=== PATIENT | male | born 1945 | race Caucasian/White ===

== ENCOUNTER 2017-09-12 08:43 | Day surgery (SDC) | payer OTHER ==
--- NOTE | 2017-09-07 16:40 | EKG ---
Test Date: 2017-09-07 Test Time: 16:37:21 Chair Mender: DAMARIS MEASUREMENT RESULTS: Intervals: Rate: 76 CA: 184 QRSD: 100 QT: 390 QTc: 438 [place]: P: 41 CA: 184 QRS: -34 T: 45 INTERPRETIVE STATEMENTS: Normal sinus rhythm Left axis deviation Abnormal ECG Compared to ECG 08/11/2017 12:57:16 Left-axis deviation now present Electronically Signed On 09-07-17 16:39:24 CDT by Pratik Fuchs
--- NOTE | 2017-09-07 16:54 | RAD REPORT ---
EXAM DESCRIPTION: RADOP - Outpt Chest Pa/Lat (2 Views) - 09/07/2017 4:39 pm CLINICAL HISTORY: Preop COMPARISON: August 2017 FINDINGS: A 9 millimeter nodular opacity overlies the right lung base. The left lung appears clear. The heart is normal size. The aorta is tortuous/ectatic. A central venous catheter has its limbs in the superior vena cava. IMPRESSION: 9 millimeter nodular opacity overlying the right lung base likely either represents a pu lmonary nodule or nipple shadow. Oblique and frontal chest films with a right nipple marker is recomm ended for further evaluation
[2017-09-07 16:59] LABS: Absolute Lymphocytes (CBC) 1.3 K/uL (0.7-4.9); Absolute Monocytes 0.8 K/uL (0.1-1.3); Absolute Neutrophil 7.1 K/uL (1.8-8.0); Basophils % 1.1 % (0-1.3); Eosinophils % 8.3 % (0-4.4); Hematocrit 32.6 % (39.6-49.0); Lymphocytes % 13.1 % (15.3-44.8); MCH 27.1 pg (27.0-35.0); MCV 84.4 fL (80-100); MPV 7.8 fL (7.6-11.3); Monocytes % 7.5 % (3.3-12.3); RBC Red Blood Cell Count 3.86 M/uL (4.33-5.43)
[2017-09-07 17:04] LABS: Urine Appearance CLEAR; Urine Bilirubin NEGATIVE (NEG); Urine Blood 2+ (NEG); Urine Color YELLOW; Urine Glucose NEGATIVE (NEG); Urine Protein 1+ (NEG); Urine Specific Gravity <=1.005 (1.005-1.030); Urine Urobilinogen 0.2 mg/dL (0.2-1.0); Urine pH 7.5 (5.0-7.0)
[2017-09-07 17:10] LABS: Protime INR 1.07
[2017-09-07 17:14] LABS: Urine Microscopic Reflex ORDER UMIC
[2017-09-07 17:30] LABS: Urine Amorphous Sediment 1+ /HPF (NONE SEEN); Urine Bacteria <20 /HPF (NONE SEEN); Urine Culture Reflex Order NOT NEEDED
[2017-09-12] MEDS ORDERED: NA CHLORIDE 0.9% 1,000 ML ONE (08:56)
[2017-09-12] MEDS ORDERED: MIDAZOLAM HCL 2 MG/2 ML INJ ONE (09:45)
[2017-09-12] MEDS ORDERED: PROPOFOL 200 MG/20 ML VIAL IV ONE (09:45)
[2017-09-12] MEDS ORDERED: LIDOCAINE 1% MPF 5 ML VIAL ONE (09:46)
[2017-09-12] MEDS ORDERED: FENTANYL CITR 100 MCG/2 ML ONE ×2 (09:46→10:54)
[2017-09-12] MEDS: GENTAMICIN 80 MG/100 ML BAG 80 MG/100 ML BAG IV ONE ×3 (10:10→10:20)
[2017-09-12] MEDS ORDERED: Phenylephrine HCl 10 MG/ML 1 ML VIAL ONE (10:48)
[2017-09-12] MEDS ORDERED: KETOROLAC 30 MG/ML INJ ONE (11:17)
[2017-09-12] MEDS ORDERED: ONDANSETRON 4 MG/2 ML VIAL ONE (11:17)
[2017-09-12 12:25] VITALS: O2SAT 100
[2017-09-12] MEDS ORDERED: IRR IRR ONE (12:26)
[2017-09-12] MEDS ORDERED: NACL 0.9% IRR ONE (12:26)
[2017-09-12 14:16] VITALS: BP 166/76; TEMP 96.5
== END 2017-09-12 14:00 | disposition home or self-care (01) ==
LOC: OR 08:43
PROVIDERS: ATTEND Urology
PROC: 0VT08ZZ Resection of Prostate, Via Natural or Artificial Opening Endoscopic (ICD-10-PCS; principal; 2017-09-12 10:00)
DX: N40.1 Benign prostatic hyperplasia with lower urinary tract symptoms (principal); R33.8 Other retention of urine; R39.12 Poor urinary stream; N13.9 Obstructive and reflux uropathy, unspecified; N42.9 Disorder of prostate, unspecified; I10 Essential (primary) hypertension; K21.9 Gastro-esophageal reflux disease without esophagitis; I12.0 Hypertensive chronic kidney disease with stage 5 chronic kidney disease or end stage renal disease; N18.6 End stage renal disease; Z99.2 Dependence on renal dialysis; Z80.3 Family history of malignant neoplasm of breast
CPT/HCPCS: 36415; 52601; 71046; 80048; 85025; 85610; 85730; 87077; 87086; 87088; 87186; 88305; 93005; J1580; J2250; J2370; J2405; J3010 ×2; J7030; 81003; 81015

== ENCOUNTER 2018-04-12 09:06 | Day surgery (SDC) | payer OTHER ==
[2018-04-11 14:35] LABS: Absolute Monocytes 0.6 K/uL (0.1-1.3); Absolute Neutrophil 5.5 K/uL (1.8-8.0); Basophils % 0.7 % (0-1.3); Hematocrit 35.6 % (39.6-49.0); Lymphocytes % 22.9 % (15.3-44.8); MCH 30.6 pg (27.0-35.0); MCV 90.4 fL (80-100); MPV 8.4 fL (7.6-11.3); Monocytes % 7.2 % (3.3-12.3); RBC Red Blood Cell Count 3.94 M/uL (4.33-5.43)
--- OUTSIDE RECORDS SUMMARY | 2018-04-12 09:21 | XMS REPORT | Continuity of Care Document ---
:1945 Author Organization Interface Problems Problem Status Onset Classification Date Comments Source Date Reported SDH, SYNCOPE Active 11/14/[address] SYNCOPE Active 11/14/[address] Alcoholism, Resolved Problem 12/06/2015 OPID chronic [place],[facility] BPH (<span Resolved Problem 12/06/2015 OPID ID="[id number] [facility] ">Confirmed</spa [place] n>) [facility] HTN (<span Resolved Problem 12/06/2015 OPID ID="[id number] [facility] ">Confirmed</spa [place] n>) [facility] Obesity Active Problem 12/06/2015 OPID [place] NONTRAUMATIC Active [facility] SUBDURAL Medical HEMORRHAGE, Center UNSPEC Medications Medication Details Route Status Patient Ordering Order Source Instructions Provider Date Levetiracetam 500 mg=1 Active [facility] 500 MG Oral tab, PO, 016 Medical Tablet Q12H, Take Center until night of 11/21/15, # 11 tab, 0 Refill(s) Flomax 0.4 mg, 1 No Longer [facility] cap, Route: Active 016 Medical PO, Drug Center form: CAP, Q12H, Dosing Weight 113.636, kg, Start date: 11/15/15 9:00:00 CDT, Duration: 30 day, Stop date: 12/14/15 21:00:00 CDTNotes: (Same As: Flomax) "Do Not Crush" Saline Flush 10 ml, No Longer [facility] 0.9% Route: IVP, Active 016 Medical Drug Form: Center INJ, Dosing Weight 113.636, kg, Q12H, Start date: 11/15/15 9:00:00 CDT, Duration: 30 day, Stop date: 12/14/15 21:00:00 CDTNotes: (Same as: BD Posiflush) Docusate 100 mg, 1 No Longer [facility] cap, Route: Active 016 Medical PO, Drug Center form: CAP, Q12H, Dosing Weight 113.636, kg, Start date: 11/15/15 9:00:00 CDT, Duration: 30 day, Stop date: 12/14/15 21:00:00 CDTNotes: (Same as: Colace) (Do Not Crush) sennosides, FPC 8.6 mg, 1 No Longer [facility] tab, Route: Active 016 Medical PO, Drug Center Form: TAB, Dosing Weight 113.636, kg, Q12H, Start date: 11/15/15 9:00:00 CDT, Duration: 30 day, Stop date: 12/14/15 21:00:00 CDTNotes: (Same as: Senokot) Levetiracetam 500 mg, 1 No Longer [facility] tab, Route: Active 016 Medical PO, Drug Center form: TAB, Q12H, Dosing Weight 113.636, kg, Start date: 11/15/15 9:00:00 CDT, Stop date: 11/21/15 22:00:00 CDTNotes: (Same as:Keppra) metoprolol 25 mg, 1 No Longer [facility] tartrate tab, Route: Active 016 Medical PO, Drug Center form: TAB, Q12H, Dosing Weight 113.636, kg, Start date: 11/15/15 9:00:00 CDT, Duration: 30 day, Stop date: 12/14/15 21:00:00 CDTNotes: (Same as: Lopressor) Protonix 40 mg, 1 No Longer [facility] tab, Route: Active 016 Medical PO, Drug Center form: ECTAB, Before Breakfast, Start date: 11/15/15 8:30:00 CDT, Duration: 30 day, Stop date: 12/15/15 7:30:00 CDTNotes: Tablet should not be chewed or crushed. (Same as: Protonix) Calcium 1,000 mg, 10 Inactive [facility] Gluconate mL, Route: 016 Medical IVPB, ONCE, Center Dosing Weight 113.636, kg, Start date: 11/15/15 8:15:00 CDT, Stop date: 11/15/15 8:15:00 CDTNotes: WASTE: F/P - Sink; E - Municipal Trash Bin Omeprazole 40 mg, Inactive [facility] Route: PO, 016 Medical Drug form: [place] ECCAP, Before Breakfast, Dosing Weight 113.636, kg, Start date: 11/15/15 7:30:00 CDT, Duration: 30 day, Stop date: 12/14/15 7:30:00 CDT Hydralazine 20 mg, 1 mL, No Longer [facility] Route: IVP, Active 016 Medical Drug form: [place] INJ, Q4H, Dosing Weight 113.636, kg, PRN Other -See Comment, Start date: 11/15/15 6:30:00 CDT, Duration: 30 day, Stop date: 12/15/15 6:29:00 CDT, SBP >160Notes: (Same as: Apresoline) Push over 5 minutes Omeprazole 40 MG 40 mg=1 cap, Active [facility] Enteric Coated PO, Daily, # 016 Medical Capsule 30 cap, 0 [place] [Prilosec] Refill(s) Bupropion PO, 0 Active [facility] Refill(s) [address] [place] [address] Lisinopril PO, BID, 0 Active [facility] Refill(s) [address] [place] [address] Flomax 0.4 mg, PO, Active [facility] BID, 0 016 Medical Refill(s) [place] metoprolol BID, 0 Active [facility] tartrate Refill(s) [address] [place] [address] Saline Flush 10 ml, No Longer [facility] 0.9% Route: IVP, Active 016 Medical Drug Form: [place] INJ, Dosing Weight 113.636, kg, PRN, PRN Line Flush, Start date: 11/15/15 2:45:00 CDT, Duration: 30 day, Stop date: 12/15/15 2:44:00 CDTNotes: (Same as: BD Posiflush) Ondansetron 4 mg, 2 mL, No Longer [facility] Route: IVP, Active 016 Medical Drug form: [place] INJ, Q8H, Dosing Weight 113.636, kg, PRN Nausea & Vomiting, Start date: 11/15/15 2:45:00 CDT, Duration: 30 day, Stop date: 12/15/15 2:44:00 CDTNotes: (Same as: Zofran) MEDICATION WASTE Product Size: 4 mg Product Wasted: ___ mg Levetiracetam 1,000 mg, Inactive [facility] Route: IVPB, 016 Medical ONCE, Dosing Center Weight 113.636, kg, Start date: 11/15/15 2:45:00 CDT, Stop date: 11/15/15 2:45:00 CDTNotes: Same as Keppra Mix with 100 mL NS, LR or D5W MEDICATION WASTE Product Size: 500 mg Product Wasted: ___ mg Allergies, Adverse Reactions, Alerts Substance Category Reaction Severity Reaction Status Date Comments Source type Reported Immunizations Immunization Date Given Site Status Last Updated Comments Source Results Order Name Results Value Reference Date Interpretation Comments Source Range Brain wo Brain wo EXAM: CT BRAIN WITHOUT CONTRAST 12/02 [facility] contrast CT contrast CT [facility] INDICATION: Subdural hemorrhage Read by: Alena Case MD Dictated Date/time: 12/03/15 11:46 Electronically Signed by: Alena Case MD 12/03/15 11:49 FINAL REPORT COMPARISON: Outside CT 11/15/2015 TECHNIQUE: Routine axial CT images of the brain were obtained. DISCUSSION: Stable size of right frontal convexity subdural hemorrhage now decreased in attenuation. No interval new hemorrhage. No mass effect. No acute infarction. No hydrocephalus. Calvarium is intact. Paranasal sinuses are clear. IMPRESSION: Stable size of right convexity subdural hematoma. No interval new hemorrhage. No mass effect. CHEM PANEL Phosphorus 2.8 mg/dL 2.5 - 4.5 11/15 [facility]2015 [facility] CHEM PANEL Magnesium Lvl 2.1 mg/dL 1.8 - 2.4 11/15 [facility]2015 [facility] ELECTROLYTE AGAP 15.1 meq/L 10.0 - 11/15 [facility] S 20.0 [facility] ELECTROLYTE eGFR 87 11/15 Result Comment: The eGFR is calculated using the CKD-EPI formula. In most young, healthy individuals the eGFR will be >90 mL/ min/1.73m2. The eGFR declines with age. An eGFR of 60-89 may be normal in [facility] mL/min/1.7 /2015 some populations, particularly the elderly, for whom the CKD-EPI formula has not been extensively validated. Use of the eGFR is not recommended in the following populations: [address] Individuals with unstable creatinine concentrations, including patients and those with serious co-morbid conditions. Patients with extremes in muscle mass or diet. The data above are obtained from the National Kidney Disease Education Program (NKDEP) which additionally recommends that when the eGFR is used in patients with extremes of body mass index for purposes of drug dosing, the eGFR should be multiplied by the estimated BMI. ELECTROLYTE Sodium Lvl 140 meq/L 135 - 145 11/15 [facility]2015 [facility] ELECTROLYTE Potassium Lvl 4.1 meq/L 3.5 - 5.1 11/15 [facility]2015 [facility] ELECTROLYTE Chloride Lvl 108 meq/L 95 - 109 11/15 [facility]2015 [facility] ELECTROLYTE BUN 11 mg/dL 7 - 22 11/[address] ELECTROLYTE Creatinine 0.86 mg/dL 0.50 - 11/15 [facility] Lvl 1.40 [facility] ELECTROLYTE Glucose Lvl 101 mg/dL 70 - 99 11/15 [facility]2015 [facility] ELECTROLYTE CO2 21 meq/L 24 - 32 11/15 [facility]2015 [facility] ELECTROLYTE Calcium Lvl 8.3 mg/dL 8.5 - 10.5 11/15 [facility]2015 [facility] HEMATOLOGY MPV 7.6 fL 7.4 - 10.4 11/15 [facility]2015 [facility] HEMATOLOGY RDW 13.1 % 11.5 - 11/15 [facility] 14.5 [facility] HEMATOLOGY MCV 88.8 fL 80.0 - 11/15 [place] 94.0 [facility] HEMATOLOGY MCH 30.2 pg 27.0 - 11/15 [place] 31.0 [facility] HEMATOLOGY WBC 8.5 K/CMM 3.7 - 10.4 11/15 [facility]2015 [facility] HEMATOLOGY RBC 4.57 M/CMM 4.70 - 11/15 [place] 6.10 [facility] HEMATOLOGY Hgb 13.8 g/dL 14.0 - 11/15 [place] 18.0 [facility] HEMATOLOGY Hct 40.5 % 42.0 - 06/13 [facility] 54.0 /2015 [facility] HEMATOLOGY MCHC 34.0 g/dL 32.0 - 11/15 [facility] 36.0 [facility] HEMATOLOGY Platelet 200 K/CMM 133 - 450 11/[address] HEMATOLOGY Lymphocytes 25.4 % 20.0 - 11/15 [facility] 40.0 /2015 [facility] HEMATOLOGY Segs 59.0 % 45.0 - 11/15 [facility] 75.0 [facility] HEMATOLOGY Basophils 0.4 % 0.0 - 1.0 11/[address] HEMATOLOGY Segs-Bands # 5.0 K/CMM 1.5 - 8.1 11/[address] HEMATOLOGY Lymphocytes # 2.1 K/CMM 1.0 - 5.5 11/[address] HEMATOLOGY Monocytes 8.9 % 2.0 - 12.0 11/[address] HEMATOLOGY Eosinophils 6.3 % 0.0 - 4.0 11/[address] HEMATOLOGY Eosinophils # 0.5 K/CMM 0.0 - 0.5 11/[address] HEMATOLOGY Monocytes # 0.8 K/CMM 0.0 - 0.8 11/[address] PARATHYROID Ca Norm WB 1.14 1.05 - 11/15 [facility] PROFILE mMol/L 1. [facility] PARATHYROID Ca Ion WB 1.14 1. - 11/15 [facility] PROFILE mMol/L [address] [place] [address] URINE AND UA Hyal Cast 3 /LPF 0 - 2 11/14 [facility] /[address] [place] [address] URINE AND UA Mucus Few /LPF None Seen 11/14 [facility] /LPF /[address] [place] [address] URINE AND UA Amorph Occasional None Seen 11/14 [facility] Kimberly /HPF /HPF /[address] [place] [address] URINE AND UA Sq Epi None Seen 11/[address] URINE AND UA Renal Epi RARE <=0 11/[address] URINE AND UA <=1.0 0.1 - 1.0 11/14 [facility] Urobilinogen mg/dL /[address] [place] [address] URINE AND UA Bili Negative Negative 11/14 [facility] /[address] [place] [address] *NA* Center (11/15/15 11:14 AM) URINE AND UA Ketones Negative Negative 11/14 [facility] STOOL mg/dL mg/dL /2015 [facility] URINE AND UA Glucose Negative Negative 11/14 [facility] STOOL mg/dL mg/dL /2015 [facility] URINE AND UA Spec Grav 1.005 <=1.030 11/14 [facility] URINE AND UA Bacteria Occasional None Seen 11/14 [facility] /HPF /HPF /2015 [facility] URINE AND UA RBC null 0 - 2 11/14 [facility] /2015 [facility] URINE AND UA WBC null 0 - 5 11/14 [facility] /2015 [facility] URINE AND UA Leuk Est Negative Negative 11/14 [facility] (11/15/15 11:14 AM) [place] URINE AND UA Nitrite Negative Negative 11/14 [facility] (11/15/15 11:14 AM) [place] URINE AND UA Blood Negative Negative 11/14 [facility] (11/15/15 11:14 AM) [place] URINE AND UA pH 5.5 5.0 - 8.0 11/14 [facility] URINE AND UA Protein Negative Negative 11/14 [facility] mg/dL mg/dL [facility] URINE AND UA Color Light Yellow Yellow 11/14 [facility] *NA* Center (11/15/15 11:14 AM) URINE AND UA Turbidity Clear Clear 11/14 [facility] (11/15/15 11:14 AM) [place] CARDIAC Troponin-I null 0.00 - 11/14 [facility] ENZYMES 0.40 /2015 [facility] CARDIAC Troponin-T null 0.000 - 11/14 [facility] ENZYMES 0.100 /2015 [facility] CARDIAC Total CK 87 unit/L 12 - 191 11/14 [facility] ENZYMES /2015 [facility] CARDIAC CK MB Index 2.6 0.0 - 2.5 11/14 [facility] ENZYMES /2015 [facility] CARDIAC CK MB 2.3 ng/mL 0.5 - 3.6 11/14 [facility] ENZYMES 2015 [facility] CHEM PANEL Phosphorus 3.0 mg/dL 2.5 - 4.5 11/14 [facility]2015 [facility] CHEM PANEL Magnesium Lvl 2.4 mg/dL 1.8 - 2.4 11/[address] CHEM PANEL Total Protein 6.2 g/dL 6.4 - 8.4 11/14 [facility] CHEM PANEL Albumin Lvl 3.3 g/dL 3.5 - 5.0 11/14 [facility]2015 [facility] CHEM PANEL AST 15 unit/L 0 - 37 11/14 [facility]2015 [facility] CHEM PANEL ALT 31 unit/L 0 - 65 11/[address] CHEM PANEL Bili Direct 0.1 mg/dL 0.0 - 0.3 11/14 [facility]2015 [facility] CHEM PANEL Bili Total 0.6 mg/dL 0.2 - 1.3 11/14 2015 [facility] CHEM PANEL Alk Phos 31 unit/L 39 - 136 11/14 2015 [facility] CHEM PANEL Globulin 2.9 g/dL 2.0 - 4.0 11/14 [facility]2015 [facility] CHEM PANEL A/G Ratio 1.1 0.7 - 1.6 11/[address] CHEM PANEL Bili Indirect 0.5 mg/dL 0.0 - 1.0 11/14 [facility]2015 [facility] CHEM PANEL Lactic Acid 1.0 mMol/L 0.5 - 2.2 11/14 [facility] CHEM PANEL eGFR 77 11/14 Result Comment: The eGFR is calculated using the CKD-EPI formula. In most young, healthy individuals the eGFR will be >90 mL/ min/1.73m2. The eGFR declines with age. An eGFR of 60-89 may be normal in [facility] mL/min/1. some populations, particularly the elderly, for whom the CKD-EPI formula has not been extensively validated. Use of the eGFR is not recommended in the following populations: [address] Individuals with unstable creatinine concentrations, including patients and those with serious co-morbid conditions. Patients with extremes in muscle mass or diet. The data above are obtained from the National Kidney Disease Education Program (NKDEP) which additionally recommends that when the eGFR is used in patients with extremes of body mass index for purposes of drug dosing, the eGFR should be multiplied by the estimated BMI. CHEM PANEL Sodium Lvl 138 meq/L 135 - 145 11/14 [facility] CHEM PANEL Potassium Lvl 4.4 meq/L 3.5 - 5.1 11/[address] CHEM PANEL Chloride Lvl 109 meq/L 95 - 109 11/14 [facility]2015 [facility] CHEM PANEL CO2 18 meq/L 24 - 32 11/14 [facility] CHEM PANEL Calcium Lvl 8.0 mg/dL 8.5 - 10.5 11/14 [facility] CHEM PANEL Glucose Lvl 89 mg/dL 70 - 99 11/14 [facility] CHEM PANEL BUN 11 mg/dL 7 - 22 11/14 [facility] CHEM PANEL Creatinine 0.98 mg/dL 0.50 - 11/14 [facility] Lvl 1.40 /2015 [facility] CHEM PANEL AGAP 15.4 meq/L 10.0 - 11/14 [place] 20.0 [facility] HEMATOLOGY Eosinophils # 0.4 K/CMM 0.0 - 0.5 11/14 [facility] HEMATOLOGY Monocytes 7.9 % 2.0 - 12.0 11/14 [facility] HEMATOLOGY Segs 68.3 % 45.0 - 11/14 [place] 75.0 /2015 [facility] HEMATOLOGY Lymphocytes 19.3 % 20.0 - 11/14 [place] 40.0 [facility] HEMATOLOGY Lymphocytes # 1.8 K/CMM 1.0 - 5.5 11/14 [facility] HEMATOLOGY Segs-Bands # 6.3 K/CMM 1.5 - 8.1 11/14 [facility] HEMATOLOGY Basophils 0.4 % 0.0 - 1.0 11/14 [facility] HEMATOLOGY Eosinophils 4.1 % 0.0 - 4.0 11/14 [facility] HEMATOLOGY Monocytes # 0.7 K/CMM 0.0 - 0.8 11/14 [facility] HEMATOLOGY INR 1.12 0.85 - 11/14 [place] 1.17 /2015 [facility] HEMATOLOGY PTT 26.0 s 22.9 - 11/14 [place] 35.8 /2016 [facility] HEMATOLOGY PT 14.7 s 12.0 - 06 [place] 14.7 /2015 [facility] HEMATOLOGY Hct 41.3 % 42.0 - 11/14 [place] 54.0 /2016 [facility] HEMATOLOGY MCV 90.2 fL 80.0 - 11/14 [place] 94.0 /2015 [facility] HEMATOLOGY Hgb 13.8 g/dL 14.0 - 06 [place] 18.0 [facility] HEMATOLOGY MCHC 33.5 g/dL 32.0 - 06 [facility] 36.0 /2015 [facility] HEMATOLOGY MPV 7.5 fL 7.4 - 10.4 11/[address] HEMATOLOGY RDW 13.1 % 11.5 - 11/14 [facility] 14.5 [facility] HEMATOLOGY Platelet 212 K/CMM 133 - 450 11/[address] HEMATOLOGY MCH 30.2 pg 27.0 - 11/14 [facility] 31.0 [facility] HEMATOLOGY WBC 9.2 K/CMM 3.7 - 10.4 11/14 [facility] /[address] [place] [address] HEMATOLOGY RBC 4.58 M/CMM 4.70 - 11/14 [facility] 6.10 [facility] PARATHYROID Ca Norm WB 1.03 1. - 11/14 [facility] PROFILE mMol/L 1. [facility] PARATHYROID Ca Ion WB 1.04 1. - 11/14 [facility] PROFILE mMol/L 1. [facility] SPECIAL Hgb A1C 5.0 % <=5.6 % 11/14 [facility] CHEMISTRY [facility] Chest 1view Chest 1view EXAM: XR CHEST 1 VIEW 11/14 [facility] DX DX [facility] DATE: 11/15/2015 8:19 AM CDT Read by: Brenna Chan MD Dictated Date/time: 11/15/15 13:19 Electronically Signed by: Brenna Chan MD 11/15/15 14:00 FINAL REPORT INDICATION: Abnormal chest sounds. FINDINGS: Comparison is made to November 13. The cardiomediastinal silhouette is stable. The lungs are clear bilaterally well-expanded. No pleural effusions are seen. IMPRESSION: The lungs are clear. Brain wo Brain wo EXAM: CT BRAIN WITHOUT CONTRAST 11/14 [facility] contrast CT contrast CT /[address] [place] [address] DATE: 11/15/2015 1:57 AM CDT Read by: Laura Mistry Dictated Date/time: 11/15/15 09:54 Electronically Signed by: Laura Mistry 11/15/15 09:57 FINAL REPORT INDICATION: Headache with Dizziness and Giddiness COMPARISON: Outside CT dated 11/14/2015 at 2130 hours TECHNIQUE: Routine axial CT images of the brain were obtained. DLP: 1174 mGy-cm FINDINGS: A subdural hematoma in the right frontal convexity, with a maximum thickness of 12 mm is identified, similar in appearance as compared to the previous exam. Owing to pre-existing volume loss, there is n o significant mass effect. No parenchymal abnormality is demonstrated. The ventricles and sulci are prominent. The paranasal sinuses, orbits and mastoids are unremarkable. There are atherosclerotic changes at the carotid siphons. IMPRESSION: Recent subdural hematoma in the right cerebral convexity, without significant mass effect or interval change. Resident preliminary report: Creator: Junior Black Date: Nov 15, 2015 02:13:21 Subject: 1.2 cm right frontoparietal SDH is unchanged from [facility] at 2129 hours november 13. No shift or herniation No other traumatic findings Vital Signs Vital Sign Value Date Comments Source Temperature Oral (F) 97.4 F 11/16/2015 [facility] Respitory Rate 36 11/16/2015 [facility] Systolic (mm Hg) 156 11/16/2015 [facility] Diastolic (mm Hg) 67 11/16/2015 [facility] Respitory Rate 28 11/16/2015 [facility] Systolic (mm Hg) 152 11/16/2015 [facility] Diastolic (mm Hg) 69 11/16/2015 [facility] Systolic (mm Hg) 147 11/16/2015 [facility] Diastolic (mm Hg) 67 11/16/2015 [facility] Respitory Rate 37 11/16/2015 [facility] Temperature Oral (F) 96.9 F 11/16/2015 [facility] Temperature Oral (F) 97.6 F 11/16/2015 [facility] Height 187.96 cm 11/15/2015 [facility] BMI Calculated 32.17 11/15/2015 [facility] Weight 113.636 11/15/2015 [facility] Weight 113.636 11/15/2015 [facility] BMI Calculated 32.17 11/15/2015 [facility] Height 187.96 cm 11/15/2015 [facility] Heart Rate 75 11/15/2015 [facility] Encounters Location Location Encounter Encounter Reason Attending ADM DC Status Source Details Type Number For Provider Date Date Visit [facility] [id number] Pe[facility] 11/14 11/15 [facility] /2015 [facility] Outpt Diag [id number] Arturo 12/02 12/03 [facility]2015 [facility] Procedures Procedure Code Date Perfomer Comments Source Tonsillectomy [id number] [facility] [place] Tonsillectomy [id number] [facility]
[2018-04-12] MEDS ORDERED: Ringers Lactate 1,000 ML IV ONE (10:12)
[2018-04-12] MEDS ORDERED: CEFAZOLIN/SWI 1gm 1 GM/10 ML SYR ONE (10:12)
[2018-04-12] MEDS ORDERED: BUPIVACAINE 0.5% PF 10 ML VIAL ONE (10:34)
[2018-04-12] MEDS ORDERED: MIDAZOLAM HCL 2 MG/2 ML INJ ONE (10:38)
[2018-04-12] MEDS ORDERED: LIDOCAINE 1% MPF 5 ML VIAL ONE (10:38)
[2018-04-12] MEDS ORDERED: PROPOFOL 200 MG/20 ML VIAL IV ONE (10:38)
[2018-04-12] MEDS ORDERED: FENTANYL CITR 100 MCG/2 ML ONE (10:38)
[2018-04-12 11:54] VITALS: TEMP 97.7; O2SAT 98
[2018-04-12] MEDS ORDERED: CODEINE 30MG/APAP 300MG TAB ONE (12:16)
[2018-04-12 13:46] VITALS: BP 151/70
--- NOTE | 2018-04-12 14:03 | OP ---
Date of Procedure: 04/12/2018 Surgeon: Tucker Dinh MD Preoperative Diagnosis: History of renal failure. Postoperative Diagnosis: History of renal failure. Procedure Performed: Removal of right chest Tesio catheter. Estimated Blood Loss: Minimal. Specimen: Tesio catheter. Findings: Normal anatomy. Anesthesia: MAC. Complications: None. Disposition: The patient tolerated the procedure in stable condition and was taken to Recovery in go od general condition. Procedure In Detail: The patient was brought to the OR and placed in supine position. MAC anesthesi a was begun. The patient was prepped and draped in usual sterile fashion. Lidocaine 1% was infiltra mitchell locally. A 15-blade was used to make an incision around the insertion site of the Tesio catheter . Subcutaneous tissue divided, and then cuff identified and freed from the surrounding tissue with s harp and blunt dissection, and then catheter was removed and sent to Pathology for identification. W ound irrigated. Bleeding controlled with cautery, and then 3-0 chromic used to approximate the subcu taneous tissue and close the skin. Sterile dressing was applied. The patient was awakened and taken to [facility] in good general condition. /MODL Voice ID: [id number] Report ID: [id number]
--- NOTE | 2018-04-12 14:09 | DS ---
Discharge Note: The patient will go to Day Surgery and home when stable. Disposition: Home. Condition: Stable. Discharge Instructions: Resume home medications and diet. Activity as tolerated. No heavy lifting. Remove outer dressing in 2 days. Shower. Keep wound clean and dry. Keep Steri-Strips on at all t imes. Follow up in my office in 2 weeks. Call for appointment. Tylenol No. 3 one tablet p.o. q.4h. p.r.n. pain. JAIDEN/BULMARO Voice ID: [id number] Report ID: [id number]
== END 2018-04-12 12:35 | disposition home or self-care (01) ==
LOC: OR 09:06
PROVIDERS: ATTEND Surgery
PROC: 0JPT0XZ Removal of Tunneled Vascular Access Device from Trunk Subcutaneous Tissue and Fascia, Open Approach (ICD-10-PCS; principal; 2018-04-12 11:00)
DX: Z45.2 Encounter for adjustment and management of vascular access device (principal)
CPT/HCPCS: 36415; 36589; 85025; 88300; J0690; J2250; J2704; J3010

== ENCOUNTER 2024-08-07 16:19 | Inpatient (IN) | payer OTHER ==
[2024-08-07 19:31] VITALS: BMI 26.3
[2024-08-07] MEDS ORDERED: LACTULOSE 20 GM/30 ML UCUP PO PRN (19:38)
[2024-08-07] MEDS ORDERED: POLYETHYL GLY 3350 17 GM/DOSE PO PRN ×2 (19:38→22:11)
[2024-08-07] MEDS: MIDODRINE HCL 5 MG TABLET PO SCH (20:34)
[2024-08-07] MEDS: ATORVASTATIN 40 MG TAB PO SCH (20:35)
[2024-08-07] MEDS: APIXABAN 2.5 MG TABLET PO SCH (20:35)
[2024-08-07] MEDS: MELATONIN 3 MG TABLET PO PRN (20:36)
[2024-08-07] MEDS: DOCUSATE NA/SENNA CONC 1 TAB PO SCH (20:36)
[2024-08-07 21:04] LABS: Renal Epithelial <5 /HPF (None Seen); Specific Gravity 1.006 (1.005-1.030); Sqamous Epithelial None Seen /HPF (None Seen); Urine Bacteria <20 /HPF (<20); Urine Bilirubin NEGATIVE (Negative); Urine Blood Negative (Negative); Urine Clarity Turbid (Clear); Urine Color Light-Yellow (Yellow); Urine Culture Reflex Order NOT NEEDED; Urine Glucose NEGATIVE (Negative); Urine Ketones NEGATIVE (Negative); Urine Micro Reflex YN NO BILL MICROSCOPIC; Urine Mucus Slight /HPF (None Seen); Urine Nitrite NEGATIVE (Negative); Urine Protein TRACE (Negative); Urine RBC None Seen /HPF (None Seen); Urine Urobilinogen Normal (Normal); Urine pH 6.5 (5.0-7.0)
[2024-08-08] MEDS: METOPROLOL TAR 25 MG TAB PO SCH (05:18)
[2024-08-08 06:37] LABS: Absolute Basophils 0.1 K/uL (0-0.5); Absolute Lymphocytes (CBC) 1.1 K/uL (0.7-4.9); Absolute Monocytes 0.6 K/uL (0.1-1.3); Absolute Neutrophil 3.7 K/uL (1.8-8.0); Eosinophils % 15.6 % (0-4.4); Hematocrit 22.6 % (39.6-49.0); Hemoglobin 7.6 g/dL (13.6-17.9); Lymphocytes % 16.5 % (15.3-44.8); MCH 29.1 pg (27.0-35.0); MCHC 33.7 g/dL (32.0-36.0); MCV 86.4 fL (80-100); MPV 7.5 fL (7.6-11.3); Monocytes % 9.7 % (3.3-12.3); Neutrophils % 57.2 % (41.7-73.7); Platelets 359 thou/uL (152-406); RBC Red Blood Cell Count 2.62 M/uL (4.33-5.43); Red Cell Distribution Width 14.9 % (12.1-15.2)
[2024-08-08 07:09] LABS: Albumin 2.1 g/dL (3.4-5.0); Anion Gap 11.6 mEq/L (5.0-15.0); Magnesium 1.9 mg/dL (1.6-2.4); Potassium 4.6 mEq/L (3.5-5.1)
[2024-08-08] MEDS: PANTOPRAZOLE 40MG TABLET PO SCH (07:20)
[2024-08-08] MEDS: LEVOTHYROXINE SOD 0.025 MG TAB PO SCH (07:20)
--- NOTE | 2024-08-08 08:42 | RAD REPORT ---
Procedure: Chest Single View HISTORY: Shortness of breath COMPARISON: 2018 FINDINGS: Mild to moderate bilateral pulmonary opacities.. Small bilateral pleural effusions. The heart is enlarged. Post surgical changes involve the chest Central venous catheter in place. IMPRESSION: These findings probably indicate mild to moderate CHF
[2024-08-08] MEDS: ASPIRIN EC 81 MG TAB PO SCH (08:45)
[2024-08-08] MEDS: CRANBERRY FRUIT EXTRACT 425 MG CAPSULE PO SCH (08:45)
[2024-08-08] MEDS: TAMSULOSIN 0.4 MG SR CAP PO SCH (08:46)
[2024-08-08] MEDS: CYANOCOBALAMIN 1,000 MCG TAB PO SCH (08:46)
[2024-08-08] MEDS: MIDODRINE HCL 5 MG TABLET PO SCH (08:47)
[2024-08-08] MEDS: SEVELAMER CARBONATE 800 MG TABLET PO SCH (08:47)
[2024-08-08 09:12] LABS: Band Neutrophils 1 % (0-1); Differential Total Cells Count 100; Eosinophils 12 % (0-3); Lymphocytes 8 % (15-42); Monocytes 15 % (0-10); Segmented Neutrophils 61 % (40-80)
[2024-08-08 09:13] LABS: Atypical Lymphocytes 1 %; Blood Morphology Comment NOTED (NOT SEEN); Platelet Estimate ADEQ
[2024-08-08] MEDS: FUROSEMIDE 40 MG TABLET PO SCH (10:50)
--- NOTE | 2024-08-08 18:21 | HP ---
Date of Admission: 08/07/2024 Time Of Service: 1 p.m. Chief Complaint: "I had a heart procedure. I need to get stronger." History Of Present Illness: Mr. Cunha is an 79-year-old patient with end-stage renal disease, on hem odialysis Monday, , Monday, seen by Edna rudolph. He has indwelling Bella catheter, coronar y artery disease, heart failure with ejection fraction 35% to 40%, gastroesophageal reflux, hypertens ion. He was seen at [facility] on 07/29/2024 and had worsening aortic valve stenosis and receive d aortic valve replacement and 2-vessel coronary artery bypass grafting. In addition, there was an a scending aortic aneurysm repair. After his sternotomy, he has been put on sternal precautions. He d id progress well and was transferred from the SICU to the floor 219. However, his course was complic ated by worsening acidosis, significant carbon dioxide retention, and was sent back to the ICU for re spiratory support, neuromonitoring at a higher level of care. 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 He also had requirement for chest tubes placed and those were removed on the and the . There was another tube placed in the chest on the right and that was removed on 08/07/2024. Four hours after the chest tube, repeat scan of the chest showed no significant fluid accumulation. The patient was evaluated by Therapy Service, found to require minimum assistance going up and down 5 steps, moderate assistance for bed mobilizat ion transfers, being able to perform activities of daily living, and had some difficulty with shortne ss of breath on exertion. He did of course had to have sternal precautions maintained. He required speech as he had mild dysphagia from pharyngeal level and was put on aspiration precautions. He was recommended to receive inpatient rehabilitation to decrease his risk of worsening and rehospitalizati on and to help him return his prior level of functioning. He does require for the end-stage renal di sease, on hemodialysis Tuesdays, , and Saturdays. His cardiac condition to be followed clos lauro monitoring and requires his blood sugars to be managed and blood pressures as well. He is theref ore in for rehabilitation unit to help him reduce his risk of rehospitalization and to return prior l evel of functioning. Initially, he was independent with all activities of daily living. Allergies: CEPHALEXIN AND DILTIAZEM ALONG WITH TAPE. X-ray/imaging: On 08/05/2024, a chest x-ray shows right IJ double-lumen catheter tip projecting over the lower SVC in the right atrium. Right chest pigtail tube is in a stable position. The lungs mouna w small right and moderate left pleural effusions. No pneumothorax. Chest x-ray on 08/04, mild beverly hilar and basilar opacities without change, small left pleural effusion. No visible pneumothorax. C hest x-ray on 08/02/2024, tip of the right internal jugular vein central catheter projects over the c avoatrial junction. A right pigtail catheter is in unchanged position projecting over the mid lung. Left pigtail catheter was removed, unchanged small left pleural effusion. Adjacent atelectasis or c onsolidation also there. The patient has had also multiple other x-rays done. Laboratory Studies: White blood cell count 6.5, hemoglobin 7.6, hematocrit 22.6, platelets 359, his eosinophils elevated to 15.6. Sodium 131, potassium 4.6, chloride 99, carbon dioxide 25, BUN 31, cre atinine 4.13, glucose 88, calcium 7.6, magnesium 1.9, albumin 2.1, prealbumin 8.0. His urinalysis is 500 esterase, trace protein, turbid clarity. Family History: Noncontributory. Medications: Tylenol Extra Strength 650 mg every 6 hours as needed, Eliquis 2.5 mg twice daily, aspi rin 81 mg daily, Lipitor 40 mg at bedtime, vitamin B12 250 mcg daily, Lasix 40 mg twice daily, lactul ose 2 g daily for constipation as needed, Synthroid 0.025 mg daily, melatonin 3 mg at bedtime, Lopres sor 12.5 mg twice daily, midodrine 10 mg 3 times daily, Protonix 40 mg daily, Senokot-S 2 twice daily , Renvela 800 mg 3 times daily with meals, Flomax 0.4 mg daily. Review of Systems: He does report a kind of blurred left-sided vision. When looking at objects, things on the left side appear blurred, but he is able to count fingers. Otherwise, no significant weakness appreciated for the patient's upper and lower extremities. No significant sensory loss. He is able to maintain his sternal precautions and very mild internal pain from his surgical site. Otherwise, no significant e kirill, clubbing, cyanosis. Good hemostasis at all surgical sites in his graft posterior donation site and the sternotomy area. Current Level Of Functioning: Eating independent, supervision for grooming and bathing, upper body d ressing supervision, moderate assistance for lower body dressing and donning and doffing footwear, to ileting at supervision, wheelchair and tub and shower transfer contact guard assistance. Ambulation, he did do 250 feet with contact guard assistance. Stairs, moderate assistance and comprehension. H savana is able to comprehend without any difficulty. Physical Examination: Vital Signs: Blood pressure 119/62, pulse 83, respiratory rate 18, temperature 97.7, oxygen saturati on 98%. Weight 205 pounds, height 6 feet 2 inches, BMI 26.3. General: Mr. Cunha is sitting in a chair beside his bed. HEENT: He is normocephalic, atraumatic. Sclerae anicteric. Oropharynx pink and moist. Neck: Supple. Chest: Clear. Extremities: No clubbing, cyanosis, or edema. Postoperative changes in the surgical site shows good hemostasis. He has a subtle decrease in the left visual field for both eyes, but able to count fing ers in all directions and identify movement in all visual gloria. Cranial nerves otherwise no focal deficits with more coordination and sensory. No focal deficits. Assessment: Mr. Cunha is an 79-year-old patient admitted to the inpatient rehabilitation unit with i mpairment category 01 stroke. Impairment group code is 01.4, stroke with a left visual field deficit without paresis. Etiologic diagnosis is right posterior cerebral artery stroke with left visual fie ld deficit. In addition, he has decreased mobility, decreased physical functioning, some mild dyspha heather, hypothyroidism, hypertension, congestive heart failure, prostate hypertrophy, dyslipidemia. He has orthostatic hypotension and constipation. Plan: He will have physical, occupational, and speech therapy 3.5 hours, 5 of 7 days. We will ronny nue Flomax for his prostate hypertrophy, Renvela for his renal issues and note he is also an end-stag e renal disease patient, on hemodialysis Tuesdays, , and Saturdays. We will continue with t he Renal Service, Protonix for GE reflux, metoprolol for heart rate and blood pressure control, midod rine for hypotension, Synthroid for hypothyroidism, lactulose for constipation, Lasix for fluid manag ement. Still makes urine, Lipitor for dyslipidemia, aspirin for stroke risk reduction, and Eliquis f or DVT risk reduction, Tylenol for pain. Comorbidities That Are Impacting Rehabilitation: As noted, he is end-stage renal disease patient, on hemodialysis on Tuesdays, , and Saturdays. His therapy will be worked around hemodialysis. In addition, he is to maintain sternal precautions and will have the surgical sites evaluated on a regular basis to rule out any secondary infection or any chance of a cellulitis. In addition, blood sugars and blood pressures will be carefully monitored and addressed. He has had the chest tubes rem ciara and a chest CT scan will be done if need be. Chest x-rays also for interval evaluation. Rehab Specific Plan: Mr. Cunha will have physical, occupational, and speech therapy 3.5 hours, 5 of 7 days, to improve his ability to transfer from bed to chair, to a toilet, on and off toilet, in and out of shower, to be able to ambulate with a rolling walker, right hand cane, and no assistive device at least 250 feet, to go up and down at least 10 steps with bilateral handrails and perform all cogn itive functioning independently and to work on improving his swallowing and safety awareness for swal lowing so that he is at minimal risk of aspiration. Mr. Cunha has a good understanding of the process of admission to the inpatient rehabilitation unit, how he will benefit from physical, occupational, and speech therapy. He will have 24 hours a day, 7 days a week skilled rehabilitation and nursing, daily physician evaluation and management, and social work program coordinator evaluation and management for discharge planning, home equipment, for continue all medicati ons and to continue with therapy. Barriers To Discharge: Mr. Cunha is end-stage renal disease patient as noted, but he is actually doi ng very well and therapy will be worked around that. He is beginning in a very high state of functio thad and is expected to do very well and no significant barriers expect him to stop him from going ho me at good time. Length Of Stay: About 10 days. Disposition: He is expected to go home with family. He does have the at home, but she does hav e some issues and his goal is for him to go home and be independent. Prognosis: Good. Code Status: Full code. Rehab Specific Goals: 1. Become independent with upper and lower body dressing, donning and doffing footwear. 2. Independently ambulate 250 feet with a rolling walker. 3. Independently mobilize a wheelchair 250 feet. 4. Also independently ambulate with a quad cane or a single prong cane over 250 feet. 5. Independently perform all cognitive functioning and safety awareness issues. The above goals were reviewed with Mr. Cunha and he is in agreement. By signing this document, I acknowledge I personally performed a full physical examination on Mr. Sawant ar no later than 24 hours after his admission to the inpatient rehabilitation unit and determined ngoc t he is able to tolerate the above course of treatment at an intensive level for a reasonable period of time. A detailed individualized plan of care for him will be completed by hospital day 4 based on the preadmission screen, history and physical, and therapy evaluations. MOLLY Voice ID: [id number]
--- NOTE | 2024-08-09 13:52 | P.RH.PN ---
Estimated Length of Stay: 13 Expected Discharge Date: 08/17/24 Discharge Disposition Plan: Home Family Support: Yes Vital Signs: Last Vital Signs Temp 97.2 F 08/09/24 06:48 Pulse 67 08/09/24 08:11 Resp 18 08/09/24 06:48 BP 134/64 08/09/24 08:11 Pulse Ox 100 08/09/24 06:48 Laboratory: Laboratory Last Values WBC 6.50 thou/uL (4.3-10.9) 08/08/24 05:29 RBC 2.62 M/uL (4.33-5.43) L 08/08/24 05:29 Hgb 7.6 g/dL (13.6-17.9) L 08/08/24 05:29 Hct 22.6 % (39.6-49.0) L 08/08/24 05:29 MCV 86.4 fL (80-100) 08/08/24 05:29 MCH 29.1 pg (27.0-35.0) 08/08/24 05:29 MCHC 33.7 g/dL (32.0-36.0) 08/08/24 05:29 RDW 14.9 % (12.1-15.2) 08/08/24 05:29 Plt Count 359 thou/uL (152-406) 08/08/24 05:29 MPV 7.5 fL (7.6-11.3) L 08/08/24 05:29 Neutrophils % 57.2 % (41.7-73.7) 08/08/24 05:29 Lymphocytes % 16.5 % (15.3-44.8) 08/08/24 05:29 Monocytes % 9.7 % (3.3-12.3) 08/08/24 05:29 Eosinophils % 15.6 % (0-4.4) H 08/08/24 05:29 Basophils % 1.0 % (0-1.3) 08/08/24 05:29 Absolute Neutrophils 3.7 K/uL (1.8-8.0) 08/08/24 05:29 Segmented Neutrophils 61 % (40-80) 08/08/24 05:29 Band Neutrophils 1 % (0-1) 08/08/24 05:29 Absolute Lymphocytes 1.1 K/uL (0.7-4.9) 08/08/24 05:29 Lymphocytes 8 % (15-42) L 08/08/24 05:29 Monocytes 15 % (0-10) H 08/08/24 05:29 Absolute Monocytes 0.6 K/uL (0.1-1.3) 08/08/24 05:29 Eosinophils 12 % (0-3) H 08/08/24 05:29 Absolute Eosinophils 1.0 K/uL (0-0.5) H 08/08/24 05:29 Basophils 2 % (0-1) H 08/08/24 05:29 Absolute Basophils 0.1 K/uL (0-0.5) 08/08/24 05:29 Atypical Lymphocytes 1 % 08/08/24 05:29 Platelet Estimate Adeq 08/08/24 05:29 Schistocytes 1+ 08/08/24 05:29 Morphology Comment Noted (NOT SEEN) 08/08/24 05:29 Sodium 131 mEq/L (136-145) L 08/08/24 05:29 Potassium 4.6 mEq/L (3.5-5.1) 08/08/24 05:29 Chloride 99 mEq/L (98-107) 08/08/24 05:29 Carbon Dioxide 25 mEq/L (21-32) 08/08/24 05:29 Anion Gap 11.6 mEq/L (5.0-15.0) 08/08/24 05:29 BUN 31 mg/dL (7-18) H 08/08/24 05:29 Creatinine 4.13 mg/dL (0.70-1.30) H 08/08/24 05:29 Est GFR (CKD-EPI) 14 ml/min (=/>90) L 08/08/24 05:29 Glucose 88 mg/dL (74-106) 08/08/24 05:29 Calcium 7.6 mg/dL (8.5-10.1) L 08/08/24 05:29 Magnesium 1.9 mg/dL (1.6-2.4) 08/08/24 05:29 Albumin 2.1 g/dL (3.4-5.0) L 08/08/24 05:29 Prealbumin 8.0 mg/dL (20-40) L 08/08/24 05:29 Urine Color Light-yellow (Yellow) 08/07/24 20:40 Urine Clarity Turbid (Clear) H 08/07/24 20:40 Urine pH 6.5 (5.0-7.0) 08/07/24 20:40 Ur Specific [place] 1.006 (1.005-1.030) 08/07/24 20:40 Glucose (UA)(Auto) Negative (Negative) 08/07/24 20:40 Urine Ketones Negative (Negative) 08/07/24 20:40 Urine Blood Negative (Negative) 08/07/24 20:40 Urine Nitrite Negative (Negative) 08/07/24 20:40 Urine Bilirubin Negative (Negative) 08/07/24 20:40 Urine Urobilinogen Normal (Normal) 08/07/24 20:40 Ur Leukocyte Esterase 500 Patricia/uL (Negative) H 08/07/24 20:40 Urine RBC None seen /HPF (None Seen) 08/07/24 20:40 Urine WBC 5-10 /HPF (<5) 08/07/24 20:40 Ur Squamous Epith Cells None seen /HPF (None Seen) 08/07/24 20:40 U Non-Squamous Epi Cells <5 /HPF (None Seen) 08/07/24 20:40 Ur Renal Epithelial Cell <5 /HPF (None Seen) 08/07/24 20:40 Urine Bacteria <20 /HPF (<20) 08/07/24 20:40 Urine Mucus Slight /HPF (None Seen) 08/07/24 20:40 Urine Culture Reflexed Not needed 08/07/24 20:40 Urine Total Protein Trace (Negative) H 08/07/24 20:40 Weight: 215 lb 3.2 oz Physician Update: Labs reviewed. He is a renal patient with low Hgb of 7.6. He missed a day of dialysis and it will be done today and tomorrow. He has a sacral wound and median sternotomy. MOCA 25, with amnestic loss. Left visual field deficit. CGA bed mobility, 125' with rollator, WC 125'. Mod assist toileting, showering, max for lower body dressing and foot wear and showering. Summary: Patient's care plan and assisted goals have been reviewed and revised as necessary. Please see the Rehabilitation Signature page for all necessary signatures.
[2024-08-09 13:53] LABS: Hepatitis B Surface Ab - Quant 589.15 mIU/mL (<8.0); Hepatitis B surface AG Interp. Nonreactive (Nonreactive)
[2024-08-09 13:54] LABS: HBsAG Nonreactive Report Report
[2024-08-09] MEDS: ALBUMIN HUMAN 25% 100 ML IV ONE (16:38)
--- NOTE | 2024-08-09 23:02 | CON ---
Date of Consultation: 08/09/2024 Chief Complaint: End-stage renal disease. History Of Present Illness: Patient is undergoing rehab. He is dialysis dependent. He has history of end-stage renal disease, HD on Monday, , and Monday. He has chronic indwelling Bella catheter artery, coronary artery disease, BPH, heart failure, ejection fraction 35% to 40%, GERD, and hypertension. Patient was seen at [facility] on July 29, and had worsening of aortic valve stenosis and received aortic valve replacement and 2- vessel coronary artery disease bypass grafting. The patient in addition had ascending aortic aneurysm repair. He is currently at rehab. He is undergoing rehab. The patient is hemodynamically stable. He denies PND. Review of Systems: Constitutional: Denies fevers or chills. Eyes: Denies vision changes. Ears, Nose, Mouth, and Throat: Denies sore throat, earache. Respiratory: Denies PND or orthopnea. Cardiovascular: Denies chest pain or palpitations. GI: Denies nausea or vomiting. : Denies dysuria or hematuria. All other systems reviewed and all are negative. Past Medical History: as stated above . Social History: Denies tobacco, alcohol. Denies drugs. Physical Examination: General: The patient is awake, alert, follows commands. Eyes: Anicteric sclerae, EOMI. Ears, Nose, Mouth, and Throat: Oral mucosa moist. No pallor. Heart: S1, S2. No pericardial friction rub. Abdomen: Soft, benign, nontender. Extremities: Edema present. Impression And Plan: 1. Fluid overload, lower extremity edema. The patient will continue HD with Ultrafilatration, adjust UF goal according to volemia status. Plan is to schedule daily dialysis for volume control and metabolic clearance 2. Hypertension. Continue to adjust Bp meds . 3. Anemia acute on chronic kidney disease, continue NATACHA, monitor H/H. 4. History of coronary artery disease. Workup and evaluation by Cardiology. SUNNY/BULMARO Voice ID: [id number] Report ID: [id number] MTDD
[2024-08-10 05:59] LABS: Absolute Basophils 0.1 K/uL (0-0.5); Absolute Eosinophils 0.9 K/uL (0-0.5); Absolute Lymphocytes (CBC) 0.9 K/uL (0.7-4.9); Absolute Monocytes 0.5 K/uL (0.1-1.3); Absolute Neutrophil 3.4 K/uL (1.8-8.0); Basophils % 0.9 % (0-1.3); Eosinophils % 16.3 % (0-4.4); Hematocrit 21.2 % (39.6-49.0); Hemoglobin 7.4 g/dL (13.6-17.9); Lymphocytes % 16.2 % (15.3-44.8); MCH 29.7 pg (27.0-35.0); MCHC 34.8 g/dL (32.0-36.0); MCV 85.5 fL (80-100); MPV 7.2 fL (7.6-11.3); Monocytes % 7.9 % (3.3-12.3); Neutrophils % 58.7 % (41.7-73.7); Platelets 327 thou/uL (152-406); RBC Red Blood Cell Count 2.48 M/uL (4.33-5.43); Red Cell Distribution Width 14.8 % (12.1-15.2)
[2024-08-10 06:14] LABS: Albumin 2.4 g/dL (3.4-5.0); Anion Gap 10.8 mEq/L (5.0-15.0); Phosphorus 4.1 mg/dL (2.5-4.9); Potassium 3.8 mEq/L (3.5-5.1)
--- NOTE | 2024-08-10 10:52 | PN ---
Date of Progress Note: 08/10/2024 Subjective: The patient was admitted to the rehab after valvular repair, aortic valve. The patient had end-stage renal disease. The patient has been over volume. Physical Examination: Vital Signs: When I saw the patient, blood pressure 121/55, pulse of 78. Chest: Crackles bilateral. Heart: S1, S2. Systolic murmur. Abdomen: Soft, nontender. Extremities: Trace edema. Genitourinary: Bella in place. Neurologic: Alert. No focality. Laboratory Data: Hemoglobin 7.4. Sodium 134, potassium 3.8, bicarb 27, BUN 26, creatinine 3.3. Campbell cium 7.6. Current Medications: The patient is on include aspirin, midodrine, Flomax, atorvastatin, metoprolol, Renvela, Lasix 40 b.i.d. Assessment And Plan: 1. End-stage renal disease, over volume. I am going to do sequential dialysis today to establish bet ter volume control for the patient and we will follow up. 2. Hypertension. Continue to utilize blood pressure for more ultrafiltration. 3. Anemia of chronic kidney disease. We will resume Retacrit. 4. Secondary hyperparathyroidism. Continue Renvela. EXNIA Voice ID: [id number] Report ID: [id number]
[2024-08-10] MEDS: ALBUMIN HUMAN 25% 100 ML IV ONE (15:00)
[2024-08-10] MEDS: EPOETIN ALFA 10,000 UNIT/ML VIAL IV SCH (16:45)
[2024-08-11 05:53] LABS: Absolute Basophils 0.1 K/uL (0-0.5); Absolute Eosinophils 1.1 K/uL (0-0.5); Absolute Lymphocytes (CBC) 1.2 K/uL (0.7-4.9); Absolute Monocytes 0.5 K/uL (0.1-1.3); Absolute Neutrophil 3.5 K/uL (1.8-8.0); Basophils % 0.9 % (0-1.3); Hematocrit 21.9 % (39.6-49.0); Hemoglobin 7.3 g/dL (13.6-17.9); Lymphocytes % 18.9 % (15.3-44.8); MCH 28.8 pg (27.0-35.0); MCHC 33.2 g/dL (32.0-36.0); MCV 86.6 fL (80-100); Monocytes % 8.2 % (3.3-12.3); Platelets 296 thou/uL (152-406); RBC Red Blood Cell Count 2.53 M/uL (4.33-5.43); Red Cell Distribution Width 14.7 % (12.1-15.2)
[2024-08-11 06:50] LABS: Albumin 2.5 g/dL (3.4-5.0); Ferritin 509.1 ng/mL (26-388); Phosphorus 4.1 mg/dL (2.5-4.9)
--- NOTE | 2024-08-11 13:01 | RAD REPORT ---
Procedure: Chest Single View HISTORY: Cough COMPARISON: August 08, 2024 FINDINGS: The right lung base has become more hazy. Mild additional interstitial lung opacities. Small left pleural effusion with basilar atelectasis. Heart is enlarged. Post surgical changes involve the chest. Central venous catheter in place. IMPRESSION: Right lung base has become more hazy which could indicate enlarging pleural effusion, atelectasis or infiltrate. Mild additional interstitial lung opacities may indicate mild interstitial pulmonary edema
[2024-08-11] MEDS: levoFLOXacin 500 MG TAB PO ONE (15:04)
[2024-08-12 08:20] LABS: Percent Reticulocyte Count 1.76 % (0.4-2.05); RBC Red Blood Cell Count 2.73 M/uL (4.33-5.43)
[2024-08-12 08:51] LABS: Ferritin 510.3 ng/mL (26-388)
[2024-08-12] MEDS: ACETAMINOPHEN 500 MG TAB PO PRN (09:42)
[2024-08-12] MEDS: METOPROLOL TAR 25 MG TAB PO ONE (10:56)
[2024-08-12 11:31] LABS: Anion Gap 12.5 mEq/L (5.0-15.0); Potassium 4.5 mEq/L (3.5-5.1)
[2024-08-12 12:28] LABS: Absolute Basophils 0.1 K/uL (0-0.5); Absolute Eosinophils 1.1 K/uL (0-0.5); Absolute Lymphocytes (CBC) 0.9 K/uL (0.7-4.9); Absolute Monocytes 0.7 K/uL (0.1-1.3); Absolute Neutrophil 5.6 K/uL (1.8-8.0); Basophils % 0.9 % (0-1.3); Eosinophils % 13.6 % (0-4.4); Hematocrit 23.8 % (39.6-49.0); Hemoglobin 8.1 g/dL (13.6-17.9); Lymphocytes % 10.3 % (15.3-44.8); MCH 29.2 pg (27.0-35.0); MCHC 34.2 g/dL (32.0-36.0); MCV 85.3 fL (80-100); MPV 6.9 fL (7.6-11.3); Monocytes % 8.2 % (3.3-12.3); Platelets 281 thou/uL (152-406); RBC Red Blood Cell Count 2.78 M/uL (4.33-5.43); Red Cell Distribution Width 14.6 % (12.1-15.2)
[2024-08-12] MEDS: METOPROLOL TAR 25 MG TAB PO SCH (17:15)
--- NOTE | 2024-08-12 23:18 | PN ---
Date of Progress Note: 08/12/2024 Chief Complaint: End-stage renal disease. Subjective: The patient is undergoing rehab. He is dialysis dependent. He has fluid overload. He received dialysis on Monday and Monday. Leg edema has improved. The patient is on midodrine for b lood pressure support. He has intradialytic hypotension and chronic hypotension. He underwent CABG, ascending aortic aneurysm repair at [facility]. Today he has palpitation and worsened with atrial fibrill ation with rapid ventricular response with chronic atrial fibrillation, history of hemorrhagic stroke . He is on beta-chaim and beta-chaim was increased. Heart rate improved. The patient is stable . The patient denies complaints. Physical Examination: Lungs: Clear to auscultation bilaterally. Heart: S1 and S2. Abdomen: Soft. Extremities: Minimal edema in both ankles. Impression And Plan: 1. End-stage renal disease. Next dialysis tomorrow. 2. Fluid overload associated with leg edema. Continue low-sodium diet and p.o. fluid restriction. A dvance ultrafiltration with dialysis as tolerated. 3. Intradialytic hypotension. Continue midodrine before dialysis. 4. Hypertension. Adjust blood pressure medication. Midodrine dose was reduced, and midodrine will b e used before dialysis. 5. Anemia, acute on chronic. Monitor hemoglobin level and adjust NATACHA as needed. SUNNY/TRUMANL Voice ID: [id number] Report ID: [id number]
--- NOTE | 2024-08-13 02:48 | PN ---
Subjective: The patient's family members were in room. He is doing very well with therapy, although somewhat fatigued and have hemodialysis set up for in the morning. He has chest x-ray, which was do ne today did suggest possibility of some mild increase in interstitial lung opacity and mild intersti tial pulmonary edema. Right lung base is more hazy, indicating some enlarging pleural effusion. The re is also some atelectasis or infiltrate considered. It is noted the patient did have two chest tub es placed and one was removed prior to his coming in after the heart valve replacement and multi-vess el issues being addressed. He also has fibrillation, but the Watchman procedure was not done at the time. The patient had the heart procedures done. He is otherwise in no new or acute distress. Objective: Mild myalgias and arthralgias. Mild shortness of breath. Mild chest discomforts. No si gnificant other complaints on the systems review. Physical Examination: Vital Signs: In terms of orthostatics did very well, while lying 121/64, pulse 68, while sitting 125 /68, pulse of 76, and while standing blood pressure 127/62, pulse 82; respiratory rate 16; temperatur e 97.3; oxygen saturation 100%. General: Mr. Cunha is again resting comfortably in bed. He is in no acute distress. HEENT: Normocephalic. Atraumatic. Sclerae anicteric and very well. Lungs: Otherwise, there is diffuse weakness and some mild decreased breath sounds bilaterally. Laboratory Studies: White blood cell count 8.4, hemoglobin 8.1, platelets 281. Sodium 131, potassiu m 4.5, chloride 99, carbon dioxide 24, BUN of 30, creatinine 4.27, glucose 92, calcium 8.3, iron tota l 23, total iron-binding capacity 193. Ferritin is 138. Ferritin saturation percentage or transferr in percent saturation . Vitamin B12 level is 658. Parathyroid hormone is 133.5. X-ray Imaging: Chest x-ray is as noted. Medications: 1. Tylenol 650 mg 6 hours as needed. 2. Eliquis 2.5 mg twice daily. 3. Aspirin 81 mg daily. 4. Lipitor 40 mg at bedtime. 5. Vitamin B12 . 6. Lasix 40 mg daily. 7. Heparin 6000 units every hemodialysis. 8. Lactulose 20 g daily. 9. Levofloxacin 250 mg daily. 10. Synthroid 0.025 mg daily. 11. Melatonin 3 mg at bedtime. 12. Lopressor 25 mg twice daily. 13. Protonix 40 mg daily. 14. Midodrine 5 mg . 15. Senokot-S two tablets twice daily. 16. Renvela 800 mg three times daily. 17. Flomax 0.4 mg daily. Progress Made With Physical, Occupational, And Speech Therapy: With physical therapy today, supine-t o-sit transfers done independently. Did have some issues of fibrillation. Had an EKG done earlier, showed fibrillation and the patient's heart rate has been around 80 to 100 and at times slower. His occupational therapy did have some again mild shortness of breath. Shallow breathing and at time did have elevated heart rate and the EKG did show fibrillation as noted. . With his speech, he was able to with 100% accuracy. Assessment: Mr. Cunha is an 79-year-old patient in the rehabilitation unit with recent aortic valve replacement, coronary angioplasty. He does have atrial fibrillation. He has end-stage renal disease , on hemodialysis. Recent chest tubes were placed and removed. In addition, he has a right posterio r cerebral artery stroke with left visual field deficits, dysarthria, dysphagia, congestive heart camilla lure, prostate hypertrophy, dyslipidemia, and constipation. Plan: We will continue with physical, occupational, and speech therapy 3.5 hours, 5 to 7 days. Cont inue with comorbid condition medications including hemodialysis. He does have the potential for incr easing pulmonary edema and Lasix continued. Also during dialysis and again continue DVT prophylaxis and stroke risk reduction. ROMI/BULMARO Voice ID: [id number] Report ID: [id number]
--- NOTE | 2024-08-13 09:00 | RAD REPORT ---
EXAMINATION: ONE VIEW CHEST XR CLINICAL INDICATION: Male, 79 years old.,sob TECHNIQUE: Frontal chest projection is submitted. Examination is limited by patient positioning and t echnique. COMPARISON: 08/11/2024 FINDINGS: Right IJ dialysis catheter in place, with catheter tip again projecting at the superior cavoatrial ju nction. Bilateral pleural-parenchymal opacities again seen, with some progression of opacification of the right base. Layering components of effusions, up to moderate on the right, stable. Central int erstitial prominence. No pneumothorax. The heart is normal in size. Mediastinal contours are unchanged with sequelae of CABG. IMPRESSION: Mildly progressive pleuroparenchymal basilar opacities particularly on the right, suggesting worsenin g pulmonary edema.
--- NOTE | 2024-08-13 11:01 | EKG ---
Test Date: 2024-08-12 Test Time: 10:04:23 Tobacco Checkout Clerk: DAMARIS MEASUREMENT RESULTS: Intervals: Rate: 84 LA: QRSD: 178 QT: 454 QTc: 536 [place]: P: LA: QRS: -60 T: 96 INTERPRETIVE STATEMENTS: Atrial fibrillation with a competing junctional pacemaker Left axis deviation Right bundle branch block T wave abnormality, consider lateral ischemia or digitalis effect Abnormal ECG Compared to ECG 09/07/2017 16:37:21 Right bundle-branch block now present T-wave abnormality now present Possible ischemia now present Sinus rhythm no longer present Electronically Signed On 08-13-24 10:57:13 CDT by Kalpesh Cat
--- NOTE | 2024-08-13 14:29 | PN ---
Date of Progress Note: 08/13/2024 Subjective: The patient was doing good. The patient was admitted to the hospital after heart surger y, valve replacement. The patient tolerated the procedure. The patient being dialyzed on a daily ba sis. Physical Examination: Vital Signs: When I saw the patient, blood pressure 153/76, pulse of 76. Chest: Clear to auscultation. Heart: S1, S2. Systolic murmur. Abdomen: Soft, nontender. Eliquis, Epogen, metoprolol, Lasix, Renvela. Assessment And Plan: 1. End-stage renal disease. We will continue the patient on dialysis. I am going to do extra treatm ent tomorrow to establish better volume control and we will follow up the patient. 2. Hypertension. We will utilize the blood pressure for more ultrafiltration. 3. Anemia of chronic kidney disease with iron-deficiency anemia. Continue NATACHA. Start the patient on iron and we will follow up the patient. 4. Congestive heart failure with exacerbation. We will continue on a daily dialysis to establish bet ter volume control. XENIA Voice ID: [id number] Report ID: [id number]
[2024-08-13] MEDS: MIDODRINE HCL 5 MG TABLET PO ONE (14:59)
[2024-08-13] MEDS: SOD FERRIC GLUC COMPLX/SUCROSE 250 MG in NA CHLORIDE 0.9% 250 ML IV SCH (15:00)
[2024-08-13] MEDS: levoFLOXacin 250 MG TAB PO SCH (17:00)
--- NOTE | 2024-08-14 02:04 | PN ---
Date of Progress Note: 08/13/2024 Time Of Service: 1:40 p.m. Subjective: Mr. Cunha therapy. He is feeling good about the therapy so far. Still has s ignificant deficits. He does have end-stage renal disease and will have dialysis done today. Despit e that, he is ambulating while in the gym very well. Objective: No significant shortness of breath. Mild chest discomfort. Mild myalgias and arthralgia s. Physical Examination: Vital Signs: Blood pressure orthostatics were done and those were negative. 129/64, pulse 68 when l [place] and when standing 127/62, pulse 82. Respiratory rate 16. Temperature 97.8. Oxygen saturation 94%. General: He is again mobilizing well around the unit. HEENT: He is normocephalic, atraumatic. Sclerae anicteric. Oropharynx is moist. Still has some vi sual field neglect. Laboratory Studies: White blood cell count 8.4, hemoglobin 8.1, platelets 281. Sodium 131, potassiu m 4.5, creatinine 4.27. Progress Made With Physical, Occupational, And Speech Therapy: With physical therapy, hwrpul-ay-zvz transfers done independently. Ambulated 100 feet twice and 250 feet with standby assistance using a rolling walker. With occupational therapy, standby assistance with supine to edge of bed transfer. Able to perform bed to wheelchair transfer. Maintained the sternal precautions. With speech, used v isual scanning. Canceled double letters of medium font with 95% accuracy. Assessment: Mr. Cunha is an 79-year-old patient in the rehabilitation unit with right posterior cere bral artery stroke. He has left visual field deficits. He has aortic valve replacement due to steno sis, dyslipidemia, dysphagia, and prostate hypertrophy. Plan: Will continue with physical, occupational, and speech therapy 3.5 hours, 5 of 7 days. His com orbid condition medications are continued. He has hemodialysis scheduled Monday, , Monday continuing and he is told that after discharge he should follow up with Ophthalmology for prism lenses and loss in his visual field. ROMI/BULMARO Voice ID: [id number] Report ID: [id number]
--- NOTE | 2024-08-15 02:05 | PN ---
Date of Progress Note: 08/14/2024 Time Of Service: 2:50. Subjective: Mr. Cunha is resting comfortably in between therapy sessions. He has no new complaints. Still had the left visual field deficit from his right posterior cerebral artery stroke. He does h ave the median sternotomy wound. It shows good hemostasis and is healing well. No new complaints. Physical Examination: Vital Signs: Blood pressure orthostatics done today 129/64, pulse 68 lying, while sitting 125/68, pu lse of 76, and while standing 127/62, pulse of 82. He is doing well in terms of that and no symptoms . Otherwise, again the left visual field defect still present. No new findings otherwise. Laboratory Studies: No new laboratory studies. X-ray/imaging: No new x-rays or imaging. Medications: Have been reviewed and there is assistance in medical management with the Renal Service . In terms of hemodialysis, the patient with dialysis 3 times weekly, Monday, , Monday. Progress Made With Physical And Occupational Therapy: Today with therapy, was able to ambulate with a rolling walker 350 feet and 150 feet and 250 feet with standby assistance. He is able to go up and down 10 steps with bilateral handrails. Nej-xw-rcsyz transfers done independently. With occupation al therapy, standby assistance for bed mobility, perform sink oral hygiene and setup assistance. Wit h speech, he was 100% accurate in reading and answering questions, able to compensate for visual fiel d deficit and becoming much faster in doing so. Assessment And Plan: Mr. 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 He has end-stage althea al disease, on hemodialysis, coronary artery disease and aortic valve stenosis, status post replaceme nt. Still has decreased mobility, decreased physical functioning that is improving well, risk of str jean, and dyslipidemia. In addition on antibiotics, he has midodrine for pressure support and is doin g very well with that and has Flomax for prostate hypertrophy. Plan: We will continue with physical, occupational, and speech therapy 3.5 hours, 5 of 7 days. Cont inue with list of medications as noted. Continue with the dialysis schedule as noted. ROMI/BULMARO Voice ID: [id number] Report ID: [id number]
[2024-08-15] MEDS: ACETAMINOPHEN 325 MG TABLET PO PRN (04:30)
[2024-08-15 06:58] LABS: Absolute Eosinophils 0.9 K/uL (0-0.5); Absolute Lymphocytes (CBC) 0.9 K/uL (0.7-4.9); Absolute Monocytes 0.8 K/uL (0.1-1.3); Absolute Neutrophil 4.9 K/uL (1.8-8.0); Basophils % 0.5 % (0-1.3); Eosinophils % 12.4 % (0-4.4); Hematocrit 22.6 % (39.6-49.0); Hemoglobin 7.5 g/dL (13.6-17.9); Lymphocytes % 12.5 % (15.3-44.8); MCH 28.5 pg (27.0-35.0); MCHC 33.2 g/dL (32.0-36.0); MCV 85.7 fL (80-100); MPV 6.7 fL (7.6-11.3); Neutrophils % 64.6 % (41.7-73.7); Platelets 253 thou/uL (152-406); RBC Red Blood Cell Count 2.64 M/uL (4.33-5.43); Red Cell Distribution Width 14.8 % (12.1-15.2)
[2024-08-15 07:14] LABS: Albumin 2.5 g/dL (3.4-5.0); Albumin/Globulin Ratio 0.8 (1.1-1.8); Anion Gap 10.3 mEq/L (5.0-15.0); Bilirubin Total 0.6 mg/dL (0.2-1.0); Magnesium 1.9 mg/dL (1.6-2.4); Potassium 4.3 mEq/L (3.5-5.1); Prealbumin 8.1 mg/dL (20-40); Protein, Total 5.5 g/dL (6.4-8.2)
--- NOTE | 2024-08-15 08:42 | RAD REPORT ---
EXAMINATION: XR Foot Left 2 View CLINICAL INDICATION: Male, 79 years old. [facility] c/o pain r/o gout TECHNIQUE: 3 view radiographs of the left foot were obtained. COMPARISON: No prior exam. FINDINGS: No evidence of fracture or dislocation. Normal alignment. Up to moderate degenerative chaudhari es of the mid foot and first metatarsophalangeal articulation. No other focal bone lesion. Soft tissues are unremarkable. Small calcaneal spur. Enthesopathy at the Achilles tendon attachment. IMPRESSION: No acute osseous abnormalities. Chronic findings as above.
[2024-08-15] MEDS: TRAMADOL HCL 50 MG TAB PO PRN (10:07)
[2024-08-15] MEDS: MIDODRINE HCL 5 MG TABLET PO PRN (14:19)
[2024-08-15] MEDS: ALBUMIN HUMAN 25% 100 ML IV ONE (15:24)
[2024-08-15] MEDS: MIDODRINE HCL 5 MG TABLET PO ONE (16:02)
[2024-08-15] MEDS ORDERED: SEVELAMER CARBONATE 800 MG TABLET PO ONE (19:11)
[2024-08-15] MEDS ORDERED: levoFLOXacin 250 MG TAB ONE (19:15)
[2024-08-15] MEDS ORDERED: METOPROLOL TAR 25 MG TAB ONE (20:33)
--- NOTE | 2024-08-15 21:56 | PN ---
Date of Progress Note: 08/15/2024 Chief Complaint: End-stage renal disease, deconditioning, chronic hypotension, intradialytic hypoten satish, fluid overload, congestive heart failure. Recently, the patient underwent CABG and aortic aneu rysm repair. Review of Systems: Denies chest pain, palpitations. Physical Examination: Lungs: Clear to auscultation bilaterally. Heart: S1, S2. Abdomen: Soft. Extremities: Swelling in the left foot big toe. Impression And Plan: 1. End-stage renal disease. Dialysis will be done today and tomorrow. Continue daily treatment for volume control. The patient has peripheral edema. 2. Intradialytic hypotension. Continue midodrine. 3. Gout. The patient receives pain management. Uric acid is pending. Evaluate for gout flare. The patient may need colchicine for gout flare. EB/MODL Voice ID: [id number] Report ID: [id number]
[2024-08-15 22:14] VITALS: O2SAT 92
--- NOTE | 2024-08-16 02:00 | PN ---
Date of Progress Note: 08/15/2024 The patient's family was in the room. Subjective: He denies any fevers, chills, nausea, vomiting. Still has difficulty with the left-side d neglect and dexterity in the left hand from his right posterior cerebral artery stroke. Objective: No fevers, chills, nausea, vomiting. No myalgias, arthralgias. Today is his dialysis da y. Physical Examination: Vital Signs: Blood pressure is , pulse up to 115, respiratory rate 20, temperature 97.7, o xygen saturation 92%. General: Mr. Cunha again is resting comfortably. HEENT: He is normocephalic, atraumatic. Sclerae anicteric. Oropharynx pink and moist. Neck: Supple. Chest: Clear. Neurologic: He has left homonymous hemianopia and has left-sided neglect. Laboratory Studies: White blood cell count 7.6, hemoglobin 7.5, platelets are 253. His sodium 130, potassium 4.3, creatinine 3.95. Uric acid level 5.9. X-ray/imaging: A foot x-ray was done on the right. The patient was worried about a potential fractu re. The study showed no osseous abnormalities. Chronic findings, which were midfoot and first metat arsal articulation degeneration noted. Progress Made With Physical And Occupational Therapy: Today with physical therapy, supine to sit tra nsfers done independently, multiple hcv-vv-[id number] transfers done independently. Ambulated 250 feet tw ice, 150 feet twice, feet with standby assistance and with quad cane 75 feet as well, up a nd down 15 steps with bilateral handrails with standby assistance. With occupational therapy, also d oing very well. Supervision for bed mobility and supervision to standby assistance for wiping buttoc ks after bowel movement. With speech, he is doing very well. Paying attention to his left visual fi elds. He is compensating for the homonymous hemianopsia. Assessment: Mr. Cunha is an 79-year-old patient with a right posterior cerebral artery stroke, left- sided neglect, left hemiparesis that is improving well, has decreased mobility, decreased physical fu nctioning, dyslipidemia, stroke risk of course. He has end-stage renal disease, on hemodialysis. He is on antibiotics for prophylaxis and Flomax for prostate hypertrophy. Plan: Continue with physical, occupational, and speech therapy as noted and continue comorbid condit ion . His dialysis is continued on Monday, , Monday. LB/MODL Voice ID: [id number] Report ID: [id number]
--- NOTE | 2024-08-16 15:51 | PN ---
Date of Progress Note: 08/16/2024 Chief Complaint: End-stage renal disease, deconditioning, chronic hypotension, intradialytic hypoten satish, fluid overload, congestive heart failure, coronary artery disease, ischemic heart disease. The patient is on midodrine for blood pressure support and he recently underwent CABG and aortic aneurys m repair. Review of Systems: Denies chest pain, palpitation. Physical Examination: Lungs: Clear to auscultation bilaterally. Heart: S1, S2. Abdomen: Soft. Extremities: Swelling in the left foot is subsided. He denies pain. Impression And Plan: 1. End-stage renal disease. Ultrafiltration will be done today to control Volemia and provide manage ment for congestive heart failure with systolic and diastolic dysfunction. 2. Intradialytic hypotension. Continue midodrine. 3. Gout. The patient received pain medication, currently asymptomatic. Uric acid level was within n ormal limits. The patient may need colchicine for gout flare. Currently, the patient is asymptomati c. SUNNY/BULMARO Voice ID: [id number] Report ID: [id number]
--- NOTE | 2024-08-16 17:16 | P.RH.PN ---
Estimated Length of Stay: 13 Expected Discharge Date: 08/17/24 Discharge Disposition Plan: Home Family Support: Yes Group Home Goal: Mobility, Transfers, Self Care Vital Signs: Last Vital Signs Temp 97.8 F 08/16/24 08:00 Pulse 74 08/16/24 09:00 Resp 18 08/16/24 08:00 BP 112/60 08/16/24 09:00 Pulse Ox 93 08/16/24 08:00 Laboratory: Laboratory Last Values WBC 7.60 thou/uL (4.3-10.9) 08/15/24 06:33 RBC 2.64 M/uL (4.33-5.43) L 08/15/24 06:33 Hgb 7.5 g/dL (13.6-17.9) L 08/15/24 06:33 Hct 22.6 % (39.6-49.0) L 08/15/24 06:33 MCV 85.7 fL (80-100) 08/15/24 06:33 MCH 28.5 pg (27.0-35.0) 08/15/24 06:33 MCHC 33.2 g/dL (32.0-36.0) 08/15/24 06:33 RDW 14.8 % (12.1-15.2) 08/15/24 06:33 Plt Count 253 thou/uL (152-406) 08/15/24 06:33 MPV 6.7 fL (7.6-11.3) L 08/15/24 06:33 Neutrophils % 64.6 % (41.7-73.7) 08/15/24 06:33 Lymphocytes % 12.5 % (15.3-44.8) L 08/15/24 06:33 Monocytes % 10.0 % (3.3-12.3) 08/15/24 06:33 Eosinophils % 12.4 % (0-4.4) H 08/15/24 06:33 Basophils % 0.5 % (0-1.3) 08/15/24 06:33 Absolute Neutrophils 4.9 K/uL (1.8-8.0) 08/15/24 06:33 Segmented Neutrophils 61 % (40-80) 08/08/24 05:29 Band Neutrophils 1 % (0-1) 08/08/24 05:29 Absolute Lymphocytes 0.9 K/uL (0.7-4.9) 08/15/24 06:33 Lymphocytes 8 % (15-42) L 08/08/24 05:29 Monocytes 15 % (0-10) H 08/08/24 05:29 Absolute Monocytes 0.8 K/uL (0.1-1.3) 08/15/24 06:33 Eosinophils 12 % (0-3) H 08/08/24 05:29 Absolute Eosinophils 0.9 K/uL (0-0.5) H 08/15/24 06:33 Basophils 2 % (0-1) H 08/08/24 05:29 Absolute Basophils 0.0 K/uL (0-0.5) 08/15/24 06:33 Atypical Lymphocytes 1 % 08/08/24 05:29 Platelet Estimate Adeq 08/08/24 05:29 Schistocytes 1+ 08/08/24 05:29 Morphology Comment Noted (NOT SEEN) 08/08/24 05:29 Absolute Retic 0.05 M/uL (0.02-0.11) 08/12/24 07:48 Percent Retic 1.76 % (0.4-2.05) 08/12/24 07:48 Sodium 130 mEq/L (136-145) L 08/15/24 06:33 Potassium 4.3 mEq/L (3.5-5.1) 08/15/24 06:33 Chloride 98 mEq/L (98-107) 08/15/24 06:33 Carbon Dioxide 26 mEq/L (21-32) 08/15/24 06:33 Anion Gap 10.3 mEq/L (5.0-15.0) 08/15/24 06:33 BUN 25 mg/dL (7-18) H 08/15/24 06:33 Creatinine 3.95 mg/dL (0.70-1.30) H 08/15/24 06:33 Est GFR (CKD-EPI) 15 ml/min (=/>90) L 08/15/24 06:33 Glucose 92 mg/dL (74-106) 08/15/24 06:33 Uric Acid 5.9 mg/dL (3.5-7.2) 08/15/24 06:33 Calcium 8.1 mg/dL (8.5-10.1) L 08/15/24 06:33 Phosphorus 4.1 mg/dL (2.5-4.9) 08/11/24 05:21 Magnesium 1.9 mg/dL (1.6-2.4) 08/15/24 06:33 Iron 23.0 ug/dL (65-175) L 08/12/24 07:48 TIBC 193 ug/dL (250-460) L 08/12/24 07:48 Transferrin 138 mg/dL (200-360) L 08/12/24 07:48 Transferrin % Sat 11.9 % (20.0-50.0) L 08/12/24 07:48 Ferritin 510.3 ng/mL (26-388) H 08/12/24 07:48 Total Bilirubin 0.6 mg/dL (0.2-1.0) 08/15/24 06:33 AST 14 U/L (15-37) L 08/15/24 06:33 ALT 20 U/L (16-61) 08/15/24 06:33 Alkaline Phosphatase 51 U/L (45-117) 08/15/24 06:33 Serum Total Protein 5.5 g/dL (6.4-8.2) L 08/15/24 06:33 Albumin 2.5 g/dL (3.4-5.0) L 08/15/24 06:33 Globulin 3.0 g/dL (2.3-3.5) 08/15/24 06:33 Albumin/Globulin Ratio 0.8 (1.1-1.8) L 08/15/24 06:33 Prealbumin 8.1 mg/dL (20-40) L 08/15/24 06:33 Vitamin B12 658 pg/mL (193-986) 08/12/24 07:48 PTH Intact 133.5 pg/mL (18.4-80.1) H 08/12/24 07:48 Urine Color Light-yellow (Yellow) 08/07/24 20:40 Urine Clarity Turbid (Clear) H 08/07/24 20:40 Urine pH 6.5 (5.0-7.0) 08/07/24 20:40 Ur Specific Mcroberts 1.006 (1.005-1.030) 08/07/24 20:40 Glucose (UA)(Auto) Negative (Negative) 08/07/24 20:40 Urine Ketones Negative (Negative) 08/07/24 20:40 Urine Blood Negative (Negative) 08/07/24 20:40 Urine Nitrite Negative (Negative) 08/07/24 20:40 Urine Bilirubin Negative (Negative) 08/07/24 20:40 Urine Urobilinogen Normal (Normal) 08/07/24 20:40 Ur Leukocyte Esterase 500 Patricia/uL (Negative) H 08/07/24 20:40 Urine RBC None seen /HPF (None Seen) 08/07/24 20:40 Urine WBC 5-10 /HPF (<5) 08/07/24 20:40 Ur Squamous Epith Cells None seen /HPF (None Seen) 08/07/24 20:40 U Non-Squamous Epi Cells <5 /HPF (None Seen) 08/07/24 20:40 Ur Renal Epithelial Cell <5 /HPF (None Seen) 08/07/24 20:40 Urine Bacteria <20 /HPF (<20) 08/07/24 20:40 Urine Mucus Slight /HPF (None Seen) 08/07/24 20:40 Urine Culture Reflexed Not needed 08/07/24 20:40 Urine Total Protein Trace (Negative) H 08/07/24 20:40 Hep Bs Antigen Nonreactive (Nonreactive) 08/09/24 12:31 Hep B Surface Ag Comm Report 08/09/24 12:31 Hep Bs Antibody Reactive (Nonreactive) H 08/09/24 12:31 Hep Bs Antibody, Quant 589.15 mIU/mL (<8.0) 08/09/24 12:31 Weight: 215 lb 8 oz Wound Present: No Closed Surgical Incision Present: Yes Physician Update: His [facility] cognitive assessment test is 2830. The speech pathologist noted he has much improved left visual field scanning addressing his left neglect due to a right posterior cerebral artery stroke. His anxiety while off of oxygen has resolved. He is ambulating over 250 feet with a rolling walker without oxygenor shortness of breath.he is going up and down 15 stairs with standby assistance. He is independent with oral hygiene, dressing upper and lower body along with donning and doffing his footwear. He is independent with activities of daily living. His labs have been reviewed and are consistent with endstage renal disease. He has hemodialysis on Monday, and Monday. He is followed by the renal service. Comment: open heart surg site clean and dry and sealed. scabbed over dry area on rt lat chest wall. Summary: Patient's care plan and lobsterman goals have been reviewed and revised as necessary. Please see the Rehabilitation Signature page for all necessary signatures.
[2024-08-16] MEDS: ALBUMIN HUMAN 25% 100 ML IV ONE (18:00)
[2024-08-16] MEDS: SOD FERRIC GLUC COMPLX/SUCROSE 250 MG in NA CHLORIDE 0.9% 250 ML IV SCH (18:25)
[2024-08-16] MEDS: NEPRO SHAKE 237 ML CAN PO SCH (20:00)
[2024-08-17] MEDS: PANTOPRAZOLE 40MG TABLET PO SCH (08:30)
[2024-08-17] MEDS: MULTIVITAMINS,THERAPEUT 1 TAB PO SCH (08:30)
[2024-08-18 06:08] LABS: Absolute Basophils 0.1 K/uL (0-0.5); Absolute Eosinophils 1.3 K/uL (0-0.5); Absolute Lymphocytes (CBC) 1.2 K/uL (0.7-4.9); Absolute Monocytes 0.6 K/uL (0.1-1.3); Absolute Neutrophil 3.3 K/uL (1.8-8.0); Basophils % 0.9 % (0-1.3); Eosinophils % 19.6 % (0-4.4); Hematocrit 22.4 % (39.6-49.0); Hemoglobin 7.7 g/dL (13.6-17.9); Lymphocytes % 18.9 % (15.3-44.8); MCH 29.2 pg (27.0-35.0); MCHC 34.6 g/dL (32.0-36.0); MCV 84.6 fL (80-100); MPV 6.9 fL (7.6-11.3); Neutrophils % 50.6 % (41.7-73.7); Nucleated Red Blood Cells % 0.1 % (0-0); Platelets 204 thou/uL (152-406); RBC Red Blood Cell Count 2.64 M/uL (4.33-5.43); Red Cell Distribution Width 14.8 % (12.1-15.2)
[2024-08-18 06:52] VITALS: BP 115/58; TEMP 97.9
[2024-08-18 10:11] LABS: Differential Total Cells Count 100; Lymphocytes 18 % (15-42); Monocytes 7 % (0-10); Segmented Neutrophils 60 % (40-80)
[2024-08-18 10:12] LABS: Blood Morphology Comment NOTED (NOT SEEN); Eosinophils 15 % (0-3); Platelet Estimate ADEQ
== END 2024-08-18 11:00 | disposition home health service (06) | DRG 56 ==
LOC: 5TH 18:40
PROVIDERS: ADMIT Psychiatry & Neurology Neurology with Special Qualifications in Child Neurology; ATTEND Psychiatry & Neurology Neurology with Special Qualifications in Child Neurology
PROC: 5A1D70Z Performance of Urinary Filtration, Intermittent, Less than 6 Hours Per Day (ICD-10-PCS; principal; 2024-08-09)
PROC: 5A1D70Z Performance of Urinary Filtration, Intermittent, Less than 6 Hours Per Day (ICD-10-PCS; 2024-08-10)
PROC: 5A1D70Z Performance of Urinary Filtration, Intermittent, Less than 6 Hours Per Day (ICD-10-PCS; 2024-08-13)
PROC: 5A1D70Z Performance of Urinary Filtration, Intermittent, Less than 6 Hours Per Day (ICD-10-PCS; 2024-08-15)
PROC: 5A1D70Z Performance of Urinary Filtration, Intermittent, Less than 6 Hours Per Day (ICD-10-PCS; 2024-08-16)
PROC: 5A1D70Z Performance of Urinary Filtration, Intermittent, Less than 6 Hours Per Day (ICD-10-PCS; 2024-08-17)
DX: I69.398 Other sequelae of cerebral infarction (principal); N18.6 End stage renal disease; I13.2 Hypertensive heart and chronic kidney disease with heart failure and with stage 5 chronic kidney disease, or end stage renal disease; N25.81 Secondary hyperparathyroidism of renal origin; H53.462 Homonymous bilateral field defects, left side; I50.9 Heart failure, unspecified; Z99.2 Dependence on renal dialysis; K21.9 Gastro-esophageal reflux disease without esophagitis; I25.10 Atherosclerotic heart disease of native coronary artery without angina pectoris; Z95.1 Presence of aortocoronary bypass graft; I69.391 Dysphagia following cerebral infarction; E03.9 Hypothyroidism, unspecified; N40.0 Benign prostatic hyperplasia without lower urinary tract symptoms; E78.5 Hyperlipidemia, unspecified; I95.1 Orthostatic hypotension; K59.00 Constipation, unspecified; E87.70 Fluid overload, unspecified; D63.1 Anemia in chronic kidney disease; I95.3 Hypotension of hemodialysis; Z95.2 Presence of prosthetic heart valve; I69.322 Dysarthria following cerebral infarction; M10.9 Gout, unspecified
CPT/HCPCS: 36415; 71045; 80048; 80053; 80069; 81001; 82040; 82607; 82728; 83540; 83735; 83970; 84134; 84466; 84550; 85025; 85044; 86706; 87077; 87086; 87088; 87186; 87340; 90935; 92523; 93005; 94010; 97110; 97116; 97129; 97163; 97165; 97530; 97542; J1644; J2916; J7050; P9047

== ENCOUNTER 2024-09-09 09:50 | Observation (INO) | payer OTHER ==
--- OUTSIDE RECORDS SUMMARY | 2024-09-09 10:16 | XMS REPORT | Continuity of Care Document ---
Author Name Unknown Address [address] [facility] [place] [address] Organization [facility] Address [address] [facility] [place] [address] Care Team Providers Care [place] Name Role Phone Lilliam Crowley Primary Care Physician Angela Sandoval Attending Clinician Unavailable Norman Saldana Attending Clinician UnavailBEBE Blanco Attending Clinician Unavailable MARYJANE ROBERTS Attending Clinician Unavailable MARYJANE ROBERTS Attending Clinician Unavailable Bebe Bridges Attending Clinician [phone] Laura Sherman MD Attending Clinician [place] Nicole MD Attending Clinician [phone] Doctor Unassigned, [place] Attending Clinician U LAURA Gan Attending Clinician Unavailable LAURA SHERMAN Attending Clinician Unavailable Kaitlynn Minaya Attending Clinician [phone] Joaquim STEPHEN, Norma Swartz Attending Clinician + [phone] MARIA C BAILEY Attending Clinician UnavailMARIA C Contreras Attending Clinician Unavailaaliyah Bailey MD, Maria C Fagan Attending Clinician [phone] SHERIN ASH Attending Clinician Unavail able Malou STEPHEN, Riana Heard Attending Clinician [phone] Dora STEPHEN, Sherin Rangel Attending Clinician [phone] KINGSTON NICOLE Attending Clinician Unavailable Pob, [facility] Attending Clinician UnavailKAITLYNN Gordon Attending Clinician Unava rosa Clark RN, Linda Mota Attending Clinician Unavaila [facility] Nurse, [facility] Surgery Attending Clinician Unavajorge Read RN, Sean Menchaca Attending Clinician Unavail able JIM MIKE Attending Clinician Unavailable JIM MIKE Attending Clinician Unavailable Quiana STEPHEN, Stephanie Herrmann Attending Clinician [phone] Tia STEPHEN, Bessy Landers Attending Clinician [phone] Ermias STEPHEN, Stephy Lombardi Attending Clinician + [phone] Jim Mike MD Attending Clinician [phone] Justin STEPHEN, Myron Menchaca Attending Clinician [phone] CASEY DE LA CRUZ Attending Clinician Unavailable CASEY DE LA CRUZ Attending Clinician Unavailable CASEY DE LA CRUZ Attending Clinician Unavailable Casey De La Cruz DO Attending Clinician [phone] ROHNA LEON Attending Clinician UnavailAliyah Tian Attending Clinician +[phone] Eddi Aguirre MD Attending Clinician [phone] Rohan Leon MD Attending Clinician [phone] Laura Sherman MD Admitting Clinician LAURA SHERMAN Admitting Clinician Unavailable BESSY WEBER Admitting Clinician UnavailBessy Baker MD Admitting Clinician KULWANT SHAWNBELGICA Admitting Clinician Unavailable EDDI AGUIRRE Admitting Clinician Unavailable Eddi Aguirre MD Admitting Clinician [phone] Payers Payer Name Policy Type Policy Number Effective Date Expirati on Date Source [employer] MED[employer]ARE ADVANTAGE HMO/POS [id number] 2024 00:00:00 Problems Condition Name Condition Details Condition Category Status Onset Date Resolution Date Last Treatment Date Treating Clinician Comments Source Acute hypoxic respirator y failure Acute hypoxic respirator y failure Disease Active 07-30 00:00: 00 [facility] Indwelling urinary catheter present Indwelling urinary catheter present Disease Active 07-30 00:00: 00 [facility] Other constipati on Other constipati on Disease Active 07-30 00:00: 00 [facility] Secondary hypertensi on Secondary hypertensi on Disease Active 07-30 00:00: 00 [facility] Coronary artery disease involving [place] coronary artery of [place] heart with angina pectoris Coronary artery disease involving [place] coronary artery of [place] heart with angina pectoris Disease Active 07-30 00:00: 00 [facility] Pleural effusion Pleural effusion Disease Active - 00:00: 00 [facility] Acquired hypothyroi dism Acquired hypothyroi dism Disease Active - 00:00: 00 [facility] Anemia of chronic disease Anemia of chronic disease Disease Active 07-30 00:00: 00 [facility] Aortic valve stenosis, etiology of cardiac valve disease unspecifie d Aortic valve stenosis, etiology of cardiac valve disease unspecifie d Disease Active 1-09 00:00: 00 [facility] Syncope and collapse Syncope and collapse Disease Active 2023-06 2-24 00:00: 00 [facility] VHD (valvular heart disease) VHD (valvular heart disease) Disease Active 2023-06 00:00: 00 [facility] BAILEY (dyspnea on exertion) BAILEY (dyspnea on exertion) Disease Active 2023-06 00:00: 00 [facility] Stage 4 chronic kidney disease Stage 4 chronic kidney disease Disease Active 2023-06 00:00: 00 [facility] Acute on chronic systolic and diastolic heart failure, 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 systolic and diastolic heart failure, NYHA class 3 Disease Active 2023-06 00:00: 00 [facility] Aneurysm of ascending aorta Aneurysm of ascending aorta Disease Active 2023-06 00:00: 00 [facility] Pulmonary hypertensi on Pulmonary hypertensi on Disease Active 2023-06 00:00: 00 [facility] SDH, SYNCOPE SDH, SYNCOPE Active 11/14/2015 [facility] Diagnosis Active 11-13 00:00: 00 2015-11-21 21:41:00 Ivonne Alvarez SYNCOPE SYNCOPE Active 11/14/2015 [facility] Diagnosis Active 11-13 00:00: 00 2015-11-15 01:47:00 Ivonne Alvarez GERD (gastroeso phageal reflux disease) GERD (gastroeso phageal reflux disease) Disease Active 10-31 00:00: 00 [facility] BPH (benign prostatic hyperplasi a) BPH (benign prostatic hyperplasi a) Disease Active 10-31 00:00: 00 [facility] Vitamin B12 deficiency Vitamin B12 deficiency Disease Active 11-20 00:00: 00 [facility] Essential hypertensi on, benign Essential hypertensi on, benign Disease Active 11-15 00:00: 00 [facility] NONTRAUMAT IC SUBDURAL HEMORRHAGE , UNSPEC NONTRAUMAT IC SUBDURAL HEMORRHAGE , UNSPEC Active [facility] Diagnosis Active 2015-11-21 21:41:00 Ivonne Alvarez Alcohol dependence (disorder) Alcohol dependence (disorder) Resolved Problem 12/06/2015 [facility], CIERRA Alvarez Problem Resolve d 2015-12-06 01:32:15 Ivonne Alvarez Hypertensi ve disorder, systemic arterial (disorder) Hypertensi ve disorder, systemic arterial (disorder) Resolved Problem 12/06/2015 [facility] CIERRA Alvarez Problem Resolve d 2015-12-06 01:32:15 Ivonne Alvarez Obesity (disorder) Obesity (disorder) Active Problem 12/06/2015 [facility] Problem Active 2015-12-06 01:32:15 Ivonne Alvarez Late effect of fracture of spine AND/OR trunk without spinal cord lesion Collapsed vertebra, not elsewhere classified , lumbar region, sequela of fracture Problem Active [facility] Essential hypertensi on Essential hypertensi on Problem Active [facility] Urinary frequency Urinary frequency Problem Active [facility] Inflammato ry and toxic neuropathy Neuropathy , peripheral Problem Active [facility] Polyp colon Colon polyp Problem Active [facility] [id number] Hyperkalem ia Problem Active [facility] [id number] Weight loss, unintentio nal Problem Active [facility] [id number] Abnormal liver enzymes Problem Active [facility] [id number] Lung nodule seen on imaging study Problem Active [facility] Benign prostatic hypertroph y with outflow obstructio n BPH (benign prostatic hypertroph y) with urinary obstructio n Problem Active [facility] [id number] Other fatigue Problem Active [facility] Hyponatrem ia Hyponatrem ia Problem Active [facility] Mixed anxiety and depressive disorder Anxiety and depression Problem Active [facility] Drug therapy Drug therapy Problem Active [facility] 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 Problem Active [facility] Internal hemorrhoid Internal hemorrhoid Problem Active [facility] [id number] Abnormal thyroid blood test Problem Active [facility] [id number] Bilateral sensorineu ral hearing loss Problem Active [facility] [id number] Acute unilateral obstructiv e uropathy Problem Active [facility] [id number] ESRD (end stage renal disease) Problem Active [facility] [id number] Low bicarbonat e Problem Active [facility] [id number] Elevated PSA Problem Active [facility] Eczema Eczema Problem Active [facility] Adult health examinatio n Blood tests for routine general physical examinatio n Problem Active [facility] Impotence of organic origin ED (erectile dysfunctio n) Problem Active [facility] Diverticul ar disease Diverticul ar disease Problem Active [facility] [id number] Anemia, unspecifie d type Problem Active [facility] [id number] Hearing loss of left ear, unspecifie d hearing loss type Problem Active [facility] [id number] Seborrheic keratosis Problem Active [facility] Diverticul ar disease of colon Diverticul osis large intestine w/o perforatio n or abscess w/o bleeding Problem Active [facility] Subdural intracrani al hemorrhage Nontraumat ic subacute subdural hemorrhage Problem Active [facility] Elevated brain natriureti c peptide (BNP) level Elevated brain natriureti c peptide (BNP) level Disease Resolve d 2023-06 00:00: 00 2024-07-30 00:00:00 2024-07-30 09:21:33 [facility] Allergies, Adverse Reactions, Alerts Allergy Name Allergy Type Status Severity Reaction(s) Onset Date Inactive Date Treating Clinician Comments Source ADHESIVE Drug Class Active Rash 07-27 00:00: 00 [facility] Adhesive Propensi ty to adverse reaction s Active Rash 07-27 00:00: 00 [facility] Cephalex in Propensi ty to adverse reaction s Active Rash 07-28 00:00: 00 [facility] CEPHALEX IN DRUG INGREDI Active Rash 07-28 00:00: 00 [facility] Diltiaze m Propensi ty to adverse reaction s Active Rash 09-11 00:00: 00 [facility] DILTIAZE M DRUG INGREDI Active Rash 09-11 00:00: 00 [facility] Social History Social Habit Start Date Stop Date Quantity Comments [facility] of [facility] Alcoholic beverage intake 2024-07-22 00:00:00 2024-07-22 00:00:00 Current drinker of alcohol (finding) [facility] History of Social function 2024-05-28 00:00:00 2024-05-28 00:00:00 [facility] Social History 2015-11-15 05:41:59 2015-11-15 05:41:59 [facility] Tobacco use and exposure 2012-07-19 00:00:00 2012-07-19 00:00:00 Smokeless tobacco non-user [facility] Alcohol Comment 2011-06-16 00:00:00 2011-06-16 00:00:00 daily [facility] Sex assigned at 1945 00:00:00 1945 00:00:00 [facility] Smoking Status Start Date Stop Date Source Never smoked tobacco [facility] Medications Ordered Medication Name Filled Medication Name Start Date Stop Date Current Medication? Ordering Clinician Indication Dosage Frequency Signature (SIG) Comments Components Source clopidogreL 75 mg tablet 08-08 00:00: 00 Yes [id number] 75mg Take 1 tablet by mouth in the morning. [facility] lactulose 10 gram/15 mL solution 08-08 00:00: 00 Yes [id number] 30mL Take 30 mL by mouth in the morning. [facility] melatonin (MELATIN) tablet 3 mg 08-07 08:45: 00 Yes 3mg 3 mg, Oral, QHS, First dose on Mon08/07/24 at 0245, Until Discontinu ed, Routine [facility] acetaminoph en 325 mg tablet 08-07 00:00: 00 Yes [id number] 650mg Take 2 tablets by mouth every 6 (six) hours as needed for Pain (scale 1-3). [facility] melatonin 3 mg tablet 08-07 00:00: 00 Yes [id number] 3mg Take 1 tablet by mouth at bedtime. [facility] metoprolol tartrate 25 mg tablet 08-07 00:00: 00 Yes [id number] 12.5mg Take 0.5 tablets by mouth in the morning and 0.5 tablets in the evening. [facility] midodrine 10 mg tablet 08-07 00:00: 00 Yes [id number] 10mg Take 1 tablet by mouth in the morning and 1 tablet at noon and 1 tablet in the evening. [facility] polyethylen e glycol 3350 17 gram powder 08-07 00:00: 00 Yes [id number] 17g Take 1 Packet by mouth in the morning and 1 Packet in the evening. [facility] sennosides- docusate sodium 8.6-50 mg per tablet 08-07 00:00: 00 Yes [id number] 1{tbl} Take 1 tablet by mouth in the morning and 1 tablet in the evening. [facility] NaCl 0.9% (NS) injection 10 mL 08-06 19:00: 00 08-06 19:11 :00 No 10mL 10 mL, Slow IV Push, DIALYSIS ONCE - [facility], 1 dose, On Mon08/06/24 at 1300, Routine [facility] heparin 1,000 unit/mL (10 mL) - dialysis catheter care 08-06 18:58: 46 08-08 00:01 :21 No 2000U PRN - SEE INSTRUCTIO NS, Starting on Mon08/06/24 at 1258, Until Mon08/07/24 at 1801, Routine, For Priming of Ports: After initial saline flush, prime each port with heparin according to the priming volume listed on each catheter port for catheter lock. [facility] NaCl 0.9% (NS) injection 10 mL 08-05 22:45: 00 08-05 22:45 :00 No 10mL 10 mL, Slow IV Push, DIALYSIS ONCE - [facility], 1 dose, On 08/05/24 at 1645, Routine [facility] heparin 1,000 unit/mL (10 mL) - dialysis catheter care 08-05 22:34: 28 08-08 00:01 :21 No 2000U PRN - SEE INSTRUCTIO NS, Starting on 08/05/24 at 1634, Until 08/07/24 at 1801, Routine, For Priming of Ports: After initial saline flush, prime each port with heparin according to the priming volume listed on each catheter port for catheter lock. [facility] barium sulfate-NO CHARGE- (VARIBAR NECTOR) 40 % (w/v) oral suspension 20 mL 08-05 22:15: 00 08-05 22:15 :00 No [id number] 20mL 20 mL, Oral, ONCE, 1 dose, On Mon08/05/24 at 1615, [facility] f[facility]sem[facility] (LASIX) tablet 40 mg 08-04 15:00: 00 08-08 00:01 :21 No 40mg 40 mg, Oral, BID, First dose on 08/04/24 at 0900, Until Discontinu ed, Routine [facility] NaCl 0.9% (NS) injection 10 mL 08-03 20:45: 00 08-03 23:44 :00 No 10mL 10 mL, Slow IV Push, DIALYSIS ONCE - [facility], 1 dose, On 08/03/24 at 1445, Routine [facility] heparin 1,000 unit/mL (10 mL) - dialysis catheter care 08-03 20:32: 20 08-08 00:01 :21 No 2000U PRN - SEE INSTRUCTIO NS, Starting on 08/03/24 at 1432, Until 08/07/24 at 1801, Routine, For Priming of Ports: After initial saline flush, prime each port with heparin according to the priming volume listed on each catheter port for catheter lock. [facility] NaCl 0.9% (NS) injection 10 mL 08-01 21:00: 00 08-02 00:35 :00 No 10mL 10 mL, Slow IV Push, DIALYSIS ONCE - [facility], 1 dose, On Mon08/01/24 at 1500, Routine [facility] heparin 1,000 unit/mL (10 mL) - dialysis catheter care 08-01 20:56: 10 08-08 00:01 :21 No 2000U PRN - SEE INSTRUCTIO NS, Starting on Mon08/01/24 at 1456, Until Mon08/07/24 at 1801, Routine, For Priming of Ports: After initial saline flush, prime each port with heparin according to the priming volume listed on each catheter port for catheter lock. [facility] pantoprazol e (PROTONIX) EC tablet 40 mg 07-31 15:00: 00 08-08 00:01 :21 No 40mg 40 mg, Oral, DAILY, First dose on Mon07/31/24 at 0900, Until Discontinu ed, Routine [facility] glycerin/mi neral oil (AGLO ENEMA) (COMPOUNDED ) Enem 225 mL 07-30 23:39: 53 08-08 00:01 :21 No 225mL 225 mL, Rectal, PRN, Starting on Mon07/30/24 at 1739, Until Mon08/07/24 at 1801, Routine, Constipati on, Constipati on unresolved by oral medication s [facility] vancomycin (VANCOCIN/X ELLIA) 1,000 mg in 200 mL sterile water IV Piggyback 07-30 23:00: 00 07-31 01:33 :00 No 1000mg 1,000 mg, IV Piggyback, ONCE, 1 dose, On Mon07/30/24 at 1700, Administer over 60 Minutes, 200 mL, Reason for Anti-Infec tive: Documented Infection, Documented Infection Site: Blood, Duration of Therapy: 14 days [facility] NaCl 0.9% (NS) injection 10 mL 07-30 18:45: 00 07-30 23:32 :00 No 10mL 10 mL, Slow IV Push, DIALYSIS ONCE - [facility], 1 dose, On Mon07/30/24 at 1245, Routine [facility] heparin 1,000 unit/mL injection 2,000 Units 07-30 18:30: 13 08-08 00:01 :21 No 2000U PRN - SEE INSTRUCTIO NS, Starting on Mon07/30/24 at 1230, Until Mon08/07/24 at 1801, Routine, For Priming of Ports: After initial saline flush, prime each port with heparin according to the priming volume listed on each catheter port for catheter lock. [facility] lactulose (CEPHULAC) solution 30 mL 07-30 15:30: 00 Yes 30mL 30 mL, Oral, DAILY, First dose on Mon07/30/24 at 0930, Until Discontinu ed, Routine [facility] midodrine (PROAMATINE ) tablet 5 mg 07-30 15:03: 18 07-30 21:05 :00 No 5mg 5 mg, Oral, ONCE PRN, 1 dose, Starting on Mon07/30/24 at 0903, Until Mon07/30/24 at 1505, Routine, Hypotensio n during intermitte nt dialysis [facility] tamsulosin (FLOMAX) capsule 0.4 mg 07-30 15:00: 00 08-08 00:01 :21 No .4mg 0.4 mg, Oral, DAILY, First dose on Mon07/30/24 at 0900, Until Discontinu ed, Routine [facility] bisacodyL (DULCOLAX) suppository 10 mg 07-30 14:18: 46 08-08 00:01 :21 No 10mg 10 mg, Rectal, QDAILYPRN, Starting on Mon07/30/24 at 0818, Until Mon08/07/24 at 1801, Routine, Constipati on, For bowel movent [facility] polyethylen e glycol 3350 powder 17 g 07-30 14:00: 00 Yes 17g 17 g, Oral, BID, First dose on Mon07/30/24 at 0800, Until Discontinu ed, Routine [facility] levothyroxi ne (SYNTHROID) tablet 25 mcg 07-30 12:00: 00 08-08 00:01 :21 No 25ug 25 mcg, Oral, QAM-0600, First dose on Mon07/30/24 at 0600, Until Discontinu ed, Routine [facility] levothyroxi ne (SYNTHROID) injection 19 mcg 07-29 12:00: 00 07-30 11:05 :35 No 18.75ug 19 mcg (rounded from 18.75 mcg), Intravenou s, QAM-06, First dose on Mon07/29/24 at 0600, Until Discontinu ed, Indication : Patient NPO >= 5 days [facility] lactated ringers IV infusion 250 mL 07-29 05:45: 00 07-29 06:00 :00 No 250mL at 999 mL/hr, 250 mL, Intravenou s, ONCE, 1 dose, On Mon07/28/24 at 2345, Routine [facility] NORepinephr ine (LEVOPHED) 4 mg/250 mL in 0.9% NaCl infusion 07-29 04:43: 31 07-30 04:42 :31 No .05ug/k g/min 0.05-0.5 mcg/kg/min ?111 kg (20.8125-2 08.125 mL/hr, rounded to 20.81-208. 13 mL/hr), IV Infusion, TITRATE, MAP Goal > or = 65 mmHg, Starting on Mon07/28/24 at 2243, For 24 hours, Initiate titration at 0.05 mcg/kg/min . Increase by 0.01 mcg/kg/min every 30 seconds to 5 minutes as needed to reach and maintain goal blood pressure. Maximum dose = 0.5 mcg/kg/min . If goal not maintained at maximum allowed dose, contact prescriber . Administer only one peripheral intravenou s vasopresso r at a time. [facility] acetaminoph en (OFIRMEV) IV piggyback 1,000 mg 07-29 03:00: 00 07-29 02:38 :00 No 1000mg 1,000 mg, IV Piggyback, at 400 mL/hr Administer over 15 Minutes, ONCE, 1 dose, On Mon07/28/24 at 2100, DEL, Is the patient strict NPO and unable to tolerate oral medication s? Yes [facility] albumin (ALBUMINAR) 25 % injection 25 g 07-29 03:00: 00 07-29 03:45 :39 No 25g 25 g, IV Infusion, ONCE, 1 dose, On Mon07/28/24 at 2100, 100 mL, Indication : NON-APPROV ED INDICATION - PHARMACY WILL CALL ORDERING PROVIDER, Specific Indication : post CABG, Faculty Requesting Approval: GIO ATWOOD, manufacturing team member approving Restricted medication : GIO ATWOOD [facility] lactated ringers IV infusion 1,000 mL 07-29 01:15: 00 07-29 22:53 :45 No 1000mL at 50 mL/hr, 1,000 mL, IV Infusion, CONTINUOUS , Starting on Mon07/28/24 at 1915, Until Mon07/29/24 at 1653, Routine [facility] lactated ringers IV infusion 250 mL 07-29 01:00: 00 07-29 00:00 :00 No 250mL at 999 mL/hr, 250 mL, Intravenou s, ONCE, 1 dose, On Mon07/28/24 at 1900, Routine [facility] lidocaine 1% (XYLOCAINE) 10 mg/mL (1 %) injection 20 mL 07-28 16:45: 00 07-28 16:45 :00 No 20mL 20 mL, Infiltrati on, ONCE, 1 dose, On Mon07/28/24 at 1045, DEL [facility] vancomycin (VANCOCIN/X ELLIA) 1,500 mg in 300 mL sterile water IV Piggyback 07-28 15:15: 00 07-28 18:36 :00 No 1500mg 1,500 mg, IV Piggyback, ONCE, 1 dose, On Mon07/28/24 at 0915, Administer over 120 Minutes, 300 mL, Reason for Anti-Infec tive: Empiric Therapy for Suspected Infection, Empiric Therapy Site: Respirator y, Skin / Soft tissue, Urine, Duration of therapy: 72 hours [facility] metoprolol (LOPRESSOR) injection 2.5 mg 07-28 14:45: 00 07-28 16:33 :00 No 2.5mg 2.5 mg, Intravenou s, Q8H, 1 dose, First dose on Mon07/28/24 at 0845, DEL [facility] NaCl 0.9% (NS) IV infusion 1,000 mL 07-28 11:00: 00 07-29 20:13 :35 No 1000mL at 200 mL/hr, [employer], CONTINUOUS , Starting on Mon07/28/24 at 0500, Until Mon07/29/24 at 1413, Routine [facility] meropenem (MERREM) 500 mg in NaCl 0.9% (NS) 100 mL MINI-BAG 07-28 10:15: 00 07-29 21:22 :10 No 500mg 500 mg, IV Piggyback, Q24H ABX, 3 doses, First dose (after last modificati on) on Mon07/28/24 at 0415, Last dose on Mon07/30/24 at 0415, Administer over 30 Minutes, 100 mL, Restricted use approved by: [facility] FLOOR, Reason for Anti-Infec tive: Empiric Therapy for Suspected Infection, Empiric Therapy Site: Respirator y, Skin / Soft tissue, Urine, Duration of therapy: 72 hours [facility] metoprolol tartrate (LOPRESSOR) tablet 12.5 mg 07-28 02:00: 00 Yes 12.5mg 12.5 mg, Oral, BID, First dose (after last modificati on) on 07/27/24 at 2000, Until Discontinu ed, Routine [facility] magnesium sulfate in water 4 gram/50 mL (8 %) IV Piggyback 4 g 07-28 01:30: 00 07-28 03:49 :00 No 4g 4 g, IV Piggyback, at 25 mL/hr Administer over 120 Minutes, ONCE, 1 dose, On 07/27/24 at 1930, Routine [facility] potassium chloride in water (KCL) 20 mEq/100 mL IV infusion 20 mEq 07-28 00:45: 00 07-28 06:42 :00 No 20meq 20 mEq, IV Infusion, at 50 mL/hr Administer over 2 Hours, Q2H ES, 2 doses, First dose on 07/27/24 at 1845, Last dose on 07/27/24 at 2045, Routine [facility] vancomycin (VANCOCIN/X ELLIA) 1,250 mg in 250 mL sterile water IV Piggyback 07-27 22:15: 00 07-28 00:02 :00 No 1250mg 1,250 mg, IV Piggyback, ONCE, 1 dose, On 07/27/24 at 1615, Administer over 90 Minutes, 250 mL, Reason for Anti-Infec tive: Empiric Therapy for Suspected Infection, Empiric Therapy Site: Respirator y, Skin / Soft tissue, Urine, Duration of therapy: 72 hours [facility] perflutren protein-A microsphr (OPTISON) injection 3 mL 07-27 21:45: 00 07-27 21:45 :00 No [id number] 3mL 3 mL, IV Push, ONCE, 1 dose, On 07/27/24 at 1545, Routine [facility] heparin (porcine) injection 5,000 Units 07-27 20:00: 00 07-29 02:16 :26 No 5000U 5,000 Units, Subcutaneo us, Q8H, First dose (after last modificati on) on 07/27/24 at 1400, Until Discontinu ed, Routine [facility] pantoprazol e (PROTONIX) injection 40 mg 07-27 19:45: 00 07-30 16:45 :47 No 40mg 40 mg, Slow IV Push, Q24H, First dose on 07/27/24 at 1345, Until Discontinu ed [facility] furosemide (LASIX) injection 40 mg 07-27 18:15: 00 07-27 18:33 :00 No 40mg 40 mg, Slow IV Push, ONCE, 1 dose, On 07/27/24 at 1215, Routine [facility] [facility] albumin (ALBUMINAR) 25 % injection 25 g 07-27 17:30: 00 07-27 16:39 :00 No 25g 25 g, IV Infusion, ONCE, 1 dose, On 07/27/24 at 1130, 100 mL, Indication : NON-APPROV ED INDICATION - PHARMACY WILL CALL ORDERING PROVIDER, Specific Indication : post CABG, Faculty Requesting Approval: GIO ATWOOD, manufacturing team member approving Restricted medication : GIO ATWOOD [facility] lidocaine 1% (XYLOCAINE) 10 mg/mL (1 %) injection 30 mL 07-27 16:15: 00 07-27 16:15 :00 No 30mL 30 mL, Infiltrati on, ONCE, 1 dose, On 07/27/24 at 1015, DEL [facility] NORepinephr ine (LEVOPHED) 4 mg/250 mL in 0.9% NaCl infusion 07-27 15:47: 48 07-28 15:46 :48 No .05ug/k g/min 0.05-0.5 mcg/kg/min ?111 kg (20.8125-2 08.125 mL/hr, rounded to 20.81-208. 13 mL/hr), IV Infusion, TITRATE, MAP Goal > or = 65 mmHg, Starting on 07/27/24 at 0947, For 24 hours, Initiate titration at 0.05 mcg/kg/min . Increase by 0.01 mcg/kg/min every 30 seconds to 5 minutes as needed to reach and maintain goal blood pressure. Maximum dose = 0.5 mcg/kg/min . If goal not maintained at maximum allowed dose, contact prescriber . Administer only one peripheral intravenou s vasopresso r at a time. [facility] clopidogreL (PLAVIX) 75 mg tablet 75 mg 07-27 15:00: 00 Yes 75mg 75 mg, Oral, DAILY, First dose on 07/27/24 at 0900, Until Discontinu ed, Routine [facility] CRRT fluid dialysate (PRISMASOL 2K) K 2.0, CA 3.5, MG 1, HCO3 32, NA 140, CL 111.5, LACTATE 3, DEX 100, OSM 296 07-27 15:00: 00 07-29 20:13 :35 No 2800mL/ h 2,800 mL/hr, CRRT Circuit, CONTINUOUS , Starting on 07/27/24 at 0900, Until 07/29/24 at 1413, Routine [facility] NaCl 0.9% (NS) IV infusion 1,000 mL 07-27 15:00: 00 07-28 10:51 :41 No 1000mL at 150 mL/hr, CRRT Circuit, CONTINUOUS , Starting on 07/27/24 at 0900, Until 07/28/24 at 0451, Routine [facility] albumin (ALBUTEIN 5 %) 5 % injection 25 g 07-27 12:36: 00 07-27 12:41 :00 No 25g 25 g, IV Infusion, ONCE, 1 dose, On 07/27/24 at 0645, 500 mL, Indication : SEVERE SEPSIS AND SEPTIC SHOCK, Comments: First-line therapy: Crystalloi ds. Albumin in fluid resuscitat ion when patient requires substantia l amounts of crystalloi ds. [facility] meropenem (MERREM) 500 mg in NaCl 0.9% (NS) 100 mL MINI-BAG 07-27 11:30: 00 07-27 12:24 :00 No 500mg 500 mg, IV Piggyback, ONCE, 1 dose, On 07/27/24 at 0530, Administer over 60 Minutes, 100 mL, Restricted use approved by: [facility] FLOOR, Reason for Anti-Infec tive: Empiric Therapy for Suspected Infection, Empiric Therapy Site: Skin / Soft tissue, Respirator y, Duration of therapy: 72 hours [facility] Vancomycin 750 mg in NaCl 0.9% (NS) 250 mL VIAL-MATE 07-27 10:15: 00 07-27 21:18 :53 No 750mg 750 mg, IV Piggyback, Q12H ABX, 10 doses, First dose on 07/27/24 at 0415, Last dose on Mon07/31/24 at 1615, Administer over 60 Minutes, 250 mL, Reason for Anti-Infec tive: Empiric Therapy for Suspected Infection, Empiric Therapy Site: Respirator y, Skin / Soft tissue, Urine, Duration of therapy: 72 hours [facility] acetaminoph en (OFIRMEV) IV piggyback 1,000 mg 07-27 07:40: 00 07-27 08:59 :00 No 1000mg 1,000 mg, IV Piggyback, at 400 mL/hr Administer over 15 Minutes, ONCE, 1 dose, On 07/27/24 at 0145, DEL, Is the patient strict NPO and unable to tolerate oral medication s? Yes [facility] albumin (ALBUTEIN 5 %) 5 % injection 12.5 g 07-27 07:38: 00 07-27 10:39 :00 No 12.5g 12.5 g, IV Infusion, ONCE, 1 dose, On 07/27/24 at 0145, 250 mL, Indication : SEVERE SEPSIS AND SEPTIC SHOCK, Comments: First-line therapy: Crystalloi ds. Albumin in fluid resuscitat ion when patient requires substantia l amounts of crystalloi ds. [facility] calcium gluconate 2 g in NaCl 100 mL (ISO-OSM) RTU IV infusion 2 g 07-27 07:21: 00 07-27 08:07 :00 No 2g 2 g, IV Infusion, at 200 mL/hr Administer over 30 Minutes, ONCE, 1 dose, On 07/27/24 at 0130, Routine [facility] insulin regular human (HUMULIN R) injection 10 Units 07-27 07:15: 00 07-27 07:29 :00 No 10U 10 Units, IV Push, ONCE, 1 dose, On 07/27/24 at 0115, STAT, Indication for insulin: Hyperkalem ia- Please use the Insulin Protocol for Hyperkalem ia order set [facility] dextrose 50 % in water (D50W) injection 50 mL 07-27 07:15: 00 07-27 07:30 :00 No 50mL 50 mL, Slow IV Push, ONCE, 1 dose, On 07/27/24 at 0115, Routine [facility] furosemide (LASIX) injection 40 mg 07-27 05:45: 00 07-27 05:58 :00 No 40mg 40 mg, Slow IV Push, ONCE, 1 dose, On Mon07/26/24 at 2345, Routine [facility] metoprolol tartrate (LOPRESSOR) tablet 25 mg 07-26 14:00: 00 07-27 18:39 :25 No 25mg 25 mg, Oral, BID, First dose (after last modificati on) on Mon07/26/24 at 0800, Until Discontinu ed, Routine [facility] hydrOXYzine (ATARAX) tablet 10 mg 07-26 07:30: 00 07-26 07:05 :00 No 10mg 10 mg, Oral, ONCE, 1 dose, On Mon07/26/24 at 0130, Routine [facility] iopamidol (ISOVUE 370-500 mL) injection 75 mL 07-26 02:24: 00 07-26 02:24 :00 No [id number] 75mL 75 mL, Intravenou s, ONCE, 1 dose, On Annie 07/25/24 at 2045, Routine [facility] NaCl 0.9% (NS) injection 10 mL 07-25 21:00: 00 07-25 21:19 :00 No 10mL 10 mL, Slow IV Push, DIALYSIS ONCE - [facility], 1 dose, On Annie 07/25/24 at 1500, Routine [facility] heparin 1,000 unit/mL (10 mL) - dialysis catheter care 07-25 20:51: 43 08-08 00:01 :21 No 2000U PRN - SEE INSTRUCTIO NS, Starting on Annie 07/25/24 at 1451, Until 08/07/24 at 1801, Routine, For Priming of Ports: After initial saline flush, prime each port with heparin according to the priming volume listed on each catheter port for catheter lock. [facility] furosemide (LASIX) injection 80 mg 07-25 15:00: 00 07-26 14:36 :00 No 80mg 80 mg, Slow IV Push, DAILY, 2 doses, First dose on Mon07/25/24 at 0900, Last dose on Mon07/26/24 at 0900, Routine [facility] polyethylen e glycol 3350 powder 17 g 07-25 06:00: 00 07-25 06:00 :00 No 17g 17 g, Oral, ONCE, 1 dose, On Mon07/25/24 at 0000, Routine [facility] phenylephri ne (PHOEBE-SYNEPH RINE VISCOUS) 10 % ophthalmic drops 1 Drop 07-24 19:23: 00 07-24 21:07 :00 No 1[drp] 1 Drop, Both Eyes, ONCE, 1 dose, On Mon07/24/24 at 1330, DEL [facility] aspirin chewable tablet 81 mg 07-24 15:00: 00 08-08 00:01 :21 No 81mg 81 mg, Oral, DAILY, First dose on Mon07/24/24 at 0900, Until Discontinu ed, Routine [facility] ferrous sulfate [facility] 325 mg 07-24 15:00: 00 07-29 15:33 :01 No 325mg 325 mg, Oral, QMON// MON, First dose on Mon07/24/24 at 0900, Until Discontinu ed, Routine [facility] pantoprazol e (PROTONIX) EC tablet 40 mg 07-24 15:00: 00 07-27 18:38 :34 No 40mg 40 mg, Oral, DAILY, First dose on Mon07/24/24 at 0900, Until Discontinu ed, Routine [facility] metoprolol tartrate (LOPRESSOR) tablet 12.5 mg 07-24 13:00: 00 07-26 13:14 :51 No 12.5mg 12.5 mg, Oral, BID, First dose on Mon07/24/24 at 0700, Until Discontinu ed, Routine [facility] levothyroxi ne (SYNTHROID) tablet 25 mcg 07-24 12:00: 00 07-28 19:02 :18 No 25ug 25 mcg, Oral, QAM-0600, First dose on Mon07/24/24 at 0600, Until Discontinu ed, Routine [facility] atorvastati n (LIPITOR) tablet 40 mg 07-24 03:00: 00 08-08 00:01 :21 No 40mg 40 mg, Oral, QHS, First dose on Mon07/23/24 at 2100, Until Discontinu ed, Routine [facility] sennosides- docusate sodium (SENOKOT-S) 8.6-50 mg per tablet 1 tablet 07-24 02:00: 00 Yes 1{tbl} 1 tablet, Oral, BID, First dose on Mon07/23/24 at 2000, Until Discontinu ed, Routine [facility] heparin (porcine) injection 5,000 Units 07-24 02:00: 00 07-27 18:37 :41 No 5000U 5,000 Units, Subcutaneo us, BID, First dose on Mon07/23/24 at 2000, Until Discontinu ed, Routine [facility] Sliding Scale Insulin - Lispro (HumaLOG) 07-23 23:00: 00 07-29 22:56 :32 No Subcutaneo us, TID MEALS+HS, First dose on Mon07/23/24 at 1700, Until Discontinu ed, Routine [facility] acetaminoph en (TYLENOL) tablet 650 mg 07-23 19:50: 20 Yes 650mg 650 mg, Oral, Q6HPRN, Starting on Mon07/23/24 at 1350, Until Discontinu ed, Routine, Temp > 38 C [facility] acetaminoph en-codeine (TYLENOL #3) 300-30 mg tablet 1 tablet 07-23 19:50: 20 08-08 00:01 :21 No 1{tbl} 1 tablet, Oral, Q6HPRN, Starting on Mon07/23/24 at 1350, Until Mon08/07/24 at 1801, Routine, Pain (scale 4-6) [facility] ondansetron (ZOFRAN (PF)) injection 4 mg 07-23 19:50: 20 08-08 00:01 :21 No 4mg [facility] levothyroxi ne (SYNTHROID) tablet 25 mcg 07-23 12:00: 00 07-23 19:50 :30 No 25ug 25 mcg, Oral, QAM-0600, First dose on Mon07/23/24 at 0600, Until Discontinu ed, Routine [facility] NaCl 0.9% (NS) injection 10 mL 07-23 07:15: 00 07-23 10:00 :00 No 10mL 10 mL, Slow IV Push, DIALYSIS ONCE - [facility], 1 dose, On Mon07/23/24 at 0115, Routine [facility] heparin 1,000 unit/mL injection 2,000 Units 07-23 07:05: 09 07-23 19:50 :30 No 2000U PRN - SEE INSTRUCTIO NS, Starting on Mon07/23/24 at 0105, Until Mon07/23/24 at 1350, Routine, For Priming of Ports: After initial saline flush, prime each port with heparin according to the priming volume listed on each catheter port for catheter lock. [facility] atorvastati n (LIPITOR) tablet 40 mg 07-23 03:00: 00 07-23 19:50 :30 No 40mg 40 mg, Oral, QHS, First dose on Mon07/22/24 at 2100, Until Discontinu ed, Routine [facility] albumin (ALBUTEIN 5 %) 5 % injection 12.5 g 07-23 02:54: 00 07-23 03:07 :00 No 12.5g 12.5 g, IV Infusion, ONCE, 1 dose, On Mon07/22/24 at 2100, 250 mL, Indication : POST-OPERA TIVE VOLUME RESUSCITAT ION-CARDIA C SURGERY, Comments: May only be used if 3L or more of crystalloi d has been administer ed within a given 24 hour period without an adequate hemodynami c response. [facility] albumin (ALBUMINAR) 25 % injection 25 g 07-22 23:15: 00 07-23 02:44 :00 No 25g 25 g, IV Infusion, ONCE, 1 dose, On Mon07/22/24 at 1715, 100 mL, Indication : NEPHROTIC SYNDROME (ACUTE, SEVERE PERIPHERAL OR PULMONARY EDEMA), Comments: Short-term use of albumin in combinatio n with diuretic therapy when: serum albumin <2 g/dL and optimal diuretic therapy alone has failed, manufacturing team member approving Restricted medication : TAY HEATON [facility] methocarbam oL (ROBAXIN) tablet 500 mg 07-22 21:45: 00 Yes 500mg 500 mg, Oral, Q8HPRN, Starting on Mon07/22/24 at 1545, Until Discontinu ed, Routine, Muscle Spasms [facility] midodrine (PROAMATINE ) tablet 10 mg 07-22 16:15: 00 Yes 10mg 10 mg, Oral, TID, First dose on Mon07/22/24 at 1015, Until Discontinu ed, Routine [facility] potassium, sodium phosphates (PHOS-NAK) packet 2 Packet 07-22 12:30: 00 07-22 14:36 :00 No 2{packe t} 2 Packet, Oral, Once, 1 dose, On Mon07/22/24 at 0630, Routine [facility] melatonin (MELATIN) tablet 3 mg 07-22 03:00: 00 07-23 19:50 :30 No 3mg 3 mg, Oral, QHS, First dose on Mon07/21/24 at 2100, Until Discontinu ed, Routine [facility] QUEtiapine (SEROQUEL) tablet 25 mg 07-21 21:27: 50 07-27 18:39 :25 No 25mg 25 mg, Oral, QHS, First dose on 07/21/24 at 2100, Until Discontinu ed, Routine [facility] acetaminoph en (TYLENOL) tablet 650 mg 07-21 20:00: 00 07-23 19:50 :30 No 650mg 650 mg, Oral, Q8H, First dose on 07/21/24 at 1400, Until Discontinu ed, Routine [facility] methocarbam oL (ROBAXIN) tablet 500 mg 07-21 20:00: 00 07-22 21:36 :51 No 500mg 500 mg, Oral, Q8H, First dose on 07/21/24 at 1400, Until Discontinu ed, Routine [facility] CRRT fluid dialysate (PRISMASOL 4K) K 4.0, CA 2.5, MG 1.5, HCO3 32, NA 140, CL 113, LACTATE 3, DEX 100, OSM 300 07-21 17:45: 00 07-22 19:50 :52 No 2000mL/ h 2,000 mL/hr, CRRT Circuit, CONTINUOUS , Starting on 07/21/24 at 1145, Until 07/22/24 at 1350, Routine [facility] Sliding Scale Insulin - Lispro (HumaLOG) 07-20 23:00: 00 Yes Subcutaneo us, TID MEALS+HS, First dose on 07/20/24 at 1700, Until Discontinu ed, Routine [facility] albumin (ALBUTEIN 5 %) 5 % injection 12.5 g 07-20 22:30: 00 07-20 22:09 :00 No 12.5g 12.5 g, IV Infusion, ONCE, 1 dose, On 07/20/24 at 1630, 250 mL, Indication : POST-OPERA TIVE VOLUME RESUSCITAT ION-CARDIA C SURGERY, Comments: May only be used if 3L or more of crystalloi d has been administer ed within a given 24 hour period without an adequate hemodynami c response. [facility] albumin (ALBUTEIN 5 %) 5 % injection 12.5 g 07-20 19:00: 00 07-20 18:06 :00 No 12.5g 12.5 g, IV Infusion, ONCE, 1 dose, On 07/20/24 at 1300, 250 mL, Indication : POST-OPERA TIVE VOLUME RESUSCITAT ION-CARDIA C SURGERY, Comments: May only be used if 3L or more of crystalloi d has been administer ed within a given 24 hour period without an adequate hemodynami c response. [facility] sennosides (SENOKOT) tablet 8.6 mg 07-20 15:00: 00 07-23 19:50 :30 No 8.6mg 8.6 mg, Oral, DAILY, First dose on 07/20/24 at 0900, Until Discontinu ed, Routine [facility] docusate (COLACE) capsule 100 mg 07-20 15:00: 00 07-23 19:50 :30 No 100mg 100 mg, Oral, DAILY, First dose on 07/20/24 at 0900, Until Discontinu ed, Routine [facility] heparin (porcine) injection 5,000 Units 07-20 14:00: 00 07-23 19:50 :30 No 5000U 5,000 Units, Subcutaneo us, Q12H, First dose on 07/20/24 at 0800, Until Discontinu ed, Routine [facility] aspirin chewable tablet 81 mg 07-20 08:18: 52 07-23 19:50 :30 No 81mg 81 mg, Oral, DAILY, First dose on 07/20/24 at 0230, Until Discontinu ed, Routine [facility] fentaNYL PF (SUBLIMAZE) 10 mcg/mL in NaCl 0.9% (NS) RTU 07-20 06:28: 00 07-20 20:26 :43 No 0ug/h 0-200 mcg/hr (0-20 mL/hr), IV Infusion, CONTINUOUS , Starting on 07/20/24 at 0030 [facility] midazolam (PF) (VERSED) injection 1 mg 07-20 05:53: 50 07-20 20:26 :43 No 1mg 1 mg, IV Push, Q1HPRN, Starting on Mon07/19/24 at 2353, Until 07/20/24 at 1426, Routine, Agitation [facility] midazolam (VERSED) injection 0.5 mg 07-20 04:33: 25 07-20 05:54 :02 No .5mg 0.5 mg, IV Push, Q2HPRN, Starting on Mon07/19/24 at 2233, Until Mon07/19/24 at 2354, Routine, Agitation [facility] albumin (ALBUTEIN 5 %) 5 % injection 25 g 07-20 04:25: 00 07-20 04:41 :00 No 25g 25 g, IV Infusion, ONCE, 1 dose, On Mon07/19/24 at 2230, 500 mL, Indication : POST-OPERA TIVE VOLUME RESUSCITAT ION-CARDIA C SURGERY, Comments: May only be used if 3L or more of crystalloi d has been administer ed within a given 24 hour period without an adequate hemodynami c response. [facility] NaCl 0.9% (NS) IV infusion 1,000 mL 07-20 02:30: 00 07-22 19:50 :52 No 1000mL at 150 mL/hr, CRRT Circuit, CONTINUOUS , Starting on Mon07/19/24 at 2030, Until Mon07/22/24 at 1350, Routine [facility] CRRT fluid dialysate (PRISMASOL 2K) K 2.0, CA 3.5, MG 1, HCO3 32, NA 140, CL 111.5, LACTATE 3, DEX 100, OSM 296 07-20 02:30: 00 07-21 16:31 :41 No 2400mL/ h 2,400 mL/hr, CRRT Circuit, CONTINUOUS , Starting on Mon07/19/24 at 2030, Until Mon07/21/24 at 1031, Routine [facility] vasopressin (VASOSTRICT ) 20 Units/100 mL RTU vial infusion 07-20 02:00: 00 07-22 19:22 :50 No .04U/mi n 0.04 Units/min (12 mL/hr), IV Infusion, CONTINUOUS , Starting on Mon07/19/24 at 2000, DO NOT TITRATE [facility] desmopressi n (DDAVP) 28 mcg in NaCl 0.9% (NS) piggyback 07-20 01:45: 00 07-20 02:19 :00 No 28ug 28 mcg, IV Piggyback, ONCE, 1 dose, On Mon07/19/24 at 1945, 50 mL [facility] calcium gluconate 2 g in NaCl 100 mL (ISO-OSM) RTU IV infusion 2 g 07-20 01:22: 00 07-20 03:09 :00 No 2g 2 g, IV Infusion, at 600 mL/hr Administer over 10 Minutes, ONCE, 1 dose, On Mon07/19/24 at 1930, Routine [facility] vancomycin (VANCOCIN/X ELLIA) 1,500 mg in 300 mL sterile water IV Piggyback 07-20 00:55: 30 07-20 06:44 :00 No 15mg/kg 1,500 mg (rounded from 1,405.5 mg = 15 mg/kg ?93.7 kg), IV Piggyback, Q24H ABX, 1 dose, First dose (after last modificati on) on Mon07/19/24 at 1900, Administer over 120 Minutes, 300 mL, Reason for Anti-Infec tive: Surgical Prophylaxi s, Surgical Prophylaxi s: Cardiothor acic, Duration of therapy: within 24 hours of surgery [facility] DOBUTamine (DOBUTREX) 1000 mg in 250mL D5W infusion RTU 07-20 00:49: 00 07-23 19:50 :30 No 3ug/kg/ min 3 mcg/kg/min ?93.7 kg (4.2165 mL/hr, rounded to 4.22 mL/hr), IV Infusion, TITRATE, MAP Goal > or = 65 mmHg, Do not titrate without discussing with warehouse administrative assistant, Starting on Mon07/19/24 at 1849, Initiate infusion at 2.5 mcg/kg/min . Increase by 1 mcg/kg/min every 15 minutes as needed to reach and maintain goal blood pressure. Maximum dose = 20 mcg/kg/min . If goal not maintained at maximum allowed dose, contact prescriber . [facility] D5W 0.9% NaCl (NS) IV infusion 1,000 mL 07-20 00:30: 00 07-22 20:55 :37 No 1000mL at 50 mL/hr, 1,000 mL, IV Infusion, CONTINUOUS , Starting on Mon07/19/24 at 1830, Until Mon07/22/24 at 1455, DEL [facility] propofoL IV infusion 07-20 00:30: 00 07-20 20:26 :43 No 0ug/kg/ min 0-50 mcg/kg/min ?93.7 kg (0-28.11 mL/hr), IV Infusion, CONTINUOUS , Starting on Mon07/19/24 at 1830, For 1 day, Instructio ns in the first 2 hours in ICU, if patient is hypertensi ve (systolic blood pressure persists > 150 MAP > 100), the infusion rate may be increased to a maximum of 50 mcg/kg/min . Stop propofol when bladder or other central temperatur e is => 36 C. May use morphine at this time (may require order to be entered) if sedation is still needed. Do not continue propofol after central temperatur e is > 36 C unless requested by [address] Resident or Faculty or SICU Faculty. Tubing and unused portions of vials should be discarded after 12 hours. [facility] NORepinephr ine (LEVOPHED) 4 mg/250 mL in 0.9% NaCl infusion 07-20 00:23: 27 07-23 19:50 :30 No .05ug/k g/min 0.05-1.5 mcg/kg/min ?93.7 kg (17.5688-5 27.0625 mL/hr, rounded to 17.57-527. 06 mL/hr), IV Infusion, TITRATE, MAP Goal > or = 65 mmHg, Starting on Mon07/19/24 at 1823, Initiate titration at 0.01 mcg/kg/min . Increase by 0.01 mcg/kg/min every 30 seconds to 5 minutes as needed to reach and maintain goal blood pressure. Maximum dose = 1.5 mcg/kg/min . If goal not maintained at maximum allowed dose, contact prescriber . [facility] ondansetron (ZOFRAN (PF)) injection 4 mg 07-20 00:18: 52 Yes 4mg 4 mg, Slow IV Push, Q6HPRN, Starting on Mon07/19/24 at 1818, Until Discontinu ed, Administer over 2-5 Minutes, 2 mL [facility] NaCl 0.9% (NS) bolus infusion 250 mL 07-20 00:18: 52 Yes 250mL at 999 mL/hr, 250 mL, IV Infusion, PRN - SEE INSTRUCTIO NS, 3 doses, Starting on Mon07/19/24 at 1818, Until Discontinu ed, DEL [facility] dextrose 10% (D10W) bolus infusion 250 mL 07-20 00:18: 52 Yes 250mL 250 mL, IV Infusion, PRN - SEE INSTRUCTIO NS, Administer over 60 Minutes, Other, If blood glucose is < or = 70 mg/dL and patient is unable to swallow or has mental status changes, Starting on Mon07/19/24 at 1818, If blood glucose is < or = 70 mg/dL and patient is unable to swallow or has mental status changes (Give glucagon order if patient needs fluid restrictio n): IF IV access available: Dextrose 10%. 1. 125 mL (? bag) of D10W IV infusion - equivalent to 12.5 g dextrose 2. Blood glucose - draw blood glucose 15 minutes after D10W Administra tion. 3. If blood glucose is < 80 mg/dL, repeat. [facility] glucagon HCL injection 1 mg 07-20 00:18: 52 Yes 1mg 1 mg, Intramuscu lar, PRN, Starting on Mon07/19/24 at 1818, Until Discontinu ed, DEL, Low blood sugar, Blood Glucose < or = 70 mg/dL and patient is NPO, unable to swallow or has mental changes. [facility] dextrose 50 % in water (D50W) injection 25 mL 07-20 00:18: 52 Yes 25mL 25 mL, Slow IV Push, PRN, Starting on Mon07/19/24 at 1818, Until Discontinu ed, DEL, Blood Glucose < or = 70 mg/dL and patient is NPO, unable to swallow or has mental status changes. [facility] acetaminoph en-codeine (TYLENOL #3) 300-30 mg tablet 1 tablet 07-20 00:18: 52 07-23 19:50 :30 No 1{tbl} 1 tablet, Oral, Q6HPRN, Starting on Mon07/19/24 at 1818, Until Mon07/23/24 at 1350, Routine, Pain (scale 4-6) [facility] thrombin topical solution 07-19 13:46: 00 07-20 00:20 :22 No PRN, Starting on Mon07/19/24 at 0746, Until Mon07/19/24 at 1820, Routine, Intra-op [facility] ceFAZolin (ANCEF) 1 g in NaCl 0.9% (NS) 1,000 mL OR irrigation 07-19 13:45: 00 07-20 00:20 :22 No PRN, Starting on Mon07/19/24 at 0745, Intra-op [facility] heparin 1,000 unit/mL 2,500 Units, papaverine 60 mg in NaCl 0.9% (NS) 100 mL OR irrigation 07-19 13:45: 00 07-20 00:20 :22 No PRN, Starting on Mon07/19/24 at 0745, Intra-op [facility] heparin 1,000 unit/mL 30,000 Units in NaCl 0.9% (NS) 1,000 mL OR irrigation 07-19 13:45: 00 07-20 00:20 :22 No PRN, Starting on Mon07/19/24 at 0745, Intra-op [facility] metoprolol tartrate (LOPRESSOR) tablet 12.5 mg 2025-0 2-14 11:00: 00 07-19 12:16 :00 No 12.5mg 12.5 mg, Oral, ONCE NOW, 1 dose, On Mon07/19/24 at 0500, Routine, DSU Pre-op [facility] vitamin b complex-vit olivas c-folic acid (OLIVER-NEMESIO) 0.8 mg tablet 07-19 07:13: 13 Yes 1{tbl} Take 1 tablet by mouth in the morning. [facility] magnesium oxide 400 mg magnesium capsule 07-19 07:13: 13 08-07 00:00 :00 No 400mg Take 1 capsule by mouth in the morning. [facility] sulfamethox azole-trime thoprim (BACTRIM DS) 800-160 mg per tablet 07-12 00:00: 00 08-07 00:00 :00 No [id number] 1{tbl} Take 1 tablet by mouth in the morning and 1 tablet in the evening. [facility] ciprofloxac in HCl 500 mg tablet 07-03 00:00: 00 07-09 05:59 :00 Yes [id number] 500mg Take 1 tablet by mouth every 12 (twelve) hours for 5 days. [facility] metoprolol tartrate 50 mg tablet 07-02 09:10: 12 08-07 00:00 :00 No 50mg Take 1 tablet by mouth in the morning and 1 tablet in the evening. [facility] sacubitriL- valsartan 24-26 mg tablet 1-20 00:00: 00 08-07 00:00 :00 No [id number] .5{tbl} Take 0.5 tablets by mouth in the morning and 0.5 tablets in the evening. [facility] epoetin liana-epbx (RETACRIT) injection 9,000 Units 2023-06 20:30: 00 06-04 22:08 :00 No 9000U 9,000 Units, Slow IV Push, DIALYSIS ONCE - [facility] D[facility], 1 dose, On Mon06/04/24 at 1430, Routine [facility] NaCl 0.9% (NS) injection 10 mL 2023-06 20:30: 00 06-04 23:38 :00 No 10mL 10 mL, Slow IV Push, DIALYSIS ONCE - [facility] DSU, 1 dose, On Mon06/04/24 at 1430, Routine [facility] heparin 1,000 unit/mL (10 mL) - dialysis catheter care 2023-06 20:20: 10 06-05 01:07 :09 No 2000U PRN - SEE INSTRUCTIO NS, Starting on Mon06/04/24 at 1420, Until Mon06/04/24 at 1907, Routine, For Priming of Ports: After initial saline flush, prime each port with heparin according to the priming volume listed on each catheter port for catheter lock. [facility] hydrocortis one 1 % cream 2023-06 15:00: 00 06-05 01:07 :09 No Topical (Apply To Affected Areas), DAILY, First dose on Mon06/04/24 at 0900, Until Discontinu ed, Routine [facility] atorvastati n (LIPITOR) tablet 40 mg 2023-06 03:00: 00 Yes 40mg 40 mg, Oral, QHS, First dose on Mon06/03/24 at 2100, Until Discontinu ed, Routine [facility] cetirizine (ALLERGY RELIEF (CETIRIZINE )) tablet 10 mg 2023-06 03:50: 18 06-05 01:07 :09 No 10mg 10 mg, Oral, QHSPRN, Starting on Mon06/02/24 at 2150, Until Mon06/04/24 at 1907, Routine, Allergies [facility] sacubitriL- valsartan (ENTRESTO) 24-26 mg tablet 0.5 tablet 2023-06 02:00: 00 Yes .5{tbl} 0.5 tablet, Oral, BID, First dose on Mon06/02/24 at 2000, Until Discontinu ed, Routine [facility] aspirin 81 mg chewable tablet 2023-06 00:00: 00 Yes [id number] 81mg Take 1 tablet by mouth in the morning. [facility] sevelamer 800 mg tablet 2023-06 00:00: 00 Yes [id number] 800mg Take 1 tablet by mouth in the morning and 1 tablet at noon and 1 tablet in the evening. Take with meals. [facility] levothyroxi ne 25 mcg tablet 2023-06 00:00: 00 Yes [id number] 25ug Take 1 tablet by mouth every morning. [facility] atorvastati n 40 mg tablet 2023-06 00:00: 00 Yes [id number] 40mg Take 1 tablet by mouth at bedtime. [facility] tamsulosin 0.4 mg 24 hr capsule 2023-06 00:00: 00 Yes [id number] .4mg Take 1 capsule by mouth in the morning. [facility] furosemide 40 mg tablet 2023-06 00:00: 00 Yes [id number] 40mg Take 1 tablet by mouth every morning and evening. [facility] pantoprazol e 40 mg EC tablet 2023-06 00:00: 00 Yes [id number] 40mg Take 1 tablet by mouth in the morning. [facility] carvediloL 3.125 mg tablet 2023-06 00:00: 00 08-07 00:00 :00 No [id number] 3.125mg Take 1 tablet by mouth in the morning and 1 tablet in the evening. Take with meals. [facility] sacubitriL- valsartan 24-26 mg tablet 2023-06 00:00: 00 06-24 00:00 :00 No [id number] .5{tbl} Take 0.5 tablets by mouth in the morning and 0.5 tablets in the evening. [facility] epoetin liana-epbx (RETACRIT) injection 8,000 Units 2023-06 17:15: 00 06-01 19:18 :00 No 8000U 8,000 Units, Slow IV Push, DIALYSIS ONCE - VIDA DSU, 1 dose, On 06/01/24 at 1115, Routine [facility] mupirocin (BACTROBAN OINT) 2 % oinintment 2023-06 17:13: 35 06-05 01:07 :09 No [facility] heparin 1,000 unit/mL (10 mL) - dialysis catheter care 2023-06 17:13: 33 06-04 20:27 :11 No 2000U PRN - SEE INSTRUCTIO NS, Starting on 06/01/24 at 1113, Until Tu06/04/24 at 1427, Routine, For Priming of Ports: After initial saline flush, prime each port with heparin according to the priming volume listed on each catheter port for catheter lock. [facility] sodium zirconium cyclosilica te (LOKELMA) 10 gram packet 10 g 2023-06 00:00: 00 05-31 23:19 :00 No 10g 10 g, Oral, ONCE, 1 dose, On Mon05/31/24 at 1800, Routine [facility] carvediloL (COREG) tablet 3.125 mg 2023-06 14:00: 00 Yes 3.125mg 3.125 mg, Oral, BID MEALS, First dose on Mon05/31/24 at 0800, Until Discontinu ed, Routine [facility] sacubitriL- valsartan (ENTRESTO) 24-26 mg tablet 0.5 tablet 2023-06 14:00: 00 06-02 19:18 :26 No .5{tbl} 0.5 tablet, Oral, BID, First dose on Mon05/31/24 at 0800, Until Discontinu ed, Routine [facility] sulfur hexafluorid e microsphr (LUMASON) injection 5 mL 2023-06 14:00: 00 05-31 14:00 :00 No [id number] 5mL 5 mL, Intravenou s, ONCE, 1 dose, On Mon05/31/24 at 0800, Routine [facility] iop[facility] (ISOVUE 370-500 mL) injection 2023-06 21:01: 01 05-30 21:21 :26 No ONCE INTRA PROCEDURE, Starting on Annie 05/30/24 at 1501, Until Annie 05/30/24 at 1521, Routine, CV Intraproce dure [facility] heparin 1,000 unit/mL injection 2023-06 20:09: 52 05-30 21:21 :26 No ONCE INTRA PROCEDURE, Starting on Annie 05/30/24 at 1409, Until Annie 05/30/24 at 1521, Routine, CV Intraproce dure [facility] lidocaine 1% (XYLOCAINE) 10 mg/mL (1 %) injection 2023-06 20:09: 14 05-30 21:21 :26 No ONCE INTRA PROCEDURE, Starting on Annie 05/30/24 at 1409, Until Annie 05/30/24 at 1521, Routine, CV Intraproce dure [facility] fentanyl PF (SUBLIMAZE (PF)) injection 2023-06 20:09: 04 05-30 21:21 :26 No ONCE INTRA PROCEDURE, Starting on Annie 05/30/24 at 1409, Until Annie 05/30/24 at 1521, Routine, CV Intraproce dure [facility] midazolam (VERSED) injection 2023-06 20:08: 49 05-30 21:21 :26 No ONCE INTRA PROCEDURE, Starting on Annie 05/30/24 at 1408, Until Annie 05/30/24 at 1521, Routine, CV Intraproce dure [facility] NaCl 0.9% (NS) injection 5 mL 2023-06 14:45: 00 05-30 17:27 :00 No 5mL 5 mL, Slow IV Push, ONCE, 1 dose, On Annie 05/30/24 at 0845, Routine [facility] heparin 1,000 unit/mL (10 mL) - dialysis catheter care 2023-06 14:32: 39 06-04 20:27 :11 No 2000U PRN - SEE INSTRUCTIO NS, Starting on Annie 26/24 at 0832, Until Mon06/04/24 at 1427, Routine, For Priming of Ports: After initial saline flush, prime each port with heparin according to the priming volume listed on each catheter port for catheter lock. [facility] sevelamer (RENVELA) tablet 800 mg 2023-06 14:00: 00 Yes 800mg 800 mg, Oral, TID MEALS, First dose on Mon05/30/24 at 0800, Until Discontinu ed, Routine [facility] aspirin chewable tablet 81 mg 2023-06 15:00: 00 Yes 81mg 81 mg, Oral, DAILY, First dose on Mon05/29/24 at 0900, Until Discontinu ed, Routine [facility] sennosides (SENOKOT) tablet 8.6 mg 2023-06 15:00: 00 06-05 01:07 :09 No 8.6mg 8.6 mg, Oral, DAILY, First dose on Mon05/29/24 at 0900, Until Discontinu ed, Routine [facility] polyethylen e glycol 3350 powder 17 g 2023-06 15:00: 00 06-05 01:07 :09 No 17g 17 g, Oral, DAILY, First dose on Mon05/29/24 at 0900, Until Discontinu ed, Routine [facility] tamsulosin (FLOMAX) capsule 0.4 mg 2023-06 15:00: 00 06-05 01:07 :09 No .4mg 0.4 mg, Oral, DAILY, First dose on Mon05/29/24 at 0900, Until Discontinu ed, Routine [facility] levothyroxi ne (SYNTHROID) tablet 25 mcg 2023-06 12:00: 00 06-05 01:07 :09 No 25ug 25 mcg, Oral, QAM-0600, First dose on Mon05/29/24 at 0600, Until Discontinu ed, Routine [facility] heparin (porcine) injection 5,000 Units 2023-06 02:00: 06-05 01:07 :09 No 5000U 5,000 Units, Subcutaneo us, BID, First dose on Mon05/28/24 at 2000, Until Discontinu ed, Routine [facility] ondansetron (ZOFRAN (PF)) injection 4 mg 2023-06 23:11: 54 06-05 01:07 :09 No 4mg [facility] acetaminoph en (TYLENOL) tablet 650 mg 2023-06 23:11: 37 06-05 01:07 :09 No 650mg [facility] gentamicin injection 160 mg 2023-06 21:45: 00 05-22 21:57 :00 No [id number] 160mg 160 mg, Intramuscu lar, ONCE, 1 dose, On Mon05/22/24 at 1545, DEL, Reason for Anti-Infec tive: Surgical Prophylaxi s, Surgical Prophylaxi s: Other (see Comments), Duration of therapy: within 24 hours of surgery [facility] lidocaine (XYLOCAINE) 2 % jelly URO-JET 10 mL 2023-06 21:00: 00 05-22 22:48 :00 No [id number] 10mL 10 mL, Urethral, ONCE, 1 dose, On Mon05/22/24 at 1500, Routine [facility] ciprofloxac in HCl 500 mg tablet 2023-06 00:00: 00 05-26 05:59 :00 No [id number] 500mg Take 1 tablet by mouth every 12 (twelve) hours for 5 days. [facility] mupirocin 2 % ointment 2023-06 00:00: 00 08-07 00:00 :00 No Apply to area(s). [facility] fluconazole 100 mg tablet 2023-06 00:00: 00 07-03 00:00 :00 No 100mg Take 1 tablet by mouth in the morning. [facility] gentamicin injection 160 mg 2023-06 21:00: 00 05-15 08:59 :00 No [id number] 160mg [facility] cefTRIAXone (ROCEPHIN) 1,000 mg in water for injection, sterile 10 mL IV Push 2023-06 21:30: 00 05-06 22:02 :00 No 1000mg 1,000 mg, Intravenou s, ONCE, 1 dose, On Mon05/06/24 at 1530, 10 mL, Reason for Anti-Infec tive: Empiric Therapy for Suspected Infection, Empiric Therapy Site: Urine, Duration of therapy: Once (ED) [facility] sulfamethox azole-trime thoprim 800-160 mg per tablet 2023-06 00:00: 00 05-20 00:00 :00 No [id number] 1{tbl} Take 1 tablet by mouth every 12 (twelve) hours. [facility] pantoprazol e 40 mg EC tablet 2023-06 00:00: 00 06-03 00:00 :00 No [id number] 40mg Take 1 tablet by mouth in the morning for 30 days. [facility] tamsulosin 0.4 mg 24 hr capsule 2023-06 00:00: 00 06-03 00:00 :00 No [id number] .4mg Take 1 capsule by mouth in the morning for 30 days. [facility] levothyroxi ne 25 mcg tablet 2023-06 00:00: 00 06-03 00:00 :00 No [id number] 25ug Take 1 tablet by mouth every morning for 30 days. [facility] aspirin 81 mg chewable tablet 2023-06 16:19: 44 06-03 00:00 :00 No 81mg Take 1 tablet by mouth in the morning. [facility] carvediloL 6.25 mg tablet 2023-06 16:19: 42 05-02 00:00 :00 No 6.25mg Take 1 tablet by mouth in the morning and 1 tablet in the evening. Take with meals. [facility] furosemide 40 mg tablet 2023-06 16:19: 42 05-02 00:00 :00 No 40mg Take 1 tablet by mouth in the morning. [facility] carvediloL 3.125 mg tablet 2023-06 00:00: 00 06-03 00:00 :00 No [id number] 3.125mg Take 1 tablet by mouth in the morning and 1 tablet in the evening. Take with meals. Do all this for 30 days. [facility] furosemide 80 mg tablet 2023-06 00:00: 00 06-03 00:00 :00 No [id number] 80mg Take 1 tablet by mouth every morning and evening for 30 days. [facility] sacubitriL- valsartan 24-26 mg tablet 2023-06 00:00: 00 06-03 00:00 :00 No [id number] 1{tbl} Take 1 tablet by mouth in the morning and 1 tablet in the evening. Do all this for 30 days. [facility] sodium chloride 0.9 % irrigation solution 3,000 mL 2023-06 18:22: 15 05-02 22:19 :44 No 3000mL 3,000 mL, Irrigation , PRN, Starting on Mon05/01/24 at 1222, Until Mon05/02/24 at 1619, 3,000 mL [facility] heparin 1,000 unit/mL (10 mL) - dialysis catheter care 2023-06 17:00: 00 05-01 18:29 :00 No [id number] 1000U ONCE, 1 dose, On Mon05/01/24 at 1230, Routine [facility] alteplase (CATHFLO ACTIVASE) intraventri cular injection 3.7 mg 2023-06 15:00: 00 05-01 15:04 :00 No [id number] 3.7mg 3.7 mg, Intraventr icular, ONCE NOW, 1 dose, On Mon05/01/24 at 0900, DEL [facility] heparin 1,000 unit/mL (10 mL) - dialysis catheter care 2023-06 17:15: 00 04-29 20:09 :00 No [id number] 3700U ONCE, 1 dose, On 04/29/24 at 1115, Routine, CATH LINE DWELLING BLUE PORT 1.9ML RED PORT 1.8ML [facility] magnesium sulfate in water 2 gram/50 mL (4 %) infusion 2 g 2023-06 00:45: 00 04-29 02:44 :00 No 2g 2 g, IV Piggyback, Administer over 60 Minutes, ONCE, 1 dose, On 04/28/24 at 1845, Routine [facility] sulfur hexafluorid e microsphr (LUMASON) injection 5 mL 2023-06 17:15: 00 04-28 17:10 :00 No [id number] 5mL 5 mL, Intravenou s, ONCE, 1 dose, On 04/28/24 at 1115, Routine [facility] sacubitriL- valsartan (ENTRESTO) 24-26 mg tablet 1 tablet 2023-06 02:00: 00 Yes 1{tbl} 1 tablet, Oral, BID, First dose on 04/27/24 at 2000, Until Discontinu ed, Routine [facility] heparin 1,000 unit/mL (10 mL) - dialysis catheter care 2023-06 16:30: 00 04-27 16:36 :00 No [id number] 1000U ONCE, 1 dose, On 04/27/24 at 1030, Routine [facility] heparin 1,000 unit/mL (10 mL) - dialysis catheter care 2023-06 22:15: 00 04-26 21:18 :00 No [id number] 3700U ONCE, 1 dose, On Mon04/26/24 at 1615, Routine [facility] furosemide (LASIX) tablet 80 mg 2023-06 15:00: 00 Yes 80mg 80 mg, Oral, QAM+PM, First dose on Mon04/26/24 at 0900, Until Discontinu ed, Routine [facility] KCL (KLOR-CON M20) tablet 40 mEq 2023-06 14:00: 00 04-28 01:59 :00 No 40meq 40 mEq, Oral, BID, 3 doses, First dose on Mon04/26/24 at 0800, Last dose on Mon04/27/24 at 0800, Routine [facility] magnesium oxide (MAG-OX 400) tablet 400 mg 2023-06 14:00: 00 04-27 15:58 :00 No 400mg 400 mg, Oral, BID, 3 doses, First dose on Mon04/26/24 at 0800, Last dose on Mon04/27/24 at 0800, Routine [facility] magnesium sulfate in water 2 gram/50 mL (4 %) infusion 2 g 2023-06 12:15: 00 04-26 12:51 :00 No 2g 2 g, IV Piggyback, Administer over 60 Minutes, ONCE, 1 dose, On Mon04/26/24 at 0615, Routine [facility] heparin 1,000 unit/mL (10 mL) - dialysis catheter care 2023-06 04:45: 00 04-26 04:26 :00 No [id number] 3700U ONCE, 1 dose, On Mon04/25/24 at 2245, Routine [facility] albumin (ALBUMINAR 25%) 25 % injection 25 g 2023-06 01:15: 00 04-26 03:00 :00 No 25g 25 g, IV Infusion, ONCE, 1 dose, On Mon04/25/24 at 1915, 100 mL, Indication : NEPHROTIC SYNDROME (ACUTE, SEVERE PERIPHERAL OR PULMONARY EDEMA), Comments: Short-term use of albumin in combinatio n with diuretic therapy when: serum albumin <2 g/dL and optimal diuretic therapy alone has failed, manufacturing 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 approving Restricted medication : EVA COKER [facility] traMADoL (ULTRAM) tablet 50 mg 2023-06 21:56: 12 05-02 22:19 :44 No 50mg 50 mg, Oral, Q6HPRN, Starting on Mon04/25/24 at 1556, Until Mon05/02/24 at 1619, Routine, Pain (scale 7-10) [facility] levothyroxi ne (SYNTHROID) tablet 25 mcg 2023-06 12:00: 00 Yes 25ug 25 mcg, Oral, QAM-0600, First dose on Mon04/25/24 at 0600, Until Discontinu ed, Routine [facility] furosemide (LASIX) 200 mg in NaCl 0.9% (NS) 100 mL infusion 2023-06 06:15: 00 04-26 02:26 :52 No 20mg/h 20 mg/hr (10 mL/hr), IV Infusion, CONTINUOUS , Starting on Mon04/25/24 at 0015, Do Not Refrigerat e. [facility] heparin (porcine) injection 5,000 Units 2023-06 02:00: 00 05-02 01:13 :11 No 5000U 5,000 Units, Subcutaneo us, Q12H, First dose (after last modificati on) on Mon04/24/24 at 2000, Until Discontinu ed, Routine [facility] pantoprazol e (PROTONIX) EC tablet 40 mg 2023-06 15:00: 00 Yes 40mg 40 mg, Oral, DAILY, First dose on Mon04/24/24 at 0900, Until Discontinu ed [facility] tamsulosin (FLOMAX) capsule 0.4 mg 2023-06 15:00: 00 Yes .4mg 0.4 mg, Oral, DAILY, First dose on Mon04/24/24 at 0900, Until Discontinu ed, Routine [facility] furosemide (LASIX) injection 40 mg 2023-06 00:00: 00 04-25 05:24 :02 No 40mg 40 mg, Slow IV Push, BIDPC, First dose on Mon04/23/24 at 1800, Until Discontinu ed, Routine [facility] carvediloL (COREG) tablet 3.125 mg 2023-06 23:00: 00 Yes 3.125mg 3.125 mg, Oral, BID MEALS, First dose on Mon04/23/24 at 1700, Until Discontinu ed, Routine [facility] heparin (porcine) injection 5,000 Units 2023-06 20:00: 00 04-24 20:58 :46 No 5000U 5,000 Units, Subcutaneo us, Q8H, First dose on Mon04/23/24 at 1400, Until Discontinu ed, Routine [facility] amLODIPine (NORVASC) tablet 5 mg 2023-06 19:45: 00 04-25 05:24 :14 No 5mg 5 mg, Oral, DAILY, First dose on Mon04/23/24 at 1345, Until Discontinu ed, Routine [facility] ondansetron (ZOFRAN (PF)) injection 4 mg 2023-06 19:37: 36 05-02 22:19 :44 No 4mg [facility] acetaminoph en (TYLENOL) tablet 650 mg 2023-06 19:34: 22 05-02 22:19 :44 No 650mg 650 mg, Oral, Q6HPRN, Starting on Mon04/23/24 at 1334, Until Mon05/02/24 at 1619, Routine, Pain (scale 1-3) [facility] furosemide (LASIX) injection 40 mg 2023-06 17:00: 00 04-23 17:08 :00 No 40mg 40 mg, IV Push, ONCE, 1 dose, On Mon04/23/24 at 1100, DEL [facility] Docusate 11-14 14:00: 00 No Notes: (Same as: Colace) (Do Not Crush) Ivonne Alvarez sennosides, JAIL 11-14 14:00: 00 No Notes: (Same as: Sergiookot) Ivonne Alvarez Levetiracet am 11-14 14:00: 00 No Notes: (Same as:Keabara) Ivonne Alvarez Protonix 11-14 13:30: 00 No Notes: Tablet should not be chewed or crushed. (Same as: Protonix) Ivonne Alvarez Calcium Gluconate 11-14 13:15: 00 No Notes: WASTE: F/P - Sink; E - Municipal Trash Bin Ivonne Alvarez Omeprazole 11-14 12:30: 00 No 40 mg, Route: PO, Drug form: ECCAP, Before Breakfast, Dosing Weight 113.636, kg, Start date: 11/15/15 7:30:00 CDT, Duration: 30 day, Stop date: 12/14/15 7:30:00 CDT Ivonne Alvarez Hydralazine 11-14 11:30: 00 No Notes: (Same as: Apresoline ) Push over 5 minutes Ivonne Alvarez Flomax 11-14 10:09: 00 Yes 0.4 mg, PO, BID, 0 Refill(s) Ivonne Puckettann metoprolol tartrate 11-14 10:09: 00 Yes BID, 0 Refill(s) Ivonne Puckettann Omeprazole 40 MG Enteric Coated Capsule [Prilosec] 11-14 10:09: 00 Yes 40 mg = 1 cap, PO, Daily, # 30 cap, 0 Refill(s) Ivonne Puckettann Bupropion 11-14 10:09: 00 Yes PO, 0 Refill(s) Ivonne Alvarez Lisinopril 11-14 10:09: 00 Yes PO, BID, 0 Refill(s) Ivonne Alvarez Levetiracet am 11-14 07:45: 00 Yes Notes: Same as Keppra Mix with 100 mL NS, LR or D5W MEDICATION WASTE Product Size: 500 mg Product Wasted: ___ mg Ivonne Puckettann Saline Flush 0.9% 11-14 07:45: 00 No Notes: (Same as: BD Posiflush) Ivonne Puckettann Ondansetron 11-14 07:45: 00 No Notes: (Same as: Zofran) MEDICATION WASTE Product Size: 4 mg Product Wasted: ___ mg Ivonne adrian Antonio tamsulosin (FLOMAX) 0.4 mg 24 hr capsule 03-04 00:00: 00 05-02 00:00 :00 No TAKE 2 CAPSULES BY MOUTH EVERY DAY [facility] CIALIS 5 mg tablet 707 00:00: 00 05-02 00:00 :00 No TAKE ONE TABLET BY MOUTH ONCE DAILY [facility] hydrochloro thiazide (ESIDRIX) 25 mg tablet 09-30 00:00: 00 05-02 00:00 :00 No [id number] 25mg Take 1 Tab by mouth daily. [facility] lisinopril (PRINIVIL,Z ESTRIL) 20 mg tablet 09-30 00:00: 00 05-02 00:00 :00 No [id number] 20mg Take 1 Tab by mouth 2 (two) times daily. [facility] triamcinolo ne acetonide (TRIDERM) 0.1 % cream 07-28 00:00: 00 05-02 00:00 :00 No [id number] Apply to area(s) 2 (two) times daily. [facility] triamcinolo ne acetonide (KENALOG) 0.1 % ointment 07-28 00:00: 00 05-02 00:00 :00 No Apply to area(s) 2 (two) times daily. [facility] omeprazole (PRILOSEC) 40 mg capsule 01-13 00:00: 00 05-02 00:00 :00 No [id number] 40mg Take 1 Cap by mouth daily. [facility] vitamin B-12 (VITAMIN B-12) 250 mcg tablet 11-20 00:00: 00 Yes 250ug Take 1 Tab by mouth daily. [facility] Sodium Bicarbonate Sodium Bicarbonate Yes Na Sandoval as directed [facility] [place] 3 Yes Na Sandoval not defined [facility] Vitamin D-[address] Vitamin D-[address] Yes Na Sandoval not defined [facility] Yes Na Sandoval no t defined [facility] Probiotic Probiotic Yes Na Sandoval not defined [facility] Carvedilol Carvedilol Yes Na Sandoval 1 tablet with food [facility] Probiotic Probiotic No Probiotic Carvedilol 12.5 MG Carvedilol 12.5 MG No 1{table t_with_ food} BID Carvedilol 12.5 MG Sodium Bicarbonate 650 MG Sodium Bicarbonate 650 MG No QD Sodium Bicarbonat e 650 MG Immunizations Ordered Immunization Name Filled Immunization Name Date Status Comments Source Pneumococcal Polysaccharide, PPSV23 (PNEUMOVAX) 2013-11-28 00:00:00 Completed [facility] Vital Signs Vital Name Observation Time Observation Value Comments S ource Systolic blood pressure 2024-09-06 16:16:00 147 mm[Hg] [facility] Diastolic blood pressure 2024-09-06 16:16:00 85 mm[Hg] [facility] Heart rate 2024-09-06 16:16:00 86 /min [facility] Body temperature 2024-09-06 16:16:00 36.44 Mariella [facility] Body height 2024-09-06 16:16:00 188 cm [facility] Body weight 2024-09-06 16:16:00 92.035 kg [facility] BMI 2024-09-06 16:16:00 26.05 kg/m2 [facility] Oxygen saturation in Arterial blood by Pulse oximetry 2024-09-06 16:16:00 96 /min [facility] Systolic blood pressure 2024-08-07 21:30:00 116 mm[Hg] [facility] Diastolic blood pressure 2024-08-07 21:30:00 53 mm[Hg] [facility] Heart rate 2024-08-07 21:30:00 86 /min [facility] Body temperature 2024-08-07 21:30:00 37.28 Mariella [facility] Respiratory rate 2024-08-07 21:30:00 20 /min [facility] Oxygen saturation in Arterial blood by Pulse oximetry 2024-08-07 21:30:00 95 /min [facility] Body weight 2024-08-06 23:15:00 97.115 kg weight by andie & pct. weighed on scale [facility] BMI 2024-08-06 23:15:00 27.49 kg/m2 [facility] Body height 2024-07-23 16:45:00 188 cm [facility] Systolic blood pressure 2024-07-19 11:43:00 144 mm[Hg] [facility] Diastolic blood pressure 2024-07-19 11:43:00 52 mm[Hg] [facility] Heart rate 2024-07-19 11:43:00 74 /min [facility] Body temperature 2024-07-19 11:43:00 36.61 Mariella [facility] Respiratory rate 2024-07-19 11:43:00 16 /min [facility] Body height 2024-07-19 11:43:00 188 cm [facility] Body weight 2024-07-19 11:43:00 93.713 kg [facility] BMI 2024-07-19 11:43:00 26.53 kg/m2 [facility] Oxygen saturation in Arterial blood by Pulse oximetry 2024-07-19 11:43:00 100 /min [facility] Systolic blood pressure 2024-07-17 21:39:00 116 mm[Hg] [facility] Diastolic blood pressure 2024-07-17 21:39:00 51 mm[Hg] [facility] Heart rate 2024-07-17 21:39:00 74 /min [facility] Body temperature 2024-07-17 21:39:00 36.78 Mariella [facility] Body height 2024-07-17 21:39:00 188 cm [facility] Body weight 2024-07-17 21:39:00 97.387 kg [facility] BMI 2024-07-17 21:39:00 27.57 kg/m2 [facility] Oxygen saturation in Arterial blood by Pulse oximetry 2024-07-17 21:39:00 99 /min [facility] Systolic blood pressure 2024-07-15 20:30:00 137 mm[Hg] [facility] Diastolic blood pressure 2024-07-15 20:30:00 67 mm[Hg] [facility] Heart rate 2024-07-15 20:28:00 69 /min [facility] Body temperature 2024-07-15 20:28:00 36.5 Mariella [facility] Body height 2024-07-15 20:28:00 188 cm [facility] Body weight 2024-07-15 20:28:00 96.616 kg [facility] BMI 2024-07-15 20:28:00 27.35 kg/m2 [facility] Oxygen saturation in Arterial blood by Pulse oximetry 2024-07-15 20:28:00 100 /min [facility] Systolic blood pressure 2024-07-02 15:14:00 150 mm[Hg] [facility] Diastolic blood pressure 2024-07-02 15:14:00 65 mm[Hg] [facility] Heart rate 2024-07-02 15:14:00 77 /min [facility] Oxygen saturation in Arterial blood by Pulse oximetry 2024-07-02 15:14:00 100 /min [facility] Body temperature 2024-07-02 15:12:00 36.94 Mariella [facility] Body height 2024-07-02 15:12:00 188 cm [facility] Body weight 2024-07-02 15:12:00 97.251 kg [facility] BMI 2024-07-02 15:12:00 27.53 kg/m2 [facility] Body weight 2024-06-21 21:01:00 96.163 kg [facility] BMI 2024-06-21 21:01:00 27.22 kg/m2 [facility] Systolic blood pressure 2024-06-14 15:42:00 119 mm[Hg] [facility] Diastolic blood pressure 2024-06-14 15:42:00 59 mm[Hg] [facility] Heart rate 2024-06-14 15:42:00 76 /min [facility] Body temperature 2024-06-14 15:42:00 36.44 Mariella [facility] Body height 2024-06-14 15:42:00 188 cm [facility] Body weight 2024-06-14 15:42:00 96.571 kg [facility] BMI 2024-06-14 15:42:00 27.33 kg/m2 [facility] Oxygen saturation in Arterial blood by Pulse oximetry 2024-06-14 15:42:00 97 /min [facility] Systolic blood pressure 2024-06-10 21:36:00 133 mm[Hg] [facility] Diastolic blood pressure 2024-06-10 21:36:00 60 mm[Hg] [facility] Heart rate 2024-06-10 21:36:00 73 /min [facility] Body temperature 2024-06-10 21:36:00 35.56 Mariella [facility] Respiratory rate 2024-06-10 21:36:00 16 /min [facility] Body height 2024-06-10 21:36:00 188 cm [facility] Body weight 2024-06-10 21:36:00 97.523 kg [facility] BMI 2024-06-10 21:36:00 27.60 kg/m2 [facility] Oxygen saturation in Arterial blood by Pulse oximetry 2024-06-10 21:36:00 98 /min room air [facility] Systolic blood pressure 2024-06-04 23:50:00 136 mm[Hg] [facility] Diastolic blood pressure 2024-06-04 23:50:00 63 mm[Hg] [facility] Heart rate 2024-06-04 23:50:00 80 /min [facility] Body temperature 2024-06-04 23:50:00 36.28 Mariella [facility] Respiratory rate 2024-06-04 23:50:00 18 /min [facility] Body weight 2024-06-04 23:50:00 90.7 kg [facility] BMI 2024-06-04 23:50:00 25.67 kg/m2 [facility] Oxygen saturation in Arterial blood by Pulse oximetry 2024-06-04 17:46:00 97 /min [facility] Body height 2024-05-30 19:06:00 188 cm [facility] Systolic blood pressure 2024-05-30 20:04:33 160 mm[Hg] [facility] Diastolic blood pressure 2024-05-30 20:04:33 61 mm[Hg] [facility] Respiratory rate 2024-05-30 20:04:33 18 /min [facility] Oxygen saturation in Arterial blood by Pulse oximetry 2024-05-30 20:04:33 100 /min [facility] Heart rate 2024-05-30 19:06:00 84 /min [facility] Body height 2024-05-30 19:06:00 188 cm [facility] Body weight 2024-05-30 19:06:00 93 kg [facility] BMI 2024-05-30 19:06:00 25.63 kg/m2 [facility] Body temperature 2024-05-30 17:20:00 36.39 Mariella [facility] Systolic blood pressure 2024-05-22 20:45:00 120 mm[Hg] [facility] Diastolic blood pressure 2024-05-22 20:45:00 61 mm[Hg] [facility] Heart rate 2024-05-22 20:45:00 88 /min [facility] Body height 2024-05-22 20:45:00 188 cm [facility] Body weight 2024-05-22 20:45:00 92.987 kg [facility] BMI 2024-05-22 20:45:00 26.32 kg/m2 [facility] Oxygen saturation in Arterial blood by Pulse oximetry 2024-05-22 20:45:00 100 /min [facility] Systolic blood pressure 2024-05-14 18:59:00 137 mm[Hg] [facility] Diastolic blood pressure 2024-05-14 18:59:00 68 mm[Hg] [facility] Heart rate 2024-05-14 18:59:00 94 /min [facility] Body temperature 2024-05-14 18:59:00 37.28 Mariella [facility] Respiratory rate 2024-05-14 18:59:00 20 /min [facility] Body height 2024-05-14 18:59:00 188 cm [facility] Body weight 2024-05-14 18:59:00 96.163 kg [facility] BMI 2024-05-14 18:59:00 27.22 kg/m2 [facility] Oxygen saturation in Arterial blood by Pulse oximetry 2024-05-14 18:59:00 98 /min [facility] Systolic blood pressure 2024-05-06 21:47:00 132 mm[Hg] [facility] Diastolic blood pressure 2024-05-06 21:47:00 56 mm[Hg] [facility] Heart rate 2024-05-06 21:47:00 81 /min [facility] Respiratory rate 2024-05-06 21:47:00 16 /min [facility] Oxygen saturation in Arterial blood by Pulse oximetry 2024-05-06 21:47:00 99 /min [facility] Body temperature 2024-05-06 18:13:00 36.83 Mariella [facility] Body height 2024-05-06 18:11:00 188 cm [facility] Body weight 2024-05-06 18:11:00 96.163 kg [facility] BMI 2024-05-06 18:11:00 27.22 kg/m2 [facility] Systolic blood pressure 2024-05-02 21:42:00 115 mm[Hg] [facility] Diastolic blood pressure 2024-05-02 21:42:00 57 mm[Hg] [facility] Heart rate 2024-05-02 21:42:00 85 /min [facility] Body temperature 2024-05-02 21:42:00 36.44 Mariella [facility] Respiratory rate 2024-05-02 21:42:00 19 /min [facility] Oxygen saturation in Arterial blood by Pulse oximetry 2024-05-02 21:42:00 98 /min [facility] Body weight 2024-05-01 18:36:00 96.5 kg bed scale [facility] BMI 2024-05-01 18:36:00 27.31 kg/m2 [facility] Body height 2024-04-23 19:53:00 188 cm [facility] Temperature Oral (F) 2015-11-16 17:00:00 97.4 F [facility] Respitory Rate 2015-11-16 16:00:00 [facility] Systolic (mm Hg) 2015-11-16 16:00:00 [facility] Diastolic (mm Hg) 2015-11-16 16:00:00 [facility] Systolic (mm Hg) 2015-11-16 15:00:00 [facility] Diastolic (mm Hg) 2015-11-16 15:00:00 [facility] Respitory Rate 2015-11-16 15:00:00 [facility] Systolic (mm Hg) 2015-11-16 14:00:00 [facility] Diastolic (mm Hg) 2015-11-16 14:00:00 [facility] Respitory Rate 2015-11-16 14:00:00 [facility] Temperature Oral (F) 2015-11-16 13:00:00 96.9 F [facility] Temperature Oral (F) 2015-11-16 09:00:00 97.6 F [facility] Height 2015-11-15 09:54:00 187.96 cm [facility] BMI Calculated 2015-11-15 09:54:00 [facility] Weight 2015-11-15 09:54:00 [facility] Weight 2015-11-15 05:07:00 [facility] BMI Calculated 2015-11-15 05:07:00 [facility] Height 2015-11-15 05:07:00 187.96 cm [facility] Heart Rate 2015-11-15 05:07:00 [facility] Procedures Procedure Date / Time Performed Performing Clinician Source EKG-12 LEAD 2024-09-06 16:55:18 Doctor Unass igned, [place] [facility] XR CHEST 1 2024-08-07 19:55:00 Tobi Crouch [facility] XR CHEST 1 2024-08-07 12:34:20 Tobi Crouch [facility] BASIC METABOLIC PANEL (NA, K, CL, CO2, GLUCOSE, BUN, CREATININE, CA) 2024-08-06 19:10:00 Sotuh Reinoso [facility] CBC WITH DIFF 2024-08-06 19:10:00 [place] [facility] 2024-08-06 10:09:00 Tobi Crouch [facility] [place] MODIFIED BARIUM SWALLOW 2024-08-05 20:55:00 Tobi Crouch [facility] PHOSPHORUS 2024-08-04 11:29:00 Megan Lopez [facility] MAGNESIUM 2024-08-04 11:29:00 John [facility] BASIC METABOLIC PANEL (NA, K, CL, CO2, GLUCOSE, BUN, CREATININE, CA) 2024-08-04 11:29:00 [facility] 2024-08-04 09:55:00 Rebel [facility] XR CHEST 1 2024-08-03 16:12:00 Rebel [facility] PHOSPHORUS 2024-08-03 15:22:00 Lopez [facility] MAGNESIUM 2024-08-03 15:22:00 John [facility] BASIC METABOLIC PANEL (NA, K, CL, CO2, GLUCOSE, BUN, CREATININE, CA) 2024-08-03 15:22:00 Jonh [facility] XR CHEST 1 2024-08-02 19:23:00 Devonte Chávez [facility] XR CHEST 1 2024-08-02 12:08:00 Melissa Luque [facility] PHOSPHORUS 2024-08-01 10:19:00 Rosemarie March [facility] MAGNESIUM 2024-08-01 10:19:00 Rosemarie March [facility] BASIC METABOLIC PANEL (NA, K, CL, CO2, GLUCOSE, BUN, CREATININE, CA) 2024-08-01 10:19:00 Norma March [facility] XR CHEST 1 2024-08-01 10:18:00 Melissa Luque [facility] PHOSPHORUS 2024-07-31 11:38:00 Rosemarie March [facility] MAGNESIUM 2024-07-31 11:38:00 Rosemarie March [facility] BASIC METABOLIC PANEL (NA, K, CL, CO2, GLUCOSE, BUN, CREATININE, CA) 2024-07-31 11:38:00 Norma March [facility] VANCOMYCIN RANDOM LEVEL 2024-07-31 11:38:00 Sudarshan Vidales [facility] XR CHEST 1 2024-07-31 10:02:00 Brown, Melissa [facility] POCT GLUCOSE (AUTOMATED) 2024-07-30 22:06:00 LicNoemi kaufman [facility] POCT GLUCOSE (AUTOMATED) 2024-07-30 17:34:00 Noemi Sherman [facility] HB ECG ROUTINE & RHYTHM STRIP 2024-07-30 16:19:57 Bernardo Cantu [facility] POCT GLUCOSE (AUTOMATED) 2024-07-30 13:22:00 LicNoemi kaufman [facility] XR CHEST 1 VW 2024-07-30 12:56:00 Melissa Luque [facility] PHOSPHORUS 2024-07-30 10:21:00 Rosemarie March [facility] MAGNESIUM 2024-07-30 10:21:00 Rosemarie March [facility] BASIC METABOLIC PANEL (NA, K, CL, CO2, GLUCOSE, BUN, CREATININE, CA) 2024-07-30 10:21:00 Norma March [facility] VANCOMYCIN RANDOM LEVEL 2024-07-30 10:21:00 Clyde Sherman [facility] CBC WITHOUT DIFF 2024-07-30 10:21:00 Naomi March [facility] POCT GLUCOSE (AUTOMATED) 2024-07-29 21:35:00 Noemi Sherman [facility] POCT GLUCOSE (AUTOMATED) 2024-07-29 18:00:00 LickNoemi [facility] POCT GLUCOSE (AUTOMATED) 2024-07-29 13:55:00 LickNoemi [facility] POCT GLUCOSE (AUTOMATED) 2024-07-29 13:54:00 LickNoemi [facility] XR CHEST 1 VW 2024-07-29 13:05:00 Megan Lopez [facility] PHOSPHORUS 2024-07-29 10:31:00 Rosemarie March [facility] MAGNESIUM 2024-07-29 10:31:00 Rosemarie March [facility] BASIC METABOLIC PANEL (NA, K, CL, CO2, GLUCOSE, BUN, CREATININE, CA) 2024-07-29 10:31:00 Norma March [facility] VANCOMYCIN RANDOM LEVEL 2024-07-29 10:31:00 Clyde Sherman t [facility] CBC WITHOUT DIFF 2024-07-29 10:31:00 Naomi March [facility] N-TERMINAL PRO-BNP 2024-07-29 10:31:00 [place] [facility] AC PANEL 20 + LACTIC ACID 2024-07-29 10:31:00 Norma Infante [facility] AC PANEL 20 + LACTIC ACID 2024-07-29 01:25:00 Leisa Mello [facility] POCT GLUCOSE (AUTOMATED) 2024-07-28 22:28:00 Lick, Miguelo tt [facility] AC PANEL 20 + LACTIC ACID 2024-07-28 20:56:00 Norma Infante [facility] BLOOD CULTURE SCREEN 2024-07-28 19:51:00 Nicko Mello [facility] POCT GLUCOSE (AUTOMATED) 2024-07-28 17:33:00 Lick, Sco tt [facility] XR CHEST 1 VW 2024-07-28 17:05:00 Fabian Chappell [facility] POCT GLUCOSE (AUTOMATED) 2024-07-28 13:44:00 Lick, Sco tt [facility] XR CHEST 1 VW 2024-07-28 12:23:00 Rosemarie March [facility] PHOSPHORUS 2024-07-28 10:16:00 [place] [facility] 2024-07-28 10:16:00 Claudia Atwood [facility] MAGNESIUM 2024-07-28 10:16:00 Rosemarie March [facility] HEPATIC FUNCTION PANEL ([id number]) (ALB,T.PRO,BILI T,BU/BC,ALT,AST,ALK PHOS) 2024-07-28 10:16:00 Norma March [facility] BASIC METABOLIC PANEL (NA, K, CL, CO2, GLUCOSE, BUN, CREATININE, CA) 2024-07-28 10:16:00 Norma March [facility] VANCOMYCIN RANDOM LEVEL 2024-07-28 10:16:00 Clyde Sherman [facility] CBC WITHOUT DIFF 2024-07-28 10:16:00 Naomi March [facility] PROCALCITONIN 2024-07-28 10:16:00 Rosemarie March [facility] AC PANEL 20 + LACTIC ACID 2024-07-28 06:04:00 Norma Infante [facility] AC PANEL 20 + LACTIC ACID 2024-07-28 01:44:00 Norma Infante [facility] PHOSPHORUS 2024-07-27 23:53:00 Rosemarie March [facility] MAGNESIUM 2024-07-27 23:53:00 Rosemarie March [facility] BASIC METABOLIC PANEL (NA, K, CL, CO2, GLUCOSE, BUN, CREATININE, CA) 2024-07-27 23:53:00 Norma March [facility] AC PANEL 20 + LACTIC ACID 2024-07-27 23:26:00 Norma Infante [facility] POCT GLUCOSE (AUTOMATED) 2024-07-27 22:29:00 Noemi Sherman tt [facility] TRANSTHORACIC ECHO (TTE) COMPLETE W/ CONTRAST 2024-07-27 21:42:30 Fabian Chappell [facility] AC PANEL 20 + LACTIC ACID 2024-07-27 19:52:00 Norma Infante [facility] XR CHEST 1 VW 2024-07-27 17:37:00 Rosemarie March [facility] ABG+COOX+NA+K+GLU+CA2+ 2024-07-27 16:20:00 [facility] PREPARE PACKED RBC 2024-07-27 14:55:50 Andie Zayas [facility] ARTERIAL LINE 2024-07-27 14:42:00 Rosemarie March [facility] AC PANEL 21 + LACTIC ACID 2024-07-27 13:31:00 Ronak Mantilla [facility] HB ABO GROUPING 2024-07-27 12:45:00 Ra patricia Zayas [facility] FREE T4 2024-07-27 11:25:00 Ra patricia Zayas [facility] THYROID STIMULATING HORMONE 2024-07-27 11:25:00 Andie Zayas [facility] BASIC METABOLIC PANEL (NA, K, CL, CO2, GLUCOSE, BUN, CREATININE, CA) 2024-07-27 11:25:00 Andie Zayas [facility] POCT GLUCOSE (AUTOMATED) 2024-07-27 10:28:00 Noemi Sherman tt [facility] CBC WITH DIFF 2024-07-27 10:25:00 Ra patricia Zayas [facility] BLOOD CULTURE SCREEN 2024-07-27 09:24:00 Andie Salinas [facility] PHOSPHORUS 2024-07-27 09:14:00 Rebel [facility] MAGNESIUM [facility]24-07-27 [facility]27 09:14:00 Ra patricia Zayas [facility] BASIC METABOLIC PANEL (NA, K, CL, CO2, GLUCOSE, BUN, CREATININE, CA) 2024-07-27 09:14:00 Rebel [facility] CBC WITHOUT DIFF 2024-07-27 09:14:00 Rebel [facility] BLOOD CULTURE SCREEN 2024-07-27 08:54:00 Andie Salinas [facility] BLOOD CULTURE WORKUP 2024-07-27 08:54:00 Andie Salinas [facility] GRAM POSITIVE BLOOD PATHOGENS DNA PROBE-AEROBIC 2024-07-27 08:54:00 Andie Zayas [facility] CT HEAD WO CONTRAST 2024-07-27 08:21:17 Andie Zayas [facility] XR CHEST 1 VW 2024-07-27 08:10:13 Ra patricia Zayas [facility] AC PANEL 21 + LACTIC ACID 2024-07-27 08:02:00 Ronak Mantilla [facility] PHOSPHORUS 2024-07-27 06:28:00 Gorjackie, Ra patricia Bourne [facility] CREATINE KINASE 2024-07-27 06:28:00 Gorenmagdalenao, Ra patricia Bourne [facility] MAGNESIUM 2024-07-27 06:28:00 Gorenflo, Ra patricia Bourne [facility] AMMONIA, PLASMA 2024-07-27 06:28:00 Gorkatio, Ra patricia Bourne [facility] IONIZED CALCIUM 2024-07-27 06:28:00 Marquez, Ra patricia Bourne [facility] BILI UNCONJUGATED/BILI CONJUG 2024-07-27 06:28:00 Andie Zayas [facility] TROPONIN I 2024-07-27 06:28:00 Ra patricia Zayas [facility] HEPATIC FUNCTION PANEL ([id number]) (ALB,T.PRO,BILI T,BU/BC,ALT,AST,ALK PHOS) 2024-07-27 06:28:00 Andie Zayas [facility] BASIC METABOLIC PANEL (NA, K, CL, CO2, GLUCOSE, BUN, CREATININE, CA) 2024-07-27 06:28:00 Andie Zayas [facility] CBC WITH DIFF 2024-07-27 06:28:00 Ra patricia Zayas [facility] PROTHROMBIN TIME / INR 2024-07-27 06:28:00 Andie Null [facility] ACTIVATED PARTIAL THRMPLAS RADHA 2024-07-27 06:28:00 Andie Zayas [facility] FIBRINOGEN 2024-07-27 06:28:00 Ra patricia Zayas [facility] MYOGLOBIN SERUM 2024-07-27 06:28:00 Ra patricia Zayas [facility] HB ECG ROUTINE & RHYTHM STRIP 2024-07-27 06:05:00 Andie Zayas [facility] AC PANEL 20 + LACTIC ACID 2024-07-27 05:57:00 Andie Hua [facility] POCT GLUCOSE (AUTOMATED) 2024-07-27 04:21:00 Lick Sco joe [facility] AC PANEL 21 + LACTIC ACID 2024-07-27 02:20:00 Tom Reinoso am [facility] POCT GLUCOSE (AUTOMATED) 2024-07-27 01:59:00 LickMiguelo joe [facility] PHOSPHORUS 2024-07-26 23:35:00 [place] [facility] TROPONIN I 2024-07-26 23:35:00 Ra patricia Zayas Tayla [facility] BASIC METABOLIC PANEL (NA, K, CL, CO2, GLUCOSE, BUN, CREATININE, CA) 2024-07-26 23:35:00 [place] [facility] CBC WITH DIFF 2024-07-26 23:35:00 [place] [facility] [facility]24-07-26 22:33:00 Fabian Chappell [facility] URINE CULTURE 2024-07-26 22:33:00 Fabian Chappell [facility] POCT GLUCOSE (AUTOMATED) 2024-07-26 22:26:00 LickMiguelo joe [facility] POCT GLUCOSE (AUTOMATED) 2024-07-26 18:19:00 LickMiguelo tt [facility] MR BRAIN WO CONTRAST 2024-07-26 16:48:37 Melissa Luque [facility] CT THORAX WO CONTRAST 2024-07-26 15:48:30 Megan Lopez [facility] POCT GLUCOSE (AUTOMATED) 2024-07-26 14:43:00 LickMiguelo joe [facility] POCT GLUCOSE (AUTOMATED) 2024-07-26 02:53:00 Lick Sco tt [facility] CT ANGIOGRAM HEAD 2024-07-26 02:35:47 Brown, Melissa Uni [facility] CT ANGIOGRAM NECK 2024-07-26 02:35:47 Melissa Luque [facility] POCT GLUCOSE (AUTOMATED) 2024-07-26 00:27:00 Noemi Sherman [facility] POCT GLUCOSE (AUTOMATED) 2024-07-25 17:33:00 Noemi Sherman [facility] POCT GLUCOSE (AUTOMATED) 2024-07-25 14:21:00 Noemi Sherman [facility] XR CHEST 2 VW 2024-07-25 12:57:43 Devonte Chávez [facility] PHOSPHORUS 2024-07-25 11:14:00 Rosemarie March [facility] MAGNESIUM 2024-07-25 11:14:00 Rosemarie March [facility] BASIC METABOLIC PANEL (NA, K, CL, CO2, GLUCOSE, BUN, CREATININE, CA) 2024-07-25 11:14:00 Norma March [facility] CBC WITHOUT DIFF 2024-07-25 11:14:00 Naomi March [facility] POCT GLUCOSE (AUTOMATED) 2024-07-25 02:02:00 Noemi Sherman [facility] POCT GLUCOSE (AUTOMATED) 2024-07-24 22:48:00 DaríokNoemi [facility] POCT GLUCOSE (AUTOMATED) 2024-07-24 18:15:00 DaríokNoemi [facility] POCT GLUCOSE (AUTOMATED) 2024-07-24 14:18:00 LickNoemi [facility] PHOSPHORUS 2024-07-24 09:41:00 Rosemarei March [facility] MAGNESIUM 2024-07-24 09:41:00 Rosemarie March [facility] BASIC METABOLIC PANEL (NA, K, CL, CO2, GLUCOSE, BUN, CREATININE, CA) 2024-07-24 09:41:00 Too Chávez [facility] CBC WITH DIFF 2024-07-24 09:41:00 Devonte Chávez [facility] POCT GLUCOSE (AUTOMATED) 2024-07-24 01:43:00 LickMiguelo tt [facility] POCT GLUCOSE (AUTOMATED) 2024-07-23 23:15:00 LickMiguelo tt [facility] MRSA / MSSA SCREEN BY PCRJEET 2024-07-23 20:53:00 Kyler [facility] POCT GLUCOSE (AUTOMATED) 2024-07-23 18:48:00 Miguel Shermano joe [facility] CBC WITH DIFF 2024-07-23 14:07:00 Ra patricia Zayas [facility] GLYCOSYLATED HEMOGLOBIN (A1C) 2024-07-23 14:07:00 Kyler [facility] POCT GLUCOSE (AUTOMATED) 2024-07-23 14:06:00 Noemi Sherman [facility] TRANSFUSE PACKED RBC 2024-07-23 11:55:00 Andie Salinas [facility] PREPARE PACKED RBC 2024-07-23 11:44:59 Andie Zayas [facility] HB ABO GROUPING 2024-07-23 10:30:00 Ra patricia Zayas [facility] PHOSPHORUS 2024-07-23 09:17:00 Pepe [facility] MAGNESIUM 2024-07-23 09:17:00 Pepe [facility] BASIC METABOLIC PANEL (NA, K, CL, CO2, GLUCOSE, BUN, CREATININE, CA) 2024-07-23 09:17:00 Pepe [facility] CBC WITH DIFF 2024-07-23 09:17:00 Bernardo Cantu [facility] PROTHROMBIN TIME / INR 2024-07-23 09:17:00 Andie Null [facility] ACTIVATED PARTIAL THRMPLAS RADHA 2024-07-23 09:17:00 Andie Zayas [facility] FIBRINOGEN 2024-07-23 09:17:00 Ra patricia Zayas [facility] XR CHEST 1 VW 2024-07-23 01:47:00 Megan Lopez [facility] POCT GLUCOSE (AUTOMATED) 2024-07-23 01:43:00 Lick, Sco joe [facility] CBC WITH DIFF 2024-07-23 00:12:00 Ra patricia Zayas [facility] CBC WITH DIFF 2024-07-23 00:12:00 Ra patricia Zayas [facility] POCT GLUCOSE (AUTOMATED) 2024-07-22 22:21:00 Lick, Sco tt [facility] POCT GLUCOSE (AUTOMATED) 2024-07-22 22:21:00 Lick, Sco tt [facility] POCT GLUCOSE (AUTOMATED) 2024-07-22 18:08:00 Lick, Sco tt [facility] POCT GLUCOSE (AUTOMATED) 2024-07-22 18:08:00 Lick, Sco tt [facility] TRANSFUSE PACKED RBC 2024-07-22 14:30:00 Bernardo Cantu [facility] PREPARE PACKED RBC 2024-07-22 14:06:40 Bernardo Cantu [facility] PREPARE PACKED RBC 2024-07-22 14:06:40 [facility]24-07-22 09:42:00 Bernardo [facility] MAGNESIUM 2024-07-22 09:42:00 Bernardo Cantu [facility] BASIC METABOLIC PANEL (NA, K, CL, CO2, GLUCOSE, BUN, CREATININE, CA) 2024-07-22 09:42:00 Bernardo Cantu [facility] CBC WITH DIFF 2024-07-22 09:42:00 Bernardo Cantu [facility] PHOSPHORUS 2024-07-22 09:42:00 Bernardo Cantu [facility] MAGNESIUM 2024-07-22 09:42:00 Bernardo Cantu [facility] BASIC METABOLIC PANEL (NA, K, CL, CO2, GLUCOSE, BUN, CREATININE, CA) 2024-07-22 09:42:00 Bernardo Cantu [facility] CBC WITH DIFF 2024-07-22 09:42:00 Bernardo Cantu [facility] POCT GLUCOSE (AUTOMATED) 2024-07-21 21:43:00 Lick, Sco tt [facility] POCT GLUCOSE (AUTOMATED) 2024-07-21 21:43:00 Lick, Sco tt [facility] POCT GLUCOSE (AUTOMATED) 2024-07-21 17:35:00 Lick, Sco tt [facility] POCT GLUCOSE (AUTOMATED) 2024-07-21 17:35:00 Lick, Sco tt [facility] XR CHEST 1 VW 2024-07-21 15:07:00 Ana Montgomery [facility] POCT GLUCOSE (AUTOMATED) 2024-07-21 13:49:00 Lick, Miguelo tt [facility] POCT GLUCOSE (AUTOMATED) 2024-07-21 13:49:00 Daríok, Miguelo tt [facility] PHOSPHORUS 2024-07-21 09:52:00 Leisa Mello [facility] MAGNESIUM 2024-07-21 09:52:00 Funmilayo [facility] BASIC METABOLIC PANEL (NA, K, CL, CO2, GLUCOSE, BUN, CREATININE, CA) 2024-07-21 09:52:00 Leisa Mello [facility] CBC WITH DIFF 2024-07-21 09:52:00 Leisa Mello [facility] PHOSPHORUS 2024-07-21 09:52:00 Leisa Mello [facility] MAGNESIUM 2024-07-21 09:52:00 Funmilayo [facility] BASIC METABOLIC PANEL (NA, K, CL, CO2, GLUCOSE, BUN, CREATININE, CA) 2024-07-21 09:52:00 Leisa Mello [facility] CBC WITH DIFF 2024-07-21 09:52:00 Leisa Mello [facility] POCT GLUCOSE (AUTOMATED) 2024-07-21 01:56:00 Lick, Miguelo tt [facility] POCT GLUCOSE (AUTOMATED) 2024-07-21 01:56:00 Lick, Miguelo tt [facility] POCT GLUCOSE (AUTOMATED) 2024-07-20 22:51:00 Lick, Sco tt [facility] POCT GLUCOSE (AUTOMATED) 2024-07-20 22:51:00 Lick, Sco [facility] BASIC METABOLIC PANEL (NA, K, CL, CO2, GLUCOSE, BUN, CREATININE, CA) 2024-07-20 21:06:00 Manoj Montgomery [facility] CBC WITH DIFF 2024-07-20 21:06:00 Ana Montgomery [facility] ABG+COOX+NA+K+GLU+CA2+ 2024-07-20 21:06:00 [facility] BASIC METABOLIC PANEL (NA, K, CL, CO2, GLUCOSE, BUN, CREATININE, CA) 2024-07-20 21:06:00 Manoj Montgomery [facility] CBC WITH DIFF 2024-07-20 21:06:00 Ana Montgomery [facility] ABG+COOX+NA+K+GLU+CA2+ 2024-07-20 21:06:00 Fabian Win [facility] CBC WITH DIFF 2024-07-20 16:25:00 Ra patricia Zayas [facility] ABG+COOX+NA+K+GLU+CA2+ 2024-07-20 16:25:00 [facility] CBC WITH DIFF 2024-07-20 16:25:00 Ra patricia Zayas [facility] ABG+COOX+NA+K+GLU+CA2+ 2024-07-20 16:25:00 Fabian Win [facility] TRANSFUSE PACKED RBC 2024-07-20 14:15:00 Andie Salinas [facility] TRANSFUSE PACKED RBC 2024-07-20 14:15:00 Andie Salinas [facility] PREPARE PACKED RBC 2024-07-20 14:07:15 Andie Zayas [facility] PREPARE PACKED RBC 2024-07-20 14:07:15 Andie Zayas [facility] TRANSFUSE PACKED RBC 2024-07-20 11:30:00 Andie Salinas [facility] TRANSFUSE PACKED RBC 2024-07-20 11:30:00 Andie Salinas [facility] PREPARE PACKED RBC 2024-07-20 11:27:26 Andie Zayas [facility] PREPARE PACKED RBC 2024-07-20 11:27:26 Andie Zayas [facility] XR CHEST 1 VW 2024-07-20 10:32:33 Fabian Chappell [facility] XR CHEST 1 VW 2024-07-20 10:32:33 Fabian Chappell [facility] PHOSPHORUS 2024-07-20 09:57:00 Leisa Mello [facility] MAGNESIUM 2024-07-20 09:57:00 Funmilayo [facility] BASIC METABOLIC PANEL (NA, K, CL, CO2, GLUCOSE, BUN, CREATININE, CA) 2024-07-20 09:57:00 [facility] VANCOMYCIN RANDOM LEVEL 2024-07-20 09:57:00 [facility] CBC WITH DIFF 2024-07-20 09:57:00 [facility] PROTHROMBIN TIME / INR 2024-07-20 09:57:00 [facility] PHOSPHORUS 2024-07-20 09:57:00 Leisa Mello [facility] MAGNESIUM 2024-07-20 09:57:00 [facility]OLIC PANEL (NA, K, CL, CO2, GLUCOSE, BUN, CREATININE, CA) 2024-07-20 09:57:00 Fabian Chappell [facility] VANCOMYCIN RANDOM LEVEL 2024-07-20 09:57:00 Fabian Petersen [facility] CBC WITH DIFF 2024-07-20 09:57:00 Abdulameer, [facility] PROTHROMBIN TIME / INR 2024-07-20 09:57:00 Fabian Win [facility] AC PANEL 20 + LACTIC ACID 2024-07-20 05:59:00 Andie Hua [facility] AC PANEL 20 + LACTIC ACID 2024-07-20 05:59:00 Andie uHa [facility] BASIC METABOLIC PANEL (NA, K, CL, CO2, GLUCOSE, BUN, CREATININE, CA) 2024-07-20 05:58:00 Andie Zayas Tayla [facility] CBC WITH DIFF 2024-07-20 05:58:00 Ra patricia Zayas [facility] BASIC METABOLIC PANEL (NA, K, CL, CO2, GLUCOSE, BUN, CREATININE, CA) 2024-07-20 05:58:00 Andie Zayas Tyala [facility] CBC WITH DIFF 2024-07-20 05:58:00 Ra patricia Zayas [facility] TRANSFUSE PACKED RBC 2024-07-20 03:45:00 Gorenfl oAndie Tayla [facility] TRANSFUSE PACKED RBC 2024-07-20 03:45:00 Gorenfl oAndie [facility] PREPARE PACKED RBC 2024-07-20 03:37:44 Andie Zayas [facility] PREPARE PACKED RBC 2024-07-20 03:37:44 Andie Zayas Tayla [facility] XR ABDOMEN 1 VW 2024-07-20 01:14:00 [facility] XR CHEST 1 VW 2024-07-20 01:14:00 [facility] XR ABDOMEN 1 VW 2024-07-20 01:14:00 [facility] XR CHEST 1 VW 2024-07-20 01:14:00 [facility] HB ECG ROUTINE & RHYTHM STRIP 2024-07-20 01:11:54 [facility] POCT VISCOELASTIC TESTING 2024-07-20 00:30:00 LickMiguel [facility] POCT VISCOELASTIC TESTING 2024-07-20 00:30:00 DaríokMiguel [facility] PHOSPHORUS 2024-07-20 00:25:00 Fabian Chappell [facility] MAGNESIUM 2024-07-20 00:25:00 Fabian Chappell [facility] COMP. METABOLIC PANEL (47360) 2024-07-20 00:25:00 Leisa Mello [facility] CBC WITH DIFF 2024-07-20 00:25:00 Leisa Mello [facility] ABG+COOX+NA+K+GLU+CA2+ 2024-07-20 00:25:00 Fabian Win [facility] MRSA / MSSA SCREEN BY PCR, JEET 2024-07-20 00:25:00 [facility] PHOSPHORUS 2024-07-20 00:25:00 [facility] MAGNESIUM 2024-07-20 00:25:00 Fabian Chappell [facility] COMP. METABOLIC PANEL ([id number]) 2024-07-20 00:25:00 Leisa Mello [facility] CBC WITH DIFF 2024-07-20 00:25:00 Leisa Mello [facility] MRSA / MSSA SCREEN BY PCRJEET 2024-07-20 00:25:00 Fabian Chappell [facility] ABG+COOX+NA+K+GLU+CA2+ 2024-07-20 00:05:00 LicLaura kaufman [facility] ABG+COOX+NA+K+GLU+CA2+ 2024-07-20 00:05:00 Laura Sherman [facility] POCT VISCOELASTIC TESTING 2024-07-19 23:56:00 LickMiguel [facility] POCT VISCOELASTIC TESTING 2024-07-19 23:56:00 Miguel Sherman [facility] TRANSFUSE PLATELETS (IN ML) 2024-07-19 23:55:00 [facility] (IN ML) 2024-07-19 23:55:00 Baird, Jose Melissaey [facility] TRANSFUSE PLATELETS (IN ML) 2024-07-19 23:44:00 [facility]aird, [facility]ATELETS (IN ML) 2024-07-19 23:44:00 Oli, Jose Harrison [facility] PREPARE PLATELETS 2024-07-19 23:37:58 Baird, [facility] PREPARE PLATELETS 2024-07-19 23:37:58 Oli, Jose [facility] TRANSFUSE PACKED RBC 2024-07-19 23:07[facility] 2024-07-19 23:07:00 [facility]li[facility] ABG+COOX+NA+K+GLU+CA2+ 2024-07-19 23:05:00 Laura Sherman [facility] TRANSFUSE CRYOPRECIPITATE 2024-07-19 22:56:00 Baird, Nithya harper [facility] TRANSFUSE CRYOPRECIPITATE 2024-07-19 22:56:00 Baird, Nithya harper [facility] PREPARE CRYOPRECIPITATE 2024-07-19 22:50:43 Baird, Jose [facility] PREPARE CRYOPRECIPITATE 2024-07-19 22:50:43 Baird, Jose [facility] ABG+COOX+NA+K+GLU+CA2+ 2024-07-19 22:28:00 Laura Sherman [facility] TRANSFUSE CRYOPRECIPITATE 2024-07-19 22:24:00 Baird, Nithya harper [facility] TRANSFUSE CRYOPRECIPITATE 2024-07-19 22:24:00 Baird, Nithya harper [facility] POCT VISCOELASTIC TESTING 2024-07-19 22:23:00 LickMiguel [facility] POCT VISCOELASTIC TESTING 2024-07-19 22:23:00 Miguel Sherman [facility] TRANSFUSE PLATELETS (IN ML) 2024-07-19 22:01:00 Jose Baird [facility] TRANSFUSE PLATELETS (IN ML) 2024-07-19 22:01:00 Jose Baird [facility] TRANSFUSE PLATELETS (IN ML) 2024-07-19 21:58:00 Jose Baird [facility] TRANSFUSE PLATELETS (IN ML) 2024-07-19 21:58:00 Jose Baird [facility] PREPARE PLATELETS 2024-07-19 21:51:45 Jose Baird [facility] PREPARE PLATELETS 2024-07-19 21:51:45 Jose Baird [facility] ABG+COOX+NA+K+GLU+CA2+ 2024-07-19 21:38:00 Laura Sherman [facility] TRANSFUSE PACKED RBC 2024-07-19 21:19:00 Jose Baird [facility] TRANSFUSE PACKED RBC 2024-07-19 21:19:00 Jose Baird [facility] ABG+COOX+NA+K+GLU+CA2+ 2024-07-19 21:16:00 Laura Sherman [facility] POCT VISCOELASTIC TESTING 2024-07-19 21:13:00 Miguel Sherman [facility] POCT VISCOELASTIC TESTING 2024-07-19 21:13:00 Miguel Sherman [facility] TRANSFUSE PACKED RBC 2024-07-19 21:08:00 Jose Baird [facility] TRANSFUSE PACKED RBC 2024-07-19 21:08:00 Jose Baird [facility] PREPARE PACKED RBC 2024-07-19 20:42:57 Jose Baird [facility] PREPARE PACKED RBC 2024-07-19 20:42:57 Jose Baird [facility] ACUTE CARE ARTERIAL 2024-07-19 20:42:00 Lick, [facility] ACUTE CARE ARTERIAL 2024-07-19 20:42:00 Lick, [facility] TRANSFUSE PACKED RBC 2024-07-19 20:18:00 Jose Baird [facility] TRANSFUSE PACKED RBC 2024-07-19 20:18:00 Jose Baird [facility] ACUTE CARE ARTERIAL 2024-07-19 20:14:00 Lick, [facility] ACUTE CARE ARTERIAL 2024-07-19 20:14:00 Lick, [facility] ABG+COOX+NA+K+GLU+CA2+ 2024-07-19 20:12:00 Lick [facility] ACUTE CARE ARTERIAL 2024-07-19 19:57:00 Lick, [facility] ACUTE CARE ARTERIAL 2024-07-19 19:57:00 Lick, [facility] ACUTE CARE ARTERIAL 2024-07-19 19:27:00 Lick, [facility] ACUTE CARE ARTERIAL 2024-07-19 19:27:00 Lick, [facility] POCT ACT HIGH RANGE 2024-07-19 19:13:00 Laura Sherman [facility] POCT ACT HIGH RANGE 2024-07-19 19:13:00 Laura [facility] ACUTE CARE ARTERIAL 2024-07-19 18:55:00 Lick, [facility] ACUTE CARE ARTERIAL 2024-07-19 18:55:00 Lick, [facility] POCT ACT HIGH RANGE 2024-07-19 18:39:00 LicLaura kaufman [facility] POCT ACT HIGH RANGE 2024-07-19 18:39:00 Laura Sherman [facility] POCT ACT HIGH RANGE 2024-07-19 18:32:00 LicLaura kaufman [facility] POCT ACT HIGH RANGE 2024-07-19 18:32:00 Lick, Laura [facility] ABG+COOX+NA+K+GLU+CA2+ 2024-07-19 18:26:00 LicLaura kaufman [facility] C[facility] ART[facility] 2024-07-19 18:26:00 Lick [facility] ACUTE C[facility] ARTERIAL 2024-07-19 18:26:00 Lick, [facility] POCT ACT HIGH RANGE 2024-07-19 18:10:00 [facility] 2024-07-19 18:10:00 LicLaura kaufman [facility] AC[facility] C[facility] ARTERIAL 2024-07-19 17:51:00 Lick [facility] ACUTE CARE ARTERIAL 2024-07-19 17:51:00 Lick [facility] POCT ACT HIGH RANGE 2024-07-19 17:49:00 [facility] RANGE 2024-07-19 17:49:00 [facility] POCT ACT HIGH RANGE 2024-07-19 17:25:00 LicLaura [facility]man [facility] POCT ACT HIGH RANGE 2024-07-19 17:25:00 [facility] AC[facility] C[facility] ARTERIAL 2024-07-19 17:21:00 LickMiguel [facility] ACUTE CARE ARTERIAL 2024-07-19 17:21:00 Licaliyah [facility] POCT ACT HIGH RANGE 2024-07-19 17:13:00 [facility]IGH RANGE 2024-07-19 17:13:00 [facility] Sherman [facility] AC[facility] ARTERIAL 2024-07-19 16:56:00 Lick [facility] AC[facility] C[facility] ARTERIAL 2024-07-19 16:56:00 Lick, [facility] POCT ACT HIGH RANGE 2024-07-19 16:52:00 LicLaura kaufman [facility] POCT ACT HIGH RANGE 2024-07-19 16:52:00 Lick, Laura [facility] POCT ACT HIGH RANGE 2024-07-19 16:42:00 Lick, Laura [facility] POCT ACT HIGH RANGE 2024-07-19 16:42:00 Lick, Laura [facility] POCT ACT HIGH RANGE 2024-07-19 16:22:00 Lick, Laura [facility] POCT ACT HIGH RANGE 2024-07-19 16:22:00 Lick, Laura [facility] POCT ACT HIGH RANGE 2024-07-19 16:08:00 Lick, Laura [facility] POCT ACT HIGH RANGE 2024-07-19 16:08:00 Lick, Laura [facility] POCT ACT HIGH RANGE 2024-07-19 15:48:00 Lick, Laura [facility] POCT ACT HIGH RANGE 2024-07-19 15:48:00 Lick, Laura [facility] POCT ACT HIGH RANGE 2024-07-19 15:18:00 Lick, Laura [facility] POCT ACT HIGH RANGE 2024-07-19 15:18:00 Lick, Laura [facility] POCT ACT HIGH RANGE 2024-07-19 14:54:00 LickLaura Jeffrey [facility] POCT ACT HIGH RANGE 2024-07-19 14:54:00 LickLaura U [facility] POCT ACT HIGH RANGE 2024-07-19 14:30:00 LickLaura [facility] POCT ACT HIGH RANGE 2024-07-19 14:30:00 [facility]Laura [facility] PREP[facility] PACK[facility] RBC 2024-07-19 14:01:17 Kaitlynn Minaya [facility] PREPARE PACKED RBC 2024-07-19 14:01:17 Kaitlynn Minaya [facility] ABG+COOX+NA+K+GLU+CA2+ 2024-07-19 13:55:00 LicLaura kaufman [facility] ACUTE CARE ARTERIAL 2024-07-19 13:51:00 Lick, Miguel [facility] ACUTE CARE ARTERIAL 2024-07-19 13:51:00 Daríok, Miguel [facility] POCT VISCOELASTIC TESTING 2024-07-19 13:48:00 Lick [facility] POCT VISCOELASTIC TESTING 2024-07-19 13:48:00 Lick, [facility] [id number] - [place] RPLCMT PROST AORTIC VALVE OPEN XCP HOMOGRF/STENT 2024-07-19 12:43:00 Lick [facility] [id number] [place] RPLCMT AORTIC VALVE OPN W/STENTLESS TISSUE VALVE 2024-07-19 12:43:00 LickLaura [facility] [id number] - [place] CORONARY ARTERY BYP W/VEIN & ARTERY GRAFT 2 VEIN 2024-07-19 12:43:00 Lick [facility] ASCENDING AORTIC ANEURYSM REPAIR 2024-07-19 12:43:00 LickLaura [facility] [id number] - [place] RPLCMT PROST AORTIC VALVE OPEN XCP HOMOGRF/STENT 2024-07-19 12:43:00 Lick [facility] [id number] - [place] RPLCMT AORTIC VALVE OPN W/STENTLESS TISSUE VALVE 2024-07-19 12:43:00 Lick [facility] [id number] - [place] CORONARY ARTERY BYP W/VEIN & ARTERY GRAFT 2 VEIN 2024-07-19 12:43:00 Lick [facility] ASCENDING AORTIC ANEURYSM REPAIR 2024-07-19 12:43:00 Licaliyah [facility] HB ECG ROUTINE & RHYTHM STRIP 2024-07-19 12:22:31 Kaitlynn Minaya [facility] HB ABO GROUPING 2024-07-19 12:13:00 Mary Minaya [facility] HB ABO GROUPING 2024-07-19 12:13:00 Mary Minaya [facility] POCT ACT HIGH RANGE 2024-07-19 11:48:00 Laura Sherman [facility] POCT ACT HIGH RANGE 2024-07-19 11:48:00 Laura Sherman [facility] PHYSICIAN ORDERS 2024-07-01 20:59:45 Doctor Lesley signed, [place] [facility] MAGNESIUM 2024-06-04 11:28:00 [facility] BASIC METABOLIC PANEL (NA, K, CL, CO2, GLUCOSE, BUN, CREATININE, CA) 2024-06-04 11:28:00 Janusz [facility] CBC WITH DIFF 2024-06-04 11:28:00 [facility] URINE CULTURE 2024-06-03 21:20:00 Loc Joshi [facility] MAGNESIUM 2024-06-03 10:13:00 Shefali Rajan [facility] BASIC METABOLIC PANEL (NA, K, CL, CO2, GLUCOSE, BUN, CREATININE, CA) 2024-06-03 10:13:00 Shefali Wilkes [facility] CBC WITH DIFF 2024-06-03 10:13:00 Shefali Rajan [facility] MAGNESIUM 2024-06-02 11:14:00 [facility] METABOLIC PANEL (NA, K, CL, CO2, GLUCOSE, BUN, CREATININE, CA) 2024-06-02 11:14:00 Darline Little [facility] CBC WITH DIFF 2024-06-02 11:14:00 Darline Little [facility] PHOSPHORUS 2024-06-01 22:58:00 Darline Little [facility] INTACT PTH CALCIUM GROUP 2024-06-01 22:58:00 Tamica Little [facility] MAGNESIUM 2024-06-01 10:49:00 Darline Little [facility] BASIC METABOLIC PANEL (NA, K, CL, CO2, GLUCOSE, BUN, CREATININE, CA) 2024-06-01 10:49:00 Hamdan, Darline [facility] CBC WITH DIFF 2024-06-01 10:49:00 Darline Little [facility] BASIC METABOLIC PANEL (NA, K, CL, CO2, GLUCOSE, BUN, CREATININE, CA) 2024-06-01 03:10:00 Vick Piper [facility] CT THORAX WO CONTRAST 2024-05-31 16:28:06 Lizzette Little [facility] TRANSTHORACIC ECHO (TTE) LIMITED W/ DOPPLER, COLOR AND CONTRAST 2024-05-31 13:54:17 Lucy [facility] TRANSTHORACIC ECHO (TTE) LIMITED W/ DOPPLER, COLOR AND CONTRAST 2024-05-31 13:54:17 Wilfredo Ayala [facility] MAGNESIUM 2024-05-31 11:24:00 Steven Tyler [facility] BASIC METABOLIC PANEL (NA, K, CL, CO2, GLUCOSE, BUN, CREATININE, CA) 2024-05-31 11:24:00 Steven Tyler [facility] CBC WITH DIFF 2024-05-31 11:24:00 [facility] MAGNESIUM 2024-05-31 11:24:00 Steven Tyler [facility] BASIC METABOLIC PANEL (NA, K, CL, CO2, GLUCOSE, BUN, CREATININE, CA) 2024-05-31 11:24:00 Steven Tyler [facility] CBC WITH DIFF 2024-05-31 11:24:00 Steven Tyler [facility] HB ECG ROUTINE & RHYTHM STRIP 2024-05-30 23:58:39 [facility] 2024-05-30 21:17:42 Delano Monson [facility] CATH PROCEDURE LOG 2024-05-30 21:17:42 Delano Monson [facility] CARDIAC CATHETERIZATION 2024-05-30 21:01:14 Stephy Dennison i [facility] CARDIAC CATHETERIZATION 2024-05-30 21:01:14 Ste[facility] CARDIAC CATHETERIZATION 2024-05-30 21:01:14 Aroldo Dennison ib[facility]emar [facility] CARDIAC CATHETERIZATION 2024-05-30 21:01:14 Aroldo Dennison ibaldemar [facility] CARDIAC CATHETERIZATION 2024-05-30 21:01:14 Aroldo Dennison ibaldemar [facility] CARDIAC CATHETERIZATION 2024-05-30 21:01:14 Aroldo Dennison ibaldemar [facility] CARDIAC CATHETERIZATION 2024-05-30 21:01:14 [facility] CARDIAC CATHETERIZATION 2024-05-30 21:01:14 Juma patel [facility] PHOSPHORUS 2024-05-30 10:45:00 Wilfredo [facility] MAGNESIUM 2024-05-30 10:45:00 Steven Tyler [facility] BASIC METABOLIC PANEL (NA, K, CL, CO2, GLUCOSE, BUN, CREATININE, CA) 2024-05-30 10:45:00 Steven Tyler [facility] CBC WITH DIFF 2024-05-30 10:45:00 Steven [facility] PHOSPHORUS 2024-05-30 10:45:00 [facility]UM 2024-05-30 10:45:00 Steven Tyler [facility] BASIC METABOLIC PANEL (NA, K, CL, CO2, GLUCOSE, BUN, CREATININE, CA) 2024-05-30 10:45:00 Steven Tyler [facility] CBC WITH DIFF 2024-05-30 10:45:00 Steven Tyler [facility] BLOOD CULTURE SCREEN 2024-05-29 12:31:00 Cristy Cheng [facility] BLOOD CULTURE SCREEN 2024-05-29 12:31:00 Mila Murray [facility] MAGNESIUM 2024-05-29 10:36:00 Steven Tyler [facility] TROPONIN I 2024-05-29 10:36:00 Lucy [facility] FREE T4 2024-05-29 10:36:00 Mila Murray [facility] BASIC METABOLIC PANEL (NA, K, CL, CO2, GLUCOSE, BUN, CREATININE, CA) 2024-05-29 10:36:00 Steven Tyler [facility] IRON PANEL 2024-05-29 10:36:00 Mila Murray [facility] CBC WITH DIFF 2024-05-29 10:36:00 Steven [facility] ABORH CONFIRMATION (LAB ONLY) 2024-05-29 10:36:00 Gisselle Lucas [facility] MAGNESIUM 2024-05-29 10:36:00 Steven [facility] TROPONIN I 2024-05-29 10:36:00 Lucy [facility] FREE T4 2024-05-29 10:36:00 Mila Murray [facility] BASIC METABOLIC PANEL (NA, K, CL, CO2, GLUCOSE, BUN, CREATININE, CA) 2024-05-29 10:36:00 Steven Tyler [facility] IRON PANEL 2024-05-29 10:36:00 Mila Murray [facility] CBC WITH DIFF 2024-05-29 10:36:00 Steven Tyler [facility] ABORH CONFIRMATION (LAB ONLY) 2024-05-29 10:36:00 Gisselle Lucas [facility] URINE CULTURE 2024-05-29 04:31:00 Cristy Cheng [facility] URINE CULTURE 2024-05-29 04:31:00 Cristy Cheng [facility] URINE DRUG (IMMUNOASSAY) - COMPREHENSIVE DRUG SCREEN 2024-05-29 04:30:00 Mila Murray [facility] URINALYSIS 2024-05-29 04:30:00 Gisselle [facility] URINE DRUG (IMMUNOASSAY) - COMPREHENSIVE DRUG SCREEN 2024-05-29 04:30:00 Cristy Cheng [facility] URINALYSIS 2024-05-29 04:30:00 Gisselle [facility] XR CHEST 2 VW 2024-05-28 23:18:00 Cristy Cheng [facility] XR CHEST 2 VW 2024-05-28 23:18:00 Cristy Cheng [facility] EKG-12 LEAD 2024-05-28 22:10:24 Nabor [facility] CT TRAUMA HEAD WO CONTRAST 2024-05-28 20:54:00 Polly brannon [facility] CT TRAUMA CERVICAL SPINE WO CONTRAST 2024-05-28 20:54:00 Nabor [facility] CT TRAUMA HEAD WO CONTRAST 2024-05-28 20:54:00 Polly brannon [facility] CT TRAUMA CERVICAL SPINE WO CONTRAST 2024-05-28 20:54:00 Nabor [facility] CREATINE KINASE 2024-05-28 20:32:00 Stephanie Ghosh [facility] LIPASE 2024-05-28 20:32:00 Shayy [facility] MAGNESIUM 2024-05-28 20:32:00 Stephanie Ghosh [facility] FERRITIN SERUM 2024-05-28 20:32:00 Cristy Cheng [facility] TROPONIN I 2024-05-28 20:32:00 Stephanie Ghosh [facility] THYROID STIMULATING HORMONE 2024-05-28 20:32:00 Cristy Cheng [facility] COMP. METABOLIC PANEL ([id number]) 2024-05-28 20:32:00 Shayy [facility] ETHANOL 2024-05-28 20:32:00 Shayy [facility] CBC WITHOUT DIFF 2024-05-28 20:32:00 Shayy [facility] PROTHROMBIN TIME / INR 2024-05-28 20:32:00 Shayy [facility] ACTIVATED PARTIAL THRMPLAS RADHA 2024-05-28 20:32:00 Shayy [facility] HB ABO GROUPING 2024-05-28 20:32:00 Gisselle Lucas [facility] N-TERMINAL PRO-BNP 2024-05-28 20:32:00 Stephanie Ghosh [facility] CREATINE KINASE 2024-05-28 20:32:00 Stephanie Ghosh [facility] LIPASE 2024-05-28 20:32:00 Shayy [facility] MAGNESIUM 2024-05-28 20:32:00 Stephanie Ghosh [facility] FERRITIN SERUM 2024-05-28 20:32:00 Cristy Cheng [facility] TROPONIN I 2024-05-28 20:32:00 Stephanie Ghosh [facility] THYROID STIMULATING HORMONE 2024-05-28 20:32:00 Cristy Cheng [facility] COMP. METABOLIC PANEL ([id number]) 2024-05-28 20:32:00 Shayy [facility] ETHANOL 2024-05-28 20:32:00 Shayy [facility] CBC WITHOUT DIFF 2024-05-28 20:32:00 Shayy [facility] PROTHROMBIN TIME / INR 2024-05-28 20:32:00 Shayy [facility] ACTIVATED PARTIAL THRMPLAS RADHA 2024-05-28 20:32:00 Shayy [facility] HB ABO GROUPING 2024-05-28 20:32:[address] [facility] N-TERMINAL PRO-BNP 2024-05-28 20:32:00 Stephanie hGosh [facility] HB ECG ROUTINE & RHYTHM STRIP 2024-05-28 20:26:09 Dorian Tomlin [facility] CT ABDOMEN PELVIS WO CONTRAST 2024-05-06 20:36:07 [place], [facility] TROPONIN I 2024-05-06 19:17:00 Casey De La Cruz [facility] BASIC METABOLIC PANEL (NA, K, CL, CO2, GLUCOSE, BUN, CREATININE, CA) 2024-05-06 19:17:00 Kelly [facility] CBC WITH DIFF 2024-05-06 19:17:00 [facility] PROTHROMBIN TIME / INR 2024-05-06 19:17:00 Britni Mendoza [facility] URINALYSIS 2024-05-06 19:17:00 Kelly [facility] N-TERMINAL PRO-BNP 2024-05-06 19:17:00 Casey De La Cruz [facility] CBC WITHOUT DIFF 2024-05-02 10:29:00 Eddi [facility] N-TERMINAL PRO-BNP 2024-05-02 10:29:00 Carla [facility] MAGNESIUM 2024-05-02 10:29:00 Carla [facility] BASIC METABOLIC PANEL (NA, K, CL, CO2, GLUCOSE, BUN, CREATININE, CA) 2024-05-02 10:29:00 [facility]FF 2024-05-01 10:12:00 Ej [facility] BASIC METABOLIC PANEL (NA, K, CL, CO2, GLUCOSE, BUN, CREATININE, CA) 2024-05-01 10:12:00 Ej [facility] CBC WITH DIFF 2024-04-30 10:07:00 Ramon Carmona [facility] MAGNESIUM 2024-04-30 10:07:00 Ramon Carmona [facility] BASIC METABOLIC PANEL (NA, K, CL, CO2, GLUCOSE, BUN, CREATININE, CA) 2024-04-30 10:07:00 Ramon Carmona [facility] BASIC METABOLIC PANEL (NA, K, CL, CO2, GLUCOSE, BUN, CREATININE, CA) 2024-04-30 04:15:00 Genesis Langley [facility] URINALYSIS 2024-04-29 14:55:00 Ramon Carmona [facility] CBC WITH DIFF 2024-04-29 07:12:00 Ramon Carmona [facility] PHOSPHORUS 2024-04-29 07:12:00 Ramon Carmona [facility] MAGNESIUM 2024-04-29 07:12:00 Ramon Carmona [facility] COMP. METABOLIC PANEL (23444) 2024-04-29 07:12:00 Genesis Langley [facility] TRANSTHORACIC ECHO (TTE) COMPLETE W/ CONTRAST 2024-04-28 17:19:00 Ramon Carmona [facility] CBC WITH DIFF 2024-04-28 11:10:00 Ramon Carmona [facility] PHOSPHORUS 2024-04-28 11:10:00 Ramon Carmona [facility] MAGNESIUM 2024-04-28 11:10:00 Ramon Carmona [facility] BASIC METABOLIC PANEL (NA, K, CL, CO2, GLUCOSE, BUN, CREATININE, CA) 2024-04-28 11:10:00 Ramon Carmona [facility] CT ABDOMEN PELVIS WO CONTRAST 2024-04-27 18:59:31 Genesis Langley [facility] CBC WITH DIFF 2024-04-27 09:37:00 Ramon Carmona [facility] PHOSPHORUS 2024-04-27 09:37:00 Ramon Carmona [facility] MAGNESIUM 2024-04-27 09:37:00 Ramon Carmona [facility] BASIC METABOLIC PANEL (NA, K, CL, CO2, GLUCOSE, BUN, CREATININE, CA) 2024-04-27 09:37:00 Ramon Carmona [facility] HEPATITIS B SURFACE ANTIBODY 2024-04-26 20:53:00 Eva Coker [facility] HEPATITIS B SURFACE ANTIGEN 2024-04-26 20:53:00 Eva Coker [facility] HBC ANTIBODY (IGM & IGG) 2024-04-26 20:53:00 Eva Coker [facility] MRSA / MSSA SCREEN BY PCR, JEET 2024-04-26 19:02:00 Genesis Langley [facility] CBC WITH DIFF 2024-04-26 09:26:00 Ramon Carmona [facility] N-TERMINAL PRO-BNP 2024-04-26 09:26:00 Rohan Leon [facility] MAGNESIUM 2024-04-26 09:26:00 Ramon Carmona [facility] BASIC METABOLIC PANEL (NA, K, CL, CO2, GLUCOSE, BUN, CREATININE, CA) 2024-04-26 09:26:00 Ramon Carmona [facility] IR CENTRALLY INSERTED DEVICE TUNNELED 5 OR OLDER NO PORT/PUMP 2024-04-25 20:40:00 Travis Jefferson [facility] CBC WITH DIFF 2024-04-25 09:56:00 Travis Jefferson [facility] MAGNESIUM 2024-04-25 09:56:00 Travis Jefferson [facility] PROSTATIC SPECIFIC ANTIGEN 2024-04-25 09:56:00 Ramon Carmona [facility] TROPONIN I 2024-04-25 09:56:00 Rohan Leon [facility] BASIC METABOLIC PANEL (NA, K, CL, CO2, GLUCOSE, BUN, CREATININE, CA) 2024-04-25 09:56:00 Travis Jefferson [facility] PROTEIN CREAT RATIO URINE RANDOM 2024-04-25 08:26:00 Eva Coker [facility] N-TERMINAL PRO-BNP 2024-04-24 11:58:00 Eddi Aguirre [facility] PHOSPHORUS 2024-04-24 11:58:00 Eddi Aguirre [facility] MAGNESIUM 2024-04-24 11:58:00 Carla [facility] TROPONIN I 2024-04-24 11:58:00 Lizzie Alvarez [facility] BASIC METABOLIC PANEL (NA, K, CL, CO2, GLUCOSE, BUN, CREATININE, CA) 2024-04-24 11:58:00 [facility] LIPID PANEL (50044)(TOTAL CHOLESTEROL, TRIGLYCERIDES, HDL) 2024-04-24 11:58:00 Eddi Aguirre [facility] US RETROPERITONEAL COMPLETE 2024-04-24 00:09:00 Eddi Aguirre [facility] CREATININE, URINE RANDOM 2024-04-23 22:00:00 Dalton Aguirre [facility] SODIUM, URINE RANDOM 2024-04-23 22:00:00 Scarlet Aguirre i [facility] URINALYSIS 2024-04-23 17:55:00 Aliyah Rasmussen [facility] XR CHEST 1 VW 2024-04-23 17:11:00 Aliyah Rasmussen [facility] CBC WITH DIFF 2024-04-23 17:00:00 Aliyah Rasmussen [facility] GLYCOSYLATED HEMOGLOBIN (A1C) 2024-04-23 17:00:00 [facility] N-TERMINAL [facility]-BNP 2024-04-23 17:00:00 Aliyah Rasmussen [facility] MAGNESIUM 2024-04-23 17:00:[address] [facility] TROPONIN I 2024-04-23 17:00:[address] [facility] THYROID STIMULATING HORMONE 2024-04-23 17:00:00 Eddi Aguirre [facility] COMP. METABOLIC PANEL (45737) 2024-04-23 17:00:00 Aliyah Rasmussen [facility] HB ECG ROUTINE & RHYTHM STRIP 2024-04-23 16:44:39 Aliyah Rasmussen [facility] Tonsillectomy [facility] Encounters Start Date/Time End Date/Time Encounter Type Admission Type Attending [facility] Care Facility Care Department Encounter ID Source 2021-06-30 11:17:12 [facility] [id number] [facility] 2021-06-30 11:03:[address] [facility] [id number] [facility] 2024-09-12 13:45:00 2024-09-12 13:45:00 Outpatient R [facility] [id number] [facility] 2024-09-09 11:30:00 2024-09-09 11:30:00 Outpatient R MARYJANE ROBERTS HAIDER [facility] [id number] [facility] 2024-09-05 00:00:00 2024-09-06 15:31:21 [facility] 1.2.840.114 350.1.13.10 4.2.7.2.686 [id number] [facility] 2024-09-06 11:30:00 2024-09-06 12:13:22 [id number] 2024-09-06 11:30:00 2024-09-06 12:13:22 [facility] 1.2.840.114 350.1.13.10 4.2.7.2.686 [id number] [facility] 2024-08-31 00:00:00 2024-09-05 10:01:45 Telephone Laura Sherman [facility] 1.2.840.114 350.1.13.10 4.2.7.2.686 [id number] [facility] 2024-09-02 00:00:00 2024-09-04 17:03:37 [facility] 1.2.840.114 350.1.13.10 4.2.7.2.686 [id number] [facility] 2024-08-30 00:00:00 2024-08-30 14:32:25 Telephone [place] Nicole [facility] PRIMARY [facility] SPECIALTY CARE 1.2840.114 350.1.13.10 4.2.7.2.686 [id number] [facility] 2024-07-18 00:00:00 2024-08-24 18:20:46 Patient Secure Msg Doctor Unassigned, [place] Doctor Unassigned, [place] [facility] 1.2840.114 350.1.13.10 4.2.7.2.686 [id number] [facility] 2024-08-19 13:30:00 2024-08-19 13:30:00 Outpatient R [facility] [id number] [facility] 2024-07-19 05:23:00 2024-08-07 17:50:00 Hospital Encounter Laura Sherman [facility] 1.2840.114 350.1.13.10 4.2.7.2.686 [id number] [facility] 2024-07-19 05:23:00 2024-08-07 17:50:00 Inpatient R LAURA SHERMAN [facility] [id number] [facility] 2024-08-06 00:00:00 2024-08-06 14:57:57 Telephone Clay [facility] PRIMARY AND SPECIALTY CARE 1.2840.114 350.1.13.10 4.2.7.2.686 [id number] [facility] 2024-08-05 11:30:00 2024-08-05 11:30:00 Outpatient R BEBE ALEX [facility] [id number] [facility] 2024-06-28 00:00:00 2024-08-03 18:19:08 Patient Secure g Kaitlynn Minaya [facility] ([facility]) 1.2.840.114 350.1.13.10 4.2.7.2.686 [id number] [facility] 2024-07-03 00:00:00 2024-08-03 18:14:14 Patient Secure Msg Doctor Unassigned, [place] Doctor Unassigned, [place] [facility] 1.2.840.114 350.1.13.10 4.2.7.2.686 [id number] [facility] 2024-07-27 08:39:03 2024-07-27 08:39:03 Anesthesia Event Norma March [facility] 1.2.840.114 350.1.13.10 4.2.7.2.686 [id number] [facility] 2024-07-01 00:00:00 2024-07-20 06:14:33 Orders Only Doctor Unassigned, [place] Doctor Unassigned, [place] [facility] 1.2.840.114 350.1.13.10 4.2.7.2.686 [id number] [facility] 2024-07-19 06:45:00 2024-07-19 15:21:00 Surgery Laura Sherman [facility] 1.2.840.114 350.1.13.10 4.2.7.2.686 [id number] [facility] 2024-07-19 00:00:00 2024-07-19 11:14:53 Telephone [place] Nicole [facility] PR[facility]ARE 1.2.840.114 350.1.13.10 4.2.7.2.686 [id number] [facility] 2024-07-17 16:00:00 2024-07-17 16:34:55 Outpatient MARIA C RICARDO KHALED [facility] [id number] [facility] 2024-07-17 16:00:00 2024-07-17 16:34:55 Office Visit Wanda Maria C Fagan [facility] PRIMARY CARE PAVILLION 1.2840.114 350.1.13.10 4.2.7.2.686 [id number] [facility] 2024-07-15 14:30:00 2024-07-15 15:14:57 Outpatient R SHERIN ASH [facility] [id number] [facility] 2024-07-15 14:30:00 2024-07-15 15:14:57 Office Visit Riana Westfall Nadia Shahbaz [facility] PRIMARY CARE PAVILLION 1.0.114 350.1.13.10 4.2.7.2.686 [id number] [facility] 2024-07-11 00:00:00 2024-07-12 10:33:39 Case Management Kaitlynn Minaya [facility] 1..114 350.1.13.10 4.2.7.2.686 [id number] [facility] 2024-07-12 00:00:00 2024-07-12 10:32:49 Telephone Kaitlynn Minaya [facility] ([facility]) 1..114 350.1.13.10 4.2.7.2.686 [id number] [facility] 2024-07-09 10:00:00 2024-07-09 10:15:00 Portable Pinch Riveter Visit Pob, [facility] Kaitlynn Minaya, [facility] 1.2840.114 350.1.13.10 4.2.7.2.686 [id number] [facility] 2024-07-09 10:00:00 2024-07-09 10:00:00 Outpatient R KAITLYNN MINAYA [facility] [id number] [facility] 2024-07-04 00:00:00 2024-07-04 10:34:45 Telephone Clay [facility] PRIMARY AND SPECIALTY CARE 1.2.840.114 350.1.13.10 4.2.7.2.686 [id number] [facility] 2024-07-03 00:00:00 2024-07-03 12:14:25 Telephone Kaitlynn Minaya Laya [facility] ([facility]) 1.2.840.114 350.1.13.10 4.2.7.2.686 [id number] [facility] 2024-07-01 00:00:00 2024-07-02 09:47:27 Telephone Clay [facility] PRIMARY AND SPECIALTY CARE 1.2.840.114 350.1.13.10 4.2.7.2.686 [id number] [facility] 2024-07-02 09:45:00 2024-07-02 09:45:00 Office Visit Clay [facility] PRIMARY AND SPECIALTY CARE 1.2.840.114 350.1.13.10 4.2.7.2.686 [id number] [facility] 2024-07-02 09:45:00 2024-07-02 09:41:20 Outpatient R CLAY [facility] [id number] [facility] 2024-07-01 12:00:00 2024-07-01 12:15:00 Portable Pinch Riveter Visit Maki, [facility] Laura Sherman, [facility] 1.2840.114 350.1.13.10 4.2.7.2.686 [id number] [facility] 2024-07-01 12:00:00 2024-07-01 12:00:00 Outpatient R LAURA SHERMAN [facility] [id number] [facility] 2024-06-26 00:00:00 2024-06-27 08:47:34 Telephone Clay [facility] PRIMARY AND SPECIALTY CARE 1.2.840.114 350.1.13.10 4.2.7.2.686 [id number] [facility] 2024-06-24 00:00:00 2024-06-24 10:57:37 Nurse Triage Linda Clark Chessica T [facility] 1.2.840.114 350.1.13.10 4.2.7.2.686 [id number] [facility] 2024-06-21 00:00:00 2024-06-21 15:55:23 Telephone [place] Nicole [facility] PRIMARY [facility] SPECIALTY CARE 1.2.840.114 350.1.13.10 4.2.7.2.686 [id number] [facility] 2024-06-21 13:30:00 2024-06-21 14:00:00 Nurse Visit Nurse, [facility] Surgery [place] Nurse, [facility] Surgery [facility] PRIMARY AND SPECIALTY CARE 1.2.840.114 350.1.13.10 4.2.7.2.686 [id number] [facility] 2024-06-21 13:30:00 2024-06-21 13:30:00 Outpatient R KINGSTON NICOLE [facility] [id number] [facility] 2024-06-19 11:15:00 2024-06-19 11:15:00 Outpatient R [facility] [id number] [facility] 2024-05-09 00:00:00 2024-06-15 18:21:39 Patient Secure Msg Doctor Unassigned, [place] Doctor Unassigned, [place] [facility] ([facility] 1.2.840.114 350.1.13.10 4.2.7.2.686 [id number] [facility] 2024-06-14 10:00:00 2024-06-14 10:26:[address] [facility] [id number] [facility] 2024-06-14 10:00:00 2024-06-14 10:26:39 Office Visit Isai [facility] PRIMARY CARE PAVILLION 1.2.840.114 350.1.13.10 4.2.7.2.686 [id number] [facility] 2024-06-13 00:00:00 2024-06-13 11:14:39 Prep For Surgery Kaitlynn Minaya [facility] 1.2.840.114 350.1.13.10 4.2.7.2.686 [id number] [facility] 2024-06-10 15:40:00 2024-06-10 16:58:50 Outpatient R SHERIN ASH [facility] [id number] [facility] 2024-06-10 15:40:00 2024-06-10 16:58:50 Office Visit Riana Westfall Nadia Shahbaz [facility] PRIMARY CARE PAVILLION 1.2.840.114 350.1.13.10 4.2.7.2.686 [id number] [facility] 2024-06-06 00:00:00 2024-06-10 10:31:55 Telephone [place] Nicole [facility] PRIMARY AND SPECIALTY CARE 1.2.840.114 350.1.13.10 4.2.7.2.686 [id number] [facility] 2024-06-07 00:00:00 2024-06-07 13:36:35 Telephone Laura Sherman [facility] 1.2.840.114 350.1.13.10 4.2.7.2.686 [id number] [facility] 2024-06-06 00:00:00 2024-06-06 10:24:59 Transition of Care Sean Read Michele A SHEARN MOODY ABBY 1.2.840.114 350.1.13.10 4.2.7.2.686 [id number] [facility] 2024-05-28 14:18:00 2024-06-04 18:58:00 Inpatient X JIM MIKE [facility] [id number] [facility] 2024-05-28 14:18:00 2024-06-04 18:58:00 Hospital Encounter Stephanie Ghosh, Bessy Monson, Jim Hernadez [facility] 1.2.840.114 350.1.13.10 4.2.7.2.686 [id number] [facility] 2024-05-30 13:05:00 2024-05-30 14:05:00 Surgery Myron Anderson [facility] 1.2.840.114 350.1.13.10 4.2.7.2.686 [id number] [facility] 2024-05-22 00:00:00 2024-05-23 10:10:13 Telephone [place] [facility] 1.2.840.114 350.1.13.10 4.2.7.2.686 [id number] [facility] 2024-05-23 00:00:00 2024-05-23 10:00:51 [facility] 1.2.840.114 350.1.13.10 4.2.7.2.686 [id number] [facility] 2024-05-22 15:00:00 2024-05-22 16:00:00 Office Visit Clay [facility] 1.2.840.114 350.1.13.10 4.2.7.2.686 [id number] [facility] 2024-05-22 15:00:00 2024-05-22 15:00:00 Outpatient R CLAY [facility] [id number] [facility] 2024-05-20 00:00:00 2024-05-20 07:43:08 Telephone Clay [facility] 1.2.840.114 350.1.13.10 4.2.7.2.686 [id number] [facility] 2024-05-14 13:00:00 2024-05-14 14:27:27 Outpatient R CLAY [facility] [id number] [facility] 2024-05-14 13:00:00 2024-05-14 14:27:27 Office Visit Clay [facility] PRIMARY AND SPECIALTY CARE 1.2.840.114 350.1.13.10 4.2.7.2.686 [id number] [facility] 2024-05-07 00:00:00 2024-05-08 08:19:04 Telephone Clay [facility] PRIMARY AND SPECIALTY CARE 1.2.840.114 350.1.13.10 4.2.7.2.686 [id number] [facility] 2024-05-06 00:00:00 2024-05-07 08:26:32 Transition of Sean Stevens Michele A SHEARN KAMILA MORA 1.2.840.114 350.1.13.10 4.2.7.2.686 [id number] [facility] 2024-05-06 12:14:00 2024-05-06 17:59:00 Emergency X CASEY DE LA CRUZ KULWANT, CASEY DE LA CRUZ, [facility] E[facility] [id number] [facility] 2024-05-06 12:14:00 2024-05-06 17:59:00 Emergency Casey De La Cruz [facility] ([facility] 1.2.840.114 350.1.13.10 4.2.7.2.686 [id number] [facility] 2024-04-23 10:33:00 2024-05-02 16:16:00 Inpatient X [facility]OHAN [facility]ON [facility] [id number] [facility] 2024-04-23 10:33:00 2024-05-02 16:16:00 Hospital Encounter Aliyah Rasmussen, Rohan Pendleton [facility] 1.2.840.114 350.1.13.10 4.2.7.2.686 [id number] [facility] 2021-08-24 00:00:00 2021-08-24 00:00:00 [facility] [id number] 2020-02-03 10:32:00 2020-02-03 10:32:00 Outpatient [facility] [id number] [facility] 2019-11-27 15:25:00 2019-11-27 15:25:00 Outpatient [facility] [id number] [facility] 2019-11-08 14:00:00 2019-11-08 14:00:00 Outpatient [facility] [id number] [facility] 2019-11-08 14:00:00 2019-11-08 14:00:00 Outpatient [facility] [id number] [facility] 2019-11-07 10:38:00 2019-11-07 10:38:00 Outpatient [facility] [id number] [facility] 2019-11-07 08:31:00 2019-11-07 08:31:00 Outpatient [facility] [id number] [facility] 2019-07-01 14:00:00 2019-07-01 14:00:00 Outpatient [facility] [id number] [facility] 2015-12-03 16:01:00 2015-12-04 04:59:00 Outpt Diag Services [facility] [place] [id number] Ivonne Alvarez 2015-11-15 05:06:00 2015-11-16 18:00:00 Inpatient [facility] [id number] Ivonne Alvarez Results Test Description Test Time Test Comments Results Result Comments Source XR Chest 1 vw 5 21:57:47 EXAM: XR CHEST 1 VW COMPARISON: Same day chest radiograph HISTORY: 79 years old Male with post pull FINDINGS: Image quality: The right costophrenic angle is not completely imaged. Interval removal of right-sided chest tube. The right IJ catheter tipprojects over the cavoatrial junction. Lungs: Slightly increased mid to lower lung hazy opacities as well as leftlower lung peribronchial opacities. No pneumothorax. Heart/Mediastinum: Stable mildly enlarged cardiomediastinal silhouette.Aortic arch calcifications. Bones and soft tissues: No focal osseous lesions. Sternotomy wires are wellaligned and intact. [facility] XR Chest 1 vw 5 20:11:08 EXAM: XR CHEST 1 VW HISTORY: 79 years-old Male; post water seal COMPARISON: CXR dated 08/06/2024 FINDINGS: Lines/Devices: Unchanged position of right IJ venous catheter and rightchest tube. Lungs: The lung volumes are underinflated. Grossly unchanged bilateralperihilar and basilar patchy opacities. Stable appearance of small leftpleural effusion. No pneumothorax. Heart/Mediastinum: The cardiomediastinal silhouette remains enlarged.Calcification of the aortic arch is seen. Bones and soft tissues: No acute osseous findings are detected. Sternotomywires appear intact and unchanged in position. [facility] MOD BARIUM SWALLOW, (COOKIE) 4 17:57:31 EXAM: FL MODIFIED BARIUM SWALLOW HISTORY: 79 years-old; Male; aspiration TECHNIQUE: Barium of varying consistencies of from solid through thinliquid were administered to the patient during fluoroscopy. The study wasperformed with the speech pathologist. COMPARISON: None [facility] XR Chest 1 4 14:31:04 XR CHEST 1 VW COMPARISON: 08/04/2024 Ordering provider: LAURA SHERMAN CLINICAL INDICATIONS: CT to waterseal TECHNIQUE: Appropriate radiographic technique and conforming to ALARA FINDINGS: ? Right jugular dialysis catheter unchanged in position. Small left pleural effusion and left basilar subsegmental atelectasis. Noconsolidated infiltrate in the chest otherwise unchanged. [facility] XR Chest 1 3 14:57:44 EXAM: XR CHEST 1 VW COMPARISON: 08/02/2024 HISTORY:79 years old, Male ?with assess to remove pigtail . [facility] XR Chest 1 2 17:52:53 History: R pigtail . Exam: XR CHEST 1 VW Date: 08/04/2024 4:00 AM Ordering provider: LAURA SHERMAN Comparison: 08/03/2024. Findings: Frontal view of the chest is obtained. Right IJ catheter terminates at the cavoatrial junction. Pigtail catheteroverlies the right lower chest in similar position. There are sternotomywires and CABG clips. The cardiac silhouette is moderately enlarged. Mild bilateral perihilar andbibasilar opacities are similar on the prior. Small left pleural effusionis noted. No visible pneumothorax. [facility]:55* Test Item Value Reference Range Interpretation Comme nts PHOSPHORUS (test code = 9748907624) 3.8 mg/dL 2.5-5.0 Lab Interpretation (test cod e = 56192-9) [facility]:56:55* Test Item Value Reference Range Interpretation Comme nts MAGNESIUM (test code = [id number]) 1.8 mg/dL 1.7-2.4 Lab Interpretation (test cod e = 59570-8) [facility] [id number] 21:02:04* Test Item Value Reference Range Interpretation Comme nts Blood Culture-Aerobic (test code = 96211-4) No organisms isolated No growth Previous preliminary verified result was Order in Process on 07/28/2024 at 1801 CSTPrevious preliminary verified result was No growth at 24 hours on 07/29/2024 at 1501 CSTPrevious preliminary verified result was No growth at 48 hours on 07/30/2024 at 1501 CSTPrevious preliminary verified result was No growth at 72 hours on 07/31/2024 at 1501 PATIENT 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 Blood Culture-Anaerobic (test code = 73408-9) No organisms isolated No growth Previous preliminary verified result was Order in Process on 07/28/2024 at 1801 CSTPrevious preliminary verified result was No growth at 24 hours on 07/29/2024 at 1501 CSTPrevious preliminary verified result was No growth at 48 hours on 07/30/2024 at 1501 CSTPrevious preliminary verified result was No growth at 72 hours on 07/31/2024 at 1501 PATIENT SAFETY OFFICER Lab Interpretation (test code = 20588-1) [facility] [id number] 20:09:20EXAM: XR CHEST 1 VW COMPARISON: 07/25/2024 HISTORY: sp left pigtail removalCit[facility] CenterXR Chest 1 [id number] 15:10:49EXAM: XR CHEST 1 VW COMPARISON: Multiple prior studies, most recently 08/01/2024 HISTORY: pigtails for pleural effusions FINDINGS: Lines/Tubes: Bilateral pigtail pleural drains again seen. Right subclaviancentral venous catheter tip at cavoatrial junction. Lungs: Similar retrocardiac consolidative opacity. At least moderate sizeleft pleural effusion is grossly unchanged from prior study. Rightcostophrenic angle appears clear, similar to prior. No pneumothorax Heart/Mediastinum: The cardiac silhou ette is enlarged. Bones and soft tissues: No acute findings are detected. Postsurgicalchanges of sternotomy.[facility] Chest 1 [id number] 10:33:12Study: Single view chest. Ordering Physician: MICHAEL SHERMAN Date: 08/01/2024 4:00 AM History:Pleural effusions COMPARISON: 07/31/2024 Findings: Single frontal view chest demonstrates a normal heart size.Bilateral pleural catheters are present. A layering left pleural effusionpersists with left basilar atelectasis. No infiltrate or pneumothorax ispresent. The right subclavian catheter terminates over the distal superiorvena cava.[facility] Chest 1 [id number] 14:41:14ORDERING PHYSICIAN: LAURA SHERMAN. HISTORY: desaturation TECHNIQUE: AP COMPARISON: 07/30/2024 FINDINGS:Lungs: ?Sternotomy wires are present. There is a right IJ line terminatingat the mid right atrium. A right chest tube is present. Left basilarconsolidation is stable. Decreased interstitial prominence is noted. Pleura: ?A small left pleural effusion is present. There is nopneumothorax. Mediastinum/Susan: ?No masses or adenopathy. Heart: ?The heart is not enlarged. Other: ?No acute osseous abnormality is seen. There are sternotomy wires.[facility] GLUCOSE (AUTOMATED)2024-07-30 22:07:29* Test Item Value Reference Range Interpretation Comme nts POCT GLU (test code = 1337502963) 129 mg/dL 70-110 H Lab Interpretation (test cod e = 73539-2) Abnormal [facility] GLUCOSE (AUTOMATED)2024-07-30 17:35:26* Test Item Value Reference Range Interpretation Comme nts POCT GLU (test code = 0682736727) 120 mg/dL 70-110 H Lab Interpretation (test cod e = 64218-7) Abnormal [facility] Chest 1 [id number] 15:05:18EXAM: XR CHEST 1 VW, XR CHEST 1 VW, XR CHEST 1 VW COMPARISON: CT Chest 07/26/24, CXR 07/27/24 HISTORY: confirming hemodialysis line location FINDINGS: [id number]: The right IJ line tip projects over the right atrium. A pleural drainagecatheter projects over the right lower lung field. Asymmetric lung volumes. Near complete opacification of the lefthemithorax, new from the most recent prior examination and consistent witha large pleural effusion with adjacent compressive atelectasis. The cardiac silhouette is enlarged, unchanged. Changes of aortic valvereplacement. Calcified aorta. No acute osseous abnormality. Median sternotomy wires are intact. [id number]: Interval left pleural drainage catheter placement. Mild diffuse interstitial opacities. Marked decrease in size of leftpleural effusion buta moderate layering effusion persists. Improving leftmid to lower lung atelectasis. The remainder of the chest radiographic findings as well as supportapparatus positioning are grossly unchanged fromthe most recent prior examas described above.[facility]2024-[facility]-30 13:22:59* Test Item Value Reference Range Interpretation Comme nts POCT GLU (test code = 1151245967) 134 mg/dL 70-110 H Lab Interpretation (test cod e = 77039-4) [facility]normal [facility] CenterVancomycin Random [id number] 11:55:35* Test Item Value Reference Range Interpretation Comme nts VANCO RANDOM (test code = 24036-8) 14.8 ug/mL [facility] CenterMagnesium2025-02-25 11:50:31* Test Item Value Reference Range Interpretation Comme nts MAGNESIUM (test code = 7587272624) 2.2 mg/dL 1.7-2.4 Lab Interpretation (test cod e = 88018-4) Normal [facility] CenterPhosphorus2025-02-25 11:50:31* Test Item Value Reference Range Interpretation Comme nts PHOSPHORUS (test code = 6283407257) 3.3 mg/dL 2.5-5.0 Lab Interpretation (test cod e = 07978-5) [facility] CenterBasic Metabolic Panel (NA, K, CL, CO2, GLUCOSE, BUN, CREATININE, CA)2024-07-30 11:50:31* Test Item Value Reference Range Interpretation Comme nts NA (test code = 8596911329) 134 mmol/L 135-145 L K (test code = 2030028521) 4.4 mmol/L 3.5-5.0 CL (test code = 5306489467) 105 mmol/L 98-108 CO2 TOTAL (test code = 4003044872) 22 mmol/L 23-31 L AGAP (test code = 0706306815) 7 2-16 BUN (test code = 8268614809) 48 mg/dL 7-23 H GLUCOSE (test code = 2720875946) 101 mg/dL 70-110 CREATININE (test code = 2160-0) 3.16 mg/dL 0.60-1.25 H CALCIUM (test code = 6726777850) 7.7 mg/dL 8.6-10.6 L eGFR (test code = 00644-4) 19.1 mL/min/1.73m2 CKD-EPI eGFR (2020). Assuming creatinine has been stable day-to-day for at least three months, the eGFR indicates Category G4 (15 - 29 mL/min/1.73 m2) Lab Interpretation (test code = 15750-5) Abnormal [facility] CenterCb without [id number] 10:45:01* Test Item Value Reference Range Interpretation Comme nts WBC (test code = 6690-2) 11.08 4.20-10.70 H RBC (test code = 789-8) 2.66 4.26-5.52 L HGB (test code = 718-7) 7.9 g/dL 12.2-16.4 L HCT (test code = 4544-3) 23.4 % 38.4-49.3 L MCH (test code = 785-6) 29.7 pg 26.1-32.7 MCV (test code = 787-2) 88.0 fL 81.7-95.6 MCHC (test code = 786-4) 33.8 g/dL 31.2-35.0 PLT (test code = 777-3) 315 150-328 MPV (test code = 88697-1) 9.2 fL 9.8-13.0 L RDW-CV (test code = 788-0) 14.6 % 12.1-15.4 RDW-SD (test code = 84219-9) 46.5 fL 38.5-51.6 NRBC x10^3 (test code = 5715545411) See_Comment [Automated messa ge] The system which generated this result transmitted reference range: 10*3/?L. The reference range was not used to interpret this result as normal/abnormal. NRBC/100 WBC (test code = 8809843451) 0.0 0.0-10.0 IPF % (test code = 3661331992) Lab Interpretation (test code = 16056-8) Abnormal [facility] GLUCOSE (AUTOMATED)2024-07-29 21:36:29* Test Item Value Reference Range Interpretation Comme nts POCT GLU (test code = 8480272913) 89 mg/dL 70-110 Lab Interpretation (test cod e = 53327-3) [facility] 1 [id number] 20:34:25EXAM: XR CHEST 1 VW COMPARISON: CT chest dated 07/26/2024 HISTORY: Increased oxygen requirements andnew fever FINDINGS: The right IJ line tip projects over the right atrium. Mildly improved pulmonaryaeration. Interval development of a new focalairspace opacity in the left mid to lower lung zone concerning fordeveloping infection. Bibasilar opacity likely reflecting atelectasis inthe setting of moderate sized bilateral pleural effusions. The cardiac silhouette is enlarged, unchanged. Calcified aorta. No acute osseous abnormality. Median sternotomy wires are intact and wellaligned.[facility] 1 [id number] 20:29:59EXAM: XR CHEST 1 VW COMPARISON: Same day chest radiograph [facility]ISTORY[facility] 2024-07-29 18:01:26* Test Item Value Reference Range Interpretation Comme [facility] POCT GLU (test code = 2607633504) 103 mg/dL 70-110 Lab Interpretation (test cod e = 30031-5) [facility] 1 [id number] 16:13:17EXAM: XR CHEST 1 VW COMPARISON: 07/28/2024 HISTORY: pleural effusion FINDINGS: Lines/Tubes: Bilateral pleural drains. Right IJ central venous catheterwith tip at cavoatrial junction. Lungs: Small right and moderate left pleural effusions, grossly unchangedin size. No pneumothorax. Left lung base opacity likely compressiveatelectasis. Heart/Mediastinum: The cardiac silhouette appears enlarged. Bones and soft tissues: No acute findings are detected.[facility] CenterN-Terminal Qcw-Ucz7945-35-24 15:53:49* Test Item Value Reference Range Interpretation Comme nts NT-proBNP (test code = 63277-2) 46141 pg/mL <=125 H ANITA (test code = ANITA) Positive: Heart Failure Likely Lab Interpretation (test code = 49766-3) Abnormal [facility] GLUCOSE (AUTOMATED)2024-07-29 13:56:28* Test Item Value Reference Range Interpretation Comme [facility] POCT GLU (test code = 3423811284) 55 mg/dL 70-110 L Lab Interpretation (test cod e = 44257-8) Abnormal [facility] GLUCOSE (AUTOMATED)2024-07-29 13:56:28* Test Item Value Reference Range Interpretation Comme [facility] POCT GLU (test code = 3213662169) 91 mg/dL 70-110 Lab Interpretation (test cod e = 91366-8) Normal [facility] CenterVancomycin Random Beszr0820-96-12 11:55:54* Test Item Value Reference Range Interpretation Comme nts VANCO RANDOM (test code = 75759-9) 16.9 ug/mL [facility]AC Panel 20 + Lactic Ciyu2666-41-52 11:52:37* Test Item Value Reference Range Interpretation Comme nts PH (test code = 2) 7.39 7.35-7.45 PCO2 (test code = 0746892519) 34 35-45 L PO2 (test code = 7037016143) 109 80-100 H HCO3 (test code = 0421740054) 20 22-26 L BE (test code = 2539540055) -3.8 -3.0-3.0 L THB (test code = 1591024294) Value not showin g %O2HB (test code = 7572719754) Value not showin g %COHB ART (test code = 2379924942) Value not showin g %METHB ART (test code = 8609381732) Value not showin g VOL%O2 ART (test code = 8986541119) Value not showin g NA (test code = 4708169810) 134 mmol/L 135-145 L K+ (test code = 3469856883) 4.1 mmol/L 3.5-5.0 AC CA IONZ (test code = 0405812949) 4.70 mg/dL 4.50-5.30 GLUCOSE (test code = 2120956245) 77 mg/dL 70-110 LACTIC ACID (test code = 2858121474) 1.02 mmol/L 0.50-2.20 COOXERR Lab Interpretation (test code = 55082-1) [facility]normal [facility] CenterMagnesium2025-02-24 11:50:32* Test Item Value Reference Range Interpretation Comme nts MAGNESIUM (test code = 3827376386) 2.2 mg/dL 1.7-2.4 Lab Interpretation (test cod e = 94603-1) Normal [facility] CenterPhosphorus2025-02-24 11:50:32* Test Item Value Reference Range Interpretation Comme nts PHOSPHORUS (test code = 3783874790) 3.7 mg/dL 2.5-5.0 Lab Interpretation (test cod e = 83359-1) [facility] (NA, K, CL, CO2, GLUCOSE, BUN, CREATININE, CA)2024-07-29 11:50:31* Test Item Value Reference Range Interpretation Comme nts NA (test code = 6421726429) 136 mmol/L 135-145 K (test code = 1631833106) 4.3 mmol/L 3.5-5.0 CL (test code = 1652333800) 105 mmol/L 98-108 CO2 TOTAL (test code = 8840651321) 21 mmol/L 23-31 L AGAP (test code = 4764644349) 10 2-16 BUN (test code = 4801713394) 32 mg/dL 7-23 H GLUCOSE (test code = 6837485565) 82 mg/dL 70-110 CREATININE (test code = 2160-0) 2.68 mg/dL 0.60-1.25 H CALCIUM (test code = 0385622349) 7.8 mg/dL 8.6-10.6 L eGFR (test code = 14160-4) 23.3 mL/min/1.73m2 CKD-EPI eGFR (2020). Assuming creatinine has been stable day-to-day for at least three months, the eGFR indicates Category G4 (15 - 29 mL/min/1.73 m2) Lab Interpretation (test code = 93286-6) Abnormal [facility] CenterCbc without [id number] 10:54:27* Test Item Value Reference Range Interpretation Comme nts WBC (test code = 6690-2) 8.97 4.20-10.70 RBC (test code = 789-8) 2.52 4.26-5.52 L HGB (test code = 718-7) 7.4 g/dL 12.2-16.4 L HCT (test code = 4544-3) 22.1 % 38.4-49.3 L MCH (test code = 785-6) 29.4 pg 26.1-32.7 MCV (test code = 787-2) 87.7 fL 81.7-95.6 MCHC (test code = 786-4) 33.5 g/dL 31.2-35.0 PLT (test code = 777-3) 234 150-328 MPV (test code = 21220-4) 9.0 fL 9.8-13.0 L RDW-CV (test code = 788-0) 14.6 % 12.1-15.4 RDW-SD (test code = 10518-0) 47.2 fL 38.5-51.6 NRBC x10^3 (test code = 1256955068) See_Comment [Automated messa ge] The system which generated this result transmitted reference range: 10*3/?L. The reference range was not used to interpret this result as normal/abnormal. NRBC/100 WBC (test code = 4634407438) 0.0 0.0-10.0 IPF % (test code = 0179719462) Lab Interpretation (test code = 09838-3) [facility]normal [facility] 20 + Lactic [id number] 01:40:25* Test Item Value Reference Range Interpretation Comme nts PH (test code = 2) 7.41 7.35-7.45 PCO2 (test code = 8954675758) 33 35-45 L PO2 (test code = 6011553970) 113 80-100 H HCO3 (test code = 0999483751) 20 22-26 L BE (test code = 3203386484) -3.6 -3.0-3.0 L THB (test code = 3182209016) 10.5 g/dL 13.5-18.0 L %O2HB (test code = 2925418382) 97.5 % 94.0-99.0 %COHB ART (test code = 3573399474) 0.2 % 0.0-1.5 %METHB ART (test code = 0143246484) 0.1 % 0.4-1.5 L VOL%O2 ART (test code = 5641682479) 14.6 % 15.0-23.0 L NA (test code = 4079210096) 133 mmol/L 135-145 L K+ (test code = 9202519274) 4.2 mmol/L 3.5-5.0 AC CA IONZ (test code = 7945548649) 4.80 mg/dL 4.50-5.30 GLUCOSE (test code = 5364180070) 75 mg/dL 70-110 LACTIC ACID (test code = 1885791633) 0.74 mmol/L 0.50-2.20 Lab Interpretation (test cod e = 51562-1) [facility]2024-07-28 22:29:59* Test Item Value Reference Range Interpretation Comme [facility] POCT GLU (test code = 8069930922) 83 mg/dL 70-110 Lab Interpretation (test cod e = 18941-9) Normal [facility] 20 + Lactic [id number] 21:10:02* Test Item Value Reference Range Interpretation Comme [facility] PH (test code = 2) 7.40 7.35-7.45 PCO2 (test code = 2903817633) 36 35-45 PO2 (test code = 3534541022) 141 80-100 H HCO3 (test code = 5947689242) 22 22-26 BE (test code = 4464129560) -2.8 -3.0-3.0 THB (test code = 5273836610) 9.3 g/dL 13.5-18.0 L %O2HB (test code = 7568049503) 98.2 % 94.0-99.0 %COHB ART (test code = 3767840752) 0.2 % 0.0-1.5 %METHB ART (test code = 4960321674) 0.3 % 0.4-1.5 L VOL%O2 ART (test code = 8101581193) 13.1 % 15.0-23.0 L NA (test code = 2074115833) 133 mmol/L 135-145 L K+ (test code = 6559091763) 4.2 mmol/L 3.5-5.0 AC CA IONZ (test code = 3150318905) 4.90 mg/dL 4.50-5.30 GLUCOSE (test code = 3388138719) 83 mg/dL 70-110 LACTIC ACID (test code = 1120739439) 0.77 mmol/L 0.50-2.20 Lab Interpretation (test cod e = 08985-9) Abnormal [facility] GLUCOSE (AUTOMATED)2024-07-28 17:34:56* Test Item Value Reference Range Interpretation Comme nts POCT GLU (test code = 2432302499) 88 mg/dL 70-110 Lab Interpretation (test cod e = 93358-7) Normal [facility] Center[facility] Yznthy9287-16-87 14:00:14* Test Item Value Reference Range Interpretation Comme nts Blood Culture-Aerobic (test code = 19593-5) Culture positive. See Blood Culture Workup for additional information. No growth AA Previous preliminary verified result was Order in Process on 07/27/2024 at 0701 PATIENT SAFETY OFFICER Blood Culture-Anaerobic (test code = 04346-1) Culture positive. See Blood Culture Workup for additional information. No growth AA Previous preliminary verified result was Order in Process on 07/27/2024 at 0701 PATIENT SAFETY OFFICER Lab Interpretation (test code = 37570-3) Abnormal [facility] GLUCOSE (AUTOMATED)2024-07-28 13:45:22* Test Item Value Reference Range Interpretation Comme nts POCT GLU (test code = 9765580737) 86 mg/dL 70-110 Lab Interpretation (test cod e = 85844-0) Normal [facility] CenterProcalcitonin2025-02-23 12:58:55* Test Item Value Reference Range Interpretation Comme nts Procalcitonin (test code = 0896205850) 0.46 ng/mL <=0.07 H ANITA (test code = ANITA) INTERPRETATION OF PROCALCITONIN RESULTS IN ADULTS >= 18 YEARS OF AGE Initiation and discontinuation of antibiotics on patients with suspected or confirmed Lower Respiratory Tract Infection in Adults >= 18 years of age. + +-------- --------+ + -----+|Procalcitonin |Interpretation ?|Antibiotic ? ? |Considerations ? |ng/mL ? | ?|recommendation | ? + +-------- --------+ + -----+| <0.1 ? | Bacterial ? ? ?| Strongly ? ? ?| ? | ?| infection very | discouraged ? | Overruling: ? | ?| unlikely ? ? ? | ? | ? Clinically unstable ? ? ? + +-------- --------+ + ? High risk for adverse ? ? | <0.25 ?| Bacterial ? ? ?| Discouraged ? | ? outcome ? | ?| infection ? ? ?| ? | ? SEE IMPORTANT NOTE ?| ?| unlikely ? ? ? | ? | ? + +-------- --------+ + -----+| >=0.25 ? ? ? | Bacterial ? ? ?| Encouraged ? ?| ? | ?| infection ? ? ?| ? | ? | ?| likely ? | ? | Consider treatment failure ?+ +------- ---------+ -+ if levels does not decrease | >0.5 ? | Bacterial ? ? ?| Strongly ? ? ?| appropriately ? | ?| infection very | encouraged ? ?| ? | ?| likely ? | ? | ? + +-------- --------+ + -----+ Discontinuation of antibiotics in high-acuity patients with suspected or confirmed sepsis in Adults >= 18 years of age. + +-------- --------+ + -----+|Procalcitonin |Interpretation ?|Antibiotic ? ? |Considerations ? |ng/mL ? | ?|recommendation | ? + +-------- --------+ + -----+| <0.25 ?| Bacterial ? ? ?| Strongly ? ? ?| ? | ?| infection very | discouraged ? | Overruling: ? | ?| unlikely ? ? ? | ? | ? Clinically unstable ? ? ? + +-------- --------+ + ? High risk for adverse ? ? | <0.5 or drop | Bacterial ? ? ?| Discouraged ? | ? outcome ? | >80% from ? ?| infection ? ? ?| ? | ? SEE IMPORTANT NOTE ?| highest PCT ?| unlikely ? ? ? | ? | ? | level ?| ?| ? | ? + +-------- --------+ + -----+| >=0.5 ?| Bacterial ? ? ?| Encouraged ? ?| ? | ?| infection ? ? ?| ? | ? | ?| likely ? | ? | Consider treatment failure ?+ +------- ---------+ -+ if levels does not decrease | >1.0 ? | Bacterial ? ? ?| Strongly ? ? ?| appropriately ? | ?| infection very | encouraged ? ?| ? | ?| likely ? | ? | ? + +-------- --------+ + -----+ Percentage of drop of Procalcitonin calculation for Discontinuation of antibiotics in high-acuity patients with suspected or confirmed sepsis in Adults >= 18 years of age. ? Procalcitonin highest{}-Procalcitonin current{}Delta Procalcitonin = x100% ? Procalcitonin current {} IMPORTANT NOTE: Procalcitonin may be elevated without bacterial infection by physiologic stress related to trauma, trammell, chronic dialysis, metastatic cancer, surgery in the past seven days, malaria, some fungal infections, and some forms of vasculitis. The interpretation algorithm may not apply to patients with immunosuppression (equivalent of >10 mg of prednisone daily), HIV with CD4 cell count < 350 cells/mm3, active malignancy on systemic chemotherapy, solid organ transplant or hematopoietic stem cell transplantation, or hospital acquired pneumonia. Additionally, some clinical trials of procalcitonin have excluded patients with shock requiring vasopressor use, acute respiratory failure requiring mechanical ventilation, or those with known lung abscess/empyema. For further information please refer to:[email or web address] Lab Interpretation (test code = 29590-5) [facility]normal [facility] CenterVancomycin Random Jckec8326-34-82 12:09:38* Test Item Value Reference Range Interpretation Comme nts VANCO RANDOM (test code = 63670-0) 11.3 ug/mL [facility]Basic Metabolic Panel (NA, K, CL, CO2, GLUCOSE, BUN, CREATININE, CA)2024-07-28 12:05:16* Test Item Value Reference Range Interpretation Comme nts NA (test code = 0000276345) 131 mmol/L 135-145 L K (test code = 6859578539) 4.4 mmol/L 3.5-5.0 CL (test code = 0887848600) 102 mmol/L 98-108 CO2 TOTAL (test code = 8937105540) 22 mmol/L 23-31 L AGAP (test code = 2652936148) 7 2-16 BUN (test code = 5305199850) 26 mg/dL 7-23 H GLUCOSE (test code = 3591647497) 86 mg/dL 70-110 CREATININE (test code = 2160-0) 2.23 mg/dL 0.60-1.25 H CALCIUM (test code = 4349105133) 8.3 mg/dL 8.6-10.6 L eGFR (test code = 99049-2) 29.1 mL/min/1.73m2 Lab Interpretation (test cod e = 76482-2) [facility]normal [facility] CenterPhosphorus [id number] 12:04:14* Test Item Value Reference Range Interpretation Comme nts PHOSPHORUS (test code = 4079702300) 3.5 mg/dL 2.5-5.0 Lab Interpretation (test cod e = 77000-3) Normal [facility] CenterHepatic Function Panel (16167) (ALB,T.PRO,BILI T,BU/BC,ALT,AST,ALK PHOS)2024-07-28 12:04:14* Test Item Value Reference Range Interpretation Comme nts TOTAL BILI (test code = 4246792952) 0.9 mg/dL 0.1-1.1 BILI UNCON (test code = 9861741427) 0.4 mg/dL 0.1-1.1 BILI CONJ (test code = 0199088710) 0.0 mg/dL 0.0-0.3 T PROTEIN (test code = 4571965425) 5.0 g/dL 6.3-8.2 L ALBUMIN (test code = 9845913874) 2.6 g/dL 3.5-5.0 L ALK PHOS (test code = 8608821021) 56 U/L 34-122 ALTv (test code = 1742-6) 79 U/L 5-50 H AST(SGOT) (test code = 8329700198) 61 U/L 13-40 H Lab Interpretation (test cod e = 65820-8) Abnormal [facility] CenterLipase2025-02-23 12:04:14* Test Item Value Reference Range Interpretation Comme nts LIPASE (test code = 5714946987) 37 U/L 0-220 Lab Interpretation (test cod e = 97181-3) Normal [facility] CenterMagnesium2025-02-23 12:04:14* Test Item Value Reference Range Interpretation Comme nts MAGNESIUM (test code = 2094294124) 2.1 mg/dL 1.7-2.4 Lab Interpretation (test cod e = 54187-1) Normal [facility] CenterCbc without Qoto7434-68-29 11:57:13* Test Item Value Reference Range Interpretation Comme nts WBC (test code = 6690-2) 11.16 4.20-10.70 H RBC (test code = 789-8) 2.73 4.26-5.52 L HGB (test code = 718-7) 8.1 g/dL 12.2-16.4 L HCT (test code = 4544-3) 24.8 % 38.4-49.3 L MCH (test code = 785-6) 29.7 pg 26.1-32.7 MCV (test code = 787-2) 90.8 fL 81.7-95.6 MCHC (test code = 786-4) 32.7 g/dL 31.2-35.0 PLT (test code = 777-3) 198 150-328 MPV (test code = 16200-9) 9.6 fL 9.8-13.0 L RDW-CV (test code = 788-0) 14.6 % 12.1-15.4 RDW-SD (test code = 82337-2) 48.6 fL 38.5-51.6 NRBC x10^3 (test code = 7344763331) 0.02 See_Comment [Automated [employer] ge] The system which generated this result transmitted reference range: 10*3/?L. The reference range was not used to interpret this result as normal/abnormal. NRBC/100 WBC (test code = 1158418292) 0.2 0.0-10.0 IPF % (test code = 5920120335) Lab Interpretation (test code = 94461-3) Abnormal [facility] CenterGRAM POSITIVE BLOOD PATHOGENS DNA KNNWN-NOKMYPT9917-12-23 08:06:57* Test Item Value Reference Range Interpretation Comme nts Coagulase Negative Staphylococcus (test code = 15556-9) Positive Negative A ANITA (test code = ANITA) Coagulase negative Staphylococcus (CoNS) detected by DNA probe. ?CoNS often contaminate blood cultures from skin colonization during phlebotomy. ?Preferred management is to repeat blood cultures, and monitor off antibiotics. ?Contamination is suggested by culture growth after 48 hours, or growth in single culture (i.e., one of two sets). ?True bacteremia is suggested by the fever, hypotension, and leukocytosis that are not explained by an alternative infection, or indwelling foreign devices that appear infected (catheters, lines, or prostheses). Consider Infectious Diseases consultation if differentiation of CoNS bacteremia from contamination is uncertain. If clinical context suggests true bacteremia, preferred therapy is vancomycin. Please contact the Antimicrobial Stewardship Program with questions.Pager: ?[phone] See blood culture result for additional information. Testing included eleven identification and three resistancemarker targets. Lab Interpretation (test code = 45688-2) [facility]normal [facility] CenterAC Panel 20 + Lactic [id number] 06:13:05* Test Item Value Reference Range Interpretation Comme nts PH (test code = 2) 7.31 7.35-7.45 L PCO2 (test code = 8410135410) 44 35-45 PO2 (test code = 3499480894) 101 80-100 H HCO3 (test code = 5886629414) 22 22-26 BE (test code = 7233798937) -4.6 -3.0-3.0 L THB (test code = 8678321512) 8.4 g/dL 13.5-18.0 L %O2HB (test code = 0504273317) 95.6 % 94.0-99.0 %COHB ART (test code = 3645709945) 1.3 % 0.0-1.5 %METHB ART (test code = 3738865127) 0.2 % 0.4-1.5 L VOL%O2 ART (test code = 3302868696) 11.5 % 15.0-23.0 L NA (test code = 5402637008) 132 mmol/L 135-145 L K+ (test code = 4951395955) 4.5 mmol/L 3.5-5.0 AC CA IONZ (test code = 0714604979) 4.80 mg/dL 4.50-5.30 GLUCOSE (test code = 1986298215) 95 mg/dL 70-110 LACTIC ACID (test code = 8305607733) 0.59 mmol/L 0.50-2.20 Lab Interpretation (test cod e = 74395-0) [facility] Lactic [id number] 01:59:54* Test Item Value Reference Range Interpretation Comme nts PH (test code = 2) 7.31 7.35-7.45 L PCO2 (test code = 5190566605) 37 35-45 PO2 (test code = 1991766331) 84 80-100 HCO3 (test code = 3886058347) 18 22-26 L BE (test code = 0873803985) -7.3 -3.0-3.0 L THB (test code = 0772280015) 10.7 g/dL 13.5-18.0 L %O2HB (test code = 9904098359) 94.2 % 94.0-99.0 %COHB ART (test code = 2156999743) 0.8 % 0.0-1.5 %METHB ART (test code = 5833997602) 0.1 % 0.4-1.5 L VOL%O2 ART (test code = 7378729675) 14.3 % 15.0-23.0 L NA (test code = 3066218699) 131 mmol/L 135-145 L K+ (test code = 8159320754) 4.2 mmol/L 3.5-5.0 AC CA IONZ (test code = 2345986345) 4.90 mg/dL 4.50-5.30 GLUCOSE (test code = 5895822429) 79 mg/dL 70-110 LACTIC ACID (test code = 4748566236) 0.56 mmol/L 0.50-2.20 Lab Interpretation (test cod e = 89340-2) [facility] ([facility] [id number] 01:37:25* Test Item Value Reference Range Interpretation Comme nts Height (test code = 4037557633) 74 in Weight (test code = 0507367629) 244 lbs Systolic BP (test code = 2226714483) 87 mmHg Diastolic BP (test code = 7177965460) 40 mmHg Heart Rate (test code = 9327337253) 115 bpm Aortic valve mean velocity (test code = 0319873041) 316.0 cm/s Ao peak jose miguel (test code = 7163449924) 440.0 cm/s Ao VTI (test code = 0097389604) 64.1 cm Ao max PG (test code = 7277685464) 77.40 mm[Hg] AV peak gradient (test code = 9817641200) 77.4 mmHg AV mean gradient (test code = 9705655593) 45.0 mmHg BSA (test code = 0840076014) 2.36 m2 Ao root diam (test code = 6148289761) 3.50 cm Aortic root (test code = 0714568857) 3.5 cm Ao root annulus (test code = 1934560511) 3.5 cm LVOT diameter (test code = 8356767752) 2.32 cm LVOT area (test code = 1745247615) 4.20 cm2 LA size (test code = 8701381602) 4.0 cm TR Peak Jose Miguel (test code = 5263816109) 238.1 cm/s Triscuspid Valve Regurgitation Peak Gradient (test code = 8063466452) 22.7 mmHg TASV (test code = 4403482351) 7.1 cm/s LAV(MOD-sp4) (test code = 2755317834) 92.30 mL LA Volume Index (BP) (test code = 2762335496) 40.7 mL/m2 LA volume (BP) (test code = 1823648437) 96.2 mL LAV(MOD-sp2) (test code = 4401924311) 98.60 mL LVIDD (test code = 4305226360) 4.90 cm Left Ventricular End Diastolic Volume by Teichholz Method (test code = 6067767) 113.8 mL IVS (test code = 0425071771) 1.44 cm Interventricular Septum Diastolic Thickness by 2D (test code = 9576751) 1.44 cm LVPWD (test code = 8908999797) 1.43 cm PW (test code = 9217186243) 1.43 cm 0.6-1.1 EF(Teich) (test code = 7857895499) 58.10 % LVIDS (test code = 5455678597) 3.40 cm Left Ventricular End Systolic Volume by Teichholz Method (test code = 0106496) 47.7 mL FS (test code = 0095758568) 31 % EF - 2D (test code = 39324615) 58.10 % Radiology Study observation (narrative) (test code = 35910-3) ANITA (test code = ANITA) ?Left?Ventricle: Left ventricle size is normal. Increased wall thickness. There is mild concentric hypertrophy. Septal motion is consistent with post-operative status. . Low normal systolic function with a visually estimated EF of 50 - 55%. Biplane EF is 54% (difficult to assess due to beat-beat variation from arrhythmias). Diastolic dysfunction. Unable to grade due to arrhythmias. No thrombus present. ?. ?Right?Ventricle: Right ventricle size is normal. Low normal systolic function. TDI-derived tricuspid annular systolic velocity (TDI S') is 7.1 cm/s. ?Left?Atrium: Left atrium is mildly dilated. Left atrium volume index is 40.7 mL/m2. ?Aortic?Valve: [address] 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 No transvalvular regurgitation. Mild paravalvular regurgitation at the RCC /9 O'clock position. Mean PG is 33-40 mmHg, peak velocity is 3.5-3.9 m/sec- these values may not be reliable in the post-operative period. Consider repeat the study in 6 weeks to reassess the prosthetic valve. BRUNO is 1.7 cm2, iAVA is 0.73 cm2/m2. DVI 0.44 (Normal >0.25). ?Tricuspid?Valve: Mild transvalvular regurgitation. Right ventricular systolic pressure is 30-35 mmHg. ?RA pressure is 5-10 mmHg. ?IVC/SVC: IVC diameter is greater than 21 mm and decreases greater than 50% during inspiration; therefore the estimated right atrial pressure is intermediate (~8 mmHg). ?Aorta: Not well visualized. ?Pericardium: Trivial pericardial effusion present. No indication of cardiac tamponade. Left pleural effusion. Left VentricleLeft ventricle size is normal. Increased wall thickness. There is mild concentric hypertrophy. Septal motion is consistent with post-operative status. . Low normal systolic function with a visually estimated EF of 50 - 55%. Biplane EF is 54% (difficult to assess due to beat-beat variation from arrhythmias). Diastolic dysfunction. Unable to grade due to arrhythmias. No thrombus present. .Right VentricleRight ventricle size is normal. Low normal systolic function. TDI-derived tricuspid annular systolic velocity (TDI S') is 7.1 cm/s.Left AtriumLeft atrium is mildly dilated. Left atrium volume index is 40.7 mL/m2.Right AtriumRight atrium size is normal.IVC/SVCIVC diameter is greater than 21 mm and decreases greater than 50% during inspiration; therefore the estimated right atrial pressure is intermediate (~8 mmHg).Mitral ValveMitral valve structure is normal. Trace transvalvular regurgitation. No stenosis.Tricuspid ValveTricuspid valve structure is normal. Mild transvalvular regurgitation. Right ventricular systolic pressure is 30-35 mmHg. RA pressure is 5-10 mmHg. No stenosis.Aortic Valve25 mm [address] 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 No transvalvular regurgitation. Mild paravalvular regurgitation at the RCC /9 O'clock position. Mean PG is 33-40 mmHg, peak velocity is 3.5-3.9 m/sec- these values may not be reliable in the post-operative period. Consider repeat the study in 6 weeks to reassess the prosthetic valve. BRUNO is 1.7 cm2, iAVA is 0.73 cm2/m2. DVI 0.44 (Normal >0.25).Pulmonic ValveNot well visualized. Trace transvalvular regurgitation. No stenosis.Ascending AortaNot well visualized.Pericardiu mThere is pericardial thickening. Trivial pericardial effusion present. No indication of cardiac tamponade. Left pleural effusion.Study DetailsStudy quality experienced technical difficulty. A complete echocardiogram was performed using 2D, color flow Doppler and spectral Doppler. The apical, parasternal, subcostal and suprasternal views were obtained. 3 mL of Optison ultrasound enhancing agent used. [facility] ([facility])2024-07-28 01:30:59* Test Item Value Reference Range Interpretation Comme [facility] POCT GLU (test code = 1109836801) 89 mg/dL 70-110 Lab Interpretation (test cod e = 25238-1) Normal [facility] Metabolic Panel (NA, K, CL, CO2, GLUCOSE, BUN, CREATININE, CA)2024-07-28 00:18:45* Test Item Value Reference Range Interpretation Comme [facility] NA (test code = 4587939801) 135 mmol/L 135-145 K (test code = 0891026672) 3.3 mmol/L 3.5-5.0 L CL (test code = 4601705329) 111 mmol/L 98-108 H CO2 TOTAL (test code = 8475232342) 20 mmol/L 23-31 L AGAP (test code = 2947587301) 4 2-16 BUN (test code = 9084083451) 25 mg/dL 7-23 H GLUCOSE (test code = 6568558924) 71 mg/dL 70-110 CREATININE (test code = 2160-0) 2.23 mg/dL 0.60-1.25 H CALCIUM (test code = 4155561763) 6.0 mg/dL 8.6-10.6 L eGFR (test code = 14335-4) 29.1 mL/min/1.73m2 Lab Interpretation (test cod e = 93884-8) [facility]normal [facility] CenterMagnesium2025-02-23 00:18:45* Test Item Value Reference Range Interpretation Comme nts MAGNESIUM (test code = 0499656407) 1.5 mg/dL 1.7-2.4 L Lab Interpretation (test cod e = 60563-4) [facility]normal [facility] CenterPhosphorus2025-02-23 00:18:45* Test Item Value Reference Range Interpretation Comme nts PHOSPHORUS (test code = 6549811521) 3.1 mg/dL 2.5-5.0 Lab Interpretation (test cod e = 33014-5) Normal [facility] 20 + Lactic Nzba9623-55-79 23:37:02* Test Item Value Reference Range Interpretation Comme nts PH (test code = 2) 7.30 7.35-7.45 L PCO2 (test code = 4111994290) 46 35-45 H PO2 (test code = 6450679349) 146 80-100 H HCO3 (test code = 5218106101) 22 22-26 BE (test code = 8470812332) -4.0 -3.0-3.0 L THB (test code = 5795967448) 8.7 g/dL 13.5-18.0 L %O2HB (test code = 1024388170) 97.4 % 94.0-99.0 %COHB ART (test code = 8546077297) 0.9 % 0.0-1.5 %METHB ART (test code = 9914444532) 0.3 % 0.4-1.5 L VOL%O2 ART (test code = 6722393615) 12.2 % 15.0-23.0 L NA (test code = 5738981061) 131 mmol/L 135-145 L K+ (test code = 4046332633) 4.5 mmol/L 3.5-5.0 AC CA IONZ (test code = 4173122887) 4.80 mg/dL 4.50-5.30 GLUCOSE (test code = 3417441586) 88 mg/dL 70-110 LACTIC ACID (test code = 7964240115) 0.61 mmol/L 0.50-2.20 Lab Interpretation (test cod e = 26712-3) [facility] 20 + Lactic Pusk8097-52-54 19:57:31* Test Item Value Reference Range Interpretation Comme nts PH (test code = 2) 7.27 7.35-7.45 L PCO2 (test code = 4152891505) 49 35-45 H PO2 (test code = 3618929937) 125 80-100 H HCO3 (test code = 3697949306) 22 22-26 BE (test code = 3181316794) -4.7 -3.0-3.0 L THB (test code = 9721175777) 8.6 g/dL 13.5-18.0 L %O2HB (test code = 7628467116) 96.7 % 94.0-99.0 %COHB ART (test code = 3480411385) 1.5 % 0.0-1.5 %METHB ART (test code = 3624495812) 0.3 % 0.4-1.5 L VOL%O2 ART (test code = 3363956124) 12.0 % 15.0-23.0 L NA (test code = 6990511965) 131 mmol/L 135-145 L K+ (test code = 2612393034) 4.7 mmol/L 3.5-5.0 AC CA IONZ (test code = 6898277181) 4.70 mg/dL 4.50-5.30 GLUCOSE (test code = 4760882583) 94 mg/dL 70-110 LACTIC ACID (test code = 5377673919) 0.53 mmol/L 0.50-2.20 Lab Interpretation (test cod e = 75063-0) [facility]normal [facility] CenterABG+COOX+NA+K+GLU+CA2+ (While Intubated) 2024-07-27 16:29:30* Test Item Value Reference Range Interpretation Comme nts PH (test code = 2) 7.26 7.35-7.45 L PCO2 (test code = 3397277398) 49 35-45 H PO2 (test code = 4824536049) 102 80-100 H HCO3 (test code = 6609141623) 22 22-26 BE (test code = 8910281987) -5.1 -3.0-3.0 L THB (test code = 1393227530) 8.0 g/dL 13.5-18.0 LL %O2HB (test code = 8400444629) 97.2 % 94.0-99.0 %COHB ART (test code = 7413003273) 0.3 % 0.0-1.5 %METHB ART (test code = 6492431591) 0.0 % 0.4-1.5 L VOL%O2 ART (test code = 6515899012) 11.1 % 15.0-23.0 L NA (test code = 7746668301) 129 mmol/L 135-145 L K+ (test code = 9652764858) 5.1 mmol/L 3.5-5.0 H AC CA IONZ (test code = 6467837836) 4.70 mg/dL 4.50-5.30 GLUCOSE (test code = 2973987168) 96 mg/dL 70-110 Lab Interpretation (test cod e = 85779-2) [facility]normal [facility] CenterCT Head wo eegndbic7636-94-72 15:08:54CT HEAD WO CONTRAST HISTORY: Cerebral hemorrhage suspected COMPARISON: Brain MRI dated 07/26/2024 TECHNIQUE: Non-contrast CT head with multi-planar reformats. FINDINGS:Evaluation slightly limited due to motion.Transcortical hypoattenuation in the right occipital lobe and focalhypodensity in the right cerebral hemisphere in keeping with knownacute/subacute infarcts. Mass effect associated with the right occipitallobe infarct in the form of effacement of the sulci and posterior hornright lateral ventricle. No petechial hemorrhage or overt parenchymalhematoma. The ventricles and cerebral sulci are otherwise normal in caliber andconfiguration. No hydrocephalus, midline shift or pathological extra- axialfluid collection is present. The basal cisterns are unremarkable. No additional parenchymal attenuation abnormality. Previously noted focusof infarction in the right frontal lobe is not seen, better visualized onthe prior MRI. The mariano-white matter differentiation is otherwisepreserved. The mastoid air cells and paranasal air sinuses are clear. The calvariumand central skull base are unremarkable.[facility] CenterPrepar Packed RBC (in units), 1 Hiqkb8905-36-83 14:55:50* Test Item Value Reference Range Interpretation Comme nts Cross Match Result (test code = 4409) Compatible ISBT Blood Type Code (test code = 537597) 6200 Unit Blood Type (test code = 4410) A Pos Unit Number (test code = 4411) [id number] Blood Expiration Date & Time (test code = 638836) [id number] Status Information (test code = 4412) Issued Product Identification (test code = 4413) Red Blood Cells Product Code (test code = 4414) [id number] Performed at [facility] Laboratory Services [facility] Blood [address] [place] [id number] Free: [phone] No. [id number] [facility] CenterArterial Vnxd6439-17-53 14:42:00Norma March MD ? ? 07/27/2024 ?8:42 AM Arterial Line Date/Time: 07/27/2024 8:42 AM Performed by: Norma March MDArterial Line Placement: ?Ultrasound- Guided: ultrasound guided ? ?Indication: continuous blood pressure monitoring and blood sampling needed ?Staff: ?Resident: ?Norma March, MDProcedure Detail: ?Catheter Size: ?20 gauge ?Catheter Length: ?1 and 3/4 inch ?Catheter Type: ?Arrow ?Seldinger Technique?: No ? ?Laterality: ?Left ?Site: ?Radial artery ?Line Secured: ?Tape, Tegaderm and biopatch ?Preparation: ?Chloroprep, sterile gloves, guidewire removed intact, biopatch applied and drapeEvents: ?Events: ?Patient tolerated procedure well with no complications and all wires accounted forComments: ? (+) Local infiltration with Lidocaine, STF, smooth and atraumatic. [facility] CenterAC Panel 21 + Lactic Oehy9759-21-21 13:51:24* Test Item Value Reference Range Interpretation Comme nts PH (test code = 2198315003) 7.24 7.32-7.42 L PCO2 ISIDRO (test code = 0544987861) 47 41-51 PO2 ISIDRO (test code = 7351176141) 102 25-40 HH HCO3 ISIDRO (test code = 5694995530) 20 24-28 L AC VBE(BEAKER) (test code = 6486589277) -7.6 mEq/L THB ISIDRO (test code = 6839811595) 10.1 g/dL 13.5-18.0 L %O2HB ISIDRO (test code = 8243982365) 96.5 % 52.0-63.0 H %COHB ISIDRO (test code = 3424561808) 0.5 % 0.0-1.5 %METHB ISIDRO (test code = 5410934464) 0.3 % 0.4-1.5 L VOL%O2 ISIDRO (test code = 8660217314) 13.9 % 6.0-12.0 H NA (test code = 3754592128) 129 mmol/L 135-145 L K+ (test code = 5337796641) 5.1 mmol/L 3.5-5.0 H AC CA IONZ (test code = 8312672413) 4.50 mg/dL 4.50-5.30 GLUCOSE (test code = 6415262570) 86 mg/dL 70-110 LACTIC ACID (test code = 0192956888) 0.54 mmol/L 0.50-2.20 Lab Interpretation (test cod e = 50564-2) Abnormal [facility] CenterType and Screen - STAT Faemyll6236-38-28 12:57:00* Test Item Value Reference Range Interpretation Comme nts ABO & RH (test code = 20) A POSITIVE IAT (test code = 1185) Negative [facility] CenterThyroid Stimulating Kygblqm3980-62-77 12:54:44 * Test Item Value Reference Range Interpretation Comme nts TSH (test code = 8727211794) 2.29 0.45-4.70 Biotin has been reported to cause a negative bias, interpret results relative to patient's use of biotin. Lab Interpretation (test code = 66815-5) Normal [facility] CenterFr [id number] 12:40:42* Test Item Value Reference Range Interpretation Comme nts FREE T4 (test code = 5529178835) 0.99 ng/dL 0.78-2.20 Lab Interpretation (test cod e = 90282-1) Normal [facility] Metabolic Panel (NA, K, CL, CO2, GLUCOSE, BUN, CREATININE, CA)2024-07-27 12:23:39* Test Item Value Reference Range Interpretation Comme nts NA (test code = 1464247626) 128 mmol/L 135-145 L K (test code = 0436010263) 5.3 mmol/L 3.5-5.0 H CL (test code = 6862736017) 98 mmol/L 98-108 CO2 TOTAL (test code = 7478211241) 23 mmol/L 23-31 AGAP (test code = 5907069071) 7 2-16 BUN (test code = 3154985857) 39 mg/dL 7-23 H GLUCOSE (test code = 9585001805) 86 mg/dL 70-110 CREATININE (test code = 2160-0) 3.90 mg/dL 0.60-1.25 H CALCIUM (test code = 7493831001) 7.8 mg/dL 8.6-10.6 L eGFR (test code = 88914-4) 14.9 mL/min/1.73m2 Lab Interpretation (test cod e = 26960-3) Abnormal [facility] with Pwrl6337-60-79 10:50:48* Test Item Value Reference Range Interpretation Comme nts WBC (test code = 6690-2) 10.35 4.20-10.70 RBC (test code = 789-8) 2.30 4.26-5.52 L HGB (test code = 718-7) 6.9 g/dL 12.2-16.4 L HCT (test code = 4544-3) 20.7 % 38.4-49.3 L MCV (test code = 787-2) 90.0 fL 81.7-95.6 MCH (test code = 785-6) 30.0 pg 26.1-32.7 MCHC (test code = 786-4) 33.3 g/dL 31.2-35.0 RDW-SD (test code = 19969-2) 47.9 fL 38.5-51.6 RDW-CV (test code = 788-0) 14.7 % 12.1-15.4 PLT (test code = 777-3) 189 150-328 MPV (test code = 45614-8) 9.2 fL 9.8-13.0 L NRBC/100 WBC (test code = 3824638208) 0.0 0.0-10.0 NRBC x10^3 (test code = 6415981966) See_Comment [Automated messa ge] The system which generated this result transmitted reference range: 10*3/?L. The reference range was not used to interpret this result as normal/abnormal. GRAN MAT (NEUT) % (test code = 770-8) 71.7 % IMM GRAN % (test code = 6165276016) 1.50 % LYMPH % (test code = 736-9) 8.5 % MONO % (test code = 5905-5) 13.5 % EOS % (test code = 713-8) 4.3 % BASO % (test code = 706-2) 0.5 % GRAN MAT x10^3(ANC) (test code = 8413389972) 7.41 10*3/uL 1.99-6.95 H IMM GRAN x10^3 (test code = 4496085639) 0.16 10*3/uL 0.00-0.06 H LYMPH x10^3 (test code = 731-0) 0.88 10*3/uL 1.09-3.23 L MONO x10^3 (test code = 742-7) 1.40 10*3/uL 0.36-1.02 H EOS x10^3 (test code = 711-2) 0.45 10*3/uL 0.06-0.53 BASO x10^3 (test code = 704-7) 0.05 10*3/uL 0.01-0.09 Lab Interpretation (test code = 46816-4) Abnormal [facility] GLUCOSE (AUTOMATED)2024-07-27 10:29:22* Test Item Value Reference Range Interpretation Comme [facility] POCT GLU (test code = 3429883179) 95 mg/dL 70-110 Lab Interpretation (test cod e = 25581-6) Normal [facility] CenterTroponin [id number] 10:17:25* Test Item Value Reference Range Interpretation Comme [facility] TROPONIN I (test code = 5812000714) 0.179 ng/mL <=0.034 H ANITA (test code = ANITA) Reference (Normal) Range (defined by the 99th percentile reference limit): <= 0.034 ng/mL Note: Cardiac troponin begins to rise 3-4 hours after the onset of ischemia. Repeat in 4-6 hours if the sample was drawn within 3-4 hours of the onset of the symptom and found normal. Diagnosis of myocardial injury is made with acute changes in cTn concentrations with at least one serial sample above the 99th percentile upper reference limit (URL), taken together with the patient's clinical presentation. Biotin has been reported to cause a negative bias, interpret results relative to patient's use of biotin. Lab Interpretation (test code = 77236-6) Abnormal [facility] Metabolic Panel (NA, K, CL, CO2, GLUCOSE, BUN, CREATININE, CA)2024-07-27 09:59:00* Test Item Value Reference Range Interpretation Comme [facility] NA (test code = 0439851480) 130 mmol/L 135-145 L K (test code = 3863820286) 4.7 mmol/L 3.5-5.0 CL (test code = 1875038309) 100 mmol/L 98-108 CO2 TOTAL (test code = 8070617185) 24 mmol/L 23-31 AGAP (test code = 4074692631) 6 2-16 BUN (test code = 6162538030) 38 mg/dL 7-23 H GLUCOSE (test code = 8362177993) 65 mg/dL 70-110 L CREATININE (test code = 2160-0) 3.62 mg/dL 0.60-1.25 H CALCIUM (test code = 6597588175) 7.4 mg/dL 8.6-10.6 L eGFR (test code = 50467-4) 16.2 mL/min/1.73m2 CKD-EPI eGFR (2020). Assuming creatinine has been stable day-to-day for at least three months, the eGFR indicates Category G4 (15 - 29 mL/min/1.73 m2) Lab Interpretation (test code = 04258-1) [facility]normal [facility] CenterPhosphorus2025-02-22 09:57:39* Test Item Value Reference Range Interpretation Comme nts PHOSPHORUS (test code = 1372337049) 5.3 mg/dL 2.5-5.0 H Lab Interpretation (test cod e = 53720-5) Abnormal [facility] CenterMagnesium2025-02-22 09:57:39* Test Item Value Reference Range Interpretation Comme nts MAGNESIUM (test code = 4410704189) 2.0 mg/dL 1.7-2.4 Lab Interpretation (test cod e = 49125-5) Normal [facility] CenterCbc without Nhzl7264-63-28 09:40:56* Test Item Value Reference Range Interpretation Comme nts WBC (test code = 6690-2) 9.68 4.20-10.70 RBC (test code = 789-8) 2.24 4.26-5.52 L HGB (test code = 718-7) 6.5 g/dL 12.2-16.4 L HCT (test code = 4544-3) 20.2 % 38.4-49.3 L MCH (test code = 785-6) 29.0 pg 26.1-32.7 MCV (test code = 787-2) 90.2 fL 81.7-95.6 MCHC (test code = 786-4) 32.2 g/dL 31.2-35.0 PLT (test code = 777-3) 185 150-328 MPV (test code = 40254-7) 9.1 fL 9.8-13.0 L RDW-CV (test code = 788-0) 14.7 % 12.1-15.4 RDW-SD (test code = 02541-1) 47.8 fL 38.5-51.6 NRBC x10^3 (test code = 9842929123) See_Comment [Automated messa ge] The system which generated this result transmitted reference range: 10*3/?L. The reference range was not used to interpret this result as normal/abnormal. NRBC/100 WBC (test code = 4396199898) 0.0 0.0-10.0 IPF % (test code = 1123920387) Lab Interpretation (test code = 83126-0) [facility]normal [facility] CenterAC Panel 21 + Lactic Lgcw1557-80-56 08:06:46* Test Item Value Reference Range Interpretation Comme nts PH (test code = 3053954842) 7.19 7.32-7.42 LL PCO2 ISIDRO (test code = 4680256318) 60 41-51 H PO2 ISIDRO (test code = 1370376408) 17 25-40 L HCO3 ISIDRO (test code = 5369717185) 23 24-28 L AC VBE(BEAKER) (test code = 4014876797) -5.3 mEq/L THB ISIDRO (test code = 6132246705) 7.4 g/dL 13.5-18.0 LL %O2HB ISIDRO (test code = 1921209938) 24.2 % 52.0-63.0 L %COHB ISIDRO (test code = 1038980077) 0.4 % 0.0-1.5 %METHB ISIDRO (test code = 5062152651) 1.5 % 0.4-1.5 VOL%O2 ISIDRO (test code = 8977981757) 2.5 % 6.0-12.0 L NA (test code = 9733828569) 131 mmol/L 135-145 L K+ (test code = 8398888819) 4.7 mmol/L 3.5-5.0 AC CA IONZ (test code = 1882108567) 5.00 mg/dL 4.50-5.30 GLUCOSE (test code = 3640550784) 85 mg/dL 70-110 LACTIC ACID (test code = 4024762112) 0.83 mmol/L 0.50-2.20 Lab Interpretation (test cod e = 62320-2) Abnormal [facility] CenterTroponin I2323-15-76 08:00:53* Test Item Value Reference Range Interpretation Comme nts TROPONIN I (test code = 7997853243) 0.218 ng/mL <=0.034 H ANITA (test code = ANITA) Reference (Normal) Range (defined by the 99th percentile reference limit): <= 0.034 ng/mL Note: Cardiac troponin begins to rise 3-4 hours after the onset of ischemia. Repeat in 4-6 hours if the sample was drawn within 3-4 hours of the onset of the symptom and found normal. Diagnosis of myocardial injury is made with acute changes in cTn concentrations with at least one serial sample above the 99th percentile upper reference limit (URL), taken together with the patient's clinical presentation. Biotin has been reported to cause a negative bias, interpret results relative to patient's use of biotin. Lab Interpretation (test code = 92029-7) [facility] [id number] 07:57:47* Test Item Value Reference Range Interpretation Comme nts CK (test code = 5171084248) 31 U/L 33-194 L Lab Interpretation (test cod e = 17620-4) [facility] [id number] 07:31:25* Test Item Value Reference Range Interpretation Comme nts MYOGLOB S (test code = 2014545057) 115.3 ng/mL <=121.0 ANITA (test code = ANITA) Biotin has been reported to cause a negative bias, interpret results relative to patient's use of biotin. Lab Interpretation (test code = 41892-6) Normal [facility]/Bili [id number] 07:18:02* Test Item Value Reference Range Interpretation Comme nts BILI CONJ (test code = 4567206194) 0.0 mg/dL 0.0-0.3 BILI UNCON (test code = 5034599187) 0.2 mg/dL 0.1-1.1 Lab Interpretation (test cod e = 14004-6) Normal [facility] (NA, K, CL, CO2, GLUCOSE, BUN, CREATININE, [place])2024-07-27 07:18:02* Test Item Value Reference Range Interpretation Comme nts NA (test code = 4854189097) 130 mmol/L 135-145 L K (test code = 4050507153) 5.8 mmol/L 3.5-5.0 H CL (test code = 8378800959) 96 mmol/L 98-108 L CO2 TOTAL (test code = 7338057701) 28 mmol/L 23-31 AGAP (test code = 3891594204) 6 2-16 BUN (test code = 4090447396) 40 mg/dL 7-23 H GLUCOSE (test code = 8879660363) 99 mg/dL 70-110 CREATININE (test code = 2160-0) 3.78 mg/dL 0.60-1.25 H CALCIUM (test code = 6287556767) 8.3 mg/dL 8.6-10.6 L eGFR (test code = 88895-4) 15.4 mL/min/1.73m2 CKD-EPI eGFR (2020). Assuming creatinine has been stable day-to-day for at least three months, the eGFR indicates Category G4 (15 - 29 mL/min/1.73 m2) Lab Interpretation (test code = 08500-7) [facility] 07:18:02* Test Item Value Reference Range Interpretation Comme nts MAGNESIUM (test code = 6706666509) 2.2 mg/dL 1.7-2.4 Lab Interpretation (test cod e = 48226-0) [facility]2025-[facility] 07:18:02* Test Item Value Reference Range Interpretation Comme nts PHOSPHORUS (test code = 5517931503) 6.3 mg/dL 2.5-5.0 H Lab Interpretation (test cod e = 75860-6) [facility]normal [facility] CenterHepatic Function Panel (31884) (ALB,T.PRO,BILI T,BU/BC,ALT,AST,ALK PHOS)2024-07-27 07:18:02* Test Item Value Reference Range Interpretation Comme nts TOTAL BILI (test code = 0036095316) 0.7 mg/dL 0.1-1.1 BILI UNCON (test code = 0748360690) 0.2 mg/dL 0.1-1.1 BILI CONJ (test code = 9644955957) 0.0 mg/dL 0.0-0.3 T PROTEIN (test code = 2169614745) 6.4 g/dL 6.3-8.2 ALBUMIN (test code = 5761987361) 3.3 g/dL 3.5-5.0 L ALK PHOS (test code = 0497186594) 74 U/L 34-122 ALTv (test code = 1742-6) 118 U/L 5-50 H AST(SGOT) (test code = 6825657069) 97 U/L 13-40 H Lab Interpretation (test cod e = 28458-8) Abnormal [facility] with [id number] 07:10:25* Test Item Value Reference Range Interpretation Comme nts WBC (test code = 6690-2) 12.00 4.20-10.70 H RBC (test code = 789-8) 2.93 4.26-5.52 L HGB (test code = 718-7) 8.8 g/dL 12.2-16.4 L HCT (test code = 4544-3) 26.8 % 38.4-49.3 L MCV (test code = 787-2) 91.5 fL 81.7-95.6 MCH (test code = 785-6) 30.0 pg 26.1-32.7 MCHC (test code = 786-4) 32.8 g/dL 31.2-35.0 RDW-SD (test code = 85080-4) 49.9 fL 38.5-51.6 RDW-CV (test code = 788-0) 14.8 % 12.1-15.4 PLT (test code = 777-3) 235 150-328 MPV (test code = 87003-8) 9.2 fL 9.8-13.0 L NRBC/100 WBC (test code = 3849498142) 0.0 0.0-10.0 NRBC x10^3 (test code = 5733568974) See_Comment [Automated messa ge] The system which generated this result transmitted reference range: 10*3/?L. The reference range was not used to interpret this result as normal/abnormal. GRAN MAT (NEUT) % (test code = 770-8) 71.2 % IMM GRAN % (test code = 8330230691) 2.20 % LYMPH % (test code = 736-9) 8.8 % MONO % (test code = 5905-5) 12.9 % EOS % (test code = 713-8) 4.4 % BASO % (test code = 706-2) 0.5 % GRAN MAT x10^3(ANC) (test code = 8372805476) 8.54 10*3/uL 1.99-6.95 H IMM GRAN x10^3 (test code = 6180617022) 0.26 10*3/uL 0.00-0.06 H LYMPH x10^3 (test code = 731-0) 1.06 10*3/uL 1.09-3.23 L MONO x10^3 (test code = 742-7) 1.55 10*3/uL 0.36-1.02 H EOS x10^3 (test code = 711-2) 0.53 10*3/uL 0.06-0.53 BASO x10^3 (test code = 704-7) 0.06 10*3/uL 0.01-0.09 Lab Interpretation (test code = 63794-3) [facility]normal [facility] CenterIonized Bgijsvy5532-73-01 07:09:05* Test Item Value Reference Range Interpretation Comme nts IONIZED CA (test code = 7228345349) 4.40 mg/dL 4.50-5.30 L PH SERUM (test code = 4400542759) 7.25 7.35-7.45 L Lab Interpretation (test cod e = 27946-3) [facility]normal [facility] CenterAmmonia, [id number] 06:54:41* Test Item Value Reference Range Interpretation Comme nts AMMONIA (test code = 1845188706) 9-33 L Lab Interpretation (test cod e = 78705-9) [facility]normal [facility] CenterFibrinogen2025-02-22 06:47:25* Test Item Value Reference Range Interpretation Comme nts Fibrinogen (test code = 8246552556) 571 mg/dL 167-453 H Lab Interpretation (test cod e = 80100-5) [facility]normal [facility] CenterProthrombin Time / [id number] 06:47:25* Test Item Value Reference Range Interpretation Comme nts PROTIME PATIENT (test code = 5964-2) 12.7 10.1-12.6 H INR (test code = 6301-6) 1.1 Normal INR <1.1; Warfarin Therapeutic range 2.0 to 3.0 or 2.5 to 3.5, depending upon the indications. Lab Interpretation (test code = 53804-5) [facility]normal [facility] CenterActivated Partial Thrmplas [id number] 06:47:25* Test Item Value Reference Range Interpretation Comme nts APTT Patient (test code = 3173-2) 33 26-36 Lab Interpretation (test cod e = 24804-4) Normal [facility] GLUCOSE (AUTOMATED)2024-07-27 04:21:51* Test Item Value Reference Range Interpretation Comme nts POCT GLU (test code = 3103951558) 110 mg/dL 70-110 Lab Interpretation (test cod e = 58620-2) Normal [facility] CenterAC Panel 21 + Lactic Oukx5562-96-86 02:43:40* Test Item Value Reference Range Interpretation Comme nts PH (test code = 0634343092) 7.15 7.32-7.42 LL PCO2 ISIDRO (test code = 9912779636) 74 41-51 H PO2 ISIDRO (test code = 9643954872) 17 25-40 L HCO3 ISIDRO (test code = 9589319054) 25 24-28 AC VBE(BEAKER) (test code = 2205874769) -4.5 mEq/L THB ISIDRO (test code = 7583769430) 9.1 g/dL 13.5-18.0 L %O2HB ISIDRO (test code = 1029569959) 26.1 % 52.0-63.0 L %COHB ISIDRO (test code = 0145849508) 0.3 % 0.0-1.5 %METHB ISIDRO (test code = 5333565935) 0.9 % 0.4-1.5 VOL%O2 ISIDRO (test code = 2532198790) 3.4 % 6.0-12.0 L NA (test code = 5477918343) 127 mmol/L 135-145 L K+ (test code = 7680968792) 5.0 mmol/L 3.5-5.0 AC CA IONZ (test code = 7577426874) 4.60 mg/dL 4.50-5.30 GLUCOSE (test code = 9887658468) 100 mg/dL 70-110 LACTIC ACID (test code = 1207979666) 0.68 mmol/L 0.50-2.20 QUES Lab Interpretation (test cod e = 28356-4) Abnormal [facility] GLUCOSE (AUTOMATED)2024-07-27 02:00:19* Test Item Value Reference Range Interpretation Comme nts POCT GLU (test code = 5676437744) 119 mg/dL 70-110 H Lab Interpretation (test cod e = 09920-6) [facility]normal [facility] CenterPOWY GLUCOSE (AUTOMATED)2024-07-26 22:27:25* Test Item Value Reference Range Interpretation Comme nts POCT GLU (test code = 9107360152) 113 mg/dL 70-110 H Lab Interpretation (test cod e = 78957-0) Abnormal [facility] GLUCOSE (AUTOMATED)2024-07-26 18:20:22* Test Item Value Reference Range Interpretation Comme nts POCT GLU (test code = 2736703305) 116 mg/dL 70-110 H Lab Interpretation (test cod e = 54229-0) [facility]normal [facility] CenterMR Brain wo nonxmong3566-23-61 17:32:12EXAM: MR BRAIN WO CONTRAST HISTORY: 79 years-old Male; Vision loss, binocular. TECHNIQUE: Multiplanar and multisequence MRI imaging of the brain wasobtained without contrast. COMPARISON: CT head on 05/28/2024 FINDINGS: STATEMENT: Patient was not able to complete the exam. Only axial T2 anddiffusionweighted images were obtained. The ventricles and cerebral sulci are normal in caliber and configuration.No midline shift or pathological extra-axial fluid collection is present.The basal cisterns are unremarkable. Multifocal foci of diffusion restriction and T2 hyperintensity are notedinvolving the right occipital lobe and right cerebellum. An additionalpunctate focus of diffusion restriction is noted in the right parasagittalposterior frontal lobe. No abnormal fluid signal is present in the paranasal sinuses. Trace leftmastoid effusion.[facility] Thorax wo jkoecfbr2810-58-82 17:25:59ORDERING PHYSICIAN: LAURA SHERMAN. HISTORY: eval pleural effusions TECHNIQUE: CT chest without intraven ous contrast. ?CT was performedaccording to ALARA (As Low As Reasonably Achievable). COMPARISON: CTchest 05/31/2024 FINDINGS: Great Vessels: Ascending thoracic aortic aneurysm repair has beenperformed, with expected appearance of graft extending from the aortic rootto the aorta 2.8 cm proximal from the right subclavian artery origin. Thereis fluid distention of the pericardial recesses. The pulmonary arteries areenlarged, with the main pulmonary artery measuring 3.8 cm, and the rightpulmonary artery measuring 3.5 cm. Right IJ line terminates at thecavoatrial junction. Heart: The heart is enlarged. There is a small pericardial effusion havinga maximum width of 1.7 cm. An aortic valve prosthesis is new. 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 Lymphadenopathy: No pathologically enlarged mediastinal, hilar, or axillarylymph nodes. Lungs: Dependent subsegmental atelectasis is seen at the right middle lobeand lingula. There is complete atelectasis of the lower lobes. Airways: Airways are clear. ?No bronchiectasis. Pleura: Large bilateral pleural effusions are present. There is nopneumothorax. Other: A 1.4 cm nodule within the right thyroid lobe is unchanged. Visualized abdomen: Adrenal glands are outside the field of view. Osseous Structures: Median sternotomy has been performed. Shot in the wiresare intact.[facility] CenterCT [facility] head 2024-07-26 15:56:18CT ANGIOGRAM HEAD, CT ANGIOGRAM NECK HISTORY: Male 79 years Anoxic brain damage COMPARISON: None TECHNIQUE: CT angiographic images of the head and neck were obtained afteradministration of IV contrast. Multiplanar reformats including maximumintensity projection images submitted for review. 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 Atherosclerosis of the intradural left vertebral arterywithout flow-limiting stenosis. The leftPICA origin is visualized.Multifocal severe stenosis of the mid and distal basilar artery. Thesuperior cerebellar arteries are grossly patent. origin of the leftposterior cerebral artery. Severe attenuation/near occlusion of the U5dwfhotn of the right posterior cerebral artery. The left posterior cerebralartery is grossly patent. The distal cervical, petrous, cavernous and supraclinoid internal carotidarteries are patent. Atherosclerosis of the carotid siphons withouthigh-grade stenosis. The anterior and middle cerebral arteries are patent. An anteriorcommunicating artery is visualized.The dural venous sinuses are grossly patent. CT ANGIOGRAM NECK: Common origin of the brachiocephalic trunk and left common carotid artery. The great vessel ostia are patent. The subclavian arteries demonstrate normal contrast opacification. There is atherosclerosis of the carotid bulbs resulting inmoderate left(approximately 50%) in mild right (less than 50%) stenosis. The bilateralcommon and internal carotid arteries are otherwise patent. The vertebral artery ostia patent. No flow-limiting stenosis is identifiedwithin the cervical segments. ? Moderate to large bilateral pleural effusions.[facility] Angiogram [id number] 15:56:18CT ANGIOGRAM HEAD, CT ANGIOGRAM NECK HISTORY: Male 79 years Anoxic brain damage COMPARISON: None TECHNIQUE: CT angiographic images of the head and neck were obtained afteradministration of IV contrast. Multiplanar reformats including maximumintensity projection images submitted for review. 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 Atherosclerosis of the intradural left vertebral arterywithout flow-limiting stenosis. The leftPICA origin is visualized.Multifocal severe stenosis of the mid and distal basilar artery. Thesuperior cerebellar arteries are grossly patent. origin of the leftposterior cerebral artery. Severe attenuation/near occlusion of the K5ysnqaqr of the right posterior cerebral artery. The left posterior cerebralartery is grossly patent. The distal cervical, petrous, cavernous and supraclinoid internal carotidarteries are patent. Atherosclerosis of the carotid siphons withouthigh-grade stenosis. The anterior and middle cerebral arteries are patent. An anteriorcommunicating artery is visualized.The dural venous sinuses are grossly patent. CT ANGIOGRAM NECK: Common origin of the brachiocephalic trunk and left common carotid artery. The great vessel ostia are patent. The subclavian arteries demonstrate normal contrast opacification. There is atherosclerosis of the carotid bulbs resulting inmoderate left(approximately 50%) in mild right (less than 50%) stenosis. The bilateralcommon and internal carotid arteries are otherwise patent. The vertebral artery ostia patent. No flow-limiting stenosis is identifiedwithin the cervical segments. ? Moderate to large bilateral pleural effusions.[facility] GLUCOSE (AUTOMATED)2024-07-26 14:43:59* Test Item Value Reference Range Interpretation Comme nts POCT GLU (test code = 2401509401) 125 mg/dL 70-110 H Lab Interpretation (test cod e = 80669-9) Abnormal [facility] GLUCOSE (AUTOMATED)2024-07-26 02:54:23* Test Item Value Reference Range Interpretation Comme nts POCT GLU (test code = 6420355669) 95 mg/dL 70-110 Lab Interpretation (test cod e = 69282-2) Normal [facility] GLUCOSE (AUTOMATED)2024-07-26 00:31:56* Test Item Value Reference Range Interpretation Comme nts POCT GLU (test code = 7003160686) 124 mg/dL 70-110 H Lab Interpretation (test cod e = 60773-4) Abnormal [facility] GLUCOSE (AUTOMATED)2024-07-25 17:34:22* Test Item Value Reference Range Interpretation Comme nts POCT GLU (test code = 9998274355) 110 mg/dL 70-110 Lab Interpretation (test cod e = 98990-5) Normal [facility] CenterChes 2 Views - Upright ( PA, LAT) on POD # 3 2024-07-25 16:32:28EXAM: XR CHEST 2 VW COMPARISON: 07/22/2024 HISTORY: s/p open heart surgery 07/19/2024 FINDINGS: Lines: Right IJ central venous catheter with tip at the right atrium. Lungs: Bilateral at least moderate pleural effusions with adjacentatelectasis or consolidation. No pneumothorax. Heart/Mediastinum: Thecardiomediastinal silhouette is enlarged Bones and soft tissues: No acute findings are detected. Sternotomy changesnoted.[facility] GLUCOSE (AUTOMATED)2024-07-25 14:22:20* Test Item Value Reference Range Interpretation Comme nts POCT GLU (test code = 8598954211) 103 mg/dL 70-110 Lab Interpretation (test cod e = 30214-8) Normal [facility] Metabolic Panel (NA, K, CL, CO2, GLUCOSE, BUN, CREATININE, CA)2024-07-25 12:15:04* Test Item Value Reference Range Interpretation Comme nts NA (test code = 0562447190) 126 mmol/L 135-145 L K (test code = 8119395506) 4.5 mmol/L 3.5-5.0 CL (test code = 5070483241) 96 mmol/L 98-108 L CO2 TOTAL (test code = 2711328890) 24 mmol/L 23-31 AGAP (test code = 8680823818) 6 2-16 BUN (test code = 1041177538) 43 mg/dL 7-23 H GLUCOSE (test code = 9486146218) 104 mg/dL 70-110 CREATININE (test code = 2160-0) 3.44 mg/dL 0.60-1.25 H CALCIUM (test code = 6167518854) 7.8 mg/dL 8.6-10.6 L eGFR (test code = 58832-7) 17.3 mL/min/1.73m2 CKD-EPI eGFR (2020). Assuming creatinine has been stable day-to-day for at least three months, the eGFR indicates Category G4 (15 - 29 mL/min/1.73 m2) Lab Interpretation (test code = 51344-6) [facility]normal [facility]esium2025-02-20 12:15:04* Test Item Value Reference Range Interpretation Comme nts MAGNESIUM (test code = 6849176838) 2.1 mg/dL 1.7-2.4 Lab Interpretation (test cod e = 66186-0) Normal [facility] CenterPhosphorus2025-02-20 12:15:04* Test Item Value Reference Range Interpretation Comme nts PHOSPHORUS (test code = 5045265951) 3.9 mg/dL 2.5-5.0 Lab Interpretation (test cod e = 32105-8) Normal [facility] CenterCbc without [id number] 11:32:20* Test Item Value Reference Range Interpretation Comme nts WBC (test code = 6690-2) 11.79 4.20-10.70 H RBC (test code = 789-8) 2.78 4.26-5.52 L HGB (test code = 718-7) 8.1 g/dL 12.2-16.4 L HCT (test code = 4544-3) 24.5 % 38.4-49.3 L MCH (test code = 785-6) 29.1 pg 26.1-32.7 MCV (test code = 787-2) 88.1 fL 81.7-95.6 MCHC (test code = 786-4) 33.1 g/dL 31.2-35.0 PLT (test code = 777-3) 149 150-328 L MPV (test code = 37345-1) 9.6 fL 9.8-13.0 L RDW-CV (test code = 788-0) 15.1 % 12.1-15.4 RDW-SD (test code = 49690-9) 49.1 fL 38.5-51.6 NRBC x10^3 (test code = 9457915256) See_Comment [Automated messa ge] The system which generated this result transmitted reference range: 10*3/?L. The reference range was not used to interpret this result as normal/abnormal. NRBC/100 WBC (test code = 2662983524) 0.0 0.0-10.0 IPF % (test code = 7629337376) Lab Interpretation (test code = 55786-1) Abnormal [facility] GLUCOSE (AUTOMATED)2024-07-25 02:03:48* Test Item Value Reference Range Interpretation Comme nts POCT GLU (test code = 1591428255) 131 mg/dL 70-110 H Lab Interpretation (test cod e = 54450-6) Abnormal [facility] GLUCOSE (AUTOMATED)2024-07-24 22:49:53* Test Item Value Reference Range Interpretation Comme nts POCT GLU (test code = 2619299490) 102 mg/dL 70-110 Lab Interpretation (test cod e = 31179-1) Normal [facility] GLUCOSE (AUTOMATED)2024-07-24 18:17:51* Test Item Value Reference Range Interpretation Comme nts POCT GLU (test code = 2176126372) 128 mg/dL 70-110 H Lab Interpretation (test cod e = 45802-9) Abnormal [facility] GLUCOSE (AUTOMATED)2024-07-24 14:19:20* Test Item Value Reference Range Interpretation Comme nts POCT GLU (test code = 5656738352) 95 mg/dL 70-110 Lab Interpretation (test cod e = 97415-6) Normal [facility] Metabolic Panel (NA, K, CL, CO2, GLUCOSE, BUN, CREATININE, CA) on POD # 10:57:23* Test Item Value Reference Range Interpretation Comme nts NA (test code = 4985262353) 130 mmol/L 135-145 L K (test code = 2203128244) 4.2 mmol/L 3.5-5.0 CL (test code = 8428888362) 101 mmol/L 98-108 CO2 TOTAL (test code = 0430192300) 25 mmol/L 23-31 AGAP (test code = 3482180619) 4 2-16 BUN (test code = 0211636415) 33 mg/dL 7-23 H GLUCOSE (test code = 1459654657) 93 mg/dL 70-110 CREATININE (test code = 2160-0) 3.00 mg/dL 0.60-1.25 H CALCIUM (test code = 0192772125) 7.3 mg/dL 8.6-10.6 L eGFR (test code = 67678-6) 20.4 mL/min/1.73m2 CKD-EPI eGFR (2020). Assuming creatinine has been stable day-to-day for at least three months, the eGFR indicates Category G4 (15 - 29 mL/min/1.73 m2) Lab Interpretation (test code = 07972-4) [facility]normal [facility] CenterMagnesium2025-02-19 10:57:23* Test Item Value Reference Range Interpretation Comme nts MAGNESIUM (test code = 5987674581) 2.2 mg/dL 1.7-2.4 Lab Interpretation (test cod e = 91205-8) Normal [facility] CenterPhosphorus2025-02-19 10:57:23* Test Item Value Reference Range Interpretation Comme nts PHOSPHORUS (test code = 4011545641) 2.8 mg/dL 2.5-5.0 Lab Interpretation (test cod e = 69757-9) Normal [facility] CenterCBC with Differential on POD # 10:39:18* Test Item Value Reference Range Interpretation Comme nts WBC (test code = 6690-2) 8.85 4.20-10.70 RBC (test code = 789-8) 2.36 4.26-5.52 L HGB (test code = 718-7) 7.1 g/dL 12.2-16.4 L HCT (test code = 4544-3) 20.5 % 38.4-49.3 L MCV (test code = 787-2) 86.9 fL 81.7-95.6 MCH (test code = 785-6) 30.1 pg 26.1-32.7 MCHC (test code = 786-4) 34.6 g/dL 31.2-35.0 RDW-SD (test code = 30955-2) 50.1 fL 38.5-51.6 RDW-CV (test code = 788-0) 15.9 % 12.1-15.4 H PLT (test code = 777-3) 105 150-328 L MPV (test code = 71473-7) 10.2 fL 9.8-13.0 NRBC/100 WBC (test code = 8968331259) 0.0 0.0-10.0 NRBC x10^3 (test code = 8732979396) See_Comment [Automated messa ge] The system which generated this result transmitted reference range: 10*3/?L. The reference range was not used to interpret this result as normal/abnormal. GRAN MAT (NEUT) % (test code = 770-8) 55.0 % IMM GRAN % (test code = 0426753708) 0.90 % LYMPH % (test code = 736-9) 13.1 % MONO % (test code = 5905-5) 14.9 % EOS % (test code = 713-8) 15.9 % BASO % (test code = 706-2) 0.2 % GRAN MAT x10^3(ANC) (test code = 2542201503) 4.86 10*3/uL 1.99-6.95 IMM GRAN x10^3 (test code = 1625689448) 0.08 10*3/uL 0.00-0.06 H LYMPH x10^3 (test code = 731-0) 1.16 10*3/uL 1.09-3.23 MONO x10^3 (test code = 742-7) 1.32 10*3/uL 0.36-1.02 H EOS x10^3 (test code = 711-2) 1.41 10*3/uL 0.06-0.53 H BASO x10^3 (test code = 704-7) 0.01-0.09 Lab Interpretation (test code = 57361-3) Abnormal [facility] GLUCOSE (AUTOMATED)2024-07-24 01:44:20* Test Item Value Reference Range Interpretation Comme nts POCT GLU (test code = 6878747017) 180 mg/dL 70-110 H Lab Interpretation (test cod e = 99019-5) Abnormal [facility] GLUCOSE (AUTOMATED)2024-07-23 23:15:53* Test Item Value Reference Range Interpretation Comme nts POCT GLU (test code = 3009972867) 96 mg/dL 70-110 Lab Interpretation (test cod e = 58650-5) Normal [facility] CenterGlycosylated Hemoglobin (A1C)2024-07-23 21:21:37* Test Item Value Reference Range Interpretation Comme nts HGB A1C (test code = 4548-4) 5.0 % 4.0-5.7 ANITA (test code = ANITA) Reference RangesNormal: <5.7%Prediabetes: 5.7 - 6.4%Diabetes: > 6.5% Lab Interpretation (test code = 39607-9) Normal [facility] GLUCOSE (AUTOMATED)2024-07-23 18:59:21* Test Item Value Reference Range Interpretation Comme nts POCT GLU (test code = 3500403180) 151 mg/dL 70-110 H Lab Interpretation (test cod e = 06915-9) Abnormal [facility] CenterCb with Grrg5983-59-10 14:53:01* Test Item Value Reference Range Interpretation Comme nts WBC (test code = 6690-2) 8.41 4.20-10.70 RBC (test code = 789-8) 2.55 4.26-5.52 L HGB (test code = 718-7) 7.5 g/dL 12.2-16.4 L HCT (test code = 4544-3) 21.9 % 38.4-49.3 L MCV (test code = 787-2) 85.9 fL 81.7-95.6 MCH (test code = 785-6) 29.4 pg 26.1-32.7 MCHC (test code = 786-4) 34.2 g/dL 31.2-35.0 RDW-SD (test code = 02487-5) 48.4 fL 38.5-51.6 RDW-CV (test code = 788-0) 15.7 % 12.1-15.4 H PLT (test code = 777-3) 83 150-328 L MPV (test code = 30999-6) 10.5 fL 9.8-13.0 IPF % (test code = 4360587250) 3.8 % 1.2-10.7 Platelet count measured by fluorescence method. NRBC/100 WBC (test code = 5901537505) 0.0 0.0-10.0 NRBC x10^3 (test code = 8007802164) See_Comment [Automated messa ge] The system which generated this result transmitted reference range: 10*3/?L. The reference range was not used to interpret this result as normal/abnormal. GRAN MAT (NEUT) % (test code = 770-8) 56.9 % IMM GRAN % (test code = 9127541936) 1.00 % LYMPH % (test code = 736-9) 14.4 % MONO % (test code = 5905-5) 13.6 % EOS % (test code = 713-8) 13.9 % BASO % (test code = 706-2) 0.2 % GRAN MAT x10^3(ANC) (test code = 2143252118) 4.79 10*3/uL 1.99-6.95 IMM GRAN x10^3 (test code = 7161093709) 0.08 10*3/uL 0.00-0.06 H LYMPH x10^3 (test code = 731-0) 1.21 10*3/uL 1.09-3.23 MONO x10^3 (test code = 742-7) 1.14 10*3/uL 0.36-1.02 H EOS x10^3 (test code = 711-2) 1.17 10*3/uL 0.06-0.53 H BASO x10^3 (test code = 704-7) 0.01-0.09 Lab Interpretation (test code = 34346-9) [facility]normal [facility] CenterPO[facility])2024-07-23 14:07:22* Test Item Value Reference Range Interpretation Comme nts POCT GLU (test code = 7575245136) 104 mg/dL 70-110 Lab Interpretation (test cod e = 17788-9) Normal [facility] CenterPrepare Packed RBC (in units), 1 Units 2024-07-23 11:44:59* Test Item Value Reference Range Interpretation Comme nts Cross Match Result (test code = 4409) Compatible ISBT Blood Type Code (test code = 181325) 6200 Unit Blood Type (test code = 4410) A Pos Unit Number (test code = 4411) [id number] Blood Expiration Date & Time (test code = 401196) [id number] Status Information (test code = 4412) Issued Product Identification (test code = 4413) Red Blood Cells Product Code (test code = 4414) [id number] Performed at [facility] Laboratory Services [facility] Blood [address] [address]Djbr Free: [phone] No. [id number] [facility] CenterType and Screen - STAT [id number] 10:35:00 * Test Item Value Reference Range Interpretation Comme nts ABO & RH (test code = 20) A POSITIVE IAT (test code = 1185) Negative [facility] CenterCbc with Oodl9766-60-05 10:10:47* Test Item Value Reference Range Interpretation Comme nts WBC (test code = 6690-2) 5.60 4.20-10.70 RBC (test code = 789-8) 2.18 4.26-5.52 L HGB (test code = 718-7) 6.5 g/dL 12.2-16.4 L HCT (test code = 4544-3) 19.2 % 38.4-49.3 L MCV (test code = 787-2) 88.1 fL 81.7-95.6 MCH (test code = 785-6) 29.8 pg 26.1-32.7 MCHC (test code = 786-4) 33.9 g/dL 31.2-35.0 RDW-SD (test code = 48381-5) 48.8 fL 38.5-51.6 RDW-CV (test code = 788-0) 15.4 % 12.1-15.4 PLT (test code = 777-3) 61 150-328 L MPV (test code = 13175-6) 10.5 fL 9.8-13.0 IPF % (test code = 2787899522) 3.6 % 1.2-10.7 Platelet count measured by fluorescence method. NRBC/100 WBC (test code = 2758609133) 0.0 0.0-10.0 NRBC x10^3 (test code = 9270972778) See_Comment [Automated messa ge] The system which generated this result transmitted reference range: 10*3/?L. The reference range was not used to interpret this result as normal/abnormal. GRAN MAT (NEUT) % (test code = 770-8) 60.2 % IMM GRAN % (test code = 0251959064) 1.10 % LYMPH % (test code = 736-9) 15.9 % MONO % (test code = 5905-5) 7.9 % EOS % (test code = 713-8) 14.5 % BASO % (test code = 706-2) 0.4 % GRAN MAT x10^3(ANC) (test code = 2035445465) 3.38 10*3/uL 1.99-6.95 IMM GRAN x10^3 (test code = 7031772050) 0.06 10*3/uL 0.00-0.06 LYMPH x10^3 (test code = 731-0) 0.89 10*3/uL 1.09-3.23 L MONO x10^3 (test code = 742-7) 0.44 10*3/uL 0.36-1.02 EOS x10^3 (test code = 711-2) 0.81 10*3/uL 0.06-0.53 H BASO x10^3 (test code = 704-7) 0.01-0.09 Lab Interpretation (test code = 02826-2) Abnormal [facility] Metabolic Panel (NA, K, CL, CO2, GLUCOSE, BUN, CREATININE, CA)2024-07-23 10:06:11* Test Item Value Reference Range Interpretation Comme nts NA (test code = 9515068270) 133 mmol/L 135-145 L K (test code = 0796073636) 3.8 mmol/L 3.5-5.0 CL (test code = 9421152522) 104 mmol/L 98-108 CO2 TOTAL (test code = 4277276737) 30 mmol/L 23-31 AGAP (test code = 6449167186) 2-16 L BUN (test code = 0250466099) 20 mg/dL 7-23 GLUCOSE (test code = 7922969473) 89 mg/dL 70-110 CREATININE (test code = 2160-0) 1.90 mg/dL 0.60-1.25 H CALCIUM (test code = 3296286588) 7.9 mg/dL 8.6-10.6 L eGFR (test code = 84899-2) 35.2 mL/min/1.73m2 CKD-EPI eGFR (2020). Assuming creatinine has been stable day-to-day for at least three months, the eGFR indicates Category G3b (30 - 44 mL/min/1.73 m2) Lab Interpretation (test code = 54954-7) [facility] 10:04:00* Test Item Value Reference Range Interpretation Comme nts MAGNESIUM (test code = 7188190384) 2.3 mg/dL 1.7-2.4 Lab Interpretation (test cod e = 60623-0) [facility] 10:04:00* Test Item Value Reference Range Interpretation Comme nts PHOSPHORUS (test code = 8202885252) 2.0 mg/dL 2.5-5.0 L Lab Interpretation (test cod e = 00859-9) [facility]25-[facility] 09:55:01* Test Item Value Reference Range Interpretation Comme nts Fibrinogen (test code = 1847949879) 330 mg/dL 167-453 Lab Interpretation (test cod e = 11324-0) Normal [facility]Act[facility] Partial Thrmplas Odk5150-47-26 09:55:01* Test Item Value Reference Range Interpretation Comme nts APTT Patient (test code = 3173-2) 31 26-36 Lab Interpretation (test cod e = 10740-3) Normal [facility]th[facility] Time / XZQ4210-06-47 09:55:01* Test Item Value Reference Range Interpretation Comme nts PROTIME PATIENT (test code = 5964-2) 12.7 10.1-12.6 H INR (test code = 6301-6) 1.1 Normal INR <1.1; Warfarin Therapeutic range 2.0 to 3.0 or 2.5 to 3.5, depending upon the indications. Lab Interpretation (test code = 87021-6) [facility]2024-07-23 06:50:20* Test Item Value Reference Range Interpretation Comme nts POCT GLU (test code = 7750629150) 153 mg/dL 70-110 H Lab Interpretation (test cod e = 30522-8) [facility] 1 ls8401-19-67 06:07:13EXAM: XR CHEST 1 VW COMPARISON: 07/20/2024 [facility] yw3133-35-27 05:05:20ORDERING PHYSICIAN: Alena SANCHEZ ?LANE HISTORY: chest tubes removed ? COMPARISON: 07/21/2024 FINDINGS: Right-sided permacath remains in stable position. Left IJ central venouscatheter remains in stable position. The [place] catheter has beenwithdrawn. Heart remains mildly enlarged. ?There is increased pulmonary vascularcongestion. There are increased bilateral pleural effusions, right greaterthan left. There is no pneumothorax. ? ?Osseous structures areunremarkable. ? Please note that chest radiography is not a sensitive modality for thedetection of masses.[facility] ABG+COOX+NA+K+GLU+CA2+2024-07-23 05:01:23* Test Item Value Reference Range Interpretation Comme nts PH (test code = 2) 7.33 7.35-7.45 L PCO2 (test code = 9749187000) 41 35-45 PO2 (test code = 6594244188) 242 80-100 H HCO3 (test code = 8562708508) 21 22-26 L BE (test code = 9182799492) -5.0 -3.0-3.0 L THB (test code = 4165762377) 8.9 g/dL 13.5-18.0 L %O2HB (test code = 3110716766) 98.1 % 94.0-99.0 %COHB ART (test code = 8484507553) 0.6 % 0.0-1.5 %METHB ART (test code = 8253619353) 0.2 % 0.4-1.5 L VOL%O2 ART (test code = 0431451491) 12.9 % 15.0-23.0 L QUES NA (test code = 7280371611) 134 mmol/L 135-145 L K+ (test code = 6566329494) 5.3 mmol/L 3.5-5.0 H AC CA IONZ (test code = 7825739989) 4.60 mg/dL 4.50-5.30 GLUCOSE (test code = 0893680662) 137 mg/dL 70-110 H Lab Interpretation (test cod e = 68594-3) [facility]+K+GLU+CA2+2024-07-23 05:00:53* Test Item Value Reference Range Interpretation Comme nts PH (test code = 2) 7.39 7.35-7.45 PCO2 (test code = 3901763064) 37 35-45 PO2 (test code = 2455154975) 427 80-100 H HCO3 (test code = 2309229432) 22 22-26 BE (test code = 5230155466) -3.2 -3.0-3.0 L THB (test code = 2323324466) 6.9 g/dL 13.5-18.0 LL %O2HB (test code = 7042353718) 97.2 % 94.0-99.0 %COHB ART (test code = 5862859056) 1.3 % 0.0-1.5 %METHB ART (test code = 4935985297) 0.7 % 0.4-1.5 VOL%O2 ART (test code = 6899608646) 10.7 % 15.0-23.0 L QUES NA (test code = 5907883433) 133 mmol/L 135-145 L K+ (test code = 5639149224) 5.3 mmol/L 3.5-5.0 H AC CA IONZ (test code = 2111852523) 4.20 mg/dL 4.50-5.30 L GLUCOSE (test code = 3531075411) 123 mg/dL 70-110 H Lab Interpretation (test cod e = 92852-4) [facility]+NA+K+GLU+CA2+ (While Intubated) 2024-07-23 04:53:31* Test Item Value Reference Range Interpretation Comme nts PH (test code = 2) 7.41 7.35-7.45 PCO2 (test code = 2860854634) 34 35-45 L PO2 (test code = 6164607175) 199 80-100 H HCO3 (test code = 2379387603) 21 22-26 L BE (test code = 6547486161) -3.5 -3.0-3.0 L THB (test code = 1602901592) 7.4 g/dL 13.5-18.0 LL %O2HB (test code = 0169075060) 97.9 % 94.0-99.0 %COHB ART (test code = 1384146411) 1.2 % 0.0-1.5 %METHB ART (test code = 4953483199) 0.1 % 0.4-1.5 L VOL%O2 ART (test code = 0555415936) 10.7 % 15.0-23.0 L NA (test code = 2453216467) 131 mmol/L 135-145 L K+ (test code = 2850950266) 5.6 mmol/L 3.5-5.0 H AC CA IONZ (test code = 3612430036) 4.40 mg/dL 4.50-5.30 L GLUCOSE (test code = 3787379343) 131 mg/dL 70-110 H Lab Interpretation (test cod e = 62646-3) [facility]+K+GLU+CA2+2024-07-23 04:51:30* Test Item Value Reference Range Interpretation Comme nts PH (test code = 2) 7.34 7.35-7.45 L PCO2 (test code = 8528910558) 37 35-45 PO2 (test code = 7718309975) 329 80-100 H HCO3 (test code = 2484710192) 19 22-26 L BE (test code = 6976312866) -5.9 -3.0-3.0 L THB (test code = 7087714485) 8.4 g/dL 13.5-18.0 L %O2HB (test code = 6948237095) 98.2 % 94.0-99.0 %COHB ART (test code = 1994909339) 0.6 % 0.0-1.5 %METHB ART (test code = 8113616992) 0.4 % 0.4-1.5 VOL%O2 ART (test code = 5184475629) 12.5 % 15.0-23.0 L QUES NA (test code = 6899840555) 133 mmol/L 135-145 L K+ (test code = 5543254540) 5.1 mmol/L 3.5-5.0 H AC CA IONZ (test code = 9678596378) 4.70 mg/dL 4.50-5.30 GLUCOSE (test code = 6299394697) 150 mg/dL 70-110 H Lab Interpretation (test cod e = 72041-2) [facility]CA2+2024-07-23 04:49:38* Test Item Value Reference Range Interpretation Comme nts PH (test code = 2) 7.41 7.35-7.45 PCO2 (test code = 2516017140) 37 35-45 PO2 (test code = 3144789610) 468 80-100 H HCO3 (test code = 6132185405) 23 22-26 BE (test code = 9127334998) -1.5 -3.0-3.0 THB (test code = 1933163251) 10.0 g/dL 13.5-18.0 L %O2HB (test code = 6693795323) 98.6 % 94.0-99.0 %COHB ART (test code = 3962636146) 0.3 % 0.0-1.5 %METHB ART (test code = 0480209314) 0.4 % 0.4-1.5 VOL%O2 ART (test code = 3660054502) 15.2 % 15.0-23.0 QUES NA (test code = 5702088564) 131 mmol/L 135-145 L K+ (test code = 5468305267) 4.2 mmol/L 3.5-5.0 AC CA IONZ (test code = 6118941800) 4.50 mg/dL 4.50-5.30 GLUCOSE (test code = 4901201246) 98 mg/dL 70-110 Lab Interpretation (test cod e = 36617-4) [facility]+GLU+CA2+2024-07-23 04:44:40* Test Item Value Reference Range Interpretation Comme nts PH (test code = 2) 7.41 7.35-7.45 PCO2 (test code = 4019517547) 36 35-45 PO2 (test code = 9312298643) 276 80-100 H HCO3 (test code = 5529268984) 22 22-26 BE (test code = 6202675769) -2.5 -3.0-3.0 THB (test code = 4282416672) 6.4 g/dL 13.5-18.0 LL %O2HB (test code = 6423623858) 97.0 % 94.0-99.0 %COHB ART (test code = 3009801733) 1.2 % 0.0-1.5 %METHB ART (test code = 7419577910) 0.8 % 0.4-1.5 VOL%O2 ART (test code = 1881474842) 9.5 % 15.0-23.0 L QUES NA (test code = 0968850902) 130 mmol/L 135-145 L K+ (test code = 2421654425) 6.5 mmol/L 3.5-5.0 HH AC CA IONZ (test code = 6717650666) 4.30 mg/dL 4.50-5.30 L GLUCOSE (test code = 3732005794) 154 mg/dL 70-110 H Lab Interpretation (test cod e = 74384-0) [facility]+GLU+CA2+2024-07-23 04:21:14* Test Item Value Reference Range Interpretation Comme nts PH (test code = 2) 7.40 7.35-7.45 PCO2 (test code = 3341516011) 35 35-45 PO2 (test code = 3617489947) 247 80-100 H HCO3 (test code = 9310483258) 21 22-26 L BE (test code = 9520703708) -3.1 -3.0-3.0 L THB (test code = 1907624170) 7.0 g/dL 13.5-18.0 LL %O2HB (test code = 9252509480) 97.5 % 94.0-99.0 %COHB ART (test code = 8588585611) 1.1 % 0.0-1.5 %METHB ART (test code = 0754150239) 0.5 % 0.4-1.5 VOL%O2 ART (test code = 5826650417) 10.3 % 15.0-23.0 L QUES NA (test code = 2511472731) 132 mmol/L 135-145 L K+ (test code = 6304470739) 5.6 mmol/L 3.5-5.0 H AC CA IONZ (test code = 9605448132) 4.90 mg/dL 4.50-5.30 GLUCOSE (test code = 9193040658) 169 mg/dL 70-110 H Lab Interpretation (test cod e = 87409-8) [facility]CA2+2024-07-23 04:20:38* Test Item Value Reference Range Interpretation Comme nts PH (test code = 2) 7.37 7.35-7.45 PCO2 (test code = 8887588284) 36 35-45 PO2 (test code = 6355461856) 267 80-100 H HCO3 (test code = 3536809167) 20 22-26 L BE (test code = 4564634351) -4.6 -3.0-3.0 L THB (test code = 3940897439) 7.3 g/dL 13.5-18.0 LL %O2HB (test code = 4757480538) 97.8 % 94.0-99.0 %COHB ART (test code = 9552412530) 0.8 % 0.0-1.5 %METHB ART (test code = 4269886115) 0.6 % 0.4-1.5 VOL%O2 ART (test code = 7527738706) 10.8 % 15.0-23.0 L QUES NA (test code = 4938452144) 129 mmol/L 135-145 L K+ (test code = 2606677746) 6.2 mmol/L 3.5-5.0 HH AC CA IONZ (test code = 5440037168) 4.30 mg/dL 4.50-5.30 L GLUCOSE (test code = 4811063144) 200 mg/dL 70-110 H Lab Interpretation (test cod e = 77545-0) Abnormal [facility] with Lusp4997-44-05 01:02:34* Test Item Value Reference Range Interpretation Comme nts WBC (test code = 6690-2) 11.77 4.20-10.70 H RBC (test code = 789-8) 2.55 4.26-5.52 L HGB (test code = 718-7) 7.6 g/dL 12.2-16.4 L HCT (test code = 4544-3) 22.4 % 38.4-49.3 L MCV (test code = 787-2) 87.8 fL 81.7-95.6 MCH (test code = 785-6) 29.8 pg 26.1-32.7 MCHC (test code = 786-4) 33.9 g/dL 31.2-35.0 RDW-SD (test code = 14264-1) 50.3 fL 38.5-51.6 RDW-CV (test code = 788-0) 15.6 % 12.1-15.4 H PLT (test code = 777-3) 69 150-328 L MPV (test code = 76473-4) 10.9 fL 9.8-13.0 IPF % (test code = 3262602585) 6.5 % 1.2-10.7 Platelet count measured by fluorescence method. NRBC/100 WBC (test code = 7571552262) 0.0 0.0-10.0 NRBC x10^3 (test code = 5658328964) See_Comment [Automated [employer] ge] The system which generated this result transmitted reference range: 10*3/?L. The reference range was not used to interpret this result as normal/abnormal. GRAN MAT (NEUT) % (test code = 770-8) 67.1 % IMM GRAN % (test code = 0439149390) 1.00 % LYMPH % (test code = 736-9) 7.1 % MONO % (test code = 5905-5) 11.2 % EOS % (test code = 713-8) 13.3 % BASO % (test code = 706-2) 0.3 % GRAN MAT x10^3(ANC) (test code = 9071432393) 7.90 10*3/uL 1.99-6.95 H IMM GRAN x10^3 (test code = 6382930869) 0.12 10*3/uL 0.00-0.06 H LYMPH x10^3 (test code = 731-0) 0.84 10*3/uL 1.09-3.23 L MONO x10^3 (test code = 742-7) 1.32 10*3/uL 0.36-1.02 H EOS x10^3 (test code = 711-2) 1.56 10*3/uL 0.06-0.53 H BASO x10^3 (test code = 704-7) 0.03 10*3/uL 0.01-0.09 Lab Interpretation (test code = 51098-5) [facility] Aqcb5597-83-33 01:02:34* Test Item Value Reference Range Interpretation Comme nts WBC (test code = 6690-2) 11.77 4.20-10.70 H RBC (test code = 789-8) 2.55 4.26-5.52 L HGB (test code = 718-7) 7.6 g/dL 12.2-16.4 L HCT (test code = 4544-3) 22.4 % 38.4-49.3 L MCV (test code = 787-2) 87.8 fL 81.7-95.6 MCH (test code = 785-6) 29.8 pg 26.1-32.7 MCHC (test code = 786-4) 33.9 g/dL 31.2-35.0 RDW-SD (test code = 10370-0) 50.3 fL 38.5-51.6 RDW-CV (test code = 788-0) 15.6 % 12.1-15.4 H PLT (test code = 777-3) 69 150-328 L MPV (test code = 62906-0) 10.9 fL 9.8-13.0 IPF % (test code = 2150697383) 6.5 % 1.2-10.7 Platelet count measured by fluorescence method. NRBC/100 WBC (test code = 6924096659) 0.0 0.0-10.0 NRBC x10^3 (test code = 4209968126) See_Comment [Automated messa ge] The system which generated this result transmitted reference range: 10*3/?L. The reference range was not used to interpret this result as normal/abnormal. GRAN MAT (NEUT) % (test code = 770-8) 67.1 % IMM GRAN % (test code = 0121641751) 1.00 % LYMPH % (test code = 736-9) 7.1 % MONO % (test code = 5905-5) 11.2 % EOS % (test code = 713-8) 13.3 % BASO % (test code = 706-2) 0.3 % GRAN MAT x10^3(ANC) (test code = 1474709999) 7.90 10*3/uL 1.99-6.95 H IMM GRAN x10^3 (test code = 6159120230) 0.12 10*3/uL 0.00-0.06 H LYMPH x10^3 (test code = 731-0) 0.84 10*3/uL 1.09-3.23 L MONO x10^3 (test code = 742-7) 1.32 10*3/uL 0.36-1.02 H EOS x10^3 (test code = 711-2) 1.56 10*3/uL 0.06-0.53 H BASO x10^3 (test code = 704-7) 0.03 10*3/uL 0.01-0.09 Lab Interpretation (test code = 15785-9) Abnormal [facility] GLUCOSE (AUTOMATED)2024-07-22 22:22:17* Test Item Value Reference Range Interpretation Comme nts POCT GLU (test code = 2161669775) 99 mg/dL 70-110 Lab Interpretation (test cod e = 30317-6) Normal [facility] GLUCOSE (AUTOMATED)2024-07-22 22:22:17* Test Item Value Reference Range Interpretation Comme nts POCT GLU (test code = 9101451777) 99 mg/dL 70-110 Lab Interpretation (test cod e = 64730-2) Normal [facility] High Vfmil7044-80-60 18:39:19* Test Item Value Reference Range Interpretation Comme nts ACTHR (test code = 5451414478) 96-152 H Lab Interpretation (test cod e = 22632-6) Abnormal [facility] Urdbb3025-13-49 18:39:19* Test Item Value Reference Range Interpretation Comme nts ACTHR (test code = 7553500424) 96-152 H Lab Interpretation (test cod e = 66364-0) Abnormal [facility] Nrnwq1352-67-52 18:26:56* Test Item Value Reference Range Interpretation Comme nts ACTHR (test code = 8539574545) 449 96-152 H Lab Interpretation (test cod e = 02185-5) Abnormal [facility] Awapb2517-47-46 18:26:56* Test Item Value Reference Range Interpretation Comme nts ACTHR (test code = 7052579079) 607 96-152 H Lab Interpretation (test cod e = 89487-4) Abnormal [facility] High Xnstl9492-57-91 18:26:56* Test Item Value Reference Range Interpretation Comme nts ACTHR (test code = 5401416665) 114 96-152 Lab Interpretation (test cod e = 34494-0) Normal [facility] Wijft1495-78-77 18:26:56* Test Item Value Reference Range Interpretation Comme nts ACTHR (test code = 6622964218) 820 96-152 H Lab Interpretation (test cod e = 95335-9) Abnormal [facility] High Wdyvj1476-88-07 18:26:56* Test Item Value Reference Range Interpretation Comme nts ACTHR (test code = 3336576270) 600 96-152 H Lab Interpretation (test cod e = 13787-3) Abnormal [facility] High Hgemb0274-19-56 18:26:56* Test Item Value Reference Range Interpretation Comme nts ACTHR (test code = 9790421351) 586 96-152 H Lab Interpretation (test cod e = 97533-3) Abnormal [facility] High Uujtw9017-81-36 18:26:56* Test Item Value Reference Range Interpretation Comme nts ACTHR (test code = 9787254376) 449 96-152 H Lab Interpretation (test cod e = 88993-4) Abnormal [facility] High Anzze9041-57-30 18:26:56* Test Item Value Reference Range Interpretation Comme nts ACTHR (test code = 2472242572) 607 96-152 H Lab Interpretation (test cod e = 70850-4) Abnormal [facility] High Qzgxl4049-88-42 18:26:56* Test Item Value Reference Range Interpretation Comme nts ACTHR (test code = 1918269984) 114 96-152 Lab Interpretation (test cod e = 79932-0) Normal [facility] Iljvu1016-98-01 18:26:56* Test Item Value Reference Range Interpretation Comme nts ACTHR (test code = 9936317644) 820 96-152 H Lab Interpretation (test cod e = 37143-6) Abnormal [facility] High Sjshw7758-46-04 18:26:56* Test Item Value Reference Range Interpretation Comme nts ACTHR (test code = 8878269598) 600 96-152 H Lab Interpretation (test cod e = 78654-8) Abnormal [facility] Texrv3167-36-99 18:26:56* Test Item Value Reference Range Interpretation Comme nts ACTHR (test code = 1051644669) 586 96-152 H Lab Interpretation (test cod e = 49215-7) Abnormal [facility] High Eyvmi5805-48-81 18:26:50* Test Item Value Reference Range Interpretation Comme nts ACTHR (test code = 1618210929) 557 96-152 H Lab Interpretation (test cod e = 53111-1) Abnormal [facility] High Zxtxc1355-82-12 18:26:50* Test Item Value Reference Range Interpretation Comme nts ACTHR (test code = 8833838624) 453 96-152 H Lab Interpretation (test cod e = 44056-4) Abnormal [facility] High Kbheg5070-40-58 18:26:50* Test Item Value Reference Range Interpretation Comme nts ACTHR (test code = 7505761929) 665 96-152 H Lab Interpretation (test cod e = 67307-7) Abnormal [facility] Uopvs5872-06-77 18:26:50* Test Item Value Reference Range Interpretation Comme nts ACTHR (test code = 6093387025) 557 96-152 H Lab Interpretation (test cod e = 19821-7) Abnormal [facility] Yphfn9552-69-52 18:26:50* Test Item Value Reference Range Interpretation Comme nts ACTHR (test code = 2437861435) 453 96-152 H Lab Interpretation (test cod e = 19330-6) Abnormal [facility] Stluu4307-03-96 18:26:50* Test Item Value Reference Range Interpretation Comme nts ACTHR (test code = 7201936848) 665 96-152 H Lab Interpretation (test cod e = 86582-2) Abnormal [facility]2025-02-17 18:26:45* Test Item Value Reference Range Interpretation Comme nts ACTHR (test code = 0041113300) 86 96-152 L Lab Interpretation (test cod e = 31235-3) Abnormal [facility]2025-02-17 18:26:45* Test Item Value Reference Range Interpretation Comme nts ACTHR (test code = 0219557301) 573 96-152 H Lab Interpretation (test cod e = 05517-5) Abnormal [facility]2025-02-17 18:26:45* Test Item Value Reference Range Interpretation Comme nts ACTHR (test code = 9198889610) 784 96-152 H Lab Interpretation (test cod e = 62240-7) Abnormal [facility] Lsfjb3647-65-19 18:26:45* Test Item Value Reference Range Interpretation Comme nts ACTHR (test code = 3805441645) 783 96-152 H Lab Interpretation (test cod e = 53055-9) Abnormal [facility] Xdoth8990-74-38 18:26:45* Test Item Value Reference Range Interpretation Comme nts ACTHR (test code = 3759647315) 573 96-152 H Lab Interpretation (test cod e = 88196-6) Abnormal [facility] ACT High Odamk0071-44-41 18:26:45* Test Item Value Reference Range Interpretation Comme nts ACTHR (test code = 9669485204) 586 96-152 H Lab Interpretation (test cod e = 13161-0) Abnormal [facility] ACT High Lqusm8496-55-67 18:26:45* Test Item Value Reference Range Interpretation Comme nts ACTHR (test code = 5476622143) 86 96-152 L Lab Interpretation (test cod e = 51974-4) Abnormal [facility] ACT High Gmrvx5111-25-97 18:26:45* Test Item Value Reference Range Interpretation Comme nts ACTHR (test code = 1093043847) 573 96-152 H Lab Interpretation (test cod e = 28641-2) Abnormal [facility] ACT [facility] Jxjjy9103-43-23 18:26:45* Test Item Value Reference Range Interpretation Comme nts ACTHR (test code = 9823096312) 784 96-152 H Lab Interpretation (test cod e = 98363-7) Abnormal [facility] ACT High Otkrd7381-91-64 18:26:45* Test Item Value Reference Range Interpretation Comme nts ACTHR (test code = 9551929656) 783 96-152 H Lab Interpretation (test cod e = 64961-9) Abnormal [facility] ACT [facility] Dvosc8705-88-63 18:26:45* Test Item Value Reference Range Interpretation Comme nts ACTHR (test code = 2948223720) 573 96-152 H Lab Interpretation (test cod e = 30799-3) Abnormal [facility] ACT High Mrjcr5991-06-80 18:26:45* Test Item Value Reference Range Interpretation Comme nts ACTHR (test code = 0436610390) 586 96-152 H Lab Interpretation (test cod e = 10395-2) Abnormal [facility] GLUCOSE (AUTOMATED)2024-07-22 18:09:20* Test Item Value Reference Range Interpretation Comme nts POCT GLU (test code = 6710109508) 126 mg/dL 70-110 H Lab Interpretation (test cod e = 00826-1) Abnormal [facility] GLUCOSE (AUTOMATED)2024-07-22 18:09:20* Test Item Value Reference Range Interpretation Comme nts POCT GLU (test code = 6279186134) 126 mg/dL 70-110 H Lab Interpretation (test cod e = 69679-2) [facility] 1 Units 2024-07-22 14:06:40* Test Item Value Reference Range Interpretation Comme nts Cross Match Result (test code = 4409) Compatible ISBT Blood Type Code (test code = 867121) 6200 Unit Blood Type (test code = 4410) A Pos Unit Number (test code = 4411) [id number] Blood Expiration Date & Time (test code = 346386) [id number] Status Information (test code = 4412) Issued Product Identification (test code = 4413) Red Blood Cells Product Code (test code = 4414) [id number] Performed at [facility] Blood [address] Free: [phone] No. [id number] [facility]), 1 Units 2024-07-22 14:06:40* Test Item Value Reference Range Interpretation Comme nts Cross Match Result (test code = 4409) Compatible ISBT Blood Type Code (test code = 935571) 6200 Unit Blood Type (test code = 4410) A Pos Unit Number (test code = 4411) [id number] Blood Expiration Date & Time (test code = 911435) [id number] Status Information (test code = 4412) Issued Product Identification (test code = 4413) Red Blood Cells Product Code (test code = 4414) [id number] Performed at [facility] Blood [address] Free: [phone] No. [id number] [facility] GLUCOSE (AUTOMATED)2024-07-21 21:44:47* Test Item Value Reference Range Interpretation Comme nts POCT GLU (test code = 1710066189) 124 mg/dL 70-110 H Lab Interpretation (test cod e = 01896-3) Abnormal [facility] GLUCOSE (AUTOMATED)2024-07-21 21:44:47* Test Item Value Reference Range Interpretation Comme nts POCT GLU (test code = 0006699675) 124 mg/dL 70-110 H Lab Interpretation (test cod e = 04440-5) Abnormal [facility] GLUCOSE (AUTOMATED)2024-07-21 17:39:15* Test Item Value Reference Range Interpretation Comme nts POCT GLU (test code = 3682076630) 126 mg/dL 70-110 H Lab Interpretation (test cod e = 66179-5) Abnormal [facility] GLUCOSE (AUTOMATED)2024-07-21 17:39:15* Test Item Value Reference Range Interpretation Comme nts POCT GLU (test code = 9971659137) 126 mg/dL 70-110 H Lab Interpretation (test cod e = 92073-5) Abnormal [facility] GLUCOSE (AUTOMATED)2024-07-21 13:50:45* Test Item Value Reference Range Interpretation Comme nts POCT GLU (test code = 5972980868) 113 mg/dL 70-110 H Lab Interpretation (test cod e = 96905-8) Abnormal [facility] GLUCOSE (AUTOMATED)2024-07-21 13:50:45* Test Item Value Reference Range Interpretation Comme nts POCT GLU (test code = 0057413592) 113 mg/dL 70-110 H Lab Interpretation (test cod e = 93356-4) Abnormal [facility] with Tbyv5770-16-03 11:29:47* Test Item Value Reference Range Interpretation Comme nts WBC (test code = 6690-2) 8.48 4.20-10.70 RBC (test code = 789-8) 2.38 4.26-5.52 L HGB (test code = 718-7) 7.2 g/dL 12.2-16.4 L HCT (test code = 4544-3) 20.7 % 38.4-49.3 L MCV (test code = 787-2) 87.0 fL 81.7-95.6 MCH (test code = 785-6) 30.3 pg 26.1-32.7 MCHC (test code = 786-4) 34.8 g/dL 31.2-35.0 RDW-SD (test code = 67798-9) 51.1 fL 38.5-51.6 RDW-CV (test code = 788-0) 16.2 % 12.1-15.4 H PLT (test code = 777-3) 51 150-328 L MPV (test code = 75765-0) 11.3 fL 9.8-13.0 IPF % (test code = 9704835429) 4.5 % 1.2-10.7 Platelet count measured by fluorescence method. NRBC/100 WBC (test code = 4497015209) 0.0 0.0-10.0 NRBC x10^3 (test code = 9510001817) See_Comment [Automated [employer]] The system which generated this result transmitted reference range: 10*3/?L. The reference range was not used to interpret this result as normal/abnormal. GRAN MAT (NEUT) % (test code = 770-8) 71.5 % IMM GRAN % (test code = 0814079014) 0.40 % LYMPH % (test code = 736-9) 9.4 % MONO % (test code = 5905-5) 10.8 % EOS % (test code = 713-8) 7.4 % BASO % (test code = 706-2) 0.5 % GRAN MAT x10^3(ANC) (test code = 0019360978) 6.06 10*3/uL 1.99-6.95 IMM GRAN x10^3 (test code = 7085028387) 0.03 10*3/uL 0.00-0.06 LYMPH x10^3 (test code = 731-0) 0.80 10*3/uL 1.09-3.23 L MONO x10^3 (test code = 742-7) 0.92 10*3/uL 0.36-1.02 EOS x10^3 (test code = 711-2) 0.63 10*3/uL 0.06-0.53 H BASO x10^3 (test code = 704-7) 0.04 10*3/uL 0.01-0.09 GIANT PLATELETS (test code = 5908-9) Present See_Comment A [Automated [employer]] The system which generated this result transmitted reference range: (none). The reference range was not used to interpret this result as normal/abnormal. Lab Interpretation (test code = 73509-2) Abnormal [facility] with [id number] 11:29:47* Test Item Value Reference Range Interpretation Comme nts WBC (test code = 6690-2) 8.48 4.20-10.70 RBC (test code = 789-8) 2.38 4.26-5.52 L HGB (test code = 718-7) 7.2 g/dL 12.2-16.4 L HCT (test code = 4544-3) 20.7 % 38.4-49.3 L MCV (test code = 787-2) 87.0 fL 81.7-95.6 MCH (test code = 785-6) 30.3 pg 26.1-32.7 MCHC (test code = 786-4) 34.8 g/dL 31.2-35.0 RDW-SD (test code = 94988-3) 51.1 fL 38.5-51.6 RDW-CV (test code = 788-0) 16.2 % 12.1-15.4 H PLT (test code = 777-3) 51 150-328 L MPV (test code = 32691-3) 11.3 fL 9.8-13.0 IPF % (test code = 4409359621) 4.5 % 1.2-10.7 Platelet count measured by fluorescence method. NRBC/100 WBC (test code = 2603681081) 0.0 0.0-10.0 NRBC x10^3 (test code = 7750181910) See_Comment [Automated [employer]] The system which generated this result transmitted reference range: 10*3/?L. The reference range was not used to interpret this result as normal/abnormal. GRAN MAT (NEUT) % (test code = 770-8) 71.5 % IMM GRAN % (test code = 3620620468) 0.40 % LYMPH % (test code = 736-9) 9.4 % MONO % (test code = 5905-5) 10.8 % EOS % (test code = 713-8) 7.4 % BASO % (test code = 706-2) 0.5 % GRAN MAT x10^3(ANC) (test code = 0102757309) 6.06 10*3/uL 1.99-6.95 IMM GRAN x10^3 (test code = 0120520778) 0.03 10*3/uL 0.00-0.06 LYMPH x10^3 (test code = 731-0) 0.80 10*3/uL 1.09-3.23 L MONO x10^3 (test code = 742-7) 0.92 10*3/uL 0.36-1.02 EOS x10^3 (test code = 711-2) 0.63 10*3/uL 0.06-0.53 H BASO x10^3 (test code = 704-7) 0.04 10*3/uL 0.01-0.09 GIANT PLATELETS (test code = 5908-9) Present See_Comment A [Automated messa ge] The system which generated this result transmitted reference range: (none). The reference range was not used to interpret this result as normal/abnormal. Lab Interpretation (test code = 80696-4) Abnormal [facility] Metabolic Panel (NA, K, CL, CO2, GLUCOSE, BUN, CREATININE, CA)2024-07-21 11:06:19* Test Item Value Reference Range Interpretation Comme nts NA (test code = 5936024391) 133 mmol/L 135-145 L K (test code = 3424063240) 4.2 mmol/L 3.5-5.0 CL (test code = 9331687534) 104 mmol/L 98-108 CO2 TOTAL (test code = 4116917749) 23 mmol/L 23-31 AGAP (test code = 5725576171) 6 2-16 BUN (test code = 3593549528) 18 mg/dL 7-23 GLUCOSE (test code = 8066401224) 122 mg/dL 70-110 H CREATININE (test code = 2160-0) 1.97 mg/dL 0.60-1.25 H CALCIUM (test code = 6698899959) 7.8 mg/dL 8.6-10.6 L eGFR (test code = 12154-1) 33.7 mL/min/1.73m2 CKD-EPI eGFR (2020). Assuming creatinine has been stable day-to-day for at least three months, the eGFR indicates Category G3b (30 - 44 mL/min/1.73 m2) Lab Interpretation (test code = 49973-1) [facility] (NA, K, CL, CO2, GLUCOSE, BUN, CREATININE, CA)2024-07-21 11:06:19* Test Item Value Reference Range Interpretation Comme nts NA (test code = 8934363404) 133 mmol/L 135-145 L K (test code = 5046864460) 4.2 mmol/L 3.5-5.0 CL (test code = 3345842393) 104 mmol/L 98-108 CO2 TOTAL (test code = 0254664290) 23 mmol/L 23-31 AGAP (test code = 1754250230) 6 2-16 BUN (test code = 9731068195) 18 mg/dL 7-23 GLUCOSE (test code = 0214421880) 122 mg/dL 70-110 H CREATININE (test code = 2160-0) 1.97 mg/dL 0.60-1.25 H CALCIUM (test code = 4757205501) 7.8 mg/dL 8.6-10.6 L eGFR (test code = 25301-8) 33.7 mL/min/1.73m2 CKD-EPI eGFR (2020). Assuming creatinine has been stable day-to-day for at least three months, the eGFR indicates Category G3b (30 - 44 mL/min/1.73 m2) Lab Interpretation (test code = 55327-6) [facility] 11:05:14* Test Item Value Reference Range Interpretation Comme nts MAGNESIUM (test code = 3188555158) 2.4 mg/dL 1.7-2.4 Lab Interpretation (test cod e = 68624-5) [facility] 11:05:14* Test Item Value Reference Range Interpretation Comme nts PHOSPHORUS (test code = 6416826352) 3.6 mg/dL 2.5-5.0 Lab Interpretation (test cod e = 62663-1) [facility] 11:05:14* Test Item Value Reference Range Interpretation Comme nts MAGNESIUM (test code = 3420595399) 2.4 mg/dL 1.7-2.4 Lab Interpretation (test cod e = 91717-1) [facility] 11:05:14* Test Item Value Reference Range Interpretation Comme nts PHOSPHORUS (test code = 7974816238) 3.6 mg/dL 2.5-5.0 Lab Interpretation (test cod e = 98297-4) Normal [facility] GLUCOSE (AUTOMATED)2024-07-21 02:06:47* Test Item Value Reference Range Interpretation Comme nts POCT GLU (test code = 2585922004) 125 mg/dL 70-110 H Lab Interpretation (test cod e = 78528-4) Abnormal [facility] GLUCOSE (AUTOMATED)2024-07-21 02:06:47* Test Item Value Reference Range Interpretation Comme nts POCT GLU (test code = 6139901470) 125 mg/dL 70-110 H Lab Interpretation (test cod e = 73122-3) [facility]CA2+ (While Intubated) 2024-07-20 23:41:10* Test Item Value Reference Range Interpretation Comme nts PH (test code = 2) 7.38 7.35-7.45 PCO2 (test code = 5425243378) 36 35-45 PO2 (test code = 8189088381) 112 80-100 H HCO3 (test code = 3482960078) 21 22-26 L BE (test code = 7268371844) -3.6 -3.0-3.0 L THB (test code = 1980036697) 11.2 g/dL 13.5-18.0 L %O2HB (test code = 1437485194) 96.6 % 94.0-99.0 %COHB ART (test code = 8311719037) 1.1 % 0.0-1.5 %METHB ART (test code = 2334350703) 0.3 % 0.4-1.5 L VOL%O2 ART (test code = 5554544388) 15.4 % 15.0-23.0 NA (test code = 5089675914) 133 mmol/L 135-145 L K+ (test code = 1220231581) 4.5 mmol/L 3.5-5.0 AC CA IONZ (test code = 9309388295) 4.50 mg/dL 4.50-5.30 GLUCOSE (test code = 0472490297) 140 mg/dL 70-110 H Lab Interpretation (test cod e = 65173-1) [facility]CA2+ (While Intubated) 2024-07-20 23:41:10* Test Item Value Reference Range Interpretation Comme nts PH (test code = 2) 7.38 7.35-7.45 PCO2 (test code = 3286943044) 36 35-45 PO2 (test code = 3751066892) 112 80-100 H HCO3 (test code = 3163674762) 21 22-26 L BE (test code = 7113257864) -3.6 -3.0-3.0 L THB (test code = 1384104904) 11.2 g/dL 13.5-18.0 L %O2HB (test code = 8835226663) 96.6 % 94.0-99.0 %COHB ART (test code = 7124859514) 1.1 % 0.0-1.5 %METHB ART (test code = 1250672929) 0.3 % 0.4-1.5 L VOL%O2 ART (test code = 1194435043) 15.4 % 15.0-23.0 NA (test code = 0738809000) 133 mmol/L 135-145 L K+ (test code = 8026130907) 4.5 mmol/L 3.5-5.0 AC CA IONZ (test code = 4283879861) 4.50 mg/dL 4.50-5.30 GLUCOSE (test code = 2765547222) 140 mg/dL 70-110 H Lab Interpretation (test cod e = 23226-1) [facility] 22:56:45* Test Item Value Reference Range Interpretation Comme nts POCT GLU (test code = 5352554078) 136 mg/dL 70-110 H Lab Interpretation (test cod e = 74754-2) [facility] 22:56:45* Test Item Value Reference Range Interpretation Comme [facility] POCT GLU (test code = 0394834775) 136 mg/dL 70-110 H Lab Interpretation (test cod e = 26450-3) Abnormal [facility] with [id number] 21:47:40* Test Item Value Reference Range Interpretation Comme [facility] WBC (test code = 6690-2) 6.97 4.20-10.70 RBC (test code = 789-8) 2.66 4.26-5.52 L HGB (test code = 718-7) 8.0 g/dL 12.2-16.4 L HCT (test code = 4544-3) 22.7 % 38.4-49.3 L MCV (test code = 787-2) 85.3 fL 81.7-95.6 MCH (test code = 785-6) 30.1 pg 26.1-32.7 MCHC (test code = 786-4) 35.2 g/dL 31.2-35.0 H RDW-SD (test code = 82102-4) 49.9 fL 38.5-51.6 RDW-CV (test code = 788-0) 16.0 % 12.1-15.4 H PLT (test code = 777-3) 56 150-328 L MPV (test code = 93418-7) 10.2 fL 9.8-13.0 IPF % (test code = 7580908389) 3.6 % 1.2-10.7 Platelet count measured by fluorescence method. NRBC/100 WBC (test code = 8011163951) 0.0 0.0-10.0 NRBC x10^3 (test code = 7375733746) See_Comment [Automated messa ge] The system which generated this result transmitted reference range: 10*3/?L. The reference range was not used to interpret this result as normal/abnormal. GRAN MAT (NEUT) % (test code = 770-8) 78.4 % IMM GRAN % (test code = 4559303741) 0.30 % LYMPH % (test code = 736-9) 7.6 % MONO % (test code = 5905-5) 11.9 % EOS % (test code = 713-8) 1.4 % BASO % (test code = 706-2) 0.4 % GRAN MAT x10^3(ANC) (test code = 8514112653) 5.46 10*3/uL 1.99-6.95 IMM GRAN x10^3 (test code = 8254592844) 0.00-0.06 LYMPH x10^3 (test code = 731-0) 0.53 10*3/uL 1.09-3.23 L MONO x10^3 (test code = 742-7) 0.83 10*3/uL 0.36-1.02 EOS x10^3 (test code = 711-2) 0.10 10*3/uL 0.06-0.53 BASO x10^3 (test code = 704-7) 0.03 10*3/uL 0.01-0.09 Lab Interpretation (test code = 26070-9) Abnormal [facility] with [id number] 21:47:40* Test Item Value Reference Range Interpretation Comme nts WBC (test code = 6690-2) 6.97 4.20-10.70 RBC (test code = 789-8) 2.66 4.26-5.52 L HGB (test code = 718-7) 8.0 g/dL 12.2-16.4 L HCT (test code = 4544-3) 22.7 % 38.4-49.3 L MCV (test code = 787-2) 85.3 fL 81.7-95.6 MCH (test code = 785-6) 30.1 pg 26.1-32.7 MCHC (test code = 786-4) 35.2 g/dL 31.2-35.0 H RDW-SD (test code = 60255-4) 49.9 fL 38.5-51.6 RDW-CV (test code = 788-0) 16.0 % 12.1-15.4 H PLT (test code = 777-3) 56 150-328 L MPV (test code = 89702-3) 10.2 fL 9.8-13.0 IPF % (test code = 2345822867) 3.6 % 1.2-10.7 Platelet count measured by fluorescence method. NRBC/100 WBC (test code = 6785523580) 0.0 0.0-10.0 NRBC x10^3 (test code = 4486750040) See_Comment [Automated [employer]] The system which generated this result transmitted reference range: 10*3/?L. The reference range was not used to interpret this result as normal/abnormal. GRAN MAT (NEUT) % (test code = 770-8) 78.4 % IMM GRAN % (test code = 0222866938) 0.30 % LYMPH % (test code = 736-9) 7.6 % MONO % (test code = 5905-5) 11.9 % EOS % (test code = 713-8) 1.4 % BASO % (test code = 706-2) 0.4 % GRAN MAT x10^3(ANC) (test code = 2994051491) 5.46 10*3/uL 1.99-6.95 IMM GRAN x10^3 (test code = 3282974668) 0.00-0.06 LYMPH x10^3 (test code = 731-0) 0.53 10*3/uL 1.09-3.23 L MONO x10^3 (test code = 742-7) 0.83 10*3/uL 0.36-1.02 EOS x10^3 (test code = 711-2) 0.10 10*3/uL 0.06-0.53 BASO x10^3 (test code = 704-7) 0.03 10*3/uL 0.01-0.09 Lab Interpretation (test code = 07926-8) Abnormal [facility] Metabolic Panel (NA, K, CL, CO2, GLUCOSE, BUN, CREATININE, CA)2024-07-20 21:38:19* Test Item Value Reference Range Interpretation Comme nts NA (test code = 0641456650) 134 mmol/L 135-145 L K (test code = 4661418638) 4.6 mmol/L 3.5-5.0 CL (test code = 0136784992) 107 mmol/L 98-108 CO2 TOTAL (test code = 2660143448) 26 mmol/L 23-31 AGAP (test code = 7961019362) 1 2-16 L BUN (test code = 7464457439) 15 mg/dL 7-23 GLUCOSE (test code = 7661930323) 141 mg/dL 70-110 H CREATININE (test code = 2160-0) 2.06 mg/dL 0.60-1.25 H CALCIUM (test code = 5317430748) 7.6 mg/dL 8.6-10.6 L eGFR (test code = 80821-7) 32.0 mL/min/1.73m2 CKD-EPI eGFR (2020). Assuming creatinine has been stable day-to-day for at least three months, the eGFR indicates Category G3b (30 - 44 mL/min/1.73 m2) Lab Interpretation (test code = 79630-6) Abnormal [facility] Metabolic Panel (NA, K, CL, CO2, GLUCOSE, BUN, CREATININE, CA)2024-07-20 21:38:19* Test Item Value Reference Range Interpretation Comme nts NA (test code = 3533367294) 134 mmol/L 135-145 L K (test code = 2273838519) 4.6 mmol/L 3.5-5.0 CL (test code = 5988523545) 107 mmol/L 98-108 CO2 TOTAL (test code = 4944821330) 26 mmol/L 23-31 AGAP (test code = 9706509203) 1 2-16 L BUN (test code = 3400399935) 15 mg/dL 7-23 GLUCOSE (test code = 6903569386) 141 mg/dL 70-110 H CREATININE (test code = 2160-0) 2.06 mg/dL 0.60-1.25 H CALCIUM (test code = 8968246054) 7.6 mg/dL 8.6-10.6 L eGFR (test code = 06547-4) 32.0 mL/min/1.73m2 CKD-EPI eGFR (2020). Assuming creatinine has been stable day-to-day for at least three months, the eGFR indicates Category G3b (30 - 44 mL/min/1.73 m2) Lab Interpretation (test code = 80536-5) Abnormal [facility] with [id number] 17:20:24* Test Item Value Reference Range Interpretation Comme nts WBC (test code = 6690-2) 7.03 4.20-10.70 RBC (test code = 789-8) 2.80 4.26-5.52 L HGB (test code = 718-7) 8.3 g/dL 12.2-16.4 L HCT (test code = 4544-3) 23.7 % 38.4-49.3 L MCV (test code = 787-2) 84.6 fL 81.7-95.6 MCH (test code = 785-6) 29.6 pg 26.1-32.7 MCHC (test code = 786-4) 35.0 g/dL 31.2-35.0 RDW-SD (test code = 42619-6) 47.5 fL 38.5-51.6 RDW-CV (test code = 788-0) 15.7 % 12.1-15.4 H PLT (test code = 777-3) 66 150-328 L MPV (test code = 04255-8) 10.5 fL 9.8-13.0 IPF % (test code = 6754643587) 4.0 % 1.2-10.7 Platelet count measured by fluorescence method. NRBC/100 WBC (test code = 0962111386) 0.0 0.0-10.0 NRBC x10^3 (test code = 6777644986) See_Comment [Automated messa ge] The system which generated this result transmitted reference range: 10*3/?L. The reference range was not used to interpret this result as normal/abnormal. GRAN MAT (NEUT) % (test code = 770-8) 71.9 % IMM GRAN % (test code = 2295930098) 0.30 % LYMPH % (test code = 736-9) 13.2 % MONO % (test code = 5905-5) 12.8 % EOS % (test code = 713-8) 1.1 % BASO % (test code = 706-2) 0.7 % GRAN MAT x10^3(ANC) (test code = 1506821080) 5.05 10*3/uL 1.99-6.95 IMM GRAN x10^3 (test code = 2650511560) 0.00-0.06 LYMPH x10^3 (test code = 731-0) 0.93 10*3/uL 1.09-3.23 L MONO x10^3 (test code = 742-7) 0.90 10*3/uL 0.36-1.02 EOS x10^3 (test code = 711-2) 0.08 10*3/uL 0.06-0.53 BASO x10^3 (test code = 704-7) 0.05 10*3/uL 0.01-0.09 Lab Interpretation (test code = 50990-3) Abnormal [facility] with [id number] 17:20:24* Test Item Value Reference Range Interpretation Comme nts WBC (test code = 6690-2) 7.03 4.20-10.70 RBC (test code = 789-8) 2.80 4.26-5.52 L HGB (test code = 718-7) 8.3 g/dL 12.2-16.4 L HCT (test code = 4544-3) 23.7 % 38.4-49.3 L MCV (test code = 787-2) 84.6 fL 81.7-95.6 MCH (test code = 785-6) 29.6 pg 26.1-32.7 MCHC (test code = 786-4) 35.0 g/dL 31.2-35.0 RDW-SD (test code = 97594-6) 47.5 fL 38.5-51.6 RDW-CV (test code = 788-0) 15.7 % 12.1-15.4 H PLT (test code = 777-3) 66 150-328 L MPV (test code = 85443-2) 10.5 fL 9.8-13.0 IPF % (test code = 6766219170) 4.0 % 1.2-10.7 Platelet count measured by fluorescence method. NRBC/100 WBC (test code = 0231491400) 0.0 0.0-10.0 NRBC x10^3 (test code = 9305737745) See_Comment [Automated [employer]] The system which generated this result transmitted reference range: 10*3/?L. The reference range was not used to interpret this result as normal/abnormal. GRAN MAT (NEUT) % (test code = 770-8) 71.9 % IMM GRAN % (test code = 1189352700) 0.30 % LYMPH % (test code = 736-9) 13.2 % MONO % (test code = 5905-5) 12.8 % EOS % (test code = 713-8) 1.1 % BASO % (test code = 706-2) 0.7 % GRAN MAT x10^3(ANC) (test code = 4291923936) 5.05 10*3/uL 1.99-6.95 IMM GRAN x10^3 (test code = 9322154692) 0.00-0.06 LYMPH x10^3 (test code = 731-0) 0.93 10*3/uL 1.09-3.23 L MONO x10^3 (test code = 742-7) 0.90 10*3/uL 0.36-1.02 EOS x10^3 (test code = 711-2) 0.08 10*3/uL 0.06-0.53 BASO x10^3 (test code = 704-7) 0.05 10*3/uL 0.01-0.09 Lab Interpretation (test code = 15748-8) [facility] (While Intubated) 2024-07-20 17:10:09* Test Item Value Reference Range Interpretation Comme nts PH (test code = 2) 7.39 7.35-7.45 PCO2 (test code = 3454879052) 35 35-45 PO2 (test code = 0945643191) 140 80-100 H HCO3 (test code = 7509286334) 21 22-26 L BE (test code = 9709210967) -3.5 -3.0-3.0 L THB (test code = 5243556233) 11.9 g/dL 13.5-18.0 L %O2HB (test code = 5660909821) 97.8 % 94.0-99.0 %COHB ART (test code = 8377412721) 0.7 % 0.0-1.5 %METHB ART (test code = 0885799181) 0.0 % 0.4-1.5 L VOL%O2 ART (test code = 2655644211) 16.6 % 15.0-23.0 NA (test code = 9872690879) 133 mmol/L 135-145 L K+ (test code = 7099805713) 4.7 mmol/L 3.5-5.0 AC CA IONZ (test code = 0706884546) 4.60 mg/dL 4.50-5.30 GLUCOSE (test code = 5969182534) 152 mg/dL 70-110 H Lab Interpretation (test cod e = 62672-4) [facility]+GLU[facility]CA2+ (While Intubated) 2024-07-20 17:10:09* Test Item Value Reference Range Interpretation Comme nts PH (test code = 2) 7.39 7.35-7.45 PCO2 (test code = 2525813853) 35 35-45 PO2 (test code = 4740136578) 140 80-100 H HCO3 (test code = 4421743525) 21 22-26 L BE (test code = 0828207987) -3.5 -3.0-3.0 L THB (test code = 8321046280) 11.9 g/dL 13.5-18.0 L %O2HB (test code = 8318993494) 97.8 % 94.0-99.0 %COHB ART (test code = 8624565172) 0.7 % 0.0-1.5 %METHB ART (test code = 5747427811) 0.0 % 0.4-1.5 L VOL%O2 ART (test code = 5923741067) 16.6 % 15.0-23.0 NA (test code = 5469922969) 133 mmol/L 135-145 L K+ (test code = 6611379084) 4.7 mmol/L 3.5-5.0 AC CA IONZ (test code = 4725723228) 4.60 mg/dL 4.50-5.30 GLUCOSE (test code = 7682507166) 152 mg/dL 70-110 H Lab Interpretation (test cod e = 06942-5) Abnormal [facility] 1 [id number] 15:39:18ORDERING PHYSICIAN: LANE RODRIGUEZ HISTORY: ?Status post open-heart surgery. TECHNIQUE: ?Frontal view of the chest. COMPARISON: ?None available. FINDINGS: ? Distal tip of endotracheal tube measuring 8.8cm from dante. Mediansternotomy wires. Dual lumen right IJ central line distal tip at theinferior aspect of SVC. Left IJ [place] catheter distal tip at mainpulmonary outflow tract. Left chest tubein place. Heart size unremarkable. Minimal bibasilar airspace opacities. Very smallleft-sided pleural effusion. No pneumothorax.[facility] 1 [id number] 15:39:18ORDERING PHYSICIAN: LANE RODRIGUEZ HISTORY: ?Status post open-heart surgery. TECHNIQUE: ?Frontal view of the chest. COMPARISON: ?None available. FINDINGS: ? Distal tip of endotracheal tube measuring 8.8cm from dante. Mediansternotomy wires. Dual lumen right IJ central line distal tip at theinferior aspect of SVC. Left IJ [place] catheter distal tip at mainpulmonary outflow tract. Left chest tubein place. Heart size unremarkable. Minimal bibasilar airspace opacities. Very smallleft-sided pleural effusion. No pneumothorax.[facility] Packed RBC (in units), 1 [id number] 14:07:15* Test Item Value Reference Range Interpretation Comme nts Cross Match Result (test code = 4409) Compatible ISBT Blood Type Code (test code = 309511) 6200 Unit Blood Type (test code = 4410) A Pos Unit Number (test code = 4411) [id number] Blood Expiration Date & Time (test code = 394044) [id number] Status Information (test code = 4412) Issued Product Identification (test code = 4413) Red Blood Cells Product Code (test code = 4414) [id number] Performed at [facility] B Laboratory Services - [facility] Blood [id number] [place] [address]Kigv Free: [phone] No. [id number] [facility] Packed RBC (in units), 1 Units 2024-07-20 14:07:15* Test Item Value Reference Range Interpretation Comme nts Cross Match Result (test code = 4409) Compatible ISBT Blood Type Code (test code = 814267) 6200 Unit Blood Type (test code = 4410) A Pos Unit Number (test code = 4411) [id number] Blood Expiration Date & Time (test code = 362556) [id number] Status Information (test code = 4412) Issued Product Identification (test code = 4413) Red Blood Cells Product Code (test code = 4414) [id number] Performed at [facility] Laboratory [facility] Blood [address] [address]Fghu Free: [phone] No. [id number] [facility] Random [id number] 12:09:22* Test Item Value Reference Range Interpretation Comme nts VANCO RANDOM (test code = 97330-4) 16.8 ug/mL [facility] Random Tevlg0226-27-22 12:09:22* Test Item Value Reference Range Interpretation Comme nts VANCO RANDOM (test code = 79829-0) 16.8 [facility] 1 Units 2024-07-20 11:27:26* Test Item Value Reference Range Interpretation Comme nts Cross Match Result (test code = 4409) Compatible ISBT Blood Type Code (test code = 429430) 600 Unit Blood Type (test code = 4410) A Neg Unit Number (test code = 4411) [id number] Blood Expiration Date & Time (test code = 580190) [id number] Status Information (test code = 4412) Issued Product Identification (test code = 4413) Red Blood Cells Product Code (test code = 4414) [id number] Performed at [facility] Blood [address] [address]Eouf Free: [phone] No. [id number] [facility] (in units), 1 Units 2024-07-20 11:27:26* Test Item Value Reference Range Interpretation Comme nts Cross Match Result (test code = 4409) Compatible ISBT Blood Type Code (test code = 270109) 600 Unit Blood Type (test code = 4410) A Neg Unit Number (test code = 4411) [id number] Blood Expiration Date & Time (test code = 696640) [id number] Status Information (test code = 4412) Issued Product Identification (test code = 4413) Red Blood Cells Product Code (test code = 4414) [id number] Performed at [facility] Laboratory Services [facility] Blood [address] [address]Kwgw Free: [phone] No. [id number] [facility] with Vstr5148-10-31 11:21:01* Test Item Value Reference Range Interpretation Comme nts WBC (test code = 6690-2) 7.73 4.20-10.70 RBC (test code = 789-8) 2.41 4.26-5.52 L HGB (test code = 718-7) 7.3 g/dL 12.2-16.4 L HCT (test code = 4544-3) 20.9 % 38.4-49.3 L MCV (test code = 787-2) 86.7 fL 81.7-95.6 MCH (test code = 785-6) 30.3 pg 26.1-32.7 MCHC (test code = 786-4) 34.9 g/dL 31.2-35.0 RDW-SD (test code = 56175-8) 49.6 fL 38.5-51.6 RDW-CV (test code = 788-0) 15.5 % 12.1-15.4 H PLT (test code = 777-3) 73 150-328 L MPV (test code = 78516-2) 10.6 fL 9.8-13.0 IPF % (test code = 9525706892) 3.8 % 1.2-10.7 Platelet count measured by fluorescence method. NRBC/100 WBC (test code = 8752187777) 0.0 0.0-10.0 NRBC x10^3 (test code = 2207679088) See_Comment [Automated messa ge] The system which generated this result transmitted reference range: 10*3/?L. The reference range was not used to interpret this result as normal/abnormal. GRAN MAT (NEUT) % (test code = 770-8) 76.8 % IMM GRAN % (test code = 5380192567) 0.50 % LYMPH % (test code = 736-9) 9.6 % MONO % (test code = 5905-5) 12.7 % EOS % (test code = 713-8) 0.1 % BASO % (test code = 706-2) 0.3 % GRAN MAT x10^3(ANC) (test code = 7671355178) 5.94 10*3/uL 1.99-6.95 IMM GRAN x10^3 (test code = 2349801333) 0.04 10*3/uL 0.00-0.06 LYMPH x10^3 (test code = 731-0) 0.74 10*3/uL 1.09-3.23 L MONO x10^3 (test code = 742-7) 0.98 10*3/uL 0.36-1.02 EOS x10^3 (test code = 711-2) 0.06-0.53 L BASO x10^3 (test code = 704-7) 0.01-0.09 Lab Interpretation (test code = 46339-4) Abnormal [facility] with Grsj6938-99-83 11:21:01* Test Item Value Reference Range Interpretation Comme nts WBC (test code = 6690-2) 7.73 4.20-10.70 RBC (test code = 789-8) 2.41 4.26-5.52 L HGB (test code = 718-7) 7.3 g/dL 12.2-16.4 L HCT (test code = 4544-3) 20.9 % 38.4-49.3 L MCV (test code = 787-2) 86.7 fL 81.7-95.6 MCH (test code = 785-6) 30.3 pg 26.1-32.7 MCHC (test code = 786-4) 34.9 g/dL 31.2-35.0 RDW-SD (test code = 13497-8) 49.6 fL 38.5-51.6 RDW-CV (test code = 788-0) 15.5 % 12.1-15.4 H PLT (test code = 777-3) 73 150-328 L MPV (test code = 34634-8) 10.6 fL 9.8-13.0 IPF % (test code = 8789785940) 3.8 % 1.2-10.7 Platelet count measured by fluorescence method. NRBC/100 WBC (test code = 8021724244) 0.0 0.0-10.0 NRBC x10^3 (test code = 7504547453) See_Comment [Automated messa ge] The system which generated this result transmitted reference range: 10*3/?L. The reference range was not used to interpret this result as normal/abnormal. GRAN MAT (NEUT) % (test code = 770-8) 76.8 % IMM GRAN % (test code = 3592565420) 0.50 % LYMPH % (test code = 736-9) 9.6 % MONO % (test code = 5905-5) 12.7 % EOS % (test code = 713-8) 0.1 % BASO % (test code = 706-2) 0.3 % GRAN MAT x10^3(ANC) (test code = 3186275980) 5.94 10*3/uL 1.99-6.95 IMM GRAN x10^3 (test code = 3587045644) 0.04 10*3/uL 0.00-0.06 LYMPH x10^3 (test code = 731-0) 0.74 10*3/uL 1.09-3.23 L MONO x10^3 (test code = 742-7) 0.98 10*3/uL 0.36-1.02 EOS x10^3 (test code = 711-2) 0.06-0.53 L BASO x10^3 (test code = 704-7) 0.01-0.09 Lab Interpretation (test code = 64673-6) [facility]59* Test Item Value Reference Range Interpretation Comme nts MAGNESIUM (test code = 4920721347) 3.3 mg/dL 1.7-2.4 H Lab Interpretation (test cod e = 10149-1) [facility] 10:57:59* Test Item Value Reference Range Interpretation Comme nts PHOSPHORUS (test code = 2691827421) 3.9 mg/dL 2.5-5.0 Lab Interpretation (test cod e = 07772-3) [facility] (NA, K, CL, CO2, GLUCOSE, BUN, CREATININE, CA)2024-07-20 10:57:59* Test Item Value Reference Range Interpretation Comme nts NA (test code = 8338176775) 135 mmol/L 135-145 K (test code = 6209632729) 4.9 mmol/L 3.5-5.0 CL (test code = 6639917069) 110 mmol/L 98-108 H CO2 TOTAL (test code = 8005222457) 20 mmol/L 23-31 L AGAP (test code = 9035797873) 5 2-16 BUN (test code = 9851076447) 17 mg/dL 7-23 GLUCOSE (test code = 4128826272) 156 mg/dL 70-110 H CREATININE (test code = 2160-0) 2.13 mg/dL 0.60-1.25 H CALCIUM (test code = 5340557018) 7.5 mg/dL 8.6-10.6 L eGFR (test code = 83522-0) 30.7 mL/min/1.73m2 CKD-EPI eGFR (2020). Assuming creatinine has been stable day-to-day for at least three months, the eGFR indicates Category G3b (30 - 44 mL/min/1.73 m2) Lab Interpretation (test code = 42891-0) [facility] 10:57:59* Test Item Value Reference Range Interpretation Comme nts MAGNESIUM (test code = 9368471489) 3.3 mg/dL 1.7-2.4 H Lab Interpretation (test cod e = 52748-6) [facility] 10:57:59* Test Item Value Reference Range Interpretation Comme nts PHOSPHORUS (test code = 7385696041) 3.9 mg/dL 2.5-5.0 Lab Interpretation (test cod e = 41094-0) [facility] (NA, K, CL, CO2, GLUCOSE, BUN, CREATININE, CA)2024-07-20 10:57:59* Test Item Value Reference Range Interpretation Comme [facility] NA (test code = 8112413574) 135 mmol/L 135-145 K (test code = 6007663560) 4.9 mmol/L 3.5-5.0 CL (test code = 3755770569) 110 mmol/L 98-108 H CO2 TOTAL (test code = 5092030114) 20 mmol/L 23-31 L AGAP (test code = 5362693102) 5 2-16 BUN (test code = 9168203377) 17 mg/dL 7-23 GLUCOSE (test code = 2434846415) 156 mg/dL 70-110 H CREATININE (test code = 2160-0) 2.13 mg/dL 0.60-1.25 H CALCIUM (test code = 0408247872) 7.5 mg/dL 8.6-10.6 L eGFR (test code = 83627-2) 30.7 mL/min/1.73m2 CKD-EPI eGFR (2020). Assuming creatinine has been stable day-to-day for at least three months, the eGFR indicates Category G3b (30 - 44 mL/min/1.73 m2) Lab Interpretation (test code = 41527-0) [facility] / [id number] 10:43:34* Test Item Value Reference Range Interpretation Comme [facility] PROTIME PATIENT (test code = 5964-2) 13.7 10.1-12.6 H INR (test code = 6301-6) 1.2 Normal INR <1.1; Warfarin Therapeutic range 2.0 to 3.0 or 2.5 to 3.5, depending upon the indications. Lab Interpretation (test code = 61009-5) [facility]normal [facility] / [id number] 10:43:34* Test Item Value Reference Range Interpretation Comme [facility] PROTIME PATIENT (test code = 5964-2) 13.7 10.1-12.6 H INR (test code = 6301-6) 1.2 Normal INR <1.1; Warfarin Therapeutic range 2.0 to 3.0 or 2.5 to 3.5, depending upon the indications. Lab Interpretation (test code = 89676-3) [facility] + Lactic Negw3237-06-86 06:16:33* Test Item Value Reference Range Interpretation Comme nts PH (test code = 2) 7.34 7.35-7.45 L PCO2 (test code = 1005339919) 35 35-45 PO2 (test code = 8934324211) 112 80-100 H HCO3 (test code = 3397203158) 18 22-26 L BE (test code = 3837722878) -6.6 -3.0-3.0 L THB (test code = 6999698660) 8.0 g/dL 13.5-18.0 LL %O2HB (test code = 3313694187) 96.1 % 94.0-99.0 %COHB ART (test code = 9625193618) 1.3 % 0.0-1.5 %METHB ART (test code = 4583280088) 0.3 % 0.4-1.5 L VOL%O2 ART (test code = 1714050088) 11.0 % 15.0-23.0 L NA (test code = 4679781685) 132 mmol/L 135-145 L K+ (test code = 9745556586) 5.2 mmol/L 3.5-5.0 H AC CA IONZ (test code = 4724600302) 4.50 mg/dL 4.50-5.30 GLUCOSE (test code = 3836499489) 177 mg/dL 70-110 H LACTIC ACID (test code = 8930002577) 0.78 mmol/L 0.50-2.20 Lab Interpretation (test cod e = 78228-4) [facility] + Lactic Mdav7672-15-63 06:16:33* Test Item Value Reference Range Interpretation Comme nts PH (test code = 2) 7.34 7.35-7.45 L PCO2 (test code = 2393092744) 35 35-45 PO2 (test code = 2219727009) 112 80-100 H HCO3 (test code = 7203686045) 18 22-26 L BE (test code = 0977774111) -6.6 -3.0-3.0 L THB (test code = 8442975518) 8.0 g/dL 13.5-18.0 LL %O2HB (test code = 3703042536) 96.1 % 94.0-99.0 %COHB ART (test code = 8206173209) 1.3 % 0.0-1.5 %METHB ART (test code = 5945638901) 0.3 % 0.4-1.5 L VOL%O2 ART (test code = 4466927592) 11.0 % 15.0-23.0 L NA (test code = 2179094007) 132 mmol/L 135-145 L K+ (test code = 4088986192) 5.2 mmol/L 3.5-5.0 H AC CA IONZ (test code = 2108862998) 4.50 mg/dL 4.50-5.30 GLUCOSE (test code = 1380389189) 177 mg/dL 70-110 H LACTIC ACID (test code = 4289480027) 0.78 mmol/L 0.50-2.20 Lab Interpretation (test cod e = 37623-4) Abnormal [facility] 1 View (on admission)2024-07-20 04:32:33 Chest X-Ray Indication: s/p open heart surgery ? Technique: Frontal view(s) of the chest submitted for interpretation. Comparison: 05/28/2024 ? Ordering Clinician: LAURA SHERMAN Technical Quality: Adequate Findings: 1. ?Partially consolidative opacities of the retrocardiac space. Linearatelectatic opacities of the left lower lobe and right lower lobe as well.Upper lobes appear well-aerated. No sizable pleural effusion orpneumothorax.2. ?Right neck approach central vascular catheter terminating within theright atrium.3. ?Left neck approach pulmonary artery catheter.4. ?Endotracheal tube terminating 6.7 cm above the dante.5. ?Enteric tube terminating outside the isbkc-pd-apqm of the s tomach.6. ?2 drains/tubes are seen terminating within the mid mediastinum and theleft lower hemithorax.7. ?Interval sternotomy wires. End of report [facility] 1 View (on admission)2024-07-20 04:32:33Chest X-Ray Indication: s/p open heart surgery ? Technique: Frontal view(s) of the chest submitted for interpretation. Comparison: 05/28/2024 ? Ordering Clinician: LAURA SHERMAN Technical Quality: Adequate Findings: 1. ?Partially consolidative opacities of the retrocardiac space. Linearatelectatic opacities of the left lower lobe and right lower lobe as well.Upper lobes appear well-aerated. No sizable pleural effusion orpneumothorax.2. ?Right neck approach central vascular catheter terminating within theright atrium.3. ?Left neck approach pulmonary artery catheter.4. ?Endotracheal tube terminating 6.7 cm above the dante.5. ?Enteric tube terminating outside the kqpwp-dx-wvin of the s tomach.6. ?2 drains/tubes are seen terminating within the mid mediastinum and theleft lower hemithorax.7. ?Interval sternotomy wires. End of report [facility] Packed RBC (in units), 1 Wmiay9885-46-94 03:37:44* Test Item Value Reference Range Interpretation Comme nts Cross Match Result (test code = 4409) Compatible ISBT Blood Type Code (test code = 962441) 6200 Unit Blood Type (test code = 4410) A Pos Unit Number (test code = 4411) [id number] Blood Expiration Date & Time (test code = 559981) 831620958347 Status Information (test code = 4412) Issued Product Identification (test code = 4413) Red Blood Cells Product Code (test code = 4414) [id number] Performed at [facility] B Laboratory Services - [facility] Blood [address] [place] [address]Evbc Free: [phone] No. [id number] [facility] Packed RBC (in units), 1 Units 2024-07-20 03:37:44* Test Item Value Reference Range Interpretation Comme nts Cross Match Result (test code = 4409) Compatible ISBT Blood Type Code (test code = 821798) 6200 Unit Blood Type (test code = 4410) A Pos Unit Number (test code = 4411) [id number] Blood Expiration Date & Time (test code = 895468) 996341150283 Status Information (test code = 4412) Issued Product Identification (test code = 4413) Red Blood Cells Product Code (test code = 4414) [id number] Performed at [facility] Laboratory Services [facility] Blood [address] [address]Rfkc Free: [phone] No. [id number] [facility] XRay 1 Ajtk4881-17-10 02:54:00EXAM: XR ABDOMEN 1 VW HISTORY: 79 years-old Male; Provided indication: OGT placement . TECHNIQUE: Frontal view of the abdomen and pelvis COMPARISON: [facility] abdomen [facility] 2024-07-20 02:54:00EXAM: XR ABDOMEN 1 VW HISTORY: 79 years-old Male; Provided indication: OGT placement . TECHNIQUE: Frontal view of the abdomen and pelvis COMPARISON: [facility] abdomen pelvis [facility] Ofle7362-98-63 02:07:16* Test Item Value Reference Range Interpretation Comme nts WBC (test code = 6690-2) 8.26 4.20-10.70 RBC (test code = 789-8) 2.41 4.26-5.52 L HGB (test code = 718-7) 7.5 g/dL 12.2-16.4 L HCT (test code = 4544-3) 21.6 % 38.4-49.3 L MCV (test code = 787-2) 89.6 fL 81.7-95.6 MCH (test code = 785-6) 31.1 pg 26.1-32.7 MCHC (test code = 786-4) 34.7 g/dL 31.2-35.0 RDW-SD (test code = 36451-2) 46.1 fL 38.5-51.6 RDW-CV (test code = 788-0) 14.1 % 12.1-15.4 PLT (test code = 777-3) 80 150-328 L MPV (test code = 00898-2) 9.7 fL 9.8-13.0 L IPF % (test code = 9184522647) 2.2 % 1.2-10.7 Platelet count measured by fluorescence method. NRBC/100 WBC (test code = 3584942308) 0.0 0.0-10.0 NRBC x10^3 (test code = 3953556043) See_Comment [Automated messa ge] The system which generated this result transmitted reference range: 10*3/?L. The reference range was not used to interpret this result as normal/abnormal. GRAN MAT (NEUT) % (test code = 770-8) 78.9 % IMM GRAN % (test code = 7999317650) 0.70 % LYMPH % (test code = 736-9) 7.3 % MONO % (test code = 5905-5) 12.3 % EOS % (test code = 713-8) 0.6 % BASO % (test code = 706-2) 0.2 % GRAN MAT x10^3(ANC) (test code = 6393008607) 6.51 10*3/uL 1.99-6.95 IMM GRAN x10^3 (test code = 2129874380) 0.06 10*3/uL 0.00-0.06 LYMPH x10^3 (test code = 731-0) 0.60 10*3/uL 1.09-3.23 L MONO x10^3 (test code = 742-7) 1.02 10*3/uL 0.36-1.02 EOS x10^3 (test code = 711-2) 0.05 10*3/uL 0.06-0.53 L BASO x10^3 (test code = 704-7) 0.01-0.09 Lab Interpretation (test code = 52253-1) Abnormal [facility] with Nnkq3776-82-50 02:07:16* Test Item Value Reference Range Interpretation Comme nts WBC (test code = 6690-2) 8.26 4.20-10.70 RBC (test code = 789-8) 2.41 4.26-5.52 L HGB (test code = 718-7) 7.5 g/dL 12.2-16.4 L HCT (test code = 4544-3) 21.6 % 38.4-49.3 L MCV (test code = 787-2) 89.6 fL 81.7-95.6 MCH (test code = 785-6) 31.1 pg 26.1-32.7 MCHC (test code = 786-4) 34.7 g/dL 31.2-35.0 RDW-SD (test code = 10432-7) 46.1 fL 38.5-51.6 RDW-CV (test code = 788-0) 14.1 % 12.1-15.4 PLT (test code = 777-3) 80 150-328 L MPV (test code = 18171-2) 9.7 fL 9.8-13.0 L IPF % (test code = 3950930541) 2.2 % 1.2-10.7 Platelet count measured by fluorescence method. NRBC/100 WBC (test code = 9118459490) 0.0 0.0-10.0 NRBC x10^3 (test code = 6493386969) See_Comment [Automated [employer] ge] The system which generated this result transmitted reference range: 10*3/?L. The reference range was not used to interpret this result as normal/abnormal. GRAN MAT (NEUT) % (test code = 770-8) 78.9 % IMM GRAN % (test code = 1144243667) 0.70 % LYMPH % (test code = 736-9) 7.3 % MONO % (test code = 5905-5) 12.3 % EOS % (test code = 713-8) 0.6 % BASO % (test code = 706-2) 0.2 % GRAN MAT x10^3(ANC) (test code = 6042549497) 6.51 10*3/uL 1.99-6.95 IMM GRAN x10^3 (test code = 7510996179) 0.06 10*3/uL 0.00-0.06 LYMPH x10^3 (test code = 731-0) 0.60 10*3/uL 1.09-3.23 L MONO x10^3 (test code = 742-7) 1.02 10*3/uL 0.36-1.02 EOS x10^3 (test code = 711-2) 0.05 10*3/uL 0.06-0.53 L BASO x10^3 (test code = 704-7) 0.01-0.09 Lab Interpretation (test code = 27598-9) [facility]GLU[facility]CA2+2024-07-20 01:12:46* Test Item Value Reference Range Interpretation Comme nts PH (test code = 2) 7.38 7.35-7.45 PCO2 (test code = 4280819694) 37 35-45 PO2 (test code = 8204711240) 457 80-100 H HCO3 (test code = 9988555878) 21 22-26 L BE (test code = 6490634178) -3.8 -3.0-3.0 L THB (test code = 0797611895) 8.0 g/dL 13.5-18.0 LL %O2HB (test code = 4159846992) 98.0 % 94.0-99.0 %COHB ART (test code = 9913087094) 0.7 % 0.0-1.5 %METHB ART (test code = 9941335014) 0.6 % 0.4-1.5 VOL%O2 ART (test code = 5107440375) 12.3 % 15.0-23.0 L QUES NA (test code = 0319708512) 133 mmol/L 135-145 L K+ (test code = 1436399474) 5.5 mmol/L 3.5-5.0 H AC CA IONZ (test code = 1955390238) 4.40 mg/dL 4.50-5.30 L GLUCOSE (test code = 2650011845) 123 mg/dL 70-110 H Lab Interpretation (test cod e = 62748-5) [facility]+K+GLU+CA2+2024-07-20 01:12:46* Test Item Value Reference Range Interpretation Comme nts PH (test code = 2) 7.38 7.35-7.45 PCO2 (test code = 7093708663) 37 35-45 PO2 (test code = 4213807055) 457 80-100 H HCO3 (test code = 4529747447) 21 22-26 L BE (test code = 4540267702) -3.8 -3.0-3.0 L THB (test code = 7857970587) 8.0 g/dL 13.5-18.0 LL %O2HB (test code = 3834942234) 98.0 % 94.0-99.0 %COHB ART (test code = 8015695675) 0.7 % 0.0-1.5 %METHB ART (test code = 8187977014) 0.6 % 0.4-1.5 VOL%O2 ART (test code = 1633480494) 12.3 % 15.0-23.0 L QUES NA (test code = 0992634085) 133 mmol/L 135-145 L K+ (test code = 9018567833) 5.5 mmol/L 3.5-5.0 H AC CA IONZ (test code = 7388984936) 4.40 mg/dL 4.50-5.30 L GLUCOSE (test code = 7126897080) 123 mg/dL 70-110 H Lab Interpretation (test cod e = 75136-7) [facility] 00:54:53* Test Item Value Reference Range Interpretation Comme nts MAGNESIUM (test code = 4479002592) 4.8 mg/dL 1.7-2.4 H Lab Interpretation (test cod e = 59051-1) [facility]:53* Test Item Value Reference Range Interpretation Comme nts MAGNESIUM (test code = 4759961143) 4.8 mg/dL 1.7-2.4 H Lab Interpretation (test cod e = 85945-9) [facility]normal [facility]COEL[facility]IC RRDTXZQ8189-88-16 00:53:46* Test Item Value Reference Range Interpretation Comme nts Clot Time (test code = 5835253148) 147 104-166 Heparinase Clot Time (test c ode = 1216152903) 144 103-153 Clot Stiffness (test code = 7811193208) 9.9 hPa 13.0-33.2 L Fibrinogen Contribution to C lot Stiffness (test code = 4500538878) 1.6 hPa 1.0-3.7 Platelet Contribution to Julianna t Stiffness (test code = 0427752806) 8.3 hPa 11.9-29.8 L Clot Time Ratio (test code = 6422250609) 1.0 Ratio Lab Interpretation (test cod e = 62300-1) [facility]normal [facility] OVKXEQV1120-14-28 00:53:46* Test Item Value Reference Range Interpretation Comme nts Clot Time (test code = 2429164805) 147 104-166 Heparinase Clot Time (test c ode = 1566190329) 144 103-153 Clot Stiffness (test code = 6300014717) 9.9 hPa 13.0-33.2 L Fibrinogen Contribution to C lot Stiffness (test code = 5426294267) 1.6 hPa 1.0-3.7 Platelet Contribution to Julianna t Stiffness (test code = 7612331450) 8.3 hPa 11.9-29.8 L Clot Time Ratio (test code = 6406085954) 1.0 Ratio Lab Interpretation (test cod e = 39604-1) Abnormal [facility]. Metabolic Panel (15931)2024-07-20 00:50:24* Test Item Value Reference Range Interpretation Comme nts NA (test code = 1405134501) 134 mmol/L 135-145 L K (test code = 5368572865) 5.5 mmol/L 3.5-5.0 H CL (test code = 8410347123) 108 mmol/L 98-108 CO2 TOTAL (test code = 0547300544) 23 mmol/L 23-31 AGAP (test code = 9482791789) 3 2-16 BUN (test code = 1721376810) 19 mg/dL 7-23 GLUCOSE (test code = 2176961025) 125 mg/dL 70-110 H CREATININE (test code = 2160-0) 2.38 mg/dL 0.60-1.25 H TOTAL BILI (test code = 1266420412) 1.7 mg/dL 0.1-1.1 H CALCIUM (test code = 8588667502) 7.2 mg/dL 8.6-10.6 L T PROTEIN (test code = 3403385365) 3.6 g/dL 6.3-8.2 L ALBUMIN (test code = 7774802464) 1.9 g/dL 3.5-5.0 L ALK PHOS (test code = 7370109990) 23 U/L 34-122 L ALTv (test code = 1742-6) 12 U/L 5-50 AST(SGOT) (test code = 8565335778) 33 U/L 13-40 eGFR (test code = 25453-2) 26.9 mL/min/1.73m2 CKD-EPI eGFR (2020). Assuming creatinine has been stable day-to-day for at least three months, the eGFR indicates Category G4 (15 - 29 mL/min/1.73 m2) Lab Interpretation (test code = 15796-7) [facility] 00:50:24* Test Item Value Reference Range Interpretation Comme nts PHOSPHORUS (test code = 6886030086) 3.4 mg/dL 2.5-5.0 Lab Interpretation (test cod e = 02468-5) Normal [facility] (49331)2024-07-20 00:50:24* Test Item Value Reference Range Interpretation Comme nts NA (test code = 5118440243) 134 mmol/L 135-145 L K (test code = 1532682278) 5.5 mmol/L 3.5-5.0 H CL (test code = 5239184656) 108 mmol/L 98-108 CO2 TOTAL (test code = 6186242972) 23 mmol/L 23-31 AGAP (test code = 2731194331) 3 2-16 BUN (test code = 2983121567) 19 mg/dL 7-23 GLUCOSE (test code = 6205494120) 125 mg/dL 70-110 H CREATININE (test code = 2160-0) 2.38 mg/dL 0.60-1.25 H TOTAL BILI (test code = 0321253732) 1.7 mg/dL 0.1-1.1 H CALCIUM (test code = 5496627863) 7.2 mg/dL 8.6-10.6 L T PROTEIN (test code = 9162230108) 3.6 g/dL 6.3-8.2 L ALBUMIN (test code = 0955859748) 1.9 g/dL 3.5-5.0 L ALK PHOS (test code = 4855191036) 23 U/L 34-122 L ALTv (test code = 1742-6) 12 U/L 5-50 AST(SGOT) (test code = 0025525299) 33 U/L 13-40 eGFR (test code = 77626-0) 26.9 mL/min/1.73m2 CKD-EPI eGFR (2020). Assuming creatinine has been stable day-to-day for at least three months, the eGFR indicates Category G4 (15 - 29 mL/min/1.73 m2) Lab Interpretation (test code = 81717-6) [facility] 00:50:24* Test Item Value Reference Range Interpretation Comme nts PHOSPHORUS (test code = 3228502639) 3.4 mg/dL 2.5-5.0 Lab Interpretation (test cod e = 40329-4) Normal [facility] VISCOELASTIC BLGZSEJ7065-88-88 00:19:17* Test Item Value Reference Range Interpretation Comme nts Clot Time (test code = 7578857205) 144 104-166 Heparinase Clot Time (test c ode = 3557197277) 141 103-153 Clot Stiffness (test code = 6005702357) 10.9 hPa 13.0-33.2 L Fibrinogen Contribution to C lot Stiffness (test code = 5366255225) 1.6 hPa 1.0-3.7 Platelet Contribution to Julianna t Stiffness (test code = 9423242900) 9.3 hPa 11.9-29.8 L Clot Time Ratio (test code = 5930192429) 1.0 Ratio Lab Interpretation (test cod e = 43743-4) Abnormal [facility] VISCOEL[employer] [id number] 00:19:17* Test Item Value Reference Range Interpretation Comme nts Clot Time (test code = 8373222231) 144 104-166 Heparinase Clot Time (test c ode = 6638762120) 141 103-153 Clot Stiffness (test code = 4354943596) 10.9 hPa 13.0-33.2 L Fibrinogen Contribution to C lot Stiffness (test code = 4531899151) 1.6 hPa 1.0-3.7 Platelet Contribution to Julianna t Stiffness (test code = 6842979040) 9.3 hPa 11.9-29.8 L Clot Time Ratio (test code = 3435212978) 1.0 Ratio Lab Interpretation (test cod e = 38211-2) Abnormal [facility] Platelets (in units): 2 Units~ 2024-07-19 23:37:58* Test Item Value Reference Range Interpretation Comme nts Unit Blood Type (test code = 4410) AB Pos ISBT Blood Type Code (test code = 022813) 8400 Unit Number (test code = 4411) [id number] Blood Expiration Date & Time (test code = 336824) [id number] Status Information (test code = 4412) Issued Product Identification (test code = 4413) Platelets Product Code (test code = 4414) [id number] Performed at [facility] Blood [address] Free: [phone] No. [id number] [facility] Platelets (in units): 2 Units~ 2024-07-19 23:37:58* Test Item Value Reference Range Interpretation Comme [facility] Unit Blood Type (test code = 4410) AB Pos ISBT Blood Type Code (test code = 854946) 8400 Unit Number (test code = 4411) [id number] Blood Expiration Date & Time (test code = 363617) [id number] Status Information (test code = 4412) Issued Product Identification (test code = 4413) Platelets Product Code (test code = 4414) [id number] Performed at [facility] Blood [address] Free: [phone] No. [id number] [facility] Cryoprecipitate (in units): 2 Units~ 2024-07-19 22:50:43* Test Item Value Reference Range Interpretation Comme nts Unit Blood Type (test code = 4410) A Pos ISBT Blood Type Code (test code = 500989) 6200 Unit Number (test code = 4411) [id number] Blood Expiration Date & Time (test code = 252388) [id number] Status Information (test code = 4412) Issued Product Identification (test code = 4413) Cryoprecipitate Product Code (test code = 4414) [id number] Performed at [facility] Blood [address] Free: [phone] [id number] Units~ 2024-07-19 22:50:43* Test Item Value Reference Range Interpretation Comme nts Unit Blood Type (test code = 4410) A Pos ISBT Blood Type Code (test code = 625748) 6200 Unit Number (test code = 4411) [id number] Blood Expiration Date & Time (test code = 730712) [id number] Status Information (test code = 4412) Issued Product Identification (test code = 4413) Cryoprecipitate Product Code (test code = 4414) [id number] Performed at [facility] Blood [address] Free: [phone] No. [id number] [facility] [employer] [id number] 22:46:46* Test Item Value Reference Range Interpretation Comme nts Clot Time (test code = 1574354984) 151 104-166 Heparinase Clot Time (test c ode = 0154337605) 136 103-153 Clot Stiffness (test code = 1886003521) 9.9 hPa 13.0-33.2 L Fibrinogen Contribution to C lot Stiffness (test code = 8555080126) 1.5 hPa 1.0-3.7 Platelet Contribution to Julianna t Stiffness (test code = 4075272277) 8.4 hPa 11.9-29.8 L Clot Time Ratio (test code = 4026130487) 1.1 Ratio Lab Interpretation (test cod e = 51233-2) Abnormal [facility] VISCOELASTIC SWURLLL3102-13-76 22:46:46* Test Item Value Reference Range Interpretation Comme nts Clot Time (test code = 0284161889) 151 104-166 Heparinase Clot Time (test c ode = 0620746286) 136 103-153 Clot Stiffness (test code = 7293786113) 9.9 hPa 13.0-33.2 L Fibrinogen Contribution to C lot Stiffness (test code = 9436574156) 1.5 hPa 1.0-3.7 Platelet Contribution to Julianna t Stiffness (test code = 1685469428) 8.4 hPa 11.9-29.8 L Clot Time Ratio (test code = 2026664840) 1.1 Ratio Lab Interpretation (test cod e = 93393-1) Abnormal [facility] Platelets (in units): 2 Units~ 2024-07-19 21:51:45* Test Item Value Reference Range Interpretation Comme nts Unit Blood Type (test code = 4410) A Pos ISBT Blood Type Code (test code = 496838) 6200 Unit Number (test code = 4411) [id number] Blood Expiration Date & Time (test code = 411413) [id number] Status Information (test code = 4412) Issued Product Identification (test code = 4413) Platelets Product Code (test code = 4414) [id number] Performed at [facility] Blood [place] [id number] Free: [phone] No. [id number] [facility] Platelets (in units): 2 Units~ 2024-07-19 21:51:45* Test Item Value Reference Range Interpretation Comme nts Unit Blood Type (test code = 4410) A Pos ISBT Blood Type Code (test code = 938531) 6200 Unit Number (test code = 4411) [id number] Blood Expiration Date & Time (test code = 801326) [id number] Status Information (test code = 4412) Issued Product Identification (test code = 4413) Platelets Product Code (test code = 4414) [id number] Performed at [facility] Blood [place] [id number] Free: [phone] [facility]. [id number] [facility] GUIHNRS2216-22-73 21:36:47* Test Item Value Reference Range Interpretation Comme nts Clot Time (test code = 9905643765) 172 104-166 H Heparinase Clot Time (test c ode = 6552983454) 153 103-153 Clot Stiffness (test code = 4272406656) 8.4 hPa 13.0-33.2 L Fibrinogen Contribution to C lot Stiffness (test code = 2828325116) 1.2 hPa 1.0-3.7 Platelet Contribution to Julianna t Stiffness (test code = 1322719110) 7.2 hPa 11.9-29.8 L Clot Time Ratio (test code = 9161743978) 1.1 Ratio Lab Interpretation (test cod e = 09384-9) Abnormal [facility] VISCOELASTIC OOWORSV1518-77-74 21:36:47* Test Item Value Reference Range Interpretation Comme nts Clot Time (test code = 4634796706) 172 104-166 H Heparinase Clot Time (test c ode = 2228944913) 153 103-153 Clot Stiffness (test code = 2178660475) 8.4 hPa 13.0-33.2 L Fibrinogen Contribution to C lot Stiffness (test code = 9091474757) 1.2 hPa 1.0-3.7 Platelet Contribution to Julianna t Stiffness (test code = 8013752395) 7.2 hPa 11.9-29.8 L Clot Time Ratio (test code = 2290554277) 1.1 Ratio Lab Interpretation (test cod e = 35954-1) Abnormal [facility] Ytwgzwcx8489-23-34 21:32:55* Test Item Value Reference Range Interpretation Comme nts PH (test code = 2) 7.39 7.35-7.45 PCO2 (test code = 4399075869) 38 35-45 PO2 (test code = 1102935230) 236 80-100 H BE (test code = 9051022998) -2.0 -3.0-3.0 HCO3 (test code = 9081531423) 23 22-26 %O2HB (test code = 8853365913) 100.0 % 94.0-99.0 H NA (test code = 0706088259) 136 mmol/L 135-145 K+ (test code = 5907704470) 6.9 mmol/L 3.5-5.0 HH AC CA IONZ (test code = 8356334079) 4.30 mg/dL 4.50-5.30 L GLUCOSE (test code = 7326302080) 210 mg/dL 70-110 H AC Hematocrit (test code = 6359118994) 18 40-54 LL THB (test code = 2546720777) 6.1 g/dL 13.5-18.0 LL AC TC02 (test code = 6386428267) 24 mmol/L See_Comment [Automated messa ge] The system which generated this result transmitted reference range: 23-27 mmol/L. The reference range was not used to interpret this result as normal/abnormal. Lab Interpretation (test code = 34162-8) Abnormal [facility] Shtsvrjz7102-78-03 21:32:55* Test Item Value Reference Range Interpretation Comme nts PH (test code = 2) 7.39 7.35-7.45 PCO2 (test code = 7516649550) 38 35-45 PO2 (test code = 0773497642) 236 80-100 H BE (test code = 8157442317) -2.0 -3.0-3.0 HCO3 (test code = 3775630846) 23 22-26 %O2HB (test code = 3377365566) 100.0 % 94.0-99.0 H NA (test code = 1453686965) 136 mmol/L 135-145 K+ (test code = 7887182686) 6.9 mmol/L 3.5-5.0 HH AC CA IONZ (test code = 3053910461) 4.30 mg/dL 4.50-5.30 L GLUCOSE (test code = 4233224424) 210 mg/dL 70-110 H AC Hematocrit (test code = 7058022330) 18 40-54 LL THB (test code = 4931774093) 6.1 g/dL 13.5-18.0 LL AC TC02 (test code = 3622234887) 24 mmol/L See_Comment [Automated messa ge] The system which generated this result transmitted reference range: 23-27 mmol/L. The reference range was not used to interpret this result as normal/abnormal. Lab Interpretation (test code = 17460-1) Abnormal [facility] Emvhyvxo5792-40-94 21:32:45* Test Item Value Reference Range Interpretation Comme nts PH (test code = 2) 7.38 7.35-7.45 PCO2 (test code = 0942841268) 37 35-45 PO2 (test code = 8824486536) 264 80-100 H BE (test code = 6016795030) -3.0 -3.0-3.0 HCO3 (test code = 4172420803) 22 22-26 %O2HB (test code = 6820811885) 100.0 % 94.0-99.0 H NA (test code = 7882055075) 135 mmol/L 135-145 K+ (test code = 7174215355) 6.7 mmol/L 3.5-5.0 HH AC CA IONZ (test code = 1194827599) 4.40 mg/dL 4.50-5.30 L GLUCOSE (test code = 2855060933) 157 mg/dL 70-110 H AC Hematocrit (test code = 0758545276) 17 40-54 LL THB (test code = 4230928314) 5.8 g/dL 13.5-18.0 LL AC TC02 (test code = 0880496491) 23 mmol/L See_Comment [Automated [employer]] The system which generated this result transmitted reference range: 23-27 mmol/L. The reference range was not used to interpret this result as normal/abnormal. Lab Interpretation (test code = 60792-0) Abnormal [facility] Napsvdkx0603-02-36 21:32:45* Test Item Value Reference Range Interpretation Comme nts PH (test code = 2) 7.38 7.35-7.45 PCO2 (test code = 3319712785) 37 35-45 PO2 (test code = 1327311209) 264 80-100 H BE (test code = 8435798850) -3.0 -3.0-3.0 HCO3 (test code = 5011490085) 22 22-26 %O2HB (test code = 3191760959) 100.0 % 94.0-99.0 H NA (test code = 4944859945) 135 mmol/L 135-145 K+ (test code = 3818664412) 6.7 mmol/L 3.5-5.0 HH AC CA IONZ (test code = 1930429396) 4.40 mg/dL 4.50-5.30 L GLUCOSE (test code = 7276237551) 157 mg/dL 70-110 H AC Hematocrit (test code = 8227620648) 17 40-54 LL THB (test code = 2597164533) 5.8 g/dL 13.5-18.0 LL AC TC02 (test code = 9513270362) 23 mmol/L See_Comment [Automated messa ge] The system which generated this result transmitted reference range: 23-27 mmol/L. The reference range was not used to interpret this result as normal/abnormal. Lab Interpretation (test code = 00609-0) Abnormal [facility] Ejxxbnso1338-52-89 21:32:20* Test Item Value Reference Range Interpretation Comme nts PH (test code = 2) 7.38 7.35-7.45 PCO2 (test code = 7873437871) 37 35-45 PO2 (test code = 8934601895) 244 80-100 H BE (test code = 7331294009) -3.0 -3.0-3.0 HCO3 (test code = 2872845971) 22 22-26 %O2HB (test code = 7046745482) 100.0 % 94.0-99.0 H NA (test code = 8624226842) 135 mmol/L 135-145 K+ (test code = 8165029607) 6.5 mmol/L 3.5-5.0 HH AC CA IONZ (test code = 3013385664) 4.40 mg/dL 4.50-5.30 L GLUCOSE (test code = 4857562208) 166 mg/dL 70-110 H AC Hematocrit (test code = 4066403806) 18 40-54 LL THB (test code = 5752263143) 6.1 g/dL 13.5-18.0 LL AC TC02 (test code = 1513998316) 23 mmol/L See_Comment [Automated messa ge] The system which generated this result transmitted reference range: 23-27 mmol/L. The reference range was not used to interpret this result as normal/abnormal. Lab Interpretation (test code = 86056-2) Abnormal [facility] Ajkpjmqu3333-52-45 21:32:20* Test Item Value Reference Range Interpretation Comme nts PH (test code = 2) 7.38 7.35-7.45 PCO2 (test code = 2538146613) 37 35-45 PO2 (test code = 2875053678) 244 80-100 H BE (test code = 2796677407) -3.0 -3.0-3.0 HCO3 (test code = 0035793061) 22 22-26 %O2HB (test code = 4729317249) 100.0 % 94.0-99.0 H NA (test code = 6385762045) 135 mmol/L 135-145 K+ (test code = 2320384654) 6.5 mmol/L 3.5-5.0 HH AC CA IONZ (test code = 7946631204) 4.40 mg/dL 4.50-5.30 L GLUCOSE (test code = 6985117261) 166 mg/dL 70-110 H AC Hematocrit (test code = 1020350743) 18 40-54 LL THB (test code = 4089517902) 6.1 g/dL 13.5-18.0 LL AC TC02 (test code = 7853406421) 23 mmol/L See_Comment [Automated [employer]] The system which generated this result transmitted reference range: 23-27 mmol/L. The reference range was not used to interpret this result as normal/abnormal. Lab Interpretation (test code = 33291-1) Abnormal [facility] Elsnrnuo2712-74-50 21:32:09* Test Item Value Reference Range Interpretation Comme nts PH (test code = 2) 7.37 7.35-7.45 PCO2 (test code = 8712662659) 39 35-45 PO2 (test code = 2694308845) 250 80-100 H BE (test code = 5379299491) -3.0 -3.0-3.0 HCO3 (test code = 2065285804) 22 22-26 %O2HB (test code = 9354097880) 100.0 % 94.0-99.0 H NA (test code = 2124550744) 135 mmol/L 135-145 K+ (test code = 3160549338) 6.2 mmol/L 3.5-5.0 HH AC CA IONZ (test code = 0064372943) 4.20 mg/dL 4.50-5.30 L GLUCOSE (test code = 6301414430) 180 mg/dL 70-110 H AC Hematocrit (test code = 7043568755) 18 40-54 LL THB (test code = 1523271000) 6.1 g/dL 13.5-18.0 LL AC TC02 (test code = 5461747539) 23 mmol/L See_Comment [Automated messa ge] The system which generated this result transmitted reference range: 23-27 mmol/L. The reference range was not used to interpret this result as normal/abnormal. Lab Interpretation (test code = 20169-7) Abnormal [facility] Edrtwuat2020-16-31 21:32:09* Test Item Value Reference Range Interpretation Comme nts PH (test code = 2) 7.37 7.35-7.45 PCO2 (test code = 0035998035) 39 35-45 PO2 (test code = 2188292645) 250 80-100 H BE (test code = 2415120542) -3.0 -3.0-3.0 HCO3 (test code = 4496374923) 22 22-26 %O2HB (test code = 1575962541) 100.0 % 94.0-99.0 H NA (test code = 2530842628) 135 mmol/L 135-145 K+ (test code = 6590036843) 6.2 mmol/L 3.5-5.0 HH AC CA IONZ (test code = 4101895965) 4.20 mg/dL 4.50-5.30 L GLUCOSE (test code = 5961242231) 180 mg/dL 70-110 H AC Hematocrit (test code = 3694261121) 18 40-54 LL THB (test code = 7241679614) 6.1 g/dL 13.5-18.0 LL AC TC02 (test code = 0017706036) 23 mmol/L See_Comment [Automated messa ge] The system which generated this result transmitted reference range: 23-27 mmol/L. The reference range was not used to interpret this result as normal/abnormal. Lab Interpretation (test code = 47865-5) Abnormal [facility] Usbinwjl4706-13-95 21:31:49* Test Item Value Reference Range Interpretation Comme nts PH (test code = 2) 7.37 7.35-7.45 PCO2 (test code = 9623163361) 40 35-45 PO2 (test code = 5754762681) 265 80-100 H BE (test code = 2566034097) -2.0 -3.0-3.0 HCO3 (test code = 1938627648) 23 22-26 %O2HB (test code = 8097559689) 100.0 % 94.0-99.0 H NA (test code = 5480349781) 134 mmol/L 135-145 L K+ (test code = 3032481158) 6.5 mmol/L 3.5-5.0 HH AC CA IONZ (test code = 1382382915) 4.40 mg/dL 4.50-5.30 L GLUCOSE (test code = 1598209692) 203 mg/dL 70-110 H AC Hematocrit (test code = 6710935494) 20 40-54 LL THB (test code = 6186688437) 6.8 g/dL 13.5-18.0 LL AC TC02 (test code = 5872610868) 24 mmol/L See_Comment [Automated [employer]] The system which generated this result transmitted reference range: 23-27 mmol/L. The reference range was not used to interpret this result as normal/abnormal. Lab Interpretation (test code = 04830-4) Abnormal [facility] Nfxcngnh1951-72-83 21:31:49* Test Item Value Reference Range Interpretation Comme nts PH (test code = 2) 7.37 7.35-7.45 PCO2 (test code = 5951825408) 40 35-45 PO2 (test code = 5451894103) 265 80-100 H BE (test code = 6049916182) -2.0 -3.0-3.0 HCO3 (test code = 3207954235) 23 22-26 %O2HB (test code = 0975506627) 100.0 % 94.0-99.0 H NA (test code = 8748126983) 134 mmol/L 135-145 L K+ (test code = 9377894484) 6.5 mmol/L 3.5-5.0 HH AC CA IONZ (test code = 2306941826) 4.40 mg/dL 4.50-5.30 L GLUCOSE (test code = 4529486227) 203 mg/dL 70-110 H AC Hematocrit (test code = 1581653199) 20 40-54 LL THB (test code = 3942682078) 6.8 g/dL 13.5-18.0 LL AC TC02 (test code = 7219498283) 24 mmol/L See_Comment [Automated messa ge] The system which generated this result transmitted reference range: 23-27 mmol/L. The reference range was not used to interpret this result as normal/abnormal. Lab Interpretation (test code = 73112-4) Abnormal [facility] Jrybcrjk4132-65-08 21:31:33* Test Item Value Reference Range Interpretation Comme nts PH (test code = 2) 7.36 7.35-7.45 PCO2 (test code = 9682062807) 38 35-45 PO2 (test code = 6572927310) 257 80-100 H BE (test code = 8720003546) -4.0 -3.0-3.0 L HCO3 (test code = 2419278168) 22 22-26 %O2HB (test code = 1985035328) 100.0 % 94.0-99.0 H NA (test code = 2624293754) 132 mmol/L 135-145 L K+ (test code = 3080055934) 6.4 mmol/L 3.5-5.0 HH AC CA IONZ (test code = 7645562821) 4.40 mg/dL 4.50-5.30 L GLUCOSE (test code = 6924664305) 203 mg/dL 70-110 H AC Hematocrit (test code = 7919540225) 20 40-54 LL THB (test code = 8486305493) 6.8 g/dL 13.5-18.0 LL AC TC02 (test code = 5352311419) 23 mmol/L See_Comment [Automated messa ge] The system which generated this result transmitted reference range: 23-27 mmol/L. The reference range was not used to interpret this result as normal/abnormal. Lab Interpretation (test code = 67428-2) Abnormal [facility] Wufnykwr8609-33-60 21:31:33* Test Item Value Reference Range Interpretation Comme nts PH (test code = 2) 7.36 7.35-7.45 PCO2 (test code = 5759849151) 38 35-45 PO2 (test code = 8380364769) 257 80-100 H BE (test code = 2508713170) -4.0 -3.0-3.0 L HCO3 (test code = 4498650018) 22 22-26 %O2HB (test code = 7954662673) 100.0 % 94.0-99.0 H NA (test code = 8555982833) 132 mmol/L 135-145 L K+ (test code = 9343892624) 6.4 mmol/L 3.5-5.0 HH AC CA IONZ (test code = 0157713298) 4.40 mg/dL 4.50-5.30 L GLUCOSE (test code = 6913567584) 203 mg/dL 70-110 H AC Hematocrit (test code = 9158611391) 20 40-54 LL THB (test code = 9336550616) 6.8 g/dL 13.5-18.0 LL AC TC02 (test code = 2269310916) 23 mmol/L See_Comment [Automated [employer]] The system which generated this result transmitted reference range: 23-27 mmol/L. The reference range was not used to interpret this result as normal/abnormal. Lab Interpretation (test code = 18285-1) Abnormal [facility] Qoqyrlvj8309-99-66 21:31:08* Test Item Value Reference Range Interpretation Comme nts PH (test code = 2) 7.39 7.35-7.45 PCO2 (test code = 3438177738) 37 35-45 PO2 (test code = 2450876905) 283 80-100 H BE (test code = 1910674967) -3.0 -3.0-3.0 HCO3 (test code = 7952740153) 23 22-26 %O2HB (test code = 7849814391) 100.0 % 94.0-99.0 H NA (test code = 2196599667) 132 mmol/L 135-145 L K+ (test code = 4499247515) 5.8 mmol/L 3.5-5.0 H AC CA IONZ (test code = 1875173389) 4.30 mg/dL 4.50-5.30 L GLUCOSE (test code = 7238049905) 190 mg/dL 70-110 H AC Hematocrit (test code = 5063755259) 21 40-54 LL THB (test code = 5587122486) 7.1 g/dL 13.5-18.0 LL AC TC02 (test code = 0943696205) 24 mmol/L See_Comment [Automated messa ge] The system which generated this result transmitted reference range: 23-27 mmol/L. The reference range was not used to interpret this result as normal/abnormal. Lab Interpretation (test code = 43829-4) Abnormal [facility] Grssjrti8043-89-76 21:31:08* Test Item Value Reference Range Interpretation Comme nts PH (test code = 2) 7.39 7.35-7.45 PCO2 (test code = 5785581964) 37 35-45 PO2 (test code = 4712553470) 283 80-100 H BE (test code = 9257038512) -3.0 -3.0-3.0 HCO3 (test code = 6622046124) 23 22-26 %O2HB (test code = 7290380148) 100.0 % 94.0-99.0 H NA (test code = 9796492237) 132 mmol/L 135-145 L K+ (test code = 2137728258) 5.8 mmol/L 3.5-5.0 H AC CA IONZ (test code = 8237512574) 4.30 mg/dL 4.50-5.30 L GLUCOSE (test code = 7203705312) 190 mg/dL 70-110 H AC Hematocrit (test code = 1009847393) 21 40-54 LL THB (test code = 7908603977) 7.1 g/dL 13.5-18.0 LL AC TC02 (test code = 1138890368) 24 mmol/L See_Comment [Automated messa ge] The system which generated this result transmitted reference range: 23-27 mmol/L. The reference range was not used to interpret this result as normal/abnormal. Lab Interpretation (test code = 98511-3) Abnormal [facility] Banhxeao5703-93-79 21:30:57* Test Item Value Reference Range Interpretation Comme nts PH (test code = 2) 7.36 7.35-7.45 PCO2 (test code = 7236746512) 40 35-45 PO2 (test code = 5252857692) 282 80-100 H BE (test code = 0204022568) -2.0 -3.0-3.0 HCO3 (test code = 6920673402) 23 22-26 %O2HB (test code = 7478323411) 100.0 % 94.0-99.0 H NA (test code = 4418847710) 133 mmol/L 135-145 L K+ (test code = 7051654950) 5.2 mmol/L 3.5-5.0 H AC CA IONZ (test code = 7337152059) 4.30 mg/dL 4.50-5.30 L GLUCOSE (test code = 3029807669) 173 mg/dL 70-110 H AC Hematocrit (test code = 7913100711) 21 40-54 LL THB (test code = 8774194291) 7.1 g/dL 13.5-18.0 LL AC TC02 (test code = 6470445792) 24 mmol/L See_Comment [Automated messa ge] The system which generated this result transmitted reference range: 23-27 mmol/L. The reference range was not used to interpret this result as normal/abnormal. Lab Interpretation (test code = 23672-6) Abnormal [facility] Dtmnyecx9462-03-65 21:30:57* Test Item Value Reference Range Interpretation Comme nts PH (test code = 2) 7.36 7.35-7.45 PCO2 (test code = 8218104917) 40 35-45 PO2 (test code = 2719982798) 282 80-100 H BE (test code = 9516061692) -2.0 -3.0-3.0 HCO3 (test code = 4163632136) 23 22-26 %O2HB (test code = 8798882278) 100.0 % 94.0-99.0 H NA (test code = 4066614802) 133 mmol/L 135-145 L K+ (test code = 5616046665) 5.2 mmol/L 3.5-5.0 H AC CA IONZ (test code = 1460656199) 4.30 mg/dL 4.50-5.30 L GLUCOSE (test code = 3920232413) 173 mg/dL 70-110 H AC Hematocrit (test code = 4829996921) 21 40-54 LL THB (test code = 9378633583) 7.1 g/dL 13.5-18.0 LL AC TC02 (test code = 4589720488) 24 mmol/L See_Comment [Automated messa ge] The system which generated this result transmitted reference range: 23-27 mmol/L. The reference range was not used to interpret this result as normal/abnormal. Lab Interpretation (test code = 72979-7) Abnormal [facility] Jmdalnhm2384-29-44 21:30:36* Test Item Value Reference Range Interpretation Comme nts PH (test code = 2) 7.30 7.35-7.45 L PCO2 (test code = 8958159472) 47 35-45 H PO2 (test code = 2671156524) 464 80-100 H BE (test code = 6981839798) -3.0 -3.0-3.0 HCO3 (test code = 9602064955) 23 22-26 %O2HB (test code = 9795289140) 100.0 % 94.0-99.0 H NA (test code = 2913053995) 133 mmol/L 135-145 L K+ (test code = 6145344544) 4.8 mmol/L 3.5-5.0 AC CA IONZ (test code = 2457797304) 3.70 mg/dL 4.50-5.30 L GLUCOSE (test code = 7015837557) 155 mg/dL 70-110 H AC Hematocrit (test code = 3896290701) 20 40-54 LL THB (test code = 5925027149) 6.8 g/dL 13.5-18.0 LL AC TC02 (test code = 6753971350) 25 mmol/L See_Comment [Automated messa ge] The system which generated this result transmitted reference range: 23-27 mmol/L. The reference range was not used to interpret this result as normal/abnormal. Lab Interpretation (test code = 92958-2) Abnormal [facility] Smaukahh1978-80-38 21:30:36* Test Item Value Reference Range Interpretation Comme nts PH (test code = 2) 7.30 7.35-7.45 L PCO2 (test code = 2960025271) 47 35-45 H PO2 (test code = 5014342373) 464 80-100 H BE (test code = 8556695076) -3.0 -3.0-3.0 HCO3 (test code = 6832032037) 23 22-26 %O2HB (test code = 6962909369) 100.0 % 94.0-99.0 H NA (test code = 5318171018) 133 mmol/L 135-145 L K+ (test code = 7567689696) 4.8 mmol/L 3.5-5.0 AC CA IONZ (test code = 2847320523) 3.70 mg/dL 4.50-5.30 L GLUCOSE (test code = 6938572451) 155 mg/dL 70-110 H AC Hematocrit (test code = 8483263145) 20 40-54 LL THB (test code = 5876190204) 6.8 g/dL 13.5-18.0 LL AC TC02 (test code = 5497459327) 25 mmol/L See_Comment [Automated messa ge] The system which generated this result transmitted reference range: 23-27 mmol/L. The reference range was not used to interpret this result as normal/abnormal. Lab Interpretation (test code = 57024-8) Abnormal [facility] Sbuapjkh6522-18-75 20:58:11* Test Item Value Reference Range Interpretation Comme nts PH (test code = 2) 7.39 7.35-7.45 PCO2 (test code = 1520460485) 42 35-45 PO2 (test code = 7857597155) 472 80-100 H BE (test code = 9384866829) 0.0 -3.0-3.0 HCO3 (test code = 9226408168) 25 22-26 %O2HB (test code = 5060299315) 100.0 % 94.0-99.0 H NA (test code = 0516809933) 133 mmol/L 135-145 L K+ (test code = 2813138366) 4.1 mmol/L 3.5-5.0 AC CA IONZ (test code = 8944342993) 4.80 mg/dL 4.50-5.30 GLUCOSE (test code = 9647067881) 104 mg/dL 70-110 AC Hematocrit (test code = 9381984642) 29 40-54 L THB (test code = 5360096805) 9.9 g/dL 13.5-18.0 L AC TC02 (test code = 9962975561) 26 mmol/L See_Comment [Automated [employer]] The system which generated this result transmitted reference range: 23-27 mmol/L. The reference range was not used to interpret this result as normal/abnormal. Lab Interpretation (test code = 40592-2) Abnormal [facility] Xszfggcf3617-60-25 20:58:11* Test Item Value Reference Range Interpretation Comme nts PH (test code = 2) 7.39 7.35-7.45 PCO2 (test code = 9039411659) 42 35-45 PO2 (test code = 3247269787) 472 80-100 H BE (test code = 6058045380) 0.0 -3.0-3.0 HCO3 (test code = 3537233028) 25 22-26 %O2HB (test code = 4200153755) 100.0 % 94.0-99.0 H NA (test code = 7961458393) 133 mmol/L 135-145 L K+ (test code = 0903218269) 4.1 mmol/L 3.5-5.0 AC CA IONZ (test code = 1248336447) 4.80 mg/dL 4.50-5.30 GLUCOSE (test code = 2333087322) 104 mg/dL 70-110 AC Hematocrit (test code = 6573243542) 29 40-54 L THB (test code = 5500656075) 9.9 g/dL 13.5-18.0 L AC TC02 (test code = 1928482467) 26 mmol/L See_Comment [Automated messa ge] The system which generated this result transmitted reference range: 23-27 mmol/L. The reference range was not used to interpret this result as normal/abnormal. Lab Interpretation (test code = 96054-4) Abnormal [facility] Packed RBC (in units), 2 Units 2024-07-19 20:42:57* Test Item Value Reference Range Interpretation Comme nts Cross Match Result (test code = 4409) Compatible ISBT Blood Type Code (test code = 412443) 6200 Unit Blood Type (test code = 4410) A Pos Unit Number (test code = 4411) [id number] Blood Expiration Date & Time (test code = 730213) [id number] Status Information (test code = 4412) Issued Product Identification (test code = 4413) Red Blood Cells Product Code (test code = 4414) [id number] Performed at [facility] Blood [address] Free: [phone] No. [id number] [facility] 2 Units 2024-07-19 20:42:57* Test Item Value Reference Range Interpretation Comme nts Cross Match Result (test code = 4409) Compatible ISBT Blood Type Code (test code = 421284) 6200 Unit Blood Type (test code = 4410) A Pos Unit Number (test code = 4411) [id number] Blood Expiration Date & Time (test code = 120793) 663217903685 Status Information (test code = 4412) Issued Product Identification (test code = 4413) Red Blood Cells Product Code (test code = 4414) [id number] Performed at [facility] Blood [address] Free: [phone] No. [id number] [facility] [id number] 14:11:48* Test Item Value Reference Range Interpretation Comme nts Clot Time (test code = 8612714461) 150 104-166 Heparinase Clot Time (test c ode = 5243768372) 147 103-153 Clot Stiffness (test code = 2809325986) 19.7 hPa 13.0-33.2 Fibrinogen Contribution to C lot Stiffness (test code = 1747357138) 2.0 hPa 1.0-3.7 Platelet Contribution to Julianna t Stiffness (test code = 2940388091) 17.7 hPa 11.9-29.8 Clot Time Ratio (test code = 0793576186) 1.0 Ratio [facility] [id number] 14:11:48* Test Item Value Reference Range Interpretation Comme nts Clot Time (test code = 3466883627) 150 104-166 Heparinase Clot Time (test c ode = 9947705395) 147 103-153 Clot Stiffness (test code = 1219077036) 19.7 hPa 13.0-33.2 Fibrinogen Contribution to C lot Stiffness (test code = 2123359634) 2.0 hPa 1.0-3.7 Platelet Contribution to Julianna t Stiffness (test code = 7132806311) 17.7 hPa 11.9-29.8 Clot Time Ratio (test code = 9280411725) 1.0 Ratio [facility] Packed RBC (in units), 2 Units 2024-07-19 14:01:17* Test Item Value Reference Range Interpretation Comme nts Cross Match Result (test code = 4409) Compatible ISBT Blood Type Code (test code = 262451) 6200 Unit Blood Type (test code = 4410) A Pos Unit Number (test code = 4411) [id number] Blood Expiration Date & Time (test code = 447338) 750961705406 Status Information (test code = 4412) Issued Product Identification (test code = 4413) Red Blood Cells Product Code (test code = 4414) [id number] Performed at [facility] Laboratory [facility] Blood [address] [address]Hujn Free: [phone] No. [id number] [facility] Packed RBC (in units), 2 Units 2024-07-19 14:01:17* Test Item Value Reference Range Interpretation Comme nts Cross Match Result (test code = 4409) Compatible ISBT Blood Type Code (test code = 938883) 6200 Unit Blood Type (test code = 4410) A Pos Unit Number (test code = 4411) [id number] Blood Expiration Date & Time (test code = 523935) 571241539245 Status Information (test code = 4412) Issued Product Identification (test code = 4413) Red Blood Cells Product Code (test code = 4414) [id number] Performed at [facility] Laboratory Services [facility] Blood [address] [address] Free: [phone] No. [id number] [facility] CenterPHYSICIAN [id number] 20:59:45Ordered by an unspecified provider.[facility] CenterMagnesium2024-12-30 12:06:04* Test Item Value Reference Range Interpretation Comme nts MAGNESIUM (test code = 3100447827) 2.1 mg/dL 1.7-2.4 Lab Interpretation (test cod e = 34090-9) Normal [facility] Metabolic Panel (NA, K, CL, CO2, GLUCOSE, BUN, CREATININE, CA)2024-06-03 12:06:04* Test Item Value Reference Range Interpretation Comme nts NA (test code = 1571495927) 129 mmol/L 135-145 L K (test code = 7827629708) 4.8 mmol/L 3.5-5.0 CL (test code = 9487427558) 100 mmol/L 98-108 CO2 TOTAL (test code = 5804000100) 24 mmol/L 23-31 AGAP (test code = 3930759453) 5 2-16 BUN (test code = 0783840898) 41 mg/dL 7-23 H GLUCOSE (test code = 9420348631) 79 mg/dL 70-110 CREATININE (test code = 2160-0) 3.54 mg/dL 0.60-1.25 H CALCIUM (test code = 2110979911) 8.3 mg/dL 8.6-10.6 L eGFR (test code = 93017-2) 16.7 mL/min/1.73m2 CKD-EPI eGFR (2020). Assuming creatinine has been stable day-to-day for at least three months, the eGFR indicates Category G4 (15 - 29 mL/min/1.73 m2) Lab Interpretation (test code = 22486-3) Abnormal [facility] with [id number] 11:31:41* Test Item Value Reference Range Interpretation Comme nts WBC (test code = 6690-2) 6.38 4.20-10.70 RBC (test code = 789-8) 3.55 4.26-5.52 L HGB (test code = 718-7) 9.9 g/dL 12.2-16.4 L HCT (test code = 4544-3) 29.8 % 38.4-49.3 L MCV (test code = 787-2) 83.9 fL 81.7-95.6 MCH (test code = 785-6) 27.9 pg 26.1-32.7 MCHC (test code = 786-4) 33.2 g/dL 31.2-35.0 RDW-SD (test code = 31814-7) 44.2 fL 38.5-51.6 RDW-CV (test code = 788-0) 14.4 % 12.1-15.4 PLT (test code = 777-3) 200 150-328 MPV (test code = 46062-7) 9.3 fL 9.8-13.0 L NRBC/100 WBC (test code = 6292008589) 0.0 0.0-10.0 NRBC x10^3 (test code = 6825608145) See_Comment [Automated messa ge] The system which generated this result transmitted reference range: 10*3/?L. The reference range was not used to interpret this result as normal/abnormal. GRAN MAT (NEUT) % (test code = 770-8) 49.1 % IMM GRAN % (test code = 8613156960) 0.20 % LYMPH % (test code = 736-9) 23.0 % MONO % (test code = 5905-5) 9.1 % EOS % (test code = 713-8) 17.2 % BASO % (test code = 706-2) 1.4 % GRAN MAT x10^3(ANC) (test code = 1752421963) 3.13 10*3/uL 1.99-6.95 IMM GRAN x10^3 (test code = 6408366989) 0.00-0.06 LYMPH x10^3 (test code = 731-0) 1.47 10*3/uL 1.09-3.23 MONO x10^3 (test code = 742-7) 0.58 10*3/uL 0.36-1.02 EOS x10^3 (test code = 711-2) 1.10 10*3/uL 0.06-0.53 H BASO x10^3 (test code = 704-7) 0.09 10*3/uL 0.01-0.09 Lab Interpretation (test code = 87612-4) Abnormal [facility] Metabolic Panel (NA, K, CL, CO2, GLUCOSE, BUN, CREATININE, CA)2024-06-02 12:18:44* Test Item Value Reference Range Interpretation Comme nts NA (test code = 4014976966) 132 mmol/L 135-145 L K (test code = 7868194123) 5.0 mmol/L 3.5-5.0 Slight hemolysis CL (test code = 0124994408) 104 mmol/L 98-108 CO2 TOTAL (test code = 6691928231) 23 mmol/L 23-31 AGAP (test code = 9346824793) 5 2-16 BUN (test code = 4912297334) 31 mg/dL 7-23 H Slight hemolysis GLUCOSE (test code = 6150178270) 85 mg/dL 70-110 CREATININE (test code = 2160-0) 2.73 mg/dL 0.60-1.25 H CALCIUM (test code = 7329564009) 8.3 mg/dL 8.6-10.6 L eGFR (test code = 92614-1) 22.8 mL/min/1.73m2 CKD-EPI eGFR (2020). Assuming creatinine has been stable day-to-day for at least three months, the eGFR indicates Category G4 (15 - 29 mL/min/1.73 m2) Lab Interpretation (test code = 53482-5) Abnormal [facility]2024-12-29 12:18:44* Test Item Value Reference Range Interpretation Comme nts MAGNESIUM (test code = 2219573660) 2.0 mg/dL 1.7-2.4 Lab Interpretation (test cod e = 85372-5) Normal [facility] with [id number] 11:33:22* Test Item Value Reference Range Interpretation Comme nts WBC (test code = 6690-2) 6.55 4.20-10.70 RBC (test code = 789-8) 3.44 4.26-5.52 L HGB (test code = 718-7) 10.0 g/dL 12.2-16.4 L HCT (test code = 4544-3) 29.4 % 38.4-49.3 L MCV (test code = 787-2) 85.5 fL 81.7-95.6 MCH (test code = 785-6) 29.1 pg 26.1-32.7 MCHC (test code = 786-4) 34.0 g/dL 31.2-35.0 RDW-SD (test code = 96322-1) 45.3 fL 38.5-51.6 RDW-CV (test code = 788-0) 14.6 % 12.1-15.4 PLT (test code = 777-3) 188 150-328 MPV (test code = 00747-8) 9.9 fL 9.8-13.0 NRBC/100 WBC (test code = 6199011684) 0.0 0.0-10.0 NRBC x10^3 (test code = 9984377056) See_Comment [Automated messa ge] The system which generated this result transmitted reference range: 10*3/?L. The reference range was not used to interpret this result as normal/abnormal. GRAN MAT (NEUT) % (test code = 770-8) 45.9 % IMM GRAN % (test code = 8704816763) 0.50 % LYMPH % (test code = 736-9) 25.2 % MONO % (test code = 5905-5) 10.4 % EOS % (test code = 713-8) 16.9 % BASO % (test code = 706-2) 1.1 % GRAN MAT x10^3(ANC) (test code = 2355025892) 3.01 10*3/uL 1.99-6.95 IMM GRAN x10^3 (test code = 6732370736) 0.03 10*3/uL 0.00-0.06 LYMPH x10^3 (test code = 731-0) 1.65 10*3/uL 1.09-3.23 MONO x10^3 (test code = 742-7) 0.68 10*3/uL 0.36-1.02 EOS x10^3 (test code = 711-2) 1.11 10*3/uL 0.06-0.53 H BASO x10^3 (test code = 704-7) 0.07 10*3/uL 0.01-0.09 Lab Interpretation (test code = 45294-9) Abnormal [facility] Metabolic Panel (NA, K, CL, CO2, GLUCOSE, BUN, CREATININE, CA)2024-06-01 12:00:08* Test Item Value Reference Range Interpretation Comme nts NA (test code = 2074378418) 131 mmol/L 135-145 L K (test code = 9497162650) 4.5 mmol/L 3.5-5.0 CL (test code = 9836692335) 103 mmol/L 98-108 CO2 TOTAL (test code = 1307553391) 20 mmol/L 23-31 L AGAP (test code = 6436757194) 8 2-16 BUN (test code = 0575170556) 42 mg/dL 7-23 H GLUCOSE (test code = 7201330837) 85 mg/dL 70-110 CREATININE (test code = 2160-0) 3.32 mg/dL 0.60-1.25 H CALCIUM (test code = 9789449931) 8.4 mg/dL 8.6-10.6 L eGFR (test code = 12535-1) 18.0 mL/min/1.73m2 CKD-EPI eGFR (2020). Assuming creatinine has been stable day-to-day for at least three months, the eGFR indicates Category G4 (15 - 29 mL/min/1.73 m2) Lab Interpretation (test code = 37691-1) [facility]normal [facility] 12:00:08* Test Item Value Reference Range Interpretation Comme nts MAGNESIUM (test code = 9384703847) 2.1 mg/dL 1.7-2.4 Lab Interpretation (test cod e = 89882-1) Normal [facility] with [id number] 11:35:04* Test Item Value Reference Range Interpretation Comme nts WBC (test code = 6690-2) 6.96 4.20-10.70 RBC (test code = 789-8) 3.45 4.26-5.52 L HGB (test code = 718-7) 9.9 g/dL 12.2-16.4 L HCT (test code = 4544-3) 29.6 % 38.4-49.3 L MCV (test code = 787-2) 85.8 fL 81.7-95.6 MCH (test code = 785-6) 28.7 pg 26.1-32.7 MCHC (test code = 786-4) 33.4 g/dL 31.2-35.0 RDW-SD (test code = 56870-4) 46.0 fL 38.5-51.6 RDW-CV (test code = 788-0) 14.6 % 12.1-15.4 PLT (test code = 777-3) 204 150-328 MPV (test code = 04782-9) 10.3 fL 9.8-13.0 NRBC/100 WBC (test code = 8358493738) 0.0 0.0-10.0 NRBC x10^3 (test code = 3007601135) See_Comment [Automated messa ge] The system which generated this result transmitted reference range: 10*3/?L. The reference range was not used to interpret this result as normal/abnormal. GRAN MAT (NEUT) % (test code = 770-8) 53.1 % IMM GRAN % (test code = 7479532206) 0.30 % LYMPH % (test code = 736-9) 19.5 % MONO % (test code = 5905-5) 11.1 % EOS % (test code = 713-8) 14.7 % BASO % (test code = 706-2) 1.3 % GRAN MAT x10^3(ANC) (test code = 4037478658) 3.70 10*3/uL 1.99-6.95 IMM GRAN x10^3 (test code = 8648520411) 0.00-0.06 LYMPH x10^3 (test code = 731-0) 1.36 10*3/uL 1.09-3.23 MONO x10^3 (test code = 742-7) 0.77 10*3/uL 0.36-1.02 EOS x10^3 (test code = 711-2) 1.02 10*3/uL 0.06-0.53 H BASO x10^3 (test code = 704-7) 0.09 10*3/uL 0.01-0.09 Lab Interpretation (test code = 52227-3) [facility] (NA, K, CL, CO2, GLUCOSE, BUN, CREATININE, CA)2024-06-01 03:34:23* Test Item Value Reference Range Interpretation Comme nts NA (test code = 9144012092) 132 mmol/L 135-145 L K (test code = 9271466929) 4.5 mmol/L 3.5-5.0 CL (test code = 9158469745) 101 mmol/L 98-108 CO2 TOTAL (test code = 6553231149) 24 mmol/L 23-31 AGAP (test code = 3909934874) 7 2-16 BUN (test code = 0716132002) 43 mg/dL 7-23 H GLUCOSE (test code = 3157336085) 86 mg/dL 70-110 CREATININE (test code = 2160-0) 3.12 mg/dL 0.60-1.25 H CALCIUM (test code = 1012029918) 8.2 mg/dL 8.6-10.6 L eGFR (test code = 27651-3) 19.4 mL/min/1.73m2 CKD-EPI eGFR (2020). Assuming creatinine has been stable day-to-day for at least three months, the eGFR indicates Category G4 (15 - 29 mL/min/1.73 m2) Lab Interpretation (test code = 63435-1) [facility] [id number] 21:40:53 PROCEDURE: CT CHEST WITHOUT CONTRAST - CHEST PROTOCOL CLINICAL INDICATION: Aortic aneurysm, known or suspected ? Comparison: ?Chest x-ray 2 views 05/28/2024 TECHNIQUE: Volumetric images of the chest were acquired (from lung apicesto bases).Images were reconstructed at 2.5 mm slice thickness. MIP axi alimages, coronal and sagittal reformats were also submitted forinterpretation. FINDINGS: Devices: Right IJ central line with tip terminating in the right atrium. LUNGS AND PLEURA: The lungs are well-expanded. Bronchial wall thickening ofunknown chronicity. Mild bibasilar atelectasis and redemonstration ofbasilar bronchial wall thickening and peripheral mucous plugging andscattered micronodules may be secondary to prior aspiration. No focalopacities are identified. No suspicious nodules. No pleural abnormalitydetected. LYMPH NODES: Scattered small lymph nodes in both sides of the mediastinumand hilar regions. No evidence of intrathoracic lymphadenopathy. MEDIASTINUM AND LOWER NECK: No central airway lesions are detected. Theesophagus is within normal limits. 1.4 cm hypodense right thyroidnodule. HEART AND GREAT VESSELS: The heart is globally enlarged. No pericardialabnormalities are identified. There is aneurysmal dilatation of the aortawhich following measurements:Aortic root: 4.4 cm .Ascending aorta at the level of pulmonary artery: 4.8 cmAortic arch (proximal to the left subclavian artery: 3.5 cmProximal descending aorta, 2 cm distal to subclavian artery: 3.9 cmMid descending thoracic aorta: 3.1 cmDistal descending thoracic aorta just above the hiatus: 3.1 cm There are moderate aortic valve calcifications present. There are mild tomoderate atherosclerotic plaques in thoracic aorta. Moderateatherosclerotic calcifications of the coronary vessels. The pulmonary trunkis dilated measuring 3.5 cm VISUALIZED UPPER ABDOMEN: The liver is diffusely hyperenhancing which maybe secondary to hemochromatosis or medications. OSSEOUS STRUCTURES AND SOFT TISSUES: Spondylosis with facet arthropathy andbridging osteophytes throughout the thoracic spine. There is thickening ofthe right upper chest wall skin and subcutaneous fat stranding. [facility]hor[facility] ([facility] [id number] 18:51:50* Test Item Value Reference Range Interpretation Comme nts Height (test code = 7309378013) 74 in Weight (test code = 1659245245) 199 lbs Systolic BP (test code = 9442344067) 119 mmHg Diastolic BP (test code = 6807279161) 56 mmHg Heart Rate (test code = 8084994802) 76 bpm LV GLS Endo Peak A2C () (test code = 2607437346) -11.80 % LV GLS Endo Peak A3C () (test code = 3841458860) -10.70 % LV GLS Endo Peak A4C () (test code = 7044779094) -12.20 % LV GLS Endo Peak Avg () (test code = 1414423533) -11.60 % BSA (test code = 9867862335) 2.17 m2 LVOT diameter (test code = 4284927505) 2.25 cm LVOT area (test code = 0535602394) 4.00 cm2 LVIDD (test code = 6329121470) 5.60 cm Left Ventricular End Diastolic Volume by Teichholz Method (test code = 6481719) 152.8 mL IVS (test code = 8400268769) 1.00 cm Interventricular Septum Diastolic Thickness by 2D (test code = 7431367) 1.00 cm LVPWD (test code = 5496502423) 1.23 cm PW (test code = 2640559605) 1.23 cm 0.6-1.1 EF(Teich) (test code = 0259978470) 63.80 % LVIDS (test code = 3132325296) 3.60 cm Left Ventricular End Systolic Volume by Teichholz Method (test code = 4995859) 55.3 mL FS (test code = 2468159429) 35 % EF - 2D (test code = 63538217) 63.80 % Ao root diam (test code = 3129318105) 3.70 cm Aortic root (test code = 7749205280) 3.7 cm Ao root annulus (test code = 0793507006) 3.7 cm LA size (test code = 8633938773) 4.6 cm ACS (test code = 6212456926) 0.97 cm Aortic valve mean velocity (test code = 3203050475) 250.3 cm/s Ao peak jose miguel (test code = 2710091037) 362.5 cm/s Ao VTI (test code = 1916286868) 82.0 cm Ao max PG (test code = 2969068837) 52.60 mm[Hg] AV peak gradient (test code = 9478421002) 52.6 mmHg AV mean gradient (test code = 0627093548) 28.3 mmHg LVOT stroke volume (test code = 5121403978) 98.00 cm3 LVOT peak jose miguel (test code = 2971270384) 100.9 cm/s LVOT mn grad (test code = 3757977642) 2.4 mmHg AV LVOT peak gradient (test code = 9910197081) 4.1 mmHg LVOT peak VTI (test code = 9329970706) 24.5 cm AV area by cont VTI (test code = 6443033124) 1.2 cm2 AV area peak jose miguel (test code = 9443404861) 1.1 cm2 LV V1 mean (test code = 0284433884) 72.60 cm/s AV valve area (test code = 7646616646) 1.20 cm2 A4C EF (test code = 8389049434) 36.80 % EF(sp4-el) (test code = 6152670420) 35.80 % SV(MOD-sp4) (test code = 3868698234) 100.90 mL SV(sp4-el) (test code = 5376429809) 100.70 mL LV Diastolic Volume (BP) (test code = 0272255394) 276.7 mL A2C EF (test code = 5222647125) 31.50 % EF(MOD-bp) (test code = 5216791610) 34.20 % EF(sp2-el) (test code = 9372091411) 33.80 % LV Systolic Volume (BP) (test code = 7145089624) 182.0 mL SV(MOD-bp) (test code = 6695742743) 94.70 mL SV(MOD-sp2) (test code = 9102927343) 85.90 mL EF (test code = 5963072613) 34 Left Ventricular Stroke Volume by 2-D Biplane-MOD (test code = 8090405) 94.7 mL LAV(MOD-sp4) (test code = 3904007405) 138.60 mL GLS (test code = 6775331003) -12 % LV Diastolic Volume Index (BP) (test code = 0365520418) 127.5 mL/m2 LV Systolic Volume Index (BP) (test code = 7736182345) 83.9 mL/m2 Radiology Study observation (narrative) (test code = 42179-5) ANITA (test code = ANITA) ?Left?Ventricle: Left ventricle is severely dilated. Dilated by LV volume index calculation. ?Mildly increased wall thickness. Ventricular mass is normal. There is mild concentric remodeling. LVIDD is 5.60 cm. Global hypokinesis present. Estimated EF is 30 - 35%. EF by 2D Graham biplane is 34%. Global longitudinal strain is -12%. Unable to assess diastolic function due to inadequateTissue Doppler data. There are prominent trabeculations. ?Right?Ventricle: Right ventricle is dilated. Normal systolic function. Echocardiographic features suggestive of prominent trabeculation. ?Aortic?Valve: Severely calcified cusps with nodular calcification on right coronary cusp. Severe annular calcification. At least moderate transvalvular regurgitation with a centrally directed jet. Consistent with normal flow low gradient severe aortic stenosis. AV mean gradient is 28.3 mmHg. AV peak velocity is 362.5 cm/s. AV area by continuity VTI is 1.2 cm2.(Index 0.55 cm2/m2) ?Left?Atrium: Left atrium is grossly dilated. No apical 2 chamber view. ?Mitral?Valve: Moderate mitral annular calcification. Left VentricleLeft ventricle is severely dilated. Dilated by LV volume index calculation. Mildly increased wall thickness. Ventricular mass is normal. There is mild concentric remodeling. LVIDD is 5.60 cm. Global hypokinesis present. Estimated EF is 30 - 35%. EF by 2D Graham biplane is 34%. Global longitudinal strain is -12%. Unable to assess diastolic function due to inadequateTissue Doppler data. There are prominent trabeculations.Right VentricleRight ventricle is dilated. Normal systolic function. Echocardiographic features suggestive of prominent trabeculation.Left AtriumLeft atrium is grossly dilated. No apical 2 chamber view.Right AtriumRight atrium is dilated.IVC/SVCIVC was not well visualized.Mitral ValveModerate mitral annular calcification.Tricuspid ValveNot well visualized.Aortic ValveSeverely calcified cusps with nodular calcification on right coronary cusp. Severe annular calcification. At least moderate transvalvular regurgitation with a centrally directed jet. Consistent with normal flow low gradient severe aortic stenosis. AV mean gradient is 28.3 mmHg. AV peak velocity is 362.5 cm/s. AV area by continuity VTI is 1.2 cm2.(Index 0.55 cm2/m2)Pulmonic ValveNot well visualized.Ascending AortaNormal sized annulus and sinus of Valsalva.PericardiumNo pericardial effusion.Study DetailsA limited echocardiogram was performed using 2D, color flow Doppler, spectral Doppler and strain. 5 mL of Lumason ultrasound enhancing agent used. Patient exhibited sinus rhythm. [facility] [id number] 18:51:50* Test Item Value Reference Range Interpretation Comme nts Height (test code = 3206874904) 74 in Weight (test code = 4350208078) 199 lbs Systolic BP (test code = 3736187943) 119 mmHg Diastolic BP (test code = 4783350942) 56 mmHg Heart Rate (test code = 9467431444) 76 bpm LV GLS Endo Peak A2C () (test code = 9579801308) -11.80 % LV GLS Endo Peak A3C () (test code = 2281313104) -10.70 % LV GLS Endo Peak A4C () (test code = 7957562966) -12.20 % LV GLS Endo Peak Avg () (test code = 1597714439) -11.60 % BSA (test code = 7621611433) 2.17 m2 LVOT diameter (test code = 8091131162) 2.25 cm LVOT area (test code = 0673903973) 4.00 cm2 LVIDD (test code = 3917744769) 5.60 cm Left Ventricular End Diastolic Volume by Teichholz Method (test code = 1839096) 152.8 mL IVS (test code = 2783415895) 1.00 cm Interventricular Septum Diastolic Thickness by 2D (test code = 4095845) 1.00 cm LVPWD (test code = 0870253129) 1.23 cm PW (test code = 6151233948) 1.23 cm 0.6-1.1 EF(Teich) (test code = 5781226801) 63.80 % LVIDS (test code = 9037865422) 3.60 cm Left Ventricular End Systolic Volume by Teichholz Method (test code = 0276894) 55.3 mL FS (test code = 5959430914) 35 % EF - 2D (test code = 96792436) 63.80 % Ao root diam (test code = 6250721947) 3.70 cm Aortic root (test code = 4655185070) 3.7 cm Ao root annulus (test code = 6322856830) 3.7 cm LA size (test code = 6890813220) 4.6 cm ACS (test code = 3528267102) 0.97 cm Aortic valve mean velocity (test code = 9792970508) 250.3 cm/s Ao peak jose miguel (test code = 2426413421) 362.5 cm/s Ao VTI (test code = 6151111250) 82.0 cm Ao max PG (test code = 9706443996) 52.60 mm[Hg] AV peak gradient (test code = 5800935061) 52.6 mmHg AV mean gradient (test code = 5549603753) 28.3 mmHg LVOT stroke volume (test code = 5859369048) 98.00 cm3 LVOT peak jose miguel (test code = 0583339351) 100.9 cm/s LVOT mn grad (test code = 4382973580) 2.4 mmHg AV LVOT peak gradient (test code = 5872521474) 4.1 mmHg LVOT peak VTI (test code = 4833631040) 24.5 cm AV area by cont VTI (test code = 6233029489) 1.2 cm2 AV area peak jose miguel (test code = 9640286274) 1.1 cm2 LV V1 mean (test code = 5232660168) 72.60 cm/s AV valve area (test code = 7110219854) 1.20 cm2 A4C EF (test code = 9829975037) 36.80 % EF(sp4-el) (test code = 4012755058) 35.80 % SV(MOD-sp4) (test code = 2987708613) 100.90 mL SV(sp4-el) (test code = 2674539463) 100.70 mL LV Diastolic Volume (BP) (test code = 6215684364) 276.7 mL A2C EF (test code = 0826887860) 31.50 % EF(MOD-bp) (test code = 1165599338) 34.20 % EF(sp2-el) (test code = 2185688642) 33.80 % LV Systolic Volume (BP) (test code = 0651466858) 182.0 mL SV(MOD-bp) (test code = 5634576433) 94.70 mL SV(MOD-sp2) (test code = 8606639094) 85.90 mL EF (test code = 6756201513) 34 Left Ventricular Stroke Volume by 2-D Biplane-MOD (test code = 0060402) 94.7 mL LAV(MOD-sp4) (test code = 9434805508) 138.60 mL GLS (test code = 1838207967) -12 % LV Diastolic Volume Index (BP) (test code = 4432094512) 127.5 mL/m2 LV Systolic Volume Index (BP) (test code = 8304293536) 83.9 mL/m2 Radiology Study observation (narrative) (test code = 55411-7) ANITA (test code = ANITA) ?Left?Ventricle: Left ventricle is severely dilated. Dilated by LV volume index calculation. ?Mildly increased wall thickness. Ventricular mass is normal. There is mild concentric remodeling. LVIDD is 5.60 cm. Global hypokinesis present. Estimated EF is 30 - 35%. EF by 2D Graham biplane is 34%. Global longitudinal strain is -12%. Unable to assess diastolic function due to inadequateTissue Doppler data. There are prominent trabeculations. ?Right?Ventricle: Right ventricle is dilated. Normal systolic function. Echocardiographic features suggestive of prominent trabeculation. ?Aortic?Valve: Severely calcified cusps with nodular calcification on right coronary cusp. Severe annular calcification. At least moderate transvalvular regurgitation with a centrally directed jet. Consistent with normal flow low gradient severe aortic stenosis. AV mean gradient is 28.3 mmHg. AV peak velocity is 362.5 cm/s. AV area by continuity VTI is 1.2 cm2.(Index 0.55 cm2/m2) ?Left?Atrium: Left atrium is grossly dilated. No apical 2 chamber view. ?Mitral?Valve: Moderate mitral annular calcification. Left VentricleLeft ventricle is severely dilated. Dilated by LV volume index calculation. Mildly increased wall thickness. Ventricular mass is normal. There is mild concentric remodeling. LVIDD is 5.60 cm. Global hypokinesis present. Estimated EF is 30 - 35%. EF by 2D Graham biplane is 34%. Global longitudinal strain is -12%. Unable to assess diastolic function due to inadequateTissue Doppler data. There are prominent trabeculations.Right VentricleRight ventricle is dilated. Normal systolic function. Echocardiographic features suggestive of prominent trabeculation.Left AtriumLeft atrium is grossly dilated. No apical 2 chamber view.Right AtriumRight atrium is dilated.IVC/SVCIVC was not well visualized.Mitral ValveModerate mitral annular calcification.Tricuspid ValveNot well visualized.Aortic ValveSeverely calcified cusps with nodular calcification on right coronary cusp. Severe annular calcification. At least moderate transvalvular regurgitation with a centrally directed jet. Consistent with normal flow low gradient severe aortic stenosis. AV mean gradient is 28.3 mmHg. AV peak velocity is 362.5 cm/s. AV area by continuity VTI is 1.2 cm2.(Index 0.55 cm2/m2)Pulmonic ValveNot well visualized.Ascending AortaNormal sized annulus and sinus of Valsalva.PericardiumNo pericardial effusion.Study DetailsA limited echocardiogram was performed using 2D, color flow Doppler, spectral Doppler and strain. 5 mL of Lumason ultrasound enhancing agent used. Patient exhibited sinus rhythm. [facility]2024-12-27 12:18:06* Test Item Value Reference Range Interpretation Comme nts MAGNESIUM (test code = 1924908353) 2.1 mg/dL 1.7-2.4 Lab Interpretation (test cod e = 04526-5) Normal [facility] Metabolic Panel (NA, K, CL, CO2, GLUCOSE, BUN, CREATININE, CA)2024-05-31 12:18:06* Test Item Value Reference Range Interpretation Comme nts NA (test code = 7797621389) 132 mmol/L 135-145 L K (test code = 5088353896) 5.3 mmol/L 3.5-5.0 H Slight hemolysis CL (test code = 7520764538) 103 mmol/L 98-108 CO2 TOTAL (test code = 5500627327) 23 mmol/L 23-31 AGAP (test code = 6829083615) 6 2-16 BUN (test code = 2785763921) 32 mg/dL 7-23 H Slight hemolysis GLUCOSE (test code = 7039426874) 83 mg/dL 70-110 CREATININE (test code = 2160-0) 2.85 mg/dL 0.60-1.25 H CALCIUM (test code = 1773498745) 8.2 mg/dL 8.6-10.6 L eGFR (test code = 29806-6) 21.7 mL/min/1.73m2 CKD-EPI eGFR (2020). Assuming creatinine has been stable day-to-day for at least three months, the eGFR indicates Category G4 (15 - 29 mL/min/1.73 m2) Lab Interpretation (test code = 18724-5) Abnormal [facility]2024-12-27 12:18:06* Test Item Value Reference Range Interpretation Comme nts MAGNESIUM (test code = 1891990233) 2.1 mg/dL 1.7-2.4 Lab Interpretation (test cod e = 67260-0) Normal [facility] Metabolic Panel (NA, K, CL, CO2, GLUCOSE, BUN, CREATININE, CA)2024-05-31 12:18:06* Test Item Value Reference Range Interpretation Comme nts NA (test code = 0326853118) 132 mmol/L 135-145 L K (test code = 4830195564) 5.3 mmol/L 3.5-5.0 H Slight hemolysis CL (test code = 5251609179) 103 mmol/L 98-108 CO2 TOTAL (test code = 4970539011) 23 mmol/L 23-31 AGAP (test code = 8459659965) 6 2-16 BUN (test code = 1548163628) 32 mg/dL 7-23 H Slight hemolysis GLUCOSE (test code = 8484590384) 83 mg/dL 70-110 CREATININE (test code = 2160-0) 2.85 mg/dL 0.60-1.25 H CALCIUM (test code = 3283746590) 8.2 mg/dL 8.6-10.6 L eGFR (test code = 24167-4) 21.7 mL/min/1.73m2 CKD-EPI eGFR (2020). Assuming creatinine has been stable day-to-day for at least three months, the eGFR indicates Category G4 (15 - 29 mL/min/1.73 m2) Lab Interpretation (test code = 56071-0) Abnormal [facility] with Eeee8522-98-29 11:56:25* Test Item Value Reference Range Interpretation Comme nts WBC (test code = 6690-2) 6.63 4.20-10.70 RBC (test code = 789-8) 2.99 4.26-5.52 L HGB (test code = 718-7) 8.6 g/dL 12.2-16.4 L HCT (test code = 4544-3) 26.4 % 38.4-49.3 L MCV (test code = 787-2) 88.3 fL 81.7-95.6 MCH (test code = 785-6) 28.8 pg 26.1-32.7 MCHC (test code = 786-4) 32.6 g/dL 31.2-35.0 RDW-SD (test code = 58235-8) 46.6 fL 38.5-51.6 RDW-CV (test code = 788-0) 14.8 % 12.1-15.4 PLT (test code = 777-3) 174 150-328 MPV (test code = 18435-0) 10.8 fL 9.8-13.0 NRBC/100 WBC (test code = 3361569977) 0.0 0.0-10.0 NRBC x10^3 (test code = 8928076892) See_Comment [Automated messa ge] The system which generated this result transmitted reference range: 10*3/?L. The reference range was not used to interpret this result as normal/abnormal. GRAN MAT (NEUT) % (test code = 770-8) 64.1 % IMM GRAN % (test code = 1711421790) 0.30 % LYMPH % (test code = 736-9) 13.4 % MONO % (test code = 5905-5) 10.1 % EOS % (test code = 713-8) 11.2 % BASO % (test code = 706-2) 0.9 % GRAN MAT x10^3(ANC) (test code = 6054888257) 4.25 10*3/uL 1.99-6.95 IMM GRAN x10^3 (test code = 9276230105) 0.00-0.06 LYMPH x10^3 (test code = 731-0) 0.89 10*3/uL 1.09-3.23 L MONO x10^3 (test code = 742-7) 0.67 10*3/uL 0.36-1.02 EOS x10^3 (test code = 711-2) 0.74 10*3/uL 0.06-0.53 H BASO x10^3 (test code = 704-7) 0.06 10*3/uL 0.01-0.09 Lab Interpretation (test code = 52161-2) Abnormal [facility] with Rebs0837-20-85 11:56:25* Test Item Value Reference Range Interpretation Comme nts WBC (test code = 6690-2) 6.63 4.20-10.70 RBC (test code = 789-8) 2.99 4.26-5.52 L HGB (test code = 718-7) 8.6 g/dL 12.2-16.4 L HCT (test code = 4544-3) 26.4 % 38.4-49.3 L MCV (test code = 787-2) 88.3 fL 81.7-95.6 MCH (test code = 785-6) 28.8 pg 26.1-32.7 MCHC (test code = 786-4) 32.6 g/dL 31.2-35.0 RDW-SD (test code = 83867-9) 46.6 fL 38.5-51.6 RDW-CV (test code = 788-0) 14.8 % 12.1-15.4 PLT (test code = 777-3) 174 150-328 MPV (test code = 81395-4) 10.8 fL 9.8-13.0 NRBC/100 WBC (test code = 3981344341) 0.0 0.0-10.0 NRBC x10^3 (test code = 3326949942) See_Comment [Automated messa ge] The system which generated this result transmitted reference range: 10*3/?L. The reference range was not used to interpret this result as normal/abnormal. GRAN MAT (NEUT) % (test code = 770-8) 64.1 % IMM GRAN % (test code = 2683107200) 0.30 % LYMPH % (test code = 736-9) 13.4 % MONO % (test code = 5905-5) 10.1 % EOS % (test code = 713-8) 11.2 % BASO % (test code = 706-2) 0.9 % GRAN MAT x10^3(ANC) (test code = 2758946906) 4.25 10*3/uL 1.99-6.95 IMM GRAN x10^3 (test code = 8797615370) 0.00-0.06 LYMPH x10^3 (test code = 731-0) 0.89 10*3/uL 1.09-3.23 L MONO x10^3 (test code = 742-7) 0.67 10*3/uL 0.36-1.02 EOS x10^3 (test code = 711-2) 0.74 10*3/uL 0.06-0.53 H BASO x10^3 (test code = 704-7) 0.06 10*3/uL 0.01-0.09 Lab Interpretation (test code = 19026-0) [facility] Rcpbjwpsekklsym5139-23-58 21:21:51Right/Left Heart Cath/Coronary AngiographyMayank Gio Guerline2:04 PMAttending faculty: Myron Anderson MDFellow: Dr Valenzuela Physician: Dr Manning Performed:[facility] Coronary angiogram /L SCA and SANCHES angiogram for CABG eval Indication/Diagnosis: valvular [age]sltupt86 yo 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 ECHO 04/28/24; LVEF 35-40%, moderate to severe AR/. Consent: Risks, benefits, alternatives and complications of the procedure discussed with the self, who understood and agreed to proceed.Aseptic technique: ChlorprepLocal Anesthesia: 1% lidocaine without epinephrineSedation: ModerateAccess site: Arterial: Right femoral artery 6frVenous: Right femoral vein 7fRClosure Method: Arterial: RCFA percloseVenous: Manual CompressionSterile dressing: yesComplications: noneProcedures: After patient identification/verification, the patient was thereafter transferred to the collaborating supervising physician table. ?Theaccess site was prepped and draped in usual sterile fashion. After administering sedation, time outwas done. Under ultrasound guidance, using Seldinger technique, the Right femoral artery was accessed and a 6 Fr sheath was introduced into the artery.Under ultrasound guidance, the Right femoral vein was accessed and a 7 Fr Fr sheath was introducedA 7 Fr [place] Dianelys catheter was used to obtain RA/RV/PA and PCWP and for CO measurement. A 6Fr JL6 catheter was used to cannulate the LM. Selective coronary angiography was done using several views. A 6Fr JR4 was used to cross the AV with the J wire and the catheter was advanced into the LV where selective LVEDP 10 was measured. The 6Fr JR4 then 4Fr Al1 and then 4Fr Al2 and then 5Fr 3DRC catheter was then used to cannulate the RCA and selective coronary angiography was done using multiple views. Then 5Fr JR4 to L SCA for L SCA and SANCHES angiogram for CABg evaluation. Perclose r OBSTETRIC ASSISTANT, R CFV manual compression. The attending physician was present throughout the procedure and provided the highest level of supervision. Findings:Coronary dominance: rightLeft main: moderate calcification mild LILAD: large vessel pLAD/D1 bifurcation severe stenosis 70% LAD/70% D1, m-d LAD mild ?LILCX: large mild LI, OM1-2-3 mild LIRCA: dominant vessel, mild LI, RPDA mild LI, RPLB1-2-3-4 small mild LILVEDP: 10 mmHg L SCa patent, SANCHES patent RHC:RA mean 1 mmHgRV 28/1 mmHgPA 30/7 mmHg (mean PA 17 mmHg)PCWP mean 15 mmHgCO 8.02 L/min (Lizet's method)CI 3.65 L/min/m2(Lizet's method)CO 7.45 L/min (Thermodilution technique)CI 3.39 L/min/m2 (Thermodilution technique) Sats on room airPA sat: 73%RA sat: 67% Post-Procedure Sedation AddendumImmediately prior to start ofsedation, the patient was evaluated and there was no change from the pre-procedure evaluation. I was present and directed medical care.The patient underwent moderate sedation ?for the procedure. The medications administered were recorded in the MAR; oxygenation, ventilation and circulation were monitored continuously and were recorded in the EMR. I evaluated the patient after the procedure.The patient was evaluated immediately as recovering from sedation. Complications: none Impression/plan:1-mild elevated pulmonary pressures. Normal resting CO. Normal LVEDP. Severe pLAD/D1 bifurcation stenosis, recommend CTS eval for AVR/CABG. D/w pt in detail, all questions answered. Myron Anderson MD 05/30/2024 2:04 PM Procedure DetailsRight/Left Heart Cath/Coronary AngiographyMayank Hurley2:04 PMAttending faculty: Myron Anderson MDFellow: Dr Valenzuela Physician: Dr Manning Performed:[facility] Coronary angiogram /L SCA and SANCHES angiogram for CABG eval Indication/Diagnosis: valvular [age]qiitgx39 yo male with ESRD on HD, anemia, HTN, admitted to [facility] 05/28/24 for syncope/SOB, diagn osed with /AR and Asc aortic aneurysm. ECHO 04/28/24; LVEF 35-40%, moderate to severe AR/. Consent: Risks, benefits, alternatives and complications of the procedure discussed with the self, who understood and agreed to proceed.Aseptic technique: ChlorprepLocal Anesthesia: 1% lidocaine without epinephrineSedation: ModerateAccess site: Arterial: Right femoral artery 6frVenous: Right femoral vein 7fRClosure Method: Arterial: R OBSTETRIC ASSISTANT percloseVenous: Manual CompressionSterile dressing: yesComplications: noneProcedures: After patient identification/verification, the patient was thereafter transferred to the collaborating supervising physician table. The access site was prepped and draped in usual sterile fashion. After administering sedation, time out was done. Under ultrasound guidance, using Seldinger technique, the Right femoral artery was accessed and a 6 Fr sheath was introduced into the artery.Under ultrasound guidance, the Right femoral vein was accessed and a 7 Fr Fr sheath was introducedA 7 Fr [place] Dianelys catheter was used to obtain RA/RV/PA and PCWP and for CO measurement. A 6Fr JL6 catheter was used to cannulate the LM. Selective coronary angiography was done using several views. A 6Fr JR4 was used to cross the AV with the J wire and the catheter was advanced into the LV where selective LVEDP 10 was measured. The 6Fr JR4 then 4Fr Al1 and then 4Fr Al2 and then 5Fr 3DRC catheter was then used to cannulate the RCA and selective coronary angiography was done using multiple views. Then 5Fr JR4 to L SCA for L SCA and SANCHES angiogram for CABg evaluation. Perclose r OBSTETRIC ASSISTANT, R CFV manual compression. The attending physician was present throughout the procedure and provided the highest level of supervision. Findings:Coronary dominance: rightLeft main: moderate calcification mild LILAD: large vessel pLAD/D1 bifurcation severe stenosis 70% LAD/70% D1, m-d LAD mild LILCX: large mild LI, OM1-2-3 mild LIRCA: dominant vessel, mild LI, RPDA mild LI, RPLB1-2-3-4 small mild LILVEDP: 10 mmHg L SCa patent, LIMApatent RHC:RA mean 1 mmHgRV 28/1 mmHgPA 30/7 mmHg (mean PA 17 mmHg)PCWP mean 15 mmHgCO 8.02 L/min (Lizet's method)CI 3.65 L/min/m2 (Lizet's method)CO 7.45 L/min (Thermodilution technique)CI 3.39 L/min/m2 (Thermodilution technique) Sats on room airPA sat: 73%RA sat: 67% Post-Procedure Sedation AddendumImmediately prior to start of sedation, the patient was evaluated and there was no change from the pre- procedure evaluation. I was present and directed medical care.The patient underwent moderate sedation for the procedure. The medications administered were recorded in the MAR; oxygenation, ventilation and circulation were monitored continuously and were recorded in the EMR. I evaluated the patient after the procedure.The patient was evaluated immediately as recovering from sedation. Complications: none Impression/plan:1-mild elevated pulmonary pressures. Normal resting CO. Normal LVEDP. Severe pLAD/D1 bifurcation stenosis, recommend CTS eval for AVR/CABG. D/w pt in detail, all questions answered. Myron Anderson MD 05/30/2024 2:04 [facility]XR [facility] 2 [id number] 13:47:22EXAM: XR CHEST 2 05/28/2024 5:08 PM HISTORY: 79 years-old Male with syncope and received chest compressions COMPARISON: Chest radiograph 04/23/2024 FINDINGS: Right sided IJ catheter with the tip terminating in the distal SVC. Lungs: The lungs are well-expanded and clear. There is some mild leftbasilar atelectasis. No focal opacities. No pleural abnormalities aredetected. Heart/Mediastinum: Thecardiomediastinal silhouette remains enlarged insize. Aortic knob calcification is noted. Musculoskeletal: No acute osseous abnormality.[facility] 2 [id number] 13:47:22 EXAM: XR CHEST 2 05/28/2024 5:08 PM HISTORY: 79 years-old Male with syncope and received chest compressions COMPARISON: Chest radiograph 04/23/2024 FINDINGS: Right sided IJ catheter with the tip terminating in the distal SVC. Lungs: The lungs are well-expanded and clear. There is some mild leftbasilar atelectasis. No focal opacities. No pleural abnormalities aredetected. Heart/Mediastinum: Thecardiomediastinal silhouette remains enlarged insize. Aortic knob calcification is noted. Musculoskeletal: No acute osseous abnormality.[facility] 11:39:00* Test Item Value Reference Range Interpretation Comme nts MAGNESIUM (test code = 9010634388) 2.0 mg/dL 1.7-2.4 Lab Interpretation (test cod e = 36541-5) Normal [facility] 11:39:00* Test Item Value Reference Range Interpretation Comme nts PHOSPHORUS (test code = 4664019353) 5.2 mg/dL 2.5-5.0 H Lab Interpretation (test cod e = 25960-9) Abnormal [facility]2024-12-26 11:39:00* Test Item Value Reference Range Interpretation Comme nts MAGNESIUM (test code = 1358551869) 2.0 mg/dL 1.7-2.4 Lab Interpretation (test cod e = 54720-0) Normal [facility] 11:39:00* Test Item Value Reference Range Interpretation Comme nts PHOSPHORUS (test code = 0571535337) 5.2 mg/dL 2.5-5.0 H Lab Interpretation (test cod e = 29445-0) Abnormal [facility] Metabolic Panel (NA, K, CL, CO2, GLUCOSE, BUN, CREATININE, CA)2024-05-30 11:38:59* Test Item Value Reference Range Interpretation Comme nts NA (test code = 2187898823) 133 mmol/L 135-145 L K (test code = 1415999574) 4.6 mmol/L 3.5-5.0 Slight hemolysis CL (test code = 0853786199) 106 mmol/L 98-108 CO2 TOTAL (test code = 4211367011) 18 mmol/L 23-31 L AGAP (test code = 6575884932) 9 2-16 BUN (test code = 2120954158) 44 mg/dL 7-23 H Slight hemolysis GLUCOSE (test code = 1496745332) 88 mg/dL 70-110 CREATININE (test code = 2160-0) 3.41 mg/dL 0.60-1.25 H CALCIUM (test code = 2143532866) 7.9 mg/dL 8.6-10.6 L eGFR (test code = 53748-8) 17.5 mL/min/1.73m2 CKD-EPI eGFR (2020). Assuming creatinine has been stable day-to-day for at least three months, the eGFR indicates Category G4 (15 - 29 mL/min/1.73 m2) Lab Interpretation (test code = 88211-0) Abnormal [facility] Metabolic Panel (NA, K, CL, CO2, GLUCOSE, BUN, CREATININE, CA)2024-05-30 11:38:59* Test Item Value Reference Range Interpretation Comme nts NA (test code = 3939366626) 133 mmol/L 135-145 L K (test code = 4552226095) 4.6 mmol/L 3.5-5.0 Slight hemolysis CL (test code = 6687107351) 106 mmol/L 98-108 CO2 TOTAL (test code = 2128596579) 18 mmol/L 23-31 L AGAP (test code = 7847383990) 9 2-16 BUN (test code = 3285188613) 44 mg/dL 7-23 H Slight hemolysis GLUCOSE (test code = 4108504091) 88 mg/dL 70-110 CREATININE (test code = 2160-0) 3.41 mg/dL 0.60-1.25 H CALCIUM (test code = 7287208733) 7.9 mg/dL 8.6-10.6 L eGFR (test code = 02669-4) 17.5 mL/min/1.73m2 CKD-EPI eGFR (2020). Assuming creatinine has been stable day-to-day for at least three months, the eGFR indicates Category G4 (15 - 29 mL/min/1.73 m2) Lab Interpretation (test code = 75597-6) Abnormal [facility] with Anvc9828-61-19 11:04:12* Test Item Value Reference Range Interpretation Comme nts WBC (test code = 6690-2) 5.99 4.20-10.70 RBC (test code = 789-8) 3.57 4.26-5.52 L HGB (test code = 718-7) 10.3 g/dL 12.2-16.4 L HCT (test code = 4544-3) 30.3 % 38.4-49.3 L MCV (test code = 787-2) 84.9 fL 81.7-95.6 MCH (test code = 785-6) 28.9 pg 26.1-32.7 MCHC (test code = 786-4) 34.0 g/dL 31.2-35.0 RDW-SD (test code = 67906-6) 45.3 fL 38.5-51.6 RDW-CV (test code = 788-0) 14.6 % 12.1-15.4 PLT (test code = 777-3) 207 150-328 MPV (test code = 17723-1) 10.2 fL 9.8-13.0 NRBC/100 WBC (test code = 3012432436) 0.0 0.0-10.0 NRBC x10^3 (test code = 1882179742) See_Comment [Automated messa ge] The system which generated this result transmitted reference range: 10*3/?L. The reference range was not used to interpret this result as normal/abnormal. GRAN MAT (NEUT) % (test code = 770-8) 55.0 % IMM GRAN % (test code = 2068936594) 0.30 % LYMPH % (test code = 736-9) 21.4 % MONO % (test code = 5905-5) 9.3 % EOS % (test code = 713-8) 12.7 % BASO % (test code = 706-2) 1.3 % GRAN MAT x10^3(ANC) (test code = 4704377125) 3.29 10*3/uL 1.99-6.95 IMM GRAN x10^3 (test code = 2308212004) 0.00-0.06 LYMPH x10^3 (test code = 731-0) 1.28 10*3/uL 1.09-3.23 MONO x10^3 (test code = 742-7) 0.56 10*3/uL 0.36-1.02 EOS x10^3 (test code = 711-2) 0.76 10*3/uL 0.06-0.53 H BASO x10^3 (test code = 704-7) 0.08 10*3/uL 0.01-0.09 Lab Interpretation (test code = 66230-3) Abnormal [facility] with Kade3400-23-65 11:04:12* Test Item Value Reference Range Interpretation Comme nts WBC (test code = 6690-2) 5.99 4.20-10.70 RBC (test code = 789-8) 3.57 4.26-5.52 L HGB (test code = 718-7) 10.3 g/dL 12.2-16.4 L HCT (test code = 4544-3) 30.3 % 38.4-49.3 L MCV (test code = 787-2) 84.9 fL 81.7-95.6 MCH (test code = 785-6) 28.9 pg 26.1-32.7 MCHC (test code = 786-4) 34.0 g/dL 31.2-35.0 RDW-SD (test code = 30357-8) 45.3 fL 38.5-51.6 RDW-CV (test code = 788-0) 14.6 % 12.1-15.4 PLT (test code = 777-3) 207 150-328 MPV (test code = 93854-3) 10.2 fL 9.8-13.0 NRBC/100 WBC (test code = 0486085819) 0.0 0.0-10.0 NRBC x10^3 (test code = 6125618039) See_Comment [Automated messa ge] The system which generated this result transmitted reference range: 10*3/?L. The reference range was not used to interpret this result as normal/abnormal. GRAN MAT (NEUT) % (test code = 770-8) 55.0 % IMM GRAN % (test code = 1052071272) 0.30 % LYMPH % (test code = 736-9) 21.4 % MONO % (test code = 5905-5) 9.3 % EOS % (test code = 713-8) 12.7 % BASO % (test code = 706-2) 1.3 % GRAN MAT x10^3(ANC) (test code = 6848041454) 3.29 10*3/uL 1.99-6.95 IMM GRAN x10^3 (test code = 0166634165) 0.00-0.06 LYMPH x10^3 (test code = 731-0) 1.28 10*3/uL 1.09-3.23 MONO x10^3 (test code = 742-7) 0.56 10*3/uL 0.36-1.02 EOS x10^3 (test code = 711-2) 0.76 10*3/uL 0.06-0.53 H BASO x10^3 (test code = 704-7) 0.08 10*3/uL 0.01-0.09 Lab Interpretation (test code = 37916-4) Abnormal [facility] [id number] 17:20:07* Test Item Value Reference Range Interpretation Comme nts TROPONIN I (test code = 3788030639) 0.017 ng/mL <=0.034 ANITA (test code = ANITA) Reference (Normal) Range (defined by the 99th percentile reference limit): <= 0.034 ng/mL Note: Cardiac troponin begins to rise 3-4 hours after the onset of ischemia. Repeat in 4-6 hours if the sample was drawn within 3-4 hours of the onset of the symptom and found normal. Diagnosis of myocardial injury is made with acute changes in cTn concentrations with at least one serial sample above the 99th percentile upper reference limit (URL), taken together with the patient's clinical presentation. Biotin has been reported to cause a negative bias, interpret results relative to patient's use of biotin. Lab Interpretation (test code = 15658-9) Normal [facility] [id number] 17:20:07* Test Item Value Reference Range Interpretation Comme nts TROPONIN I (test code = 5618571233) 0.017 ng/mL <=0.034 ANITA (test code = ANITA) Reference (Normal) Range (defined by the 99th percentile reference limit): <= 0.034 ng/mL Note: Cardiac troponin begins to rise 3-4 hours after the onset of ischemia. Repeat in 4-6 hours if the sample was drawn within 3-4 hours of the onset of the symptom and found normal. Diagnosis of myocardial injury is made with acute changes in cTn concentrations with at least one serial sample above the 99th percentile upper reference limit (URL), taken together with the patient's clinical presentation. Biotin has been reported to cause a negative bias, interpret results relative to patient's use of biotin. Lab Interpretation (test code = 11170-9) Normal [place] 240392024-12-25 12:35:58* Test Item Value Reference Range Interpretation Comme nts FREE T4 (test code = 2465722292) 1.03 ng/dL 0.78-2.20 Lab Interpretation (test cod e = 35434-9) Normal [place] 240392024-12-25 12:35:58* Test Item Value Reference Range Interpretation Comme nts FREE T4 (test code = 2831297541) 1.03 ng/dL 0.78-2.20 Lab Interpretation (test cod e = 52028-4) [facility] Yzgzn7582-83-90 12:28:15* Test Item Value Reference Range Interpretation Comme nts IRON (test code = 6168508498) 72 ug/dL 50-160 Slight hemolysis TIBC (test code = 2290431749) 251 ug/dL 250-410 % FE SAT (test code = 2825649952) 29 % 20-50 Lab Interpretation (test code = 94501-3) [facility] Lyoqh7395-23-89 12:28:15* Test Item Value Reference Range Interpretation Comme nts IRON (test code = 1415688194) 72 ug/dL 50-160 Slight hemolysis TIBC (test code = 4808409275) 251 ug/dL 250-410 % FE SAT (test code = 4354273303) 29 % 20-50 Lab Interpretation (test code = 90632-8) [facility] Kmcex6262-04-12 00:27:42* Test Item Value Reference Range Interpretation Comme nts FERRITIN (test code = 1370362052) 262.0 ng/mL 18.0-464.0 ANITA (test code = ANITA) Biotin has been reported to cause a negative bias, interpret results relative to patient's use of biotin. Lab Interpretation (test code = 87683-1) [facility] Gtfoe0441-83-10 00:27:42* Test Item Value Reference Range Interpretation Comme nts FERRITIN (test code = 0950074430) 262.0 ng/mL 18.0-464.0 ANITA (test code = ANITA) Biotin has been reported to cause a negative bias, interpret results relative to patient's use of biotin. Lab Interpretation (test code = 28506-9) Normal [facility] Orpupcz0196-97-85 23:36:42 * Test Item Value Reference Range Interpretation Comme nts TSH (test code = 1259379655) 8.58 0.45-4.70 H Biotin has been reported to cause a negative bias, interpret results relative to patient's use of biotin. Lab Interpretation (test code = 00199-4) [facility]normal [facility] Qghcrvu2630-16-34 23:36:42 * Test Item Value Reference Range Interpretation Comme nts TSH (test code = 4915034112) 8.58 0.45-4.70 H Biotin has been reported to cause a negative bias, interpret results relative to patient's use of biotin. Lab Interpretation (test code = 70271-4) Abnormal [facility] Center[facility]MINAL ARX-UVI1819-50-24 21:47:53* Test Item Value Reference Range Interpretation Comme nts NT-proBNP (test code = 31249-6) 06893 pg/mL <=125 H ANITA (test code = ANITA) Positive: Heart Failure Likely Lab Interpretation (test code = 46542-7) [facility] [id number] 21:47:53* Test Item Value Reference Range Interpretation Comme nts NT-proBNP (test code = 23633-6) 35315 pg/mL <=125 H ANITA (test code = ANITA) Positive: Heart Failure Likely Lab Interpretation (test code = 71191-3) [facility]TR[facility] [id number] 21:30:35* Test Item Value Reference Range Interpretation Comme nts TROPONIN I (test code = 5566845355) 0.011 ng/mL <=0.034 ANITA (test code = ANITA) Reference (Normal) Range (defined by the 99th percentile reference limit): <= 0.034 ng/mL Note: Cardiac troponin begins to rise 3-4 hours after the onset of ischemia. Repeat in 4-6 hours if the sample was drawn within 3-4 hours of the onset of the symptom and found normal. Diagnosis of myocardial injury is made with acute changes in cTn concentrations with at least one serial sample above the 99th percentile upper reference limit (URL), taken together with the patient's clinical presentation. Biotin has been reported to cause a negative bias, interpret results relative to patient's use of biotin. Lab Interpretation (test code = 38476-9) [facility]TR[facility] [id number] 21:30:35* Test Item Value Reference Range Interpretation Comme nts TROPONIN I (test code = 1544931156) 0.011 ng/mL <=0.034 ANITA (test code = ANITA) Reference (Normal) Range (defined by the 99th percentile reference limit): <= 0.034 ng/mL Note: Cardiac troponin begins to rise 3-4 hours after the onset of ischemia. Repeat in 4-6 hours if the sample was drawn within 3-4 hours of the onset of the symptom and found normal. Diagnosis of myocardial injury is made with acute changes in cTn concentrations with at least one serial sample above the 99th percentile upper reference limit (URL), taken together with the patient's clinical presentation. Biotin has been reported to cause a negative bias, interpret results relative to patient's use of biotin. Lab Interpretation (test code = 59038-0) [facility] CenterCreatine [id number] 21:18:12* Test Item Value Reference Range Interpretation Comme nts CK (test code = 6388614360) 40 U/L 33-194 Lab Interpretation (test cod e = 74590-6) [facility] CenterMagnesium2024-12-24 21:18:12* Test Item Value Reference Range Interpretation Comme nts MAGNESIUM (test code = 2850377043) 2.2 mg/dL 1.7-2.4 Lab Interpretation (test cod e = 19071-7) [facility] CenterCreatine [id number] 21:18:12* Test Item Value Reference Range Interpretation Comme nts CK (test code = 0048337133) 40 U/L 33-194 Lab Interpretation (test cod e = 60065-4) Normal [facility] CenterMagnesium2024-12-24 21:18:12* Test Item Value Reference Range Interpretation Comme nts MAGNESIUM (test code = 0802406491) 2.2 mg/dL 1.7-2.4 Lab Interpretation (test cod e = 92692-6) Normal [facility] CenterCT [facility] WO [id number] 21:15:55 EXAM: CT TRAUMA HEAD WO CONTRAST, CT TRAUMA CERVICAL SPINE WO CONTRAST HISTORY: Found on the ground. TECHNIQUE: Routine CTs of the head and cervical spine were performedwithout intravenous contrast, and coronal and sagittal reformatted imageswere generated. COMPARISON: None. FINDINGS: CT HEAD: The ventricles and cerebral sulci are normal in caliber and configuration.No hydrocephalus, midline shift or pathological extra-axial fluidcollection is present. The perimesencephalic cisterns are unremarkable. There is no acute intracranial hemorrhage or significant mass effect. Noparenchymal abnormality. The mariano-white matter differentiation ispreserved. The mastoid air cells and paranasal air sinuses are clear. The calvariumand central skull base are unremarkable. CT CERVICAL SPINE: The cervical curvature is normal. The vertebral bodies are normal in heightand in normal alignment. No facet fracture or subluxation is present. Thecraniocervical junction is intact. The prevertebral soft tissues a reunremarkable. Multilevel degenerative changes in the form of disc space narrowing,endplate sclerosis, osteophytosis and facet arthrosis is noted. Diffuse osteopenia is present. A 1.3 cm right thyroid nodule and does not meet the criteria for follow-up.[facility]CT [facility] WO [id number] 21:15:55EXAM: CT TRAUMA HEAD WO CONTRAST, CT TRAUMA CERVICAL SPINE WO CONTRAST HISTORY: Found on the ground. TECHNIQUE: Routine CTs of the head and cervical spine were performedwithout intravenous contrast, and coronal and sagittal reformatted imageswere generated. COMPARISON: None. FINDINGS: CT HEAD: The ventricles and cerebral sulci are normal in caliber and configuration.No hydrocephalus, midline shift or pathological extra-axial fluidcollection is present. The perimesencephalic cisterns are unremarkable. There is no acute intracranial hemorrhage or significant mass effect. Noparenchymal abnormality. The mariano-white matter differentiation ispreserved. The mastoid air cells and paranasal air sinuses are clear. The calvariumand central skull base are unremarkable. CT CERVICAL SPINE: The cervical curvature is normal. The vertebral bodies are normal in heightand in normal alignment. No facet fracture or subluxation is present. Thecraniocervical junction is intact. The prevertebral soft tissues areunremarkable. Multilevel degenerative changes in the form of disc space narrowing,endplate sclerosis, osteophytosis and facet arthrosis is noted. Diffuse osteopenia is present. A 1.3 cm right thyroid nodule and does not meet the criteria for follow-up.[facility] CT TRAUMA HEAD WO [id number] 21:15:55EXAM: CT TRAUMA HEAD WO CONTRAST, CT TRAUMA CERVICAL SPINE WO CONTRAST HISTORY: Found on the ground. TECHNIQUE: Routine CTs of the head and cervical spine were performedwithout intravenous contrast, and coronal and sagittal reformatted imageswere generated. COMPARISON: None. FINDINGS: CT HEAD: The ventricles and cerebral sulci are normal in caliber and configuration.No hydrocephalus, midline shift or pathological extra-axial fluidcollection is present. The perimesencephalic cisterns are unremarkable. There is no acute intracranial hemorrhage or significant mass effect. Noparenchymal abnormality. The mariano-white matter differentiation ispreserved. The mastoid air cells and paranasal air sinuses are clear. The calvariumand central skull base are unremarkable. CT CERVICAL SPINE: The cervical curvature is normal. The vertebral bodies are normal in heightand in normal alignment. No facet fracture or subluxation is present. Thecraniocervical junction is intact. The prevertebral soft tissues areunremarkable. Multilevel degenerative changes in the form of disc space narrowing,endplate sclerosis, osteophytosis and facet arthrosis is noted. Diffuse osteopenia is present. A 1.3 cm right thyroid nodule and does not meet the criteria for follow-up.[facility] CT TRAUMA CERVICAL SPINE WO [id number] 21:15:55EXAM: CT TRAUMA HEAD WO CONTRAST, CT TRAUMA CERVICAL SPINE WO CONTRAST HISTORY: Found on the ground. TECHNIQUE: Routine CTs of the head and cervical spine were performedwithout intravenous contrast, and coronal and sagittal reformatted imageswere generated. COMPARISON: None. FINDINGS: CT HEAD: The ventricles and cerebral sulci are normal in caliber and configuration.No hydrocephalus, midline shift or pathological extra-axial fluidcollection is present. The perimesencephalic cisterns are unremarkable. There is no acute intracranial hemorrhage or significant mass effect. Noparenchymal abnormality. The mariano-white matter differentiation ispreserved. The mastoid air cells and paranasal air sinuses are clear. The calvariumand central skull base are unremarkable. CT CERVICAL SPINE: The cervical curvature is normal. The vertebral bodies are normal in heightand in normal alignment. No facet fracture or subluxation is present. Thecraniocervical junction is intact. The prevertebral soft tissues a reunremarkable. Multilevel degenerative changes in the form of disc space narrowing,endplate sclerosis, osteophytosis and facet arthrosis is noted. Diffuse osteopenia is present. A 1.3 cm right thyroid nodule and does not meet the criteria for follow-up.[facility] CenterEthanol - For all patients >16 years [id number] 20:58:55* Test Item Value Reference Range Interpretation Comme nts ALCOHOL (test code = 9633578282) 10 mg/dL ANITA (test code = ANITA) Toxic Greater than or equal to 80 mg/dL. NOTE: Whole blood values are approximately 10% to 15% lower than serum and plasma. [facility] CenterCMP2024-12-24 20:58:55* Test Item Value Reference Range Interpretation Comme nts NA (test code = 2779305600) 136 mmol/L 135-145 K (test code = 9085551686) 4.4 mmol/L 3.5-5.0 CL (test code = 2264679642) 103 mmol/L 98-108 CO2 TOTAL (test code = 7694079394) 21 mmol/L 23-31 L AGAP (test code = 0716123307) 12 2-16 BUN (test code = 6566751952) 33 mg/dL 7-23 H GLUCOSE (test code = 4280839833) 94 mg/dL 70-110 CREATININE (test code = 2160-0) 3.39 mg/dL 0.60-1.25 H TOTAL BILI (test code = 0110381589) 0.4 mg/dL 0.1-1.1 CALCIUM (test code = 2683970395) 8.2 mg/dL 8.6-10.6 L T PROTEIN (test code = 4586971861) 6.6 g/dL 6.3-8.2 ALBUMIN (test code = 1915027362) 3.9 g/dL 3.5-5.0 ALK PHOS (test code = 6276359382) 41 U/L 34-122 ALTv (test code = 1742-6) 21 U/L 5-50 AST(SGOT) (test code = 9586340319) 29 U/L 13-40 eGFR (test code = 86325-7) 17.6 mL/min/1.73m2 CKD-EPI eGFR (2020). Assuming creatinine has been stable day-to-day for at least three months, the eGFR indicates Category G4 (15 - 29 mL/min/1.73 m2) Lab Interpretation (test code = 20107-9) [facility]normal [facility] CenterLipase2024-12-24 20:58:55* Test Item Value Reference Range Interpretation Comme nts LIPASE (test code = 4037342167) 504 U/L 0-220 H Lab Interpretation (test cod e = 16481-5) [facility]normal [facility] CenterEthanol - For all patients >16 years old 2024-05-28 20:58:55* Test Item Value Reference Range Interpretation Comme nts ALCOHOL (test code = 3451815976) 10 mg/dL ANITA (test code = ANITA) Toxic Greater than or equal to 80 mg/dL. NOTE: Whole blood values are approximately 10% to 15% lower than serum and plasma. [facility] CenterCMP2024-12-24 20:58:55* Test Item Value Reference Range Interpretation Comme nts NA (test code = 9779559257) 136 mmol/L 135-145 K (test code = 5847653424) 4.4 mmol/L 3.5-5.0 CL (test code = 6996073822) 103 mmol/L 98-108 CO2 TOTAL (test code = 6611239264) 21 mmol/L 23-31 L AGAP (test code = 8026318580) 12 2-16 BUN (test code = 6518921125) 33 mg/dL 7-23 H GLUCOSE (test code = 3491717089) 94 mg/dL 70-110 CREATININE (test code = 2160-0) 3.39 mg/dL 0.60-1.25 H TOTAL BILI (test code = 3454701815) 0.4 mg/dL 0.1-1.1 CALCIUM (test code = 6560729462) 8.2 mg/dL 8.6-10.6 L T PROTEIN (test code = 8013112167) 6.6 g/dL 6.3-8.2 ALBUMIN (test code = 4608423304) 3.9 g/dL 3.5-5.0 ALK PHOS (test code = 8566797349) 41 U/L 34-122 ALTv (test code = 1742-6) 21 U/L 5-50 AST(SGOT) (test code = 1742653271) 29 U/L 13-40 eGFR (test code = 81924-1) 17.6 mL/min/1.73m2 CKD-EPI eGFR (2020). Assuming creatinine has been stable day-to-day for at least three months, the eGFR indicates Category G4 (15 - 29 mL/min/1.73 m2) Lab Interpretation (test code = 58497-8) [facility]normal [facility] CenterLipase2024-12-24 20:58:55* Test Item Value Reference Range Interpretation Comme [facility] LIPASE (test code = 5083005767) 504 U/L 0-220 H Lab Interpretation (test cod e = 98141-5) [facility]normal [facility] CenteraPTT2024-12-24 20:55:54* Test Item Value Reference Range Interpretation Comme [facility] APTT Patient (test code = 3173-2) 24 26-36 L Lab Interpretation (test cod e = 66884-4) [facility]normal [facility] CenterProthrombin Time / [id number] 20:55:54* Test Item Value Reference Range Interpretation Comme [facility] PROTIME PATIENT (test code = 5964-2) 11.4 10.1-12.6 INR (test code = 6301-6) 1.0 Normal INR <1.1; Warfarin Therapeutic range 2.0 to 3.0 or 2.5 to 3.5, depending upon the indications. Lab Interpretation (test code = 09165-3) Normal [facility] CenteraPTT2024-12-24 20:55:54* Test Item Value Reference Range Interpretation Comme [facility] APTT Patient (test code = 3173-2) 24 26-36 L Lab Interpretation (test cod e = 69505-9) [facility]normal [facility] CenterProthrombin Time / [id number] 20:55:54* Test Item Value Reference Range Interpretation Comme [facility] PROTIME PATIENT (test code = 5964-2) 11.4 10.1-12.6 INR (test code = 6301-6) 1.0 Normal INR <1.1; Warfarin Therapeutic range 2.0 to 3.0 or 2.5 to 3.5, depending upon the indications. Lab Interpretation (test code = 58060-2) Normal [facility] CenterType and Screen - The Type and Screen expires at midnight on the 3rd day after it was drawn. A current Type and Screen is required when RBCs are requested. For all other blood products, a Type and Scr een performed during the current hospitalizati...2024-05-28 20:48:00* Test Item Value Reference Range Interpretation Comme [facility] ABO & RH (test code = 20) A POSITIVE IAT (test code = 1185) Negative [facility] CenterType [facility] Screen - The Type and Screen expires at midnight on the 3rd day after it was drawn. A current Type and Screen is required when RBCs are requested. For all other blood products, a Type and Scr een performed during the current hospitalizati...2024-05-28 20:48:00* Test Item Value Reference Range Interpretation Comme nts ABO & RH (test code = 20) A POSITIVE IAT (test code = 1185) Negative [facility] CenterCBC Without [id number] 20:46:14* Test Item Value Reference Range Interpretation Comme [facility] WBC (test code = 6690-2) 6.03 4.20-10.70 RBC (test code = 789-8) 3.71 4.26-5.52 L HGB (test code = 718-7) 10.3 g/dL 12.2-16.4 L HCT (test code = 4544-3) 31.8 % 38.4-49.3 L MCH (test code = 785-6) 27.8 pg 26.1-32.7 MCV (test code = 787-2) 85.7 fL 81.7-95.6 MCHC (test code = 786-4) 32.4 g/dL 31.2-35.0 PLT (test code = 777-3) 225 150-328 MPV (test code = 56964-4) 9.2 fL 9.8-13.0 L RDW-CV (test code = 788-0) 14.7 % 12.1-15.4 RDW-SD (test code = 96042-8) 45.9 fL 38.5-51.6 NRBC x10^3 (test code = 8803987824) See_Comment [Automated messa ge] The system which generated this result transmitted reference range: 10*3/?L. The reference range was not used to interpret this result as normal/abnormal. NRBC/100 WBC (test code = 1240779811) 0.0 0.0-10.0 IPF % (test code = 5990314220) Lab Interpretation (test code = 30859-7) Abnormal [facility] Without [id number] 20:46:14* Test Item Value Reference Range Interpretation Comme nts WBC (test code = 6690-2) 6.03 4.20-10.70 RBC (test code = 789-8) 3.71 4.26-5.52 L HGB (test code = 718-7) 10.3 g/dL 12.2-16.4 L HCT (test code = 4544-3) 31.8 % 38.4-49.3 L MCH (test code = 785-6) 27.8 pg 26.1-32.7 MCV (test code = 787-2) 85.7 fL 81.7-95.6 MCHC (test code = 786-4) 32.4 g/dL 31.2-35.0 PLT (test code = 777-3) 225 150-328 MPV (test code = 78609-3) 9.2 fL 9.8-13.0 L RDW-CV (test code = 788-0) 14.7 % 12.1-15.4 RDW-SD (test code = 06142-2) 45.9 fL 38.5-51.6 NRBC x10^3 (test code = 5100243578) See_Comment [Automated [employer] ge] The system which generated this result transmitted reference range: 10*3/?L. The reference range was not used to interpret this result as normal/abnormal. NRBC/100 WBC (test code = 7427863438) 0.0 0.0-10.0 IPF % (test code = 5293648521) Lab Interpretation (test code = 68863-1) [facility]normal [facility] CenterN-Terminal [id number] 22:42:30* Test Item Value Reference Range Interpretation Comme nts NT-proBNP (test code = 41465-0) 16621 pg/mL <=125 H ANITA (test code = ANITA) Positive: Heart Failure Likely Lab Interpretation (test code = 99972-9) [facility]normal [facility] CenterTROPONIN [id number] 22:34:30* Test Item Value Reference Range Interpretation Comme nts TROPONIN I (test code = 6369770136) 0.016 ng/mL <=0.034 ANITA (test code = ANITA) Reference (Normal) Range (defined by the 99th percentile reference limit): <= 0.034 ng/mL Note: Cardiac troponin begins to rise 3-4 hours after the onset of ischemia. Repeat in 4-6 hours if the sample was drawn within 3-4 hours of the onset of the symptom and found normal. Diagnosis of myocardial injury is made with acute changes in cTn concentrations with at least one serial sample above the 99th percentile upper reference limit (URL), taken together with the patient's clinical presentation. Biotin has been reported to cause a negative bias, interpret results relative to patient's use of biotin. Lab Interpretation (test code = 12351-4) Normal [facility] CenterCT [facility] WO [id number] 21:06:14CT ABDOMEN PELVIS WO CONTRAST 05/06/2024 2:22 PM HISTORY: Hematuria, gross/macroscopic COMPARISON: CT abdomen pelvis 04/27/2034 TECHNIQUE: Axial images of the abdomen and pelvis were acquired withoutadministration of intravenous contrast. Coronal and sagittalreconstructions were also created. FINDINGS:Lack of intravenous contrast limits evaluation of solid organ lesions. LOWER CHEST: Trace bilateral pleural effusion and bronchial wallthickening, decreased from 04/27/2024. Marked global cardiomegaly. Markedcoronary artery and moderate aortic valve calcification. Tip of a catheteris seen within upper right atrium HEPATOBILIARY: The liver is normal in size. No masses consideringlimitation of lack of intravenous contrast.The gallbladder isNo biliary ductal dilatation. SPLEEN: Normal in size. ?PANCREAS: The parenchyma is within normal limits.No ductal dilatation. ? ADRENAL GLANDS: 1.7 cm left adrenal nodule with indeterminate density. KIDNEYS: The kidneys are atrophic, left worse than right. Lobulated rightkidney with focal scarring in the multifocal scarring. The distal leftureter is a stable mildly dilated. A couple of right renal cysts measuringup to 1.5 cm. A 1.5 cm left renal lesion with layering intermediate densitycould represent milk of calcium or internal hemorrhage. GI TRACT: Colonic diverticulosis, extensive at sigmoid colon. No luminaldilatation or bowel wall thickening. The appendix is normal. PERITONEUM AND RETROPERITONEUM: No free air. Trace volume ascites in thepelvic cavity LYMPH NODES: There are scattered subcentimeter retroperitoneal andmesenteric lymph nodes, nonspecific. PELVIS/BLADDER: Marked prostatomegaly measuring 6.4 x 6 x 5.5 cm. Theurinary bladder is decompressed by a Bella. Intravesical gas, could beiatrogenic. Circumferential bladder wall thickening. VESSELS: Within normal limits. Moderate calcified plaque abdominal aortaand ostium of celiac trunk, SMA and bilateral renal arteries, right greaterthan left. BONES AND SOFT TISSUES: Degenerative disc and facet arthropathy worse atthe level of L5-S1 with osteophytosis and intervertebral disc space heightloss associated with moderate bilateral L5-chest neural foraminalnarrowing. Small fat-containing bilateral inguinal hernias, containing trace volume offluid in the right.[facility] CenterBASIC METABOLIC PANEL (NA, K, CL, CO2, GLUCOSE, BUN, CREATININE, CA)2024-05-06 19:50:15* Test Item Value Reference Range Interpretation Comme nts NA (test code = 8871802033) 135 mmol/L 135-145 K (test code = 8049333233) 4.8 mmol/L 3.5-5.0 CL (test code = 2576703112) 102 mmol/L 98-108 CO2 TOTAL (test code = 4307436514) 24 mmol/L 23-31 AGAP (test code = 4612988394) 9 2-16 BUN (test code = 7410837460) 34 mg/dL 7-23 H GLUCOSE (test code = 7004203601) 89 mg/dL 70-110 CREATININE (test code = 2160-0) 2.89 mg/dL 0.60-1.25 H CALCIUM (test code = 7659313216) 8.7 mg/dL 8.6-10.6 eGFR (test code = 68993-2) 21.3 mL/min/1.73m2 CKD-EPI eGFR (2020). Assuming creatinine has been stable day-to-day for at least three months, the eGFR indicates Category G4 (15 - 29 mL/min/1.73 m2) Lab Interpretation (test code = 54198-5) [facility]normal [facility] CenterProthrombin Time / [id number] 19:32:52* Test Item Value Reference Range Interpretation Comme nts PROTIME PATIENT (test code = 5964-2) 11.8 10.1-12.6 INR (test code = 6301-6) 1.1 Normal INR <1.1; Warfarin Therapeutic range 2.0 to 3.0 or 2.5 to 3.5, depending upon the indications. Lab Interpretation (test code = 11567-8) Normal [facility] CenterCB WITH [id number] 19:27:50* Test Item Value Reference Range Interpretation Comme [facility] WBC (test code = 6690-2) 6.99 4.20-10.70 RBC (test code = 789-8) 4.19 4.26-5.52 L HGB (test code = 718-7) 11.9 g/dL 12.2-16.4 L HCT (test code = 4544-3) 35.7 % 38.4-49.3 L MCV (test code = 787-2) 85.2 fL 81.7-95.6 MCH (test code = 785-6) 28.4 pg 26.1-32.7 MCHC (test code = 786-4) 33.3 g/dL 31.2-35.0 RDW-SD (test code = 35420-4) 44.2 fL 38.5-51.6 RDW-CV (test code = 788-0) 14.2 % 12.1-15.4 PLT (test code = 777-3) 192 150-328 MPV (test code = 37387-3) 10.2 fL 9.8-13.0 NRBC/100 WBC (test code = 4609747390) 0.0 0.0-10.0 NRBC x10^3 (test code = 4298839008) See_Comment [Automated [employer] ge] The system which generated this result transmitted reference range: 10*3/?L. The reference range was not used to interpret this result as normal/abnormal. GRAN MAT (NEUT) % (test code = 770-8) 60.6 % IMM GRAN % (test code = 3746693919) 0.30 % LYMPH % (test code = 736-9) 15.2 % MONO % (test code = 5905-5) 10.0 % EOS % (test code = 713-8) 13.2 % BASO % (test code = 706-2) 0.7 % GRAN MAT x10^3(ANC) (test code = 8584634372) 4.24 10*3/uL 1.99-6.95 IMM GRAN x10^3 (test code = 0350821961) 0.00-0.06 LYMPH x10^3 (test code = 731-0) 1.06 10*3/uL 1.09-3.23 L MONO x10^3 (test code = 742-7) 0.70 10*3/uL 0.36-1.02 EOS x10^3 (test code = 711-2) 0.92 10*3/uL 0.06-0.53 H BASO x10^3 (test code = 704-7) 0.05 10*3/uL 0.01-0.09 Lab Interpretation (test code = 33384-0) [facility] [id number] 21:45:23CT ABDOMEN PELVIS WO CONTRAST Indication: Kidney failure, acute NGHIA , HUBBARD , obstructive uropathy ? Comparison: None. RL: Ordering Clinician: GENESIS LANGLEY Technique: Axial CT images of the abdomen and pelvis were performed withoutIV contrast. Sagittal and coronal reformats were created. Dose reductiontechniques were used (ALARA). Technical Quality: Adequate Discussion:Lines/Devices: None. Chest/Vessels: Severe coronary artery disease. Small left pleural effusionand moderate right pleural effusion with dependent consolidation. ?Moderateatherosclerotic changes throughout the aorta. Organs: No acute liver pathology. ?No gallbladder inflammation. ?Thepancreas is normal. ?No splenic masses. 1.5 cm left adrenal nodulemeasuring 31 Hounsfield units nonspecific. : Bilateral [employer] renal atrophy. More severe on the left side than theright side. Moderate left hydronephrosis and left hydroureter without anobstructing stone. Distended bladder. Enlarged prostate measuring 6.1 x6.1x 5.7 cm. The bladder is normal. GI: Diverticulosis without diverticulitis. ?No small bowel obstruction. Normal appendix. Misc.: Subcentimeter lymph nodes are below size criteria. ?Trace amount offree fluid deep within the pelvis. Skeleton: No acute osseous pathology.[facility] Transthoracic [facility] (TTE) [id number] 21:39:04* Test Item Value Reference Range Interpretation Comme nts Height (test code = 3072747053) 74 in Weight (test code = 6848227711) 213 lbs Systolic BP (test code = 1019077789) 110 mmHg Diastolic BP (test code = 0500320259) 50 mmHg Heart Rate (test code = 7900663190) 60 bpm RVOT diameter (test code = 8439908045) 2.5 cm RVOT Proximal Diameter (test code = 4155472703) 3.60 cm MR max PG (test code = 2768856393) 30.70 mm[Hg] MR max jose miguel (test code = 3985403212) 276.80 cm/s Ao root diam (test code = 3578921698) 3.50 cm Mr max jose miguel (test code = 8389166199) 276.8 m/s Aortic root (test code = 4555356308) 3.5 cm Ao root annulus (test code = 3288317225) 3.5 cm BSA (test code = 6384786652) 2.23 m2 LVOT diameter (test code = 6923649600) 2.34 cm LVOT area (test code = 0330248420) 4.30 cm2 LA size (test code = 0222635533) 4.4 cm ACS (test code = 2826548268) 1.70 cm LVIDD (test code = 4082039277) 6.70 cm Left Ventricular End Diastolic Volume by Teichholz Method (test code = 1107788) 232.3 mL IVS (test code = 9286899783) 1.30 cm Interventricular Septum Diastolic Thickness by 2D (test code = 7876974) 1.30 cm LVPWD (test code = 4201617035) 1.29 cm PW (test code = 8132501557) 1.29 cm 0.6-1.1 EF(Teich) (test code = 6770483837) 41.70 % LVIDS (test code = 9488770127) 5.30 cm Left Ventricular End Systolic Volume by Teichholz Method (test code = 7163912) 135.5 mL FS (test code = 5704336030) 21 % EF - 2D (test code = 81134294) 41.70 % PV PEAK VELOCITY (test code = 8059538896) 54.0 cm/s PV peak gradient (test code = 5811410538) 1.17 mmHg MV E-F slope (test code = 8505030105) 36.10 cm/s MV Peak E Jose Miguel (test code = 7342472833) 95.9 cm/s MV valve area p 1/2 method (test code = 9880400930) 3.50 cm2 MV dec slope (test code = 6595948925) 446.50 cm/s2 MV P1/2t max jose miguel (test code = 3147366719) 94.90 cm/s MV Peak A Jose Miguel (test code = 3660105116) 45.1 cm/s E/A ratio (test code = 3237770204) 2.13 ratio LVOT stroke volume (test code = 8136913119) 133.70 cm3 LVOT peak jose miguel (test code = 4422232144) 137.8 cm/s LVOT mn grad (test code = 0464237202) 3.7 mmHg AV LVOT peak gradient (test code = 8350058567) 7.6 mmHg LVOT peak VTI (test code = 9075070101) 31.1 cm LV V1 mean (test code = 6275941377) 88.30 cm/s Aortic valve mean velocity (test code = 1780159387) 209.8 cm/s Ao peak jose miguel (test code = 7498055382) 316.0 cm/s Ao VTI (test code = 4547510003) 73.9 cm AV area by cont VTI (test code = 3182486581) 1.8 cm2 AV area peak jose miguel (test code = 2832742034) 1.9 cm2 Ao max PG (test code = 7487362391) 39.90 mm[Hg] AV peak gradient (test code = 1737851991) 39.9 mmHg AV valve area (test code = 8263102970) 1.81 cm2 AV mean gradient (test code = 3412044773) 20.3 mmHg AV regurgitation pressure 1/2 time (test code = 2653831366) 424.1 ms AI dec slope (test code = 4143989733) 307.90 cm/s2 AI max jose miguel (test code = 5998631031) 445.80 cm/s AI max PG (test code = 6744841807) 79.60 mm[Hg] TR Peak Jose Miguel (test code = 1700533065) 211.6 cm/s Triscuspid Valve Regurgitation Peak Gradient (test code = 5027093336) 17.9 mmHg LAV(MOD-sp4) (test code = 4308021314) 112.90 mL LA Volume Index (BP) (test code = 4659967317) 55.9 mL/m2 LA volume (BP) (test code = 4157186799) 124.7 mL LAV(MOD-sp2) (test code = 7156806069) 127.40 mL A4C EF (test code = 5271289451) 38.60 % EF(sp4-el) (test code = 7851782317) 39.20 % SV(MOD-sp4) (test code = 3616534222) 105.70 mL SV(sp4-el) (test code = 3501362956) 110.70 mL RVOT area (test code = 9521289153) 4.91 cm2 Tapse (test code = 5468670425) 1.52 cm LV Diastolic Volume (BP) (test code = 2773321870) 304.7 mL A2C EF (test code = 8893256496) 29.30 % EF(MOD-bp) (test code = 4537294979) 35.50 % EF(sp2-el) (test code = 1767745217) 31.30 % LV Systolic Volume (BP) (test code = 9812753307) 196.4 mL SV(MOD-bp) (test code = 5574517051) 108.30 mL SV(MOD-sp2) (test code = 5565703916) 87.40 mL EF (test code = 6769428356) 36 Left Ventricular Stroke Volume by 2-D Biplane-MOD (test code = 6134776) 108.3 mL LV Diastolic Volume Index (BP) (test code = 9686683840) 136.6 mL/m2 LV Systolic Volume Index (BP) (test code = 1797507789) 88.1 mL/m2 Radiology Study observation (narrative) (test code = 92973-9) ADD (test code = ADD) Addendum by Natalie Wilde i, MD on 04/28/2024 4:24 PM 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 Increased wall thickness. Severely increased ventricular mass. There is eccentric hypertrophy. Moderate global hypokinesis present. Moderately reduced systolic function with a visually estimated EF of 35 - 40%. EF by 2D Graham biplane is 36%. There is pseudonormal diastolic dysfunction. Elevated left ventricular filling pressure. ?Aortic?Valve: Moderately thickened cusps. Moderate to severe transvalvular regurgitation with a centrally directed jet. Consistent with moderate aortic stenosis (hyperdynamic flow status increaseing estimated gradients/velocities). AV mean gradient is 20.3 mmHg. AV peak velocity is 316.0 cm/s. ?Aorta: Moderately enlarged ascending aorta (48 mm). ?Right?Ventricle: Reduced systolic function. TAPSE is 1.52 cm. ?Tricuspid?Valve: Mild transvalvular regurgitation. Right ventricular systolic pressure is 35-40 mmHg. ?RA pressure is 10-15 mmHg. ?IVC/SVC: IVC diameter is greater than 21 mm and decreases less than 50% during inspiration; therefore the estimated right atrial pressure is elevated (~15 mmHg). Left VentricleLeft ventricle is severely dilated. Increased wall thickness. Severely increased ventricular mass. There is eccentric hypertrophy. Moderate global hypokinesis present. Moderately reduced systolic function with a visually estimated EF of 35 - 40%. EF by 2D Graham biplane is 36%. There is pseudonormal diastolic dysfunction. Elevated left ventricular filling pressure.Right VentricleRight ventricle size is normal. Reduced systolic function. TAPSE is 1.52 cm.Left AtriumLeft atrium is severely dilated.Right AtriumRight atrium is dilated.IVC/SVCIVC diameter is greater than 21 mm and decreases less than 50% during inspiration; therefore the estimated right atrial pressure is elevated (~15 mmHg).Mitral ValveMitral valve structure is normal. Moderate mitral annular calcification. Trace transvalvular regurgitation.Tricuspi d ValveTricuspid valve structure is normal. Mild transvalvular regurgitation. Right ventricular systolic pressure is 35-40 mmHg. RA pressure is 10-15 mmHg.Aortic ValveNot well visualized. Moderately thickened cusps. Moderate to severe transvalvular regurgitation with a centrally directed jet. Consistent with moderate aortic stenosis (hyperdynamic flow status increaseing estimated gradients/velocities). AV mean gradient is 20.3 mmHg. AV peak velocity is 316.0 cm/s.Pulmonic ValveNot well visualized. Trace transvalvular regurgitation. No stenosis.Ascending AortaModerately enlarged ascending aorta (48 mm).PericardiumThe pericardium is normal. No pericardial effusion.Study DetailsStudy quality was adequate. A complete echocardiogram was performed using 2D, color flow Doppler and spectral Doppler. 5 mL of Lumason ultrasound enhancing agent used. [facility] B Surface Antibody (HBsAb)2024-04-27 10:25:51* Test Item Value Reference Range Interpretation Comme [facility] HBsAB (test code = 2583333989) Positive HBsAb Semi-Quantitative (test code = 4395173116) 311.00 mIU/mL ANITA (test code = ANITA) Interpretation: ?Hepatitis B Surface Antibody ? Negative - Patient is considered to be not immune to infection with HBV. ? ? Positive - Anti-HBs detected at greater than or equal to 12 mIU/mL. ?Patient is considered to be immune to infection with HBV. ? [facility] B Core Antibody, [id number] 10:25:51* Test Item Value Reference Range Interpretation Comme [facility] HBC (test code = 1787830653) Negative HBC Semi-Quantitative (test code = 4364825289) 3.83 [facility] B Surface Antigen (HBsAg)2024-04-27 01:14:14* Test Item Value Reference Range Interpretation Comme nts HBsAg Semi-Quantitative (devi t code = 5195-3) 0.07 Negative [facility] TUNNELED 5 OR OLDER NO PORT/[id number] 06:52:57PROCEDURE: Tunneled dialysis catheter placement Procedural PersonnelAttending physician(s): Dr. Gomez Pre-procedure diagnosis: Initiation of hemodialysisPost-procedure diagnosis: SameComplications: NoneUnSh[facility] SouthUS RETROPERITONEAL [id number] 14:05:31HISTORY: CKD IV. TECHNIQUE: Both kidneys are evaluated in multiple planes with the patientin different positions. FINDINGS: RIGHT KIDNEY: Measures 10.8 x 2.9 x 4.2 cm with corticalthickness measuringup to 12-13 mm. No hydronephrosis or perinephric fluidcollection detected. Several 10 mm or smallersize and anechoic lesions areseen, consistent with simple renal cysts. LEFT KIDNEY: Measures 11.8 x4.9 x 5.2 cm in size with cortical thicknessmeasuring up to 7-10 ?mm. ?No hydronephrosis or perinephric fluidcollection. Dilated right renal pelvis noted without any significantcaliectasis. The renalpelvis is dilated up to 16 mm. Several anechoiclesions are detected, largest of 16 mm size on the ventral medial corticalsurface. Quick look at the urinary bladder showed no gross pathology. Amount ofurine accumulated in the bladder lumen was approximately 469 mL. No postvoid study was obtained by the technologist. Incidentally splenomegalynoted. Spleen is 14.8 x 4.2 cm. CONCLUSIONS:1. Dilated left renal pelvis noted without significant caliectasis.2. Bilateral simple renal cysts.3. Moderately distended urinary bladder noted, possibly due to enlargedprostate gland.[facility] CenterThyroid Stimulating [id number] 20:20:06* Test Item Value Reference Range Interpretation Comme nts TSH (test code = 1277688354) 13.80 0.45-4.70 H Biotin has been reported to cause a negative bias, interpret results relative to patient's use of biotin. Lab Interpretation (test code = 95956-2) Abnormal [facility] CenterGlycosylated Hemoglobin (A1C)2024-04-23 20:02:43* Test Item Value Reference Range Interpretation Comme nts HGB A1C (test code = 4548-4) 4.7 % 4.0-5.7 ANITA (test code = ANITA) Reference RangesNormal: <5.7%Prediabetes: 5.7 - 6.4%Diabetes: > 6.5% Lab Interpretation (test code = 11246-6) Normal [facility] CenterN-Terminal Yke-[id number] 18:18:46* Test Item Value Reference Range Interpretation Comme nts NT-proBNP (test code = 86571-5) 15444 pg/mL <=125 H ANITA (test code = ANITA) Positive: Heart Failure Likely Lab Interpretation (test code = 22363-3) Abnormal [facility] CenterXR CHEST 1 [id number] 18:08:23ORDERING PHYSICIAN: Aliyah RASMUSSEN. HISTORY: sob TECHNIQUE: AP COMPARISON: None. FINDINGS: Lungs: ?Diffuse prominence of interstitial markings is seen. There isbibasal consolidation Pleura: ?Small pleural effusions are present. There is no pneumothorax. Mediastinum/Susan: ?No masses or adenopathy. Heart: ?The heart is not enlarged. Other: ?No acute osseous abnormality is seen.[facility] CenterTroponin [id number] 17:43:34* Test Item Value Reference Range Interpretation Comme nts TROPONIN I (test code = 2846286263) 0.031 ng/mL <=0.034 ANITA (test code = ANITA) Reference (Normal) Range (defined by the 99th percentile reference limit): <= 0.034 ng/mL Note: Cardiac troponin begins to rise 3-4 hours after the onset of ischemia. Repeat in 4-6 hours if the sample was drawn within 3-4 hours of the onset of the symptom and found normal. Diagnosis of myocardial injury is made with acute changes in cTn concentrations with at least one serial sample above the 99th percentile upper reference limit (URL), taken together with the patient's clinical presentation. Biotin has been reported to cause a negative bias, interpret results relative to patient's use of biotin. Lab Interpretation (test code = 93852-7) Normal [facility] CenterMagnesium2024-11-19 17:32:33* Test Item Value Reference Range Interpretation Comme nts MAGNESIUM (test code = 4057989508) 1.7 mg/dL 1.7-2.4 Lab Interpretation (test cod e = 28235-6) Normal [facility] CenterCom. Metabolic Panel (55459)2024-04-23 17:32:13* Test Item Value Reference Range Interpretation Comme nts NA (test code = 0964013843) 131 mmol/L 135-145 L K (test code = 2169872369) 4.0 mmol/L 3.5-5.0 CL (test code = 7583040574) 100 mmol/L 98-108 CO2 TOTAL (test code = 1414191832) 23 mmol/L 23-31 AGAP (test code = 8367179574) 8 2-16 BUN (test code = 6907593139) 31 mg/dL 7-23 H GLUCOSE (test code = 0300799135) 90 mg/dL 70-110 CREATININE (test code = 2160-0) 3.61 mg/dL 0.60-1.25 H TOTAL BILI (test code = 7339727946) 0.8 mg/dL 0.1-1.1 CALCIUM (test code = 6307758349) 8.4 mg/dL 8.6-10.6 L T PROTEIN (test code = 5387333838) 6.2 g/dL 6.3-8.2 L ALBUMIN (test code = 7895934068) 3.7 g/dL 3.5-5.0 ALK PHOS (test code = 4660884175) 50 U/L 34-122 ALTv (test code = 1742-6) 22 U/L 5-50 AST(SGOT) (test code = 0872097221) 22 U/L 13-40 eGFR (test code = 88849-8) 16.3 mL/min/1.73m2 CKD-EPI eGFR (2020). Assuming creatinine has been stable day-to-day for at least three months, the eGFR indicates Category G4 (15 - 29 mL/min/1.73 m2) Lab Interpretation (test code = 12954-2) Abnormal [facility] with [id number] 17:19:36* Test Item Value Reference Range Interpretation Comme nts WBC (test code = 6690-2) 7.10 4.20-10.70 RBC (test code = 789-8) 4.47 4.26-5.52 HGB (test code = 718-7) 12.8 g/dL 12.2-16.4 HCT (test code = 4544-3) 39.2 % 38.4-49.3 MCV (test code = 787-2) 87.7 fL 81.7-95.6 MCH (test code = 785-6) 28.6 pg 26.1-32.7 MCHC (test code = 786-4) 32.7 g/dL 31.2-35.0 RDW-SD (test code = 67290-0) 47.2 fL 38.5-51.6 RDW-CV (test code = 788-0) 14.7 % 12.1-15.4 PLT (test code = 777-3) 176 150-328 MPV (test code = 32275-2) 11.1 fL 9.8-13.0 NRBC/100 WBC (test code = 2851621428) 0.0 0.0-10.0 NRBC x10^3 (test code = 9569250095) See_Comment [Automated messa ge] The system which generated this result transmitted reference range: 10*3/?L. The reference range was not used to interpret this result as normal/abnormal. GRAN MAT (NEUT) % (test code = 770-8) 70.6 % IMM GRAN % (test code = 6740318546) 0.10 % LYMPH % (test code = 736-9) 13.1 % MONO % (test code = 5905-5) 9.2 % EOS % (test code = 713-8) 6.2 % BASO % (test code = 706-2) 0.8 % GRAN MAT x10^3(ANC) (test code = 7120266313) 5.01 10*3/uL 1.99-6.95 IMM GRAN x10^3 (test code = 2731322555) 0.00-0.06 LYMPH x10^3 (test code = 731-0) 0.93 10*3/uL 1.09-3.23 L MONO x10^3 (test code = 742-7) 0.65 10*3/uL 0.36-1.02 EOS x10^3 (test code = 711-2) 0.44 10*3/uL 0.06-0.53 BASO x10^3 (test code = 704-7) 0.06 10*3/uL 0.01-0.09 Lab Interpretation (test code = 75503-5) Abnormal [facility] CenterCHEM [id number] 06:46:00* Test Item Value Reference Range Interpretation Comme nts Phosphorus (test code = Phosphorus) 2.8 2.5-4.5 Magnesium Lvl (test code = M agnesium Lvl) 2.1 1.8-2.4 [facility]SPUBWLBBHYOI0743-14-55 06:46:00* Test Item Value Reference Range Interpretation Comme nts AGAP (test code = AGAP) 15.1 10.0-20.0 eGFR (test code = eGFR) 87 Sodium Lvl (test code = Sodium Lvl) 140 135-145 Potassium Lvl (test code = P otassium Lvl) 4.1 3.5-5.1 Chloride Lvl (test code = Chloride Lvl) 108 95-109 BUN (test code = BUN) 11 7-22 Creatinine Lvl (test code = Creatinine Lvl) 0.86 0.50-1.40 Glucose Lvl (test code = Glucose Lvl) 101 70-99 CO2 (test code = CO2) 21 24-32 Calcium Lvl (test code = Calcium Lvl) 8.3 8.5-10.5 [facility] HospitalDbnjxguXCZOUSXBXZ4959-47-25 06:46:00* Test Item Value Reference Range Interpretation Comme nts MPV (test code = MPV) 7.6 7.4-10.4 RDW (test code = RDW) 13.1 11.5-14.5 MCV (test code = MCV) 88.8 80.0-94.0 MCH (test code = MCH) 30.2 pg 27.0-31.0 WBC (test code = WBC) 8.5 3.7-10.4 RBC (test code = RBC) 4.57 4.70-6.10 Hgb (test code = Hgb) 13.8 14.0-18.0 Hct (test code = Hct) 40.5 42.0-54.0 MCHC (test code = MCHC) 34.0 32.0-36.0 Platelet (test code = Platelet) 200 133-450 Lymphocytes (test code = Lymphocytes) 25.4 20.0-40.0 Segs (test code = Segs) 59.0 45.0-75.0 Basophils (test code = Basophils) 0.4 <=1.0 Segs-Bands # (test code = Se gs-Bands #) 5.0 1.5-8.1 Lymphocytes # (test code = Lymphocytes #) 2.1 1.0-5.5 Monocytes (test code = Monocytes) 8.9 2.0-12.0 Eosinophils (test code = Eosinophils) 6.3 <=4.0 Eosinophils # (test code = Eosinophils #) 0.5 <=0.5 Monocytes # (test code = Monocytes #) 0.8 <=0.8 [facility]ATHY[facility] [id number] 06:46:00* Test Item Value Reference Range Interpretation Comme nts Ca Norm WB (test code = Ca Norm WB) 1.14 1.05-1.25 Ca Ion WB (test code = Ca Ion WB) 1.14 1.05-1.25 [facility] HospitalURINE AND [id number] 16:14:00* Test Item Value Reference Range Interpretation Comme nts UA Hyal Cast (test code = UA Hyal Cast) 3 <=2 UA Mucus (test code = UA Mucus) Few /LPF UA Amorph Kimberly (test code = UA Amorph Kimberly) Occasional /HPF UA Sq Epi (test code = UA Sq Epi) None Seen UA Renal Epi (test code = UA Renal Epi) RARE UA Urobilinogen (test code = UA Urobilinogen) <=1.0 mg/dL 0.1-1.0 UA Bili (test code = UA Bili) Negative *NA*(11/15/15 11:14 AM) UA Ketones (test code = UA Ketones) Negative mg/dL UA Glucose (test code = UA Glucose) Negative mg/dL UA Spec Grav (test code = UA Spec Grav) 1.005 UA Bacteria (test code = UA Bacteria) Occasional /HPF UA RBC (test code = UA RBC) no gt <=2 UA WBC (test code = UA WBC) no gt <=5 UA Leuk Est (test code = UA Leuk Est) Negative (11/15/15 11:14 AM) UA Nitrite (test code = UA Nitrite) Negative (11/15/15 11:14 AM) UA Blood (test code = UA Blood) Negative (11/15/15 11:14 AM) UA pH (test code = UA pH) 5.5 5.0-8.0 UA Protein (test code = UA Protein) Negative mg/dL UA Color (test code = UA Color) Light Yellow *NA*(11/15/15 11:14 AM) UA Turbidity (test code = UA Turbidity) Clear (11/15/15 11:14 AM) [facility] HospitalCARDIAC [id number] 12:24:00* Test Item Value Reference Range Interpretation Comme nts Troponin-I (test code = Troponin-I) no gt <=0.40 Troponin-T (test code = Troponin-T) no gt <=0.100 Total CK (test code = Total CK) 87 12-191 CK MB Index (test code = CK MB Index) 2.6 <=2.5 CK MB (test code = CK MB) 2.3 0.5-3.6 [facility]CHEM [id number] 12:24:00* Test Item Value Reference Range Interpretation Comme nts Phosphorus (test code = Phosphorus) 3.0 2.5-4.5 Magnesium Lvl (test code = M agnesium Lvl) 2.4 1.8-2.4 Total Protein (test code = T otal Protein) 6.2 6.4-8.4 Albumin Lvl (test code = Albumin Lvl) 3.3 3.5-5.0 AST (test code = AST) 15 <=37 ALT (test code = ALT) 31 <=65 Bili Direct (test code = Bili Direct) 0.1 <=0.3 Bili Total (test code = Bili Total) 0.6 0.2-1.3 Alk Phos (test code = Alk Phos) 31 39-136 Globulin (test code = Globulin) 2.9 2.0-4.0 A/G Ratio (test code = A/G Ratio) 1.1 0.7-1.6 Bili Indirect (test code = B beena Indirect) 0.5 <=1.0 Lactic Acid Lvl (test code = Lactic Acid Lvl) 1.0 0.5-2.2 eGFR (test code = eGFR) 77 Sodium Lvl (test code = Sodium Lvl) 138 135-145 Potassium Lvl (test code = P otassium Lvl) 4.4 3.5-5.1 Chloride Lvl (test code = Chloride Lvl) 109 95-109 CO2 (test code = CO2) 18 24-32 Calcium Lvl (test code = Calcium Lvl) 8.0 8.5-10.5 Glucose Lvl (test code = Glucose Lvl) 89 70-99 BUN (test code = BUN) 11 7-22 Creatinine Lvl (test code = Creatinine Lvl) 0.98 0.50-1.40 AGAP (test code = AGAP) 15.4 10.0-20.0 [facility] CenterSciscnkLHQGUTXNAA1571-17-95 12:24:00* Test Item Value Reference Range Interpretation Comme nts Eosinophils # (test code = Eosinophils #) 0.4 <=0.5 Monocytes (test code = Monocytes) 7.9 2.0-12.0 Segs (test code = Segs) 68.3 45.0-75.0 Lymphocytes (test code = Lymphocytes) 19.3 20.0-40.0 Lymphocytes # (test code = Lymphocytes #) 1.8 1.0-5.5 Segs-Bands # (test code = Se gs-Bands #) 6.3 1.5-8.1 Basophils (test code = Basophils) 0.4 <=1.0 Eosinophils (test code = Eosinophils) 4.1 <=4.0 Monocytes # (test code = Monocytes #) 0.7 <=0.8 INR (test code = INR) 1.12 0.85-1.17 PTT (test code = PTT) 26.0 s 22.9-35.8 PT (test code = PT) 14.7 s 12.0-14.7 Hct (test code = Hct) 41.3 42.0-54.0 MCV (test code = MCV) 90.2 80.0-94.0 Hgb (test code = Hgb) 13.8 14.0-18.0 MCHC (test code = MCHC) 33.5 32.0-36.0 MPV (test code = MPV) 7.5 7.4-10.4 RDW (test code = RDW) 13.1 11.5-14.5 Platelet (test code = Platelet) 212 133-450 MCH (test code = MCH) 30.2 pg 27.0-31.0 WBC (test code = WBC) 9.2 3.7-10.4 RBC (test code = RBC) 4.58 4.70-6.10 [facility] HospitalPARATHYROID [id number] 12:24:00* Test Item Value Reference Range Interpretation Comme nts Ca Norm WB (test code = Ca Norm WB) 1.03 1.05-1.25 Ca Ion WB (test code = Ca Ion WB) 1.04 1.05-1.25 [facility] HospitalSPECIAL [id number] 12:24:00* Test Item Value Reference Range Interpretation Comme nts Hgb A1C (test code = Hgb A1C) 5.0 [facility] Consult Notes Date/Time Note Provider Source 2024-08-05 14:49:13 Associated Order(s): CONSULT SPEECH Speech-Language Pathology Modified Barium Swallow (MBS) Study 08/05/2024 Mayank Hurley : 1945 Age/Sex: 79 year old male Time In/Out: 7745-5590 Referring Physician: Alvarez Crouch Date of Referral: 08/05/2024 Medical Diagnosis: oropharyngeal dysphagia; feeding difficulty Reason for Referral: r/o aspiration, objectively evaluate the oropharyngeal swallow with imaging, assess for safest and least restrictive diet, determine safety for PO intake, and objectively evaluate for any change in swallowing since previous objective assessment SUBJECTIVE: Patient awake/alert, agreeable to evaluation. Patient states he is going to dialysis after MBS. OBJECTIVE: Mayank Hurley was seen for a modified barium swallow study (MBS). Per HPI, "Mayank Hurley is a 79 year old with PMH ESRD secondary to BPH (HD T//Mon), chronic indwelling bella, CAD, HFrEF (LVEF 35-40% on TTE 05/2024) who was previously admitted to the SICU after AVR, CABG x 2, and ascending aortic aneurysm repair on 07/19/[address] Sherman. The patient progressed well, and was transferred to the floor on 07/24. Yesterday, the patient had a worsening acidosis with significant carbon dioxide retention. Patient transferred to the ICU for respiratory support, neuro-monitoring, and a higher level of care." See chart for further details. Pertinent Imaging: XR Chest 1 vw Result Date: 08/05/2024 FINDINGS/IMPRESSION: Lines/tubes: Right IJ double lumen catheter tips project over the lower SVC/right atrium. Right chest pigtail tube is a staple in position. Lungs/Pleura: Small right and moderate left-sided pleural effusions. No pneumothorax. Unchanged left lower lobe airspace opacity. No new consolidation. Heart/Mediastinum: The cardiac silhouette remains enlarged. Bones and soft tissues: No acute osseous abnormality is identified. Preliminary Report Dictated by Resident: Silviano Dominguez MD., have reviewed this study and agree with the above report. XR Chest 1 vw Result Date: 08/04/2024 Impression: Mild perihilar and basilar opacities without change. Small left pleural effusion. No visible pneumothorax. RL: [id number] HS: Y Chest 1 vw Result Date: 08/02/2024 Tip of the right internal jugular vein central catheter projects over the cavoatrial junction. Right PICC tail catheter is in unchanged position projecting over the mid lung. Left pigtail catheter has been removed. Unchanged small left pleural effusion with adjacent atelectasis or consolidation. Unchanged background of interstitial pulmonary edema. No pneumothorax. Unchanged cardiomegaly. XR Chest 1 vw Result Date: 08/02/2024 No significant change from prior study. Grossly unchanged moderate left pleural effusion with associated left lower lung consolidation. Right costophrenic angle appears clear. Of note, trace or small pleural effusion could still be present in this area. Correlate with chest tube output. Carrie Patel MD., have reviewed this study and agree with the above report. XR Chest 1 vw Result Date: 08/01/2024 1. Bilateral pleural catheters remain in stable location. In a left pleural effusion persists with left basilar atelectasis. No pneumothorax is identified. 2. The right subclavian catheter terminates over the distal superior vena cava. RL: [id number] Chest 1 vw Result Date: 07/31/2024 Decreased pulmonary vascular congestion. Unchanged retrocardiac consolidation and small left pleural effusion. End of Report Chest 1 vw Result Date: 07/30/2024 Appropriately positioned right IJ line. Interval placement of a left pleural drainage catheter. Otherwise, stable support apparatus. Decreased size of left pleural effusion, now moderate. Improving left mid to lower lung atelectasis. Mild pulmonary interstitial edema. [id number] Chest 1 view 07/30/2024 6:54 Right and left pleural drainage catheters in stable position. Right IJ dual lumen catheter placed is stable. Further decrease in left pleural effusion. Lungs are much better expanded and aerated. Pulmonary interstitial edema has diminished. Preliminary Report Dictated by Resident: Silviano Guzman MD., have reviewed this study and agree with the above report. XR Chest 1 vw Result Date: 07/30/2024 Appropriately positioned right IJ line. Interval placement of a left pleural drainage catheter. Otherwise, stable support apparatus. Decreased size of left pleural effusion, now moderate. Improving left mid to lower lung atelectasis. Mild pulmonary interstitial edema. [id number] Chest 1 view 07/30/2024 6:54 Right and left pleural drainage catheters in stable position. Right IJ dual lumen catheter placed is stable. Further decrease in left pleural effusion. Lungs are much better expanded and aerated. Pulmonary interstitial edema has diminished. Preliminary Report Dictated by Resident: Silviano Guzman MD., have reviewed this study and agree with the above report. XR Chest 1 vw Result Date: 07/30/2024 Appropriately positioned right IJ line. Interval placement of a left pleural drainage catheter. Otherwise, stable support apparatus. Decreased size of left pleural effusion, now moderate. Improving left mid to lower lung atelectasis. Mild pulmonary interstitial edema. [id number] Chest 1 view 07/30/2024 6:54 Right and left pleural drainage catheters in stable position. Right IJ dual lumen catheter placed is stable. Further decrease in left pleural effusion. Lungs are much better expanded and aerated. Pulmonary interstitial edema has diminished. Preliminary Report Dictated by Resident: Silviano Guzman MD., have reviewed this study and agree with the above report. XR Chest 1 vw Result Date: 07/29/2024 Appropriately positioned support apparatus. Left mid to lower lung zone airspace opacity concerning for developing infection, new from the prior examination. Moderate bilateral pleural effusions with bibasilar atelectasis. Preliminary Report Dictated by Resident: Silviano Guzman MD., have reviewed this study and agree with the above report. XR Chest 1 vw Result Date: 07/29/2024 FINDINGS/IMPRESSION: A pigtail drainage catheter projects over the right lung base. The right IJ line catheter tip projects over the right atrium. Lung volumes are unchanged. Moderate left pleural effusion with adjacent atelectasis. No right-sided pleural fusion or pneumothorax. Improved right basilar atelectasis. The cardiac silhouette is enlarged, unchanged. Calcified aorta. No acute osseous abnormality. Sternotomy wires are intact and well aligned. Preliminary Report Dictated by Resident: Silviano Guzman MD., have reviewed this study and agree with the above report. XR Chest 1 vw Result Date: 07/29/2024 Grossly unchanged size of small right and moderate left pleural effusions. Bilateral chest tubes in place. ICarrie MD., have reviewed this study and agree with the above report. CT Head wo contrast Result Date: 07/27/2024 Redemonstrated acute to subacute infarcts in the right occipital lobe and right cerebellar hemisphere. No evidence of hemorrhagic transformation. MR Brain wo contrast Result Date: 07/26/2024 Incomplete study. Acute to subacute infarctions of the right occipital lobe, right cerebellum and right parasagittal frontal lobe. Preliminary Report Dictated by Resident: Ivania Dominguez MD., have reviewed this study and agree with the above report. CT Thorax wo contrast Result Date: 07/26/2024 1. Status post recent aortic valve replacement and ascending thoracic aortic graft placement. Moderate volume of fluid distending pericardial recesses, small pericardial effusion, and moderate retrosternal seroma/hematoma. 2. Large joint effusions. 3. Complete atelectasis of lower lobes. End of report. 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 Severe attenuation/near occlusion of the P2 segment of the right posterior cerebral artery. Developmentally hypoplastic right vertebral artery with poor visualization of the V4 segment which may be severely hypoplastic or occluded. Moderate to large bilateral pleural effusions. 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 Severe attenuation/near occlusion of the P2 segment of the right posterior cerebral artery. Developmentally hypoplastic right vertebral artery with poor visualization of the V4 segment which may be severely hypoplastic or occluded. Moderate to large bilateral pleural effusions. Chest 2 Views - Upright ( PA, LAT) on POD # 3 Result Date: 07/25/2024 Bilateral moderate pleural effusions with compressive atelectasis or consolidation. Carrie Patel MD., have reviewed this study and agree with the above report. XR Chest 1 vw Result Date: 07/23/2024 FINDINGS/IMPRESSION: Interval removal of the endotracheal and enteric tubes. The left IJ [place] catheter tip projects over the pulmonary outflow tract. Right central line tip terminates at the level of distal SVC. Left chest tube tip projects over the left costophrenic angle. 2 drains tips overlie the left upper and left lower mediastinum. Pacer wires are noted. Lungs: The lung volumes are normal. Interval development of the hazy airspace opacities of the right mid lung that can be seen with aspiration/infection or atelectasis. Correlate clinically. Mild left basilar atelectasis and small pleural effusion. Heart/Mediastinum: Post-CABG and aortic valve replacement changes noted. Persistent cardiomegaly. Aortic arch calcification is present. Bones and soft tissues: Sternotomy wires in satisfactory alignment. External defibrillator electrodes noted Preliminary Report Dictated by Resident: Silviano Cano MD., have reviewed this study and agree with the above report. XR Chest 1 vw Result Date: 07/22/2024 1. No pneumothorax. 2. Increased pulmonary vascular congestion. 3. Increased bilateral pleural effusions, right greater than left. RL: 135 Chest 1 View Result Date: 07/20/2024 1. Distal tip of endotracheal tube measuring 8.8 cm from dante. Consider advancement by 3 cm and reimaging. 2. Mild bibasilar atelectasis and small left-sided pleural effusion. RL: [id number] AFC: [id number] END OF REPORT Abdomen XRay 1 View Result Date: 07/19/2024 FINDINGS/IMPRESSION: The tip of the gastric tube projects over the proximal gastric body and the side-port projects over the gastroesophageal junction. Slight further advancement is recommended. Chest tubes/mediastinal drains and a [place]-Dianelys catheter are partially seen. The visualized bowel loops are mildly distended with a nonobstructive pattern. Previous BUILDING MANAGER Services/Swallow History: Patient seen 07/29/24 for clinical swallow evaluation. BUILDING MANAGER rec'd NPO and FEES. FEES completed 07/29/24: mild oropharyngeal dysphagia; deep penetration and aspiration of thin liquids (PAS 5, 8); mild-moderate pharyngeal residue; retrograde flow visualized. Patient was seen for additional therapy sessions. See previous BUILDING MANAGER note for further details. Past Medical History: Diagnosis Date BPH (benign prostatic hyperplasia) Erectile dysfunction GERD (gastroesophageal reflux disease) HTN (hypertension) Past Surgical History: Procedure Laterality Date AORTIC VALVE REPLACEMENT N/A 07/19/2024 Surgeon: Laura Sherman MD; Location: [facility] ASCENDING AORTIC ANEURYSM REPAIR N/A 07/19/2024 Surgeon: Laura Sherman MD; Location: [facility] CELINE CORONARY ARTERY BYPASS GRAFT N/A 07/19/2024 Surgeon: Laura Sherman MD; Location[facility] General Behavior: Alert, Calm, and Cooperative Hearing: WFL for speech Respiratory Status: room air Orientation/Cognition: - Patient oriented to: did not test - Response type: verbal - Follows 1-step commands: Yes Current Diet Texture/Means of Nutrition: soft and bite sized (IDDSI level 6)-textured diet with mildly thick/nectar-liquids (IDDSI level 2) Oral Motor Exam Dentition and Oral Cavity: dentate, natural dentition, moist oral mucosa, and clean oral cavity Face within normal limits and symmetrical Jaw within normal limits and symmetrical Lips within normal limits and symmetrical Tongue impaired function, characterized by slight L tongue deviation Palate within normal limits and symmetrical Vocal Quality dysphonic Speech clear/intelligible Volitional Cough Did not test EVALUATION Patient presented with barium in thin liquid (0), nectar/mildly-thick liquid (2), pudding (4), and regular solid (7) consistencies viewed under fluoroscopy in the lateral plane/s with the gameroom technician, later reviewed with the radiologist. Oral phase findings Lip closure 0= No labial escape Tongue control 0= Cohesive bolus between tongue to palatal seal Bolus preparation 0= Timely & efficient chewing and mashing Bolus transport 1= Delayed initiation of tongue motion Oral residue 2= Residue collection on oral structures Initiation of swallow 0= Bolus head at posterior angle of ramus (first hyoid excursion), 1= Bolus head in valleculae, and 2= Bolus head at posterior laryngeal surface of epiglottis Pharyngeal phase findings Velar elevation 0= No bolus between soft palate (SP)/pharyngeal wall (PW) Laryngeal elevation 0= Complete superior movement of thyroid cartilage with complete approximation of arytenoids to epiglottic petiole Anterior hyoid excursion 1= Partial anterior movement Epiglottic movement 0= Complete inversion Laryngeal vestibule closure 1= Incomplete; narrow column air/contrast in laryngeal vestibule Pharyngeal stripping wave 1= Present - diminished Pharyngeal contraction (A/P) NA PES opening 1= Partial distension/partial duration; partial obstruction of flow BOT retraction 1= Trace column of contrast or air between TB and PW Pharyngeal residue 2= Collection of residue within or on pharyngeal structures and LOCATION E: Pyriform Sinuses Esophageal findings Esophageal clearance NA 8-point Penetration- Aspiration Scale (PAS) Thin liquid (IDDSI Level 0) 3 - enters the airway, remains above vocal cords and is not ejected [place]/Mildly-thick liquid (IDDSI Level 2) 1 - material does not enter airway Pudding (IDDSI Level 4) 1 - material does not enter airway Chewable Solid (IDDSI Level 7) 1 - material does not enter airway Other consistency given: n/a NA - consistency not given Anatomic/positional findings appearance of cervical osteophytes at level/s C5-C6 and deep/cavernous/atrophic pharyngeal space Compensatory swallow strategies Bolus Modification - various bolus textures and sizes/amounts given as stated above Mode of Presentation - presented by spoon, cup, straw Liquid Wash - effective at reducing residue of chewable solid Images/loops available for review in PACS. Patient/Family Education: Provided verbally. Reviewed MBS loops/images. Discussed findings of evaluation, recommendations and BUILDING MANAGER plan of care. Discussed risks of aspiration/dysphagia and possible associated complications including respiratory distress, respiratory infections (such as PNA), weight loss/difficulty meeting nutritional needs, possible need for mechanical ventilation, and even . Discussed recommendations for reducing risks of acquiring an aspiration-related respiratory infection including frequent, thorough oral hygiene care and maintaining good mobility as able. Educated about swallow precautions. Patient/family verbalized understanding and is in agreement with plan of care. RN and referring provider notified of findings and recommendations. Patient/Family Goal: safe PO intake ASSESSMENT: Mayank Hurley presents with Diagnosis: mild pharyngeal dysphagia, but grossly safe/functional oropharyngeal swallow Etiology of dysphagia: in the setting of advanced age/deconditioning Dysphagia characterized: with primary impairment in pharyngeal efficiency Oral phase findings: delayed initiation of lingual movements for AP oral transit and oral residue Pharyngeal phase findings: reduced tongue base retraction, impaired anterior hyoid excursion, impaired pharyngeal stripping wave, incomplete laryngeal vestibular closure, and impaired PES/UES opening Esophageal phase findings: NA - did not evaluate this date Swallow efficiency: mild pharyngeal residue mostly with liquidsin pyriform sinuses Swallow safety: penetration of thin liquids (PAS 3); no aspiration Effective compensatory strategies: liquid wash effective at reducing pharyngeal residue of chewable solid Risk for aspiration: yes Factors increasing risk for aspiration-related respiratory complication such as pneumonia: reduced mobility Risk for malnutrition/dehydration or not meeting nutritional needs: unknown Additional comments: Patient appears grossly safe to continue an oral diet. Impressions: mild pharyngeal dysphagia but grossly safe an functional oropharyngeal swallow; penetration of thin liquids (PAS 3); no aspiration; mild pharyngeal residue Prognosis: is good for safe po intake with adherence to swallow precautions due to above findings. PLAN: Diet: Recommend patient advance to a regular (IDDSI level 7)-textured diet with thin liquids (IDDSI level 0) Precautions: - Swallow Precautions: single sips at a time, alternate bites/sips, remain upright after PO intake, and slow rate of intake - Recommend elevated head of bed and frequent, thorough oral hygiene care due to possible risk for aspiration. - Recommend patient be closely monitored for s/sx of aspiration or signs of a developing respiratory infection or worsening respiratory status (i.e. throat clearing/coughing with po, wet/gurgled voice, fever spikes 30-60 mins after meals, increased chest congestion, leukocytosis, increased O2 requirements, etc.). If observed or suspected, recommend pt be made NPO pending BUILDING MANAGER re-assessment. Additional Referrals: - None evident at this time. Continued BUILDING MANAGER services: No further acute BUILDING MANAGER services indicated at this time, so service is signing off. Please re-consult if indicated. Thank you. Discharge Recommendations: - Defer to PT/OT and/or medical team. Geri Corley MA, [facility]-BUILDING MANAGER Speech-Language Pathologist Office [phone] Pager: [phone] [facility] 2024-07-30 10:09:00 Patient agreeable to PT. Patient Seated on bedside commode, and Heels offloaded? No, notified nurse the need for Heels floating , Spouse present and Nursing present. Nurse requested that patient be placed back in bed secondary to elevated heart rate and needing an assessment. Patient assisted back to bed as follows. Recommend nursing staff utilize Mod A for transfers, wheel chair for mobility (Someone else push, patient has sternal precautions) to safely assist patient with mobility out of the bed or chair. PHYSICAL THERAPY RE-EVALUATION Discharge Recommendations: Therapy Needs and Potential: Patient demonstrates guarded potential to improve and meet therapy goals with further physical therapy services. Patient appears motivated to improve their functional mobility and return to their previous level of function. Patient demonstrates ability to tolerate atleast 30-60 minutes of physical therapy with active participation. Challenges to Home Transition: increased risk of falls decreased caregiver availability environmental barriers Equipment recommendations: wheelchair Vs Placement Current Functional Status and/or Treatment: AM-PAC 6 Clicks (Raw Score 0=Dependent, 24=Independent; Low function Raw Score 0= Dependent, 32=Independent): Raw Score - Basic Mobility : 11 T-Scale Score - Basic Mobility : 30.25 Patient Vital Prior to Functional Activity: HR 138 BPM, SpO2 96% Bed Mobility: Sit to supine: Maximum Assistance Sitting balance Fair+ Repositioned patient to head of bed: Total Assistance x2 At end of session, patient requires Max A for managing trunk and B LE during transition from sitting edge of bed to supine Dizziness No Transfers: Sit to stand: Moderate Assistance using no device, embracing pillow Stand to sit: Moderate Assistance using no device, embracing pillow Static/dynamic standing balance: Poor+ Patient requires verbal/tactile cues for proper foot placement and body positioning for optimal technique with sit to stand transfer. Patient requires Mod A for stand and for stability once in standing as patient has decreased control of center of gravity over base of support Dizziness No Ambulation: Assisted patient with ambulation as follows: lateral stepping 3 feet using handheld assist and Moderate Assistance. Patient presenting with shuffling gait pattern. Patient requires Mod A for facilitating weight shifting in order to allow for LE advancement during side stepping from bed side commode to bedside Dizziness No Therapeutic exercise: patient educated in Fall prevention, Joint protection, Sternal precautions, and Movement restrictions. and patient/caregiver verbalizes understanding of instructions. Patient was educated on the importance of calling the staff for assistance to ensure safety and to prevent injury Patient educated on fall prevention strategies to reduce risks of falls. Patient educated on safe progression of activities in order to safely return to prior level of function. Patient educated on breathing techniques for improved activity tolerance Patient educated on sternal precautions before and after session for improved retention. After session, patient in semichair position in bed and Heels offloaded? Yes Using pillows, Spouse present, Vital signs stable , SCDs donned and engaged, and GAURAV LE elevated. Call button provided. All needs met, and nursing notified and aware. Patient Vitals After Functional Activity: HR 95 BPM, BP 125/53 MAP (72), SpO2 100% PLAN OF CARE: While in the hospital, PT will follow patient at least 3 times per week,once or twice a day, per patient's tolerance and needs. 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] Reason for reassessment: Change in medical status Suspected ischemic or hemorraghic stroke patient: Yes, Pre-Stroke Modified [place] Score: 1 - No significant disability, despite symptoms; able to perform all usual duties and activities Weight Bearing Precaution: NA, no lifting greater than 10 lbs General Precautions: PPE used:Gloves, General, Fall, Sternal, Lines/Tubes, Cardiac, Bella catheter, Chest tube B midaxillary, IV B UE, oxygen: Nasal canula, dialysis catheter located Right Subclavian Bracing/Cast present or required:N/A SUBJECTIVE: I feel ok Patient goal: To try and walk at some point PAIN: -Pain Description: aching -Pain Location: sternum -Pain rating before treatment: 1, After treatment: 1 -Pain Management: Nursing Notified, Decreased movement aides in some pain reduction, and Repositioning Provided OBJECTIVE: Cognition: Oriented to: person, place, date/time, and situation Awake: Yes Alert: Yes Follows Commands: Yes 1-Step Yes Multi-Step No Inconsistent: Yes NEUROLOGICAL Light Touch: within functional limits bilateral LE Heel to castro: Impaired B LE Tone: Normal B LE BALANCE: Sitting: Static: Fair+ Dynamic: Fair+ Standing: Static: Poor+ Dynamic: Poor+ RANGE OF MOTION: within functional limits bilateral LE STRENGTH: Proximal Musculature Grossly 2+/5 in B LE, Distal Musculature Grossly 4+/5 in B LE ENDURANCE: Poor+ Nasal canula 5 L PROBLEM LIST: Decline in bed mobility, Decline in gait, Decline in transfers, Decreased strength, Decreased endurance, Decreased balance, Safety awareness deficits, Pain, Decreased Coordination, and Decreased Motor Planning ASSESSMENT: Patient is a 79 year old male seen secondary to the above listed diagnosis. Patient would benefit from continued PT to address the above listed deficits to maximize independence and safety with functional mobility. Rehabilitation Potential: guarded Goals: The following goals are to maximize independence and safety with functional mobility to eventually return to prior living situation and prior functional status. Upon discharge, patient and/or family will demonstrate the followin. Supine-sit: Independent Sit to supine: Independent Sitting balance Good 2. Sit to stand: Independent using no device Stand to sit: Independent using no device 3. Independent with ambulation, Feet: 300 using least assistive device. Treatment Plan: Gait training, Therapeutic exercise, Transfer training, Balance training, Bed mobility training, Equipment needs assessment, Safety education, patient/caregiver education, Pain management, Neuromuscular Re-Education, and Functional Motor Training Patient and Significant other provided with preferred teaching of verbal information on safety, sternal precautions, and fall prevention. Shows readiness to learn. Verbal instruction teaching provided. Individual is able to read and verbalizes understanding of teaching provided. Total Time Tx Codes in Minutes: 12 min Total Treatment Time in Minutes: 31 min Junior Henry PT, DPT [facility] Rehabilitation Services ENT SAFETY OFFICER [facility] [[email or web address] 2024-07-29 13:24:59 Associated Order(s): CONSULT SPEECH Speech-Language Pathology Flexible Endoscopic Evaluation of Swallowing (FEES) 07/29/2024 Mayank Hurley : 1945 Age/Sex: 79 year old male Time In/Out: [id number] Referring Physician: Aliyah March Date of Referral: 07/29/2024 Medical Diagnosis: oropharyngeal dysphagia; feeding difficulty Reason for Referral: r/o aspiration, objectively evaluate the oropharyngeal swallow with imaging, assess for safest and least restrictive diet, and determine safety for PO intake SUBJECTIVE: Patient awake/alert, agreeable to evaluation. at bedside. OBJECTIVE: Mayank Hurley was seen for a flexible endoscopic evaluation of swallowing (FEES). Per HPI, "Mayank Hurley is a 79 year old with PMH ESRD secondary to BPH (HD T//Mon), chronic indwelling bella, CAD, HFrEF (LVEF 35-40% on TTE 05/2024) who was previously admitted to the SICU after AVR, CABG x 2, and ascending aortic aneurysm repair on 07/19/[address] Sherman. The patient progressed well, and was transferred to the floor on 07/24. Yesterday, the patient had a worsening acidosis with significant carbon dioxide retention. Patient transferred to the ICU for respiratory support, neuro-monitoring, and a higher level of care." See chart for further details. Pertinent Imaging: XR Chest 1 vw Result Date: 07/29/2024 Grossly unchanged size of small right and moderate left pleural effusions. Bilateral chest tubes in place. Carrie Patel MD., have reviewed this study and agree with the above report. CT Head wo contrast Result Date: 07/27/2024 Redemonstrated acute to subacute infarcts in the right occipital lobe and right cerebellar hemisphere. No evidence of hemorrhagic transformation. MR Brain wo contrast Result Date: 07/26/2024 Incomplete study. Acute to subacute infarctions of the right occipital lobe, right cerebellum and right parasagittal frontal lobe. Preliminary Report Dictated by Resident: Ivania Dominguez MD., have reviewed this study and agree with the above report. CT Thorax wo contrast Result Date: 07/26/2024 1. Status post recent aortic valve replacement and ascending thoracic aortic graft placement. Moderate volume of fluid distending pericardial recesses, small pericardial effusion, and moderate retrosternal seroma/hematoma. 2. Large joint effusions. 3. Complete atelectasis of lower lobes. End of report. 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 Severe attenuation/near occlusion of the P2 segment of the right posterior cerebral artery. Developmentally hypoplastic right vertebral artery with poor visualization of the V4 segment which may be severely hypoplastic or occluded. Moderate to large bilateral pleural effusions. 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 Severe attenuation/near occlusion of the P2 segment of the right posterior cerebral artery. Developmentally hypoplastic right vertebral artery with poor visualization of the V4 segment which may be severely hypoplastic or occluded. Moderate to large bilateral pleural effusions. Chest 2 Views - Upright ( PA, LAT) on POD # 3 Result Date: 07/25/2024 Bilateral moderate pleural effusions with compressive atelectasis or consolidation. I, Carrie Foss MD., have reviewed this study and agree with the above report. XR Chest 1 vw Result Date: 07/23/2024 FINDINGS/IMPRESSION: Interval removal of the endotracheal and enteric tubes. The left IJ [place]ian[place] catheter tip projects over the pulmonary outflow tract. Right central line tip terminates at the level of distal SVC. Left chest tube tip projects over the left costophrenic angle. 2 drains tips overlie the left upper and left lower mediastinum. Pacer wires are noted. Lungs: The lung volumes are normal. Interval development of the hazy airspace opacities of the right mid lung that can be seen with aspiration/infection or atelectasis. Correlate clinically. Mild left basilar atelectasis and small pleural effusion. Heart/Mediastinum: Post-CABG and aortic valve replacement changes noted. Persistent cardiomegaly. Aortic arch calcification is present. Bones and soft tissues: Sternotomy wires in satisfactory alignment. External defibrillator electrodes noted Preliminary Report Dictated by Resident: Silviano Cano MD., have reviewed this study and agree with the above report. XR Chest 1 vw Result Date: 07/22/2024 1. No pneumothorax. 2. Increased pulmonary vascular congestion. 3. Increased bilateral pleural effusions, right greater than left. RL: 135 Chest 1 View Result Date: 07/20/2024 1. Distal tip of endotracheal tube measuring 8.8 cm from dante. Consider advancement by 3 cm and reimaging. 2. Mild bibasilar atelectasis and small left-sided pleural effusion. RL: [id number] AFC: [id number] END OF REPORT Abdomen XRay 1 View Result Date: 07/19/2024 FINDINGS/IMPRESSION: The tip of the gastric tube projects over the proximal gastric body and the side-port projects over the gastroesophageal junction. Slight further advancement is recommended. Chest tubes/mediastinal drains and a [place]-Dianelys catheter are partially seen. The visualized bowel loops are mildly distended with a nonobstructive pattern. Previous BUILDING MANAGER Services/Swallow History: Patient seen earlier on this date for clinical swallow evaluation. BUILDING MANAGER rec'd NPO and FEES. See previous BUILDING MANAGER note for further details. Past Medical History: Diagnosis Date BPH (benign prostatic hyperplasia) Erectile dysfunction GERD (gastroesophageal reflux disease) HTN (hypertension) Past Surgical History: Procedure Laterality Date AORTIC VALVE REPLACEMENT N/A 07/19/2024 Surgeon: Laura Sherman MD; [facility] ASCENDING AORTIC ANEURYSM REPAIR N/A 07/19/2024 Surgeon: Laura Sherman MD; Location[facility] CORONARY ARTERY BYPASS GRAFT N/A 07/19/2024 Surgeon: Laura Sherman MD; Location[facility] General Behavior: Alert, Calm, and Cooperative Hearing: WFL for speech Respiratory Status: high flow nasal cannula: 40L/min, 35% FiO2 Orientation/Cognition: - Patient oriented to: person, place, time, and situation - Response type: verbal - Follows 1-step commands: Yes Current Diet Texture/Means of Nutrition: NPO Oral Motor Exam Dentition and Oral Cavity: dentate, natural dentition, moist oral mucosa, and clean oral cavity Face within normal limits and symmetrical Jaw within normal limits and symmetrical Lips within normal limits and symmetrical Tongue within normal limits and midline on protrusion Palate within normal limits and symmetrical Vocal Quality dysphonic Speech clear/intelligible Volitional Cough Present, weak Videoendoscopic Exam With patient's consent, a 3.9 mm endoscope was passed transnasally via the right naris to obtain a superior view of the hypopharynx, larynx and trachea to assess swallowing physiology. Pre-Swallow Assessment / Anatomical Findings Nasopharyngeal structural/anatomical findings WFL Velopharyngeal function complete Pharyngeal/Laryngeal structural/anatomical findings ventricular sulcus Laryngeal function incomplete TVF adduction/glottic closure and appearance of posterior and medial glottic gap Diaz's Secretion Severity Scale 1 - Any secretions evident upon entry or following a dry swallow in the channels surrounding the laryngeal vestibule that were bilaterally represented or deeply pooled. Vegetative swallowing frequency within functional limits Patient was provided with PO trials of ice chips, thin liquid (0), nectar/mildly-thick liquid (2), puree (4), and regular solid (7) consistencies colored with blue/green dye. PO trials were administered by patient and BUILDING MANAGER. Results are as follows: Oral phase findings Oral containment WFL Mastication subjectively prolonged Oral clearance suspected piecemeal degultition Pharyngeal phase findings Initiation of swallow swallow onset with bolus in valleculae with puree (4) and regular solid (7) and swallow onset with bolus in pyriforms with thin liquid (0) and nectar/mildly-thick liquid (2) Tongue base retraction suspect decreased due to presence of residue on the tongue base and in the valleculae with thin liquid (0), puree (4), and regular solid (7) Pharyngeal constriction suspect decreased due to presence of residue in the pyriform sinus and along the posterior pharyngeal wall with thin liquid (0), puree (4), and regular solid (7) Epiglottic inversion appears to be incomplete Supraglottic/ Laryngeal vestibule closure suspect incomplete given presence of material in supraglottic and subglottic spaces after the swallow Pharyngoesophageal segment (PES) opening suspect impaired due to retrograde flow of material after swallow and suspect impaired due to residue atop the PES after the swallow Rosenbek's Penetration - Aspiration Scale (PAS) Ice chips 1 - material does not enter airway Thin liquid (IDDSI Level 0) 5 - enters the airway, contacts the vocal folds and is not ejected and 8 - enters the airway, passes below the vocal folds and no effort is made to eject [place]/Mildly-thick liquid (IDDSI Level 2) 1 - material does not enter airway Puree (IDDSI Level 4) 1 - material does not enter airway Chewable solid (IDDSI Level 7) 1 - material does not enter airway Other textures given: n/a NA - consistency not given Leder's Precious Residue Severity Rating Scale Vallecula 3 - Mild : 5-25% (Epiglottic ligament visible) with thin liquids and puree and 4 - Moderate : 25-50% (Epiglottic ligament covered) with chewable solid Pyriform Sinus 3 - Mild : 5-25% (Up wall to quarter full) with thin liquids, puree, and chewable solid Esophageal phase findings Retrograde flow observed with thin liquid Compensatory Strategies/ Techniques Bolus Modification - various bolus textures and sizes/amounts given as stated above Mode of Presentation - presented by spoon, cup, straw Liquid Wash - effective at reducing residue of chewable solid Pictures/Video from FEES exam: See [employer] Patient/Family Education: Provided verbally. Discussed findings of evaluation, recommendations and BUILDING MANAGER plan of care. Discussed risks of aspiration/dysphagia and possible associated complications including respiratory distress, respiratory infections (such as PNA), weight loss/difficulty meeting nutritional needs, possible need for mechanical ventilation, and even . Discussed recommendations for reducing risks of acquiring an aspiration-related respiratory infection including frequent, thorough oral hygiene care and maintaining good mobility as able. Educated about thickening liquids to recommended consistency. Discussed importance of frequent, thorough oral hygiene care. Discussed option for free water protocol and precautions for use. Educated about swallow precautions. Patient/family verbalized understanding and is in agreement with plan of care. RN and referring provider notified of findings and recommendations. Patient Family Goal: safe PO intake ASSESSMENT: Mayank Hurley presents with Diagnosis: mild oropharyngeal dysphagia Etiology of dysphagia: in the setting of complex medical condition/hospitalization and need for NIV/HFNC which causes constant positive pressure in the upper airway Dysphagia characterized by: with impairments in both airway protection and pharyngeal efficiency Notable anatomical findings: incomplete TVF adduction/glottic closure and appearance of posterior and medial glottic gap Oral phase findings: Note, the oral phase cannot be directly visualized during this exam; however, the following may be suspected/implied or known from previous assessment: slow and prolonged mastication and suspected piecemeal deglutition Pharyngeal phase findings: suspected reduced tongue base retraction, suspected impaired anterior hyoid excursion, suspected impaired superior laryngeal elevation, suspected impaired hyolaryngeal excursion, suspected impaired pharyngeal stripping wave, suspected incomplete epiglottic inversion, suspected incomplete laryngeal vestibular closure, and suspected impaired PES/UES opening Esophageal phase findings: Note, the esophageal phase cannot be directly visualized during this exam; however, the following may be suspected/implied or known from previous assessment: suspect impaired due to residue sitting atop the PES and retrograde flow through the PES Swallow efficiency: mild-moderate pharyngeal residue d/t the above suspected laryngeal impairments Swallow safety: deep penetration and 1 episode of trace aspiration of thin liquids (PAS 5, 8); although only 1 aspiration event was appreciated, suspect that there were other aspiration events that were not appreciated; posterior aspiration is difficult to visualize during this particular exam Effective compensatory strategies: reduced pharyngeal residue within vallecula of chewable solid Risk for aspiration: yes Factors increasing risk for aspiration-related respiratory complication such as pneumonia: reduced mobility, tenuous respiratory status, and subjective dystussia/impaired cough strength Risk for malnutrition/dehydration or not meeting nutritional needs: unknown Additional comments: Patient appears grossly safe to initiate po diet with adherence to swallow precautions, texture modifications, and close monitoring. *Note: this exam cannot definitively rule out flash penetration or aspiration during the swallow due to a whiteout period at the height of the swallow. Impressions: mild oropharyngeal dysphagia; deep penetration and aspiration of thin liquids (PAS 5, 8); mild-moderate pharyngeal residue; retrograde flow visualized Prognosis is favorable for safe po intake with adherence to texture modifications, adherence to swallow precautions, and close monitoring due to above findings. PLAN/RECOMMENDATIONS: Diet: Recommend patient initiate a soft and bite sized (IDDSI level 6)-textured diet with mildly thick/nectar-liquids (IDDSI level 2) - To thicken liquids to nectar/mildly thick consistency, mix 1 pack of ThickenUp Clear per 4 oz of liquids. Pour powder into an empty, dry cup first. Then, pour liquid on top and mix well with a spoon. Let rest for a couple minutes, stirring intermittently. Do not add ice to thickened beverages. Soups and cereals must be thickened as well. Liquids on meal tray will be pre-thickened. *Popsicles, jello, ice cream, sherbet, slovenian ice, milkshakes, and slushies are thin liquids and should not be given* Precautions: - Swallow Precautions: sit fully upright/in chair, alternate bites/sips, remain upright after PO intake, and slow rate of intake - Recommend elevated head of bed and frequent, thorough oral hygiene care due to known risk for aspiration. - Recommend patient be closely monitored for s/sx of aspiration or signs of a developing respiratory infection or worsening respiratory status (i.e. throat clearing/coughing with po, wet/gurgled voice, fever spikes 30-60 mins after meals, increased chest congestion, leukocytosis, increased O2 requirements, etc.). If observed or suspected, recommend pt be made NPO pending BUILDING MANAGER re-assessment. - Recommend free water protocol (small amounts of unthickened water/ice chips only - NO FLAVORING) PRN for QOL, despite aspiration risks, with strict adherence to the following precaution: Oral hygiene/care must be completed prior to water/ice intake. Additional Referrals: - None evident at this time. Continued BUILDING MANAGER services while in-house: Recommend BUILDING MANAGER therapy 2-5x/wk for 15-45 min/session while in-house to address the following goals: Swallowing: - Patient will tolerate the safest, least restricted po diet texture without overt s/sx of aspiration or other negative effects on medical condition - Patient/family/staff will verbalize precautions for and demonstrate compliance with free water protocol with min cues - Patient will complete base of tongue, strap muscle, and airway protection exercises with minimal cues 80% of the time Discharge Recommendations: - TBD pending ongoing work-up/progress made while in-house. Note: the following are rare but potential complications of ingestion of blue dye/food coloring, and it is recommended that patient be monitored for any adverse reactions: blue discoloration of skin, urine, feces or serum; refractory hypotension or metabolic acidosis. Geri Corley MA, [facility]-BUILDING MANAGER Speech-Language Pathologist Office [phone] Pager: [phone] [facility] 2024-07-29 11:53:00 Associated Order(s): CONSULT INFECTIOUS DISEASE INFECTIOUS DISEASES CONSULT NOTE Date of Service: 07/29/2024 11:53 Patient Name: Mayank Hurley Consultation requested by: Laura Sherman MD Reason for Consult: urine culture positive for pseudomonas in pt with BPH and chronic indwelling bella, also being treated for possible sepsis with meropenem and vanc, positive blood cultures that may have had contamination, we are repeating Subjective History of Present Illness: Mayank Hurley is a 79 year old male with 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 Pt with extensive intrathoracic surgery 07/19 as outlined above which went well initially. Pt had a respiratory decompensation 07/26 with acidosis from CO2 retention seemingly due to volume overload post op and complicated by his renal failure. The patient required brief intubation and later chest tubes for b/l pleural effusions related to his volume overload but he garcia since recovered and is on HFNC. He is not longer on pressor support as of this AM. During his decompensation- the patient was avila-cultured with blood cxs growing CONS in 1/2 sets and PsA in his urine. The patient denies any current f/c, n/v/d, abdominal pain, or other new pains. The patient still makes urine despite being on HD, and has had a bella in place for 10d. It is not uncomfortable to the patient as he is accustomed to having one chronically. Past Histories: Patient has a past medical history of BPH (benign prostatic hyperplasia), Erectile dysfunction, GERD (gastroesophageal reflux disease), and HTN (hypertension). Patient has a past surgical history that includes aortic valve replacement (N/A, 07/19/2024); coronary artery bypass graft (N/A, 07/19/2024); and ascending aortic aneurysm repair (N/A, 07/19/2024). Patient reports that he has never smoked. He has never used smokeless tobacco. He reports current alcohol use of about 8.3 - 16.7 standard drinks of alcohol per week. He reports that he does not use drugs. Patient family history is not on file. ? Current Facility-Administered Medications: [START ON 07/30/2024] tamsulosin (FLOMAX) capsule 0.4 mg, 0.4 mg, Oral, DAILY, Norma March MD furosemide (LASIX) injection 20 mg, 20 mg, Slow IV Push, Q6HPRN, Leisa Mello DO lactated ringers IV infusion 1,000 mL, 1,000 mL, IV Infusion, CONTINUOUS, Leisa Mello DO, Last Rate: 50 mL/hr at 07/28/24 1826, 1,000 mL at 07/28/24 1826 levothyroxine (SYNTHROID) injection 19 mcg, 19 mcg, Intravenous, QAM-0600, Leisa Mello DO, 19 mcg at 07/29/24 0614 metoprolol (LOPRESSOR) injection 2.5 mg, 2.5 mg, Intravenous, PRN - SEE INSTRUCTIONS, Leisa Mello DO NaCl 0.9% (NS) IV infusion 1,000 mL, 1,000 mL, CRRT Circuit, CONTINUOUS, [place] Reinoso MD, Stopped at 07/28/24 1400 NORepinephrine (LEVOPHED) 4 mg/250 mL in 0.9% NaCl infusion, 0.05-0.5 mcg/kg/min, IV Infusion, TITRATE, Leisa Mello DO, Last Rate: 12.49 mL/hr at 07/28/24 2150, 0.03 mcg/kg/min at 07/28/24 2150 CRRT fluid dialysate (PRISMASOL 2K) K 2.0, CA 3.5, MG 1, HCO3 32, NA 140, CL 111.5, LACTATE 3, DEX 100, OSM 296, 2,800 mL/hr, CRRT Circuit, CONTINUOUS, [place] Reinoso MD, Stopped at 07/28/24 1400 meropenem (MERREM) 500 mg in NaCl 0.9% (NS) 100 mL MINI-BAG, 500 mg, IV Piggyback, Q24H ABX, Andie Zayas MD, Stopped at 07/29/24 0459 metoprolol tartrate (LOPRESSOR) tablet 12.5 mg, 12.5 mg, Oral, BID, Fabian Chappell MD, 12.5 mg at 07/27/241950 pantoprazole (PROTONIX) injection 40 mg, 40 mg, Slow IV Push, Q24H, Fabian Chappell MD, 40 mg at 07/28/24 1352 vancomycin placeholder: dosing by pharmacy, , Intravenous, RX Placeholder, Andie Zayas MD clopidogreL (PLAVIX) 75 mg tablet 75 mg, 75 mg, Oral, DAILY, Fabian Chappell MD heparin 1,000 unit/mL (10 mL) - dialysis catheter care, 2,000 Units, Slow IV Push, PRN - SEE INSTRUCTIONS, [place] Reinoso MD, 3,600 Units at 07/25/24 1832 acetaminophen (TYLENOL) tablet 650 mg, 650 mg, Oral, Q6HPRN, Too Chávez, , 650 mg at 07/27/24 1950 acetaminophen-codeine (TYLENOL #3) 300-30 mg tablet 1 tablet, 1 tablet, Oral, Q6HPRN, Fabian Chappell MD aspirin chewable tablet 81 mg, 81 mg, Oral, DAILY, Too Chávez DO, 81 mg at 07/26/24 0837 atorvastatin (LIPITOR) tablet 40 mg, 40 mg, Oral, QHS, Too Chávez, , 40 mg at 07/27/24 1950 bisacodyL (DULCOLAX) suppository 10 mg, 10 mg, Rectal, PRN - SEE INSTRUCTIONS, Too Chávez DO dextrose 50 % in water (D50W) injection 25 mL, 25 mL, Slow IV Push, PRN, Too Chávez, glucagon HCL injection 1 mg, 1 mg, Intramuscular, PRN, Too Chávez DO ondansetron (ZOFRAN (PF)) injection 4 mg, 4 mg, Slow IV Push, Q6HPRN, Too Chávez, sennosides-docusate sodium (SENOKOT-S) 8.6-50 mg per tablet 1 tablet, 1 tablet, Oral, BID, Too Chávez DO, 1 tablet at 07/28/24 0821 Sliding Scale Insulin - Lispro (HumaLOG), , Subcutaneous, TID MEALS+HS, Too Chávez DO, 1 Units at 07/23/24 2000 midodrine (PROAMATINE) tablet 10 mg, 10 mg, Oral, TID, Nehal Rocha MD, 10 mg at 07/28/24 0821 ? Allergies: is allergic to adhesive, diltiazem, and keflex [cephalexin]. Objective Physical Examination: Vitals: 07/29/24 0800 07/29/24 0900 07/29/24 1000 07/29/24 1100 BP: Pulse: 96 88 86 76 Resp: Temp: TempSrc: Tympanic SpO2: 93% 96% 94% 95% Weight: Height: General: nad HEENT: eomi, mmm Cardio: irregular rate Resp: course breathing on HFNC, b/l chest tubes with serosanguinous drainage in atria GI: abd soft, nd, nttp MSK: ngd Ext: no edema Skin: R chest HD cath nttp with faint erythema surrounding and excoriations, sternotomy wound healing well and without erythema or drainage Neuro: no obvious deficits Psych: alert & cooperative Antimicrobial Hx: Current: vancomycin 07/27- ,meropenem 07/27- Previous: periop abxs 07/19 Labs: (most recent, double check dates): Chemistry 07/29/2024 CBC 07/29/2024 LFTs 07/28/2024 Infl Mrks - 136 105 32 (H) 82 8.97 7.4 (L) 234 AST 61 (H) ALT 79 (H) ESR - 4.3 21 (L) 2.68 (H) 22.1 (L) AlkP 56 T Gaurav 0.9 CRP - Ca 7.8 (L) Mg 2.2 ANC 7.41 (H) EOS 0.45 Prot 5.0 (L) Alb 2.6 (L) PrCal 0.46 (H) Microbiology: Susceptibility data from last 90 days. Collected Specimen Info Organism Cefepime Ciprofloxacin Levofloxacin Piperacillin/Tazobactam Tobramycin Trimethoprim/Sulfamethoxazole 07/26/24 Urine from URINE, CLEAN CATCH Pseudomonas aeruginosa S S S S S 07/09/24 Urine from URINE, CATHETERIZED Stenotrophomonas maltophilia S 07/01/24 Urine from URINE, CATHETERIZED Pseudomonas aeruginosa S S S S S 05/14/24 Urine from URINE, CATHETERIZED Pseudomonas aeruginosa S S S S S Relevant Radiology: reviewed Assessment & Plan CONS in 1/2 Blood Cxs, suspect contamination PsA Colonization in bella catheter Post-op volume overload related to ESRD Pt with CABG/AVR/aortic aneurysm repair 07/19 Post-op respiratory decompensation 2/2 volume overload requiring BIPAP and MV temporarily - now resolved Blood cxs and urine cxs collected during decompensation Urine cx collected from bella - growing PsA, likely reflects tube colonization and asymptomatic bacteruria: would avoid treatment Previously urine cxs grew stenotrophomonas in May which is reflective on extensive carbapenem exposure - meaning the patient is expected to be colonized with healthcare associated bacteria and antimicrobial stewardship is vitally important Blood cxs with 2spp of CONS (hominis/epidermidis) from 1/2 blood cxs sets- also highly likely this is contaminant- however this is of greater concern given his comorbidities ~90d old HD cath, extensive intrathoracic surgery recently including aortic valve replacement- is this is considered contaminant incorrectly, the potential complications are vast Overall feel that continuing vancomycin in the short term while awaiting rpt blood cxs which were collected 07/28 has the greatest benefit to risk ratio Complicating Conditions: ESRD on Dialysis TTS BPH HFpEF Acute Hypercapnic Respiratory Failure Recommendation summary: C/w Vancomycin, dosed per pharm D/c meropenem F/u blood cxs from 07/28 HD and diuresis per primary/nephro for volume overload If additional chest tubes are placed or revised, please send for LDH, protein, cell count w/ diff and bacterial cxs Pt discussed with ID faculty. Owen Medrano M.D. Division of Infectious Diseases Chief Fellow, PGY-5 ENT SAFETY OFFICER Associated attestation - Shivam Holcomb MD - 07/29/2024 9:27 PM PATIENT SAFETY OFFICER I personally examined the patient on 07/29/[address] Medrano's fellow note as written. Considering that the CONS blood culture is from one set, and with 2 different species (S. epidermidis and S. Hominis), this is likely a contaminant. That said, with a recent valve replacement, and clinical status that has necessitated numerous lines - risk factors for CONS bacteremia - we recommend continuing vancomycin until more information is obtained from repeat blood cultures. The Pseudomonas from the Bella catheter most likely represents a colonizer of the indwelling catheter. Meropenem can therefore be stopped. I actively participated in the decision-making process. Please see the fellow's note for additional details. [facility] 2024-07-29 10:55:06 Associated Order(s): CONSULT SPEECH (DYSPHAGIA); CONSULT SPEECH (DYSPHAGIA) Speech-Language Pathology Clinical Swallow Evaluation 07/29/2024 Mayank Hurley : 1945 Age/Sex: 79 year old male Time IN/OUT: 6900-8908 Referring Physician: Shawn March S Date of Referral: 07/29/2024; 07/28/24 Reason for Referral: dysphagia Date of Admission/Onset: 07/26/24 SUBJECTIVE: Patient awake/alert, agreeable to evaluation. Patient denies dysphagia. at bedside. OBJECTIVE: is being seen for a clinical swallow evaluation. Per HPI, "Mayank Hurley is a 79 year old with PMH ESRD secondary to BPH (HD T//Mon), chronic indwelling bella, CAD, HFrEF (LVEF 35-40% on TTE 05/2024) who was previously admitted to the SICU after AVR, CABG x 2, and ascending aortic aneurysm repair on 07/19/[address] Sherman. The patient progressed well, and was transferred to the floor on 07/24. Yesterday, the patient had a worsening acidosis with significant carbon dioxide retention. Patient transferred to the ICU for respiratory support, neuro-monitoring, and a higher level of care." See chart for further details. Pertinent Imaging: XR Chest 1 vw Result Date: 07/29/2024 Grossly unchanged size of small right and moderate left pleural effusions. Bilateral chest tubes in place. I, Carrie Foss MD., have reviewed this study and agree with the above report. CT Head wo contrast Result Date: 07/27/2024 Redemonstrated acute to subacute infarcts in the right occipital lobe and right cerebellar hemisphere. No evidence of hemorrhagic transformation. MR Brain wo contrast Result Date: 07/26/2024 Incomplete study. Acute to subacute infarctions of the right occipital lobe, right cerebellum and right parasagittal frontal lobe. Preliminary Report Dictated by Resident: Ivania Dominguez MD., have reviewed this study and agree with the above report. CT Thorax wo contrast Result Date: 07/26/2024 1. Status post recent aortic valve replacement and ascending thoracic aortic graft placement. Moderate volume of fluid distending pericardial recesses, small pericardial effusion, and moderate retrosternal seroma/hematoma. 2. Large joint effusions. 3. Complete atelectasis of lower lobes. End of report. 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 Severe attenuation/near occlusion of the P2 segment of the right posterior cerebral artery. Developmentally hypoplastic right vertebral artery with poor visualization of the V4 segment which may be severely hypoplastic or occluded. Moderate to large bilateral pleural effusions. 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 Severe attenuation/near occlusion of the P2 segment of the right posterior cerebral artery. Developmentally hypoplastic right vertebral artery with poor visualization of the V4 segment which may be severely hypoplastic or occluded. Moderate to large bilateral pleural effusions. Chest 2 Views - Upright ( PA, LAT) on POD # 3 Result Date: 07/25/2024 Bilateral moderate pleural effusions with compressive atelectasis or consolidation. Carrie Patel MD., have reviewed this study and agree with the above report. XR Chest 1 vw Result Date: 07/23/2024 FINDINGS/IMPRESSION: Interval removal of the endotracheal and enteric tubes. The left IJ [place] catheter tip projects over the pulmonary outflow tract. Right central line tip terminates at the level of distal SVC. Left chest tube tip projects over the left costophrenic angle. 2 drains tips overlie the left upper and left lower mediastinum. Pacer wires are noted. Lungs: The lung volumes are normal. Interval development of the hazy airspace opacities of the right mid lung that can be seen with aspiration/infection or atelectasis. Correlate clinically. Mild left basilar atelectasis and small pleural effusion. Heart/Mediastinum: Post-CABG and aortic valve replacement changes noted. Persistent cardiomegaly. Aortic arch calcification is present. Bones and soft tissues: Sternotomy wires in satisfactory alignment. External defibrillator electrodes noted Preliminary Report Dictated by Resident: India Mckeon I, Silviano Reynoso MD., have reviewed this study and agree with the above report. XR Chest 1 vw Result Date: 07/22/2024 1. No pneumothorax. 2. Increased pulmonary vascular congestion. 3. Increased bilateral pleural effusions, right greater than left. RL: 135 Chest 1 View Result Date: 07/20/2024 1. Distal tip of endotracheal tube measuring 8.8 cm from dante. Consider advancement by 3 cm and reimaging. 2. Mild bibasilar atelectasis and small left-sided pleural effusion. RL: [id number] AFC: [id number] END OF REPORT Abdomen XRay 1 View Result Date: 07/19/2024 FINDINGS/IMPRESSION: The tip of the gastric tube projects over the proximal gastric body and the side-port projects over the gastroesophageal junction. Slight further advancement is recommended. Chest tubes/mediastinal drains and a [place]ian[place]s catheter are partially seen. The visualized bowel loops are mildly distended with a nonobstructive pattern. Previous BUILDING MANAGER Services/Swallow History: None documented. Past Medical History: Diagnosis Date BPH (benign prostatic hyperplasia) Erectile dysfunction GERD (gastroesophageal reflux disease) HTN (hypertension) Past Surgical History: Procedure Laterality Date AORTIC VALVE REPLACEMENT N/A 07/19/2024 Surgeon: Laura Sherman MD; Location: [facility] LOC[facility] ASCENDING AORTIC ANEURYSM REPAIR N/A 07/19/2024 Surgeon: Laura Sherman MD; [facility] CORONARY ARTERY BYPASS GRAFT N/A 07/19/2024 Surgeon: Laura Sherman MD; Location: [facility] General Behavior: Alert, Calm, and Cooperative Hearing: WFL for speech Respiratory Status: high flow nasal cannula: 40L/min, 35% FiO2 Orientation/Cognition: - Patient oriented to: person, place, time, and situation - Response type: verbal - Follows 1-step commands: Yes Current Diet Texture/Means of Nutrition: NPO Oral Motor Exam Dentition and Oral Cavity: dentate, natural dentition, moist oral mucosa, and clean oral cavity Face within normal limits and symmetrical Jaw within normal limits and symmetrical Lips within normal limits and symmetrical Tongue within normal limits and midline on protrusion Palate within normal limits and symmetrical Vocal Quality dysphonic Speech clear/intelligible CLINICAL SWALLOW EVALUATION Swallows on command: Yes Handles Secretions: Yes Volitional Cough: Did not test Spontaneous Cough: No PO trials were administered by patient. Patient was provided with multiple bites/sips of thin liquid (0), pudding (4), and regular solid (7) consistencies with the following observations: Oral Stage Anterior leakage of bolus not observed Pocketing of bolus not observed Subjectively prolonged oral phase not observed Oral residue not observed Mastication WNL Pharyngeal Stage Subjectively reduced laryngeal elevation not observed Coughing or throat clearing not observed Change in voice quality not observed Multiple swallows subjectively not observed Respiratory sufficiency and coordination WFL - no increased work of breathing and/or oxygen sats and respiratory rate remained stable Report of globus sensation does not report 3 oz water challenge passed Patient/Family/Staff education: Provided verbally. Discussed findings of evaluation, recommendations and BUILDING MANAGER plan of care. Discussed recommendation/option for instrumental swallow assessment. Discussed risks of aspiration/dysphagia and possible associated complications including respiratory distress, respiratory infections (such as PNA), weight loss/difficulty meeting nutritional needs, possible need for mechanical ventilation, and even . Patient/family verbalized understanding and is in agreement with plan of care. RN and referring provider notified of findings and recommendations. Patient/Family goal: safe PO intake ASSESSMENT/IMPRESSIONS: Mayank Santiago Guerline presents with: Diagnosis: possible oropharyngeal dysphagia Etiology of suspected dysphagia/Risk factors for dysphagia: complex medical condition/hospitalization and need for NIV/HFNC which causes constant positive pressure in the upper airway Observations/Complaints: no overt s/sx of aspiration, dysphonia which raises concern for incomplete glottic closure, no signs of discomfort or distress, and functional oral stage Factors raising concern for aspiration or pharyngeal dysphagia: need for supplemental oxygen Suspected risk for aspiration: yes Factors increasing risk for aspiration-related respiratory complication such as pneumonia: tenuous respiratory status Risk for malnutrition/dehydration or not meeting nutritional needs: unknown Additional comments: Although overt s/sx of aspiration were not observed, patient is at high risk for aspiration given the above. An objective/instrumental swallow assessment (i.e. MBS/FEES) is indicated to r/o aspiration, evaluate oropharyngeal swallow physiology, determine the safest and least restrictive consistency for po intake, and determine need for further dysphagia interventions. *Note: aspiration cannot be ruled out nor confirmed without instrumental assessment/imaging. Prognosis: pending instrumental assessment for safe po intake due to above findings. RECOMMENDATIONS/GOALS: Diet: Recommend patient remain NPO until instrumental evaluation (i.e. MBS/FEES) is completed. Precautions: - Recommend elevated head of bed and frequent, thorough oral hygiene care due to possible risk for aspiration. Instrumental Swallow Assessment: yes - Recommend medical team place order for flexible endoscopic evaluation of swallowing (FEES) to rule out aspiration, further assess swallowing physiology, and determine safety for PO intake. - To place order, please re-consult Speech, and in comments section write: "FEES." Additional Referrals: - None evident at this time. Continued BUILDING MANAGER services: BUILDING MANAGER will f/u with patient for FEES and will make further recs as indicated at that time. Discharge Recommendations: - TBD pending ongoing work-up/progress made while in-house. Geri Corley MA, [facility]-BUILDING MANAGER Speech-Language Pathologist Office [phone] Pager: [phone] [facility] 2024-07-26 22:23:15 Associated Order(s): CONSULT ADULT CRITICAL CARE SICU CONSULT NOTE Date of Service: 07/26/2024 22:23 Admitting Service: Cardiothoracic Surgery Monitoring/Support: airway monitoring and hemodynamic monitoring HPI Mayank Hurley is a 79 year old with PMH ESRD secondary to BPH (HD //Mon), chronic indwelling bella, CAD, HFrEF (LVEF 35-40% on TTE 05/2024) who was previously admitted to the SICU after AVR, CABG x 2, and ascending aortic aneurysm repair on 07/19/[address] Sherman. The patient progressed well, and was transferred to the floor on 2/19. Today, the patient had a worsening acidosis this afternoon with significant carbon dioxide retention. Patient transferred to the ICU for respiratory support, neuro-monitoring, and a higher level of care. History Past Medical History: Diagnosis Date BPH (benign prostatic hyperplasia) Erectile dysfunction GERD (gastroesophageal reflux disease) HTN (hypertension) Past Surgical History: Procedure Laterality Date AORTIC VALVE REPLACEMENT N/A 07/19/2024 Surgeon: Laura Sherman MD; [facility]: [facility] LOC[facility] ASCENDING AORTIC ANEURYSM REPAIR N/A 07/19/2024 Surgeon: Laura Sherman MD; Location: [facility] CORONARY ARTERY BYPASS GRAFT N/A 07/19/2024 Surgeon: Laura Sherman MD; [facility] Social History Socioeconomic History Marital status: Tobacco Use Smoking status: Never Smokeless tobacco: Never Substance and Sexual Activity Alcohol use: Yes Alcohol/week: 8.3 - 16.7 standard drinks of alcohol Types: 10 - 20 drink(s) per week Comment: daily Drug use: No Social Determinants of Health Financial Resource Strain: Low Risk (07/13/2024) Overall Financial Resource Strain (CARDIA) Difficulty of Paying Living Expenses: Not hard at all Food Insecurity: No Food Insecurity (07/22/2024) NCSS - Food Insecurity Worried About Running Out of Food in the Last Year: No Ran Out of Food in the Last Year: No Transportation Needs: No Transportation Needs (07/22/2024) NCSS - Transportation Lack of Transportation: No Physical Activity: Insufficiently Active (07/13/2024) Exercise Vital Sign Days of Exercise per Week: 1 day Minutes of Exercise per Session: 10 min Stress: No Stress Concern Present (07/13/2024) [employer] - Occupational Stress Questionnaire Feeling of Stress : Only a little Social Connections: Socially Integrated (07/13/2024) Social Connection and Isolation Panel [NHANES] Frequency of Communication with Friends and Family: More than three times a week Frequency of Social Gatherings with Friends and Family: Twice a week Attends Cheondoism Services: 1 to 4 times per year Active Member of Clubs or Organizations: Yes Attends Club or Organization Meetings: 1 to 4 times per year Marital Status: Housing Stability: Not At Risk (07/22/2024) NCSS - Housing/Utilities Has Housing: Yes Worried About Losing Housing: No Unable to Get Utilities: No Allergies Allergies Allergen Reactions Diltiazem Rash Keflex [Cephalexin] Rash Physical Exam Temp: [36.4 ?C (97.6 ?F)-38.2 ?C (100.7 ?F)] Heart Rate (monitor): [111] Pulse: [92-106] Resp: [18-24] BP: (97-117)/(53-75) MAP (mmHg): [70-88] General: resting and in no acute distress. Appears confused Neuro: Patient responds to voice but appears to be staring in the distance. Left hand tremor. Lungs: clear to auscultation bilaterally Cardio: regular rate and rhythm Abdomen: soft; non-tender; non-distended; normoactive bowel sounds Extremities: no clubbing, cyanosis, or edema Labs: New laboratory studies were independently reviewed and were notable for the following: Leukocytosis with left shift Normocytic anemia, stable Respiratory acidosis with pH of 7.15 and pCO2 of 74 Hyponatremia, improved from yesterday Hyperkalemia of 5.3, up from 4.5 yesterday CKD with elevated creatinine and BUN Urinalysis with protein, leukocyte esterase, WBC, and bacteria concerning for UTI. Assessment & Plan Mayank Hurley is a 79 year old male s/p with PMH ESRD secondary to BPH (HD //Mon), chronic indwelling bella, CAD, HFrEF (LVEF 35-40% on TTE 05/2024) who was previously admitted to the SICU after AVR, CABG x 2, and ascending aortic aneurysm repair on 07/19/[address] Sherman. The patient progressed well, and was transferred to the floor on 07/24. Brain MRI completed on 07/26 due to vision changes, was notable for new ischemic changes in the right occipital lobe, right cerebellum, and right parasagittal frontal lobe. Today, the patient had a worsening acidosis this afternoon with significant carbon dioxide retention. Patient transferred to the ICU for respiratory support, neuro-monitoring, and a higher level of care. Upon arrival to the SICU, the patient appears altered, but responds to voice. BiPAP started to help remove CO2. Airway: - [employer], patent Neurology: - Pain: Multimodal pain control Cardiovascular: - MAPS: >65 - Pressors: None Pulmonary: - O2 per protocol - BiPAP - ABG PRN Gastrointestinal: - Diet: NPO while on BiPAP - Bowel Regimen: Senokot - GI PPX: 40 mg pantoprazole QD Renal/Electrolytes: - Monitor electrolytes and replace as needed - Hyperkalemia, will shift and monitor - HD scheduled tomorrow, Nephrology on board, appreciate recommendations Endocrinology: - Sliding scale insulin Infectious Disease: Leukocytosis with left shift. - WBC: 11.98 - ABX: None at this time Hematology: - 7.8 - Transfuse Hgb <7 DVT Prophylaxis: - 5000 units heparin BID Dispo: SICU Andie Zayas MD General Surgery, PGY-2 07/26/2024 22:23 ENT SAFETY OFFICER Associated attestation - Tay Heaton MD - 07/27/2024 9:46 AM PATIENT SAFETY OFFICER Mayank Hurley is an 79 year old male who underwent coronary artery bypass grafting x 2 and aortic valve replacement on 07/19/2024. He is transferred back to the surgical intensive care unit for worsening respiratory acidosis. Chest CT shows significant bilateral pleural effusions and atelectasis. We will start BiPap tonight and reassess need for pigtail chest thoracostomy in the morning. I spent 35 minute(s) on date 07/26/2024 personally caring for this critically ill patient on the unit/floor. The patient was critically ill due to respiratory failure and had acute impairment of one or more vital organ systems including the respiratory systems such that there is a high probability of imminent or life-threatening deterioration of the patient s condition without close monitoring and adjustments. I performed the following services: direct hands-on care of the patient, discussed the patient's care with other medical staff, reviewed imaging studies and reviewed test results, and interpretation of physiologic parameters. I agree with Dr. Zayas's resident note as written . I actively participated in the decision-making process. Please see the resident's note for additional details. [facility] 2024-07-25 14:53:03 Associated Order(s): CONSULT NEUROLOGY STROKE SERVICE CONSULT DATE OF SERVICE: 07/25/2024 16:07 CHIEF COMPLAINT: Vision changes HISTORY OF PRESENT ILLNESS Mayank Hurley is a 79 year old right handed male with PMH of BPH (benign prostatic hyperplasia), ESRD on HD TTS, Erectile dysfunction, GERD (gastroesophageal reflux disease), and HTN (hypertension). Underwent CABGx2 on 07/19/24 for AV, ascending aortic aneurysm repair . Neurology consulted for vision changes. Patient mentions he has been seeing a "black hole" in the lower left quadrant of his visual field. He noticed it a day after his surgery. Patient mentions that has been almost constant and somewhat improving since yesterday. He is able to read and watch TV but the blurriness in the lower quadrant is getting more prominent now. Of note, He has been complaining of squiggly lines coming and going from his vision previously, but that has been a chronic issue. Patient was off aspirin for 6 days prior to his surgery on 07/19/24. Patient denies any other focal weakness, dyspnea, headache, dizziness or trouble speaking. Per at bedside, she has noticed him having trouble picking up food while eating and also unable to watch TV clearly. Denies any history of prior strokes or seizures or head trauma. Does have history of bilateral cataracts and reported AMD, and uses prescription glasses for reading.. Antiplatelets: ASA 81 mg ; Lipitor 40 mg daily Anticoagulants: none Tobacco abuse: No Alcohol abuse: Yes ; 2 beers a day ; left in April Drug abuse: No Previous stroke: No STROKE DOCUMENTATION Stroke Activation - Date: (not recorded) Stroke Activation - Time: (not recorded) Physician arrival at bedside - Date: (not recorded) Physician arrival at bedside - Time: (not recorded) CT-Head without contrast read by Neurology: (not recorded) Last seen normal: Last known well - Date: (not recorded) Last known well - Time: (not recorded) Wake up stroke: No NIH STROKE SCALE NIHSS TOTAL: 1 NIHSS Interval: Admission LOC: 0 Alert: Keenly Responsive LOC QUESTIONS: 0 Answers Both Questions Correctly LOC COMMANDS: 0 Performs Both Tasks Correctly BEST GAZE: 0 Normal VISUAL: 1 Partial Hemianopia FACIAL PALSY: 0 Normal MOTOR ARM-LEFT: 0 No Drift MOTOR ARM-RIGHT: 0 No Drift MOTOR LEG-LEFT: 0 No Drift MOTOR LEG-RIGHT: 0 No Drift LIMB ATAXIA: 0 Absent SENSORY: 0 Normal BEST LANGUAGE: 0 No Aphasia DYSARTHRIA: 0 Normal EXTINCTION AND INATTENTION (FORMERLY NEGLECT): 0 No Abnormalty Dysphagia Screen: IV Thrombolytic Therapy: Was IV thrombolytic given?: no Reason why thrombolytic not given: Thrombolytic therapy not given due to NIHSS = 0 (zero) or rapid improvement to baseline If IV thrombolytic was indicated and given as a standard of care was the patient/family informed of benefits of treatment and risk such as hemorrhage and/or angioedema?: N/A If IV Tenecteplase was indicated and given as standard of care, was the patient/family informed of the nature of patient s diagnosis, medically indicated, evidence-based treatment options including the immediate use of intravenous thrombolytic Tenecteplase (TNK) for the non-FDA approved indication of Acute Ischemic Stroke (AIS) treatment? N/A Patient/family was advised of the risks of this treatment, the likelihood of achieving the patient s goals, and had the opportunity to address any questions. The [place] [employer]/[place] [employer] AIS guidelines recognize TNK as a non-inferior alternative to the FDA-approved use of alteplase for AIS treatment with similar risks/benefits/alternatives: N/A Was there a delay in door to IV thrombolytic over 30 minutes?: N/A ICH/SAH Endovascular Intervention: PRE- ADMISSION MODIFIED SUNDAY SCORE 1 - No significant disability despite symptoms; able to carry out all usual duties and activities PAST MEDICAL HISTORY Past Medical History: Diagnosis Date BPH (benign prostatic hyperplasia) Erectile dysfunction GERD (gastroesophageal reflux disease) HTN (hypertension) PAST SURGICAL HISTORY Past Surgical History: Procedure Laterality Date AORTIC VALVE REPLACEMENT N/A 07/19/2024 Surgeon: Laura Sherman MD; [facility] ASCENDING AORTIC ANEURYSM REPAIR N/A 07/19/2024 Surgeon: Laura Sherman MD; [facility] CORONARY ARTERY BYPASS GRAFT N/A 07/19/2024 Surgeon: Laura Sherman MD; [facility] FAMILY HISTORY Family History Problem Relation Age of Onset No Significant Medical Problems NoFHx SOCIAL HISTORY Social History Socioeconomic History Marital status: Tobacco Use Smoking status: Never Smokeless tobacco: Never Substance and Sexual Activity Alcohol use: Yes Alcohol/week: 8.3 - 16.7 standard drinks of alcohol Types: 10 - 20 drink(s) per week Comment: daily Drug use: No Social Determinants of Health Financial Resource Strain: Low Risk (07/13/2024) Overall Financial Resource Strain (CARDIA) Difficulty of Paying Living Expenses: Not hard at all Food Insecurity: No Food Insecurity (07/22/2024) NCSS - Food Insecurity Worried About Running Out of Food in the Last Year: No Ran Out of Food in the Last Year: No Transportation Needs: No Transportation Needs (07/22/2024) NCSS - Transportation Lack of Transportation: No Physical Activity: Insufficiently Active (07/13/2024) Exercise Vital Sign Days of Exercise per Week: 1 day Minutes of Exercise per Session: 10 min Stress: No Stress Concern Present (07/13/2024) [employer] - Occupational Stress Questionnaire Feeling of Stress : Only a little Social Connections: Socially Integrated (07/13/2024) Social Connection and Isolation Panel [NHANES] Frequency of Communication with Friends and Family: More than three times a week Frequency of Social Gatherings with Friends and Family: Twice a week Attends Cheondoism Services: 1 to 4 times per year Active Member of Clubs or Organizations: Yes Attends Club or Organization Meetings: 1 to 4 times per year Marital Status: Housing Stability: Not At Risk (07/22/2024) NCSS - Housing/Utilities Has Housing: Yes Worried About Losing Housing: No Unable to Get Utilities: No Reviewed patient's family, surgical and social hx. HOME MEDICATIONS Medications Prior to Admission Medication Sig Dispense Refill Last Dose magnesium oxide 400 mg magnesium capsule Take 1 capsule by mouth in the morning. sulfamethoxazole-trimethoprim (BACTRIM DS) 800-160 mg per tablet Take 1 tablet by mouth in the morning and 1 tablet in the evening. 10 tablet 0 vitamin b complex-vitamin c-folic acid (OLIVER-NEMESIO) 0.8 mg tablet Take 1 tablet by mouth in the morning. aspirin 81 mg chewable tablet Take 1 tablet by mouth in the morning. 180 tablet 1 last dose 2-9-25 atorvastatin 40 mg tablet Take 1 tablet by mouth at bedtime. 90 tablet 0 Taking carvediloL 3.125 mg tablet Take 1 tablet by mouth in the morning and 1 tablet in the evening. Take with meals. 30 tablet 1 Taking levothyroxine 25 mcg tablet Take 1 tablet by mouth every morning. 30 tablet 0 Taking pantoprazole 40 mg EC tablet Take 1 tablet by mouth in the morning. 30 tablet 0 Taking sevelamer 800 mg tablet Take 1 tablet by mouth in the morning and 1 tablet at noon and 1 tablet in the evening. Take with meals. 90 tablet 1 Taking tamsulosin 0.4 mg 24 hr capsule Take 1 capsule by mouth in the morning. 30 capsule 0 vitamin B-12 (VITAMIN B-12) 250 mcg tablet Take 1 Tab by mouth daily. 90 Tab 3 Taking metoprolol tartrate 50 mg tablet Take 1 tablet by mouth in the morning and 1 tablet in the evening. not taking sacubitriL-valsartan 24-26 mg tablet Take 0.5 tablets by mouth in the morning and 0.5 tablets in the evening. 30 tablet 1 Taking furosemide 40 mg tablet Take 1 tablet by mouth every morning and evening. 90 tablet 1 Taking mupirocin 2 % ointment Apply to area(s). prn HOSPITAL MEDICATIONS Current Facility-Administered Medications Medication Dose Route Frequency Last Rate Last Admin heparin 1,000 unit/mL (10 mL) - dialysis catheter care 2,000 Units Slow IV Push PRN - SEE INSTRUCTIONS furosemide (LASIX) injection 80 mg 80 mg Slow IV Push DAILY 80 mg at 07/25/24 0913 metoprolol tartrate (LOPRESSOR) tablet 12.5 mg 12.5 mg Oral BID 12.5 mg at 07/25/24 0914 acetaminophen (TYLENOL) tablet 650 mg 650 mg Oral Q6HPRN 650 mg at 07/23/24 1801 acetaminophen-codeine (TYLENOL #3) 300-30 mg tablet 1 tablet 1 tablet Oral Q6HPRN acetaminophen-codeine (TYLENOL #3) 300-30 mg tablet 2 tablet 2 tablet Oral Q4HPRN 2 tablet at 07/25/24 1317 aspirin chewable tablet 81 mg 81 mg Oral DAILY 81 mg at 07/25/24 0914 atorvastatin (LIPITOR) tablet 40 mg 40 mg Oral QHS 40 mg at 07/24/24 1958 bisacodyL (DULCOLAX) suppository 10 mg 10 mg Rectal PRN - SEE INSTRUCTIONS dextrose 50 % in water (D50W) injection 25 mL 25 mL Slow IV Push PRN ferrous sulfate tablet 325 mg 325 mg Oral QMON/WEDS/FRI 325 mg at 07/24/24 0814 glucagon HCL injection 1 mg 1 mg Intramuscular PRN heparin (porcine) injection 5,000 Units 5,000 Units Subcutaneous BID 5,000 Units at 07/25/24 0914 levothyroxine (SYNTHROID) tablet 25 mcg 25 mcg Oral QAM-0600 25 mcg at 07/25/24 0510 ondansetron (ZOFRAN (PF)) injection 4 mg 4 mg Slow IV Push Q6HPRN pantoprazole (PROTONIX) EC tablet 40 mg 40 mg Oral DAILY 40 mg at 07/25/24 0914 sennosides-docusate sodium (SENOKOT-S) 8.6-50 mg per tablet 1 tablet 1 tablet Oral BID 1 tablet at 07/25/24 0914 Sliding Scale Insulin - Lispro (HumaLOG) Subcutaneous TID MEALS+HS 1 Units at 07/23/241999 sodium phosphates (AASSJ-MH-TZH ENEMA) 19-7 gram/118 mL enema 1 Enema 1 Enema Rectal PRN - SEE INSTRUCTIONS midodrine (PROAMATINE) tablet 10 mg 10 mg Oral TID 10 mg at 07/25/24 151 QUEtiapine (SEROQUEL) tablet 25 mg 25 mg Oral QHS 25 mg at 07/24/241957 ALLERGY Allergies Allergen Reactions Diltiazem Rash Keflex [Cephalexin] Rash REVIEW OF SYSTEMS General: (-) fever, (-) chills, (-) weight change, (-) dizziness, (-) fatigue, (-) change in appetite Skin: (-) rash, (-) lesion HEENT: (-) headache, (-) change in hearing, (-) change in vision, (-) nasal discharge, (-) sore throat Neck: (-) pain, (-) difficulty swallowing, (-) mass Heme: (-) bleeding disorder Resp: (-) cough, (-) shortness of breath, (-) dyspnea on exertion Cardio: (-) chest pain, (-) palpitations, (-) syncope GI: (-) abdominal pain, (-) nausea, (-) vomiting, (-) diarrhea, (-) constipation, (-) melena, (-) hematochezia, (-) hematemesis : (-) dysuria, (-) hematuria, (-) increased frequency, (-) difficulty urinating, (-) difficulty initiating Endo: (-) heat intolerance, (-) diabetes, (-) cold intolerance, (-) polyuria, (-) polydipsia, (-) renal insufficiency, (-) thyroid disease Neuro: (-) numbness, (-) tingling, (-) weakness Back: (-) pain, (-) spasms MINE: (-) muscle pain, (-) joint pain, (-) claudication Psych: (-) anxiety, (-) depression, (-) psychiatric disorder PHYSICAL EXAM Vitals: 07/25/24 1455 07/25/24 1500 07/25/24 1530 07/25/24 1600 BP: 118/72 122/63 110/49 136/63 BP Location: Right arm Patient Position: Supine Pulse: 94 84 81 99 Resp: 20 Temp: 36.3 ?C (97.3 ?F) TempSrc: Skin SpO2: Weight: 114 kg (251 lb 4.8 oz) Height: Body mass index is 32.27 kg/m?. General: Alert and oriented x 4 (time, person, place and situation); no apparent distress. Mental Status: Attention, concentration: stays focused and on task while being questioned. Speech/ Language: intact fluency, comprehension, naming and repetition. Remote and recent memory: normal, can recall recent and distant memories Cranial Nerves: I. Not tested. II. Patient eyes dilated by ophthalmology unable to examine pupillary reflex. Left inferior quadrantanopsia noted III. IV., . extraocular muscles intact V. intact sensation in bilateral V1-3 distributions. VII. No facial droop noted. VIII. Decreased hearing on the left chronic issue. IX., X. Palatal elevation and gag response present symmetrically. XI. normal strength of sternocleidomastoid and trapezius muscles bilaterally. XII. Tongue in midline. Motor: Bulk: without edema or atrophy Tone: normal Tremors: neg STRENGTH Right Left Deltoid 5 5 Biceps 5 5 Triceps 5 5 Wrist extensors 5 5 Interossei 5 5 Hip flexors 5 5 Knee flexors (hamstring) 5 5 Knee extensors (quadriceps) 5 5 Ankle dorsiflexors 5 5 Ankle plantar flexors 5 5 DTR's: Right Left Biceps 2+ 2+ Triceps 2+ 2+ Brachioradialis 2+ 2+ Patella 2+ 2+ Achilles 1+ 1+ Pathologic reflexes and signs: Crump: absent Babinski: absent Cerebellar: Nystagmus: neg, FTN: nl, HTS:nl, Dysdiadochokinesia: neg Sensory: LT: intact, PP: intact, proprioception: intact Gait: Deferred Neck:supple,no carotid bruit,no JVD Cardio: S1, S2 normal Lungs: clear to auscultation bilaterally Extremities: CABG sternectomy incision noted; 2 + pedal edema Right upper extremity bluish nails noted,clubbing or edema LABS Recent Results (from the past 24 hour(s)) POCT GLUCOSE (AUTOMATED) Collection Time: 07/24/24 4:48 PM Result Value Ref Range POCT GLU 102 70 - 110 mg/dL POCT GLUCOSE (AUTOMATED) Collection Time: 07/24/24 8:02 PM Result Value Ref Range POCT GLU 131 (H) 70 - 110 mg/dL Cbc without Diff Collection Time: 07/25/24 5:14 AM Result Value Ref Range WBC 11.79 (H) 4.20 - 10.70 10*3/?L RBC 2.78 (L) 4.26 - 5.52 10*6/?L HGB 8.1 (L) 12.2 - 16.4 g/dL HCT 24.5 (L) 38.4 - 49.3 % MCH 29.1 26.1 - 32.7 pg MCV 88.1 81.7 - 95.6 fL MCHC 33.1 31.2 - 35.0 g/dL PLT 149 (L) 150 - 328 10*3/?L MPV 9.6 (L) 9.8 - 13.0 fL RDW-CV 15.1 12.1 - 15.4 % RDW-SD 49.1 38.5 - 51.6 fL NRBC x10 3 <0.01 10*3/?L NRBC/100 WBC 0.0 0.0 - 10.0 /100 WBCs IPF % Basic Metabolic Panel (NA, K, CL, CO2, GLUCOSE, BUN, CREATININE, CA) Collection Time: 07/25/24 5:14 AM Result Value Ref Range NA 126 (L) 135 - 145 mmol/L K 4.5 3.5 - 5.0 mmol/L CL 96 (L) 98 - 108 mmol/L CO2 TOTAL 24 23 - 31 mmol/L AGAP 6 2 - 16 BUN 43 (H) 7 - 23 mg/dL GLUCOSE 104 70 - 110 mg/dL CREATININE 3.44 (H) 0.60 - 1.25 mg/dL CALCIUM 7.8 (L) 8.6 - 10.6 mg/dL eGFR 17.3 mL/min/1.73m2 Magnesium Collection Time: 07/25/24 5:14 AM Result Value Ref Range MAGNESIUM 2.1 1.7 - 2.4 mg/dL Phosphorus Collection Time: 07/25/24 5:14 AM Result Value Ref Range PHOSPHORUS 3.9 2.5 - 5.0 mg/dL POCT GLUCOSE (AUTOMATED) Collection Time: 07/25/24 8:21 AM Result Value Ref Range POCT GLU 103 70 - 110 mg/dL POCT GLUCOSE (AUTOMATED) Collection Time: 07/25/24 11:33 AM Result Value Ref Range POCT GLU 110 70 - 110 mg/dL STROKE LABS HGB A1C (%) Date Value 07/23/2024 5.0 LDL CHOL Date Value 04/24/2024 30 mg/dL 10/16/2014 118 MG/DL CHOL Date Value 04/24/2024 68 mg/dL (L) 10/16/2014 183 MG/DL TSH Date Value 05/28/2024 8.58 mIU/L (H) 09/12/2011 1.40 uIU/mL Recent Labs 05/28/24 1432 05/29/24 0436 TROPNI 0.011 0.017 RADIOLOGY Chest 2 Views - Upright ( PA, LAT) on POD # 3 Result Date: 07/25/2024 Bilateral moderate pleural effusions with compressive atelectasis or consolidation. Carrie Patel MD., have reviewed this study and agree with the above report. === Study performed on encounter date 05/28/24 === CT TRAUMA HEAD WO CONTRAST - Impression - 1. No acute intracranial abnormality. 2. No acute fracture or traumatic malalignment of the cervical spine. Preliminary Report Dictated by Resident: Ariel Zaidi MD., have reviewed this study and agree with the above report. === Study performed on encounter date 05/28/24 === Transthoracic echo (TTE) Routine - Interpretation Summary - Left Ventricle: Left ventricle is severely dilated. Dilated by LV volume index calculation. Mildly increased wall thickness. Ventricular mass is normal. There is mild concentric remodeling. LVIDD is 5.60 cm. Global hypokinesis present. Estimated EF is 30 - 35%. EF by 2D Graham biplane is 34%. Global longitudinal strain is -12%. Unable to assess diastolic function due to inadequateTissue Doppler data. There are prominent trabeculations. Right Ventricle: Right ventricle is dilated. Normal systolic function. Echocardiographic features suggestive of prominent trabeculation. Aortic Valve: Severely calcified cusps with nodular calcification on right coronary cusp. Severe annular calcification. At least moderate transvalvular regurgitation with a centrally directed jet. Consistent with normal flow low gradient severe aortic stenosis. AV mean gradient is 28.3 mmHg. AV peak velocity is 362.5 cm/s. AV area by continuity VTI is 1.2 cm2.(Index 0.55 cm2/m2) Left Atrium: Left atrium is grossly dilated. No apical 2 chamber view. Mitral Valve: Moderate mitral annular calcification. LDL CHOL Date Value 04/24/2024 30 mg/dL 10/16/2014 118 MG/DL ASSESSMENT AND PLAN Mayank Hurley is a 79 year old male with PMH of ESRD (HD TThSa), HFrEF (EF 30-35% 05/2024), CAD, moderate AR, severe AV stenosis, ascending aortic aneurysm (4.8cm), HTN, hypothyroidism, BPH (w/ chronic indwelling Bella, s/p TURP 2016), GERD, and secondary hyperparathyroidism (renal) who underwent CABG in AVR repair on 07/19/2024, presented with complaints of left lower quadrant vision issues and blurriness 5 days ago. 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 No imaging done as of now. Given multiple vascular risk factor and recent open heart surgery, likely patient had e/o ischemic insult, warrants vessel imaging, MRI Brain and for further management. Spoke to and patient at bedside agree with plan. Anatomic localization: likely optic radiation parieto-occipital region Stroke etiology: Cardio-embolic; vessel to vessel Left inferior homonymous quadrantanopsia List of Problems: Recent CABG surgery 2/2 VHD AVR and aortic aneurysm Hypertension Hyperlipidemia ESRD on HD HFrEF (EF 30-35% 05/2024) - Neuroimaging stat CT Head, CT Angio head and Neck - MRI Brain wo contrast - C/w Aspirin 81mg and Lipitor 40 mg daily - maintain normotension - Start Telemetry monitoring - Check fasting Lipid panel, HgA1c, U/A, TSH, PT, PTT, Troponin x 2 - Frequent Neurochecks - Avoid hyperthermia, pain and constipation - Fall precautions - Consult PT/OT/ Speech pathology/Primary swallowing screen - Change Room Attendant on stroke education Imaging: - CTA head and neck - TTE w/ bubble study - MRI brain without contrast Discussed with Dr. Kramer, Neurology Faculty ; will be staffed with Stroke team MARGARITO Hurd Department of Neurology, PGY-2 ENT SAFETY OFFICER Associated attestation - Elana Kramer MD - 07/25/2024 11:28 PM PATIENT SAFETY OFFICER I personally examined patient on 07/27/2024 during rounds with the Stroke Team as none CODE STROKE and I agree with resident's note. I actively participated in the decision-making process. Please see the resident's note for additional details. 79-year-old right-handed man with multiple stroke risk factors as per the note who underwent CABG on 07/19/2024 for aortic valve and ascending aortic aneurysm repair. We are consulted for vision change. He has been seeing black hole in the lower left quadrant of both eyes. He denies any focal weakness numbness or speech abnormality. I personally reviewed multiple cranio-cervical images from 07/25/2024 including chest x-ray that showed to my eye bilateral moderate pleural effusion with atelectasis. On examination, an elderly man lying in bed comfortable in no apparent distress. Vital signs are stable, alert oriented x 4. Cranial nerves are intact with the exception of left lower quadrant visual field defect within both eyes. Strength is full in both extremities with symmetric deep tendon reflexes. Glucose 102, WBC 11.7, HCT 24.5, PLT 149, NA 126, K4.5, BUN 43, GFR 17.3, magnesium 2.1, phosphorus 3.9, hemoglobin A1c 5 and LDL from 04/24/2024 was 30. 2D echocardiogram showed 30 to 35% ejection fraction with severely dilated left ventricle and atrium. 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 Embolic Coronary artery disease status post CABG 6 days ago Hypertension requiring treatment GERD requiring treatment Hyperparathyroidism Hypercholesterolemia End-stage renal disease on hemodialysis HFrEF Agree with current medical management and secondary stroke prevention Stroke workup including CT, CTA and MRI of the brain Will follow with you I spent a Total Time of 83 minutes. The time spent for patient care includes: PreCharting (eg, review of tests, notes, etc.), Performing a medically appropriate examination and/or evaluation, Counseling and educating the patient/family/caregiver, Ordering medications, tests, or procedures, Ordering referrals and/or communicating with other health adult day care worker (when not separately reported), Documenting clinical information in the electronic or other health record, Independently interpreting results (not separately reported) and/or communicating results to the patient/family/caregiver, and Care coordination (not separately reported). 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 He reports images on left side of his visual field with a white blur in both eyes. He said he was "out of it" for a couple of days after his surgery, but afterwards noted this defect to the left of his central vision, in both eyes individually and together. He thinks it may be improving but is unsure. PMH per chart review: "ESRD secondary to BPH (HD T//Mon), chronic indwelling bella, CAD, HFrEF (LVEF 35-40% on TTE 05/2024. Admitted to the SICU after AVR, CABG x 2, and ascending aortic aneurysm repair on " 07/25/24 No symptomatic change Ocular ROS: Contact lens wearer - No Trauma to the eye - No Change of vision - No Presbyopia - Yes Diplopia - No Photophobia - No Photopsia and floaters - No Eye pain - No Discharge - No Redness - No Past Ocular History See HPI Ocular Family History See HPI Ocular Medications See HPI Past Medical History Past Medical History: Diagnosis Date BPH (benign prostatic hyperplasia) Erectile dysfunction GERD (gastroesophageal reflux disease) HTN (hypertension) Family History Family History Problem Relation Age of Onset No Significant Medical Problems NoFHx Social History reports that he has never smoked. He has never used smokeless tobacco. He reports current alcohol use of about 8.3 - 16.7 standard drinks of alcohol per week. He reports that he does not use drugs. Medications Prior to Admission medications Medication Sig Start Date End Date Taking? Authorizing Provider magnesium oxide 400 mg magnesium capsule Take 1 capsule by mouth in the morning. Yes Doctor Unassigned, [place] sulfamethoxazole-trimethoprim (BACTRIM DS) 800-160 mg per tablet Take 1 tablet by mouth in the morning and 1 tablet in the evening. 07/12/24 Yes Kaitlynn Minaya vitamin b complex-vitamin c-folic acid (OLIVER-NEMESIO) 0.8 mg tablet Take 1 tablet by mouth in the morning. Yes Doctor Unassigned, [place] aspirin 81 mg chewable tablet Take 1 tablet by mouth in the morning. 06/03/24 Yes Richa Boudreaux DO atorvastatin 40 mg tablet Take 1 tablet by mouth at bedtime. 06/03/24 Yes Richa Boudreaux DO carvediloL 3.125 mg tablet Take 1 tablet by mouth in the morning and 1 tablet in the evening. Take with meals. 06/03/24 Yes Richa Boudreaux DO levothyroxine 25 mcg tablet Take 1 tablet by mouth every morning. 06/03/24 Yes Richa Boudreaux DO pantoprazole 40 mg EC tablet Take 1 tablet by mouth in the morning. 06/03/24 Yes Richa Boudreaux DO sevelamer 800 mg tablet Take 1 tablet by mouth in the morning and 1 tablet at noon and 1 tablet in the evening. Take with meals. 06/03/24 Yes Richa Boudreaux DO tamsulosin 0.4 mg 24 hr capsule Take 1 capsule by mouth in the morning. 06/03/24 Yes Richa Boudreaux DO vitamin B-12 (VITAMIN B-12) 250 mcg tablet Take 1 Tab by mouth daily. 11/20/12 Yes Betsy Menchaca MD metoprolol tartrate 50 mg tablet Take 1 tablet by mouth in the morning and 1 tablet in the evening. Doctor Unassigned, [place] sacubitriL-valsartan 24-26 mg tablet Take 0.5 tablets by mouth in the morning and 0.5 tablets in the evening. 06/24/24 Jim Mike MD furosemide 40 mg tablet Take 1 tablet by mouth every morning and evening. 06/03/24 Richa Boudreaux, mupirocin 2 % ointment Apply to area(s). 05/17/24 Doctor Unassigned, [place] Allergies Allergies Allergen Reactions Diltiazem Rash Keflex [Cephalexin] Rash Review of Systems Negative except above mentioned in the HPI BP 112/57 (BP Location: Right arm, Patient Position: Sitting) | Pulse 77 | Temp 36.7 ?C (98 ?F) (Skin) | Resp 20 | Ht 1.88 m (6' 2") | Wt 109.7 kg (241 lb 12.8 oz) | SpO2 99% | BMI 31.05 kg/m? Mental Status: Oriented to Time, Place & Person: Yes Mood, Affect: Normal Ophthalmic Exam Visual acuity: Near; with correction OD: 20/100; 20/70-2 PH OS: 20/70; 20/50-2 PH Pupils: Dark Light Shape Reactivity APD OD 4 2 round reactive no OS 4 2 round reactive no IOP: Administered 1 drop of proparacaine into each eye. Used Tonopen OD: 9 OS: 6 Visual gloria: OD: inferonasal quadrant constriction OS: inferotemporal quadrant constriction Extraocular movements: OD: full OS: full Penlight Exam: OD OS External Normal Normal Lids/Lashes Normal Normal Conjunctiva/sclera White and quiet White and quiet Cornea Clear Clear Anterior chamber Deep and quiet Deep and quiet Iris Round and reactive Round and reactive Lens NS NS Vitreous Normal Normal Dilated fundus exam: Administered 1 drop of 2.5% phenylephrine and 1% tropicamide into each eye at 11:01 AM. OD OS Disc [place], sharp, PPA, no discernable disc edema or pallor [place], sharp, PPA, no discernable disc edema or pallor C/D Ratio Macula Attached, dulled light reflex, drusenoid changes Attached, dulled light reflex, drusenoid changes Vessels Attenuation Attenuation Periphery Attached, drusenoid changes Attached, drusenoid changes Labs Reviewed. Radiology Hospital Encounter on 07/19/24 XR Chest 1 vw Narrative ORDERING PHYSICIAN: LAURA SHERMAN HISTORY: chest tubes removed COMPARISON: 07/21/2024 FINDINGS: Right-sided permacath remains in stable position. Left IJ central venous catheter remains in stable position. The [place]-Dianelys catheter has been withdrawn. Heart remains mildly enlarged. There is increased pulmonary vascular congestion. There are increased bilateral pleural effusions, right greater than left. There is no pneumothorax. Osseous structures are unremarkable. Please note that chest radiography is not a sensitive modality for the detection of masses. Impression 1. No pneumothorax. 2. Increased pulmonary vascular congestion. 3. Increased bilateral pleural effusions, right greater than left. RL: 135 Chest 1 vw Narrative EXAM: XR CHEST 1 VW COMPARISON: 07/20/2024 HISTORY: s/p CABG Impression FINDINGS/IMPRESSION: Interval removal of the endotracheal and enteric tubes. The left IJ [place]-Dianelys catheter tip projects over the pulmonary outflow tract. Right central line tip terminates at the level of distal SVC. Left chest tube tip projects over the left costophrenic angle. 2 drains tips overlie the left upper and left lower mediastinum. Pacer wires are noted. Lungs: The lung volumes are normal. Interval development of the hazy airspace opacities of the right mid lung that can be seen with aspiration/infection or atelectasis. Correlate clinically. Mild left basilar atelectasis and small pleural effusion. Heart/Mediastinum: Post-CABG and aortic valve replacement changes noted. Persistent cardiomegaly. Aortic arch calcification is present. Bones and soft tissues: Sternotomy wires in satisfactory alignment. External defibrillator electrodes noted Preliminary Report Dictated by Resident: Silviano Cano MD., have reviewed this study and agree with the above report. Chest 1 View Narrative ORDERING PHYSICIAN: LANE SANCHEZ HISTORY: Status post open-heart surgery. TECHNIQUE: Frontal view of the chest. COMPARISON: None available. FINDINGS: Distal tip of endotracheal tube measuring 8.8 cm from dante. Median sternotomy wires. Dual lumen right IJ central line distal tip at the inferior aspect of SVC. Left IJ [place]-Dianelys catheter distal tip at main pulmonary outflow tract. Left chest tube in place. Heart size unremarkable. Minimal bibasilar airspace opacities. Very small left-sided pleural effusion. No pneumothorax. Impression 1. Distal tip of endotracheal tube measuring 8.8 cm from dante. Consider advancement by 3 cm and reimaging. 2. Mild bibasilar atelectasis and small left-sided pleural effusion. RL: 326 AF: [id number] END OF REPORT Chest 1 View (on admission) Narrative Chest X-Ray Indication: s/p open heart surgery Technique: Frontal view(s) of the chest submitted for interpretation. Comparison: 05/28/2024 Ordering Clinician: LAURA SHERMAN Technical Quality: Adequate Findings: 1. Partially consolidative opacities of the retrocardiac space. Linear atelectatic opacities of the left lower lobe and right lower lobe as well. Upper lobes appear well-aerated. No sizable pleural effusion or pneumothorax. 2. Right neck approach central vascular catheter terminating within the right atrium. 3. Left neck approach pulmonary artery catheter. 4. Endotracheal tube terminating 6.7 cm above the dante. 5. Enteric tube terminating outside the [id number] of the stomach. 6. 2 drains/tubes are seen terminating within the mid mediastinum and the left lower hemithorax. 7. Interval sternotomy wires. End of report Abdomen XRay 1 View Narrative EXAM: XR ABDOMEN 1 VW HISTORY: 79 years-old Male; Provided indication: OGT placement . TECHNIQUE: Frontal view of the abdomen and pelvis COMPARISON: CT abdomen pelvis obtained on 05/06/2024 Impression FINDINGS/IMPRESSION: The tip of the gastric tube projects over the proximal gastric body and the side-port projects over the gastroesophageal junction. Slight further advancement is recommended. Chest tubes/mediastinal drains and a [place]-Dianelys catheter are partially seen. The visualized bowel loops are mildly distended with a nonobstructive pattern. 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 No disc edema or pallor observed on SLE exam - VF exam varied between left homonymous hemianopsia vs inferior homonymous quadrantanopsia on 4 different bedside assessments within 24 hours, indicating need for formal visual field testing outpatient - Differentials include: insult to the Right optic radiations likely in parietal lobe vs the occipital cortex (Right superior occipital lobe) via anoxic brain injury vs other vascular cause for localized ischemia contributing to patient's field deficits, NAION (unlikely in the absence of disc edema, and given bilateral presentation) Plan: - Neuroimaging recommended e.g. MRI Brain - Recommend Neurology consult to assess for possible anoxic brain injury and consider EEG and other required w/u - Please arrange Vision therapy prior to discharge - PT/OT - Outpatient [place] Visual Field testing for formalized perimetry will be required after discharge - Ophthalmology will sign off inpatient, please reengage with any questions or concerns - Please arrange for follow up with Neuro-ophthalmology outpatient (Dr. Hugo Aceves) for re-evaluation and visual gloria testing within 2 weeks of discharge The preliminary management plan was discussed with the patient and the consulting team. This note is preliminary. The plan of care will not be final until the faculty attestation is included. Seen and discussed with Dr. Rosario, faculty. Bo Khan MD Ophthalmology and Visual Sciences, PGY-2 ENT SAFETY OFFICER Associated attestation - Brenna Rosario MD - 07/26/2024 7:33 PM PATIENT SAFETY OFFICER I discussed the case and examined the patient on 07/25/[address] Khan and agree with her findings and assessment and plan. Perioperative PION is also on the DDx. However, w beverly-operative PION, if there is bilateral vision loss it is often profound and is more often associated with spinal surgery (RF include prolonged intraoperative hypotension, postoperative anemia, increased IOP, spinal surgery (but can also occur in other surgeries including heart bypass)). It is a diagnosis of exclusion (eye exam/ON appears nml). Agree with imaging of head and orbits w & w/o, & fat sat. 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 He reports images on left side of his visual field with a white blur in both eyes. He said he was "out of it" for a couple of days after his surgery, but afterwards noted this defect to the left of his central vision, in both eyes individually and together. He thinks it may be improving but is unsure. PMH per chart review: "ESRD secondary to BPH (HD T//Mon), chronic indwelling bella, CAD, HFrEF (LVEF 35-40% on TTE 05/2024. Admitted to the SICU after AVR, CABG x 2, and ascending aortic aneurysm repair on " Ocular ROS: Contact lens wearer - No Trauma to the eye - No Change of vision - No Presbyopia - Yes Diplopia - No Photophobia - No Photopsia and floaters - No Eye pain - No Discharge - No Redness - No Past Ocular History See HPI Ocular Family History See HPI Ocular Medications See HPI Past Medical History Past Medical History: Diagnosis Date BPH (benign prostatic hyperplasia) Erectile dysfunction GERD (gastroesophageal reflux disease) HTN (hypertension) Family History Family History Problem Relation Age of Onset No Significant Medical Problems NoFHx Social History reports that he has never smoked. He has never used smokeless tobacco. He reports current alcohol use of about 8.3 - 16.7 standard drinks of alcohol per week. He reports that he does not use drugs. Medications Prior to Admission medications Medication Sig Start Date End Date Taking? Authorizing Provider magnesium oxide 400 mg magnesium capsule Take 1 capsule by mouth in the morning. Yes Doctor Unassigned, [place] sulfamethoxazole-trimethoprim (BACTRIM DS) 800-160 mg per tablet Take 1 tablet by mouth in the morning and 1 tablet in the evening. 07/12/24 Yes Kaitlynn Minaya vitamin b complex-vitamin c-folic acid (OLIVER-NEMESIO) 0.8 mg tablet Take 1 tablet by mouth in the morning. Yes Doctor Unassigned, [place] aspirin 81 mg chewable tablet Take 1 tablet by mouth in the morning. 06/03/24 Yes Richa Boudreaux DO atorvastatin 40 mg tablet Take 1 tablet by mouth at bedtime. 06/03/24 Yes Richa Boudreaux DO carvediloL 3.125 mg tablet Take 1 tablet by mouth in the morning and 1 tablet in the evening. Take with meals. 06/03/24 Yes Richa Boudreaux DO levothyroxine 25 mcg tablet Take 1 tablet by mouth every morning. 06/03/24 Yes Richa Boudreaux DO pantoprazole 40 mg EC tablet Take 1 tablet by mouth in the morning. 06/03/24 Yes Richa Boudreaux DO sevelamer 800 mg tablet Take 1 tablet by mouth in the morning and 1 tablet at noon and 1 tablet in the evening. Take with meals. 06/03/24 Yes Richa Boudreaux DO tamsulosin 0.4 mg 24 hr capsule Take 1 capsule by mouth in the morning. 06/03/24 Yes Richa Boudreaux DO vitamin B-12 (VITAMIN B-12) 250 mcg tablet Take 1 Tab by mouth daily. 11/20/12 Yes Betsy Menchaca MD metoprolol tartrate 50 mg tablet Take 1 tablet by mouth in the morning and 1 tablet in the evening. Doctor Unassigned, [place] sacubitriL-valsartan 24-26 mg tablet Take 0.5 tablets by mouth in the morning and 0.5 tablets in the evening. 06/24/24 Jim Mike MD furosemide 40 mg tablet Take 1 tablet by mouth every morning and evening. 06/03/24 Richa Boudreaux DO mupirocin 2 % ointment Apply to area(s). 05/17/24 Doctor Unassigned, [place] Allergies Allergies Allergen Reactions Diltiazem Rash Keflex [Cephalexin] Rash Review of Systems Negative except above mentioned in the HPI BP 114/70 | Pulse 87 | Temp 37.7 ?C (99.9 ?F) (Tympanic) | Resp 23 | Ht 1.88 m (6' 2") | Wt 93.4 kg (206 lb) | SpO2 96% | BMI 26.45 kg/m? Mental Status: Oriented to Time, Place & Person: Yes Mood, Affect: Normal Ophthalmic Exam Visual acuity: Near; with correction OD: 20/100; 20/70-2 PH OS: 20/70; 20/50 PH Pupils: Dark Light Shape Reactivity APD OD 4 2 round reactive no OS 4 2 round reactive no IOP: Administered 1 drop of proparacaine into each eye. Used Tonopen OD: 9 OS: 6 Visual gloria: OD: inferonasal quadrant constriction OS: inferotemporal quadrant constriction Extraocular movements: OD: full OS: full Penlight Exam: OD OS External Normal Normal Lids/Lashes Normal Normal Conjunctiva/sclera White and quiet White and quiet Cornea Clear Clear Anterior chamber Deep and quiet Deep and quiet Iris Round and reactive Round and reactive Lens NS NS Vitreous Normal Normal Dilated fundus exam: Administered 1 drop of 2.5% phenylephrine and 1% tropicamide into each eye at 11:01 AM. OD OS Disc Hillburn, sharp, PPA, no discernable disc edema with 20D lens [place], sharp, PPA, no discernable disc edema with 20D lens C/D Ratio Macula Attached, dulled light reflex, drusenoid changes Attached, dulled light reflex, drusenoid changes Vessels Attenuation Attenuation Periphery Attached, drusenoid changes Attached, drusenoid changes Labs Reviewed. Radiology Hospital Encounter on 07/19/24 XR Chest 1 vw Narrative ORDERING PHYSICIAN: LAURA SHERMAN HISTORY: chest tubes removed COMPARISON: 07/21/2024 FINDINGS: Right-sided permacath remains in stable position. Left IJ central venous catheter remains in stable position. The [place]-Dianelys catheter has been withdrawn. Heart remains mildly enlarged. There is increased pulmonary vascular congestion. There are increased bilateral pleural effusions, right greater than left. There is no pneumothorax. Osseous structures are unremarkable. Please note that chest radiography is not a sensitive modality for the detection of masses. Impression 1. No pneumothorax. 2. Increased pulmonary vascular congestion. 3. Increased bilateral pleural effusions, right greater than left. RL: 135 Chest 1 vw Narrative EXAM: XR CHEST 1 VW COMPARISON: 07/20/2024 HISTORY: s/p CABG Impression FINDINGS/IMPRESSION: Interval removal of the endotracheal and enteric tubes. The left IJ [place]-Dianelys catheter tip projects over the pulmonary outflow tract. Right central line tip terminates at the level of distal SVC. Left chest tube tip projects over the left costophrenic angle. 2 drains tips overlie the left upper and left lower mediastinum. Pacer wires are noted. Lungs: The lung volumes are normal. Interval development of the hazy airspace opacities of the right mid lung that can be seen with aspiration/infection or atelectasis. Correlate clinically. Mild left basilar atelectasis and small pleural effusion. Heart/Mediastinum: Post-CABG and aortic valve replacement changes noted. Persistent cardiomegaly. Aortic arch calcification is present. Bones and soft tissues: Sternotomy wires in satisfactory alignment. External defibrillator electrodes noted Preliminary Report Dictated by Resident: India Mckeon I, Silviano Reynoso MD., have reviewed this study and agree with the above report. Chest 1 View Narrative ORDERING PHYSICIAN: LANE SANCHEZ HISTORY: Status post open-heart surgery. TECHNIQUE: Frontal view of the chest. COMPARISON: None available. FINDINGS: Distal tip of endotracheal tube measuring 8.8 cm from dante. Median sternotomy wires. Dual lumen right IJ central line distal tip at the inferior aspect of SVC. Left IJ [place]-Dianelys catheter distal tip at main pulmonary outflow tract. Left chest tube in place. Heart size unremarkable. Minimal bibasilar airspace opacities. Very small left-sided pleural effusion. No pneumothorax. Impression 1. Distal tip of endotracheal tube measuring 8.8 cm from dante. Consider advancement by 3 cm and reimaging. 2. Mild bibasilar atelectasis and small left-sided pleural effusion. RL: 326 AFC: [id number] END OF REPORT Chest 1 View (on admission) Narrative Chest X-Ray Indication: s/p open heart surgery Technique: Frontal view(s) of the chest submitted for interpretation. Comparison: 05/28/2024 Ordering Clinician: LAURA SHERMAN Technical Quality: Adequate Findings: 1. Partially consolidative opacities of the retrocardiac space. Linear atelectatic opacities of the left lower lobe and right lower lobe as well. Upper lobes appear well-aerated. No sizable pleural effusion or pneumothorax. 2. Right neck approach central vascular catheter terminating within the right atrium. 3. Left neck approach pulmonary artery catheter. 4. Endotracheal tube terminating 6.7 cm above the dante. 5. Enteric tube terminating outside the [id number]-huvt of the stomach. 6. 2 drains/tubes are seen terminating within the mid mediastinum and the left lower hemithorax. 7. Interval sternotomy wires. End of report Abdomen XRay 1 View Narrative EXAM: XR ABDOMEN 1 VW HISTORY: 79 years-old Male; Provided indication: OGT placement . TECHNIQUE: Frontal view of the abdomen and pelvis COMPARISON: CT abdomen pelvis obtained on 05/06/2024 Impression FINDINGS/IMPRESSION: The tip of the gastric tube projects over the proximal gastric body and the side-port projects over the gastroesophageal junction. Slight further advancement is recommended. Chest tubes/mediastinal drains and a [place]-Dianelys catheter are partially seen. The visualized bowel loops are mildly distended with a nonobstructive pattern. Assessment and Plan 79 year old male seen by ophthalmology for Left Inferior Homonymous Quadrantanopsia - VA 20/70 OD, 20/50 OS, IOP wnl OU, no RAPD - Anterior exam: NS OU - DFE: drusenoid changes in the macula and periphery OU - Patient could not sit up at slit lamp on initial assessment 07/24/24, but will be transferred to the chair 07/25 and will be able to tolerate SLE for further evaluation of disc - Differentials include: insult to the Right optic radiations likely in parietal lobe vs the occipital cortex (Right superior occipital lobe) via anoxic brain injury vs other vascular cause for localized ischemia contributing to patient's field deficits, NAION (unlikely in the absence of disc edema, and given bilateral presentation) Plan: - Neuroimaging recommended e.g. MRI Brain - Recommend Neurology consult to assess for possible anoxic brain injury and consider EEG and other required w/u - Please arrange Vision therapy prior to discharge - PT/OT - Outpatient [place] Visual Field testing for formalized perimetry will be required after discharge - Will staff with faculty tomorrow The preliminary management plan was discussed with the patient and the consulting team. Completed note to follow with updated recommendations after discussion with faculty. This note is preliminary. The plan of care will not be final until the faculty attestation is included. Discussed with Dr. Spangler, PGY3 Discussed with Dr. Wagner, faculty. I personally examined the patient and agree with the resident's note as written . I actively participated in the decision-making process. Please see the resident's note for additional details. Juan Wagner MD Asst Professor Dept of Ophthalmology Bo Khan MD Ophthalmology and Visual Sciences, PGY-2 ENT SAFETY OFFICER OPH-OPHTHALMOLOGY STAFF [facility] 2024-07-23 14:01:00 Associated Order(s): CONSULT ADULT PHYSICAL THERAPY Duplicate consult ENT SAFETY OFFICER Kathie Salas PT [facility] 2024-07-23 13:51:00 Associated Order(s): CONSULT ADULT OCCUPATIONAL THERAPY 07/23/2024 1351 OCCUPATIONAL THERAPY NOTE: Duplicate consult. COSMO Fernandez, MOT ENT SAFETY OFFICER [facility] 2024-07-22 14:34:00 Associated Order(s): CONSULT ADULT PHYSICAL THERAPY Patient agreeable to working with physical therapy. Patient semireclining in bed and Heels offloaded? No: not required as patient is alert and oriented, as well as exhibits sufficient LE strength and ability to move/reposition LEs/heels throughout the day, Spouse present, Daughter present, and Vital signs stable . Recommend nursing staff utilize Min A for transfers, or Mechanical Lift if patient too fatigued to safely assist patient with mobility out of the bed or chair. PHYSICAL THERAPY EVALUATION Consult received, chart reviewed and evaluation complete this date. Patient is referred to PT for evaluation and treatment. Patient is a 79 year old male who presents to hospital for Aneurysm of ascending aorta without rupture [I71.21] Aortic valve stenosis, etiology of cardiac valve disease unspecified [I35.0] Stage 4 chronic kidney disease [N18.4]. Discharge Recommendations: Therapy Needs and Potential: Patient would benefit from continued physical therapy services to address: decline in bed mobility decline in transfers decline in gait and/or balance decreased endurance decreased coordination decreased motor planning Patient demonstrates good potential to improve and meet therapy goals with further physical therapy services. Patient appears motivated to improve their functional mobility and return to their previous level of function. Patient demonstrates ability to tolerate atleast 30-60 minutes of physical therapy with active participation. Challenges to Home Transition: increased risk of falls decreased caregiver availability environmental barriers Equipment recommendations: Will continue to assess equipment needs as patient progresses with physical therapy. Current Functional Status and/or Treatment: AM-PAC 6 Clicks (Raw Score 0=Dependent, 24=Independent; Low function Raw Score 0= Dependent, 32=Independent): Raw Score - Basic Mobility : 15 T-Scale Score - Basic Mobility : 36.97 Pt seen in conjunction with OT (Julio Cesar Gonzales, LESLYE) secondary to anticipated limited activity tolerance and safety. Only billing for PT services. Patient monitored for othostatics as follows: Supine: 106/53 MAP (68) HR 82 Sittin/60 MAP (66) HR 82 Standin/53 MAP (66) HR 88 Bed Mobility: Semi reclined-sit: Moderate Assistance Sitting balance Fair+ Scooting to edge of bed: Moderate Assistance Patient educated on adaptive strategy of holding onto pillow with arms crossed over chest in order to avoid breaking sternal precautions during functional mobility. Patient demonstrated understanding. Patient requires Mod A for management of trunk and B LE during transition from semi reclined to sitting edge of bed, with careful attention to CRRT lines Patient requires Mod A to correct retropulsion when initially sitting edge of bed but after tactile/verbal cueing patient cued maintain midline trunk position without physical assistance. Patient requires Mod A for facilitating weight shifting and for advancing hips to allow for B foot contact with floor during scooting to edge of bed. Patient demonstrates good ability to maintain sternal precautions during bed mobility. Transfers: Sit to stand: Minimal Assistance using hand held assist Stand to sit: Minimal Assistance using hand held assist Stand pivot transfer: Minimal Assistance Static/dynamic standing balance: Fair Patient requires Min A for stand and for stability once in standing as patient demonstrates decreased control of center of gravity over base of support Patient requires Min A for control of eccentric lowering from standing position. Patient verbally cued for technique when performing transfer while maintaining sternal precautions. Ambulation: Defer due to patient being unable to tolerate at this time secondary to decreased activity tolerance. Therapeutic exercise: patient educated in Compensatory techniques/adaptive strategies, Deep breathing, Fall prevention, General strengthening, Joint protection, Positioning, Post heart surgery, Relaxation/breathing techniques, Safety awareness, Sternal precautions, and Movement restrictions., instructed patient in the following: ankle pumps, toe flexion/extension, heel slides, hip abduction/adduction, hip internal/external rotation, patient/caregiver instructed to perform HEP 3 times per day, 10 repetitions., patient/caregiver verbalizes understanding of instructions., and -educated patient on importance of performing the HEP which consists of the above exercises 3 times a day and -patient verbalizes understanding of instructions provided Patient educated on deep breathing technique for improved activity tolerance and for pain management. Patient educated on fall prevention strategies to reduce risks of falls. Patient educated on energy conservation techniques in order to decrease level of exertion and decrease risks of falls Patient educated on sternal precautions before and after session for improved retention. After session, patient reclining in bedside chair and Heels offloaded? Yes reclined , Spouse present, Daughter present, Vital signs stable , and GAURAV LE elevated. Yudith sling positioned underneath patient. Call button provided. All needs met, and nursing notified. Patient vitals stable throughout session. Patient Vitals After Functional Activity: HR 88 BPM, BP 115/55 MAP (72), SpO2 95% PLAN OF CARE: While in the hospital, PT will follow patient at least 3 times per week,once or twice a day, per patient's tolerance and needs. See below for complete details. Admit Date: 07/19/2024 Hospital Diagnosis:Aneurysm of ascending aorta without rupture [I71.21] Aortic valve stenosis, etiology of cardiac valve disease unspecified [I35.0] Stage 4 chronic kidney disease [N18.4] PT Diagnosis: Difficulty walking, Weakness, Malaise/fatigue, Vertigo/dizziness, Pain, and Abnormality of gait and balance Weight Bearing Precaution: NA, no lifting greater than 10 lbs General Precautions: PPE used:Gloves, General, Fall, Sternal, Lines/Tubes, Cardiac, pacemaker,Bella catheter, IV R UE, HD Catheter R internal jugular, Introducer Left internal jugular, CVC Left internal jugular, oxygen: Room air, R chest Port Cath with CRRT Attached Bracing/Cast present or required:N/A PMH: Past Medical History: Diagnosis Date BPH (benign prostatic hyperplasia) Erectile dysfunction GERD (gastroesophageal reflux disease) HTN (hypertension) PSH: Past Surgical History: Procedure Laterality Date AORTIC VALVE REPLACEMENT N/A 07/19/2024 Surgeon: Laura Sherman MD; Location[facility] ASCENDING AORTIC ANEURYSM REPAIR N/A 07/19/2024 Surgeon: Laura Sherman MD; Location: [facility] CORONARY ARTERY BYPASS GRAFT N/A 07/19/2024 Surgeon: Laura Sherman MD; Location: [facility] OR LOC[facility] PRIOR LIVING SITUATION: lives with their spouse and in a elevated house, Ramp access DME: No device Prior level of Mobility: community ambulation, house hold ambulation, ambulates with no device Suspected ischemic or hemorraghic stroke:No Subjective: I can try and get up Patient/Family Goals: 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/employee 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 encouraged by therapist to set a goal,but did not state a goal this visit Patient/Family verbalizes understanding of condition: Yes PAIN: -Pain Description: aching -Pain Location: sternum and diffuse/generalized -Pain rating before treatment: 1, After treatment: 1 -Pain Management: Nursing Notified and Repositioning Provided COMMUNICATION Primary Language: [place] Able to Verbalize needs: Yes Vision:good; no issues reported and glasses Hearing:good; no issues reported ORIENTATION/COGNITION: Oriented to: person, place, date/time, and situation Awake: Yes Alert: Yes Dizzy: No Follows Commands: Yes 1-Step Yes Multi-Step Yes Inconsistent: No NEUROLOGICAL Light Touch: within functional limits bilateral LE, Heel to castro: Intact B LE Tone: Normal B LE BALANCE: Sitting: Static: Fair+ Dynamic: Fair+ Standing: Static: Fair Dynamic: Fair RANGE OF MOTION: within functional limits bilateral LE, STRENGTH: Grossly 5/5 (Normal), L LE knee extensors, knee flexors, ankle dorsiflexors, and extensor hallucis longus. Grossly 4+/5 R LE knee extensors, knee flexors, ankle dorsiflexors, and extensor hallucis longus. ENDURANCE: Fair, Room air SKIN INTEGRITY: not intact, surgical incision chest, please defer to nursing note for details. PROBLEM LIST: Decline in bed mobility, Decline in gait, Decline in transfers, Decreased strength, Decreased endurance, Decreased balance, Safety awareness deficits, and Pain ASSESSMENT: Patient is a 79 year old male seen secondary to the above listed diagnosis. Patient would benefit from continued PT to address the above listed deficits to maximize independence and safety with functional mobility. Rehabilitation Potential: good Goals: The following goals are to maximize independence and safety with functional mobility to eventually return to prior living situation and prior functional status. Upon discharge, patient and/or family will demonstrate the followin. Supine-sit: Independent Sit to supine: Independent Sitting balance Good 2. Sit to stand: Independent using least restrictive AD Stand to sit: Independent using least restrictive AD 3. Independent with ambulation, Feet: 600 using least assistive device. Treatment Plan: Gait training, Therapeutic exercise, Transfer training, Balance training, Bed mobility training, Equipment needs assessment, Safety education, patient/caregiver education, Pain management, Neuromuscular Re-Education, and Functional Motor Training PATIENT EDUCATION: Patient, Family member, and Significant other provided with preferred teaching of verbal information on role of PT, plan of care, home safety, sternal precautions, fall prevention. Shows readiness to learn. Verbal instruction teaching provided. Individual is able to read and verbalizes understanding of teaching provided. Total Time Tx Codes in Minutes: 23 min Total Treatment Time in Minutes: 56 min Junior Henry PT, DPT [facility] Rehabilitation Services A physical therapy evaluation of high complexity was completed based on meeting at the criteria below: A history of present problem with at least 3 or more personal factors (includes environmental factors) and/or comorbidities that impact the plan of care An examination of body systems using standardized tests and measures addressing a total of at least 4 or more elements from any of the following: body structures and functions, activity limitations, and/or participation limitations A clinical presentation with unstable and unpredictable characteristics [facility] 2024-07-22 14:33:00 Associated Order(s): CONSULT ADULT OCCUPATIONAL THERAPY OT GENERAL EVALUATION Consult received via abcdexperts, EMR reviewed and evaluation completed 07/22/24. Patient referred to occupational therapy for evaluation and treatment secondary to Aortic valve stenosis, etiology of cardiac valve disease unspecified and s/p CABG x2. Patient agreeable to participate in occupational therapy. Patient found semireclining in bed, Spouse present and Daughter present. Pt actively on CRRT; however, nursing agreed to OT/PT working with patient. Pt seen in conjunction with Bijan Henry DPT secondary to limited activity tolerance due to pain. Only billing for OT services. Discharge Recommendations: Therapy Needs and Potential:- Patient would benefit from continued skilled occupational therapy services to address: Decline in basic activities of daily living, Decline in instrumental activities of daily living, Decreased strength, Decreased range of motion, Decreased endurance, and Decreased coordination - Patient demonstrates good potential to improve and meet therapy goals with further skilled occupational therapy services. - Patient appears motivated to improve their BADLS and IADLs and return to their previous level of function. - Patient exhibits limited activity tolerance. - Patient able to follow commands: 1-step Yes, Multi-step NT, Inconsistencies No Challenges to Home Transition:- Requires physical assistance for BADLS - Requires physical assistance for IADLS - Requires supervision or verbal cues for BADLS - Requires supervision or verbal cues for IADLS - Limited caregiver availability - Increased risk of falls - Environmental barriers Equipment Recommendations:Bedside commode, Shower chair, Long handled sponge, Long handled machining manager, and Sock aide PLAN OF CARE: At least 3x/week Precautions: Weight bearing status: No lifting greater than 8 lbs. General: PPE Utilized: Gloves, Fall, CRRT and Bella Bracing: N/A Subjective: Current Occupational Performance and/or Treatment: AM-PAC 6 Clicks (Raw Score 0=Dependent, 24=Independent; Low function Raw Score 0= Dependent, 32=Independent): Raw Score - Daily Activity: 13 T-Scale Score - Daily Activity: 32.03 Feeding: Supervision, pt drank from thermos while sitting upright in bedside chair Grooming: Supervision, pt used tissue to wipe mouth while semi-reclining in bed. Bathing: NT, educated pt on use of shower chair to prevent falls in the shower. Pt educated bathing protocol (no submersion, use dye-free/fragrance-free soap, pat dry; repeat daily). LB Dressing: Maximum Assistance, pt unable to reach feet at this time but could lift feet up when cued to allow therapist to don socks for pt. Toileting Hygiene: Total Assistance, bella, pt with neurogenic bladder secondary to prostate cancer; pt straight caths at home. Functional Mobility: Defer to PT evaluation. Additional time required to manage CRRT lines and IV lines/monitors. Pt cued throughout to not push through GAURAV UE when performing supine>sit and sit>stand. Patient/caregiver educated on:Adaptive equipment, ADL training, Deep breathing, Positioning (pt educated on benefits of sitting upright in bedside chair to promote proper lung function and healing), Post heart surgery (handout issued/reviewed), Role of OT, Safety awareness, and Movement restrictions/Sternal Precautions. Patient left reclining in bedside chair with call robert in reach. Spouse present and Daughter present. Please, see full evaluation below for more detail. OT EVALUATION: 79 year old male Admit date: 07/19/2024 Date of onset: 07/19/2024 Admit Diagnosis: Aneurysm of ascending aorta without rupture [I71.21] Aortic valve stenosis, etiology of cardiac valve disease unspecified [I35.0] Stage 4 chronic kidney disease [N18.4] OT Diagnosis: Impaired BADL independence, Impaired IADL independence, Weakness, Activity intolerance, Decreased endurance, Impaired self-care mobility, and Limited joint ROM PMH: Past Medical History: Diagnosis Date BPH (benign prostatic hyperplasia) Erectile dysfunction GERD (gastroesophageal reflux disease) HTN (hypertension) PSH: Past Surgical History: Procedure Laterality Date AORTIC VALVE REPLACEMENT N/A 07/19/2024 Surgeon: Laura Sherman MD; [facility] ASCENDING AORTIC ANEURYSM REPAIR N/A 07/19/2024 Surgeon: Laura Sherman MD; [facility] CORONARY ARTERY BYPASS GRAFT N/A 07/19/2024 Surgeon: Laura Sherman MD; Location[facility] PAIN: Pain Location: sternum Pain rating before treatment: 1, After treatment: 1 Pain Management: Decreased movement aides in some pain reduction and Repositioning Provided OCCUPATIONAL ROLES/HOME ENVIRONMENT: Home environment: Lives with spouse, elevated Single story home, Stairs, and Ramp. Spouse can provide supervision but will be limited in ability to assist physically. 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 Function prior to admission: Household ambulation, Community ambulation, Independent with BADLs, and Independent with IADLs Suspected ischemic or hemorraghic stroke patient: No Equipment prior to admission: Suction cup Grab bars PERFORMANCE SKILLS/FACTORS: UE Muscle Tone: bilateral WNL UE ROM: bilateral AROM WFL (shoulder flexion ~90 degrees) UE Strength: GAURAV grasp 3+/5 Hand dominance: right Dexterity/Coordination: bilateral Gross motor skills Intact Endurance - Sitting: Fair+ Standing: Fair Sitting Balance - Static: Fair+ Dynamic: Fair+ Standing: Balance - Static Fair Dynamic: Fair Dizziness: Yes Skin Integrity: Edema (GAURAV UE/LE L>R) and surgical incision Sensation: Patient denies numbness and tingling. Oral Motor: WFL Communication: Able to verbalize needs Yes Other: N/A Vision: WFL Yes Other: glasses or contacts, reading glasses Hearing: hard of hearing (R>L) COGNITION: Orientation: NT; no concerns at this time Follows Commands: 1-step Yes Multi-step NT Inconsistencies No Safety Awareness/Judgment: Good PROBLEM LIST: Decreased independence with ADL and Decreased strength/endurance for functional activity REHAB POTENTIAL/PROGNOSIS: good PATIENT/FAMILY GOALS: To get strong enough to have prostate surgery TREATMENT/INTERVENTION PLAN: Patient/Caregiver Education, Equipment recommendations, Daily living activities, and Therapeutic exercises GOAL(S): By discharge, patient will increase independence in daily living skills as follows: 1 Patient will perform toilet transfer OR 3 in 1 BSC transfer with supervision. 2 Patient will perform UB dressing with independence. 3 Patient will perform LB dressing with supervision with AE as needed. 4 Patient will complete 1 grooming task with supervision while standing at the sink. 5 Patient will complete toileting hygiene, including clothing management, with supervision. 6 Patient will increase endurance for functional activity as evidenced by ability to sustain 20 minutes of active participation. 7 Patient/caregiver will verbalize/demonstrate understanding/proficiency in the following home programs: Adaptive equipment, 8 Deep breathing, 9 Energy conservation, and 10 Fall prevention PATIENT-FAMILY TEACHING Patient and Significant other provided with preferred teaching of verbal information and demonstration on Adaptive equipment, ADL training, Deep breathing, Positioning (pt educated on benefits of sitting upright in bedside chair to promote proper lung function and healing), Post heart surgery (handout issued/reviewed), Role of OT, Safety awareness, and Movement restrictions/Sternal Precautions.. Shows readiness to learn. Verbal instruction, Written material, and Demonstration teaching provided. Individual is able to read and verbalizes understanding of teaching provided. COSMO Fernandez, KATI Total Timed Treatment Codes: 23 Min Total Treatment Time: 57 Min Patient Complexity Level High - An occupational therapy evaluation of high complexity was completed using the above tests and measures. The following information was obtained: An occupational profile and medical and therapy history, including review of medical and/or therapy records and extensive additional review of physical, cognitive, or psychosocial history related to current functional performance, Various standardized and non-standardized assessments were used to identify at least 5 or more performance deficits related to physical, cognitive, or psychosocial skills that result in activity limitations and/or participation restrictions, and Clinical decision-making is of high analytic complexity, which includes an analysis of the patient profile, analysis of data from comprehensive assessment(s), and consideration of multiple treatment options. Patient present with comorbidities that affect occupational performance. Significant modification of tasks or assistance (e.g., physical or verbal) with assessment(s) is necessary to enable patient to complete evaluation component. [facility] 2024-07-20 13:18:50 Associated Order(s): CONSULT NEPHROLOGY Nephrology Consult Note Patient Name: Mayank Hurley Admission Date: 07/19/2024 Hospital Length of Stay: 1 days Code Status: Prior Attending Provider: Laura Sherman MD Primary Care Provider: Lilliam Crowley Chief Complaint: No chief complaint on file. Subjective: Brief HPI: Mayank Hurley is a 79 year old male who has a past medical history of BPH (benign prostatic hyperplasia), Erectile dysfunction, GERD (gastroesophageal reflux disease), and HTN (hypertension). He presented to [facility] on 07/[facility]24 with a primary complaint of CABGx2 and AVR. Patient required 7 prbcs, 2 cyro and 4 platelets. On dobutrex, levo and vaso. Making urine. Patient familiar from last hospitalization where he had syncope 2/2 to AV. Patient family history is not on file. Patient has no past surgical history on file. Patient is allergic to diltiazem and keflex [cephalexin]. Patient reports that he has never smoked. He has never used smokeless tobacco. He reports current alcohol use of about 8.3 - 16.7 standard drinks of alcohol per week. He reports that he does not use drugs. Review of Systems: The remainder of the 14 point ROS is noncontributory or negative unless mentioned/reviewed above. Objective: Vital Signs (Most Recent): 122/57 Body mass index is 26.53 kg/m?. Weight: 93.7 kg (206 lb 9.6 oz) Vital Signs (24h Range): Temp: [35.5 ?C (95.9 ?F)-37.2 ?C (99 ?F)] 36.9 ?C (98.4 ?F) Pulse: [80-87] 86 Resp: [6-18] 8 BP: (81-127)/(48-63) 122/57 Intake/Output Summary (Last 24 hours) at 07/20/2024 1319 Last data filed at 07/20/2024 1214 Gross per 24 hour Intake 7546.8 ml Output 1680 ml Net 5866.8 ml Physical Examination: General: Intubated and sedated Head: Normocephalic, atraumatic Eyes: PERRL, EOMI, anicteric sclera Throat: Intubated Neck: supple, no JVD CVS: RRR, S1 and S2 normal, no murmurs, no added heart sounds, rubs, gallops, regular peripheral pulses, and no peripheral edema Resp: Lungs clear to auscultation bilaterally, no wheezes or crackles GI: Abdomen soft, non-tender, non-distended, normoactive bowel sounds MSK: No obvious deformities Skin: No rashes, ulcers, erythema Neuro: Intubated and sedated Psych: Intubated and sedated Access: Permacat Laboratory: Recent Labs 06/04/24 0528 07/19/24 1825 07/19/24 2358 07/20/24 0357 07/20/24 1025 WBC 6.53 8.26 7.81 7.73 7.03 HGB 10.1* 7.5* 7.5* 7.3* 8.3* HCT 29.8* 21.6* 21.7* 20.9* 23.7* PLT 219 80* 78* 73* 66* Recent Labs 04/23/24 1100 04/24/24 0558 04/29/24 0112 04/29/24 2215 05/28/24 1432 05/29/24 0436 05/30/24 0445 05/31/24 0524 06/01/24 1658 06/02/24 0514 06/03/24 0413 06/04/24 0528 07/19/24 0751 07/19/24 1414 07/19/24 1442 07/19/24 1825 07/19/24 2358 07/20/24 0357 NA 131* < > 132* < > 136 < > 133* < > -- 132* 129* 130* -- -- -- 134* 135 135 K 4.0 < > 3.9 < > 4.4 < > 4.6 < > -- 5.0 4.8 5.4* -- -- -- 5.5* 5.3* 4.9 CL 100 < > 98 < > 103 < > 106 < > -- 104 100 103 -- -- -- 108 110* 110* TCO2 23 < > 27 < > 21* < > 18* < > -- 23 24 19* < > 23 24 23 21* 20* BUN 31* < > 37* < > 33* < > 44* < > -- 31* 41* 47* -- -- -- 19 18 17 CREAT 3.61* < > 3.39* < > 3.39* < > 3.41* < > -- 2.73* 3.54* 3.79* -- -- -- 2.38* 2.46* 2.13* GLU 90 < > 100 < > 94 < > 88 < > -- 85 79 83 -- -- -- 125* 160* 156* CA 8.4* < > 8.8 < > 8.2* < > 7.9* < > -- 8.3* 8.3* 8.4* -- -- -- 7.2* 7.3* 7.5* MG 1.7 < > 2.5* < > 2.2 < > 2.0 < > -- 2.0 2.1 2.2 -- -- -- 4.8* -- 3.3* PHOS -- < > 3.3 -- -- -- 5.2* -- 3.7 -- -- -- -- -- -- 3.4 -- 3.9 ALB 3.7 -- 3.4* -- 3.9 -- -- -- -- -- -- -- -- -- -- 1.9* -- -- < > = values in this interval not displayed. Recent Labs 04/23/24 1600 04/25/24225 TPROU -- 17 CREATU 25.6 27.3 PROCRTUR -- 0.6 There are no current results on file for these tests and/or test for 1 year. Recent Labs 06/01/24 1658 PTHINTACT 128.7* Recent Labs 04/24/24 0558 04/26/24 0326 05/02/24 0429 05/06/24 1317 05/28/24 1432 NTBNP 40,500* 35,900* 12,400* 18,200* 14,400* Recent Labs 04/23/24 1600 04/25/24225 TPROU -- 17 CREATU 25.6 27.3 PROCRTUR -- 0.6 Recent Labs 05/28/24 1432 05/29/24 0436 IRON -- 72 FERRITIN 262.0 -- FESAT -- 29 Other Results: Estimated Creatinine Clearance: 32.2 mL/min (A) (by C-G formula based on SCr of 2.13 mg/dL (H)). Assessment & Plan: ESRD on Dialysis TTS - Access: Permacath -due to hemodynamic instability, unable to run conventional HD -will run continuous renal replacement therapy -settings: CVVHD, BFR: 250, DFR: 2400, UF: 0-100, K bath: 2 -check phos qam and replete for <3 - Strict I&O's, Daily weights, avoid nephrotoxins/contrast studies, and renally dose medications Anemia in Chronic Kidney Disease -Hemoglobin: Target 10-11 g/dL, Hb at 8.3 g/dL, Hemodynamics Hypotension -Titrate pressors Electrolyte Derangements Wnl -CVVHD will titrate to 4k once potassium is 4 Acid/Base Metabolic Acidosis -CVVHD Patient was seen, examined and discussed with attending Dr. Elaine May MD Nephrology and Hypertension Fellow PGY-IV 07/20/2024 13:19 ENT SAFETY OFFICER Associated attestation - Myron Henry MD - 07/21/2024 5:54 PM PATIENT SAFETY OFFICER Nephrology Attending Note I have personally seen and examined this patient with the fellow on 07/20/2024 . I have reviewed the assessment and plan as outlined in the progress note and agree with the overall approach to this patient. I personally participated in the decision-making process as relates to this patient's medical condition. Please refer to above progress note for details of the medical care provided. Myron Henry MD [facility] Division of Nephrology & Hypertension [facility] 2024-06-03 14:09:21 Associated Order(s): CONSULT UROLOGY UROLOGY CONSULTATION NOTE Date of Service: 06/03/2024 Reason for Consult: risk assessment holep History of Present Illness Mayank Hurley, 79 year old male with PMH of pLAD bifurcation stenosis, HFrEF, severe AV stenosis, BPH s/p TURP in 2017 with retention now with indwelling bella, CT estimate of prostate 126 cc with plans for holep. Admitted for: 05/30/24 pt went for L/RHC and was found to have severe pLAD/D1 bifurcation stenosis. CTS was consulted for AVR/CABG eval. Final read of CT thorax demonstrated ascending aortic aneurysm of 4.8 cm. TTE 05/31/24 demonstrated severely dilated LV, EF of 30-35%, severely calcified cusps of AV, severe aortic stenosis, grossly dilated LA. Pt to have outpatient CABG/ AVR w/ Dr. Sherman in 06/2024. Bella draining well, last exchanged 05/14. Review of Systems: +per HPI Physical Exam: Vitals: 06/03/24 1138 BP: 118/58 Pulse: 71 Resp: Temp: SpO2: 97% NCAT NAD RRR : bella clear Radiology: Reviewed, per HPI Procedure: 16 F coude exchanged in sterile fashion, 10 cc in balloon Assessment: Mayank Hurley, 79 year old male with PMH of pLAD bifurcation stenosis, HFrEF, severe AV stenosis, BPH s/p TURP in 2017 with retention now with indwelling bella, CT estimate of prostate 126 cc with plans for holep. Admitted for: 05/30/24 pt went for L/RHC and was found to have severe pLAD/D1 bifurcation stenosis. CTS was consulted for AVR/CABG eval. Final read of CT thorax demonstrated ascending aortic aneurysm of 4.8 cm. TTE 05/31/24 demonstrated severely dilated LV, EF of 30-35%, severely calcified cusps of AV, severe aortic stenosis, grossly dilated LA. Pt to have outpatient CABG/ AVR w/ Dr. Sherman in 06/2024. Bella draining well, last exchanged 05/14. Exchanged today Recommendations: -obtain urine culture -needs CABG prior to HOLEP, not cleared for HOLEP at this time, overall low risk of postop aortic valve infection risk from urology standpoint, continue indwelling bella for the time being with regular exchanges monthly until HOLEP can be performed safely -will schedule for follow up in urology clinic with Dr. Nicole in the future Discussed with Dr. Nicole. Loc Joshi MD, MPH Urology PGY-5 ENT SAFETY OFFICER Associated attestation - [place] Nicole MD - 06/04/2024 12:01 PM PATIENT SAFETY OFFICER Agree with note and plan as outlined by Dr. Adi Nicole MD 06/04/2024 12:01 PM UROLOGY [facility] 2024-06-02 10:17:00 Associated Order(s): CONSULT ADULT PHYSICAL THERAPY Patient agreeable to working with physical therapy. Patient semireclining in bed, Spouse present. Recommend nursing staff utilize ind to safely assist patient with mobility out of the bed or chair. PHYSICAL THERAPY EVALUATION Consult received, chart reviewed and evaluation complete this date. Patient is referred to PT for evaluation and treatment. Patient is a 79 year old male who presents to hospital for Syncope and collapse [R55] . Discharge Recommendations: Therapy Needs and Potential: Patient without any skilled PT needs at this time. Challenges to Home Transition: increased risk of falls Equipment recommendations: no device Current Functional Status and/or Treatment: AM-PAC 6 Clicks (Raw Score 0=Dependent, 24=Independent; Low function Raw Score 0= Dependent, 32=Independent): Raw Score - Basic Mobility : 24 T-Scale Score - Basic Mobility : 57.68 Bed Mobility: Reclined to sitting: Independent Sitting balance Excellent Scooting to edge of bed: Independent Dizziness No Transfers: sit-stand: Independent Stand pivot transfer: Independent Static/dynamic standing balance: Good Sit<>stand from multiple surfaces 0 LOB/instability Extra time after transitions incorporated to account for reported minimal dizziness, resolves in ~20 secs Dizziness see above Ambulation: Assisted patient with ambulation as follows: 300+ feet using no device and Independent. Patient presenting with Step-through gait pattern. Instructed patient in directional changes and head movements in all planes during gait trial resulting in 0 instability and 0 LOB. Stairs: assisted patient with gait up and down 5 steps using right side rail, left side rail with Independent. Assessed HR throughout eval 88-94 bpm during ambulation to include stair navigation Pt incorporates simulated stepping over obstacles, dual tasking with conversation during gait, bilateral turns and abrupt start stops with 0 gait deficits. Dizziness No Therapeutic exercise: patient educated in Fall prevention, Positioning, and Safety awareness. Functional Outcome Measures: (Values within the past 12 hours) Tinetti Gait Score- # / 12 Initiation of gait: No hesitancy Step length: On both sides, swing foot passes stance foot Foot clearance: Both feet completely clear floor Step Symmetry: Step lengths equal Step continuity: Steps appear continuous Path: Straight without AD Trunk: No sway, no flexion, no use of arms, no use of AD Walking: Heels almost touching Tinetti Gait Score: 12 Tinetti Gait Score Interpretation: >= 7 - Low risk for falls After session, patient semireclining in bed and Heels offloaded? No: not required as patient is alert and oriented, as well as exhibits sufficient LE strength and ability to move/reposition LEs/heels throughout the day, Spouse present. Call button provided. PLAN OF CARE: PT signs off. See below for complete details. Admit Date: 05/28/2024 Hospital Diagnosis:Syncope and collapse [R55] PT Diagnosis: Weakness and Vertigo/dizziness Weight Bearing Precaution: NA General Precautions: PPE used:Gloves, General, Fall, Lines/Tubes,Bella catheter, IV LUE, dialysis catheter Bracing/Cast present or required:N/A PMH: Past Medical History: Diagnosis Date BPH (benign prostatic hyperplasia) Erectile dysfunction GERD (gastroesophageal reflux disease) HTN (hypertension) PSH: History reviewed. No pertinent surgical history. PRIOR LIVING SITUATION: lives with their family and in a house, Stairs with right side rail, left side rail Ramp access DME: No device Prior level of Mobility: community ambulation, house hold ambulation Suspected ischemic or hemorraghic stroke:No Subjective: Patient reports he is feeling well with only minimal dizziness during transfers, has been independently moving in his room Patient/Family Goals: return home prior to next surgery Patient/Family verbalizes understanding of condition: Yes PAIN: denies pain before and after session COMMUNICATION Primary Language: [place] Able to Verbalize needs: Yes Vision:good; no issues reported Hearing:good; no issues reported ORIENTATION/COGNITION: Oriented to: person, place, date/time, and situation Awake: Yes Alert: Yes Dizzy: Yes see above Follows Commands: Yes 1-Step Yes Multi-Step Yes Inconsistent: No NEUROLOGICAL Light Touch: within functional limits bilateral LE, Heel to castro: wfl Tone: wfl BALANCE: Sitting: Static: Good Dynamic: Good Standing: Static: Good Dynamic: Good RANGE OF MOTION: within functional limits bilateral LE, STRENGTH: 4/5 (Good), bilateral LE ENDURANCE: Good, Room air SKIN INTEGRITY: intact, No erythema, edema near IV site, see nursing notes for details PROBLEM LIST: Decreased strength and Decreased endurance ASSESSMENT: Patient is a 79 year old male seen secondary to the above listed diagnosis. No further inpatient PT needs identified at this time. Rehabilitation Potential: excellent Goals: The following goals are to maximize independence and safety with functional mobility to eventually return to prior living situation and prior functional status. Defer as no PT needs. Treatment Plan: Discharge from PT , Gait training on stairs, Equipment needs assessment, and Safety education, patient/caregiver education PATIENT EDUCATION: Patient provided with preferred teaching of verbal information and demonstration on role of PT, plan of care, . Shows readiness to learn. Verbal instruction and Demonstration teaching provided. Individual is able to read and verbalizes understanding of teaching provided and accurately returns demonstration of skill. Total Time Tx Codes in Minutes: 10 min Total Treatment Time in Minutes: 35 min Alberto Luque PT, DPT Rehabilitation Services ENT SAFETY OFFICER Alberto Luque PT [facility] 2024-05-31 12:06:00 Associated Order(s): CONSULT ADULT OCCUPATIONAL THERAPY OT GENERAL EVALUATION Consult received via abcdexperts, EMR reviewed and evaluation completed 05/31/24. Patient referred to occupational therapy for evaluation and treatment secondary to syncope and collapse. Patient agreeable to participate in occupational therapy. Patient found semireclining in bed, Spouse present. Session interrupted partway by cardiac team to address potential surgical options/concerns. Discharge Recommendations: Therapy Needs and Potential:Not applicable as no further skilled acute care OT needs at this time. Challenges to Home Transition:- Requires physical assistance for BADLS - Requires physical assistance for IADLS - Requires supervision or verbal cues for BADLS - Requires supervision or verbal cues for IADLS - Limited caregiver availability - Increased risk of falls Equipment Recommendations:Shower chair and Grab bars (non-suction) PLAN OF CARE: Discharge from OT services Precautions: Weight bearing status: NA General: PPE Utilized: Gloves, Fall, and Bella Bracing: N/A Subjective: Pt semi-reclining in bed with spouse reclining in bedside chair. Pt awaiting direction from physician. Current Occupational Performance and/or Treatment: AM-PAC 6 Clicks (Raw Score 0=Dependent, 24=Independent; Low function Raw Score 0= Dependent, 32=Independent): Raw Score - Daily Activity: 19 T-Scale Score - Daily Activity: 40.22 Feeding: Independent, pt ate lunch while sitting upright in bedside chair. Grooming: Independent, pt washed his hands while standing at sink. Bathing: NT, educated pt on use of shower chair to prevent falls and conserve energy in the shower. Pt stated they have suction cup grab bars and was educated on proper cleaning 1xmonth to ensure secure suction to shower wall. Pt/spouse encouraged to look into permanent grab bars. UB Dressing: Independent, pt donned robe while sitting EOB. LB Dressing: Supervision, pt demonstrated functional ROM to don/doff socks while sitting EOB. Pt educated on avoiding bending down towards feet to decrease pressure against chest. Toilet Transfer: Supervision, pt descended/ascended using grab bar for assist. Toileting Hygiene: Total Assistance, bella in place (neurogenic bladder); pt states he usually straight caths in home environment. Functional Mobility: HOB elevated; supine<>sit Independent, sit<>stand Supervision, ambulation <>bathroom without assistive device. Patient/caregiver educated on: Adaptive equipment , ADL training, Energy conservation (handout issued/reviewed), Fall prevention (handout issued/reviewed), Positioning, and Role of OT Patient left sitting upright in bedside chair with call robert in reach. Spouse present. Please, see full evaluation below for more detail. OT EVALUATION: 79 year old male Admit date: 05/28/2024 Date of onset: 05/28/2024 Admit Diagnosis: Syncope and collapse [R55] OT Diagnosis: Impaired BADL independence, Impaired IADL independence, Weakness, Decreased endurance, and Impaired self-care mobility PMH: Past Medical History: Diagnosis Date BPH (benign prostatic hyperplasia) Erectile dysfunction GERD (gastroesophageal reflux disease) HTN (hypertension) PSH: History reviewed. No pertinent surgical history. PAIN: Denies pain before and after session. OCCUPATIONAL ROLES/HOME ENVIRONMENT: Home environment: Lives with spouse, elevated Single story home, Stairs, and Ramp. Spouse can provide supervision but will be limited in ability to assist physically. 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 Function prior to admission: Household ambulation, Community ambulation, Independent with BADLs, and Independent with IADLs Suspected ischemic or hemorraghic stroke patient: No Equipment prior to admission: Suction cup Grab bars PERFORMANCE SKILLS/FACTORS: UE Muscle Tone: bilateral WNL UE ROM: bilateral AROM WFL UE Strength: GAURAV UE 4/5 Hand dominance: right Dexterity/Coordination: bilateral Intact Endurance - Sitting: Good Standing: Good Sitting Balance - Static: Good Dynamic: Good Standing: Balance - Static Good Dynamic: Good Dizziness: No Skin Integrity: No breakdown noted Sensation: Patient denies numbness and tingling. Oral Motor: WFL Communication: Able to verbalize needs Yes Other: N/A Vision: WFL Yes Other: glasses or contacts, reading glasses Hearing: hard of hearing (R>L) COGNITION: Orientation: NT; no concerns at this time Follows Commands: 1-step Yes Multi-step NT Inconsistencies No Safety Awareness/Judgment: Good PROBLEM LIST: Decreased independence with ADL and Decreased strength/endurance for functional activity REHAB POTENTIAL/PROGNOSIS: good PATIENT/FAMILY GOALS: To be able to have best opportunity to extend life. TREATMENT/INTERVENTION PLAN: Discharge from OT PATIENT-FAMILY TEACHING Patient and Significant other provided with preferred teaching of verbal information, written information, and demonstration on Adaptive equipment , ADL training, Energy conservation (handout issued/reviewed), Fall prevention (handout issued/reviewed), Positioning, and Role of OT. Shows readiness to learn. Verbal instruction, Written material, and Demonstration teaching provided. Individual verbalizes understanding of teaching provided. COSMO Fernandez, MOT Total Timed Treatment Codes: 8 Min Total Treatment Time: 33 Min Patient Complexity Level Moderate - An occupational therapy evaluation of moderate complexity was completed using the above tests and measures. The following information was obtained: An occupational profile and medical and therapy history, including an expanded review of medical and/or therapy records and additional review of physical, cognitive, or psychosocial history related to current functional performance, Various standardized and non-standardized assessments were used to identify at least 3-5 performance deficits related to physical, cognitive, or psychosocial skills that result in activity limitations and/or participation restrictions, and Clinical decision making of moderate analytic complexity, which includes an analysis of the occupational profile, analysis of data from detailed assessment(s), and consideration of several treatment options. Patient may present with comorbidities that affect occupational performance. Minimal to moderate modification of tasks or assistance (e.g., physical or verbal) with assessment(s) is necessary to enable patient to complete evaluation component. A Gonzales OT [facility] 2024-05-30 11:57:35 Associated Order(s): CONSULT CARDIOTHORACIC SURGERY Images from the original note were not included. Cardiothoracic Surgery Consult Reason for consultation: Moderate Aortic valve stenosis, severe aortic valve regurgitation, ascending aortic aneurysm (4.8cm) and coronary angiogram finding of severe proximal LAD/D1 bifurcation stenosis. Date of Service: 05/30/2024 Requesting Physician: Tena Ramírez MD IDENTIFYING DATA Patient name: Mayank Hurley : 1945 Primary care physician: Lilliam Crowley HISTORY OF PRESENT ILLNESS We are asked to render an opinion regarding Mayank Hurley, a 79 year old male PMH BPH s/p TURP (2016), history of BPH induced urinary retention, history of BPH induced B/L renal hydronephrosis causing ESRD requiring hemodialysis (for about 8 months in 2017 after TRUP and restarted hemodialysis in 04/2024 for recurrent urinary obstruction due to enlarging prostrate), CAD, HFrEF (LVEF 35-40% on TTE 05/2024) brought in by EMS on 05/28/2024 after syncopal episode . Workup in ER revealed Pro-BNP 14,400, troponin I 0.011, urinary retention. HPI per son, , and the patient: The patient went unconscious while resting on a porch on 05/28/2024. and daughter saw the patient also stopped breathing so they started CPR but did not know how to check for pulses. The patient regained consciousness shortly after the CPR was started and stayed conscious till EMS arrived scene. There was no medication or shock or CPR delivered by EMS and there was no evidence of stroke noted per EMS assessment. Per son, the patient was doing well after TURP in 2016 with regained renal functions and stopped hemodialysis after eight months on hemodialysis. The patient did not have urinary retention or obstruction, has had based line creatinine of 3.xx. The patient was doing well until the beginning of 04/2024 that the patient started having shortness of breath, intermittent chest pain, and worsening swelling of both lower extremities. The worsening of those symptoms in addition to his weight gain of 45 lbs prompted the patient to follow up with his hydraulics engineer. The patient was hospitalized after CT A/P on 04/27/2024 revealed left renal hydronephrosis, moderate right pleural effusion, mild left pleural effusion, bladder distention, enlarge prostate, .." for aggressive fluid removal and placed on hemodialysis. Followed up echo on 04/28/2024 revealed "LVEF 35-40%, severely dilated LV with increased wall thickness, moderate to severe aortic valve regurgitation, moderate aortic valve stenosis with aortic valve mean gradient 20.3 mmHg, and ascending aortic aneurysm at 4.8cm" The patient was discharged from the hospital with hemodialysis and scheduled to have more prostate tissue surgically removed on 06/14/2024. Off note- Per chart review, the patient's echo on 12/04/2014 revealed "LVEF 55-60%, impaired diastolic function, mild LV dilatation, mild aortic stenosis, mild aortic insufficiency, mild dilation of the aortic root" Per son, the patient had followed up ultrasound of the aorta in 2017 which revealed no evidence of aneurysm and no aortic valve problem" The patient was readmitted on 05/28/2024 for syncopal episode which per son, it was likely due to hypotension. The patient reported lightheadedness with position changes since he started taking entresto but he never fainted till [place]. The lightheadedness lasted seconds and resolved after he stood still for a few minutes each time he stood up. Per , his home BP before taking entresto ranges 100 to low 110's/48-62 max for the diastolic readings. They did not check his BP after he took entresto. The patient underwent coronary angiogram on 05/30/2024 which revealed severe proximal LAD/D1 bifurcation stenosis (70%) and mild elevated pulmonary pressures (30/7 mmHg, mean PA 17mmHg). The patient lives with his , independent of ADL's, was active at base line, denies cigarette smoke but rarely smokes cigar (last cigar was six months ago), occasionally drinks two beer or wine daily for 4-5 years but has stopped since 04/23/2024. Denies history of illicit drug use and is a full resuscitation. CTS is consulted for CABG and AVR. CURRENT MEDICATIONS & ALLERGIES Allergies: Allergies Allergen Reactions Diltiazem Rash Keflex [Cephalexin] Rash Medications prior to Admission: No current facility-administered medications on file prior to encounter. Current Outpatient Medications on File Prior to Encounter Medication Sig Dispense Refill carvediloL 3.125 mg tablet Take 1 tablet by mouth in the morning and 1 tablet in the evening. Take with meals. Do all this for 30 days. 60 tablet 0 furosemide 80 mg tablet Take 1 tablet by mouth every morning and evening for 30 days. 60 tablet 0 pantoprazole 40 mg EC tablet Take 1 tablet by mouth in the morning for 30 days. 30 tablet 0 sacubitriL-valsartan 24-26 mg tablet Take 1 tablet by mouth in the morning and 1 tablet in the evening. Do all this for 30 days. 60 tablet 0 tamsulosin 0.4 mg 24 hr capsule Take 1 capsule by mouth in the morning for 30 days. 30 capsule 0 aspirin 81 mg chewable tablet Take 1 tablet by mouth in the morning. vitamin B-12 (VITAMIN B-12) 250 mcg tablet Take 1 Tab by mouth daily. 90 Tab 3 fluconazole 100 mg tablet Take 1 tablet by mouth in the morning. mupirocin 2 % ointment Apply to area(s). levothyroxine 25 mcg tablet Take 1 tablet by mouth every morning for 30 days. 30 tablet 0 REVIEW OF SYSTEMS Reviewed previous ROS from history and physical dated 05/28/2024, with patient and his son and there are no changes. HISTORIES PAST MEDICAL HISTORY Past Medical History: Diagnosis Date BPH (benign prostatic hyperplasia) Erectile dysfunction GERD (gastroesophageal reflux disease) HTN (hypertension) PAST SURGICAL HISTORY History reviewed. No pertinent surgical history. SOCIAL HISTORY Social History Socioeconomic History Marital status: Spouse name: Not on file Number of children: Not on file Years of education: Not on file Highest education level: Not on file Occupational History Not on file Tobacco Use Smoking status: Never Smokeless tobacco: Never Substance and Sexual Activity Alcohol use: Yes Alcohol/week: 8.3 - 16.7 standard drinks of alcohol Types: 10 - 20 drink(s) per week Comment: daily Drug use: No Sexual activity: Not on file Other Topics Concern Not on file Social History Narrative Not on file Social Determinants of Health Financial Resource Strain: Not on file Food Insecurity: No Food Insecurity (05/28/2024) NCSS - Food Insecurity Worried About Running Out of Food in the Last Year: No Ran Out of Food in the Last Year: No Transportation Needs: No Transportation Needs (05/28/2024) NCSS - Transportation Lack of Transportation: No Physical Activity: Not on file Stress: Not on file Social Connections: Not on file Housing Stability: Not At Risk (05/28/2024) NCSS - Housing/Utilities Has Housing: Yes Worried About Losing Housing: No Unable to Get Utilities: No FAMILY HISTORY Family History Problem Relation Age of Onset No Significant Medical Problems NoFHx PHYSICAL EXAMINATION Vitals - 05/30/24 0810 Weight: 94 kg (207 lb 3.7 oz) Height: Vitals: 05/30/24 1030 05/30/24 1100 05/30/24 1118 05/30/24 1120 BP: 125/62 137/65 130/67 135/64 BP Location: Patient Position: Pulse: 79 81 85 79 Resp: Temp: TempSrc: SpO2: Weight: Height: General: Patient is alert and oriented x4 and in no acute distress. Head: Head is normocephalic, atraumatic. Eyes: conjunctivae and sclerae normal Mouth/Throat-moist mucus membranes with clear oropharynx. Neck Jugular veins: negative Respiratory: Respiratory effort: breathing comfortably Auscultations of lungs:clear to auscultation Cardiovascular: Chest - auscultation heart: The heart rate is normal with regular rhythm, and without rubs, or gallops., murmur(s)- grade 1/6 and systolic Carotid Arteries (Bruits): normal - no bruits Abdominal Aorta: not examined Pedal Pulses: Palpable bilaterally and normal Extremities (lower): edema - none. Veins - no varicosities bilaterally. GastrointestinalI: Abdomen- palpation: soft, non tender Skin Inspection - phlebitis, pustules: negative Neurologic: Orientation: awake and alert Mood and Affect: appropriate Muscular: Kyphosis/Scoliosis: not examined Muscle strength/gait: upper and lower extremities equal and normal bilaterally MEDICAL DECISION MAKING LABS Labs: Chemistry 05/30/2024 CBC 05/30/2024 133 (L) 106 44 (H) 88 5.99 10.3 (L) 207 4.6 18 (L) 3.41 (H) 30.3 (L) eGFR: 17.5 Date: 05/30/2024 ANC: 3.29 Date: 05/30/2024 LFTs 05/28/2024 Coags AST: 29 AP: 41 Prot: 6.6 Ca: 7.9 (L) PT: 11.4 Date: 05/28/2024 ALT: 21 T Gaurav: 0.4 Alb: 3.9 PTT: 24 (L) Date: 05/28/2024 PO4: 5.2 (H) Date: 05/30/2024 INR: 1.0 Date: 05/28/2024 Lipid Panel & Cardiac Endocrine & Vitamins Chol: 68 (L) Date: 04/24/2024 A1C: 4.7 Date: 04/23/2024 LDL: 30 Date: 04/24/2024 B12: - Date: - Tri Date: 04/24/2024 D-25: - Date: - HDL: 24 (L) Date: 04/24/2024 TSH: 8.58 (H) Date: 05/28/2024 pBNP: 14,400 (H) Date: 05/28/2024 FT4: 1.03 Date: 05/29/2024 The labs are acceptable given the patient's condition and do not require intervention or further study. I have reviewed the patient's labs. All labs are within normal limits. RADIOLOGY CT Scan Head and cervical spine: 05/28/2024 IMPRESSION 1. No acute intracranial abnormality. 2. No acute fracture or traumatic malalignment of the cervical spine. Preliminary Report Dictated by Resident: Ariel Zaidi MD., have reviewed this study and agree with the above report. Impression 1. No acute intracranial abnormality. 2. No acute fracture or traumatic malalignment of the cervical spine. Preliminary Report Dictated by Resident: Ariel Zaidi MD., have reviewed this study and agree with the above report. Chest X-ray: 05/28/2024 FINDINGS: Right sided IJ catheter with the tip terminating in the distal SVC. Lungs: The lungs are well-expanded and clear. There is some mild left basilar atelectasis. No focal opacities. No pleural abnormalities are detected. Heart/Mediastinum: The cardiomediastinal silhouette remains enlarged in size. Aortic knob calcification is noted. Musculoskeletal: No acute osseous abnormality. IMPRESSION No acute cardiopulmonary abnormality. Preliminary Report Dictated by Resident: Keith Zaidi MD., have reviewed this study and agree with the above report. Pulmonary Function Test: N/A EK05/28/2024 Wet Read Stephanie Ghosh MD 05/28/2024 4:10 PM EKG-12 Lead ROUTINE ONCE Date/Time: 05/28/2024 4:01 PM Performed by: Stephanie Ghosh MD Authorized by: Stephanie Ghosh MD ECG interpreted by ED Physician in the absence of a hydraulics engineer: yes Previous ECG: Previous ECG: Compared to current Comparison ECG info: Compared to EKG of 05/06/2024 no significant changes Interpretation: Interpretation: non-specific Rate: ECG rate: 76 ECG rate assessment: normal Rhythm: Rhythm: sinus rhythm Ectopy: Ectopy: none QRS: QRS axis: Left (-57) QRS conduction: RBBB ST segments: ST segments: Non-specific T waves: T waves: non-specific Comments: Qtc 517 Interpreted by Stephanie Ghosh MD on 05/28/2024 4:10 PM Carotid Duplex: N/A Cardiac Cath/Coronary Arteriography Data: 05/30/2024 Findings: Coronary dominance: right Left main: moderate calcification mild LI LAD: large vessel pLAD/D1 bifurcation severe stenosis 70% LAD/70% D1, m-d LAD mild LI LCX: large mild LI, OM1-2-3 mild LI RCA: dominant vessel, mild LI, RPDA mild LI, RPLB1-2-3-4 small mild LI LVEDP: 10 mmHg L SCa patent, SANCHES patent RHC: RA mean 1 mmHg RV 28/1 mmHg PA 30/7 mmHg (mean PA 17 mmHg) PCWP mean 15 mmHg CO 8.02 L/min (Lizet's method) CI 3.65 L/min/m2 (Lizet's method) CO 7.45 L/min (Thermodilution technique) CI 3.39 L/min/m2 (Thermodilution technique) Sats on room air PA sat: 73% RA sat: 67% Echocardiograms: 04/28/2024 Findings Left Ventricle Left ventricle is severely dilated. Increased wall thickness. Severely increased ventricular mass. There is eccentric hypertrophy. Moderate global hypokinesis present. Moderately reduced systolic function with a visually estimated EF of 35 - 40%. EF by 2D Graham biplane is 36%. There is pseudonormal diastolic dysfunction. Elevated left ventricular filling pressure. Right Ventricle Right ventricle size is normal. Reduced systolic function. TAPSE is 1.52 cm. Left Atrium Left atrium is severely dilated. Right Atrium Right atrium is dilated. IVC/SVC IVC diameter is greater than 21 mm and decreases less than 50% during inspiration; therefore the estimated right atrial pressure is elevated (~15 mmHg). Mitral Valve Mitral valve structure is normal. Moderate mitral annular calcification. Trace transvalvular regurgitation. Tricuspid Valve Tricuspid valve structure is normal. Mild transvalvular regurgitation. Right ventricular systolic pressure is 35-40 mmHg. RA pressure is 10-15 mmHg. Aortic Valve Not well visualized. Moderately thickened cusps. Moderate to severe transvalvular regurgitation with a centrally directed jet. Consistent with moderate aortic stenosis (hyperdynamic flow status increaseing estimated gradients/velocities). AV mean gradient is 20.3 mmHg. AV peak velocity is 316.0 cm/s. Pulmonic Valve Not well visualized. Trace transvalvular regurgitation. No stenosis. Ascending Aorta Moderately enlarged ascending aorta (48 mm). Pericardium The pericardium is normal. No pericardial effusion. Interpretation Summary Show Result Comparison Left Ventricle: Left ventricle is severely dilated. Increased wall thickness. Severely increased ventricular mass. There is eccentric hypertrophy. Moderate global hypokinesis present. Moderately reduced systolic function with a visually estimated EF of 35 - 40%. EF by 2D Graham biplane is 36%. There is pseudonormal diastolic dysfunction. Elevated left ventricular filling pressure. Aortic Valve: Moderately thickened cusps. Moderate to severe transvalvular regurgitation with a centrally directed jet. Consistent with moderate aortic stenosis (hyperdynamic flow status increaseing estimated gradients/velocities). AV mean gradient is 20.3 mmHg. AV peak velocity is 316.0 cm/s. Aorta: Moderately enlarged ascending aorta (48 mm). Right Ventricle: Reduced systolic function. TAPSE is 1.52 cm. Tricuspid Valve: Mild transvalvular regurgitation. Right ventricular systolic pressure is 35-40 mmHg. RA pressure is 10-15 mmHg. IVC/SVC: IVC diameter is greater than 21 mm and decreases less than 50% during inspiration; therefore the estimated right atrial pressure is elevated (~15 mmHg). Echo 12/04/2024 STS Risk Calculation: DIAGNOSIS / ASSESSMENT Mayank Hurley is a 79 year old male with PMH BPH s/p TURP (2016), history of BPH induced urinary retention, history of BPH induced B/L renal hydronephrosis causing ESRD requiring hemodialysis (for about 8 months in 2017 after TRUP and restarted hemodialysis in 04/2024 for recurrent urinary obstruction due to enlarging prostrate), CAD, HFrEF (LVEF 35-40% on TTE 05/2024) brought in by EMS on 05/28/2024 after syncopal episode . Works up reveal Moderate Aortic valve stenosis, severe aortic valve regurgitation, ascending aortic aneurysm (4.8cm) and coronary angiogram finding of severe proximal LAD/D1 bifurcation stenosis. The patient is currently on hemodialysis due to BPH induced uinary obstruction causing hydronephrosis and affecting renal functions (base line CKD 4 with serum creatinine 3.xx) with scheduled to have prostate tissue surgically removed on 06/14/2024. MANAGEMENT OPTIONS & PLAN Case discussed with Dr. Lopez CTS fellow and Dr. Sherman. Our final recommendation to be followed. [facility] [phone] 60 min spent on this visit. The time spent for patient care includes: Performing a medically appropriate examination and/or evaluation, Counseling and educating the patient/family/caregiver, and Documenting clinical information in the electronic or other health record. ENT SAFETY OFFICER Associated attestation - Laura Sherman MD - 05/30/2024 9:39 PM PATIENT SAFETY OFFICER Agree with Alycia Govea's plan. Need a non-contrast CT scan to assess his ascending aorta. Long-term, a prosthetic valve in a dialysis patient will have a much higher risk of prosthetic valve infection than it would in the general population. SL CUTTER GAS-FAMILY MIDLEVEL PROVIDER [facility] 2024-05-30 11:02:28 Associated Order(s): CONSULT PS PASTORAL CARE Mission Assessment Specialist saw patient in response to a consult order. Patient was out of the room having dialysis and is scheduled for a procedure later today, but follow up might be good. Patient's was present in the room. She told the medical narrative and said they have been 60 years. Mission Assessment Specialist offered her compassionate presence, listening, validation of her andrez, and prayer. Mission Assessment Specialist also prayed with the patient via phone while he was in dialysis. Mission Assessment Specialist received some Zirtual from patient's for distribution. There is a good spiritual support system here and good internal resources for the journey. Susan Garay [facility] Mission Assessment Specialist (office) [phone] ENT SAFETY OFFICER Susan Garay [facility] 2024-05-29 14:54:54 Associated Order(s): CONSULT NEPHROLOGY; CONSULT NEPHROLOGY Nephrology Consult Note Patient Name: Mayank Hurley Admission Date: 05/28/2024 Hospital Length of Stay: 0 days Code Status: Full Code Attending Provider: Bessy Weber MD Primary Care Provider: Lilliam Crowley Chief Complaint: Trauma Subjective: Brief HPI: Mayank Hurley is a 79 year old male who has a past medical history of BPH (benign prostatic hyperplasia), Erectile dysfunction, GERD (gastroesophageal reflux disease), and HTN (hypertension). He presented to [facility] on 05/28/[facility]24 with a primary complaint of syncope. Patient had syncopal episode at home. Patient dialyzes via a permacath last HD was on Monday. He denies uremic symptomology, chest pain, sob, nausea, and vomiting. Patient family history is not on file. Patient has no past surgical history on file. Patient is allergic to diltiazem and keflex [cephalexin]. Patient reports that he has never smoked. He has never used smokeless tobacco. He reports current alcohol use of about 8.3 - 16.7 standard drinks of alcohol per week. He reports that he does not use drugs. Review of Systems: The remainder of the 14 point ROS is noncontributory or negative unless mentioned/reviewed above. Objective: Vital Signs (Most Recent): Body mass index is 26.89 kg/m?. Weight: 95 kg (209 lb 6.4 oz) Vital Signs (24h Range): Temp: [36.2 ?C (97.1 ?F)-36.9 ?C (98.4 ?F)] 36.7 ?C (98.1 ?F) Pulse: [76-98] 79 Resp: [17-29] 18 BP: (90-125)/(48-63) 111/52 Intake/Output Summary (Last 24 hours) at 05/29/2024 1455 Last data filed at 05/29/2024 0413 Gross per 24 hour Intake -- Output 850 ml Net -850 ml Physical Examination: General: Well developed, well nourished, no acute respiratory distress Head: Normocephalic, atraumatic Eyes: PERRL, EOMI, anicteric sclera Throat: No posterior pharyngeal erythema or exudate, no tonsillar exudate Neck: supple, normal ROM, no JVD CVS: RRR, S1 and S2 normal, no murmurs, no added heart sounds, rubs, gallops, regular peripheral pulses, and no peripheral edema Resp: Lungs clear to auscultation bilaterally, no wheezes, rales, or rhonci GI: Abdomen soft, non-tender, non-distended, normoactive bowel sounds MSK: Full range of motion, no obvious deformities Skin: No rashes, ulcers, erythema Neuro: Alert and oriented x3, No focal neuro deficits, CNII-XII grossly intact Psych: Appropriate mood and affect Access: [facility] Laboratory: Recent Labs 05/01/24 0412 05/02/24 0429 05/06/24 1317 05/28/24 1432 05/29/24 0436 WBC 6.51 6.92 6.99 6.03 7.71 HGB 12.2 12.0* 11.9* 10.3* 10.3* HCT 37.5* 36.3* 35.7* 31.8* 30.7* PLT 166 155 192 225 207 Recent Labs 04/23/24 1100 04/24/24 0558 04/25/24 0356 04/27/24 0337 04/28/24 0510 04/29/24 0112 04/29/24 2215 04/30/24 0407 05/01/24 0412 05/02/24 0429 05/06/24 1317 05/28/24 1432 05/29/24 0436 NA 131* 130* < > 135 135 132* < > 134* 131* 131* 135 136 134* K 4.0 3.6 < > 4.2 3.4* 3.9 < > 3.9 3.8 4.2 4.8 4.4 4.3 CL 100 101 < > 103 107 98 < > 101 98 99 102 103 104 TCO2 23 20* < > 25 24 27 < > 24 25 25 24 21* 19* BUN 31* 37* < > 26* 26* 37* < > 35* 43* 33* 34* 33* 41* CREAT 3.61* 3.55* < > 2.52* 2.50* 3.39* < > 3.03* 3.66* 2.98* 2.89* 3.39* 3.42* GLU 90 84 < > 92 87 100 < > 85 98 94 89 94 92 CA 8.4* 8.0* < > 8.8 7.8* 8.8 < > 8.9 8.8 9.1 8.7 8.2* 8.2* MG 1.7 1.7 < > 1.8 1.6* 2.5* -- 2.0 -- 1.7 -- 2.2 2.1 PHOS -- 4.6 -- 2.6 2.8 3.3 -- -- -- -- -- -- -- ALB 3.7 -- -- -- -- 3.4* -- -- -- -- -- 3.9 -- < > = values in this interval not displayed. Recent Labs 04/23/24 1600 04/25/24225 TPROU -- 17 CREATU 25.6 27.3 PROCRTUR -- 0.6 There are no current results on file for these tests and/or test for 1 year. There are no current results on file for these tests and/or test for 1 year. Recent Labs 04/24/24 0558 04/26/24 0326 05/02/24 0429 05/06/24 1317 05/28/24 1432 NTBNP 40,500* 35,900* 12,400* 18,200* 14,400* Recent Labs 04/23/24 1600 04/25/24225 TPROU -- 17 CREATU 25.6 27.3 PROCRTUR -- 0.6 Recent Labs 05/28/24 1432 05/29/24 0436 IRON -- 72 FERRITIN 262.0 -- FESAT -- 29 Other Results: Estimated Creatinine Clearance: 20 mL/min (A) (by C-G formula based on SCr of 3.42 mg/dL (H)). Assessment & Plan: ESRD on Dialysis TTS - Access: Permacath - HD tomorrow for metabolic clearance and volume maintenance - Check BMP, Phosphorous on HD days - Strict I&O's, Daily weights, avoid nephrotoxins/contrast studies, and renally dose medications Anemia in Chronic Kidney Disease -Hemoglobin: Target 10-11 g/dL, Hb at 10.3 g/dL, -obtain iron studies and ferritin level Secondary hyperparathyroidism (of renal origin) MBD Hyperphosphatemia - obtain intact pth - trend phos on dialysis days - phos binders TIDAC if needed for goal phos < 5 Hemodynamics Hypertension -HD Electrolyte Derangements Wnl -HD Acid/Base Metabolic Acidosis -HD Patient was seen, examined and discussed with attending Dr. Santosh May MD Nephrology and Hypertension Fellow PGY-IV 05/29/2024 14:55 Faculty Note: I have personally seen and examined this patient with Dr. May on 05/29/2024. I personally participated in the decision-making process as relates to this patient's medical condition. Please refer to the progress note for details of the medical care provided. Ori Frost MD ENT SAFETY OFFICER -NEPHROLOGY STAFF [facility] 2024-05-29 11:10:12 Associated Order(s): CONSULT CARDIOLOGY Cardiology Consult Note Date of Service: 05/29/2024 11:10 Time: 11:10 AM Reason for consult: ERNST evaluation History of Present Illness: Mayank Hurley is a 79 year old male with PMHx of GERD, BPH w/ renal failure now on HD via permcath and with chronic indwelling bella, ascending aortic aneurysm, HFrEF 35-40%, moderate Aortic stenosis admitted after 1x episode of syncope and following apnea episodes. Pt's daughter reports that this morning pt began to "shake" while standing and his eyes were "glossed over", his left arm curled up, and then he fell down from a standing position. Pt's daughter reported that she helped him to the ground and he began to behave normally. About 5 mins later, she noticed that he was unresponsive and apneic. No pulse was checked and pt's daughter and state they were not sure how to give CPR but started rescue breaths and chest compressions. Pt's family states they are unsure how long he was unresponsive for but think it was roughly 10 minutes. EMS was called and pt became responsive and orientated but family is unsure how long the duration between unresponsiveness and responsiveness was. The patient has been following with outside hydraulics engineer but things have been progressing slow for them, there was a plan for outpatient cath but did not happen yet. Telemetry review w/ 1st degree block. EKG NSR. Subjective Past Medical History: Diagnosis Date BPH (benign prostatic hyperplasia) Erectile dysfunction GERD (gastroesophageal reflux disease) HTN (hypertension) History reviewed. No pertinent surgical history. Family History Problem Relation Age of Onset No Significant Medical Problems NoFHx Social History Socioeconomic History Marital status: Tobacco Use Smoking status: Never Smokeless tobacco: Never Substance and Sexual Activity Alcohol use: Yes Alcohol/week: 8.3 - 16.7 standard drinks of alcohol Types: 10 - 20 drink(s) per week Comment: daily Drug use: No Social Determinants of Health Food Insecurity: No Food Insecurity (05/28/2024) NCSS - Food Insecurity Worried About Running Out of Food in the Last Year: No Ran Out of Food in the Last Year: No Transportation Needs: No Transportation Needs (05/28/2024) NCSS - Transportation Lack of Transportation: No Housing Stability: Not At Risk (05/28/2024) NCSS - Housing/Utilities Has Housing: Yes Worried About Losing Housing: No Unable to Get Utilities: No Allergies Allergen Reactions Diltiazem Rash Keflex [Cephalexin] Rash Prior to Admission medications Medication Sig Start Date End Date Taking? Authorizing Provider carvediloL 3.125 mg tablet Take 1 tablet by mouth in the morning and 1 tablet in the evening. Take with meals. Do all this for 30 days. 05/02/24 06/01/24 Yes Enedina Paredes FNP furosemide 80 mg tablet Take 1 tablet by mouth every morning and evening for 30 days. 05/02/24 06/01/24 Yes Enedina Paredes FNP pantoprazole 40 mg EC tablet Take 1 tablet by mouth in the morning for 30 days. 05/03/24 06/02/24 Yes Enedina Paredes FNP sacubitriL-valsartan 24-26 mg tablet Take 1 tablet by mouth in the morning and 1 tablet in the evening. Do all this for 30 days. 05/02/24 06/01/24 Yes Enedina Paredes FNP tamsulosin 0.4 mg 24 hr capsule Take 1 capsule by mouth in the morning for 30 days. 05/03/24 06/02/24 Yes Enedina Paredes FNP aspirin 81 mg chewable tablet Take 1 tablet by mouth in the morning. Yes Doctor Unassigned, [place] vitamin B-12 (VITAMIN B-12) 250 mcg tablet Take 1 Tab by mouth daily. 11/20/12 Yes Betsy Menchaca MD fluconazole 100 mg tablet Take 1 tablet by mouth in the morning. 05/16/24 Doctor Unassigned, [place] mupirocin 2 % ointment Apply to area(s). 05/17/24 Doctor Unassigned, [place] levothyroxine 25 mcg tablet Take 1 tablet by mouth every morning for 30 days. 05/03/24 06/02/24 Enedina Paredes, [place] Current Facility-Administered Medications: polyethylene glycol 3350 powder 17 g, 17 g, Oral, DAILY, Wilfredo Ayala DO sennosides (SENOKOT) tablet 8.6 mg, 8.6 mg, Oral, DAILY, Wilfredo Ayala DO acetaminophen (TYLENOL) tablet 650 mg, 650 mg, Oral, Q6HPRN, Steven Tyler MD aspirin chewable tablet 81 mg, 81 mg, Oral, DAILY, Steven Tyler MD, 81 mg at 05/29/24 0815 heparin (porcine) injection 5,000 Units, 5,000 Units, Subcutaneous, BID, Steven Tyler MD, 5,000 Units at 05/29/24 0815 HYDROcodone-acetaminophen (NORCO 5) tablet 1 tablet, 1 tablet, Oral, Q6HPRN, Steven Tyler MD levothyroxine (SYNTHROID) tablet 25 mcg, 25 mcg, Oral, QAM-0600, Soca Mila Cheng DO, 25 mcg at 05/29/24 0728 ondansetron (ZOFRAN (PF)) injection 4 mg, 4 mg, Slow IV Push, Q6HPRN, Steven Tyler MD tamsulosin (FLOMAX) capsule 0.4 mg, 0.4 mg, Oral, DAILY, Steven Tyler MD, 0.4 mg at 05/29/24 0815 Objective Physical Examination: Temp: [36.2 ?C (97.1 ?F)-36.9 ?C (98.4 ?F)] Heart Rate (monitor): [78-93] Pulse: [76-98] Resp: [13-29] BP: (90-125)/(47-63) MAP (mmHg): [62-84] Intake/Output Summary (Last 24 hours) at 05/29/2024 1110 Last data filed at 05/29/2024 0413 Gross per 24 hour Intake 200 ml Output 950 ml Net -750 ml Labs/Imaging/Pathology - Reviewed EKG SR Echocardiography : 04/26/2024 Findings Left Ventricle Left ventricle is severely dilated. Increased wall thickness. Severely increased ventricular mass. There is eccentric hypertrophy. Moderate global hypokinesis present. Moderately reduced systolic function with a visually estimated EF of 35 - 40%. EF by 2D Graham biplane is 36%. There is pseudonormal diastolic dysfunction. Elevated left ventricular filling pressure. Right Ventricle Right ventricle size is normal. Reduced systolic function. TAPSE is 1.52 cm. Left Atrium Left atrium is severely dilated. Right Atrium Right atrium is dilated. IVC/SVC IVC diameter is greater than 21 mm and decreases less than 50% during inspiration; therefore the estimated right atrial pressure is elevated (~15 mmHg). Mitral Valve Mitral valve structure is normal. Moderate mitral annular calcification. Trace transvalvular regurgitation. Tricuspid Valve Tricuspid valve structure is normal. Mild transvalvular regurgitation. Right ventricular systolic pressure is 35-40 mmHg. RA pressure is 10-15 mmHg. Aortic Valve Not well visualized. Moderately thickened cusps. Moderate to severe transvalvular regurgitation with a centrally directed jet. Consistent with moderate aortic stenosis (hyperdynamic flow status increaseing estimated gradients/velocities). AV mean gradient is 20.3 mmHg. AV peak velocity is 316.0 cm/s. Pulmonic Valve Not well visualized. Trace transvalvular regurgitation. No stenosis. Ascending Aorta Moderately enlarged ascending aorta (48 mm). Pericardium The pericardium is normal. No pericardial effusion. Assessment/Plan: Mayank Hurley is a 79 year old male admitted with: Syncope Severe AR TAA 4.1 / 4.7 cm RV Systolic Dysfunction HFrEF 35-40% (de meghann as of 05/06/24) Moderate Aortic Stenosis BPH w/ chronic bella c/b renal failure on HD via permcath Recent reports of hematuria The patient is presenting with syncope, so far no evidence for cardiac syncope but he has been also being worked up for severe AR. Diagnostic LHC and RHC tomorrow, NPO after midnight Please consult CTS for TAA + AR HD per nephrology Telemetry monitoring Recs are discussed with patients son upon their request Thank you for your consult. Discussed case with Dr. Monson . Tena Ramírez MD Cardiovascular Fellow PGY-4 ENT SAFETY OFFICER Associated attestation - Stephy Monson MD - 05/29/2024 7:19 PM PATIENT SAFETY OFFICER I personally saw and examined the patient on the date as specified in the note, reviewed labs, imaging, and procedure results, and I agree with Dr. Ramírez's note. I actively participated in the decision-making process. Plan for diagnostic coronary angiography + RHC tomorrow. The medical impression and management recommendations were explained to the patient and his , they verbalized understanding and agreed to proceed with the plan as outlined above. Please see the fellow's note for additional details. Stephy Monson MD [employer] Department of Internal Medicine Division of Cardiovascular Medicine [facility] 2024-05-01 12:39:39 Associated Order(s): CONSULT UROLOGY UROLOGY CONSULTATION NOTE Requesting Provider: Dr. Aguirre Date of Service: 05/01/2024 Chief Complaint: hematuria and obstructive uropathy History of Present Illness: We were asked to see this patient to give my opinion regarding Mayank Hurley, 79 year old, male, PMH of as below who presents with excerebration of heart failure, NGHIA on CKD requiring dialysis , hx of chronic urine retention , primary team consulted urology 04/29/2024 oncall faculty recommended gregory, noted to have persistent hematuria and has been been on hepatin Histories: Past Medical History: Diagnosis Date BPH (benign prostatic hyperplasia) Erectile dysfunction GERD (gastroesophageal reflux disease) HTN (hypertension) History reviewed. No pertinent surgical history. Family History Problem Relation Age of Onset No Significant Medical Problems NoFHx Social History Socioeconomic History Marital status: Tobacco Use Smoking status: Never Smokeless tobacco: Never Substance and Sexual Activity Alcohol use: Yes Alcohol/week: 8.3 - 16.7 standard drinks of alcohol Types: 10 - 20 drink(s) per week Comment: daily Drug use: No Social Determinants of Health Food Insecurity: No Food Insecurity (04/24/2024) NCSS - Food Insecurity Worried About Running Out of Food in the Last Year: No Ran Out of Food in the Last Year: No Transportation Needs: No Transportation Needs (04/24/2024) NCSS - Transportation Lack of Transportation: No Housing Stability: Not At Risk (04/24/2024) NCSS - Housing/Utilities Has Housing: Yes Worried About Losing Housing: No Unable to Get Utilities: No Allergies: Allergies Allergen Reactions Diltiazem Rash Keflex [Cephalexin] Rash Review of Systems: Reviewed previous ROS from Constitutional: negative Eyes: negative Ears, nose, mouth, throat: negative Cardiovascular: negative Respiratory: negative Gastrointestinal: negative Genitourinary: (+) per HPI Musculoskeletal: negative Integumentary: negative Neurological: negative Psychiatric: negative Endocrine: negative Hematologic/Lymphatic: negative Allergic/Immunologic: negative, allergies listed above Physical Exam: Blood pressure 133/68, pulse 81, temperature 36.6 ?C (97.9 ?F), temperature source Temporal Artery, resp. rate 18, height 1.88 m (6' 2"), weight 96.5 kg (212 lb 11.9 oz), SpO2 97%. Constitutional: no acute distress Eyes: normal external eye, conjunctiva and sclera normal Ears, nose, mouth, throat: normocephalic, moist mucous membranes Cardiovascular: regular rate and rhythm, peripheral pulses 2+ in bilateral upper extremities Respiratory: respirations unlabored on room air Gastrointestinal: soft, non-distended, non tender Genitourinary: circumcised, normal phallus, bilateral descended testes, indwelling bella light hematuria Rectal: deferred Musculoskeletal: no clubbing, cyanosis or edema Skin: no rashes Neurologic: alert and oriented x3 Psychiatric: appropriate mood and affect Hematologic: no bruising Laboratory: Latest Reference Range & Units 04/27/24 03:37 04/28/24 05:10 04/29/24 01:12 04/29/24 08:55 04/29/24 22:15 04/30/24 04:07 05/01/24 04:12 WBC x10 3 4.20 - 10.70 10*3/?L 5.26 4.78 5.84 6.86 6.51 RBC x10 6 4.26 - 5.52 10*6/?L 4.00 (L) 4.16 (L) 4.33 4.29 4.39 HGB 12.2 - 16.4 g/dL 11.5 (L) 11.7 (L) 12.3 12.0 (L) 12.2 HCT 38.4 - 49.3 % 34.3 (L) 35.6 (L) 36.6 (L) 36.6 (L) 37.5 (L) MCV 81.7 - 95.6 fL 85.8 85.6 84.5 85.3 85.4 MCH 26.1 - 32.7 pg 28.8 28.1 28.4 28.0 27.8 MCHC 31.2 - 35.0 g/dL 33.5 32.9 33.6 32.8 32.5 RDW-SD 38.5 - 51.6 fL 44.9 46.0 44.2 44.7 43.9 RDW-CV 12.1 - 15.4 % 14.4 14.6 14.4 14.4 14.2 PLT x10 3 150 - 328 10*3/?L 161 148 (L) 165 157 166 MPV 9.8 - 13.0 fL 10.5 11.2 10.8 10.7 11.1 NRBC /100 WBC 0.0 - 10.0 /100 WBCs 0.0 0.0 0.0 0.0 0.0 NRBC x10 3 10*3/?L <0.01 <0.01 <0.01 <0.01 <0.01 GRAN MAT (NEUT) % % 53.2 43.2 50.2 54.9 54.3 IMM GRAN % % 0.20 0.20 0.20 0.30 0.30 LYMPH% % 20.3 24.7 20.7 16.8 18.0 MONO % % 12.4 14.6 11.8 12.8 13.1 EOS % % 13.3 16.7 16.6 14.6 13.5 BASO % % 0.6 0.6 0.5 0.6 0.8 GRAN MAT x10 3 (ANC) 1.99 - 6.95 10*3/uL 2.80 2.06 2.93 3.77 3.54 IMM GRAN x10 3 0.00 - 0.06 10*3/uL <0.03 <0.03 <0.03 <0.03 <0.03 LYMPH x10 3 1.09 - 3.23 10*3/uL 1.07 (L) 1.18 1.21 1.15 1.17 MONO x10 3 0.36 - 1.02 10*3/uL 0.65 0.70 0.69 0.88 0.85 EOS x10 3 0.06 - 0.53 10*3/uL 0.70 (H) 0.80 (H) 0.97 (H) 1.00 (H) 0.88 (H) BASO x10 3 0.01 - 0.09 10*3/uL 0.03 0.03 0.03 0.04 0.05 NA 135 - 145 mmol/L 135 135 132 (L) 130 (L) 134 (L) 131 (L) K 3.5 - 5.0 mmol/L 4.2 3.4 (L) 3.9 4.3 3.9 3.8 CL 98 - 108 mmol/L 103 107 98 100 101 98 CO2 TOTAL 23 - 31 mmol/L 25 24 27 26 24 25 AGAP 2 - 16 7 4 7 4 9 8 BUN 7 - 23 mg/dL 26 (H) 26 (H) 37 (H) 35 (H) 35 (H) 43 (H) GLUCOSE 70 - 110 mg/dL 92 87 100 100 85 98 CREATININE 0.60 - 1.25 mg/dL 2.52 (H) 2.50 (H) 3.39 (H) 2.65 (H) 3.03 (H) 3.66 (H) eGFR mL/min/1.73m2 25.1 25.3 17.6 23.6 20.1 16.0 TOTAL BILI 0.1 - 1.1 mg/dL 0.5 CALCIUM 8.6 - 10.6 mg/dL 8.8 7.8 (L) 8.8 8.9 8.9 8.8 PHOSPHORUS 2.5 - 5.0 mg/dL 2.6 2.8 3.3 MAGNESIUM 1.7 - 2.4 mg/dL 1.8 1.6 (L) 2.5 (H) 2.0 T PROTEIN 6.3 - 8.2 g/dL 6.0 (L) ALBUMIN 3.5 - 5.0 g/dL 3.4 (L) HYAL CAST <=2 LPF 1 ALK PHOS 34 - 122 U/L 44 ALTv 5 - 50 U/L 29 AST(SGOT) 13 - 40 U/L 31 (L): Data is abnormally low (H): Data is abnormally high Radiology: I have reviewed all recent and most relevant imaging. Narrative & Impression CT ABDOMEN PELVIS WO CONTRAST Indication: Kidney failure, acute NGHIA , HUBBARD , obstructive uropathy Comparison: None. RL: Ordering Clinician: GENESIS LANGLEY Technique: Axial CT images of the abdomen and pelvis were performed without IV contrast. Sagittal and coronal reformats were created. Dose reduction techniques were used (ALARA). Technical Quality: Adequate Discussion: Lines/Devices: None. Chest/Vessels: Severe coronary artery disease. Small left pleural effusion and moderate right pleural effusion with dependent consolidation. Moderate atherosclerotic changes throughout the aorta. Organs: No acute liver pathology. No gallbladder inflammation. The pancreas is normal. No splenic masses. 1.5 cm left adrenal nodule measuring 31 Hounsfield units nonspecific. : Bilateral [employer] renal atrophy. More severe on the left side than the right side. Moderate left hydronephrosis and left hydroureter without an obstructing stone. Distended bladder. Enlarged prostate measuring 6.1 x 6.1 x 5.7 cm. The bladder is normal. GI: Diverticulosis without diverticulitis. No small bowel obstruction. Normal appendix. Misc.: Subcentimeter lymph nodes are below size criteria. Trace amount of free fluid deep within the pelvis. Skeleton: No acute osseous pathology. IMPRESSION Impression: 1. Left-sided hydronephrosis and hydroureter without obstructing stone. 2. Moderate right pleural effusion and mild left pleural effusion. 3. Distended bladder and enlarged prostate. 4. Diverticulosis without diverticulitis. 5. Severe coronary artery disease. 6. Nonspecific left adrenal nodule. Adrenal Lesion Recommendations: Benign Features 1-4cm: Current recommendations for incidentally detected adrenal mass 1-4cm in a patient with no prior history of malignancy and benign imaging features(homogenous, smooth margins, no evidence of necrosis), presume the lesion is benign and consider 12 month follow up with CT or MR. If stable for 1 year, no additional follow up recommended. (Managing Incidental Findings on Abdominal CT: White Paper of the ACR Incidental Findings Committee;Journal of the [employer] Volume 7, Issue 10, Pages 026-953, March 2010). Procedure: None Assessment/Recommendations: 79 year old male Principal Problem: BAILEY (dyspnea on exertion) Active Problems: Essential hypertension, benign BPH (benign prostatic hyperplasia) Stage 4 chronic kidney disease Acute on chronic systolic and diastolic heart failure, NYHA class 3 Aneurysm of ascending aorta Elevated brain natriuretic peptide (BNP) level Pulmonary hypertension VHD (valvular heart disease) Gross hematuria, seems to be related to decompression of chronic urine retention and exacerbated by heparin CT 04/27/2024, distended bladder and enlarged prostate 180 cc I recommend 3 way bella 22 Fr and CBI Trend CBC If persistent by tomorrow , [facility] Plan discussed as above with patient and primary team Kingston Nicole MD [facility] 2024-04-29 11:00:11 Associated Order(s): CONSULT NETWORK CONTRACTOR-ADULT Submitted referral to Angeline Taylor for placement at [facility]. Awaiting chair time. Angeline [facility]: [phone], fax: [phone] LILA Angela Master Scheduler - Care Management [facility] [phone] [email or web address] 2024-04-23 22:25:32 Associated Order(s): CONSULT [facility]ARDIOLOGY [facility] Cardiology Consult Note Patient: Mayank Hurley Date of : 1945 Date of service: 04/23/2024 Primary Care Physician: Lilliam Crowley CHIEF COMPLAINT: Chief Complaint Patient presents with Shortness of Breath Weakness HISTORY OF PRESENT ILLNESS: Mayank Hurley is a 79 year old male presented to the ER for evaluation for BAILEY. History from patient. Pertinent cardiac related history reviewed from chart Presented to the ER for further evaluation of underlying worsening shortness of breath. Patient was feeling lethargic and fatigue sleeping more than usual. Noted to have evidence of orthopnea. Bilateral pitting pedal edema noted. Weight gain noted. Dizziness noted. BAILEY NYHA class III-IV. No chest pain history noted. Recently reestablished care with Dr. Sharp on 18 April. Noted to have worsening aortic regurgitation along with LV dysfunction with ascending aortic aneurysm. Dr. Sharp recommended to reestablish care with nephrology to obtain clearance proceeding with the angiogram for further assessment of underlying severe aortic regurgitation. In the interim due to worsening symptoms he decided to come to the ER for further evaluation. NT-proBNP noted to be at 43,000. Reports compliance with carvedilol and Lasix for the last few days. No chest pain at rest. PAST MEDICAL HISTORY Past Medical History: Diagnosis Date BPH (benign prostatic hyperplasia) Erectile dysfunction GERD (gastroesophageal reflux disease) HTN (hypertension) History reviewed. No pertinent surgical history. Family History Problem Relation Age of Onset No Significant Medical Problems NoFHx SOCIAL HISTORY Social History Socioeconomic History Marital status: Tobacco Use Smoking status: Never Smokeless tobacco: Never Substance and Sexual Activity Alcohol use: Yes Alcohol/week: 8.3 - 16.7 standard drinks of alcohol Types: 10 - 20 drink(s) per week Comment: daily Drug use: No ALLERGIES Allergies Allergen Reactions Diltiazem Rash Keflex [Cephalexin] Rash MEDICATIONS Current Discharge Medication List STOP taking these medications carvediloL 6.25 mg tablet Comments: Reason for Stopping: furosemide 40 mg tablet Comments: Reason for Stopping: tamsulosin (FLOMAX) 0.4 mg 24 hr capsule Comments: Reason for Stopping: CIALIS 5 mg tablet Comments: Reason for Stopping: hydrochlorothiazide (ESIDRIX) 25 mg tablet Comments: Reason for Stopping: lisinopril (PRINIVIL,ZESTRIL) 20 mg tablet Comments: Reason for Stopping: triamcinolone acetonide (KENALOG) 0.1 % ointment Comments: Reason for Stopping: triamcinolone acetonide (TRIDERM) 0.1 % cream Comments: Reason for Stopping: omeprazole (PRILOSEC) 40 mg capsule Comments: Reason for Stopping: vitamin B-12 (VITAMIN B-12) 250 mcg tablet Comments: Reason for Stopping: Current Facility-Administered Medications: acetaminophen (TYLENOL) tablet 650 mg, 650 mg, Oral, Q6HPRN, Eddi Aguirre MD amLODIPine (NORVASC) tablet 5 mg, 5 mg, Oral, DAILY, Eddi Aguirre MD, 5 mg at 04/23/24 1346 carvediloL (COREG) tablet 3.125 mg, 3.125 mg, Oral, BID MEALS, Eddi Aguirre MD, 3.125 mg at 04/23/24 1841 furosemide (LASIX) injection 40 mg, 40 mg, Slow IV Push, BIDPC, Eddi Aguirre MD, 40 mg at 04/23/24 1841 heparin (porcine) injection 5,000 Units, 5,000 Units, Subcutaneous, Q8H, Eddi Aguirre MD, 5,000 Units at 04/23/240 ondansetron (ZOFRAN (PF)) injection 4 mg, 4 mg, Slow IV Push, Q6HPRN, Eddi Aguirre MD [START ON 04/24/2024] tamsulosin (FLOMAX) capsule 0.4 mg, 0.4 mg, Oral, DAILY, Eddi Aguirre MD REVIEW OF SYSTEMS: Comprehensive 10-system review was conducted and were negative except for what's noted in the HPI. The following systems were reviewed: Constitutional, cardiovascular, respiratory, gastrointestinal, genitourinary, musculoskeletal, neurologic, psychiatric, endocrinological, and hematological. PHYSICAL EXAMINATION: Vitals: 04/23/24 1353 04/23/24 1440 04/23/24 1950 04/23/242016 BP: 116/52 123/57 Pulse: 63 65 65 Resp: 18 Temp: 36.2 ?C (97.1 ?F) TempSrc: SpO2: 96% 96% 94% Weight: 113.4 kg (250 lb) Height: 1.88 m (6' 2") General: no apparent distress HEENT: normocephalic atraumatic Neck: supple, no lymphadenopathy, no bruits, no JVD Lungs: clear to auscultation bilaterally. No wheezes or rhonchi. No increased work of breathing. Cardio: Regular rate and rhythm, S1&S2 normal, no murmurs, rubs or gallops Abdomen: soft; non-tender; non-distended; normoactive bowel sounds. : not examined Rectal: not examined Extremities: no clubbing, cyanosis. +++ edema. Skin: no rashes, no visible lesions. Neuro: no gross focal deficits LABS - Reviewed pertinent labs as below: CBC BMP PT/INR WBC x10 3 (/uL) Date Value 07/09/2013 7.7 WBC (10*3/?L) Date Value 04/23/2024 7.10 NA Date Value 04/23/2024 131 mmol/L (L) 10/16/2014 135 MMOL/L No results found for: "PT" PLT x10 3 (/uL) Date Value 07/09/2013 254 PLT (10*3/?L) Date Value 04/23/2024 176 K Date Value 04/23/2024 4.0 mmol/L 10/16/2014 4.1 MMOL/L PT INR (no units) Date Value 06/16/2011 1.0 HGB Date Value 04/23/2024 12.8 g/dL 07/09/2013 14.3 G/DL BUN Date Value 04/23/2024 31 mg/dL (H) 10/16/2014 13 MG/DL HCT (%) Date Value 04/23/2024 39.2 07/09/2013 42.1 CREATININE Date Value 04/23/2024 3.61 mg/dL (H) 10/16/2014 0.91 MG/DL LIPID PROFILE GLUCOSE Date Value 04/23/2024 90 mg/dL 10/16/2014 95 MG/DL CHOL (MG/DL) Date Value 10/16/2014 183 TSH LDL CHOL (MG/DL) Date Value 10/16/2014 118 TSH Date Value 04/23/2024 13.80 mIU/L (H) 09/12/2011 1.40 uIU/mL CARDIAC ENZYMES HDL CHOL (MG/DL) Date Value 10/16/2014 41 No results found for: "CK" TRIG (MG/DL) Date Value 10/16/2014 122 LFTs No results found for: "CKMB" AST(SGOT) (U/L) Date Value 04/23/2024 22 10/16/2014 72 (H) TROPONIN I (ng/mL) Date Value 04/23/2024 0.031 ALT(SGPT) (U/L) Date Value 10/16/2014 96 (H) ALTv (U/L) Date Value 04/23/2024 22 No results found for: "BNP" LDL CHOL (MG/DL) Date Value 10/16/2014 118 Recent Labs 04/23/24 1100 TROPNI 0.031 There are no current results on file for these tests and/or test for 1 year. LDL CHOL (MG/DL) Date Value 10/16/2014 118 NT-proBNP (pg/mL) Date Value 04/23/2024 43,600 (H) ASSESSMENT/PLAN Principal Problem: BAILEY (dyspnea on exertion) Active Problems: Essential hypertension, benign BPH (benign prostatic hyperplasia) Stage 4 chronic kidney disease Acute on chronic systolic and diastolic heart failure, NYHA class 3 Aneurysm of ascending aorta Elevated brain natriuretic peptide (BNP) level BAILEY NYHA class III-IV: Clinical findings consistent with volume overload in the setting of underlying bilateral pitting pedal edema, orthopnea, elevated BNP significantly. Chest x-ray dated 04/23/2024 shows presence of underlying pulm vascular congestion/pleural effusion. Volume overload in the setting of underlying severe aortic regurgitation, LV dysfunction along with worsening CKD. Recommended aggressive diuresis. Currently home dose of Lasix p.o. 40 mg daily noted. Recommended increasing IV Lasix to 40 3 times daily. Recommend nephrology evaluation for aggressive volume management. Discussed with the family members regarding the need need for dialysis for aggressive volume reduction. Recommended serial troponins. Continue with telemetry monitoring. Fluid restriction less than 1.5 L. Recent Labs 04/23/24 1100 TROPNI 0.031 NT-proBNP (pg/mL) Date Value 04/23/2024 43,600 (H) Severe aortic regurgitation: Outside echocardiogram done in primary hydraulics engineer office dated 04/18/2024 reviewed shows TAA noted to be 4.1/4.7 cm. Severe arctic regurgitation noted. LVEF noted to be 4045%. Hypokinesis noted PA pressure noted to be more than 60. The changes are new compared to the previous echocardiogram done in 2018. Holter monitor dated 04/18/2024 shows paroxysmal SVT noted AAA screen less than 3 cm. Discussed with the primary cardiology team with Dr. Sharp over the phone. There is a concern regarding compliance with medication. Recommended to optimize the heart failure management and volume management. Once able to lay flat then we will plan for outpatient coronary angiogram with right and left heart cath for further assessment prior to undergoing CT surgery evaluation. It is also likely that with volume management the aortic regurgitation may get better. He will consider inpatient transfer based upon the the clinical scenario. Elevated NT-proBNP: Acute on chronic systolic diastolic heart failure. Outside echocardiogram done in primary hydraulics engineer office dated 04/18/2024 reviewed shows TAA noted to be 4.1/4.7 cm. Severe arctic regurgitation noted. LVEF noted to be 4045%. Hypokinesis noted PA pressure noted to be more than 60. The changes are new compared to the previous echocardiogram done in 2018. Home dose of p.o. Lasix 40 daily noted. Recommended IV Lasix 40 3 times daily. Volume management as per nephrology team. Continue with carvedilol 3.125 twice daily to be continued from home. Ascending aorta aneurysm: Will need further follow-up. Continue with carvedilol 3.125 twice daily. Pulmonary hypertension: The setting of her lung volume overload. Plan for volume management as noted above. CKD4: Previous creatinine noted to be at 4 currently improving. Recommend to discuss with nephrology team for initiating dialysis for adequate volume management. Rx plan discussed with the patient/family members at bedside including physician son over the phone. Primary hydraulics engineer: Dr. Sharp. Discussed with him over the phone. Total Visit Time: 60 mins The total Visit time for today's visit with Mayank Hurley encompassed 60 minutes. Time was spent reviewing the chart before, during and after the visit, reviewing laboratory results, taking interval history, performing the documented physical examination, completing and "cleaning up" the electronic medical record as well as addressing any questions and concerns. The time spent for patient care includes: PreCharting (eg, review of tests, notes, etc.), Obtaining and/or reviewing separately obtained history (Care Everywhere or paper records), Counseling and educating the patient/family/caregiver, Ordering medications, tests, or procedures, Ordering referrals and/or communicating with other health adult day care worker (when not separately reported), Documenting clinical information in the electronic or other health record, and Independently interpreting results (not separately reported) and/or communicating results to the patient/family/caregiver. Keep up with basic health maintenance including an annual physical examination with your primary physician, appropriate vaccinations (influenza, pneumonia, new shingles vaccination), and other appropriate testing (e.g. EGD, colonoscopy etc). This report was dictated using Jirafe and is subject to voice recognition errors. Please excuse any unusual inaccuracies. My diagnostic impression and treatment plans were discussed at length with the patient and family member present. All side effects as well as drug-drug interactions and risks discussed at length. Ample opportunity was offered and encouraged to ask questions during this visit and patient appreciated the answers given by me and verbzalised statisfcation in the answers given. Thank you for allowing us to participate in the care of Mayank Hurley. If you have any questions or concerns please feel free to call our office at [phone]. I would be happy to be of further assistance for Mayank Hurley wellbeing. Voice recognition software has been used to create portions of this document. An attempt to proofread has been made to minimize errors. Please do not hesitate to call with any questions. Lizzie Alvarez MD 04/23/2024 6:26 PM [employer]anner Machine Tender, Division of Cardiology [facility] - Health History and Physical Notes Date/Time Note Provider Source 2024-07-19 06:42:48 Images from the original note were not included. CT Surgery H & P: IDENTIFYING DATA Patient name: Mayank Hurley : 1945 Primary care physician: Lilliam Crowley HISTORY OF PRESENT ILLNESS We are asked to render an opinion regarding Mayank Hurley, a 79 year old male PMH BPH s/p TURP (2016), history of BPH induced urinary retention, history of BPH induced B/L renal hydronephrosis causing ESRD requiring hemodialysis (for about 8 months in 2017 after TRUP and restarted hemodialysis in 04/2024 for recurrent urinary obstruction due to enlarging prostrate), CAD, HFrEF (LVEF 35-40% on TTE 05/2024) brought in by EMS on 05/28/2024 after syncopal episode . Workup in ER revealed Pro-BNP 14,400, troponin I 0.011, urinary retention. HPI per son, , and the patient: The patient went unconscious while resting on a porch on 05/28/2024. and daughter saw the patient also stopped breathing so they started CPR but did not know how to check for pulses. The patient regained consciousness shortly after the CPR was started and stayed conscious till EMS arrived scene. There was no medication or shock or CPR delivered by EMS and there was no evidence of stroke noted per EMS assessment. Per son, the patient was doing well after TURP in 2017 with regained renal functions and stopped hemodialysis after eight months on hemodialysis. The patient did not have urinary retention or obstruction, has had based line creatinine of 3.xx. The patient was doing well until the beginning of 04/2024 that the patient started having shortness of breath, intermittent chest pain, and worsening swelling of both lower extremities. The worsening of those symptoms in addition to his weight gain of 45 lbs prompted the patient to follow up with his hydraulics engineer. The patient was hospitalized after CT A/P on 04/27/2024 revealed left renal hydronephrosis, moderate right pleural effusion, mild left pleural effusion, bladder distention, enlarge prostate, .." for aggressive fluid removal and placed on hemodialysis. Followed up echo on 04/28/2024 revealed "LVEF 35-40%, severely dilated LV with increased wall thickness, moderate to severe aortic valve regurgitation, moderate aortic valve stenosis with aortic valve mean gradient 20.3 mmHg, and ascending aortic aneurysm at 4.8cm" The patient was discharged from the hospital with hemodialysis and scheduled to have more prostate tissue surgically removed on 06/14/2024. Off note- Per chart review, the patient's echo on 12/04/2014 revealed "LVEF 55-60%, impaired diastolic function, mild LV dilatation, mild aortic stenosis, mild aortic insufficiency, mild dilation of the aortic root" Per son, the patient had followed up ultrasound of the aorta in 2017 which revealed no evidence of aneurysm and no aortic valve problem" The patient was readmitted on 05/28/2024 for syncopal episode which per son, it was likely due to hypotension. The patient reported lightheadedness with position changes since he started taking entresto but he never fainted till [place]. The lightheadedness lasted seconds and resolved after he stood still for a few minutes each time he stood up. Per , his home BP before taking entresto ranges 100 to low 110's/48-62 max for the diastolic readings. They did not check his BP after he took entresto. The patient underwent coronary angiogram on 05/30/2024 which revealed severe proximal LAD/D1 bifurcation stenosis (70%) and mild elevated pulmonary pressures (30/7 mmHg, mean PA 17mmHg). The patient lives with his , independent of ADL's, was active at [employer], denies cigarette smoke but rarely smokes cigar (last cigar was six months ago), occasionally drinks two beer or wine daily for 4-5 years but has stopped since 04/23/2024. Denies history of illicit drug use and is a full resuscitation. CTS is consulted for CABG and AVR. CURRENT MEDICATIONS & ALLERGIES Allergies: Allergies Allergies Allergen Reactions Diltiazem Rash Keflex [Cephalexin] Rash Medications prior to Admission: Prior Meds No current facility-administered medications on file prior to encounter. Current Outpatient Medications on File Prior to Encounter Medication Sig Dispense Refill carvediloL 3.125 mg tablet Take 1 tablet by mouth in the morning and 1 tablet in the evening. Take with meals. Do all this for 30 days. 60 tablet 0 furosemide 80 mg tablet Take 1 tablet by mouth every morning and evening for 30 days. 60 tablet 0 pantoprazole 40 mg EC tablet Take 1 tablet by mouth in the morning for 30 days. 30 tablet 0 sacubitriL-valsartan 24-26 mg tablet Take 1 tablet by mouth in the morning and 1 tablet in the evening. Do all this for 30 days. 60 tablet 0 tamsulosin 0.4 mg 24 hr capsule Take 1 capsule by mouth in the morning for 30 days. 30 capsule 0 aspirin 81 mg chewable tablet Take 1 tablet by mouth in the morning. vitamin B-12 (VITAMIN B-12) 250 mcg tablet Take 1 Tab by mouth daily. 90 Tab 3 fluconazole 100 mg tablet Take 1 tablet by mouth in the morning. mupirocin 2 % ointment Apply to area(s). levothyroxine 25 mcg tablet Take 1 tablet by mouth every morning for 30 days. 30 tablet 0 REVIEW OF SYSTEMS Reviewed previous ROS from history and physical dated 05/28/2024, with patient and his son and there are no changes. HISTORIES PAST MEDICAL HISTORY Past Medical History Past Medical History: Diagnosis Date BPH (benign prostatic hyperplasia) Erectile dysfunction GERD (gastroesophageal reflux disease) HTN (hypertension) PAST SURGICAL HISTORY Past Surgical History History reviewed. No pertinent surgical history. SOCIAL HISTORY Social History Socioeconomic History Marital status: Spouse name: Not on file Number of children: Not on file Years of education: Not on file Highest education level: Not on file Occupational History Not on file Tobacco Use Smoking status: Never Smokeless tobacco: Never Substance and Sexual Activity Alcohol use: Yes Alcohol/week: 8.3 - 16.7 standard drinks of alcohol Types: 10 - 20 drink(s) per week Comment: daily Drug use: No Sexual activity: Not on file Other Topics Concern Not on file Social History Narrative Not on file Social Determinants of Health Financial Resource Strain: Not on file Food Insecurity: No Food Insecurity (05/28/2024) NCSS - Food Insecurity Worried About Running Out of Food in the Last Year: No Ran Out of Food in the Last Year: No Transportation Needs: No Transportation Needs (05/28/2024) NCSS - Transportation Lack of Transportation: No Physical Activity: Not on file Stress: Not on file Social Connections: Not on file Housing Stability: Not At Risk (05/28/2024) NCSS - Housing/Utilities Has Housing: Yes Worried About Losing Housing: No Unable to Get Utilities: No FAMILY HISTORY Family Hx Family History Problem Relation Age of Onset No Significant Medical Problems NoFHx PHYSICAL EXAMINATION Vitals - Vitals 05/30/24 0810 Weight: 94 kg (207 lb 3.7 oz) Height: Vitals Vitals: 05/30/24 1030 05/30/24 1100 05/30/24 1118 05/30/24 1120 BP: 125/62 137/65 130/67 135/64 BP Location: Patient Position: Pulse: 79 81 85 79 Resp: Temp: TempSrc: SpO2: Weight: Height: General: Patient is alert and oriented x4 and in no acute distress. Head: Head is normocephalic, atraumatic. Eyes: conjunctivae and sclerae normal Mouth/Throat-moist mucus membranes with clear oropharynx. Neck Jugular veins: negative Respiratory: Respiratory effort: breathing comfortably Auscultations of lungs:clear to auscultation Cardiovascular: Chest - auscultation heart: The heart rate is normal with regular rhythm, and without rubs, or gallops., murmur(s)- grade 1/6 and systolic Carotid Arteries (Bruits): normal - no bruits Abdominal Aorta: not examined Pedal Pulses: Palpable bilaterally and normal Extremities (lower): edema - none. Veins - no varicosities bilaterally. GastrointestinalI: Abdomen- palpation: soft, non tender Skin Inspection - phlebitis, pustules: negative Neurologic: Orientation: awake and alert Mood and Affect: appropriate Muscular: Kyphosis/Scoliosis: not examined Muscle strength/gait: upper and lower extremities equal and normal bilaterally MEDICAL DECISION MAKING LABS Labs: Chemistry 05/30/2024 CBC 05/30/2024 133 (L) 106 44 (H) 88 5.99 10.3 (L) 207 4.6 18 (L) 3.41 (H) 30.3 (L) eGFR: 17.5 Date: 05/30/2024 ANC: 3.29 Date: 05/30/2024 LFTs 05/28/2024 Coags AST: 29 AP: 41 Prot: 6.6 Ca: 7.9 (L) PT: 11.4 Date: 05/28/2024 ALT: 21 T Gaurav: 0.4 Alb: 3.9 PTT: 24 (L) Date: 05/28/2024 PO4: 5.2 (H) Date: 05/30/2024 INR: 1.0 Date: 05/28/2024 Lipid Panel & Cardiac Endocrine & Vitamins Chol: 68 (L) Date: 04/24/2024 A1C: 4.7 Date: 04/23/2024 LDL: 30 Date: 04/24/2024 B12: - Date: - Tri Date: 04/24/2024 D-25: - Date: - HDL: 24 (L) Date: 04/24/2024 TSH: 8.58 (H) Date: 05/28/2024 pBNP: 14,400 (H) Date: 05/28/2024 FT4: 1.03 Date: 05/29/2024 The labs are acceptable given the patient's condition and do not require intervention or further study. I have reviewed the patient's labs. All labs are within normal limits. RADIOLOGY CT Scan Head and cervical spine: 05/28/2024 IMPRESSION 1. No acute intracranial abnormality. 2. No acute fracture or traumatic malalignment of the cervical spine. Preliminary Report Dictated by Resident: Melsisa Shantell Ariel Patel MD., have reviewed this study and agree with the above report. Impression 1. No acute intracranial abnormality. 2. No acute fracture or traumatic malalignment of the cervical spine. Preliminary Report Dictated by Resident: Ariel Zaidi MD., have reviewed this study and agree with the above report. Chest X-ray: 05/28/2024 FINDINGS: Right sided IJ catheter with the tip terminating in the distal SVC. Lungs: The lungs are well-expanded and clear. There is some mild left basilar atelectasis. No focal opacities. No pleural abnormalities are detected. Heart/Mediastinum: The cardiomediastinal silhouette remains enlarged in size. Aortic knob calcification is noted. Musculoskeletal: No acute osseous abnormality. IMPRESSION No acute cardiopulmonary abnormality. Preliminary Report Dictated by Resident: Keith Zaidi MD., have reviewed this study and agree with the above report. Pulmonary Function Test: N/A EK05/28/2024 Wet Read Stephanie Ghosh MD 05/28/2024 4:10 PM EKG-12 Lead ROUTINE ONCE Date/Time: 05/28/2024 4:01 PM Performed by: Stephanie Ghosh MD Authorized by: Stephanie Ghosh MD ECG interpreted by ED Physician in the absence of a hydraulics engineer: yes Previous ECG: Previous ECG: Compared to current Comparison ECG info: Compared to EKG of 05/06/2024 no significant changes Interpretation: Interpretation: non-specific Rate: ECG rate: 76 ECG rate assessment: normal Rhythm: Rhythm: sinus rhythm Ectopy: Ectopy: none QRS: QRS axis: Left (-57) QRS conduction: RBBB ST segments: ST segments: Non-specific T waves: T waves: non-specific Comments: Qtc 517 Interpreted by Stephanie Ghosh MD on 05/28/2024 4:10 PM Carotid Duplex: N/A Cardiac Cath/Coronary Arteriography Data: 05/30/2024 Findings: Coronary dominance: right Left main: moderate calcification mild LI LAD: large vessel pLAD/D1 bifurcation severe stenosis 70% LAD/70% D1, m-d LAD mild LI LCX: large mild LI, OM1-2-3 mild LI RCA: dominant vessel, mild LI, RPDA mild LI, RPLB1-2-3-4 small mild LI LVEDP: 10 mmHg L SCa patent, SANCHES patent RHC: RA mean 1 mmHg RV 28/1 mmHg PA 30/7 mmHg (mean PA 17 mmHg) PCWP mean 15 mmHg CO 8.02 L/min (Lizet's method) CI 3.65 L/min/m2 (Lizet's method) CO 7.45 L/min (Thermodilution technique) CI 3.39 L/min/m2 (Thermodilution technique) Sats on room air PA sat: 73% RA sat: 67% Echocardiograms: 04/28/2024 Findings Left Ventricle Left ventricle is severely dilated. Increased wall thickness. Severely increased ventricular mass. There is eccentric hypertrophy. Moderate global hypokinesis present. Moderately reduced systolic function with a visually estimated EF of 35 - 40%. EF by 2D Graham biplane is 36%. There is pseudonormal diastolic dysfunction. Elevated left ventricular filling pressure. Right Ventricle Right ventricle size is normal. Reduced systolic function. TAPSE is 1.52 cm. Left Atrium Left atrium is severely dilated. Right Atrium Right atrium is dilated. IVC/SVC IVC diameter is greater than 21 mm and decreases less than 50% during inspiration; therefore the estimated right atrial pressure is elevated (~15 mmHg). Mitral Valve Mitral valve structure is normal. Moderate mitral annular calcification. Trace transvalvular regurgitation. Tricuspid Valve Tricuspid valve structure is normal. Mild transvalvular regurgitation. Right ventricular systolic pressure is 35-40 mmHg. RA pressure is 10-15 mmHg. Aortic Valve Not well visualized. Moderately thickened cusps. Moderate to severe transvalvular regurgitation with a centrally directed jet. Consistent with moderate aortic stenosis (hyperdynamic flow status increaseing estimated gradients/velocities). AV mean gradient is 20.3 mmHg. AV peak velocity is 316.0 cm/s. Pulmonic Valve Not well visualized. Trace transvalvular regurgitation. No stenosis. Ascending Aorta Moderately enlarged ascending aorta (48 mm). Pericardium The pericardium is normal. No pericardial effusion. Interpretation Summary Show Result Comparison Left Ventricle: Left ventricle is severely dilated. Increased wall thickness. Severely increased ventricular mass. There is eccentric hypertrophy. Moderate global hypokinesis present. Moderately reduced systolic function with a visually estimated EF of 35 - 40%. EF by 2D Graham biplane is 36%. There is pseudonormal diastolic dysfunction. Elevated left ventricular filling pressure. Aortic Valve: Moderately thickened cusps. Moderate to severe transvalvular regurgitation with a centrally directed jet. Consistent with moderate aortic stenosis (hyperdynamic flow status increaseing estimated gradients/velocities). AV mean gradient is 20.3 mmHg. AV peak velocity is 316.0 cm/s. Aorta: Moderately enlarged ascending aorta (48 mm). Right Ventricle: Reduced systolic function. TAPSE is 1.52 cm. Tricuspid Valve: Mild transvalvular regurgitation. Right ventricular systolic pressure is 35-40 mmHg. RA pressure is 10-15 mmHg. IVC/SVC: IVC diameter is greater than 21 mm and decreases less than 50% during inspiration; therefore the estimated right atrial pressure is elevated (~15 mmHg). Echo 12/04/2024 STS Risk Calculation: DIAGNOSIS / ASSESSMENT Mayank Hurley is a 79 year old male with PMH BPH s/p TURP (2016), history of BPH induced urinary retention, history of BPH induced B/L renal hydronephrosis causing ESRD requiring hemodialysis (for about 8 months in 2017 after TRUP and restarted hemodialysis in 04/2024 for recurrent urinary obstruction due to enlarging prostrate), CAD, HFrEF (LVEF 35-40% on TTE 05/2024) brought in by EMS on 05/28/2024 after syncopal episode . Works up reveal Moderate Aortic valve stenosis, severe aortic valve regurgitation, ascending aortic aneurysm (4.8cm) and coronary angiogram finding of severe proximal LAD/D1 bifurcation stenosis: - plan for CABG, AVR and ascending aortic aneurysm repair today - risks and benefits discussed and an informed consent done Fabian Chappell MD CT Surgery Fellow, PGY-7 ENT SAFETY OFFICER Associated attestation - Laura Sherman MD - 07/19/2024 6:46 AM PATIENT SAFETY OFFICER Agree with Dr. Chappell's plan. For tissue AVR, ascending aorta tube graft and CABG today. [facility] 2024-05-30 13:22:19 Pre-Procedure Sedation Evaluation H&P from 05/28 reviewed. No changes noted.. Allergies were reviewed. NPO Status Solids: >6 hours Clear liquids: >2 hours History History of anesthesia/sedation complications: No History of difficult airway: No History of neck problems, craniofacial abnormalities, head/neck surgery: No Increased risk for airway obstruction, sleep apnea, morbid obesity: No Focused Physical Exam Heart: documented in H&P Normal Lung: documented in H&P Normal Airway Mallampati: II (full visibility of soft palate and part of uvula) Mouth opening: Normal Range of motion neck: Normal Dentition: Normal Assessment: ASA 2 Plan: Moderate sedation The risks, benefits, and treatment options of sedation were discussed with the patient/guardian and they desire to proceed. The consent form was completed and signed. ENT SAFETY OFFICER Associated attestation - Myron Anderson MD - 05/30/2024 2:06 PM PATIENT SAFETY OFFICER I agree. CARDIOVASCULAR DISEASE [facility] 2024-05-28 16:33:19 MEDICINE [facility] H&P PCP: Lilliam Crowley Date of Service: 05/28/2024 CHIEF COMPLAINT: Syncope History of Present Illness Mayank Hurley is a 79 year old male with a PMH significant for ESRD on HD TThS, HTN, CAD, BPH c/b chronic urinary retention with indwelling bella, HFrEF, GERD, severe aortic regurgitation, and ascending aortic aneurysm who was admitted on 05/28/24 for syncope. Pt states that he does not remember the events that led to his syncopal episode so most of the HPI was obtained via family members. Pt's daughter reports that this morning pt began to "shake" while standing and his eyes were "glossed over", his left arm curled up, and then he fell down from a standing position. Pt's daughter reported that she helped him to the ground and he began to behave normally. About 5 mins later, she noticed that he was unresponsive and apneic. No pulse was checked and pt's daughter and state they were not sure how to give CPR but started rescue breaths and chest compressions. Pt's family states they are unsure how long he was unresponsive for but think it was roughly 10 minutes. EMS was called and pt became responsive and orientated but family is unsure how long the duration between unresponsiveness and responsiveness was. Pt reports feeling no prodromal episode prior to syncope. Pt does report intermittent dizziness previously but states no similar episodes like this previously. Currently, pt states he is doing well. Patient states no headaches, no chest pain, no SOB, no abdominal pain, no n/v/d, no dysuria, no numbness/tingling. Patient denies all other complaints and appears in no acute distress. Furthermore, Patient and family report recent infected PermCath that required replacement for which pt was initially started on Bactrim before transitioning to IV antibiotics. Family does not recall which antibiotics and they do not recall the name of the facility where treatment was obtained. Past surgical history: None Social history: Pt lives independently with his and is able to perform ADLs and IADLs Family history: Noncontributory ED/OSH course: Vitals: BP 113/47, P 81, RR 13, T 98.0F, SpO2 96% on RA Pertinent Labs: Hgb-10.3 , Wbc-6.03, NT-ProBNP 12816 Imaging: CT head and spine negative for any acute abnormalities Interventions: None PAST MEDICAL HISTORY Past Medical History: Diagnosis Date BPH (benign prostatic hyperplasia) Erectile dysfunction GERD (gastroesophageal reflux disease) HTN (hypertension) History reviewed. No pertinent surgical history. Family History Problem Relation Age of Onset No Significant Medical Problems NoFHx ALLERGIES Allergies Allergen Reactions Diltiazem Rash Keflex [Cephalexin] Rash MEDICATIONS No current facility-administered medications on file prior to encounter. Current Outpatient Medications on File Prior to Encounter Medication Sig Dispense Refill carvediloL 3.125 mg tablet Take 1 tablet by mouth in the morning and 1 tablet in the evening. Take with meals. Do all this for 30 days. 60 tablet 0 furosemide 80 mg tablet Take 1 tablet by mouth every morning and evening for 30 days. 60 tablet 0 pantoprazole 40 mg EC tablet Take 1 tablet by mouth in the morning for 30 days. 30 tablet 0 sacubitriL-valsartan 24-26 mg tablet Take 1 tablet by mouth in the morning and 1 tablet in the evening. Do all this for 30 days. 60 tablet 0 tamsulosin 0.4 mg 24 hr capsule Take 1 capsule by mouth in the morning for 30 days. 30 capsule 0 aspirin 81 mg chewable tablet Take 1 tablet by mouth in the morning. vitamin B-12 (VITAMIN B-12) 250 mcg tablet Take 1 Tab by mouth daily. 90 Tab 3 fluconazole 100 mg tablet Take 1 tablet by mouth in the morning. mupirocin 2 % ointment Apply to area(s). levothyroxine 25 mcg tablet Take 1 tablet by mouth every morning for 30 days. 30 tablet 0 SOCIAL HISTORY Social History Socioeconomic History Marital status: Tobacco Use Smoking status: Never Smokeless tobacco: Never Substance and Sexual Activity Alcohol use: Yes Alcohol/week: 8.3 - 16.7 standard drinks of alcohol Types: 10 - 20 drink(s) per week Comment: daily Drug use: No Social Determinants of Health Food Insecurity: No Food Insecurity (05/28/2024) NCSS - Food Insecurity Worried About Running Out of Food in the Last Year: No Ran Out of Food in the Last Year: No Transportation Needs: No Transportation Needs (05/28/2024) NCSS - Transportation Lack of Transportation: No Housing Stability: Not At Risk (05/28/2024) NCSS - Housing/Utilities Has Housing: Yes Worried About Losing Housing: No Unable to Get Utilities: No REVIEW OF SYSTEMS: Per HPI PHYSICAL EXAMINATION Vitals: 05/28/24 1500 05/28/24 1515 05/28/24 1530 05/28/24 1630 BP: 121/52 124/54 123/51 121/53 Pulse: 85 79 84 77 Resp: 18 18 19 29 Temp: SpO2: 97% 100% 99% 100% Weight: Height: Constitutional: alert, comfortable, and in no acute distress HEENT: atraumatic, no scleral icterus, no conjunctival pallor Cardiovascular: regular rate and rhythm, no appreciable murmurs Respiratory: CTAB, non-labored Abdominal: soft, non-distended, non-tender to palpation in all quadrants, no rebound tenderness or guarding Extremities: no LE edema, peripheral pulses normal Skin: no rash or jaundice Neurologic: AO x 3 Psychiatric: normal affect LABS and IMAGING - reviewed EKG: No significant changes compared to EKG on 05/06/24, normal sinus rhythm CHART REVIEW: Hospital Course from 04/23/24: Mayank Hurley is a 79 year old male with PMH as listed above, admitted to the hospital with needing dialysis due to CKD 4 and severe aortic regurgitation, CHF exacerbation and hematuria. Patient started on hemodialysis and has a chair set up for Monday and Saturdays. Also medication titrated for acute on chronic systolic and diastolic CHF. Patient was managed by cardiology and medication recommendation as below for patient to take new medication at home. Had some hematuria and urology was consulted inserted a three-way catheter with CBI. Patient tolerated well after CBI was clamped there was little to non hematuria noted. Patient cleared for discharge and will follow-up with HD appointments, cardiology in about 1 to 2 weeks, and urology at discharge within 3 to 5 days. ASSESSMENT/PLAN Mayank Hurley is a 79 year old male with PMH as listed above, admitted to the hospital with: Syncope Possible apnea HFrEF (EF 35 - 40% on 04/28/24) Aortic regurgitation Microcytic anemia Hypocalcemia Elevated lipase Per patient family, patient with no prior hx of syncopal or apneic episodes. Ddx would include orthostatic hypotension vs CHF exacerbation vs seizure vs cardiac event. Given elevated NT-ProBNP on admission, will recheck TTE. Patient does not appear clinically volume overloaded so will hold home diuretics for now. No electrolyte derangements and pt has not missed any dialysis sessions recently. Less likely to be infectious given lack of symptoms as well as normal WBC and afebrile. - Admit labs (CBC, CMP, Mg) - CXR pending - Iron panel, ferritin pending - TTE pending - UDS, UA, TSH, FT4 pending - Check orthostatic vitals - Hold home furosemide - Telemetry HTN Hypothyroidism ESRD on HD TTHS Obstructive uropathy 2/2 BPH with chronic indwelling bella GERD Chronic, well controlled conditions. Patient reports not taking his thyroid medication. - ESRD nephro consulted - Hold home antihypertensives given current normotension - C/w other home medications Pain Not an active problemTylenol and [place] Prophylaxis: DVT- heparin Stress Ulcer: no indication for prophylaxis Code Status: addressed: Full Diet: Regular Diet; Diet Texture: Regular. Steven Tyler MD PGY-1, Department of Internal Medicine ENT SAFETY OFFICER Associated attestation - Bessy Weber MD - 05/30/2024 10:37 PM PATIENT SAFETY OFFICER After discussion with Dr. Tyler, I examined this patient. I agree with resident's note with the following exception(s): Patient examined by self on 05/29. Presumed cardiac syncope. Contributors severe AR, moderate , moderate thoracic aortic aneurysm. Will need cardiac consultation, probably CTS consultation. Echo, trend troponin, telemetry. He believes antiHTN/chf med's are contributing to hypotension which is certainly plausible as well. Entresto held, I would consider resuming beta blockade, perhaps cardioselective for less hypotension. Bessy Weber MD Geriatric Faculty [facility] 2024-04-23 20:33:00 [facility] Hospitalist Admission H&P Date of Service: 04/23/2024 CHIEF COMPLAINT: Needing hemodialysis HISTORY OF PRESENT ILLNESS Mayank Hurley is a 79 year old male who presents with chronic kidney disease. Patient was seen by cardiology and they are recommending cardiac catheterization for evaluation for TAVR procedure. Patient has been on hemodialysis before. He states that he was diagnosed with bladder outlet obstruction and he went into renal failure. This was about 5 to 6 years ago and he ended up on hemodialysis. He states that he was on hemodialysis for about a year. He was able to get off of hemodialysis, but he continued to have chronic kidney disease. He has been doing well, until he started getting more short of breath. He was seen by cardiology and his echocardiogram revealed severe aortic regurgitation with aortic root dilatation. Cardiology wants to go ahead and proceed with cardiac catheterization to evaluate patient for TAVR. However, the concern is if he gets contrast load he will go into end-stage renal disease. Plan is to go ahead and get hemodialysis access catheter through IR and then proceed with cardiac intervention. At that point we will be able to hemodialyze patient. Patient will be admitted to the hospital for initiation of hemodialysis.. PAST MEDICAL HISTORY Past Medical History: Diagnosis Date BPH (benign prostatic hyperplasia) Erectile dysfunction GERD (gastroesophageal reflux disease) HTN (hypertension) PAST SURGICAL HISTORY History reviewed. No pertinent surgical history. ALLERGIES Allergies Allergen Reactions Diltiazem Rash Keflex [Cephalexin] Rash MEDICATIONS Current home medication list reviewed: Current Discharge Medication List STOP taking these medications carvediloL 6.25 mg tablet Comments: Reason for Stopping: furosemide 40 mg tablet Comments: Reason for Stopping: tamsulosin (FLOMAX) 0.4 mg 24 hr capsule Comments: Reason for Stopping: CIALIS 5 mg tablet Comments: Reason for Stopping: hydrochlorothiazide (ESIDRIX) 25 mg tablet Comments: Reason for Stopping: lisinopril (PRINIVIL,ZESTRIL) 20 mg tablet Comments: Reason for Stopping: triamcinolone acetonide (KENALOG) 0.1 % ointment Comments: Reason for Stopping: triamcinolone acetonide (TRIDERM) 0.1 % cream Comments: Reason for Stopping: omeprazole (PRILOSEC) 40 mg capsule Comments: Reason for Stopping: vitamin B-12 (VITAMIN B-12) 250 mcg tablet Comments: Reason for Stopping: FAMILY HISTORY Family History Problem Relation Age of Onset No Significant Medical Problems NoFHx SOCIAL HISTORY Social History Socioeconomic History Marital status: Tobacco Use Smoking status: Never Smokeless tobacco: Never Substance and Sexual Activity Alcohol use: Yes Alcohol/week: 8.3 - 16.7 standard drinks of alcohol Types: 10 - 20 drink(s) per week Comment: daily Drug use: No REVIEW OF SYSTEMS 10 systems negative except per HPI PHYSICAL EXAMINATION BP 134/55 | Pulse 62 | Temp 36.2 ?C (97.1 ?F) (Temporal Artery) | Resp 18 | Ht 1.88 m (6' 2") | Wt 113.4 kg (250 lb) | SpO2 98% | BMI 32.10 kg/m? General: No acute distress HEENT: Normal oral mucosa, anicteric sclerae, NCAT Cardiovascular: RRR with murmur 3/6; diastole Lungs: Symmetric expansion, basilar crackles abdomen: Soft, NTND Musculoskeletal: No synovitis, normal muscle mass Genitourinary: Deferred Skin: No rash, no skin lesions Extremities: No clubbing, no cyanosis, no lower extremity edema Neuro: AAOx3, no focal deficits: Generalized weakness Psych: Normal affect LABS - reviewed pertinent labs as below: CBC BMP PT/INR WBC x10 3 (/uL) Date Value 07/09/2013 7.7 WBC (10*3/?L) Date Value 04/23/2024 7.10 NA Date Value 04/24/2024 130 mmol/L (L) 10/16/2014 135 MMOL/L No results found for: "PT" RBC x10 6 (/uL) Date Value 07/09/2013 4.83 RBC (10*6/?L) Date Value 04/23/2024 4.47 K Date Value 04/24/2024 3.6 mmol/L 10/16/2014 4.1 MMOL/L PT INR (no units) Date Value 06/16/2011 1.0 PLT x10 3 (/uL) Date Value 07/09/2013 254 PLT (10*3/?L) Date Value 04/23/2024 176 CALCIUM Date Value 04/24/2024 8.0 mg/dL (L) 10/16/2014 9.5 MG/DL HGB Date Value 04/23/2024 12.8 g/dL 07/09/2013 14.3 G/DL CL Date Value 04/24/2024 101 mmol/L 10/16/2014 98 MMOL/L aPTT HCT (%) Date Value 04/23/2024 39.2 07/09/2013 42.1 BUN Date Value 04/24/2024 37 mg/dL (H) 10/16/2014 13 MG/DL APTT (SEC) Date Value 06/16/2011 30 CREATININE Date Value 04/24/2024 3.55 mg/dL (H) 10/16/2014 0.91 MG/DL IMAGING - reviewed, pertinent results as below: Hospital Encounter on 04/23/24 US RETROPERITONEAL COMPLETE Narrative HISTORY: CKD IV. TECHNIQUE: Both kidneys are evaluated in multiple planes with the patient in different positions. FINDINGS: RIGHT KIDNEY: Measures 10.8 x 2.9 x 4.2 cm with cortical thickness measuring up to 12-13 mm. No hydronephrosis or perinephric fluid collection detected. Several 10 mm or smaller size and anechoic lesions are seen, consistent with simple renal cysts. LEFT KIDNEY: Measures 11.8 x 4.9 x 5.2 cm in size with cortical thickness measuring up to 7-10 mm. No hydronephrosis or perinephric fluid collection. Dilated right renal pelvis noted without any significant caliectasis. The renal pelvis is dilated up to 16 mm. Several anechoic lesions are detected, largest of 16 mm size on the ventral medial cortical surface. Quick look at the urinary bladder showed no gross pathology. Amount of urine accumulated in the bladder lumen was approximately 469 mL. No post void study was obtained by the technologist. Incidentally splenomegaly noted. Spleen is 14.8 x 4.2 cm. CONCLUSIONS: 1. Dilated left renal pelvis noted without significant caliectasis. 2. Bilateral simple renal cysts. 3. Moderately distended urinary bladder noted, possibly due to enlarged prostate gland. XR CHEST 1 VW Narrative ORDERING PHYSICIAN: Aliyah RASMUSSEN. HISTORY: sob TECHNIQUE: AP COMPARISON: None. FINDINGS: Lungs: Diffuse prominence of interstitial markings is seen. There is bibasal consolidation Pleura: Small pleural effusions are present. There is no pneumothorax. Mediastinum/Susan: No masses or adenopathy. Heart: The heart is not enlarged. Other: No acute osseous abnormality is seen. Impression Bibasal consolidation, pulmonary vascular congestion, and small pleural effusions. End of Report SSMENT: 1. Severe aortic regurgitation 2. Chronic kidney disease stage V 3. History of metabolic syndrome 4. History of BPH 5. Diastolic heart failure 6. History of GERD 7. History of bladder outlet obstruction with prior HD PLAN: 1. Patient with severe aortic regurgitation and will require TAVR procedure. In order for us to proceed with evaluation patient will need cardiac catheterization. But in the current setting of chronic kidney disease stage V there, try to prevent progression to end-stage by initiating hemodialysis so once we do the cardiac cath patient can get hemodialysis to prevent progression of renal failure. Currently patient is doing well with no complaints. Continue with his home medications at this time. Further evaluation by cardiology, nephrology, and IR. DVT prophylaxis: heparin Stress ulcer prophylaxis: pantoprazole Code status: FULL Advanced Care Planning (Z71.89) Above assessment and plan discussed at length with patient, patient expressed full understanding. Questions and concerned addressed. Surrogate decision maker: NO Level of care expected after discharge: HOME Time spent: 3 minutes discussing the advanced care plan Smoking Cessation: (Z71.6) Tobacco user?: NO Patient will require inpatient stay of 2 midnights or more given high risk of morbidity and mortality. [place] CUSTOMS AND IMMIGRATION OFFICER was verified during stay Rohan Leon MD [facility] - Health Procedure Notes Date/Time Note Provider Source 2024-07-28 12:11:08 CHEST TUBE PLACEMENT Date of Service: 07/28 Fabian Chappell MD Indication/Diagnosis: L pleural effusion Consent source: spouse Consent type: indications/complications discussed with patient/legal guardian; written consent obtained PreProcedure Verification Completed yes, Site Marking Completed yes, Time Out Completed yes. Aseptic technique: A cap and mask were donned, hand hygiene was performed and sterile gown and gloves were donned. The skin was prepped with 2% chlorhexidine and the solution was allowed to dry. A full body fenestrated drape was placed over the patient without contaminating the drape during placement. Anesthesia: local Instrument(s) type: 14 Fr pigtail catheter Procedure site: left chest wall Complications: none Narrative: The left chest was prepped and draped in the usual sterile fashion. Approximately 20 ml of 1% Lidocaine was used to infiltrate the left 6th intercostal space along the mid-axillary line. Using Seldinger technique, the 6th ICS space was accessed using a finder needle with return of dark serosang fluid, a wire was then advanced with no issues and the tract dilated. A 14 Fr pigtail catheter was then inserted over the wire and secured in place in the usual manner. Approximately 2L of serosang fluid was drained upon connecting the drain to suction. The patient tolerated the procedure well without complications. Post procedure CXR ordered. Fabian Chappell MD CT Surgery Fellow, PGY-7 [facility] 2024-07-27 11:23:33 CHEST TUBE PLACEMENT Date of Service: 07/27/24 Fabian Chappell MD Indication/Diagnosis: large right pleural effusion Consent source: spouse Consent type: indications/complications discussed with patient/legal guardian; written consent obtained PreProcedure Verification Completed yes, Site Marking Completed yes, Time Out Completed yes. Aseptic technique: A cap and mask were donned, hand hygiene was performed and sterile gown and gloves were donned. The skin was prepped with 2% chlorhexidine and the solution was allowed to dry. A full body fenestrated drape was placed over the patient without contaminating the drape during placement. Anesthesia: local Instrument(s) type: 14 Fr pigtail catheter Procedure site: right chest wall Complications: none Narrative: The right chest was prepped and draped in the usual sterile fashion. Approximately 20 ml of 1% Lidocaine was used to infiltrate the 6th intercostal space along the mid-axillary line. Using Seldinger technique, the 6th ICS space was accessed using a finder needle with return of serosang fluid, a wire was then advanced with no issues and the tract dilated. A 14 Fr pigtail catheter was then inserted over the wire and secured in place in the usual manner. Approximately 2L of serosang fluid was drained upon connecting the drain to suction. The patient tolerated the procedure well without complications. Post procedure CXR ordered. Fabian Chappell MD CT Surgery Fellow, PGY-7 [facility] 2024-07-27 08:41:11 Associated Order(s): Arterial Line Arterial Line Date/Time: 07/27/2024 8:42 AM Performed by: Norma March MD Arterial Line Placement: Ultrasound-Guided: ultrasound guided Indication: continuous blood pressure monitoring and blood sampling needed Staff: Resident: Norma March MD Procedure Detail: Catheter Size: 20 gauge Catheter Length: 1 and 3/4 inch Catheter Type: Arrow Seldinger Technique?: No Laterality: Left Site: Radial artery Line Secured: Tape, Tegaderm and biopatch Preparation: Chloroprep, sterile gloves, guidewire removed intact, biopatch applied and drape Events: Events: Patient tolerated procedure well with no complications and all wires accounted for Comments: (+) Local infiltration with Lidocaine, STF, smooth and atraumatic. [facility] ANESTHESIOLOGY [facility] 2024-07-19 13:28:37 Procedure(s): AN YUMIKO Intraoperative Transesophageal Echocardiography Exam 07/19/2024 1:28 PM Diagnosis: CAD, Aortic Valve stenosis and regurgitation, ascending aorta aneurysm Procedure: CABG, AVR, Ascending Aorta Replacement After the induction of anesthesia, YUMIKO probe inserted atraumatically and removed without difficulty at the end of the surgical procedure. Preop YUMIKO Aortic valve: Tri-leaflet with moderate calcification. Moderate AI and moderate . - BRUNO by VTI 1.77 cm?, 2D planimetry 1.88 cm? (MG 15) - Moderate AI, proximal aorta systolic flow reversal, jet width: LVOT width 50%, AI PHT 701ms - Annulus diameter: 26 mm - LVOT: 25 mm - ST junction diameter: 33 mm - Ascending aorta: 48mm Mitral valve: mild MR, no MS - Annulus diameter: 40 mm Tricuspid valve: trace TR - Annulus diameter: 53 mm - Hepatic venous velocities: no systolic flow reversal Pulmonic valve: normal LV: Dilated LV, moderate global hypokinesis without RWMA and normal wall thickness. Visually estimated EF 38%. - LV end diastolic diameter: 6.47 cm - LV end systolic diameter: 4.85 cm - LV end diastolic wall thickness: 0.8 cm - FAC 32% - Diastolic function: indeterminate, unable to accurately doppler due to moderate AI - Peak lateral mitral annular E' velocity: 7.3 cm/s - Pulmonary vein flow: blunted systolic flow in the RUPV - S velocity: 22 cm/s - D velocity: 52 cm/s - A reversal: 26 cm/s RV: normal size with normal function LA: normal atrial size. no left atrial appendage thrombus. Velocity in the left atrial appendage is 35 cm/s RA: normal Intraatrial septum: trace PFO Ascending aorta: Diameter: 48 mm, with grade 2 intima Descending aorta: diffuse grade 3 with focal grade 4 atheromatous disease Interpretation: LV: Dilated LV, moderate global hypokinesis without RWMA and normal wall thickness. Visually estimated EF 38%. RV: normal size with normal function Diastolic function: indeterminate TV: trace TR, dilated annulus PV: normal MV: mild MR AV: moderate AI, moderate , 26mm annulus, 48mm ascending aorta No pericardial effusion No pleural effusion No dissection No PFO Post-op YUMIKO: s/p 25mm EPIC Max with ascending aorta replacement LV: unchanged, on small dose inotropic support RV: unchanged TV: unchanged PV: unchanged MV: unchanged AV: S/p AVR, well seated without rocking motion of valve --regurgitation: No PVL, no transvalvular leak, all leaflets appear to open/close satisfactorily. --flow limitation: VTI ratio: 0.4, MG 14 mmHg No pericardial effusion No pleural effusion No dissection No PFO Leanne Gilbert MD 07/19/2024 1:28 PM All findings were communicated to surgeon in real time. I was present for the entire examination including interpretation., Agree with above findings ENT SAFETY OFFICER AN-ANESTHESIOLOGY ANESTHESIOLOGIST [facility] 2024-05-30 14:04:38 Right/Left Heart Cath/Coronary Angiography Mayank Hurley 2:04 PM Attending faculty: Myron Anderson MD Fellow: Dr Patel Referring Physician: Dr Monson Procedures Performed: [facility] Coronary angiogram /L SCA and SANCHES angiogram for CABG eval Indication/Diagnosis: valvular disease 79 yo male with ESRD on HD, anemia, HTN, admitted to [facility] 05/28/24 for syncope/SOB, diagnosed with /AR and Asc aortic aneurysm. ECHO 04/28/24; LVEF 35-40%, moderate to severe AR/. Consent: Risks, benefits, alternatives and complications of the procedure discussed with the self, who understood and agreed to proceed. Aseptic technique: Chlorprep Local Anesthesia: 1% lidocaine without epinephrine Sedation: Moderate Access site: Arterial: Right femoral artery 6fr Venous: Right femoral vein 7fR Closure Method: Arterial: R OBSTETRIC ASSISTANT perclose Venous: Manual Compression Sterile dressing: yes Complications: none Procedures: After patient identification/verificatio n, the patient was thereafter transferred to the collaborating supervising physician table. The access site was prepped and draped in usual sterile fashion. After administering sedation, time out was done. Under ultrasound guidance, using Seldinger technique, the Right femoral artery was accessed and a 6 Fr sheath was introduced into the artery. Under ultrasound guidance, the Right femoral vein was accessed and a 7 Fr Fr sheath was introduced A 7 Fr [place] Dianelys catheter was used to obtain RA/RV/PA and PCWP and for CO measurement. A 6Fr JL6 catheter was used to cannulate the LM. Selective coronary angiography was done using several views. A 6Fr JR4 was used to cross the AV with the J wire and the catheter was advanced into the LV where selective LVEDP 10 was measured. The 6Fr JR4 then 4Fr Al1 and then 4Fr Al2 and then 5Fr 3DRC catheter was then used to cannulate the RCA and selective coronary angiography was done using multiple views. Then 5Fr JR4 to L SCA for L SCA and SANCHES angiogram for CABg evaluation. Perclose r OBSTETRIC ASSISTANT, R CFV manual compression. The attending physician was present throughout the procedure and provided the highest level of supervision. Findings: Coronary dominance: right Left main: moderate calcification mild LI LAD: large vessel pLAD/D1 bifurcation severe stenosis 70% LAD/70% D1, m-d LAD mild LI LCX: large mild LI, OM1-2-3 mild LI RCA: dominant vessel, mild LI, RPDA mild LI, RPLB1-2-3-4 small mild LI LVEDP: 10 mmHg L SCa patent, SANCHES patent RHC: RA mean 1 mmHg RV 28/1 mmHg PA 30/7 mmHg (mean PA 17 mmHg) PCWP mean 15 mmHg CO 8.02 L/min (Lizet's method) CI 3.65 L/min/m2 (Lizet's method) CO 7.45 L/min (Thermodilution technique) CI 3.39 L/min/m2 (Thermodilution technique) Sats on room air PA sat: 73% RA sat: 67% Post-Procedure Sedation Addendum Immediately prior to start of sedation, the patient was evaluated and there was no change from the pre-procedure evaluation. I was present and directed medical care. The patient underwent moderate sedation for the procedure. The medications administered were recorded in the MAR; oxygenation, ventilation and circulation were monitored continuously and were recorded in the EMR. I evaluated the patient after the procedure. The patient was evaluated immediately as recovering from sedation. Complications: none Impression/plan: 1-mild elevated pulmonary pressures. Normal resting CO. Normal LVEDP. Severe pLAD/D1 bifurcation stenosis, recommend CTS eval for AVR/CABG. D/w pt in detail, all questions answered. Myron Anderson MD 05/30/2024 2:04 PM ENT SAFETY OFFICER IM-INTERVENTIONAL CARDIOLOGY STAFF [facility] 2024-04-25 14:30:37 VASCULAR AND INTERVENTIONAL RADIOLOGY PROCEDURE NOTE Pre-procedure diagnosis: Need for hemodialysis Post-procedure diagnosis: Same Procedure: US guided R IJ access Tunneled dialysis catheter placement Findings: 23cm tunneled dialysis catheter terminates at the superior cavoatrial junction. Ready for immediate use. Complications: None Condition: Stable Estimated blood loss: <5cc Plan: Line is ready for immediate use. Full dictated note to follow in PACS. ENT SAFETY OFFICER RAD-VASCULAR & INTERVENTIONAL RADIOLOGY STAFF [facility] 2024-04-25 13:29:39 Patient recieved to Radiology for tunneled dialysis catheter . Indication for procedure is need for hemadialysis Pt identified using name and . strain technician monitoring is Peter Naranjo Cecilia IR Faculty supervising is Patricia obtained consent as 13:32 Invasive procedure checklist completed at 1344 Time out completed at 1345 Pre-procedure vitals are: BP 157/65 HR 78 O2 94 Procedural vitals are: BP 147/58 HR 85 O2 95 BP:178/72 HR:80 O2:95 Post procedure vitals are: BP 177/80 HR 79 O2 95 Post procedure disposition back to patient room A Chong Do [facility] Notes Date/Time Note Provider Source 2024-09-06 15:30:23 Tried to return call. Bebe Alex MANAGER LOCAL reviewed. Recommend these go to PCP to be managed. Detailed message left. Nallely Bangura LVN [facility] 2024-09-05 12:35:27 Natasha with [facility] calling stating she dropped off orders at the clinic for provider to sign, and she is needing to speak with a nurse to see when they will be ready for her to come by and milk pickup truck driver. Please advise natasha with [facility] ext [phone] Orquidea Segura [facility] 2024-09-05 09:59:57 Sent email to Emily and she said she will get pt scheduled. I forwarded the message with the call back number. I will close this and emily will take care of it. Julissa Dumont [facility] 2024-09-04 17:01:37 Spoke with HH to f/u. States PT was there and he exceeded his walking goals. BP 140/80 HR 90, no symptoms. He is doing well. He is scheduled this Monday for f/u. He also instructed to f/u with CTS and PCP. ED precautions given. Verbalized understanding and agreed. Appreciated the call Nallely Bangura LVN [facility] 2024-09-02 14:57:46 Returned call and spoke with nurse Mamadou. States BP have been 152/68, 112/62m 120/65, 141/77. HR in the 90's at rest. HR 130-150 with activity. Informed if he feels like he is having anxiety attacks he should f/u with PCP. States he does have appt. Confirmed he is taking his medication. Will route message to provider. [facility] 2024-09-02 12:27:13 Mayank Hurley is a 79 [facility] calling to report pt has been having anxiety spells, heart rate is running high with activity, caller states pt is not currently having these symptoms at this time but wanted to report to [facility] Isai for appt on Monday. Patient [phone] (home) Nurse Jose [phone] Keely Ashley [facility] 2024-08-31 11:38:37 Mayank Hurley is a 79 year old male [place], pt spouse is calling to schedule the pt post op appt for after their surgery on 07/[address] Sherman. This providers availability isnt populating for me so I'm unsure on how to get the pt scheduled. Please advise and schedule pt for their post op. Please advise at [phone] Ulysses Youngblood [facility] 2024-08-30 14:31:[address] Nicole, orders entered for bella catheter placement and faxed [facility]. [facility] 2024-08-30 13:19:54 Yes, it ok URO-UROLOGY STAFF [facility] 2024-08-30 12:09:00 Mayank Hurley is a 79 year old male Nurse Garcia with [facility] requesting orders for his catheter to be placed Kiki. [phone] Jenae Ashley [facility] 2024-08-07 16:09:21 Problem: Falls, Risk of Goal: Absence of falls Outcome: Resolved Problem: Respiratory Function - Impaired Goal: Able to cough effectively Outcome: Resolved Goal: Adequate oxygenation Outcome: Resolved Goal: Adequate work of breathing Outcome: Resolved Problem: Pain Goal: Control of pain at or below patient's documented comfort goal Outcome: Resolved Goal: Reduction in pain sensation Outcome: Resolved Problem: Procedure Routine Goal: Knowledge of procedure Outcome: Resolved Problem: Discharge Planning Goal: Able to perform ADL Outcome: Resolved Goal: Knowledge of medication management Outcome: Resolved Goal: Knowledge of need for follow-up care Outcome: Resolved Goal: Knowledge of personal stroke risk factors Outcome: Resolved Goal: Knowledge of stroke warning signs Outcome: Resolved Goal: Facility placement (SNF, LTAC, LTC) appropriate for patient's abilities. Outcome: Resolved Problem: Skin integrity Impaired (Risk or Actual) Goal: Wound healing Outcome: Resolved Goal: Prevention of new skin breakdown Outcome: Resolved A Snider RN [facility] 2024-08-07 00:39:56 Problem: Falls, Risk of Goal: Absence of falls Outcome: Progressing as expected Problem: Respiratory Function - Impaired Goal: Able to cough effectively Outcome: Progressing as expected Goal: Adequate oxygenation Outcome: Progressing as expected Goal: Adequate work of breathing Outcome: Progressing as expected Problem: Pain Goal: Control of pain at or below patient's documented comfort goal Outcome: Progressing as expected Goal: Reduction in pain sensation Outcome: Progressing as expected Problem: Procedure Routine Goal: Knowledge of procedure Outcome: Progressing as expected Problem: Discharge Planning Goal: Able to perform ADL Outcome: Progressing as expected Goal: Knowledge of medication management Outcome: Progressing as expected Goal: Knowledge of need for follow-up care Outcome: Progressing as expected Goal: Knowledge of personal stroke risk factors Outcome: Progressing as expected Goal: Knowledge of stroke warning signs Outcome: Progressing as expected Goal: Facility placement (SNF, LTAC, LTC) appropriate for patient's abilities. Outcome: Progressing as expected Problem: Skin integrity Impaired (Risk or Actual) Goal: Wound healing Outcome: Progressing as expected Goal: Prevention of new skin breakdown Outcome: Progressing as expected ENT SAFETY OFFICER Shaan Ortega RN [facility] 2024-08-06 19:44:29 Problem: Falls, Risk of Goal: Absence of falls Outcome: Progressing as expected Problem: Pain Goal: Control of pain at or below patient's documented comfort goal Outcome: Progressing as expected Goal: Reduction in pain sensation Outcome: Progressing as expected Problem: Skin integrity Impaired (Risk or Actual) Goal: Wound healing Outcome: Progressing as expected Goal: Prevention of new skin breakdown Outcome: Progressing as expected ENT SAFETY OFFICER [facility] 2024-08-06 16:52:11 HEMODIALYSIS NURSING NOTE Number Hours: 3.0 hours Bath: 3K 3 Calcium Heparin: zero Access: right Catheter permanent IJ Net UF: 1.5 L Weight: pre 100.5 kg, post 99 kg Post BP 106/63 Post Pulse 99 Antibiotics/Medications Given: none Complications/Events of Treatment: Dr. Rienoso and Ashwinenti aware of allergy to CHG and some dressings. Yellowish drainage noted to CVC site. Cleaned CVC site with alcohol and applied 2X2 guaze with paper tape. Patient denied complaints and tolerated treatment. Patient left HD unit without distress nor complications. Handoff report completed and attached to Patient Chart: Andie THOMAS Mode of Transport Back to Unit: bed and accompanied by transporter. See hemodialysis flowsheet for details of treatment. ENT SAFETY OFFICER Ailin Gaxiola RN [facility] 2024-08-06 15:03:37 Reviewed needs CABG prior to HOLEP, not cleared for HOLEP at this time, overall low risk of postop aortic valve infection risk from urology standpoint, continue indwelling bella for the time being with regular exchanges monthly until HOLEP can be performed safely after he recovers from cardiac surgery in 3-6 months ENT SAFETY OFFICER URO-UROLOGY STAFF [facility] 2024-08-06 13:08:44 Hemodialysis Plan of care reviewed r/t treatment time & UF goal. Also reviewed possible side effects of HD tx, such as s/s of hypotension, cramping (during tx and at rare times after tx), N/V, CP or any other concerns. Patient acknowledge understanding of treatment plan. [facility] 2024-08-06 10:11:12 Received discharge transfer summary forms from [place] [employer] [facility] and they were scanned into the pt chart for review. [facility] Grover Vera [facility] 2024-08-06 00:09:56 Problem: Falls, Risk of Goal: Absence of falls Outcome: Progressing as expected Problem: Respiratory Function - Impaired Goal: Able to cough effectively Outcome: Progressing as expected Goal: Adequate oxygenation Outcome: Progressing as expected Goal: Adequate work of breathing Outcome: Progressing as expected Problem: Pain Goal: Control of pain at or below patient's documented comfort goal Outcome: Progressing as expected Goal: Reduction in pain sensation Outcome: Progressing as expected Problem: Procedure Routine Goal: Knowledge of procedure Outcome: Progressing as expected Problem: Discharge Planning Goal: Able to perform ADL Outcome: Progressing as expected Goal: Knowledge of medication management Outcome: Progressing as expected Goal: Knowledge of need for follow-up care Outcome: Progressing as expected Goal: Knowledge of personal stroke risk factors Outcome: Progressing as expected Goal: Knowledge of stroke warning signs Outcome: Progressing as expected Goal: Facility placement (SNF, LTAC, LTC) appropriate for patient's abilities. Outcome: Progressing as expected Problem: Skin integrity Impaired (Risk or Actual) Goal: Wound healing Outcome: Progressing as expected Goal: Prevention of new skin breakdown Outcome: Progressing as expected [facility] 2024-08-05 19:59:32 HEMODIALYSIS NURSING NOTE Number Hours: 3.0 hours (Isolated UF) Bath: Isolated UF Heparin: zero Access: right Catheter permanent IJ Net UF: 2.5 L Weight: pre 111.5 kg, post 109.5 kg (bed scale) Post HD: BP 124/57 Pulse 95 Antibiotics/Medications Given: Midodrine 10 mg PO Complications/Events of Treatment: Pt HD catheter clean, no signs of infection, & dressing intact 08/05/24 changed. Both cath ports able to aspirate & flush briskly. Treatment completed. Blood returned. Cath access packed w/ Heparin, clamped & capped. HD completed without issues. Patient's vital signs stable and left HD unit without distress or complaints Handoff report: Completed HD treatment sheet and attached it to the patients chart. and given via phone to MARTHA Garduno Mode of Transport Back to Unit: bed and accompanied by transporter See hemodialysis flowsheet for further details of the treatment. A Guillen RN [facility] 2024-08-05 16:48:24 Problem: Procedure Routine Goal: Knowledge of procedure Outcome: Progressing as expected Hemodialysis Plan of care reviewed r/t treatment time & UF goal. Also reviewed possible side effects of HD tx, such as s/s of hypotension, cramping (during tx and at rare times after tx), N/V, CP or any other concerns. Patient acknowledge understanding of treatment plan. [facility] 2024-08-05 07:40:00 Problem: Falls, Risk of Goal: Absence of falls Outcome: Progressing as expected Problem: Respiratory Function - Impaired Goal: Able to cough effectively Outcome: Progressing as expected Goal: Adequate oxygenation Outcome: Progressing as expected Goal: Adequate work of breathing Outcome: Progressing as expected Problem: Pain Goal: Control of pain at or below patient's documented comfort goal Outcome: Progressing as expected Goal: Reduction in pain sensation Outcome: Progressing as expected Problem: Procedure Routine Goal: Knowledge of procedure Outcome: Progressing as expected Problem: Discharge Planning Goal: Able to perform ADL Outcome: Progressing as expected Goal: Knowledge of medication management Outcome: Progressing as expected Goal: Knowledge of need for follow-up care Outcome: Progressing as expected Goal: Knowledge of personal stroke risk factors Outcome: Progressing as expected Goal: Knowledge of stroke warning signs Outcome: Progressing as expected Goal: Facility placement (SNF, LTAC, LTC) appropriate for patient's abilities. Outcome: Progressing as expected Problem: Skin integrity Impaired (Risk or Actual) Goal: Wound healing Outcome: Progressing as expected Goal: Prevention of new skin breakdown Outcome: Progressing as expected ENT SAFETY OFFICER Nghia Womack RN [facility] 2024-08-04 12:06:04 Problem: Falls, Risk of Goal: Absence of falls Outcome: Progressing as expected Problem: Respiratory Function - Impaired Goal: Able to cough effectively Outcome: Progressing as expected Goal: Adequate oxygenation Outcome: Progressing as expected Goal: Adequate work of breathing Outcome: Progressing as expected Problem: Pain Goal: Control of pain at or below patient's documented comfort goal Outcome: Progressing as expected Goal: Reduction in pain sensation Outcome: Progressing as expected Problem: Procedure Routine Goal: Knowledge of procedure Outcome: Progressing as expected Problem: Discharge Planning Goal: Able to perform ADL Outcome: Progressing as expected Goal: Knowledge of medication management Outcome: Progressing as expected Goal: Knowledge of need for follow-up care Outcome: Progressing as expected Goal: Knowledge of personal stroke risk factors Outcome: Progressing as expected Goal: Knowledge of stroke warning signs Outcome: Progressing as expected Goal: Facility placement (SNF, LTAC, LTC) appropriate for patient's abilities. Outcome: Progressing as expected Problem: Skin integrity Impaired (Risk or Actual) Goal: Wound healing Outcome: Progressing as expected Goal: Prevention of new skin breakdown Outcome: Progressing as expected ENT SAFETY OFFICER Sergo Purvis RN [facility] 2024-08-04 04:09:03 Problem: Falls, Risk of Goal: Absence of falls Outcome: Progressing as expected Problem: Respiratory Function - Impaired Goal: Able to cough effectively Outcome: Progressing as expected Goal: Adequate oxygenation Outcome: Progressing as expected Goal: Adequate work of breathing Outcome: Progressing as expected Problem: Pain Goal: Control of pain at or below patient's documented comfort goal Outcome: Progressing as expected Goal: Reduction in pain sensation Outcome: Progressing as expected Problem: Procedure Routine Goal: Knowledge of procedure Outcome: Progressing as expected Problem: Discharge Planning Goal: Able to perform ADL Outcome: Progressing as expected Goal: Knowledge of medication management Outcome: Progressing as expected Goal: Knowledge of need for follow-up care Outcome: Progressing as expected Goal: Knowledge of personal stroke risk factors Outcome: Progressing as expected Goal: Knowledge of stroke warning signs Outcome: Progressing as expected Goal: Facility placement (SNF, LTAC, LTC) appropriate for patient's abilities. Outcome: Progressing as expected Problem: Skin integrity Impaired (Risk or Actual) Goal: Wound healing Outcome: Progressing as expected Goal: Prevention of new skin breakdown Outcome: Progressing as expected A Humphreys RN [facility] 2024-08-03 18:44:57 HEMODIALYSIS NURSING NOTE Number Hours: 3.0 hours Bath: 3K 3 Calcium Heparin: zero Access: right Catheter permanent subclavian Net UF: 1.5 L Weight: pre 112.2 kg (inaccurate reading from previous) Post BP 142/68 Post Pulse 94 Antibiotics/Medications Given: None Complications/Events of Treatment: Started HD through right permanent catheter -- dressing dry, intact, no bleeding or infection noted on exit site. Both lumen are patent and with good flow. Patient reports last session, had dizziness mid dialysis with UF of 2 L. Set UF goal today to 1.5 L as tolerated. HD treatment completed and tolerated well without complications. HD catheter packed with heparin according to length of lumens. Transferred back to home unit vitally stable and no signs of distress noted. Handoff report completed and attached to Patient Chart Mode of Transport Back to Unit: bed and accompanied by transporter See hemodialysis flowsheet for details of treatment. A Segura RN [facility] 2024-08-03 15:32:13 Hemodialysis Plan of care reviewed r/t treatment time & UF goal. Also reviewed possible side effects of HD tx, such as s/s of hypotension, cramping (during tx and at rare times after tx), N/V, CP or any other concerns. Patient acknowledge understanding of treatment plan. A [facility] 2024-08-03 00:51:51 Problem: Falls, Risk of Goal: Absence of falls Outcome: Progressing as expected Problem: Respiratory Function - Impaired Goal: Able to cough effectively Outcome: Progressing as expected Goal: Adequate oxygenation Outcome: Progressing as expected Goal: Adequate work of breathing Outcome: Progressing as expected Problem: Pain Goal: Control of pain at or below patient's documented comfort goal Outcome: Progressing as expected Goal: Reduction in pain sensation Outcome: Progressing as expected Problem: Procedure Routine Goal: Knowledge of procedure Outcome: Progressing as expected Problem: Discharge Planning Goal: Able to perform ADL Outcome: Progressing as expected Goal: Knowledge of medication management Outcome: Progressing as expected Goal: Knowledge of need for follow-up care Outcome: Progressing as expected Goal: Knowledge of personal stroke risk factors Outcome: Progressing as expected Goal: Knowledge of stroke warning signs Outcome: Progressing as expected Goal: Facility placement (SNF, LTAC, LTC) appropriate for patient's abilities. Outcome: Progressing as expected Problem: Skin integrity Impaired (Risk or Actual) Goal: Wound healing Outcome: Progressing as expected Goal: Prevention of new skin breakdown Outcome: Progressing as expected [facility] 2024-08-02 16:41:52 Problem: Skin integrity Impaired (Risk or Actual) Goal: Wound healing Outcome: Progressing as expected [facility] Lamine Newell RN [facility] 2024-08-02 10:54:39 Problem: Falls, Risk of Goal: Absence of falls Outcome: Progressing as expected Problem: Respiratory Function - Impaired Goal: Able to cough effectively Outcome: Progressing as expected Goal: Adequate oxygenation Outcome: Progressing as expected Goal: Adequate work of breathing Outcome: Progressing as expected Problem: Pain Goal: Control of pain at or below patient's documented comfort goal Outcome: Progressing as expected Goal: Reduction in pain sensation Outcome: Progressing as expected Problem: Procedure Routine Goal: Knowledge of procedure Outcome: Progressing as expected Problem: Discharge Planning Goal: Able to perform ADL Outcome: Progressing as expected Goal: Knowledge of medication management Outcome: Progressing as expected Goal: Knowledge of need for follow-up care Outcome: Progressing as expected Goal: Knowledge of personal stroke risk factors Outcome: Progressing as expected Goal: Knowledge of stroke warning signs Outcome: Progressing as expected Goal: Facility placement (SNF, LTAC, LTC) appropriate for patient's abilities. Outcome: Progressing as expected [facility] 2024-08-02 04:57:27 Problem: Falls, Risk of Goal: Absence of falls Outcome: Progressing as expected Problem: Respiratory Function - Impaired Goal: Able to cough effectively Outcome: Progressing as expected Goal: Adequate oxygenation Outcome: Progressing as expected Goal: Adequate work of breathing Outcome: Progressing as expected Problem: Pain Goal: Control of pain at or below patient's documented comfort goal Outcome: Progressing as expected Goal: Reduction in pain sensation Outcome: Progressing as expected Problem: Procedure Routine Goal: Knowledge of procedure Outcome: Progressing as expected Problem: Discharge Planning Goal: Able to perform ADL Outcome: Progressing as expected Goal: Knowledge of medication management Outcome: Progressing as expected Goal: Knowledge of need for follow-up care Outcome: Progressing as expected Goal: Knowledge of personal stroke risk factors Outcome: Progressing as expected Goal: Knowledge of stroke warning signs Outcome: Progressing as expected Goal: Facility placement (SNF, LTAC, LTC) appropriate for patient's abilities. Outcome: Progressing as expected [facility] 2024-08-01 18:48:00 HEMODIALYSIS NURSING NOTE Number Hours: 3.0 hours Bath: 3K 3 Calcium Heparin: zero Access: right Catheter permanent IJ Net UF: 1.5L Weight: pre 114 kg, post 112.5 kg Post BP 141/82 Post Pulse 101 Antibiotics/Medications Given: none Complications/Events of Treatment: With soft bp pre HD and was increased MID HD . Rounded by Dr. [place] Re[place] during HD. HD access working well during HD, no issues.With Permanent catheter clean and dry, dressed aseptically.No complication. Heparin lock done as per ordered, covered aseptically. Alert ,awake not in distress, denies any complaint when patient left the unit. Telephone report given to MARTHA Fox Handoff report completed and attached to Patient Chart Mode of Transport Back to Unit: bed with transporter, on chest tube See hemodialysis flowsheet for details of treatment. [facility] 2024-08-01 14:58:01 Hemodialysis: consent verification, pt identified by name & [facility] number by 2 staff members, call light in reach. Education: HD UF time & goal, s/s to report to healthcare team during and post treatment: Nausea/vomiting, muscle cramping, headache, low blood pressure, weakness, dizziness, blurred vision, bleeding access and other concerns. [facility] 2024-08-01 14:57:17 Problem: Procedure Routine Goal: Knowledge of procedure Outcome: Progressing as expected Hemodialysis Plan of care reviewed r/t treatment time, UF goal, dry wgt and fluid restrictions. Also reviewed care of dialysis access during tx. Pt updated during tx as needed with teaching done. Also reviewed possible side effects of HD tx, such as s/s of hypotension, cramping (during tx and at rare times after tx), n/v, CP or any other concerns. Patient acknowledge understanding of treatment plan. [facility] 2024-08-01 09:38:00 Problem: Falls, Risk of Goal: Absence of falls Outcome: Progressing as expected Problem: Respiratory Function - Impaired Goal: Able to cough effectively Outcome: Progressing as expected Goal: Adequate oxygenation Outcome: Progressing as expected Goal: Adequate work of breathing Outcome: Progressing as expected Problem: Pain Goal: Control of pain at or below patient's documented comfort goal Outcome: Progressing as expected Goal: Reduction in pain sensation Outcome: Progressing as expected Problem: Procedure Routine Goal: Knowledge of procedure Outcome: Progressing as expected Problem: Discharge Planning Goal: Able to perform ADL Outcome: Progressing as expected Goal: Knowledge of medication management Outcome: Progressing as expected Goal: Knowledge of need for follow-up care Outcome: Progressing as expected Goal: Knowledge of personal stroke risk factors Outcome: Progressing as expected Goal: Knowledge of stroke warning signs Outcome: Progressing as expected Goal: Facility placement (SNF, LTAC, LTC) appropriate for patient's abilities. Outcome: Progressing as expected ENT SAFETY OFFICER Mark Degroot RN [facility] 2024-07-31 15:13:53 Problem: Falls, Risk of Goal: Absence of falls Outcome: Progressing as expected Problem: Respiratory Function - Impaired Goal: Able to cough effectively Outcome: Progressing as expected Goal: Adequate oxygenation Outcome: Progressing as expected Goal: Adequate work of breathing Outcome: Progressing as expected Problem: Pain Goal: Control of pain at or below patient's documented comfort goal Outcome: Progressing as expected Goal: Reduction in pain sensation Outcome: Progressing as expected Problem: Procedure Routine Goal: Knowledge of procedure Outcome: Progressing as expected Problem: Discharge Planning Goal: Able to perform ADL Outcome: Progressing as expected Goal: Knowledge of medication management Outcome: Progressing as expected Goal: Knowledge of need for follow-up care Outcome: Progressing as expected Goal: Knowledge of personal stroke risk factors Outcome: Progressing as expected Goal: Knowledge of stroke warning signs Outcome: Progressing as expected Goal: Facility placement (SNF, LTAC, LTC) appropriate for patient's abilities. Outcome: Progressing as expected ENT SAFETY OFFICER Teena Haley Mai, RN [facility] 2024-07-31 09:29:29 Images from the original note were not included. General Vancomycin Note [facility] Clinical Pharmacist Consult Consulting Service: Vancomycin (Pharmacy to Dose) Pharmacy Vancomycin Therapeutic Monitoring Note Patient Name MRN Sex Unit Mayank Hurley [id number] 1945 male VIDA [id number] Indication for vancomycin and goal Age Total Body Weight Pneumonia and c/f septic shock Trough 10-15 mg/L 79 year old Wt Readings from Last 1 Encounters: 07/25/24 111 kg (244 lb 11.4 oz) Primary Physician: Dr. Laura Sherman ID Physician, if following: none Duration of Antibiotics: TBD Concurrent Antibiotics: Meropenem 500 mg IV Q24H (07/27 - 07/29) Microbiology: 07/27 blood: CoNs (2/4 bottles) Laboratory Data and Vancomycin Dosing CREATININE Date/Time Value Ref Range Status 07/29/2024 04:31 AM 2.68 (H) 0.60 - 1.25 mg/dL Final 07/28/2024 04:16 AM 2.23 (H) 0.60 - 1.25 mg/dL Final 07/27/2024 05:53 PM 2.23 (H) 0.60 - 1.25 mg/dL Final 10/16/2014 12:40 PM 0.91 0.60 - 1.25 MG/DL Final 07/09/2013 03:40 PM 1.00 0.60 - 1.25 MG/DL Final 12/25/2012 09:45 AM 0.98 0.60 - 1.25 MG/DL Final Date CrCl (mL/min) CRRT/HD Dosing Regimen and frequency @ Times (mg) Vancomycin Level @ Time (mcg/mL) 07/27/24 20 2800 mL/hr started @0900 750 mg @0439 1250 mg @ 1632 - 07/28/24 35 2800 mL/hr 1500 mg @ 1036 11.3 @ 0416 07/29/24 29.1 Off No dose scheduled 16.9 @0431 07/30/24 HD HD 1000 mg IV @ 1833 14.8 @ 0421 07/31/24 No HD planned 49.7 @ 0538 - - Assessment & Plan No HD planned today. Level of 49.7 is high but unsure if it is true as it is not consistent with response to previous doses. Vancomycin not recommended to be continued per ID after dose yesterday Plan is to: No more vancomycin planned per ID Thank you for allowing pharmacy to participate in the care of this patient. Please feel free to contact us with any questions or concerns. Randolph Vidales RPH, PharmD [facility] Department of Pharmacy - [facility] Phone: GAL: [phone] ENT SAFETY OFFICER Arturo Vidales [facility] 2024-07-30 17:59:36 HEMODIALYSIS NURSING NOTE Number Hours: 4.0 hours Bath: 4K 3 Ca Heparin: None Access: right Catheter permanent IJ Antibiotics/Medications Given: 1256 Midodrine 10 mg PO 1505 Midodrine 5 MG PO prn Complications/Events of Treatment: 1245 BP low 89/59 pre tx - Pt resting and no signs of acute distress. Notified DR. Reinoso and ordered to give early Midodrine 10 mg (due at 1400) and 0 UF - carried out. 1346 BP improved 100/56, pt alert and denies complaints. HD initiated following prescription and monitored closely. 1500 BP 90/60, pt remains asymptomatic. PRN Midodrine 5 mg given po. Pt completed HD tx . Blood returned & cath access packed w/ Heparin then Clear Guard cath caps placed. Prior to leaving pt room after HD tx the bed was placed on lowest position, side rails up x3, & call light placed within reach of pt. Pt appears no signs of acute distress & voiced no complaints. Net UF: 0 mL Weight: Pre HD weight - 105 kg. Post HD weight - 105 kg. Used bed scale. Post Dialysis Treatment: BP 117/86 Pulse 82 Handoff Report: Completed and given verbally at bedside to MARTHA Barry Mode of Transport Back to Unit: Treatment performed at bedside. See hemodialysis flowsheet for further details of the treatment. [facility] 2024-07-30 13:52:36 Problem: Procedure Routine Goal: Knowledge of procedure Outcome: Progressing as expected Note: Hemodialysis Hemodialysis Plan of care reviewed r/t treatment time & UF goal. Also reviewed possible side effects of HD tx, such as s/s of hypotension, cramping (during tx and at rare times after tx), N/V, CP or any other concerns. Patient acknowledge understanding of treatment plan. [facility] 2024-07-30 10:13:[address] Nicole and faxed back to [facility] [employer]. A Lantigua RN [facility] 2024-07-30 09:41:49 Images from the original note were not included. General Vancomycin Note [facility] Clinical Pharmacist Consult Consulting Service: Vancomycin (Pharmacy to Dose) Pharmacy Vancomycin Therapeutic Monitoring Note Patient Name YAKOV DSOUZA Sex Unit Mayank Hurley [id number] 1945 male VIDA [id number] Indication for vancomycin and goal Age Total Body Weight Pneumonia and c/f septic shock Trough 10-15 mg/L 79 year old Wt Readings from Last 1 Encounters: 07/25/24 111 kg (244 lb 11.4 oz) Primary Physician: Dr. Laura Sherman ID Physician, if following: none Duration of Antibiotics: TBD Concurrent Antibiotics: Meropenem 500 mg IV Q24H (07/27 - 07/29) Microbiology: 07/27 blood: CoNs (2/ bottles) Laboratory Data and Vancomycin Dosing CREATININE Date/Time Value Ref Range Status 07/29/2024 04:31 AM 2.68 (H) 0.60 - 1.25 mg/dL Final 07/28/2024 04:16 AM 2.23 (H) 0.60 - 1.25 mg/dL Final 07/27/2024 05:53 PM 2.23 (H) 0.60 - 1.25 mg/dL Final 10/16/2014 12:40 PM 0.91 0.60 - 1.25 MG/DL Final 07/09/2013 03:40 PM 1.00 0.60 - 1.25 MG/DL Final 12/25/2012 09:45 AM 0.98 0.60 - 1.25 MG/DL Final Date CrCl (mL/min) CRRT/HD Dosing Regimen and frequency @ Times (mg) Vancomycin Level @ Time (mcg/mL) 07/27/24 20 2800 mL/hr started @0900 750 mg @0439 1250 mg @ 1632 - 07/28/24 35 2800 mL/hr 1500 mg @ 1036 11.3 @ 0416 07/29/24 29.1 Off No dose scheduled 16.9 @0431 07/30/24 HD HD planned 14.8 @ 0421 - - - Assessment & Plan Patient to receive 3 hours of hemodialysis today. PreHD level is 14.8 with an estimated postHD level of 11.1 Plan is to: Give vancomycin 1000 mg IV postHD today Will check another level tomorrow @ 0400 Thank you for allowing pharmacy to participate in the care of this patient. Please feel free to contact us with any questions or concerns. Randolph Vidales RPH, PharmD [facility] Department of Pharmacy [facility] [place] Phone: GAL: [phone] [facility] 2024-07-30 04:45:56 Problem: Falls, Risk of Goal: Absence of falls Outcome: Progressing as expected Problem: Respiratory Function - Impaired Goal: Able to cough effectively Outcome: Progressing as expected Goal: Adequate oxygenation Outcome: Progressing as expected Goal: Adequate work of breathing Outcome: Progressing as expected Problem: Pain Goal: Control of pain at or below patient's documented comfort goal Outcome: Progressing as expected Goal: Reduction in pain sensation Outcome: Progressing as expected Problem: Procedure Routine Goal: Knowledge of procedure Outcome: Progressing as expected Problem: Discharge Planning Goal: Able to perform ADL Outcome: Progressing as expected Goal: Knowledge of medication management Outcome: Progressing as expected Goal: Knowledge of need for follow-up care Outcome: Progressing as expected Goal: Knowledge of personal stroke risk factors Outcome: Progressing as expected Goal: Knowledge of stroke warning signs Outcome: Progressing as expected Goal: Facility placement (SNF, LTAC, LTC) appropriate for patient's abilities. Outcome: Progressing as expected [facility] 2024-07-29 15:46:29 Problem: Falls, Risk of Goal: Absence of falls Outcome: Progressing as expected Problem: Respiratory Function - Impaired Goal: Able to cough effectively Outcome: Progressing as expected Goal: Adequate oxygenation Outcome: Progressing as expected Goal: Adequate work of breathing Outcome: Progressing as expected Problem: Pain Goal: Control of pain at or below patient's documented comfort goal Outcome: Progressing as expected Goal: Reduction in pain sensation Outcome: Progressing as expected Problem: Procedure Routine Goal: Knowledge of procedure Outcome: Progressing as expected Problem: Discharge Planning Goal: Able to perform ADL Outcome: Progressing as expected Goal: Knowledge of medication management Outcome: Progressing as expected Goal: Knowledge of need for follow-up care Outcome: Progressing as expected Goal: Knowledge of personal stroke risk factors Outcome: Progressing as expected Goal: Knowledge of stroke warning signs Outcome: Progressing as expected Goal: Facility placement (SNF, LTAC, LTC) appropriate for patient's abilities. Outcome: Progressing as expected ENT SAFETY OFFICER Asha Senior RN [facility] 2024-07-29 10:49:09 Images from the original note were not included. General Vancomycin Note [facility] Clinical Pharmacist Consult Consulting Service: Vancomycin (Pharmacy to Dose) Pharmacy Vancomycin Therapeutic Monitoring Note Patient Name YAKOV Sex Unit Mayank Hurley [id number] 1945 male VIDA [id number] Indication for vancomycin and goal Age Total Body Weight Pneumonia and c/f septic shock Trough 10-15 mg/L 79 year old Wt Readings from Last 1 Encounters: 07/25/24 111 kg (244 lb 11.4 oz) Primary Physician: Dr. Laura Sherman ID Physician, if following: none Duration of Antibiotics: TBD Concurrent Antibiotics: Meropenem 500 mg IV Q24H (07/27 - ) Microbiology: 07/27 blood: CoNs (2/4 bottles) Laboratory Data and Vancomycin Dosing CREATININE Date/Time Value Ref Range Status 07/29/2024 04:31 AM 2.68 (H) 0.60 - 1.25 mg/dL Final 07/28/2024 04:16 AM 2.23 (H) 0.60 - 1.25 mg/dL Final 07/27/2024 05:53 PM 2.23 (H) 0.60 - 1.25 mg/dL Final 10/16/2014 12:40 PM 0.91 0.60 - 1.25 MG/DL Final 07/09/2013 03:40 PM 1.00 0.60 - 1.25 MG/DL Final 12/25/2012 09:45 AM 0.98 0.60 - 1.25 MG/DL Final Date CrCl (mL/min) CRRT Dosing Regimen and frequency @ Times (mg) Vancomycin Level @ Time (mcg/mL) 07/27/24 20 2800 mL/hr started @0900 750 mg @0439 1250 mg @ 1632 - 07/28/24 35 2800 mL/hr 1500 mg @ 1036 11.3 @ 0416 07/29/24 29.1 Off No dose scheduled 16.9 @0431 - - - - Assessment & Plan Patient was loaded with 2000 mg on 07/27/24. CRRT has clotted off and is not currently running this morning. Plan is to: Given the vancomycin level was 16.9 mcg/mL this morning, will not give vancomycin today. Will plan to draw a vancomycin level tomorrow morning (07/30/24) at 0400. Thank you for allowing pharmacy to participate in the care of this patient. Please feel free to contact us with any questions or concerns. Sean Benito [facility], PharmD [facility] Department of Pharmacy [facility] [place] Phone: GAL: [phone] [facility] Maria Elena Benito [facility] 2024-07-29 06:12:02 Problem: Falls, Risk of Goal: Absence of falls Outcome: Progressing as expected Problem: Respiratory Function - Impaired Goal: Able to cough effectively Outcome: Progressing as expected Goal: Adequate oxygenation Outcome: Progressing as expected Goal: Adequate work of breathing Outcome: Progressing as expected Problem: Pain Goal: Control of pain at or below patient's documented comfort goal Outcome: Progressing as expected Goal: Reduction in pain sensation Outcome: Progressing as expected Problem: Procedure Routine Goal: Knowledge of procedure Outcome: Progressing as expected Problem: Discharge Planning Goal: Able to perform ADL Outcome: Progressing as expected Goal: Knowledge of medication management Outcome: Progressing as expected Goal: Knowledge of need for follow-up care Outcome: Progressing as expected Goal: Knowledge of personal stroke risk factors Outcome: Progressing as expected Goal: Knowledge of stroke warning signs Outcome: Progressing as expected Goal: Facility placement (SNF, LTAC, LTC) appropriate for patient's abilities. Outcome: Progressing as expected [facility] 2024-07-28 09:39:57 Images from the original note were not included. General Vancomycin Note [facility] Clinical Pharmacist Consult Consulting Service: Vancomycin (Pharmacy to Dose) Pharmacy Vancomycin Therapeutic Monitoring Note Patient Name YAKOV DSOUZA Sex Unit Mayank Hurley [id number] 1945 male VIDA [id number] Indication for vancomycin and goal Age Total Body Weight Pneumonia and c/f septic shock Trough 10-15 mg/L 79 year old Wt Readings from Last 1 Encounters: 07/25/24 111 kg (244 lb 11.4 oz) Primary Physician: Dr. Laura Sherman ID Physician, if following: none Duration of Antibiotics: TBD Concurrent Antibiotics: Meropenem 500 mg IV Q24H (07/27 - ) Microbiology: 07/27 blood: CoNs (/ bottles) Laboratory Data and Vancomycin Dosing CREATININE Date/Time Value Ref Range Status 07/28/2024 04:16 AM 2.23 (H) 0.60 - 1.25 mg/dL Final 07/27/2024 05:53 PM 2.23 (H) 0.60 - 1.25 mg/dL Final 07/27/2024 05:25 AM 3.90 (H) 0.60 - 1.25 mg/dL Final 10/16/2014 12:40 PM 0.91 0.60 - 1.25 MG/DL Final 07/09/2013 03:40 PM 1.00 0.60 - 1.25 MG/DL Final 12/25/2012 09:45 AM 0.98 0.60 - 1.25 MG/DL Final Date CrCl (mL/min) CRRT Dosing Regimen and frequency @ Times (mg) Vancomycin Level @ Time (mcg/mL) 07/27/24 20 2800 mL/hr started @0900 750 mg @0439 1250 mg @ 1632 - 07/28/24 35 2800 mL/hr 1500 mg scheduled for 0915 11.3 @ 0416 - - - - - Assessment & Plan Patient was loaded with 2000 mg yesterday, 07/27/24. Patient clearing vancomycin efficiently as level from 0416 this morning was 11.3 ug/mL. Given that patient is on CRRT, will continue to spot dose vancomycin daily. Plan is to: Give maintenance dose of vancomycin 1500 mg once today, 07/28/24 Plan to draw level on: _07/29/24_ @ _0600 Thank you for allowing pharmacy to participate in the care of this patient. Please feel free to contact us with any questions or concerns. Sabrina Lua RPH, PharmD [facility] Department of Pharmacy [facility] [place] Phone: GAL: [phone] ENT SAFETY OFFICER Sabrina Lua [facility] 2024-07-28 06:34:00 CONTINUOUS RENAL REPLACEMENT THERAPY NURSING NOTE Treatment started: 07/28/2024 5:27 AM Blood flow rate: 250 mL/min Dialysate flow rate: 2800 mL/hr Dialysate: 2K Prismasol Predilution solution and rate of infusion: 200 mL/hour Anticoagulation: none ordered PFR settin-200 mL/hour Net PFR target: 0 mL/hour Access used: right catheter temporary subclavian Line secured. Report given, settings reviewed and understanding acknowledged by Malissa Gagnon RN, ICU nurse. ENT SAFETY OFFICER Malissa Gagnon RN [facility] 2024-07-28 05:42:20 Problem: Falls, Risk of Goal: Absence of falls Outcome: Progressing as expected Problem: Respiratory Function - Impaired Goal: Able to cough effectively Outcome: Progressing as expected Goal: Adequate oxygenation Outcome: Progressing as expected Goal: Adequate work of breathing Outcome: Progressing as expected Problem: Pain Goal: Control of pain at or below patient's documented comfort goal Outcome: Progressing as expected Goal: Reduction in pain sensation Outcome: Progressing as expected Problem: Procedure Routine Goal: Knowledge of procedure Outcome: Progressing as expected Problem: Discharge Planning Goal: Able to perform ADL Outcome: Progressing as expected Goal: Knowledge of medication management Outcome: Progressing as expected Goal: Knowledge of need for follow-up care Outcome: Progressing as expected Goal: Knowledge of personal stroke risk factors Outcome: Progressing as expected Goal: Knowledge of stroke warning signs Outcome: Progressing as expected Goal: Facility placement (SNF, LTAC, LTC) appropriate for patient's abilities. Outcome: Progressing as expected [facility] 2024-07-27 18:45:37 CONTINUOUS RENAL REPLACEMENT THERAPY NURSING NOTE Treatment started: 07/27/2024 6:45 PM Blood flow rate: 250 mL/min Dialysate flow rate: 2800 mL/hr Dialysate: 2K Prismasol Predilution solution and rate of infusion: 150 mL/hour Anticoagulation: no ordered anticoagulant PFR settin-150 mL/hour Net PFR target: 0 mL/hour Access used: right catheter temporary subclavian Line secured. Report given, settings reviewed and understanding acknowledged by Zion THOMAS, ICU nurse. [facility] 2024-07-27 11:34:01 Images from the original note were not included. General Vancomycin Note [facility] Clinical Pharmacist Consult Consulting Service: Vancomycin (Pharmacy to Dose) Pharmacy Vancomycin Therapeutic Monitoring Note Patient Name MRLori Sex Unit Mayank Hurley [id number] 1945 male VIDA [id number] Indication for vancomycin and goal Age Total Body Weight Pneumonia and c/f septic shock Trough 10-15 mg/L 79 year old Wt Readings from Last 1 Encounters: 07/25/24 111 kg (244 lb 11.4 oz) Primary Physician: Dr. Laura Sherman ID Physician, if following: none Duration of Antibiotics: TBD Concurrent Antibiotics: Meropenem 500 mg IV Q24H (07/27 - ) Microbiology: 07/27 blood: in process Laboratory Data and Vancomycin Dosing CREATININE Date/Time Value Ref Range Status 07/27/2024 05:25 AM 3.90 (H) 0.60 - 1.25 mg/dL Final 07/27/2024 03:14 AM 3.62 (H) 0.60 - 1.25 mg/dL Final 07/27/2024 12:28 AM 3.78 (H) 0.60 - 1.25 mg/dL Final 10/16/2014 12:40 PM 0.91 0.60 - 1.25 MG/DL Final 07/09/2013 03:40 PM 1.00 0.60 - 1.25 MG/DL Final 12/25/2012 09:45 AM 0.98 0.60 - 1.25 MG/DL Final Date CrCl (mL/min) CRRT Dosing Regimen and frequency @ Times (mg) Vancomycin Level @ Time (mcg/mL) 07/27 19 2800 mL/hr started @0900 750 mg @0439 1250 mg scheduled for 1615 - - - - - - - Assessment & Plan Patient was given 750 mg of vancomycin earlier this morning @0439. CRRT was started at 0900. When on CRRT, patient is to be loaded with 20 mg/kg of vancomycin; therefore ordered another 1 time dose of 1250 mg, to give a total of 2000 mg today, 07/27/24. Given that patient is on CRRT, will spot dose vancomycin daily. Plan is to: Complete vancomycin loading dose by giving 1250 mg x1 today, 07/27/24. Plan to draw level on: _07/28/24_ @ _0500 Thank you for allowing pharmacy to participate in the care of this patient. Please feel free to contact us with any questions or concerns. Sabrina Lua RPH, PharmD [facility] Department of Pharmacy [facility] [place] Phone: GAL: [phone] [facility] 2024-07-27 04:42:18 Problem: Falls, Risk of Goal: Absence of falls Outcome: Not progressing as expected Problem: Respiratory Function - Impaired Goal: Able to cough effectively Outcome: Not progressing as expected Goal: Adequate oxygenation Outcome: Not progressing as expected Goal: Adequate work of breathing Outcome: Not progressing as expected Problem: Pain Goal: Control of pain at or below patient's documented comfort goal Outcome: Not progressing as expected Goal: Reduction in pain sensation Outcome: Not progressing as expected Problem: Procedure Routine Goal: Knowledge of procedure Outcome: Not progressing as expected Problem: Discharge Planning Goal: Able to perform ADL Outcome: Not progressing as expected Goal: Knowledge of medication management Outcome: Not progressing as expected Goal: Knowledge of need for follow-up care Outcome: Not progressing as expected Goal: Knowledge of personal stroke risk factors Outcome: Not progressing as expected Goal: Knowledge of stroke warning signs Outcome: Not progressing as expected Goal: Facility placement (SNF, LTAC, LTC) appropriate for patient's abilities. Outcome: Not progressing as expected A Hart RN [facility] 2024-07-27 04:16:07 Images from the original note were not included. Benzol Operator - New Start Vancomycin Note [facility] Clinical Pharmacist Consult Consulting Service: Vancomycin (Pharmacy to Dose) Brief Pharmacy Note Patient Name YAKOV DSOUZA Sex Unit Mayank Hurley [id number] 1945 male VIDA [id number] Indication for vancomycin and goal Age Total Body Weight Pneumonia and SSTI AUC/RADHA 400-600 mcg*hr/ mL 79 year old Wt Readings from Last 1 Encounters: 07/25/24 111 kg (244 lb 11.4 oz) Pharmacy was consulted to manage patient's vancomycin therapy. The following changes were made to the patient s regimen: A formal note will be documented in the morning. Pharmacy will continue to follow. Please call pharmacy with questions or concerns. Ne Lee RPH, PharmD [facility] Department of Pharmacy [facility] [place] Phone: GAL: [phone] A Lee Melo [facility] 2024-07-26 18:21:49 Problem: Falls, Risk of Goal: Absence of falls Outcome: Progressing as expected Problem: Respiratory Function - Impaired Goal: Able to cough effectively Outcome: Progressing as expected Goal: Adequate oxygenation Outcome: Progressing as expected Goal: Adequate work of breathing Outcome: Progressing as expected Problem: Pain Goal: Control of pain at or below patient's documented comfort goal Outcome: Progressing as expected Goal: Reduction in pain sensation Outcome: Progressing as expected Problem: Procedure Routine Goal: Knowledge of procedure Outcome: Progressing as expected Problem: Discharge Planning Goal: Able to perform ADL Outcome: Progressing as expected Goal: Knowledge of medication management Outcome: Progressing as expected Goal: Knowledge of need for follow-up care Outcome: Progressing as expected Goal: Knowledge of personal stroke risk factors Outcome: Progressing as expected Goal: Knowledge of stroke warning signs Outcome: Progressing as expected Goal: Facility placement (SNF, LTAC, LTC) appropriate for patient's abilities. Outcome: Progressing as expected ENT SAFETY OFFICER Tayla Sheikh RN [facility] 2024-07-26 01:39:08 Problem: Falls, Risk of Goal: Absence of falls Outcome: Progressing as expected Problem: Respiratory Function - Impaired Goal: Able to cough effectively Outcome: Progressing as expected Goal: Adequate oxygenation Outcome: Progressing as expected Goal: Adequate work of breathing Outcome: Progressing as expected Problem: Pain Goal: Control of pain at or below patient's documented comfort goal Outcome: Progressing as expected Goal: Reduction in pain sensation Outcome: Progressing as expected Problem: Procedure Routine Goal: Knowledge of procedure Outcome: Progressing as expected ENT SAFETY OFFICER [facility] 2024-07-25 19:25:11 HEMODIALYSIS NURSING NOTE Number Hours: 4.0 hours Bath: 2K 3 Calcium (standard dialysate) Heparin: zero Access: right Catheter permanent IJ Net UF: 3000 mL Weight: pre 114 kg, post 111 kg Post BP 143/65 Post Pulse 99 Antibiotics/Medications Given: Midodrine 10 mg PO @ 1518 Complications/Events of Treatment: None, treatment well tolerated. Dressing changed using sterile gauze and tape d/t skin around the site is excoriated. Patient verbalized itching with tegaderm dressing. Handoff report completed and attached to Patient Chart Mode of Transport Back to Unit: bed, oxygen, and accompanied by transporter See hemodialysis flowsheet for details of treatment. A Dominguez RN [facility] 2024-07-25 16:12:15 Problem: Procedure Routine Goal: Knowledge of procedure Outcome: Progressing as expected Hemodialysis Plan of care reviewed r/t treatment time, UF goal, dry wgt and fluid restrictions. Also reviewed care of dialysis access during tx. Pt updated during tx as needed with teaching done. Also reviewed possible side effects of HD tx, such as s/s of hypotension, cramping (during tx and at rare times after tx), n/v, CP or any other concerns. Patient acknowledge understanding of treatment plan. [facility] 2024-07-25 13:17:00 Problem: Falls, Risk of Goal: Absence of falls Outcome: Progressing as expected Problem: Respiratory Function - Impaired Goal: Able to cough effectively Outcome: Progressing as expected Goal: Adequate oxygenation Outcome: Progressing as expected Goal: Adequate work of breathing Outcome: Progressing as expected Problem: Pain Goal: Control of pain at or below patient's documented comfort goal Outcome: Progressing as expected Goal: Reduction in pain sensation Outcome: Progressing as expected Problem: Procedure Routine Goal: Knowledge of procedure Outcome: Progressing as expected [facility] 2024-07-25 12:20:07 Summary: A/V Wire removal Printed strip of rhythm for pre a/v wire pull. Cleansed site with CHG, snipped sutures and pulled both sets of wires. Dressed site with gauze and tegaderm. Scant amount of bleeding noted from sites. Marked on dressing after holding pressure for 5min. Printed post wire pull strip that compared to previous prepull strip. Filed strips in chart. [facility] Ne Beach RN [facility] 2024-07-25 02:41:39 Problem: Falls, Risk of Goal: Absence of falls Outcome: Progressing as expected Problem: Respiratory Function - Impaired Goal: Able to cough effectively Outcome: Progressing as expected Goal: Adequate oxygenation Outcome: Progressing as expected Goal: Adequate work of breathing Outcome: Progressing as expected Problem: Pain Goal: Control of pain at or below patient's documented comfort goal Outcome: Progressing as expected Goal: Reduction in pain sensation Outcome: Progressing as expected Problem: Procedure Routine Goal: Knowledge of procedure Outcome: Progressing as expected A Lutz RN [facility] 2024-07-24 17:37:53 Problem: Falls, Risk of Goal: Absence of falls Outcome: Progressing as expected Problem: Respiratory Function - Impaired Goal: Able to cough effectively Outcome: Progressing as expected Goal: Adequate oxygenation Outcome: Progressing as expected Goal: Adequate work of breathing Outcome: Progressing as expected Problem: Pain Goal: Control of pain at or below patient's documented comfort goal Outcome: Progressing as expected Goal: Reduction in pain sensation Outcome: Progressing as expected Problem: Procedure Routine Goal: Knowledge of procedure Outcome: Progressing as expected A Shahid RN [facility] 2024-07-24 02:24:51 Problem: Falls, Risk of Goal: Absence of falls Outcome: Progressing as expected Problem: Respiratory Function - Impaired Goal: Able to cough effectively Outcome: Progressing as expected Goal: Adequate oxygenation Outcome: Progressing as expected Goal: Adequate work of breathing Outcome: Progressing as expected Problem: Pain Goal: Control of pain at or below patient's documented comfort goal Outcome: Progressing as expected Goal: Reduction in pain sensation Outcome: Progressing as expected Problem: Procedure Routine Goal: Knowledge of procedure Outcome: Progressing as expected A Anaya RN [facility] 2024-07-23 13:32:50 Problem: Falls, Risk of Goal: Absence of falls Outcome: Progressing as expected Problem: Respiratory Function - Impaired Goal: Able to cough effectively Outcome: Progressing as expected Goal: Adequate oxygenation Outcome: Progressing as expected Goal: Adequate work of breathing Outcome: Progressing as expected Problem: Respiratory Function - Impaired Goal: Adequate oxygenation Outcome: Progressing as expected Problem: Pain Goal: Control of pain at or below patient's documented comfort goal Outcome: Progressing as expected Goal: Reduction in pain sensation Outcome: Progressing as expected Problem: Procedure Routine Goal: Knowledge of procedure Outcome: Progressing as expected [facility] Amy Leon RN [facility] 2024-07-23 04:53:17 Problem: Falls, Risk of Goal: Absence of falls Outcome: Progressing as expected Problem: Respiratory Function - Impaired Goal: Able to cough effectively Outcome: Progressing as expected Goal: Adequate oxygenation Outcome: Progressing as expected Goal: Adequate work of breathing Outcome: Progressing as expected Problem: Pain Goal: Control of pain at or below patient's documented comfort goal Outcome: Progressing as expected Goal: Reduction in pain sensation Outcome: Progressing as expected Problem: Procedure Routine Goal: Knowledge of procedure Outcome: Progressing as expected [facility] 2024-07-23 04:36:23 HEMODIALYSIS NURSING NOTE Number Hours: 3.0 hours Bath: 3K 3 Calcium Heparin: zero Access: right Catheter permanent subclavian Net UF: 1.0 L Weight: pre -- kg, post -- kg (Unable to verify pt's weight due to discrepancy from previous weight documented, Current wt 108.7 kg, Previous wt 93.7 kg) Post HD: BP 114/58 Pulse 93 Antibiotics/Medications Given: None Complications/Events of Treatment: Pt HD catheter clean, no signs of infection, & dressing intact, Changed at 07/23/2024. Both cath ports able to aspirate & flush briskly. Treatment completed. Blood returned. Cath access packed w/ Heparin, clamped & capped. Pt's vital signs stable, safety precautions maintained. Handoff report: Completed and given verbally at bedside to MARTHA Ferguson Mode of Transport Back to Unit: NA - patient done at bedside See hemodialysis flowsheet for further details of the treatment. [facility] 2024-07-23 01:36:24 Problem: Procedure Routine Goal: Knowledge of procedure Outcome: Progressing as expected Hemodialysis Plan of care reviewed r/t treatment time, UF goal, dry wgt and fluid restrictions. Also reviewed care of dialysis access during tx. Pt updated during tx as needed with teaching done. Also reviewed possible side effects of HD tx, such as s/s of hypotension, cramping (during tx and at rare times after tx), n/v, CP or any other concerns. Patient acknowledge understanding of treatment plan. [facility] 2024-07-22 13:23:30 CKD-4 Mild thrombocytopenia Chronic HFrEF Fabian Chappell MD CT Surgery Fellow, PGY-7 [facility] 2024-07-22 00:13:11 Problem: Falls, Risk of Goal: Absence of falls Outcome: Progressing as expected Problem: Respiratory Function - Impaired Goal: Able to cough effectively Outcome: Progressing as expected Goal: Adequate oxygenation Outcome: Progressing as expected Goal: Adequate work of breathing Outcome: Progressing as expected Problem: Pain Goal: Control of pain at or below patient's documented comfort goal Outcome: Progressing as expected [facility] Odalys Chandler RN [facility] 2024-07-20 21:30:35 Problem: Falls, Risk of Goal: Absence of falls Outcome: Progressing as expected Problem: Respiratory Function - Impaired Goal: Able to cough effectively Outcome: Progressing as expected Goal: Adequate oxygenation Outcome: Progressing as expected Goal: Adequate work of breathing Outcome: Progressing as expected [facility] 2024-07-20 11:30:05 Problem: Respiratory Function - Impaired Goal: Able to cough effectively Outcome: Progressing as expected Goal: Adequate oxygenation Outcome: Progressing as expected Goal: Adequate work of breathing Outcome: Progressing as expected [facility] [place] RT [facility] 2024-07-20 01:14:18 CONTINUOUS RENAL REPLACEMENT THERAPY NURSING NOTE Treatment started: 07/20/2024 1:14 AM Blood flow rate: 250 mL/min Dialysate flow rate: 2300 mL/hour Dialysate: 2K Prismasol Predilution solution and rate of infusion: 150 mL/hour Anticoagulation: zero PFR settin mL/hour Net PFR target: 0 mL/hour Access used: right catheter permanent subclavian Line secured. Report given, settings reviewed and understanding acknowledged by STANLEY, ICU nurse. ENT SAFETY OFFICER Stanley Moore RN [facility] 2024-07-19 11:13:54 Orders for cath supplies received from [employer]. Forms placed in Dr Nicole's folder for signature. ENT SAFETY OFFICER Laura Lantigua RN [facility] 2024-07-19 09:15:05 Received detailed written order forms from [employer], uploaded to chart under media for review. ENT SAFETY OFFICER Eri Campo [facility] 2024-07-19 00:02:00 FACULTY SURGEON: Laura Sherman MD RESIDENT SURGEON: MANUFACTURING TEST ENGINEER OR TEACHING RESIDENT: FABIAN CHAPPELL MD PREOPERATIVE DIAGNOSIS: 1. Mixed aortic stenosis and regurgitation. 2. Coronary artery disease. 3. Ascending aortic aneurysm. POSTOPERATIVE DIAGNOSIS: 1. Mixed aortic stenosis and regurgitation. 2. Coronary artery disease. 3. Ascending aortic aneurysm. OPERATION: 1. Aortic valve replacement with [address] Milad Max tissue prosthesis. 2. Supra-coronary tube graft to replace ascending aorta. 3. Coronary artery bypass x2. INDICATIONS: The patient is an 79-year-old man with exertional dyspnea. He has a roughly 4.8 cm diameter ascending aorta and at least moderate aortic valve regurgitation and stenosis. He also has significant LAD and diagonal disease. He has about a 40% ejection fraction. He is taken for elective repair. Of note, he has recurrent bladder outlet obstruction and from this has had renal failure on and off for the last few years from obstruction. He is currently on dialysis through a right subclavian tunneled catheter. PROCEDURE: He was anesthetized and orotracheally intubated without incident. We used a median sternotomy and took the left internal mammary down as a skeletonized free graft. We chose a free graft because he may be getting a left arm dialysis shunt down the road. Simultaneously, Alycia Self RN, harvested greater saphenous vein from the upper part of the left leg using endoscopic technique. We cannulated the underside of the arch and the right atrium and the aorta from pulmonary artery. We went on bypass and then placed a vent via the right upper pulmonary vein. We cooled the patient, crossclamped the aorta, and gave retrograde then direct antegrade cardioplegia. We gave cardioplegia every 15 to 20 minutes while clamped, mostly retrograde. We resected the aorta to just above the sinotubular junction and just below the clamp and placed stay stitches in the commissures. The valve was trileaflet and calcific. We excised the leaflets and spent a few minutes decalcifying the annulus. We then irrigated copiously. We placed pledgeted valve sutures from the bottom to top or ventricle toward aorta and passed these through the sewing ring of the [address] Milad Max tissue prosthesis. This seated nicely and once it was tied in, we went all the way around with a 1-mm probe and found no leak. We then cut a 30 mm graft with a slight bevel and anastomosed this to the aorta at about the sinotubular junction. We pressurized this and placed one repair stitch. We cut our graft to length and anastomosed it to the distal aorta with a running whipstitch of Prolene. We then placed a vent in the graft and placed 1 leftward-going vein graft proximal anastomosis in the graft. We made a perpendicular end-to-side anastomosis of our free mammary graft to the side of the vein. The vein graft distal anastomosis was then made to the 1.5 mm diagonal and the mammary artery anastomosis made to the 1.5 mm LAD. We then de-aired the heart and with the head down, and the ascending aorta opened to gravity, released the aortic crossclamp. While rewarming, we placed right atrial and right ventricular epicardial pacing wires, as well as 2 mediastinal and 1 left pleural drain. Once he was warmed and all the air was out by echo, we weaned from bypass with atrial pacing and low-dose dobutamine. He tolerated protamine well and decannulation was uneventful. We closed routinely. He tolerated the procedure well. MD KATIE Lawson/[employer] J#: [id number] ENT SAFETY OFFICER TS-THORACIC SURGERY (CARDIOTHORACIC VASCULAR SURGERY) STAFF [facility] 2024-07-17 16:00:00 Addended by: MARIA C BAILEY MD on: 07/17/2024 10:40 PM Modules accepted: Level of Service ENT SAFETY OFFICER IM-ADVANCED HEART FAILURE & TRANSPLANT CARDIOLOGY STAFF [facility] 2024-07-12 10:28:14 Images from the original note were not included. Urine Culture 10,000 - 100,000 CFU/mL mixed aerobic organisms - suggests endogenous microbial contamination >100,000 CFU/mL Stenotrophomonas maltophilia Abnormal Resulting Agency: Susceptibility Stenotrophomonas maltophilia SUSCEPTIBILITY TESTING Trimethoprim/Sulfamethoxazol e <=0.5/9.5 ?... Susceptible Linear View Susceptibility Comments Stenotrophomonas maltophilia In vitro susceptibility testing of S. maltophilia is limited. TMP/SMX is generally the most active agent, but monotherapy is sometimes insufficient. Consult infectious disease faculty for appropriate advice. Discussed with Dr. Sherman. Will send rx to [facility]. Proceed with surgery 07/19/24. Laya LAN PA-C Physician Graphic Art Sales Representative, Cardiothoracic Surgery Office [phone] ENT SAFETY OFFICER [facility] 2024-07-09 10:00:00 Images from the original note were not included. Patient has been identified by and name and was provided with cup, antiseptic towelette, and clean catch instructions. 1 urine specimen(s) sent. Unpreserved Urine Culture 1 Aptima tube Other urine [facility] 2024-07-04 10:26:39 Spoke with the patient via phone and informed him that he wasn't scheduled for a catheter change until 07/22/2024. The last cath change was on June 21, 2024. The patient communicates and understands. Patient denied any troubles or concerns with the catheter. Denies having any pain, fever, chills, or discomfort. Catheter is draining well. [facility] Beena Galarza MA [facility] 2024-07-04 09:32:30 Addended by: KAITLYNN WADE on: 07/04/2024 09:32 AM Modules accepted: Orders [facility] 2024-07-04 09:30:[address] Sherman. Will recheck urine culture after 07/09 and post case for 07/19. Patient aware of plan. Laya LAN PA-C Physician Graphic Art Sales Representative, Cardiothoracic Surgery Office [phone] [facility] 2024-07-04 08:51:46 Patient called and stated that his surgery was canceled due to urine sample results. He is wanting to know if he can come in for cath check or change and patch keeps coming loose. Please call pt to [phone]. 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 His preop urine culture was + for pseudomonas. No susceptibility available yet. Explained that we do not want to risk infecting prosthetic valve and aortic graft. Prev infection 05/2024 with same, treated with cipro. Will send rx to patient's pharmacy. Will contact patient with new surgery date. Patient med list showes fluconazole as historic med. Patient reports he is not taking fluconazole at this time. It was given at his dialysis center in the past. Laya LAN PA-C Physician Graphic Art Sales Representative, Cardiothoracic Surgery Office [phone] [facility] 2024-07-02 09:46:57 Patient seen in clinic today 07/02/24 and POC discussed with Dr Nicole. ENT SAFETY OFFICER Mary Young RN [facility] 2024-07-01 12:00:00 Images from the original note were not included. Patient has been identified by and was provided with cup, antiseptic towelette, and clean catch instructions. 1 urine specimen(s) sent. Unpreserved Urine Culture 1 Aptima tube Other urine [facility] 2024-07-01 09:51:45 Patient called and stated that he has a urinalysis order pending for an upcoming procedure. He was told to have it done today but he has a cath and is not sure if he needs to go to lab or does he need to see a nurse for urine culture. Please call pt to [phone]. ENT SAFETY OFFICER Eri Campo [facility] 2024-06-28 09:04:55 Addended by: MARY YOUNG RN on: 06/28/2024 09:04 AM Modules accepted: Orders [facility] 2024-06-28 09:04:44 Orders faxed as requested. [facility] 2024-06-27 15:08:46 yes ENT SAFETY OFFICER URO-UROLOGY STAFF [facility] 2024-06-26 12:14:44 Mayank Hurley is a 79 year old male Jose with [facility] is calling requesting orders. Please contact when available at [phone](main number) ENT SAFETY OFFICER Marissa Loredo [facility] 2024-06-24 10:32:00 Regarding: please send Rx Entresto to [facility] in [place] ----- Message from Patient Laborer Tanbark sent at 06/24/2024 10:23 AM PATIENT SAFETY OFFICER ----- Mayank Hurley is a 79 year old male calling Pt needs RX sacubitriL-valsartan 24-26 mg tablet Sent to [facility] in [place]. Pt is out of medication. He has one refill left. He uses [facility] & it is closed. [facility] Pharm[facility] [place] [address] AT [place] [address] [facility] 2024-06-24 10:32:00 Reason for Disposition [1] Prescription prescribed recently is not at pharmacy AND [2] triager has access to patient's EMR AND [3] prescription is recorded in the EMR Protocols used: Medication Refill and Renewal [id number] Nurse Note: pt spouse calling to have valsartan sent to [facility] pharmacy since [facility] pharmacy is closed. Per ambulatory guidelines, this RN was able to send to requested pharmacy. Access Center Linda Clark RN [facility] 2024-06-21 15:49:37 [facility] Contact details for patients [facility] in case catheter orders are required. 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 Please confirm with PSS the best date, time, and location to set the nurse visit. A Dumas [facility] 2024-06-13 16:52:12 Daughter notified to contact office when patient had completed all cardiac appointments and we can assist patient with rescheduling urological surgery. Daughter verbalizes understanding. A Marquez RN [facility] 2024-06-07 13:35:00 06/07/2024 Spoke to Mrs. Hurley. We have not scheduled patient for surgery yet. Dr Sherman is out of the office. I will discuss with him and get back to her with a date/plan for surgery. Also explained that financial office will contact her after he is scheduled to discuss any pmt due. Laya LAN PA-C Physician Graphic Art Sales Representative, Cardiothoracic Surgery Office [phone] ENT SAFETY OFFICER COURTNEY-PHYSICIAN MANUFACTURING TEST ENGINEER MIDLEVEL PROVIDER [facility] 2024-06-07 12:59:27 Mayank Hurley is a 79 year old male Pt's calling and states that pt is going to have a procedure on the 06/17/[address] Sherman. No procedure or surgery scheduled in pt's chart. states that they told her at the hospital that he will be having open heart surgery and valve anesyrum surgery. is asking when procedure will be done and how much will it cost. Please advise. PH: [phone] A Sarabia [facility] 2024-06-06 13:23:26 Contact patient to let him know he can come to the [place] office for a leg bag. 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 Patient informed staff are in [place] today. Patient states he will call again tomorrow to see if he can go to [facility] for leg bag. Encouraged patient to call if he had any further needs. ENT SAFETY OFFICER Tracy Marquez RN [facility] 2024-06-06 11:55:45 Patient called and stated that he was released from hospital yesterday with an overnight urine bag, he wants to know if he can have a leg cath bag if he can pick one up at office. Please call pt to [phone]. A Eri Campo [facility] 2024-06-06 10:23:20 TRANSITIONAL CARE MANAGEMENT ASSESSMENT 06/06/2024 Mayank Hurley [id number] Mayank Hurley is a 79 year old /White male was admitted on 05/28/[address] He was discharged on 06/04/24 with discharge disposition of HR- Routine Discharge. Admitting Physician: Bessy Weber Discharge Diagnosis: FINAL DIAGNOSIS: (the reason, after study, for admitting the patient to the hospital) Severe pLAD/D1 bifurcation stenosis, 70% Ascending Aortic Aneurysm (4.8 cm) HFrEF (EF 30-35% on 05/2024) Moderate Aortic regurgitation Severe AV Stenosis Linked Episodes Type: Episode: Status: Noted: Resolved: Last update: Updated by: TRANSITION OF CARE tcm Active 06/04/2024 06/06/2024 10:21 AM Sean Read RN Comments: TCM [id number] outreach documentation: Discharge Assessment Chart Assessed: 06/06/24 TCM Outreach Completed: 06/06/24 Do you have a few minutes to speak with me about how you are doing at home?: Yes (Pt reports he is doing good.) Discharge Instructions Do you understand your at-home instructions?: Yes (No questions at this time.) Medications Have you filled your prescriptions and do you have them in your home? : Yes Do you know how to take your medications?: Yes (No questions.) Supplies Did you receive applicable home medical supplies/equipment?: Yes ([employer] V[employer]) Do you understand how to use the medical supplies/equipment?: Yes Follow Up Appointment Has a follow up appointment been scheduled?: Yes Are you able to get to your appointment? Who will be taking you?: Yes Home Health Assistance Has the home health nurse contacted you since you've been home?: Yes ([facility]) Survey - Recognition Do you have any other questions or concerns at this time?: No Future Appointments: Future Appointments Provider Department Dept Phone 06/10/2024 3:40 PM Riana Westfall MD [facility] Internal Medicine, PCP [address] [place] [address] 06/14/2024 10:00 AM Bebe Alex FNP [facility] Cardiology, PCP [facility] [phone] 07/02/2024 9:45 AM Kingston Nicole MD [facility] Urology, [facility] [place] [phone] A Read RN [facility] 2024-06-04 18:27:09 Problem: Falls, Risk of Goal: Absence of falls Outcome: Adequate for discharge Problem: Procedure Routine Goal: Knowledge of procedure Outcome: Adequate for discharge Problem: Cardiac Output - Decreased Goal: Cardiac output within specified parameters Outcome: Adequate for discharge Goal: Absence of signs and symptoms of decreased cardiac output Outcome: Adequate for discharge Problem: Discharge Planning Goal: Adequate for discharge Outcome: Adequate for discharge Goal: Effective communication Outcome: Adequate for discharge A Sheikh RN [facility] 2024-06-04 18:23:56 HEMODIALYSIS NURSING NOTE Number Hours: 4.0 hours Bath: 2K 3 Calcium (standard dialysate) Heparin: treatment 2000 units given Access: right Catheter permanent IJ Net UF: 2000 ml Weight: pre 92.7 kg, post 90.7 kg Post BP 136/63 Post Pulse 80 Antibiotics/Medications Given: Epogen 9000 units IV Complications/Events of Treatment: Treatment completed and tolerated, blood completely returned. Left the unit in stable condition. Handoff report completed and attached to Patient Chart and verbal report given to Primary RN Tayla Mode of Transport Back to Unit: bed and accompanied by course instructor [id number] See hemodialysis flowsheet for details of treatment. [facility] 2024-06-04 14:28:21 Problem: Procedure Routine Goal: Knowledge of procedure Outcome: Progressing as expected Hemodialysis: consent verification, pt identified by name & [facility] number by 2 staff members, call light in reach. Education: HD UF time & goal, s/s to report to healthcare team during and post treatment: Nausea/vomiting Muscle cramping SOB Chest pain Headache Low blood pressure Weakness Dizziness Blurred vision Bleeding at access site [facility] 2024-06-03 17:00:35 Problem: Falls, Risk of Goal: Absence of falls Outcome: Progressing as expected Problem: Procedure Routine Goal: Knowledge of procedure Outcome: Progressing as expected Problem: Cardiac Output - Decreased Goal: Cardiac output within specified parameters Outcome: Progressing as expected Goal: Absence of signs and symptoms of decreased cardiac output Outcome: Progressing as expected Problem: Discharge Planning Goal: Adequate for discharge Outcome: Progressing as expected Goal: Effective communication Outcome: Progressing as expected [facility] 2024-06-03 13:56:43 Cardiac risk assessment, CABG, then HoLEP [facility] 2024-06-03 11:03:12 Patient is currently hospitalized and has been since 05/28. He has a HoLEP scheduled for 06/14 and we needed cardiac clearance for this and due to hospitalization he will not be cleared until after discharge and date is unknown at this time. [facility] Meredith Costa MA [facility] 2024-06-01 13:26:31 HEMODIALYSIS NURSING NOTE Number Hours: 3.0 hours Bath: 3K 3 Ca Heparin: None Access: right Catheter permanent IJ Antibiotics/Medications Given: Retacrit 8000 units IV Renvela 800 mg PO Complications/Events of Treatment: Noted skin reaction, red color, and yellow slough around cath insertion site, assumed caused by antiseptic or dressing tape. No sign of infection noted. Insertion site and surrounding cleaned with sterile water, avoid CHG and other antiseptic solution due to excessive skin reaction. Pad dry, applied steroid cream as ordered, then site covered with sterile gauze and hypoallergic tape. Patient tolerated dialysis as prescribed. No event occurred. Pt left unit in stable condition. Net UF: 1500 mL Weight: Pre HD weight - 91.4 kg. Post HD weight - 89.8 kg. Used standing scale. Post Dialysis Treatment: BP 116/55 Pulse 76 Handoff Report: Completed HD treatment sheet and attached it to the patients chart. Mode of Transport Back to Unit: Bed and Accompanied by Transporter See hemodialysis flowsheet for further details of the treatment. A Shaikh RN [facility] 2024-05-31 09:56:57 Problem: Falls, Risk of Goal: Absence of falls Outcome: Progressing as expected Problem: Cardiac Output - Decreased Goal: Cardiac output within specified parameters Outcome: Progressing as expected Goal: Absence of signs and symptoms of decreased cardiac output Outcome: Progressing as expected Problem: Procedure Routine Goal: Knowledge of procedure Outcome: Progressing as expected A Fang RN [facility] 2024-05-30 22:04:20 Patient arrived on floor per transfer orders. Medical treatment plan continues. Vitals and EKG rhythm remain stable at this time A Almazan RN [facility] 2024-05-30 16:10:21 Notified by [facility] team that patient is transfer to [facility] team. Called and spoke to P[employer] agent. Pt. Currently in collaborating supervising physician and report given. A Carpenter RN [facility] 2024-05-30 13:35:07 Problem: Falls, Risk of Goal: Absence of falls Outcome: Progressing as expected Problem: Procedure Routine Goal: Knowledge of procedure Outcome: Progressing as expected Problem: Cardiac Output - Decreased Goal: Cardiac output within specified parameters Outcome: Progressing as expected Goal: Absence of signs and symptoms of decreased cardiac output Outcome: Progressing as expected [facility] 2024-05-30 12:55:12 HEMODIALYSIS NURSING NOTE Number Hours: 3.0 hours Bath: 2K 3 Calcium (standard dialysate) Heparin: Held, Procedure following HD Access: right Catheter permanent subclavian Net UF: 1.0 L Weight: pre 94 kg, post 93 kg (pt's bed scale) Post HD: BP 135/64 Pulse 79 Antibiotics/Medications Given: None Complications/Events of Treatment: Pt HD catheter clean, Patient reacts to tegaderm plastic used for dressing changes, Used paper tape and gauze, Dressing changed on 05/30/2024. Both cath ports able to aspirate & flush briskly. Treatment completed. Blood returned. Cath access packed w/ Heparin, clamped & capped. Pt's vital signs stable and left HD unit without distress. Handoff report: Completed HD treatment sheet and attached it to the patients chart. Mode of Transport Back to Unit: bed and accompanied by transporter See hemodialysis flowsheet for further details of the treatment. [facility] 2024-05-30 08:36:00 Problem: Procedure Routine Goal: Knowledge of procedure Outcome: Progressing as expected Hemodialysis Plan of care reviewed r/t treatment time, UF goal, dry wgt and fluid restrictions. Also reviewed care of dialysis access during tx. Pt updated during tx as needed with teaching done. Also reviewed possible side effects of HD tx, such as s/s of hypotension, cramping (during tx and at rare times after tx), n/v, CP or any other concerns. Patient acknowledge understanding of treatment plan. [facility] 2024-05-30 05:47:55 Problem: Falls, Risk of Goal: Absence of falls Outcome: Progressing as expected [facility] 2024-05-29 20:37:45 AdmissionCare Guideline: Syncope, Inpatient Based on the indications selected for the patient, the bed status of Inpatient was determined to be MET The following indications were selected as present at the time of evaluation of the patient: - Clinical Indications for Admission to Inpatient Care - Admission is indicated for 1 or more of the following: - Cardiac disease or finding that indicates necessity of immediate (ie, not as a scheduled elective procedure) intervention (eg, AICD placement, electrophysiologic study, surgery), treatment (eg, initiation of antiarrhythmic medication) or monitoring (eg, telemetry) beyond observation care AdmissionCare documentation entered by: Bessy Weber [facility], 28th edition, Copyright ? 2023 [facility] All Rights Reserved. [id number] [facility] IM-GERIATRIC MEDICINE STAFF [facility] 2024-05-28 23:39:16 Problem: Falls, Risk of Goal: Absence of falls Outcome: Progressing as expected [facility] 2024-05-28 17:48:44 Report called to 11D, no questions or concerns from receiving RN. POC discussed. [facility] Meche Jon RN [facility] 2024-05-28 16:40:05 Spoke with family, family states daughter witnessed pt get dizzy and fall back, daughter caught pt's head and lowered him to the ground. Pt then became conscious and ended up sitting in a chair and per daughter went unresponsive again, eyes rolled back, right hand clenched, and stopped breathing, daughter gave mouth to mouth and pt starting breathing and became oriented again per EMS. No injuries noted [facility] Janis Guzman RN [facility] 2024-05-28 15:37:47 Dr Ghosh at bedside C-Collar removed at this time [facility] 2024-05-28 14:46:[address] with RN [facility] 2024-05-28 14:38:[address] with RN and ED Team [facility] 2024-05-28 14:30:17 Pt log rolled at this time by MD's [facility] 2024-05-28 14:30:00 Dr Ghosh at bedside, will take over trauma status, Dr Zayas aware and agrees. [facility] 2024-05-28 14:26:00 EKG completed at this time [facility] 2024-05-28 14:19:00 Report received from EMS. Trauma protocol initiated. Trauma team members at bedside, primary and secondary survey in progress. Pt placed on continuous cardiac monitoring, pulse oximetry, and serial vital signs. EMS reports pt was found down by family members for unknown amount of time, possibly had LOC for 30 mins. Ptis on blood thinners. Pt was still sluggish to respond for ems on their arrival but became gcs [address] to hospital via [facility]. 18 G noted to left forearm captain room service. Bella leg bag in place on arrival. C collar in place on arrival. Pt pmh hx prostate CA and is on dialysis. Pt GCS 15 ABC intact on arrival to [facility] Janis Guzman RN [facility] 2024-05-28 14:15:00 Associated Order(s): EKG-12 Lead ROUTINE ONCE Pre-Procedure Diagnose(s): Syncope and collapse Post-Procedure Diagnose(s): Syncope and collapse Addendum I personally examined and participated in decision-making for this patient with the resident, Dr Tomlin. Please see the resident note for further details. Arrived by [facility] from [place]. Syncopal episode. Amnestic to episode. Unknown duration of event. Otherwise no complaints. Family arrives after initial workup. Provides significantly greater detail than what was available from aeromedical crew. Patient stood up from seated position and was walking between two beach-houses. He apparently stopped. Eyes fluttered. No extremity tremors. He then collapsed. Caught by family member to minimize injury risk. Followed by at least 4 episodes of apnea lasting several seconds each. Family initiated chest compressions and rescue breathing while calling EMS. Patient recalls getting up to walk, then next memory is being loaded into ambulance. Amnestic to all events in between. Denies recent illness today or in several days prior to episode. Previously on HD for a year, ending a couple years ago. HD was started during 04/2024 hospitalization at [facility]. Continues dialysis via tunneled cath, on TTS schedule. Last HD was yesterday (Monday, 05/27), full-session. Done one day early due to holiday. Today is Monday. Sees Dr Sharp, Cardiology, [place]. Arrives to ED asymptomatic, at baseline health. Recent encounters: 04/23/24 to 05/02/24. [facility]. 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 Tunneled dialysis cath by IR. Temporary HD. LUTS. CHF exacerbation. NSTEMI type II. 05/06/24. [facility] ED. Hematuria. Irrigated. 05/22/24. Urology; Dr Nicole. Pre-op planning. Worsening LUTS. Planned for HoLEP in June 2024. Lab and imaging studies reviewed Recent Results (from the past 24 hour(s)) Ethanol - For all patients >16 years old Collection Time: 05/28/24 2:32 PM Result Value Ref Range ALCOHOL 10 mg/dL CBC Without DIFF Collection Time: 05/28/24 2:32 PM Result Value Ref Range WBC 6.03 4.20 - 10.70 10*3/?L RBC 3.71 (L) 4.26 - 5.52 10*6/?L HGB 10.3 (L) 12.2 - 16.4 g/dL HCT 31.8 (L) 38.4 - 49.3 % MCH 27.8 26.1 - 32.7 pg MCV 85.7 81.7 - 95.6 fL MCHC 32.4 31.2 - 35.0 g/dL PLT 225 150 - 328 10*3/?L MPV 9.2 (L) 9.8 - 13.0 fL RDW-CV 14.7 12.1 - 15.4 % RDW-SD 45.9 38.5 - 51.6 fL NRBC x10 3 <0.01 10*3/?L NRBC/100 WBC 0.0 0.0 - 10.0 /100 WBCs IPF % CMP Collection Time: 05/28/24 2:32 PM Result Value Ref Range NA 136 135 - 145 mmol/L K 4.4 3.5 - 5.0 mmol/L CL 103 98 - 108 mmol/L CO2 TOTAL 21 (L) 23 - 31 mmol/L AGAP 12 2 - 16 BUN 33 (H) 7 - 23 mg/dL GLUCOSE 94 70 - 110 mg/dL CREATININE 3.39 (H) 0.60 - 1.25 mg/dL TOTAL BILI 0.4 0.1 - 1.1 mg/dL CALCIUM 8.2 (L) 8.6 - 10.6 mg/dL T PROTEIN 6.6 6.3 - 8.2 g/dL ALBUMIN 3.9 3.5 - 5.0 g/dL ALK PHOS 41 34 - 122 U/L ALTv 21 5 - 50 U/L AST(SGOT) 29 13 - 40 U/L eGFR 17.6 mL/min/1.73m2 Lipase Collection Time: 05/28/24 2:32 PM Result Value Ref Range LIPASE 504 (H) 0 - 220 U/L Prothrombin Time / INR Collection Time: 05/28/24 2:32 PM Result Value Ref Range PROTIME PATIENT 11.4 10.1 - 12.6 Seconds INR 1.0 aPTT Collection Time: 05/28/24 2:32 PM Result Value Ref Range APTT Patient 24 (L) 26 - 36 Seconds Type and Screen - The Type and Screen expires at midnight on the 3rd day after it was drawn. A current Type and Screen is required when RBCs are requested. For all other blood products, a Type and Screen performed during the current hospitalizati... Collection Time: 05/28/24 2:32 PM Result Value Ref Range ABO & RH A POSITIVE IAT Negative Creatine Kinase Collection Time: 05/28/24 2:32 PM Result Value Ref Range CK 40 33 - 194 U/L Magnesium Collection Time: 05/28/24 2:32 PM Result Value Ref Range MAGNESIUM 2.2 1.7 - 2.4 mg/dL TROPONIN I Collection Time: 05/28/24 2:32 PM Result Value Ref Range TROPONIN I 0.011 <=0.034 ng/mL N-TERMINAL PRO-BNP Collection Time: 05/28/24 2:32 PM Result Value Ref Range NT-proBNP 14,400 (H) <=125 pg/mL Hospital Encounter on 05/28/24 CT TRAUMA CERVICAL SPINE WO CONTRAST Narrative EXAM: CT TRAUMA HEAD WO CONTRAST, CT TRAUMA CERVICAL SPINE WO CONTRAST HISTORY: Found on the ground. TECHNIQUE: Routine CTs of the head and cervical spine were performed without intravenous contrast, and coronal and sagittal reformatted images were generated. COMPARISON: None. FINDINGS: CT HEAD: The ventricles and cerebral sulci are normal in caliber and configuration. No hydrocephalus, midline shift or pathological extra-axial fluid collection is present. The perimesencephalic cisterns are unremarkable. There is no acute intracranial hemorrhage or significant mass effect. No parenchymal abnormality. The mariano-white matter differentiation is preserved. The mastoid air cells and paranasal air sinuses are clear. The calvarium and central skull base are unremarkable. CT CERVICAL SPINE: The cervical curvature is normal. The vertebral bodies are normal in height and in normal alignment. No facet fracture or subluxation is present. The craniocervical junction is intact. The prevertebral soft tissues are unremarkable. Multilevel degenerative changes in the form of disc space narrowing, endplate sclerosis, osteophytosis and facet arthrosis is noted. Diffuse osteopenia is present. A 1.3 cm right thyroid nodule and does not meet the criteria for follow-up. Impression 1. No acute intracranial abnormality. 2. No acute fracture or traumatic malalignment of the cervical spine. Preliminary Report Dictated by Resident: Ariel Zaidi MD., have reviewed this study and agree with the above report. CT TRAUMA HEAD WO CONTRAST Narrative EXAM: CT TRAUMA HEAD WO CONTRAST, CT TRAUMA CERVICAL SPINE WO CONTRAST HISTORY: Found on the ground. TECHNIQUE: Routine CTs of the head and cervical spine were performed without intravenous contrast, and coronal and sagittal reformatted images were generated. COMPARISON: None. FINDINGS: CT HEAD: The ventricles and cerebral sulci are normal in caliber and configuration. No hydrocephalus, midline shift or pathological extra-axial fluid collection is present. The perimesencephalic cisterns are unremarkable. There is no acute intracranial hemorrhage or significant mass effect. No parenchymal abnormality. The mariano-white matter differentiation is preserved. The mastoid air cells and paranasal air sinuses are clear. The calvarium and central skull base are unremarkable. CT CERVICAL SPINE: The cervical curvature is normal. The vertebral bodies are normal in height and in normal alignment. No facet fracture or subluxation is present. The craniocervical junction is intact. The prevertebral soft tissues are unremarkable. Multilevel degenerative changes in the form of disc space narrowing, endplate sclerosis, osteophytosis and facet arthrosis is noted. Diffuse osteopenia is present. A 1.3 cm right thyroid nodule and does not meet the criteria for follow-up. Impression 1. No acute intracranial abnormality. 2. No acute fracture or traumatic malalignment of the cervical spine. Preliminary Report Dictated by Resident: Ariel Zaidi MD., have reviewed this study and agree with the above report. EKG-12 Lead ROUTINE ONCE Date/Time: 05/28/2024 4:01 PM Performed by: Stephanie Ghosh MD Authorized by: Stephanie Ghosh MD ECG interpreted by ED Physician in the absence of a hydraulics engineer: yes Previous ECG: Previous ECG: Compared to current Comparison ECG info: Compared to EKG of 05/06/2024 no significant changes Interpretation: Interpretation: non-specific Rate: ECG rate: 76 ECG rate assessment: normal Rhythm: Rhythm: sinus rhythm Ectopy: Ectopy: none QRS: QRS axis: Left (-57) QRS conduction: RBBB ST segments: ST segments: Non-specific T waves: T waves: non-specific Comments: Qtc 517 Medical Decision Making Primary impression: syncopal episode Secondary impression: apnea spell Differential Diagnoses, including but not limited to: electrolyte / glucose abnl, anemia, NGHIA, arrhythmia, acute coronary event; hemorrhage, fracture, stroke, tia, seizure Problems Addressed: Apnea spell: acute illness or injury Details: X4 today; rescue breathing by family Chronic congestive heart failure, unspecified heart failure type: chronic illness or injury Hemodialysis patient: chronic illness or injury Primary hypertension: chronic illness or injury Stage 4 chronic kidney disease: chronic illness or injury Syncope and collapse: acute illness or injury Amount and/or Complexity of Data Reviewed Independent Historian: Details: Self, son, family External Data Reviewed: notes. Details: Recent encounters: 1. 04/23/24 to 05/02/24. [facility]. 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 Tunneled dialysis cath by IR. Temporary HD. LUTS. CHF exacerbation. NSTEMI type II. 2. 05/06/24. [facility] ED. Hematuria. Irrigated. 3. 05/22/24. Urology; Dr Niocle. Pre-op planning. Worsening LUTS. Planned for HoLEP in June 2024. Labs: ordered. Decision-making details documented in ED Course. Radiology: ordered. Decision-making details documented in ED Course. ECG/medicine tests: ordered and independent interpretation performed. Decision-making details documented in ED Course. Discussion of management or test interpretation with external provider(s): 1. Case discussed with Internal Medicine including presentation, exam, findings, plan. Will evaluate and continue care in Hospital Risk Decision regarding hospitalization. Risk Details: Unremarkable OBS in ED. Findings and plan discussed with patient and family. Unclear etiology of syncopal episode with apnea spells. [place] Syncope Risk Score, 4. No injury. On hemodialysis. Will benefit from further evaluation and treatment in hospital today. Meets AdmissionCare criteria. Stephanie Ghosh MD, FACEP Emergency Medicine Stephanie Ghosh MD 05/28/24 1610 Stephanie Ghosh MD 05/28/24 1614 ENT SAFETY OFFICER [facility] 2024-05-28 14:15:00 Summary: ED Visit 05/28/2024 [facility] Emergency Department Note Patient Name: Mayank Hurley Date of : 1945 79 year old male Treatment Room: [address] [place] [address] Primary Care Physician: Lilliam Crowley Patient Escorted by: Self [9] Mode of Arrival: Air EMS - [place] [facility] [15] EMS Treatment Prior to ED Arrival: Travel and Exposure Screening: Symptoms Does patient have any of these symptoms?: (not recorded) Exposure Screening Has patient had contact with someone with a communicable disease in the last month?: (not recorded) Diseases exposed to:: (not recorded) Is Patient ?: (not recorded) Exposure Date: (not recorded) Chief Complaint: Chief Complaint Patient presents with Trauma History of Present Illness: 79 yo M w/PMHx of CKD, recent AUR and NGHIA requiring bella placement, HTN, BPH presenting today after an acute fall. Per EMS and pt, pt was found on deck after fall at noon today and per family, pt exhibited left sided facial weakness and slurred speech upon discovery. Per EMS, pt did not display any neurological/stroke like symptoms. Pt unable to acutely recall chain of events leading up to fall but has had one other fall like this a couple of years ago. Patient does not complain of any significant pain or weakness in extremities and sensation is grossly intact. No chest pain, SOB, f/c, n/v. No vision problems. History provided by: EMS personnel and patient Past Medical History/Immunizations: Past Medical History: Diagnosis Date BPH (benign prostatic hyperplasia) Erectile dysfunction GERD (gastroesophageal reflux disease) HTN (hypertension) Allergies: Allergies Allergen Reactions Diltiazem Rash Keflex [Cephalexin] Rash Past Social History: Tobacco Use Never smoked or used smokeless tobacco. Alcohol Use Yes; 8.3 - 16.7 standard drinks of alcohol per week; 10-20 drinks. Comments: daily Drug Use No. Past Surgical History: History reviewed. No pertinent surgical history. Review of Systems: Review of Systems Constitutional: Negative for diaphoresis and fever. HENT: Negative for facial swelling. Cardiovascular: Negative for chest pain. Gastrointestinal: Negative for abdominal distention and abdominal pain. Musculoskeletal: Negative for neck pain and neck stiffness. Neurological: Positive for syncope. Negative for dizziness, facial asymmetry and numbness. Physical Exam: ED Triage Vitals Weight 05/28/24 1419 90.7 kg (200 lb) Actual or estimated -- Height 05/28/24 1419 1.88 m (6' 2") BP 05/28/24 1420 123/62 Pulse 05/28/24 1420 78 Resp 05/28/24 1420 22 Temp 05/28/24 1420 36.7 ?C (98 ?F) Temp src -- SpO2 05/28/24 1420 98 % Measured on -- Physical Exam Vitals and nursing note reviewed. Constitutional: Appearance: Normal appearance. He is normal weight. Comments: Airway intact Bilateral breath sounds 2+ radial and PT pulses HENT: Head: Normocephalic and atraumatic. Cardiovascular: Rate and Rhythm: Normal rate and regular rhythm. Pulses: Radial pulses are 2+ on the right side and 2+ on the left side. Posterior tibial pulses are 2+ on the right side and 2+ on the left side. Abdominal: General: Abdomen is flat. There is no distension. Palpations: Abdomen is soft. Musculoskeletal: General: No deformity or signs of injury. Right hip: No deformity. Left hip: No deformity. Comments: No pelvic instability No pain of upper or lower extremities Neurological: General: No focal deficit present. Mental Status: He is alert and oriented to person, place, and time. Sensory: No sensory deficit. Motor: No weakness. Radiology: XR Chest 2 vw Preliminary Result EXAM: XR CHEST 2 VW 05/28/2024 5:08 PM HISTORY: 79 years-old Male with syncope and received chest compressions COMPARISON: Chest radiograph 04/23/2024 FINDINGS: Right sided IJ catheter with the tip terminating in the distal SVC. Lungs: The lungs are well-expanded and clear. There is some mild left basilar atelectasis. No focal opacities. No pleural abnormalities are detected. Heart/Mediastinum: The cardiomediastinal silhouette remains enlarged in size. Aortic knob calcification is noted. Musculoskeletal: No acute osseous abnormality. IMPRESSION No acute cardiopulmonary abnormality. Preliminary Report Dictated by Resident: Melissa Stinson CT TRAUMA HEAD WO CONTRAST Final Result EXAM: CT TRAUMA HEAD WO CONTRAST, CT TRAUMA CERVICAL SPINE WO CONTRAST HISTORY: Found on the ground. TECHNIQUE: Routine CTs of the head and cervical spine were performed without intravenous contrast, and coronal and sagittal reformatted images were generated. COMPARISON: None. FINDINGS: CT HEAD: The ventricles and cerebral sulci are normal in caliber and configuration. No hydrocephalus, midline shift or pathological extra-axial fluid collection is present. The perimesencephalic cisterns are unremarkable. There is no acute intracranial hemorrhage or significant mass effect. No parenchymal abnormality. The mariano-white matter differentiation is preserved. The mastoid air cells and paranasal air sinuses are clear. The calvarium and central skull base are unremarkable. CT CERVICAL SPINE: The cervical curvature is normal. The vertebral bodies are normal in height and in normal alignment. No facet fracture or subluxation is present. The craniocervical junction is intact. The prevertebral soft tissues are unremarkable. Multilevel degenerative changes in the form of disc space narrowing, endplate sclerosis, osteophytosis and facet arthrosis is noted. Diffuse osteopenia is present. A 1.3 cm right thyroid nodule and does not meet the criteria for follow-up. IMPRESSION 1. No acute intracranial abnormality. 2. No acute fracture or traumatic malalignment of the cervical spine. Preliminary Report Dictated by Resident: Melissa Stinson I, Ariel Rodríguez MD., have reviewed this study and agree with the above report. CT TRAUMA CERVICAL SPINE WO CONTRAST Final Result EXAM: CT TRAUMA HEAD WO CONTRAST, CT TRAUMA CERVICAL SPINE WO CONTRAST HISTORY: Found on the ground. TECHNIQUE: Routine CTs of the head and cervical spine were performed without intravenous contrast, and coronal and sagittal reformatted images were generated. COMPARISON: None. FINDINGS: CT HEAD: The ventricles and cerebral sulci are normal in caliber and configuration. No hydrocephalus, midline shift or pathological extra-axial fluid collection is present. The perimesencephalic cisterns are unremarkable. There is no acute intracranial hemorrhage or significant mass effect. No parenchymal abnormality. The mariano-white matter differentiation is preserved. The mastoid air cells and paranasal air sinuses are clear. The calvarium and central skull base are unremarkable. CT CERVICAL SPINE: The cervical curvature is normal. The vertebral bodies are normal in height and in normal alignment. No facet fracture or subluxation is present. The craniocervical junction is intact. The prevertebral soft tissues are unremarkable. Multilevel degenerative changes in the form of disc space narrowing, endplate sclerosis, osteophytosis and facet arthrosis is noted. Diffuse osteopenia is present. A 1.3 cm right thyroid nodule and does not meet the criteria for follow-up. IMPRESSION 1. No acute intracranial abnormality. 2. No acute fracture or traumatic malalignment of the cervical spine. Preliminary Report Dictated by Resident: Melissa Stinson I, Ariel Rodríguez MD., have reviewed this study and agree with the above report. Lab Results: Lab Results CBC WITHOUT DIFF - Abnormal Result Value Ref Range WBC 6.03 4.20 - 10.70 10*3/?L RBC 3.71 (*) 4.26 - 5.52 10*6/?L HGB 10.3 (*) 12.2 - 16.4 g/dL HCT 31.8 (*) 38.4 - 49.3 % MCH 27.8 26.1 - 32.7 pg MCV 85.7 81.7 - 95.6 fL MCHC 32.4 31.2 - 35.0 g/dL PLT 225 150 - 328 10*3/?L MPV 9.2 (*) 9.8 - 13.0 fL RDW-CV 14.7 12.1 - 15.4 % RDW-SD 45.9 38.5 - 51.6 fL NRBC x10 3 <0.01 10*3/?L NRBC/100 WBC 0.0 0.0 - 10.0 /100 WBCs IPF % COMP. METABOLIC PANEL (99329) - Abnormal NA 136 135 - 145 mmol/L K 4.4 3.5 - 5.0 mmol/L CL 103 98 - 108 mmol/L CO2 TOTAL 21 (*) 23 - 31 mmol/L AGAP 12 2 - 16 BUN 33 (*) 7 - 23 mg/dL GLUCOSE 94 70 - 110 mg/dL CREATININE 3.39 (*) 0.60 - 1.25 mg/dL TOTAL BILI 0.4 0.1 - 1.1 mg/dL CALCIUM 8.2 (*) 8.6 - 10.6 mg/dL T PROTEIN 6.6 6.3 - 8.2 g/dL ALBUMIN 3.9 3.5 - 5.0 g/dL ALK PHOS 41 34 - 122 U/L ALTv 21 5 - 50 U/L AST(SGOT) 29 13 - 40 U/L eGFR 17.6 mL/min/1.73m2 LIPASE - Abnormal LIPASE 504 (*) 0 - 220 U/L ACTIVATED PARTIAL THRMPLAS RADHA - Abnormal APTT Patient 24 (*) 26 - 36 Seconds N-TERMINAL PRO-BNP - Abnormal NT-proBNP 14,400 (*) <=125 pg/mL THYROID STIMULATING HORMONE - Abnormal TSH 8.58 (*) 0.45 - 4.70 mIU/L PROTHROMBIN TIME / INR - Normal PROTIME PATIENT 11.4 10.1 - 12.6 Seconds INR 1.0 CREATINE KINASE - Normal CK 40 33 - 194 U/L MAGNESIUM - Normal MAGNESIUM 2.2 1.7 - 2.4 mg/dL TROPONIN I - Normal TROPONIN I 0.011 <=0.034 ng/mL FERRITIN SERUM - Normal FERRITIN 262.0 18.0 - 464.0 ng/mL ETHANOL ALCOHOL 10 mg/dL TYPE AND SCREEN ABO & RH A POSITIVE IAT Negative BLOOD CULTURE SCREEN BLOOD CULTURE SCREEN EKG: If EKG completed, see Procedure Note. Orders and Treatments: Orders Placed This Encounter Procedures CT TRAUMA HEAD WO CONTRAST CT TRAUMA CERVICAL SPINE WO CONTRAST XR Chest 2 vw Ethanol - For all patients >16 years old CBC Without DIFF CMP Lipase Prothrombin Time / INR aPTT Urinalysis Type and Screen - The Type and Screen expires at midnight on the 3rd day after it was drawn. A current Type and Screen is required when RBCs are requested. For all other blood products, a Type and Screen performed during the current hospitalizati... Creatine Kinase Magnesium TROPONIN I ABORH Confirmation (Lab Only) N-TERMINAL PRO-BNP Urine Drug (Immunoassay) - Comprehensive Drug Screen Thyroid Stimulating Hormone Free T4 Iron Panel Ferritin Serum Magnesium Cbc with Diff Basic Metabolic Panel (NA, K, CL, CO2, GLUCOSE, BUN, CREATININE, CA) BLOOD CULTURE SCREEN BLOOD CULTURE SCREEN Urine Culture Magnesium Cbc with Diff Basic Metabolic Panel (NA, K, CL, CO2, GLUCOSE, BUN, CREATININE, CA) Consult Pharmacy - Medication Management Reason for Consult: Admission Medication Reconciliation Consult Nephrology: ESRD Patient Needing Dialysis Consult Adult Physical Therapy Consult Adult Occupational Therapy Consult PS Pastoral Care O2 Per Protocol Orders Placed This Encounter Medications aspirin chewable tablet 81 mg tamsulosin (FLOMAX) capsule 0.4 mg DISCONTD: enoxaparin (LOVENOX) injection 40 mg acetaminophen (TYLENOL) tablet 650 mg HYDROcodone-acetaminophen (NORCO 5) tablet 1 tablet ondansetron (ZOFRAN (PF)) injection 4 mg heparin (porcine) injection 5,000 Units levothyroxine (SYNTHROID) tablet 25 mcg polyethylene glycol 3350 powder 17 g sennosides (SENOKOT) tablet 8.6 mg First Provider Eval: ED Events Date/Time Event User Comments 05/28/24 1415 Medical Screening Begins QUIANA STEPHEN, STEPHANIE HERRMANN -- 05/28/24 1431 First Provider Evaluation DORIAN TOMLIN -- AdmissionCare Guideline: Syncope, Observation Based on the indications selected for the patient, the bed status of Observation was determined to be MET The following indications were selected as present at the time of evaluation of the patient: - Observation Care Admission Criteria - Observation care is indicated for 1 or more of the following: - Patient at risk for cardiogenic etiology of syncope (eg, arrhythmia, valvular disease) that warrants further testing (eg, echocardiogram) or monitoring (eg, cardiac telemetry), as indicated by 1 or more of the following: - New Zealander Syncope Risk Score of 1 or greater (medium or high risk for 30-day severe adverse event) AdmissionCare documentation entered by: Stephanie Ghosh [facility], 28th edition, Copyright ? 2023 [facility] [employer] All Rights Reserved. [id number]:00 ED COURSE ED Course as of 05/29/24 0915 MonMay 28, 2024 [address] Weber, they will accept to their care [LL] 1600 On reassessment the family is now present in the room. Patient's family reports a very different story from the one that was received from EMS. They state that patient sat up from a chair was walking [place] and had a syncopal episode. They said his eyes fluttered on his way down. He was caught in helped to the ground. He did not fall or hit his head. They state that he had for a apneic episodes and had to give him rescue breathing and chest compressions prior to EMS arrival. He was amnestic until he was being loaded onto the ambulance. [LL] 1501 CBC Without DIFF(!) Anemic (consistent with prior history), no leukocytosis, no platelet abnormality [LL] 1501 LIPASE(!): 504 Pancreatitis less likely [LL] 1500 CMP(!) No electrolyte derangement, BUN/Cr consistent with kidney disease, no hepatic disturbance [LL] ED Course User Index [LL] Dorian Tomlin DO Diagnosis/Impression as of 05/29/24 0915 Syncope and collapse Stage 4 chronic kidney disease Apnea spell Procedures: Procedures MDM: Medical Decision Making Differential diagnosis includes but is not limited to: Dehydration, subdural/epidural bleeds, syncope, BPPV Orders: CT Head/C-spine, CBC, CMP, troponin, EKG, CK On workup there were no clear etiology for today's symptoms.Lab workup was grossly unremarkable, aside from chronic conditions no new abnormal findings. CT was negative. The story we received from them was very different than the one we received from EMS. There was no trauma on his fall, he was helped to the ground by family. He had a syncopal episode followed by for apneic episodes that required rescue breathing chest compressions prior to EMS arrival. Discussed options with family, offered admission versus discharge. They would prefer patient was admitted for observation. Patient agrees with plan of care. We will admit to internal medicine for further workup. Problems Addressed: Apnea spell: acute illness or injury Stage 4 chronic kidney disease: acute illness or injury Syncope and collapse: acute illness or injury Amount and/or Complexity of Data Reviewed External Data Reviewed: labs, radiology, ECG and notes. Labs: ordered. Decision-making details documented in ED Course. Radiology: ordered. ECG/medicine tests: ordered and independent interpretation performed. Discussion of management or test interpretation with external provider(s): Dr. Tia London team Flowsheet Documentation: Scoring Tools: No data recorded Disposition/Condition: ED Disposition ED Disposition Admit - Observation Condition -- Comment Treatment Team: BERNARD [[id number]] Electronically signed by: Dorian Tomlin DO 05/29/24 0916 ENT SAFETY OFFICER Associated attestation - Stephanie Ghosh MD - 05/29/2024 12:24 PM PATIENT SAFETY OFFICER [facility] 2024-05-28 14:15:00 AdmissionCare Guideline: Syncope, Observation Based on the indications selected for the patient, the bed status of Observation was determined to be MET The following indications were selected as present at the time of evaluation of the patient: - Observation Care Admission Criteria - Observation care is indicated for 1 or more of the following: - Patient at risk for cardiogenic etiology of syncope (eg, arrhythmia, valvular disease) that warrants further testing (eg, echocardiogram) or monitoring (eg, cardiac telemetry), as indicated by 1 or more of the following: - [place] Syncope Risk Score of 1 or greater (medium or high risk for 30-day severe adverse event) AdmissionCare documentation entered by: Stephanie Ghosh [facility], 28th edition, Copyright ? 2023 [facility] All Rights Reserved. [id number]:[id number]:00 [facility] 2024-05-23 09:57:28 UROLOGY POST-PROCEDURE CALL Procedure: Cystourethroscopy Physician: Kingston Nicole MD Are you experiencing any nausea/vomiting? no Are you having any difficulty voiding? no Are you experiencing an increase in your temperature? no Are you having any pain? What is your pain level? no 0 Did you receive post-op education? yes Did you understand the instructions given to you? yes Were you given the number to call for questions or concerns regarding your procedure? yes Are you satisfied with the care you received? yes Post procedure instructions reviewed: Cystoscopy Teachback completed by patient: Knowledge of phone number to call: yes Knowledge of post-procedure instructions: yes [facility] lAlie Perdomo RN [facility] 2024-05-22 16:33:44 . [facility] 2024-05-22 16:28:32 The following patient is scheduled for HoLEP with Kingston Nicole at [facility] Surgery Department. The procedure is currently scheduled on 06/14/24 and requires Cardiac clearance prior to the procedure. The following has been requested from Dr. Sharp: Dr Sharp. FAX # [phone] Note indicating Cardiac clearance risk level 2. Most recent office note date 3. Recent tests (if not accessible in Epic): Labs, EKG, Echo, etc 4. Information on implantable devices (pacemaker, AICD, last interrogation, device type with response to magnet and most recent EP report) 5. Perioperative recommendations / 6. Optimization for surgery, any needs for cardiac testing prior to having surgery 7. Patient has reported taking the following anticoagulation:ASA Cardio to give instructions for holding prior to procedure. Thank you, Meredith Costa MA ENT SAFETY OFFICER Meredith Costa MA [facility] 2024-05-20 07:38:58 Colonized urine with indwelling bella Start oral abx today RTC for cysto 05/22/2024 Pre procedure Gent ENT SAFETY OFFICER [facility] 2024-05-08 14:00:52 Pt has been scheduled. ENT SAFETY OFFICER Grover Vera [facility] 2024-05-08 13:05:32 Yes, OB next week ENT SAFETY OFFICER URO-UROLOGY STAFF [facility] 2024-05-07 17:11:02 Mayank Hurley is a 79 year old male Pt's son is calling to get him scheduled to see a provider and get his prostate removed, states pt's prostate is so enlarged it is cutting off flow to his kidneys Please review chart and see if pt can be scheduled to sooner appt that current one scheduled for July Pt is willing to go to [facility] or [facility] and see any of the providers Appt is added to waitlist high priority as well [place] (preferred but busiest) [phone] Rubens Hurley (Spouse) Naz Hurley [phone] A Booth [facility] 2024-05-07 08:24:24 TRANSITIONAL CARE MANAGEMENT ASSESSMENT 05/07/2024 Mayank Hurley [id number] Mayank Hurley is a 79 year old /White male was admitted on 04/23/24 to [facility] A[facility]. He was discharged on 05/02/24 with discharge disposition of HR- Routine Discharge. Admitting Physician: Discharge Diagnosis: Severe aortic regurgitation AE CHF, diastolic Aneurysm of ascending aorta CKD IV Dyspnea No linked episodes TCM [id number] outreach documentation: Discharge Assessment Chart Assessed: 05/07/24 TCM Outreach Completed: 05/07/24 Do you have a few minutes to speak with me about how you are doing at home?: Yes Discharge Instructions Do you understand your at-home instructions?: Yes (No questions at this time.) Medications Have you filled your prescriptions and do you have them in your home? : Yes Do you know how to take your medications?: Yes (No questions.) Supplies Did you receive applicable home medical supplies/equipment?: N/A Follow Up Appointment Has a follow up appointment been scheduled?: No May I assist with scheduling this appointment?: Patient has outside PCP Are you able to get to your appointment? Who will be taking you?: Yes Home Health Assistance Has the home health nurse contacted you since you've been home?: N/A Survey - Recognition Do you have any other questions or concerns at this time?: No Future Appointments: A Read RN [facility] 2024-05-06 17:59:14 Patient received discharge instructions and voiced understanding, documentation acknowledged and signed. Pt education provided on prescription use and signs of worsening symptoms. PIV DC'd without complications, site appears healthy, hemostatic, pressure dressing applied to site, catheter intact. Pt alert and oriented x4, RR equal and unlabored, no sign of acute distress on discharge, patient rolled to the lobby. Pt. Left ED with all belongings. [facility] Irene Almazan RN [facility] 2024-05-06 17:15:06 Patient and spouse provided with food and water at their request. Patient again expressing concern for being discharged. Kulwant STEPHEN notified in person [facility] 2024-05-06 17:03:38 Kulwant STEPHEN notified of patient and families concern for discharge and desire to speak to a hydraulics engineer DEL [facility] 2024-05-06 16:05:35 Kulwant STEPHEN at bedside speaking with patient and family updating on POC [facility] 2024-05-06 15:12:05 TRANSITIONAL CARE MANAGEMENT ASSESSMENT 05/06/2024 Mayank Hurley [id number] Mayank Hurley is a 79 year old /White male was admitted on 04/23/24 to [facility]. He was discharged on 05/02/24 with discharge disposition of HR- Routine Discharge. Admitting Physician: Eddi Aguirre Discharge Diagnosis: Severe aortic regurgitation AE CHF, diastolic Aneurysm of ascending aorta CKD IV Dyspnea No linked episodes TCM [id number]-face outreach documentation: Discharge Assessment Chart Assessed: 05/06/24 Chart Reviewed - Post Discharge Call Deferred due to Change in Discharge Status.: (Pt is currently admitted to ED.) TCM Outreach Completed: 05/06/24 Future Appointments: [facility] 2024-05-06 12:38:20 Mayank Hurley is a 79 year old male that arrived to [facility] ER via from home with complaints of hematuria since Monday. Patient said [facility] does not have the specialties he needs- urology/cardiology. Patient has a bella in place filled with bloody urine. is at the bedside Patient is A/O X 4, ambulatory, vital signs are WNL. ENT SAFETY OFFICER [facility] 2024-05-06 12:08:37 Mayank Hurley is a 79 year old male here with complaint of blood in urine in bella bag that began Monday. Patient states he needs to see a Urologist and a Business Executive but [place] [facility] Patient denies chest pain at this time but relays he needs a heart catheterization. Patient had HD on Monday, HD cath noted to left chest wall. A&Ox4, respirations even and unlabored. EKG at triage. Patient to green chair due to ER saturation. A Camacho RN [facility] 2024-05-06 12:00:00 [facility] Emergency Department Note Patient Name: Mayank Hurley Date of : 1945 79 year old male Treatment Room: [address] [place] [address] Primary Care Physician: Lilliam Crowley Patient Escorted by: Family [5] Mode of Arrival: Personal means [1] EMS Treatment Prior to ED Arrival: [employer] treatment: None Travel and Exposure Screening: Symptoms Does patient have any of these symptoms?: (not recorded) Exposure Screening Has patient had contact with someone with a communicable disease in the last month?: (not recorded) Diseases exposed to:: (not recorded) Is Patient ?: (not recorded) Exposure Date: (not recorded) Chief Complaint: Chief Complaint Patient presents with Hematuria History of Present Illness: 79 year old male with history of HTN, severe aortic stenosis, CHF, BPH, 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 First noticed pink tinged urine three days ago with gross blood two days ago. Has had consitent output of 2L this entire time. Recently admitted at [facility] 04/25-05/02 for CHF exacerbatin and NGHIA on CKD, hospital course notable for urinary retention s/p bella placement complicated by hematuria that resolved after discontinuing heparin. Supposed to follow up outpatient with Urology, but has not made the appointment. Reports pain at bella site. Past Medical History/Immunizations: Past Medical History: Diagnosis Date BPH (benign prostatic hyperplasia) Erectile dysfunction GERD (gastroesophageal reflux disease) HTN (hypertension) Allergies: Allergies Allergen Reactions Diltiazem Rash Keflex [Cephalexin] Rash Past Social History: Tobacco Use Never smoked or used smokeless tobacco. Alcohol Use Yes; 8.3 - 16.7 standard drinks of alcohol per week; 10-20 drinks. Comments: daily Drug Use No. Past Surgical History: No past surgical history on file. Review of Systems: Review of Systems Constitutional: Negative for chills and fever. HENT: Negative for congestion, rhinorrhea and sore throat. Respiratory: Negative for cough and shortness of breath. Cardiovascular: Negative for chest pain. Gastrointestinal: Negative for abdominal pain, diarrhea, nausea and vomiting. Genitourinary: Positive for hematuria. Negative for decreased urine volume. Physical Exam: ED Triage Vitals Weight 05/06/24 1211 96.2 kg (212 lb) Actual or estimated -- Height 05/06/24 1211 1.88 m (6' 2") BP 05/06/24 1213 121/57 Pulse 05/06/24 1213 88 Resp 05/06/24 1213 21 Temp 05/06/24 1213 36.8 ?C (98.3 ?F) Temp src -- SpO2 05/06/24 1213 98 % Measured on -- Physical Exam Vitals and nursing note reviewed. Constitutional: General: He is not in acute distress. Appearance: Normal appearance. He is not ill-appearing, toxic-appearing or diaphoretic. HENT: Head: Normocephalic and atraumatic. Nose: Nose normal. No congestion or rhinorrhea. Mouth/Throat: Mouth: Mucous membranes are moist. Eyes: General: Right eye: No discharge. Left eye: No discharge. Conjunctiva/sclera: Conjunctivae normal. Cardiovascular: Rate and Rhythm: Normal rate and regular rhythm. Heart sounds: Murmur heard. Pulmonary: Effort: Pulmonary effort is normal. No respiratory distress. Breath sounds: Normal breath sounds. Chest: Comments: Left sided port with dried blood on dressing, Tegaderm not intact over dressing site. Abdominal: General: There is no distension. Palpations: Abdomen is soft. Tenderness: There is no abdominal tenderness. There is no guarding. Genitourinary: Comments: Dark red blood in bella bag. Musculoskeletal: General: No deformity or signs of injury. Skin: General: Skin is warm and dry. Neurological: General: No focal deficit present. Mental Status: He is alert and oriented to person, place, and time. Psychiatric: Mood and Affect: Mood normal. Behavior: Behavior normal. Radiology: CT ABDOMEN PELVIS WO CONTRAST Final Result CT ABDOMEN PELVIS WO CONTRAST 05/06/2024 2:22 PM HISTORY: Hematuria, gross/macroscopic COMPARISON: CT abdomen pelvis 04/27/2034 TECHNIQUE: Axial images of the abdomen and pelvis were acquired without administration of intravenous contrast. Coronal and sagittal reconstructions were also created. FINDINGS: Lack of intravenous contrast limits evaluation of solid organ lesions. LOWER CHEST: Trace bilateral pleural effusion and bronchial wall thickening, decreased from 04/27/2024. Marked global cardiomegaly. Marked coronary artery and moderate aortic valve calcification. Tip of a catheter is seen within upper right atrium HEPATOBILIARY: The liver is normal in size. No masses considering limitation of lack of intravenous contrast. The gallbladder is No biliary ductal dilatation. SPLEEN: Normal in size. PANCREAS: The parenchyma is within normal limits.No ductal dilatation. ADRENAL GLANDS: 1.7 cm left adrenal nodule with indeterminate density. KIDNEYS: The kidneys are atrophic, left worse than right. Lobulated right kidney with focal scarring in the multifocal scarring. The distal left ureter is a stable mildly dilated. A couple of right renal cysts measuring up to 1.5 cm. A 1.5 cm left renal lesion with layering intermediate density could represent milk of calcium or internal hemorrhage. GI TRACT: Colonic diverticulosis, extensive at sigmoid colon. No luminal dilatation or bowel wall thickening. The appendix is normal. PERITONEUM AND RETROPERITONEUM: No free air. Trace volume ascites in the pelvic cavity LYMPH NODES: There are scattered subcentimeter retroperitoneal and mesenteric lymph nodes, nonspecific. PELVIS/BLADDER: Marked prostatomegaly measuring 6.4 x 6 x 5.5 cm. The urinary bladder is decompressed by a Bella. Intravesical gas, could be iatrogenic. Circumferential bladder wall thickening. VESSELS: Within normal limits. Moderate calcified plaque abdominal aorta and ostium of celiac trunk, SMA and bilateral renal arteries, right greater than left. BONES AND SOFT TISSUES: Degenerative disc and facet arthropathy worse at the level of L5-S1 with osteophytosis and intervertebral disc space height loss associated with moderate bilateral L5-chest neural foraminal narrowing. Small fat-containing bilateral inguinal hernias, containing trace volume of fluid in the right. IMPRESSION Interval resolution of left hydronephrosis and mild residual left distal ureteral dilatation. Marked prostatomegaly and evidence of outlet obstruction, status post decompression of bladder by Bella. Atrophic left kidney. Possible complex cyst with internal hemorrhage versus layering milk of calcium. Interval decreased now trace bilateral pleural effusions. Other chronic findings. Lab Results: Lab Results BASIC METABOLIC PANEL (NA, K, CL, CO2, GLUCOSE, BUN, CREATININE, CA) - Abnormal Result Value Ref Range NA 135 135 - 145 mmol/L K 4.8 3.5 - 5.0 mmol/L CL 102 98 - 108 mmol/L CO2 TOTAL 24 23 - 31 mmol/L AGAP 9 2 - 16 BUN 34 (*) 7 - 23 mg/dL GLUCOSE 89 70 - 110 mg/dL CREATININE 2.89 (*) 0.60 - 1.25 mg/dL CALCIUM 8.7 8.6 - 10.6 mg/dL eGFR 21.3 mL/min/1.73m2 CBC WITH DIFF - Abnormal WBC 6.99 4.20 - 10.70 10*3/?L RBC 4.19 (*) 4.26 - 5.52 10*6/?L HGB 11.9 (*) 12.2 - 16.4 g/dL HCT 35.7 (*) 38.4 - 49.3 % MCV 85.2 81.7 - 95.6 fL MCH 28.4 26.1 - 32.7 pg MCHC 33.3 31.2 - 35.0 g/dL RDW-SD 44.2 38.5 - 51.6 fL RDW-CV 14.2 12.1 - 15.4 % PLT 192 150 - 328 10*3/?L MPV 10.2 9.8 - 13.0 fL NRBC/100 WBC 0.0 0.0 - 10.0 /100 WBCs NRBC x10 3 <0.01 10*3/?L GRAN MAT (NEUT) % 60.6 % IMM GRAN % 0.30 % LYMPH % 15.2 % MONO % 10.0 % EOS % 13.2 % BASO % 0.7 % GRAN MAT x10 3 (ANC) 4.24 1.99 - 6.95 10*3/uL IMM GRAN x10 3 <0.03 0.00 - 0.06 10*3/uL LYMPH x10 3 1.06 (*) 1.09 - 3.23 10*3/uL MONO x10 3 0.70 0.36 - 1.02 10*3/uL EOS x10 3 0.92 (*) 0.06 - 0.53 10*3/uL BASO x10 3 0.05 0.01 - 0.09 10*3/uL URINALYSIS - Abnormal APPEARANCE Extra Turbid (*) Clear COLOR Red (*) Colorless, Other PH 6.5 4.0 - 8.0 SP GRAVITY 1.009 <=1.030 GLU U QUAL Normal Normal, 30 mg/dL, 50 mg/dL BLOOD 3+ (*) Negative KETONES Negative Negative, Trace PROTEIN 200 mg/dL (*) Negative, 10 mg/dL, 20 mg/dL UROBILIN Normal Normal BILIRUBIN Negative Negative NITRITE Negative Negative LEUK VI 500/uL (*) Negative, 25/uL RBC/HPF >182 (*) 0 - 3 HPF WBC/HPF >182 (*) 0 - 5 HPF BACTERIA Many (*) Negative N-TERMINAL PRO-BNP - Abnormal NT-proBNP 18,200 (*) <=125 pg/mL PROTHROMBIN TIME / INR - Normal PROTIME PATIENT 11.8 10.1 - 12.6 Seconds INR 1.1 TROPONIN I - Normal TROPONIN I 0.016 <=0.034 ng/mL EKG: If EKG completed, see Procedure Note. Orders and Treatments: Orders Placed This Encounter Procedures CT ABDOMEN PELVIS WO CONTRAST BASIC METABOLIC PANEL (NA, K, CL, CO2, GLUCOSE, BUN, CREATININE, CA) CBC WITH DIFF URINALYSIS Prothrombin Time / INR TROPONIN I N-Terminal Pro-Bnp Consult Cardiology Orders Placed This Encounter Medications cefTRIAXone (ROCEPHIN) 1,000 mg in water for injection, sterile 10 mL IV Push sulfamethoxazole-trimethopri m 800-160 mg per tablet First Provider Eval: ED Events Date/Time Event User Comments 05/06/244 Medical Screening Begins VIOLETTE MENDOZA -- 05/06/24 1224 First Provider Evaluation VIOLETTE MENDOZA -- ED COURSE ED Course as of 05/06/24 1650 Mon May 06, 2024 1637 TROPONIN I: 0.016 [CM] 1413 HGB(!): 11.9 Stable from prior. [CM] 1413 CREATININE(!): 2.89 Near baseline. 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 Bella placed during recent admission for urinary retention. Good urinary output since discharge. Vitals within normal limits. Dark red blood in bella catheter collection bag, no abdominal tenderness or distention. Differential diagnosis includes but not limited to hematuria from bladder decompression, coagulopathy, traumatic bella, blood clot in bella. Will get CBC, BMP, PT/INR, UA, and non-con CT abd/pelvis to further evaluate. Cardiology consulted given recent admission for severe aortic stenosis. Patient signed out to abi Triana pending final cardiology recs. See ED course for additional information. Amount and/or Complexity of Data Reviewed Independent Historian: spouse Details: Spouse helped provide history. Labs: ordered. Decision-making details documented in ED Course. Radiology: ordered. Decision-making details documented in ED Course. Risk Prescription drug management. Flowsheet Documentation: Scoring Tools: No data recorded Disposition/Condition: ED Disposition ED Disposition Discharge Condition Stable Comment -- Discharge Medications: Patient's Medications START taking these medications SULFAMETHOXAZOLE-TRIMETHOPRI M 800-160 MG PER TABLET Take 1 tablet by mouth every 12 (twelve) hours. CONTINUE taking these medications which have NOT CHANGED ASPIRIN 81 MG CHEWABLE TABLET Take 1 tablet by mouth in the morning. CARVEDILOL 3.125 MG TABLET Take 1 tablet by mouth in the morning and 1 tablet in the evening. Take with meals. Do all this for 30 days. FUROSEMIDE 80 MG TABLET Take 1 tablet by mouth every morning and evening for 30 days. LEVOTHYROXINE 25 MCG TABLET Take 1 tablet by mouth every morning for 30 days. PANTOPRAZOLE 40 MG EC TABLET Take 1 tablet by mouth in the morning for 30 days. SACUBITRIL-VALSARTAN 24-26 MG TABLET Take 1 tablet by mouth in the morning and 1 tablet in the evening. Do all this for 30 days. TAMSULOSIN 0.4 MG 24 HR CAPSULE Take 1 capsule by mouth in the morning for 30 days. VITAMIN B-12 (VITAMIN B-12) 250 MCG TABLET Take 1 Tab by mouth daily. START taking Modified Medications as Prescribed No medications on file STOP taking these medications No medications on file Follow-up: Electronically signed by: Violette Mendoza MD 05/06/24 1650 ENT SAFETY OFFICER Associated attestation - Casey De La Cruz DO - 05/06/2024 5:38 PM PATIENT SAFETY OFFICER I personally examined the patient and agree with Dr. Mendoza's resident note as written . I actively participated in the decision-making process. Please see the resident's note for additional details. [facility] 2024-05-06 12:00:00 Discharge instructions from [facility] follow up with Urology in 3-5 days and Cardiology follow up in 1-[address] referrals for Urology and cardiology. Patient with hemorrhagic cystitis. Recent Results (from the past 24 hour(s)) BASIC METABOLIC PANEL (NA, K, CL, CO2, GLUCOSE, BUN, CREATININE, CA) Collection Time: 05/06/24 1:17 PM Result Value Ref Range NA 135 135 - 145 mmol/L K 4.8 3.5 - 5.0 mmol/L CL 102 98 - 108 mmol/L CO2 TOTAL 24 23 - 31 mmol/L AGAP 9 2 - 16 BUN 34 (H) 7 - 23 mg/dL GLUCOSE 89 70 - 110 mg/dL CREATININE 2.89 (H) 0.60 - 1.25 mg/dL CALCIUM 8.7 8.6 - 10.6 mg/dL eGFR 21.3 mL/min/1.73m2 CBC WITH DIFF Collection Time: 05/06/24 1:17 PM Result Value Ref Range WBC 6.99 4.20 - 10.70 10*3/?L RBC 4.19 (L) 4.26 - 5.52 10*6/?L HGB 11.9 (L) 12.2 - 16.4 g/dL HCT 35.7 (L) 38.4 - 49.3 % MCV 85.2 81.7 - 95.6 fL MCH 28.4 26.1 - 32.7 pg MCHC 33.3 31.2 - 35.0 g/dL RDW-SD 44.2 38.5 - 51.6 fL RDW-CV 14.2 12.1 - 15.4 % PLT 192 150 - 328 10*3/?L MPV 10.2 9.8 - 13.0 fL NRBC/100 WBC 0.0 0.0 - 10.0 /100 WBCs NRBC x10 3 <0.01 10*3/?L GRAN MAT (NEUT) % 60.6 % IMM GRAN % 0.30 % LYMPH % 15.2 % MONO % 10.0 % EOS % 13.2 % BASO % 0.7 % GRAN MAT x10 3 (ANC) 4.24 1.99 - 6.95 10*3/uL IMM GRAN x10 3 <0.03 0.00 - 0.06 10*3/uL LYMPH x10 3 1.06 (L) 1.09 - 3.23 10*3/uL MONO x10 3 0.70 0.36 - 1.02 10*3/uL EOS x10 3 0.92 (H) 0.06 - 0.53 10*3/uL BASO x10 3 0.05 0.01 - 0.09 10*3/uL URINALYSIS Collection Time: 05/06/24 1:17 PM Result Value Ref Range APPEARANCE Extra Turbid (A) Clear COLOR Red (A) Colorless, Other PH 6.5 4.0 - 8.0 SP GRAVITY 1.009 <=1.030 GLU U QUAL Normal Normal, 30 mg/dL, 50 mg/dL BLOOD 3+ (A) Negative KETONES Negative Negative, Trace PROTEIN 200 mg/dL (A) Negative, 10 mg/dL, 20 mg/dL UROBILIN Normal Normal BILIRUBIN Negative Negative NITRITE Negative Negative LEUK VI 500/uL (A) Negative, 25/uL RBC/HPF >182 (H) 0 - 3 HPF WBC/HPF >182 (H) 0 - 5 HPF BACTERIA Many (A) Negative Prothrombin Time / INR Collection Time: 05/06/24 1:17 PM Result Value Ref Range PROTIME PATIENT 11.8 10.1 - 12.6 Seconds INR 1.1 TROPONIN I Collection Time: 05/06/24 1:17 PM Result Value Ref Range TROPONIN I 0.016 <=0.034 ng/mL N-Terminal Pro-Bnp Collection Time: 05/06/24 1:17 PM Result Value Ref Range NT-proBNP 18,200 (H) <=125 pg/mL Hospital Encounter on 05/06/24 CT ABDOMEN PELVIS WO CONTRAST Narrative CT ABDOMEN PELVIS WO CONTRAST 05/06/2024 2:22 PM HISTORY: Hematuria, gross/macroscopic COMPARISON: CT abdomen pelvis 04/27/2034 TECHNIQUE: Axial images of the abdomen and pelvis were acquired without administration of intravenous contrast. Coronal and sagittal reconstructions were also created. FINDINGS: Lack of intravenous contrast limits evaluation of solid organ lesions. LOWER CHEST: Trace bilateral pleural effusion and bronchial wall thickening, decreased from 04/27/2024. Marked global cardiomegaly. Marked coronary artery and moderate aortic valve calcification. Tip of a catheter is seen within upper right atrium HEPATOBILIARY: The liver is normal in size. No masses considering limitation of lack of intravenous contrast. The gallbladder is No biliary ductal dilatation. SPLEEN: Normal in size. PANCREAS: The parenchyma is within normal limits.No ductal dilatation. ADRENAL GLANDS: 1.7 cm left adrenal nodule with indeterminate density. KIDNEYS: The kidneys are atrophic, left worse than right. Lobulated right kidney with focal scarring in the multifocal scarring. The distal left ureter is a stable mildly dilated. A couple of right renal cysts measuring up to 1.5 cm. A 1.5 cm left renal lesion with layering intermediate density could represent milk of calcium or internal hemorrhage. GI TRACT: Colonic diverticulosis, extensive at sigmoid colon. No luminal dilatation or bowel wall thickening. The appendix is normal. PERITONEUM AND RETROPERITONEUM: No free air. Trace volume ascites in the pelvic cavity LYMPH NODES: There are scattered subcentimeter retroperitoneal and mesenteric lymph nodes, nonspecific. PELVIS/BLADDER: Marked prostatomegaly measuring 6.4 x 6 x 5.5 cm. The urinary bladder is decompressed by a Bella. Intravesical gas, could be iatrogenic. Circumferential bladder wall thickening. VESSELS: Within normal limits. Moderate calcified plaque abdominal aorta and ostium of celiac trunk, SMA and bilateral renal arteries, right greater than left. BONES AND SOFT TISSUES: Degenerative disc and facet arthropathy worse at the level of L5-S1 with osteophytosis and intervertebral disc space height loss associated with moderate bilateral L5-chest neural foraminal narrowing. Small fat-containing bilateral inguinal hernias, containing trace volume of fluid in the right. Impression Interval resolution of left hydronephrosis and mild residual left distal ureteral dilatation. Marked prostatomegaly and evidence of outlet obstruction, status post decompression of bladder by Bella. Atrophic left kidney. Possible complex cyst with internal hemorrhage versus layering milk of calcium. Interval decreased now trace bilateral pleural effusions. Other chronic findings. Casey De La Cruz D.O. Physician RTI Billing ID #[id number] Casey De La Cruz DO 05/06/24 1709 [facility] 2024-05-02 13:13:11 Problem: Falls, Risk of Goal: Absence of falls Outcome: Adequate for discharge Problem: Discharge Planning Goal: Adequate for discharge Outcome: Adequate for discharge Goal: Effective communication Outcome: Adequate for discharge Problem: Respiratory Function - Impaired Goal: Able to cough effectively Outcome: Adequate for discharge Goal: Adequate oxygenation Outcome: Adequate for discharge Goal: Adequate work of breathing Outcome: Adequate for discharge Goal: Patent airway Outcome: Adequate for discharge Problem: Pain Goal: Control of pain at or below patient's documented comfort goal Outcome: Adequate for discharge Goal: Reduction in pain sensation Outcome: Adequate for discharge Problem: Discharge Planning Goal: Adequate for discharge Outcome: Adequate for discharge Goal: Adequate to move to next level of care Outcome: Adequate for discharge Problem: Activity Intolerance Goal: Improved activity tolerance Outcome: Adequate for discharge Problem: Cardiac Output - Decreased Goal: Absence of signs and symptoms of decreased cardiac output Outcome: Adequate for discharge Goal: Cardiac output within specified parameters Outcome: Adequate for discharge Problem: Fluid Volume Excess Goal: Absence of fluid overload signs and symptoms Outcome: Adequate for discharge Problem: Skin integrity Impaired (Risk or Actual) Goal: Wound healing Outcome: Adequate for discharge Goal: Prevention of new skin breakdown Outcome: Adequate for discharge Problem: Tissue Perfusion - Altered, Risk of Goal: Hemodynamically stable Outcome: Adequate for discharge Problem: Procedure Routine Goal: Knowledge of procedure Outcome: Adequate for discharge Problem: Tissue Perfusion - Altered, Risk of Goal: Hemodynamically stable Outcome: Adequate for discharge Problem: Venous Thromboembolism, (actual or risk of) Goal: Absence of venous thromboembolism (Risk) Outcome: Adequate for discharge Goal: Prevent further complications associated with VTE diagnosis (Actual) Outcome: Adequate for discharge ENT SAFETY OFFICER Kitty William RN [facility] 2024-05-02 05:28:57 Problem: Falls, Risk of Goal: Absence of falls Outcome: Progressing as expected Problem: Discharge Planning Goal: Adequate for discharge Outcome: Progressing as expected Goal: Effective communication Outcome: Progressing as expected Problem: Respiratory Function - Impaired Goal: Able to cough effectively Outcome: Progressing as expected Goal: Adequate oxygenation Outcome: Progressing as expected Goal: Adequate work of breathing Outcome: Progressing as expected Goal: Patent airway Outcome: Progressing as expected Problem: Pain Goal: Control of pain at or below patient's documented comfort goal Outcome: Progressing as expected Goal: Reduction in pain sensation Outcome: Progressing as expected Problem: Discharge Planning Goal: Adequate for discharge Outcome: Progressing as expected Goal: Adequate to move to next level of care Outcome: Progressing as expected Problem: Activity Intolerance Goal: Improved activity tolerance Outcome: Progressing as expected Problem: Cardiac Output - Decreased Goal: Absence of signs and symptoms of decreased cardiac output Outcome: Progressing as expected Goal: Cardiac output within specified parameters Outcome: Progressing as expected Problem: Fluid Volume Excess Goal: Absence of fluid overload signs and symptoms Outcome: Progressing as expected Problem: Skin integrity Impaired (Risk or Actual) Goal: Wound healing Outcome: Progressing as expected Goal: Prevention of new skin breakdown Outcome: Progressing as expected Problem: Tissue Perfusion - Altered, Risk of Goal: Hemodynamically stable Outcome: Progressing as expected Problem: Procedure Routine Goal: Knowledge of procedure Outcome: Progressing as expected Problem: Tissue Perfusion - Altered, Risk of Goal: Hemodynamically stable Outcome: Progressing as expected Problem: Venous Thromboembolism, (actual or risk of) Goal: Absence of venous thromboembolism (Risk) Outcome: Progressing as expected Goal: Prevent further complications associated with VTE diagnosis (Actual) Outcome: Progressing as expected A Terrell RN [facility] 2024-05-01 19:42:20 Problem: Falls, Risk of Goal: Absence of falls Outcome: Progressing as expected Problem: Discharge Planning Goal: Adequate for discharge Outcome: Progressing as expected Goal: Effective communication Outcome: Progressing as expected Problem: Respiratory Function - Impaired Goal: Able to cough effectively Outcome: Progressing as expected Goal: Adequate oxygenation Outcome: Progressing as expected Goal: Adequate work of breathing Outcome: Progressing as expected Goal: Patent airway Outcome: Progressing as expected Problem: Pain Goal: Control of pain at or below patient's documented comfort goal Outcome: Progressing as expected Goal: Reduction in pain sensation Outcome: Progressing as expected Problem: Discharge Planning Goal: Adequate for discharge Outcome: Progressing as expected Goal: Adequate to move to next level of care Outcome: Progressing as expected Problem: Activity Intolerance Goal: Improved activity tolerance Outcome: Progressing as expected Problem: Cardiac Output - Decreased Goal: Absence of signs and symptoms of decreased cardiac output Outcome: Progressing as expected Goal: Cardiac output within specified parameters Outcome: Progressing as expected Problem: Fluid Volume Excess Goal: Absence of fluid overload signs and symptoms Outcome: Progressing as expected Problem: Skin integrity Impaired (Risk or Actual) Goal: Wound healing Outcome: Progressing as expected Goal: Prevention of new skin breakdown Outcome: Progressing as expected Problem: Tissue Perfusion - Altered, Risk of Goal: Hemodynamically stable Outcome: Progressing as expected Problem: Tissue Perfusion - Altered, Risk of Goal: Hemodynamically stable Outcome: Progressing as expected Problem: Procedure Routine Goal: Knowledge of procedure Outcome: Progressing as expected Problem: Venous Thromboembolism, (actual or risk of) Goal: Absence of venous thromboembolism (Risk) Outcome: Progressing as expected Goal: Prevent further complications associated with VTE diagnosis (Actual) Outcome: Progressing as expected A Zhou RN [facility] 2024-05-01 13:00:00 HEMODIALYSIS NURSING NOTE Number Hours: 3.0 hours Bath: 3K 3 Calcium Heparin: zero Access: right Catheter permanent subclavian Net UF: 0 L Weight: pre 96.5 kg, post 96.5 kg Post BP 133/68 Post Pulse 81 Antibiotics/Medications Given: none Complications/Events of Treatment: R CVC not working well. Lines were reversed but still not working well. Dr Coker was notified during rounds. Received order for alteplase. Alteplase was instill and dwell for 45 mins. Catheter dressing was changed noted some bleeding. Site was held till theres no bleeding noted. Pressure dressing was applied. BP dropped during the first hour of treatment, c/o not feeling well, blood was returned, HOB low. [place] better after blood was returned. Treatment was resumed after the alteplase. UF goal was decreased. Dr Coker informed and agreed for low UF. Treatment completed, blood returned. Ports flushed with saline and packed with heparin. Ports were clamped and capped. Left patient in room without distress nor complications, bed in lowest position, side rails up x2, call robert within reach, and endorsed to primary RN. Verbal report to: MARTHA Kenny Mode of Transport Back to Unit: NA - patient done at bedside ADCMS 2226 See hemodialysis flowsheet for details of treatment. [facility] 2024-05-01 08:29:53 Problem: Procedure Routine Goal: Knowledge of procedure Outcome: Progressing as expected Note: Hemodialysis Plan of care reviewed r/t treatment time, UF goal, and fluid restrictions. Also reviewed care of dialysis access during tx. Pt updated during tx as needed with teaching done. Also reviewed possible side effects of HD tx, such as s/s of hypotension, cramping (during tx and at rare times after tx), N/V, CP or any other concerns. Patient acknowledge understanding of treatment plan. [facility] 2024-05-01 00:28:37 Problem: Falls, Risk of Goal: Absence of falls Outcome: Progressing as expected Problem: Discharge Planning Goal: Adequate for discharge Outcome: Progressing as expected Goal: Effective communication Outcome: Progressing as expected Problem: Respiratory Function - Impaired Goal: Able to cough effectively Outcome: Progressing as expected Goal: Adequate oxygenation Outcome: Progressing as expected Goal: Adequate work of breathing Outcome: Progressing as expected Goal: Patent airway Outcome: Progressing as expected Problem: Pain Goal: Control of pain at or below patient's documented comfort goal Outcome: Progressing as expected Goal: Reduction in pain sensation Outcome: Progressing as expected Problem: Discharge Planning Goal: Adequate for discharge Outcome: Progressing as expected Goal: Adequate to move to next level of care Outcome: Progressing as expected Problem: Activity Intolerance Goal: Improved activity tolerance Outcome: Progressing as expected Problem: Cardiac Output - Decreased Goal: Absence of signs and symptoms of decreased cardiac output Outcome: Progressing as expected Goal: Cardiac output within specified parameters Outcome: Progressing as expected Problem: Fluid Volume Excess Goal: Absence of fluid overload signs and symptoms Outcome: Progressing as expected Problem: Skin integrity Impaired (Risk or Actual) Goal: Wound healing Outcome: Progressing as expected Goal: Prevention of new skin breakdown Outcome: Progressing as expected Problem: Tissue Perfusion - Altered, Risk of Goal: Hemodynamically stable Outcome: Progressing as expected Problem: Tissue Perfusion - Altered, Risk of Goal: Hemodynamically stable Outcome: Progressing as expected Problem: Procedure Routine Goal: Knowledge of procedure Outcome: Progressing as expected Problem: Venous Thromboembolism, (actual or risk of) Goal: Absence of venous thromboembolism (Risk) Outcome: Progressing as expected Goal: Prevent further complications associated with VTE diagnosis (Actual) Outcome: Progressing as expected A Almazan RN [facility] 2024-04-30 10:28:56 HEMODIALYSIS NURSING NOTE Hold dialysis today per Nephrology Dr Bishop. Primary Rn notified. A Dominguez RN [facility] 2024-04-30 08:36:12 Problem: Falls, Risk of Goal: Absence of falls Outcome: Progressing as expected Problem: Discharge Planning Goal: Adequate for discharge Outcome: Progressing as expected Goal: Effective communication Outcome: Progressing as expected Problem: Respiratory Function - Impaired Goal: Able to cough effectively Outcome: Progressing as expected Goal: Adequate oxygenation Outcome: Progressing as expected Goal: Adequate work of breathing Outcome: Progressing as expected Goal: Patent airway Outcome: Progressing as expected Problem: Pain Goal: Control of pain at or below patient's documented comfort goal Outcome: Progressing as expected Goal: Reduction in pain sensation Outcome: Progressing as expected Problem: Discharge Planning Goal: Adequate for discharge Outcome: Progressing as expected Goal: Adequate to move to next level of care Outcome: Progressing as expected Problem: Activity Intolerance Goal: Improved activity tolerance Outcome: Progressing as expected Problem: Cardiac Output - Decreased Goal: Absence of signs and symptoms of decreased cardiac output Outcome: Progressing as expected Goal: Cardiac output within specified parameters Outcome: Progressing as expected Problem: Fluid Volume Excess Goal: Absence of fluid overload signs and symptoms Outcome: Progressing as expected Problem: Skin integrity Impaired (Risk or Actual) Goal: Wound healing Outcome: Progressing as expected Goal: Prevention of new skin breakdown Outcome: Progressing as expected Problem: Tissue Perfusion - Altered, Risk of Goal: Hemodynamically stable Outcome: Progressing as expected Problem: Tissue Perfusion - Altered, Risk of Goal: Hemodynamically stable Outcome: Progressing as expected Problem: Procedure Routine Goal: Knowledge of procedure Outcome: Progressing as expected Problem: Venous Thromboembolism, (actual or risk of) Goal: Absence of venous thromboembolism (Risk) Outcome: Progressing as expected Goal: Prevent further complications associated with VTE diagnosis (Actual) Outcome: Progressing as expected ENT SAFETY OFFICER Ramon Robert RN [facility] 2024-04-29 14:09:19 HEMODIALYSIS NURSING NOTE Number Hours: 3.5 hours Bath: 3K 3 Ca Heparin: None Access: right Catheter permanent IJ Antibiotics/Medications Given: Flush Dialysis Circuit w/ 100mL of 0.9% NaCl (NS) - [id number] Complications/Events of Treatment: Mild hypotension occurred, was asymptomatic, UF paused, dialysate cooled, placed vascular position then it resolved.UF goal lowered, and UF resumed, and tx completed without further event. Pt completed HD tx w/o any issues or complications. Blood returned & cath access packed w/ Heparin then Clear Guard cath caps placed. Net UF: 1900 mL Weight: Pre HD weight - 99 kg. Post HD weight - 97 kg. Used bed scale. Post Dialysis Treatment: BP 119/50 Pulse 69 Handoff Report: Completed and given verbally at bedside to MARTHA Gavin Mode of Transport Back to Unit: Treatment performed at bedside. ICU 2109 See hemodialysis flowsheet for further details of the treatment. A Shaikh RN [facility] 2024-04-29 11:05:12 Problem: Falls, Risk of Goal: Absence of falls Outcome: Progressing as expected Problem: Discharge Planning Goal: Adequate for discharge Outcome: Progressing as expected Goal: Effective communication Outcome: Progressing as expected Problem: Respiratory Function - Impaired Goal: Able to cough effectively Outcome: Progressing as expected Goal: Adequate oxygenation Outcome: Progressing as expected Goal: Adequate work of breathing Outcome: Progressing as expected Goal: Patent airway Outcome: Progressing as expected Problem: Pain Goal: Control of pain at or below patient's documented comfort goal Outcome: Progressing as expected Goal: Reduction in pain sensation Outcome: Progressing as expected Problem: Discharge Planning Goal: Adequate for discharge Outcome: Progressing as expected Goal: Adequate to move to next level of care Outcome: Progressing as expected Problem: Activity Intolerance Goal: Improved activity tolerance Outcome: Progressing as expected Problem: Cardiac Output - Decreased Goal: Absence of signs and symptoms of decreased cardiac output Outcome: Progressing as expected Goal: Cardiac output within specified parameters Outcome: Progressing as expected Problem: Fluid Volume Excess Goal: Absence of fluid overload signs and symptoms Outcome: Progressing as expected Problem: Skin integrity Impaired (Risk or Actual) Goal: Wound healing Outcome: Progressing as expected Goal: Prevention of new skin breakdown Outcome: Progressing as expected Problem: Tissue Perfusion - Altered, Risk of Goal: Hemodynamically stable Outcome: Progressing as expected Problem: Tissue Perfusion - Altered, Risk of Goal: Hemodynamically stable Outcome: Progressing as expected Problem: Procedure Routine Goal: Knowledge of procedure Outcome: Progressing as expected Problem: Venous Thromboembolism, (actual or risk of) Goal: Absence of venous thromboembolism (Risk) Outcome: Progressing as expected Goal: Prevent further complications associated with VTE diagnosis (Actual) Outcome: Progressing as expected A Reina RN [facility] 2024-04-29 10:08:14 Hemodialysis: consent verification, pt identified by name & [facility] number by 2 staff members, call light in reach. Education: HD UF time & goal, s/s to report to healthcare team during and post treatment: Nausea/vomiting Muscle cramping SOB Chest pain Headache Low blood pressure Weakness Dizziness Blurred vision Bleeding at access site [facility] 2024-04-28 20:37:46 Problem: Falls, Risk of Goal: Absence of falls Outcome: Progressing as expected Problem: Discharge Planning Goal: Adequate for discharge Outcome: Progressing as expected Goal: Effective communication Outcome: Progressing as expected Problem: Respiratory Function - Impaired Goal: Adequate oxygenation Outcome: Progressing as expected Goal: Adequate work of breathing Outcome: Progressing as expected Goal: Patent airway Outcome: Progressing as expected Problem: Pain Goal: Control of pain at or below patient's documented comfort goal Outcome: Progressing as expected Goal: Reduction in pain sensation Outcome: Progressing as expected Problem: Discharge Planning Goal: Adequate for discharge Outcome: Progressing as expected Goal: Adequate to move to next level of care Outcome: Progressing as expected Problem: Activity Intolerance Goal: Improved activity tolerance Outcome: Progressing as expected Problem: Cardiac Output - Decreased Goal: Cardiac output within specified parameters Outcome: Progressing as expected Problem: Skin integrity Impaired (Risk or Actual) Goal: Prevention of new skin breakdown Outcome: Progressing as expected Problem: Venous Thromboembolism, (actual or risk of) Goal: Absence of venous thromboembolism (Risk) Outcome: Progressing as expected ENT SAFETY OFFICER Katerin Stoner RN [facility] 2024-04-27 22:18:21 Problem: Falls, Risk of Goal: Absence of falls Outcome: Progressing as expected Problem: Discharge Planning Goal: Adequate for discharge Outcome: Progressing as expected Goal: Effective communication Outcome: Progressing as expected Problem: Respiratory Function - Impaired Goal: Able to cough effectively Outcome: Progressing as expected Goal: Adequate oxygenation Outcome: Progressing as expected Goal: Adequate work of breathing Outcome: Progressing as expected Goal: Patent airway Outcome: Progressing as expected Problem: Pain Goal: Control of pain at or below patient's documented comfort goal Outcome: Progressing as expected Goal: Reduction in pain sensation Outcome: Progressing as expected Problem: Activity Intolerance Goal: Improved activity tolerance Outcome: Progressing as expected Problem: Skin integrity Impaired (Risk or Actual) Goal: Wound healing Outcome: Progressing as expected Goal: Prevention of new skin breakdown Outcome: Progressing as expected [facility] Ignacia Luque RN [facility] 2024-04-27 11:42:20 HEMODIALYSIS NURSING NOTE Number Hours: 3.0 hours Bath: 3K 3 Calcium Heparin: zero Access: right Catheter permanent IJ Net UF: 2000 ml. Weight: pre 99.9 kg, post 97.9 kg Post BP 156/60 Post Pulse 72 Antibiotics/Medications Given: None Complications/Events of Treatment: Tolerated treatment well. Left patient in stable condition.Dressing change done,no active bleeding from site. Left patient in stable condition. Verbal report given to Irma THOMAS Mode of Transport Back to Unit: NA - patient done at bedside See hemodialysis flowsheet for details of treatment. [facility] 2024-04-27 08:27:45 Hemodialysis Plan of care reviewed r/t treatment time & UF goal. Also reviewed possible side effects of HD tx, such as s/s of hypotension, cramping (during tx and at rare times after tx), N/V, CP or any other concerns. Patient acknowledge understanding of treatment plan. [facility] 2024-04-27 07:05:48 Problem: Falls, Risk of Goal: Absence of falls Outcome: Progressing as expected Problem: Discharge Planning Goal: Adequate for discharge Outcome: Progressing as expected Goal: Effective communication Outcome: Progressing as expected Problem: Respiratory Function - Impaired Goal: Able to cough effectively Outcome: Progressing as expected Goal: Adequate oxygenation Outcome: Progressing as expected Goal: Adequate work of breathing Outcome: Progressing as expected Goal: Patent airway Outcome: Progressing as expected Problem: Pain Goal: Control of pain at or below patient's documented comfort goal Outcome: Progressing as expected Goal: Reduction in pain sensation Outcome: Progressing as expected Problem: Discharge Planning Goal: Adequate for discharge Outcome: Progressing as expected Goal: Adequate to move to next level of care Outcome: Progressing as expected Problem: Activity Intolerance Goal: Improved activity tolerance Outcome: Progressing as expected Problem: Cardiac Output - Decreased Goal: Absence of signs and symptoms of decreased cardiac output Outcome: Progressing as expected Goal: Cardiac output within specified parameters Outcome: Progressing as expected Problem: Fluid Volume Excess Goal: Absence of fluid overload signs and symptoms Outcome: Progressing as expected Problem: Skin integrity Impaired (Risk or Actual) Goal: Wound healing Outcome: Progressing as expected Goal: Prevention of new skin breakdown Outcome: Progressing as expected ENT SAFETY OFFICER Irma Benton RN [facility] 2024-04-26 23:39:44 Problem: Falls, Risk of Goal: Absence of falls Outcome: Progressing as expected Problem: Discharge Planning Goal: Adequate for discharge Outcome: Progressing as expected Goal: Effective communication Outcome: Progressing as expected Problem: Respiratory Function - Impaired Goal: Able to cough effectively Outcome: Progressing as expected Goal: Adequate oxygenation Outcome: Progressing as expected Goal: Adequate work of breathing Outcome: Progressing as expected Goal: Patent airway Outcome: Progressing as expected Problem: Pain Goal: Control of pain at or below patient's documented comfort goal Outcome: Progressing as expected Goal: Reduction in pain sensation Outcome: Progressing as expected Problem: Discharge Planning Goal: Adequate for discharge Outcome: Progressing as expected Goal: Adequate to move to next level of care Outcome: Progressing as expected Problem: Activity Intolerance Goal: Improved activity tolerance Outcome: Progressing as expected Problem: Cardiac Output - Decreased Goal: Absence of signs and symptoms of decreased cardiac output Outcome: Progressing as expected Goal: Cardiac output within specified parameters Outcome: Progressing as expected Problem: Fluid Volume Excess Goal: Absence of fluid overload signs and symptoms Outcome: Progressing as expected Problem: Skin integrity Impaired (Risk or Actual) Goal: Wound healing Outcome: Progressing as expected Goal: Prevention of new skin breakdown Outcome: Progressing as expected Problem: Tissue Perfusion - Altered, Risk of Goal: Hemodynamically stable Outcome: Progressing as expected Problem: Procedure Routine Goal: Knowledge of procedure Outcome: Progressing as expected Problem: Tissue Perfusion - Altered, Risk of Goal: Hemodynamically stable Outcome: Progressing as expected Problem: Venous Thromboembolism, (actual or risk of) Goal: Absence of venous thromboembolism (Risk) Outcome: Progressing as expected Goal: Prevent further complications associated with VTE diagnosis (Actual) Outcome: Progressing as expected A Robles RN [facility] 2024-04-26 23:38:13 Problem: Falls, Risk of Goal: Absence of falls Outcome: Progressing as expected Problem: Discharge Planning Goal: Adequate for discharge Outcome: Progressing as expected Goal: Effective communication Outcome: Progressing as expected Problem: Respiratory Function - Impaired Goal: Able to cough effectively Outcome: Progressing as expected Goal: Adequate oxygenation Outcome: Progressing as expected Goal: Adequate work of breathing Outcome: Progressing as expected Goal: Patent airway Outcome: Progressing as expected Problem: Pain Goal: Control of pain at or below patient's documented comfort goal Outcome: Progressing as expected Goal: Reduction in pain sensation Outcome: Progressing as expected Problem: Discharge Planning Goal: Adequate for discharge Outcome: Progressing as expected Goal: Adequate to move to next level of care Outcome: Progressing as expected Problem: Activity Intolerance Goal: Improved activity tolerance Outcome: Progressing as expected Problem: Cardiac Output - Decreased Goal: Absence of signs and symptoms of decreased cardiac output Outcome: Progressing as expected Goal: Cardiac output within specified parameters Outcome: Progressing as expected Problem: Fluid Volume Excess Goal: Absence of fluid overload signs and symptoms Outcome: Progressing as expected Problem: Skin integrity Impaired (Risk or Actual) Goal: Wound healing Outcome: Progressing as expected Goal: Prevention of new skin breakdown Outcome: Progressing as expected Problem: Tissue Perfusion - Altered, Risk of Goal: Hemodynamically stable Outcome: Progressing as expected Problem: Procedure Routine Goal: Knowledge of procedure Outcome: Progressing as expected Problem: Tissue Perfusion - Altered, Risk of Goal: Hemodynamically stable Outcome: Progressing as expected [facility] 2024-04-26 18:10:29 HEMODIALYSIS NURSING NOTE Number Hours: 3.0 hours Bath: 4K 3 Calcium Heparin: zero Access: right Catheter permanent IJ Net UF: 2000 ml. Weight: pre 102.4 kg, post 100.4 kg Post BP 137/54 Post Pulse 71 Antibiotics/Medications Given: None Complications/Events of Treatment: tolerated treatment well. Patient's catheter insertion site still oozing minimally. Dressing change done,surgicel applied to site. No further bleeding at this time. Left patient in stable condition. Verbal report given to Taryn THOMAS Mode of Transport Back to Unit: NA - patient done at bedside See hemodialysis flowsheet for details of treatment. [facility] 2024-04-26 15:04:08 Hemodialysis Plan of care reviewed r/t treatment time & UF goal. Also reviewed possible side effects of HD tx, such as s/s of hypotension, cramping (during tx and at rare times after tx), N/V, CP or any other concerns. Patient acknowledge understanding of treatment plan. [facility] 2024-04-26 10:43:55 Problem: Falls, Risk of Goal: Absence of falls Outcome: Progressing as expected Problem: Discharge Planning Goal: Adequate for discharge Outcome: Progressing as expected Goal: Effective communication Outcome: Progressing as expected Problem: Respiratory Function - Impaired Goal: Able to cough effectively Outcome: Progressing as expected Goal: Adequate oxygenation Outcome: Progressing as expected Goal: Adequate work of breathing Outcome: Progressing as expected Goal: Patent airway Outcome: Progressing as expected Problem: Pain Goal: Control of pain at or below patient's documented comfort goal Outcome: Progressing as expected Goal: Reduction in pain sensation Outcome: Progressing as expected Problem: Discharge Planning Goal: Adequate for discharge Outcome: Progressing as expected Goal: Adequate to move to next level of care Outcome: Progressing as expected Problem: Activity Intolerance Goal: Improved activity tolerance Outcome: Progressing as expected Problem: Cardiac Output - Decreased Goal: Absence of signs and symptoms of decreased cardiac output Outcome: Progressing as expected Goal: Cardiac output within specified parameters Outcome: Progressing as expected Problem: Fluid Volume Excess Goal: Absence of fluid overload signs and symptoms Outcome: Progressing as expected Problem: Skin integrity Impaired (Risk or Actual) Goal: Wound healing Outcome: Progressing as expected Goal: Prevention of new skin breakdown Outcome: Progressing as expected Problem: Tissue Perfusion - Altered, Risk of Goal: Hemodynamically stable Outcome: Progressing as expected Problem: Procedure Routine Goal: Knowledge of procedure Outcome: Progressing as expected Problem: Tissue Perfusion - Altered, Risk of Goal: Hemodynamically stable Outcome: Progressing as expected [facility] Taryn Amaya RN [facility] 2024-04-25 23:20:01 HEMODIALYSIS NURSING NOTE Number Hours: 2.5 hours Bath: 2K 2.5 Calcium (low calcium) Heparin: zero Access: right Catheter permanent IJ Net UF: 3 L Weight: pre 108.5 kg, post 105.5 kg Post BP 139/58 Post Pulse 63 Antibiotics/Medications Given: none Complications/Events of Treatment: Patient denied complaints, tolerated treatment, and left in room without distress nor complications, safety precautions maintained. Verbal report to: MARTHA Ayala Mode of Transport Back to Unit: NA - patient done at bedside See hemodialysis flowsheet for details of treatment. [facility] 2024-04-25 23:14:57 Problem: Falls, Risk of Goal: Absence of falls Outcome: Progressing as expected Problem: Discharge Planning Goal: Adequate for discharge Outcome: Progressing as expected Goal: Effective communication Outcome: Progressing as expected Problem: Respiratory Function - Impaired Goal: Able to cough effectively Outcome: Progressing as expected Goal: Adequate oxygenation Outcome: Progressing as expected Goal: Adequate work of breathing Outcome: Progressing as expected Goal: Patent airway Outcome: Progressing as expected Problem: Pain Goal: Control of pain at or below patient's documented comfort goal Outcome: Progressing as expected Goal: Reduction in pain sensation Outcome: Progressing as expected Problem: Discharge Planning Goal: Adequate for discharge Outcome: Progressing as expected Goal: Adequate to move to next level of care Outcome: Progressing as expected Problem: Activity Intolerance Goal: Improved activity tolerance Outcome: Progressing as expected Problem: Cardiac Output - Decreased Goal: Absence of signs and symptoms of decreased cardiac output Outcome: Progressing as expected Goal: Cardiac output within specified parameters Outcome: Progressing as expected Problem: Fluid Volume Excess Goal: Absence of fluid overload signs and symptoms Outcome: Progressing as expected Problem: Skin integrity Impaired (Risk or Actual) Goal: Wound healing Outcome: Progressing as expected Goal: Prevention of new skin breakdown Outcome: Progressing as expected Problem: Tissue Perfusion - Altered, Risk of Goal: Hemodynamically stable Outcome: Progressing as expected Problem: Tissue Perfusion - Altered, Risk of Goal: Hemodynamically stable Outcome: Progressing as expected Problem: Procedure Routine Goal: Knowledge of procedure Outcome: Progressing as expected ENT SAFETY OFFICER Lucy Prabhakar RN [facility] 2024-04-25 21:13:59 Problem: Procedure Routine Goal: Knowledge of procedure Outcome: Progressing as expected Note: Hemodialysis Plan of care reviewed r/t treatment time & UF goal. Also reviewed possible side effects of HD tx, such as s/s of hypotension, cramping (during tx and at rare times after tx), N/V, CP or any other concerns. Patient acknowledge understanding of treatment plan. ENT SAFETY OFFICER [facility] 2024-04-25 18:48:35 Images from the original note were not included. Pharmacy Recommendations for Patient Admission: Patient family member stated that patient does not like to take any of prescribed medications. Patient takes only carvedilol, aspirin 81mg And supplements over the counter. May need to follow up on patient compliance The [facility] medication list has been updated and reflected in the chart below. Please use the [facility] Med List for ordering home doses during admission. Patient Adherence: Completely Non-Adherent to all medications. Source(s) used in interview: Family Member Medications Added Medications Removed Medications Modified Aspirin 81 mg daily None None Allergies as of 04/23/2024 - Reviewed 04/23/2024 Allergen Reaction Noted Diltiazem Rash 09/12/2011 Keflex [cephalexin] Rash 07/28/2014 Pharmacy Updated [facility] Med List Medication Sig aspirin 81 mg chewable tablet Take 1 tablet by mouth in the morning. carvediloL 6.25 mg tablet Take 1 tablet by mouth in the morning and 1 tablet in the evening. Take with meals. furosemide 40 mg tablet Take 1 tablet by mouth in the morning. Outpatient Pharmacy Contact Information: [facility] - [place], [place] - [address] [place] [id number] Thank you for the opportunity to participate in the care of this patient. ENT SAFETY OFFICER Nika Moya [facility] 2024-04-25 16:13:52 Problem: Falls, Risk of Goal: Absence of falls 04/25/2024 1613 by Leslye Reina RN Outcome: Progressing as expected 04/25/2024 1135 by Leslye Reina RN Outcome: Progressing as expected Problem: Discharge Planning Goal: Adequate for discharge 04/25/2024 1613 by Leslye Reina RN Outcome: Progressing as expected 04/25/2024 1135 by Leslye Reina RN Outcome: Progressing as expected Goal: Effective communication 04/25/2024 1613 by Leslye Reina RN Outcome: Progressing as expected 04/25/2024 1135 by Leslye Reina RN Outcome: Progressing as expected Problem: Respiratory Function - Impaired Goal: Able to cough effectively 04/25/2024 1613 by Leslye Reina RN Outcome: Progressing as expected 04/25/2024 1135 by Leslye Reina RN Outcome: Progressing as expected Goal: Adequate oxygenation 04/25/2024 1613 by Leslye Reina RN Outcome: Progressing as expected 04/25/2024 1135 by Leslye Reina RN Outcome: Progressing as expected Goal: Adequate work of breathing 04/25/2024 1613 by Leslye Reina RN Outcome: Progressing as expected 04/25/2024 1135 by Leslye Reina RN Outcome: Progressing as expected Goal: Patent airway 04/25/2024 1613 by Leslye Reina RN Outcome: Progressing as expected 04/25/2024 1135 by Leslye Reina RN Outcome: Progressing as expected Problem: Pain Goal: Control of pain at or below patient's documented comfort goal 04/25/2024 1613 by Leslye Reina RN Outcome: Progressing as expected 04/25/2024 1135 by Leslye Reina RN Outcome: Progressing as expected Goal: Reduction in pain sensation 04/25/2024 1613 by Leslye Reina RN Outcome: Progressing as expected 04/25/2024 1135 by Leslye Reina RN Outcome: Progressing as expected Problem: Discharge Planning Goal: Adequate for discharge 04/25/2024 1613 by Leslye Reina RN Outcome: Progressing as expected 04/25/2024 1135 by Leslye Reina RN Outcome: Progressing as expected Goal: Adequate to move to next level of care 04/25/2024 1613 by Leslye Reina RN Outcome: Progressing as expected 04/25/2024 1135 by Leslye Reina RN Outcome: Progressing as expected Problem: Activity Intolerance Goal: Improved activity tolerance 04/25/2024 1613 by Leslye Reina RN Outcome: Progressing as expected 04/25/2024 1135 by Leslye Reina RN Outcome: Progressing as expected Problem: Cardiac Output - Decreased Goal: Absence of signs and symptoms of decreased cardiac output 04/25/2024 1613 by Leslye Reina RN Outcome: Progressing as expected 04/25/2024 1135 by Leslye Reina RN Outcome: Progressing as expected Goal: Cardiac output within specified parameters 04/25/2024 1613 by Leslye Reina RN Outcome: Progressing as expected 04/25/2024 1135 by Leslye Reina RN Outcome: Progressing as expected Problem: Fluid Volume Excess Goal: Absence of fluid overload signs and symptoms 04/25/2024 1613 by Leslye Reina RN Outcome: Progressing as expected 04/25/2024 1135 by Leslye Reina RN Outcome: Progressing as expected Problem: Skin integrity Impaired (Risk or Actual) Goal: Wound healing 04/25/2024 1613 by Leslye Reina RN Outcome: Progressing as expected 04/25/2024 1135 by Leslye Reina RN Outcome: Progressing as expected Goal: Prevention of new skin breakdown 04/25/2024 1613 by Leslye Reina RN Outcome: Progressing as expected 04/25/2024 1135 by Leslye Reina RN Outcome: Progressing as expected Problem: Tissue Perfusion - Altered, Risk of Goal: Hemodynamically stable 04/25/2024 1613 by Leslye Reina RN Outcome: Progressing as expected 04/25/2024 1135 by Leslye Reina RN Outcome: Progressing as expected [facility] 2024-04-25 11:36:24 Problem: Falls, Risk of Goal: Absence of falls Outcome: Progressing as expected Problem: Discharge Planning Goal: Adequate for discharge Outcome: Progressing as expected Goal: Effective communication Outcome: Progressing as expected Problem: Respiratory Function - Impaired Goal: Able to cough effectively Outcome: Progressing as expected Goal: Adequate oxygenation Outcome: Progressing as expected Goal: Adequate work of breathing Outcome: Progressing as expected Goal: Patent airway Outcome: Progressing as expected Problem: Pain Goal: Control of pain at or below patient's documented comfort goal Outcome: Progressing as expected Goal: Reduction in pain sensation Outcome: Progressing as expected Problem: Discharge Planning Goal: Adequate for discharge Outcome: Progressing as expected Goal: Adequate to move to next level of care Outcome: Progressing as expected Problem: Activity Intolerance Goal: Improved activity tolerance Outcome: Progressing as expected Problem: Cardiac Output - Decreased Goal: Absence of signs and symptoms of decreased cardiac output Outcome: Progressing as expected Goal: Cardiac output within specified parameters Outcome: Progressing as expected Problem: Fluid Volume Excess Goal: Absence of fluid overload signs and symptoms Outcome: Progressing as expected Problem: Skin integrity Impaired (Risk or Actual) Goal: Wound healing Outcome: Progressing as expected Goal: Prevention of new skin breakdown Outcome: Progressing as expected Problem: Tissue Perfusion - Altered, Risk of Goal: Hemodynamically stable Outcome: Progressing as expected [facility] 2024-04-25 09:26:06 Mission Assessment Specialist attempted visited with patient. Mission Assessment Specialist provided pastoral presence, and silent prayer for healing. Pastoral care will continue to follow up as needed. Rev.Crystal Chago Garcia I Department of Pastoral Care Pager: [phone] ENT SAFETY OFFICER Nay Anders [facility] 2024-04-25 04:36:16 Problem: Falls, Risk of Goal: Absence of falls Outcome: Progressing as expected Problem: Discharge Planning Goal: Adequate for discharge Outcome: Progressing as expected Goal: Effective communication Outcome: Progressing as expected Problem: Respiratory Function - Impaired Goal: Able to cough effectively Outcome: Progressing as expected Goal: Adequate oxygenation Outcome: Progressing as expected Goal: Adequate work of breathing Outcome: Progressing as expected Goal: Patent airway Outcome: Progressing as expected Problem: Pain Goal: Control of pain at or below patient's documented comfort goal Outcome: Progressing as expected Goal: Reduction in pain sensation Outcome: Progressing as expected Problem: Discharge Planning Goal: Adequate for discharge Outcome: Progressing as expected Goal: Adequate to move to next level of care Outcome: Progressing as expected Problem: Activity Intolerance Goal: Improved activity tolerance Outcome: Progressing as expected Problem: Cardiac Output - Decreased Goal: Absence of signs and symptoms of decreased cardiac output Outcome: Progressing as expected Goal: Cardiac output within specified parameters Outcome: Progressing as expected Problem: Fluid Volume Excess Goal: Absence of fluid overload signs and symptoms Outcome: Progressing as expected Problem: Skin integrity Impaired (Risk or Actual) Goal: Wound healing Outcome: Progressing as expected Goal: Prevention of new skin breakdown Outcome: Progressing as expected Problem: Tissue Perfusion - Altered, Risk of Goal: Hemodynamically stable Outcome: Progressing as expected [facility] 2024-04-24 23:18:15 Problem: Falls, Risk of Goal: Absence of falls Outcome: Progressing as expected Problem: Discharge Planning Goal: Adequate for discharge Outcome: Progressing as expected Goal: Effective communication Outcome: Progressing as expected Problem: Respiratory Function - Impaired Goal: Able to cough effectively Outcome: Progressing as expected Goal: Adequate oxygenation Outcome: Progressing as expected Goal: Adequate work of breathing Outcome: Progressing as expected Goal: Patent airway Outcome: Progressing as expected Problem: Pain Goal: Control of pain at or below patient's documented comfort goal Outcome: Progressing as expected Goal: Reduction in pain sensation Outcome: Progressing as expected Problem: Discharge Planning Goal: Adequate for discharge Outcome: Progressing as expected Goal: Adequate to move to next level of care Outcome: Progressing as expected Problem: Activity Intolerance Goal: Improved activity tolerance Outcome: Progressing as expected Problem: Cardiac Output - Decreased Goal: Absence of signs and symptoms of decreased cardiac output Outcome: Progressing as expected Goal: Cardiac output within specified parameters Outcome: Progressing as expected Problem: Fluid Volume Excess Goal: Absence of fluid overload signs and symptoms Outcome: Progressing as expected Problem: Skin integrity Impaired (Risk or Actual) Goal: Wound healing Outcome: Progressing as expected Goal: Prevention of new skin breakdown Outcome: Progressing as expected [facility] Dianna Lyle RN [facility] 2024-04-24 15:58:57 Problem: Falls, Risk of Goal: Absence of falls Outcome: Progressing as expected Problem: Discharge Planning Goal: Adequate for discharge Outcome: Progressing as expected Goal: Effective communication Outcome: Progressing as expected Problem: Respiratory Function - Impaired Goal: Able to cough effectively Outcome: Progressing as expected Goal: Adequate oxygenation Outcome: Progressing as expected Goal: Adequate work of breathing Outcome: Progressing as expected Goal: Patent airway Outcome: Progressing as expected Problem: Pain Goal: Control of pain at or below patient's documented comfort goal Outcome: Progressing as expected Goal: Reduction in pain sensation Outcome: Progressing as expected Problem: Discharge Planning Goal: Adequate for discharge Outcome: Progressing as expected Goal: Adequate to move to next level of care Outcome: Progressing as expected Problem: Activity Intolerance Goal: Improved activity tolerance Outcome: Progressing as expected Problem: Cardiac Output - Decreased Goal: Absence of signs and symptoms of decreased cardiac output Outcome: Progressing as expected Goal: Cardiac output within specified parameters Outcome: Progressing as expected Problem: Fluid Volume Excess Goal: Absence of fluid overload signs and symptoms Outcome: Progressing as expected Problem: Skin integrity Impaired (Risk or Actual) Goal: Wound healing Outcome: Progressing as expected Goal: Prevention of new skin breakdown Outcome: Progressing as expected [facility] 2024-04-24 02:18:17 Problem: Falls, Risk of Goal: Absence of falls Outcome: Progressing as expected Problem: Discharge Planning Goal: Adequate for discharge Outcome: Progressing as expected Goal: Effective communication Outcome: Progressing as expected Problem: Respiratory Function - Impaired Goal: Able to cough effectively Outcome: Progressing as expected Goal: Adequate oxygenation Outcome: Progressing as expected Goal: Adequate work of breathing Outcome: Progressing as expected Goal: Patent airway Outcome: Progressing as expected Problem: Pain Goal: Control of pain at or below patient's documented comfort goal Outcome: Progressing as expected Goal: Reduction in pain sensation Outcome: Progressing as expected Problem: Discharge Planning Goal: Adequate for discharge Outcome: Progressing as expected Goal: Adequate to move to next level of care Outcome: Progressing as expected Problem: Activity Intolerance Goal: Improved activity tolerance Outcome: Progressing as expected Problem: Cardiac Output - Decreased Goal: Absence of signs and symptoms of decreased cardiac output Outcome: Progressing as expected Goal: Cardiac output within specified parameters Outcome: Progressing as expected Problem: Fluid Volume Excess Goal: Absence of fluid overload signs and symptoms Outcome: Progressing as expected Problem: Skin integrity Impaired (Risk or Actual) Goal: Wound healing Outcome: Progressing as expected Goal: Prevention of new skin breakdown Outcome: Progressing as expected [facility] 2024-04-23 17:04:44 Problem: Falls, Risk of Goal: Absence of falls Outcome: Progressing as expected Problem: Discharge Planning Goal: Adequate for discharge Outcome: Progressing as expected Goal: Effective communication Outcome: Progressing as expected Problem: Respiratory Function - Impaired Goal: Able to cough effectively Outcome: Progressing as expected Goal: Adequate oxygenation Outcome: Progressing as expected Goal: Adequate work of breathing Outcome: Progressing as expected Goal: Patent airway Outcome: Progressing as expected Problem: Pain Goal: Control of pain at or below patient's documented comfort goal Outcome: Progressing as expected Goal: Reduction in pain sensation Outcome: Progressing as expected Problem: Discharge Planning Goal: Adequate for discharge Outcome: Progressing as expected Goal: Adequate to move to next level of care Outcome: Progressing as expected Problem: Activity Intolerance Goal: Improved activity tolerance Outcome: Progressing as expected Problem: Cardiac Output - Decreased Goal: Absence of signs and symptoms of decreased cardiac output Outcome: Progressing as expected Goal: Cardiac output within specified parameters Outcome: Progressing as expected Problem: Fluid Volume Excess Goal: Absence of fluid overload signs and symptoms Outcome: Progressing as expected Problem: Skin integrity Impaired (Risk or Actual) Goal: Wound healing Outcome: Progressing as expected Goal: Prevention of new skin breakdown Outcome: Progressing as expected A Garcia RN [facility] 2024-04-23 13:22:02 Patient admitted to [facility] Surg for diagnosis of acute congestive heart failure, SOB, Chronic kidney disease. Patient agrees to admission, discussed plan of care with patient and family. Patient is awake, A&Ox4, RR even and unlabored on RA. Color appropriate for race. PIV intact x1. No adverse reaction to medications administered while in ED. Belongings with patient to unit. A Valdez RN [facility] 2024-04-23 13:10:34 Nurse Report Report given to Alyssa. Chief complaint, assessment findings, infusion verify and orders reviewed. Char Valdez RN [facility] 2024-04-23 12:29:52 Called dietary for food tray. A Zhou RN [facility] 2024-04-23 11:20:34 Received report from Gisselle. [facility] 2024-04-23 10:37:38 Mayank Hurley is a 79 year old male c/o shortness of breath, bilat lower leg swelling weakness for 1 week, saw Dr. Macedo, pt poor historian, hard to sleep when lays flat, sleeps in recliner x 1 week, alert speaking in complete sentences, bilat mod leg edema A Mercado RN [facility] 2024-04-23 10:30:00 [facility] Emergency Department Note Patient Name: Mayank Hurley Date of : 1945 79 year old male Treatment Room: TR8/8 Primary Care Physician: Lilliam Crowley Patient Escorted by: Family [5] Mode of Arrival: Personal means [1] EMS Treatment Prior to ED Arrival: [employer] treatment: None Travel and Exposure Screening: Symptoms Does patient have any of these symptoms?: (not recorded) Exposure Screening Has patient had contact with someone with a communicable disease in the last month?: (not recorded) Diseases exposed to:: (not recorded) Is Patient ?: (not recorded) Exposure Date: (not recorded) Chief Complaint: Chief Complaint Patient presents with Shortness of Breath Weakness History of Present Illness: Mayank, 79yM presents with c/o fatigue and SOB. 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 He admits feeling lightheaded at times, but denies syncope. +SOB with exertion. No chest pain fever or illness. noted his leg swelling approx 1 week ago[address] They saw Dr Sharp who started him on lasix 40mg daily and coreg 6.25mg for CHF. Known CKD with h/o HD that was stopped approx 5 yrs ago. He makes urine, but has had little increased output since starting lasix 40mg daily x 5 days. Past Medical History/Immunizations: Past Medical History: Diagnosis Date BPH (benign prostatic hyperplasia) Erectile dysfunction GERD (gastroesophageal reflux disease) HTN (hypertension) Tetanus received in last 5 years: No Allergies: Allergies Allergen Reactions Diltiazem Rash Keflex [Cephalexin] Rash Past Social History: Tobacco Use Never smoked or used smokeless tobacco. Alcohol Use Yes; 8.3 - 16.7 standard drinks of alcohol per week; 10-20 drinks. Comments: daily Drug Use No. Past Surgical History: History reviewed. No pertinent surgical history. Review of Systems: Review of Systems Constitutional: Positive for fatigue. Negative for fever. Respiratory: Positive for cough and shortness of breath. Cardiovascular: Positive for leg swelling. Negative for chest pain. Gastrointestinal: Negative for abdominal pain, diarrhea and vomiting. Genitourinary: Positive for scrotal swelling. Physical Exam: ED Triage Vitals Weight 04/23/24 1037 119.7 kg (264 lb) Actual or estimated 04/23/24 1037 Estimated by patient/family report Height 04/23/24 1037 1.88 m (6' 2") BP 04/23/24 1037 (!) 154/69 Pulse 04/23/24 1037 72 Resp 04/23/24 1037 22 Temp 04/23/24 1037 36.6 ?C (97.9 ?F) Temp source 04/23/24 1037 Oral SpO2 04/23/24 1037 97 % Measured on 04/23/24 1053 Room air Physical Exam Vitals and nursing note reviewed. Constitutional: General: He is not in acute distress. HENT: Head: Normocephalic. Nose: Nose normal. Mouth/Throat: Mouth: Mucous membranes are moist. Cardiovascular: Rate and Rhythm: Normal rate and regular rhythm. Heart sounds: Murmur heard. Pulmonary: Breath sounds: Rales present. Abdominal: Palpations: Abdomen is soft. Tenderness: There is no abdominal tenderness. Genitourinary: Comments: Scrotal edema Musculoskeletal: Cervical back: Normal range of motion and neck supple. Right lower leg: Edema (4+ to knees) present. Left lower leg: Edema (4+ to knees) present. Neurological: Mental Status: He is alert and oriented to person, place, and time. Motor: No weakness. Radiology: XR CHEST 1 VW Final Result ORDERING PHYSICIAN: Aliyah RASMUSSEN. HISTORY: sob TECHNIQUE: AP COMPARISON: None. FINDINGS: Lungs: Diffuse prominence of interstitial markings is seen. There is bibasal consolidation Pleura: Small pleural effusions are present. There is no pneumothorax. Mediastinum/Susan: No masses or adenopathy. Heart: The heart is not enlarged. Other: No acute osseous abnormality is seen. IMPRESSION Bibasal consolidation, pulmonary vascular congestion, and small pleural effusions. End of Report Lab Results: Lab Results N-TERMINAL PRO-BNP - Abnormal Result Value Ref Range NT-proBNP 43,600 (*) <=125 pg/mL CBC WITH DIFF - Abnormal WBC 7.10 4.20 - 10.70 10*3/?L RBC 4.47 4.26 - 5.52 10*6/?L HGB 12.8 12.2 - 16.4 g/dL HCT 39.2 38.4 - 49.3 % MCV 87.7 81.7 - 95.6 fL MCH 28.6 26.1 - 32.7 pg MCHC 32.7 31.2 - 35.0 g/dL RDW-SD 47.2 38.5 - 51.6 fL RDW-CV 14.7 12.1 - 15.4 % PLT 176 150 - 328 10*3/?L MPV 11.1 9.8 - 13.0 fL NRBC/100 WBC 0.0 0.0 - 10.0 /100 WBCs NRBC x10 3 <0.01 10*3/?L GRAN MAT (NEUT) % 70.6 % IMM GRAN % 0.10 % LYMPH % 13.1 % MONO % 9.2 % EOS % 6.2 % BASO % 0.8 % GRAN MAT x10 3 (ANC) 5.01 1.99 - 6.95 10*3/uL IMM GRAN x10 3 <0.03 0.00 - 0.06 10*3/uL LYMPH x10 3 0.93 (*) 1.09 - 3.23 10*3/uL MONO x10 3 0.65 0.36 - 1.02 10*3/uL EOS x10 3 0.44 0.06 - 0.53 10*3/uL BASO x10 3 0.06 0.01 - 0.09 10*3/uL COMP. METABOLIC PANEL (81945) - Abnormal NA 131 (*) 135 - 145 mmol/L K 4.0 3.5 - 5.0 mmol/L CL 100 98 - 108 mmol/L CO2 TOTAL 23 23 - 31 mmol/L AGAP 8 2 - 16 BUN 31 (*) 7 - 23 mg/dL GLUCOSE 90 70 - 110 mg/dL CREATININE 3.61 (*) 0.60 - 1.25 mg/dL TOTAL BILI 0.8 0.1 - 1.1 mg/dL CALCIUM 8.4 (*) 8.6 - 10.6 mg/dL T PROTEIN 6.2 (*) 6.3 - 8.2 g/dL ALBUMIN 3.7 3.5 - 5.0 g/dL ALK PHOS 50 34 - 122 U/L ALTv 22 5 - 50 U/L AST(SGOT) 22 13 - 40 U/L eGFR 16.3 mL/min/1.73m2 URINALYSIS - Abnormal APPEARANCE Clear Clear COLOR Straw (*) Yellow PH 5.0 4.8 - 8.0 SP GRAVITY 1.005 1.003 - 1.030 GLU U QUAL Normal Normal BLOOD Negative Negative KETONES Negative Negative PROTEIN Negative Negative UROBILIN Normal Normal BILIRUBIN Negative Negative NITRITE Negative Negative LEUK VI Negative Negative RBC/HPF 2 0 - 3 HPF WBC/HPF 1 0 - 5 HPF BACTERIA Negative Negative MUCOUS Slight (*) Negative LPF MAGNESIUM - Normal MAGNESIUM 1.7 1.7 - 2.4 mg/dL TROPONIN I - Normal TROPONIN I 0.031 <=0.034 ng/mL INFLUENZA A/B RSV COVID NAAT EKG: If EKG completed, see Procedure Note. Orders and Treatments: Orders Placed This Encounter Procedures XR CHEST 1 VW US RETROPERITONEAL COMPLETE N-Terminal Pro-Bnp Cbc with Diff Comp. Metabolic Panel (58450) Magnesium Troponin I Urinalysis Influenza A B RSV COVID NAAT Glycosylated Hemoglobin (A1C) Lipid Panel (55024)(Total Cholesterol, Triglycerides, HDL) Thyroid Stimulating Hormone Basic Metabolic Panel (NA, K, CL, CO2, GLUCOSE, BUN, CREATININE, CA) Magnesium Phosphorus N-Terminal Pro-Bnp SODIUM, URINE RANDOM CREATININE, URINE RANDOM Consult Nephrology: General Nephrology Consult Cardiac Rehab - Inpatient Phase 1, Indication(s): CHF - This admission Consult Cardiology - For ADC Patients Only O2 Per Protocol Nasal Cannula Orders Placed This Encounter Medications furosemide (LASIX) injection 40 mg acetaminophen (TYLENOL) tablet 650 mg furosemide (LASIX) injection 40 mg heparin (porcine) injection 5,000 Units tamsulosin (FLOMAX) capsule 0.4 mg ondansetron (ZOFRAN (PF)) injection 4 mg carvediloL (COREG) tablet 3.125 mg amLODIPine (NORVASC) tablet 5 mg carvediloL 6.25 mg tablet furosemide 40 mg tablet First Provider Eval: ED Events Date/Time Event User Comments 04/23/24 1035 Medical Screening Begins ALKA ARELLANO -- 04/23/24 1035 First Provider Evaluation ALKA ARELLANO -- AdmissionCare Guideline: Heart Failure - INPT, Inpatient Based on the indications selected for the patient, the bed status of Inpatient was determined to be MET The following indications were selected as present at the time of evaluation of the patient: - Clinical Indications for Admission to Inpatient Care - Admission is indicated for 1 or more of the following: - Anasarca or severe peripheral edema (eg, impairs ability to void or ambulate) AdmissionCare documentation entered by: Aliyah Rasmussen [facility], 28th edition, Copyright ? 2023 [facility] [email or web address] [facility] All Rights Reserved. [id number]:00 ED COURSE Diagnosis/Impression as of 04/23/24 1414 SOB (shortness of breath) Acute congestive heart failure, unspecified heart failure type Chronic kidney disease, unspecified CKD stage Procedures: Procedures MDM: Medical Decision Making Karma TalleyyM presents with c/o fatigue and SOB. 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 He admits feeling lightheaded at times, but denies syncope. +SOB with exertion. No chest pain fever or illness. noted his leg swelling approx 1 week [address] They saw Dr Sharp who started him on lasix 40mg daily and coreg 6.25mg for CHF. Known CKD with h/o HD that was stopped approx 5 yrs ago. He makes urine, but has had little increased output since starting lasix 40mg daily x 5 days. VSS Volume overload with + rales on exam, bilateral LE pitting edema to knees, scrotal edema. Lasix 40mg IV on arrival with mild urine output. Pt d/w DR Goins who agrees with admission for diuresis. He reports pt's recent Cr was around 4 as outpt BNP 43,600 BUN 31, Cr 3.6 Pt altert and comfortable at rest. Agreeable for admission Pt admit d/w Dr Aguirre, hospitalist Problems Addressed: Acute congestive heart failure, unspecified heart failure type: acute illness or injury Chronic kidney disease, unspecified CKD stage: acute illness or injury SOB (shortness of breath): acute illness or injury Amount and/or Complexity of Data Reviewed Labs: ordered. Decision-making details documented in ED Course. Radiology: ordered. Decision-making details documented in ED Course. Risk Prescription drug management. Decision regarding hospitalization. Flowsheet Documentation: Scoring Tools: No data recorded Disposition/Condition: ED Disposition ED Disposition Admit - Inpatient Condition -- Comment -- Electronically signed by: Aliyah Rasmussen [facility] 04/23/24 1414 ENT SAFETY OFFICER Associated attestation - Yoandy Knox MD - 04/24/2024 11:51 AM PATIENT SAFETY OFFICER On the date of service, I reviewed the patient s history, exam findings, diagnostic and any interventions or procedures in detail of the assigned advance practice provider and was available for consultation. Yoandy Knox Jr., MD Clinical [employer] [facility] Emergency Department [facility] 2024-04-23 10:30:00 AdmissionCare Guideline: Heart Failure - INPT, Inpatient Based on the indications selected for the patient, the bed status of Inpatient was determined to be MET The following indications were selected as present at the time of evaluation of the patient: - Clinical Indications for Admission to Inpatient Care - Admission is indicated for 1 or more of the following: - Anasarca or severe peripheral edema (eg, impairs ability to void or ambulate) AdmissionCare documentation entered by: Aliyah Rasmussen [facility] [employer], 28th edition, Copyright ? 2023 [facility] [email or web address] [facility] All Rights Reserved. [id number] ENT SAFETY OFFICER [facility] 2015-12-03 11:35:00 EXAM: CT BRAIN WITHOUT CONTRAST INDICATION: Subdural hemorrhage COMPARISON: Outside CT 11/15/2015 TECHNIQUE: Routine axial CT images of the brain were obtained. DISCUSSION: Stable size of right frontal convexity subdural hemorrhage now decreased in attenuation. No interval new hemorrhage. No mass effect. No acute infarction. No hydrocephalus. Calvarium is intact. Paranasal sinuses are clear. IMPRESSION: Stable size of right convexity subdural hematoma. No interval new hemorrhage. No mass effect. CIERRA Alvarez 2015-11-15 09:55:00 EXAM: XR CHEST 1 VIE W DATE: 11/15/2015 8:19 AM CDT INDICATION: Abnormal chest sounds. FINDINGS: Comparison is made to November 13. The cardiomediastinal silhouette is stable. The lungs are clear bilaterally well-expanded. No pleural effusions are seen. IMPRESSION: The lungs are clear. [facility] 2015-11-15 02:02:07 EXAM: CT BRAIN WITHOUT CONTRAST DATE: 11/15/2015 1:57 AM CDT INDICATION: Headache with Dizziness and Giddiness COMPARISON: Outside CT dated 11/14/2015 at 2130 hours TECHNIQUE: Routine axial CT images of the brain were obtained. DLP: 1174 mGy-cm FINDINGS: A subdural hematoma in the right frontal convexity, with a maximum thickness of 12 mm is identified, similar in appearance as compared to the previous exam. Owing to pre-existing volume loss, there is no significant mass effect. No parenchymal abnormality is [...] shift or herniation No other traumatic findings [facility]
[2024-09-09] MEDS ORDERED: FLEET ENEMA ADULT PR ONE ×2 (10:56→11:51)
[2024-09-09 11:14] LABS: Absolute Basophils 0.1 K/uL (0-0.5); Absolute Eosinophils 1.3 K/uL (0-0.5); Absolute Lymphocytes (CBC) 1.4 K/uL (0.7-4.9); Absolute Monocytes 0.6 K/uL (0.1-1.3); Absolute Neutrophil 8.6 K/uL (1.8-8.0); Basophils % 0.7 % (0-1.3); Hematocrit 32.7 % (39.6-49.0); Hemoglobin 10.7 g/dL (13.6-17.9); Lymphocytes % 11.7 % (15.3-44.8); MCHC 32.7 g/dL (32.0-36.0); MCV 82.7 fL (80-100); MPV 7.9 fL (7.6-11.3); Monocytes % 4.7 % (3.3-12.3); Neutrophils % 71.9 % (41.7-73.7); Platelets 162 thou/uL (152-406); RBC Red Blood Cell Count 3.96 M/uL (4.33-5.43); Red Cell Distribution Width 15.9 % (12.1-15.2)
--- NOTE | 2024-09-09 11:18 | RAD REPORT ---
EXAMINATION: CT ABDOMEN AND PELVIS WITHOUT CONTRAST CLINICAL INDICATION: Abdominal pain TECHNIQUE: CT abdomen and pelvis was performed, as per department protocol. IV contrast and oral was not administered.Axial, sagittal and coronal reconstructions were obtained. One or more of the following dose reduction techniques were used: Automated exposure control, adjustment of the mA and/o r kV according to the patient size, and/or iterative reconstruction. Unless otherwise specified, incidental findings do not require dedicated imaging follow-up. [id number]. COMPARISON: 2018 FINDINGS: The lack of intravenous and oral contrast limits evaluation of solid organs, vessels and bowel. Moderate right and small left pleural effusions. 1.4 cm low to intermediate density mass stones off of the left kidney. Small right renal cyst. No hydronephrosis. Left renal cortical thinning. Bella catheter within the bladder. Moderate prostatic enlargement. No evidence of diverticulitis The rectum is distended with stool measuring 7.2 cm. Moderate amount of stool within the colon Small left and small to moderate right inguinal hernias. Small amount of fluid is present within the right. Inguinal hernia. Spondylosis lumbar spine results in spinal stenosis. IMPRESSION: Rectum is distended with stool which may indicate a fecal impaction. 1.4 cm left renal mass probably a benign complex cyst. Nonemergent renal ultrasound recommended. Moderate right pleural effusion
[2024-09-09 11:28] LABS: Albumin 3.3 g/dL (3.4-5.0); Albumin/Globulin Ratio 0.9 (1.1-1.8); Anion Gap 7.3 mEq/L (5.0-15.0); Bilirubin Total 0.9 mg/dL (0.2-1.0); Globulin 3.6 g/dL (2.3-3.5); Potassium 3.3 mEq/L (3.5-5.1); Protein, Total 6.9 g/dL (6.4-8.2)
[2024-09-09] MEDS ORDERED: FUROSEMIDE 40 MG/4 ML VIAL ONE (13:47)
--- NOTE | 2024-09-09 14:13 | RAD REPORT ---
EXAMINATION: ONE VIEW CHEST XR CLINICAL INDICATION: DYSPNEA TECHNIQUE: Frontal chest projection is submitted. Examination is limited by patient positioning and t echnique. COMPARISON: 08/13/2024 FINDINGS: Small left and moderate right pleural effusion is suspected. The heart is moderately enlarged in size . Sternotomy wires. Right-sided venous catheters tip in SVC.
--- NOTE | 2024-09-09 14:24 | EDPHYS ---
Physician Documentation [facility] Name: Mayank Cunha Age: 79 yrs Sex: Male : 1945 Arrival Date: 09/09/2024 Time: 09:50 Bed 19 Private MD: ED Physician Alonso Granados HPI: 09/09 10:20 This 79 yrs old Unknown Male presents to ER via Wheelchair with complaints of rn Constipation. 10:20 The patient presents to the emergency department with Constipation. Onset: The rn symptoms/episode began/occurred 6 day(s) ago. Possible causes: unknown. The patient has not experienced similar symptoms in the past. Patient reports constipation, last bowel movement 6 days ago. Is passing small amounts of gas. Reports mild abdominal bloating. No history of bowel obstruction. No chronic constipation. Patient reports surgery 3 months ago but has not been taking pain medication. Has tried stool softeners and is only able to pass liquid stool at this point. Patient states feels stool in the rectum just cannot get it out. No blood in stool.. Historical: - Allergies: 10:10 No Known Allergies; ap3 - Immunization history:: Client reports having NOT received the Covid vaccine. - Infectious Disease History:: Denies. - Social history:: Smoking status: Patient denies any tobacco usage or history of. - Family history:: not pertinent. - Hospitalizations: : No recent hospitalization is reported. ROS: 10:20 Constitutional: Negative for fever, chills, and weight loss, Cardiovascular: Negative rn for chest pain, palpitations, and edema, Respiratory: Negative for shortness of breath, cough, wheezing, and pleuritic chest pain, Abdomen/GI: Negative for nausea, vomiting, diarrhea, positive for constipation Exam: 10:20 Constitutional: This is a well developed, well nourished patient who is awake, alert, rn and in no acute distress. Cardiovascular: Regular rate and rhythm. No pulse deficits. Respiratory: No increased work of breathing, no retractions or nasal flaring. Abdomen/GI: Soft, no focal tenderness. No inguinal masses or evidence of hernia Vital Signs: 10:09 BP 140 / 89; Pulse 87; Resp 18; Temp 98.4; Pulse Ox 96% on R/A; Weight 92.53 kg; Height ap3 6 ft. 2 in. ; 15:10 BP 141 / 79; Pulse 85; Resp 16; Pulse Ox 96% ; bp 10:09 Body Mass Index 26.19 (92.53 kg, 187.96 cm) ap3 MDM: 09:56 Medical Screening Exam initiated rn 13:18 ED course: Patient reevaluated, had small amount of stool response to enema. Of note rn patient was moderately dyspneic upon returning to room, imaging consistent with bilateral pulmonary edema with pleural effusions. And thinks takes Lasix at home. Patient reports still makes urine. Patient reports compliant with dialysis and due for dialysis tomorrow but more dyspneic than normal.. 14:18 Differential diagnosis: Nonspecific abd pain, Fecal impaction, pleural effusion, rn congestive heart failure. Data reviewed: vital signs, nurses notes, lab test result(s), radiologic studies, CT scan, and as a result, I will admit patient. Consideration of Admission/Observation Patient was admitted/placed on observation. Escalation of care including admission/observation considered. Counseling: I had a detailed discussion with the patient and/or guardian regarding the historical points, exam findings, and any diagnostic results supporting the discharge/admit diagnosis, the presence of at least one elevated blood pressure reading (>120/80) during this emergency department visit, lab results, radiology results, the need for further work-up and treatment in the hospital. ED course: Patient with bilateral pleural effusions, moderate, causing tachypnea and dyspnea. Patient winded after returning from bathroom. CT also reveals fecal impaction, small response to enema but patient hesitant to try manual disimpaction due to numerous hemorrhoids and discomfort. Decision made to admit patient for dyspnea and pleural effusions, secondarily the fecal impaction. Patient still makes urine and on lasix. Pt due for dialysis tomorrow. Spoke with spouse as well as son who is a physician who agree about admitting. . 09/09 10:11 Order name: CBC with Diff; Complete Time: 11:32 rn 09/09 10:11 Order name: CMP rn 09/09 10:11 Order name: Lipase rn 09/09 13:17 Order name: BNP rn 09/09 14:42 Order name: Basic Metabolic Panel EDMD 09/09 14:42 Order name: Basic Metabolic Panel EDMD 09/09 14:42 Order name: Basic Metabolic Panel EDMD 09/09 14:42 Order name: Basic Metabolic Panel EDMS 09/09 14:42 Order name: CBC with Automated Diff EDMS 09/09 14:42 Order name: CBC with Automated Diff EDMS 09/09 14:42 Order name: CBC with Automated Diff EDMS 09/09 14:42 Order name: CBC with Automated Diff EDMS 09/09 14:42 Order name: Magnesium EDMS 09/09 14:42 Order name: Magnesium EDMS 09/09 14:42 Order name: Magnesium EDMS 09/09 14:42 Order name: Magnesium EDMS 09/09 10:27 Order name: Abdomen ; Complete Time: 11:32 EDMS 09/09 13:18 Order name: XRAY Chest (1 view); Complete Time: 14:17 rn 09/09 10:11 Order name: IV Saline Lock; Complete Time: 10:44 rn 09/09 10:11 Order name: Labs collected and sent; Complete Time: 10:44 rn Administered Medications: 10:30 Drug: Fleet Enema MD 133 ml MD once; may repeat once Route: MD; bp 11:57 Follow up: Response: No adverse reaction bp 10:33 Not Given (Duplicate Order): ns 0.9% 250 ml IV at bolus once; to be given as a bolus rn over 30 minutes 13:53 Drug: Furosemide IVP 40 mg IVP once; give over 2 minutes Route: IVP; Site: left forearm;bp 15:14 Follow up: Response: No adverse reaction bp 14:38 Drug: Lactulose PO 10 grams 15 ml PO once Volume: 15 ml; Route: PO; bp 15:14 Follow up: Response: No adverse reaction bp Disposition Summary: 09/09/24 14:24 Hospitalization Ordered Notes: Hospitalization Status: Observation rn Provider: Scot Allan rn Location: Telemetry/MedSurg (observation) rn Condition: Stable rn Problem: new rn Symptoms: have improved rn Bed/Room Type: Standard rn Room Assignment: 413(09/09/24 14:52) bd Diagnosis - Pleural effusion in other conditions classified elsewhere rn - Dyspnea, unspecified rn - Fecal impaction rn Forms: - Medication Reconciliation Form rn - SBAR form rn - Leadership Thank You Letter rn Signatures: Dispatcher [employer] Emily Gordon Roman, MD MD rn Montez Garland, COUNTRY PRINTER APPRENTICE-C COUNTRY PRINTER APPRENTICE-Cla1 Haresh Anderson, RN RN bp Kusum Pederson RN RN ap3 Corrections: (The following items were deleted from the chart) 10: 10:12 Abdomen Pelvis W Con+CT.RAD.BRZ ordered. EDMS EDMS 14:52 14:24 rn sandee
--- NOTE | 2024-09-09 14:24 | ER ---
Nurse's Notes [facility] Name: Mayank Cunha Age: 79 yrs Sex: Male : 1945 Arrival Date: 09/09/2024 Time: 09:50 Bed 19 Private MD: Diagnosis: Pleural effusion in other conditions classified elsewhere;Dyspnea, unspecified;Fecal impaction Presentation: 09/09 10:09 Chief complaint: Patient states: he hasn't had a bowel movement in approx 6 days. ap3 patient reports that when he wipes, he does feel "something" there. patient denies any pain, but reports discomfort when he attempts to have a bowel movement. Coronavirus screen: At this time, the client does not indicate any symptoms associated with coronavirus-19. Ebola Screen: No symptoms or risks identified at this time. Initial Sepsis Screen: Does the patient meet any 2 criteria? No. Patient's initial sepsis screen is negative. Does the patient have a suspected source of infection? No. Patient's initial sepsis screen is negative. Risk Assessment: Do you want to hurt yourself or someone else? Patient reports no desire to harm self or others. Onset of symptoms was September 03, 2024. 10:09 Method Of Arrival: Wheelchair ap3 10:09 Acuity: LOREE 3 ap3 Triage Assessment: 10:11 General: Appears uncomfortable, Behavior is calm, cooperative, appropriate for age. ap3 Pain: Complains of pain in abdomen and pelvis Also complains of constipation. Neuro: Level of Consciousness is awake, alert, obeys commands, Oriented to person, place, time, situation, Appropriate for age. Cardiovascular: Patient's skin is warm and dry. Respiratory: Airway is patent Respiratory effort is even, unlabored, Respiratory pattern is regular, symmetrical. GI: Reports constipation. Historical: - Allergies: 10:10 No Known Allergies; ap3 - Immunization history:: Client reports having NOT received the Covid vaccine. - Infectious Disease History:: Denies. - Social history:: Smoking status: Patient denies any tobacco usage or history of. - Family history:: not pertinent. - Hospitalizations: : No recent hospitalization is reported. Screenin:12 Abuse screen: Denies threats or abuse. Nutritional screening: No deficits noted. ap3 Tuberculosis screening: No symptoms or risk factors identified. Assessment: 10:15 General: Appears in no apparent distress. uncomfortable, Behavior is calm, cooperative, bp appropriate for age. 10:15 Neuro: No deficits noted. Cardiovascular: No deficits noted. Respiratory: Breath sounds bp with crackles. GI: Bowel sounds present X 4 quads. Abd is soft X 4 quads. : Bella in place to gravity drainage. EENT: No deficits noted. Derm: No deficits noted. 12:00 Reassessment: No changes from previously documented assessment. Patient is alert, bp oriented x 3, equal unlabored respirations, skin warm/dry/pink. 15:11 Reassessment: REPORT FAXED TO 413. bp Vital Signs: 10:09 BP 140 / 89; Pulse 87; Resp 18; Temp 98.4; Pulse Ox 96% on R/A; Weight 92.53 kg; Height ap3 6 ft. 2 in. ; 15:10 BP 141 / 79; Pulse 85; Resp 16; Pulse Ox 96% ; bp 10:09 Body Mass Index 26.19 (92.53 kg, 187.96 cm) ap3 ED Course: 09:56 Patient arrived in ED. im 09:56 Alonso Granados MD is Attending Physician. rn 10:10 Triage completed. ap3 10:12 Arm band placed on right wrist. ap3 10:12 Patient has correct armband on for positive identification. Bed in low position. Call ap3 light in reach. Side rails up X 1. Adult w/ patient. 10:25 Haresh Anderson, RN is Primary Nurse. bp 10:31 Abdomen In Process Unspecified. EDMS 10:44 Initial lab(s) drawn, by ar, sent to lab. Inserted saline lock: 20 gauge in left bp forearm, using aseptic technique. Blood collected. Flushed with 10 mL NS. 13:40 XRAY Chest (1 view) In Process Unspecified. EDMS 14:22 Scot Allan is Hospitalizing Provider. rn 15:11 No provider procedures requiring assistance completed. Patient admitted, IV remains in bp place. Administered Medications: 10:30 Drug: Fleet Enema DE 133 ml DE once; may repeat once Route: DE; bp 11:57 Follow up: Response: No adverse reaction bp 10:33 Not Given (Duplicate Order): ns 0.9% 250 ml IV at bolus once; to be given as a bolus rn over 30 minutes 13:53 Drug: Furosemide IVP 40 mg IVP once; give over 2 minutes Route: IVP; Site: left forearm;bp 15:14 Follow up: Response: No adverse reaction bp 14:38 Drug: Lactulose PO 10 grams 15 ml PO once Volume: 15 ml; Route: PO; bp 15:14 Follow up: Response: No adverse reaction bp Outcome: 14:24 Decision to Hospitalize by Provider. rn 15:56 Patient left the ED. bp Signatures: Dispatcher [employer] EDMS Alonso Granados MD MD rn Peltier, Haresh RN RN bp Kusum Pederson RN RN ap3 Juany Oconnor Corrections: (The following items were deleted from the chart) 15:11 15:11 Reassessment: REPORT FAXED TO 404 bp bp
[2024-09-09] MEDS ORDERED: LACTULOSE 20 GM/30 ML UCUP ONE (14:34)
[2024-09-09] MEDS ORDERED: ONDANSETRON 4 MG/2 ML VIAL IV PRN (14:38)
[2024-09-09] MEDS ORDERED: ACETAMINOPHEN 325 MG TABLET PO PRN (14:38)
[2024-09-09] MEDS ORDERED: MELATONIN 5 MG TABLET PO PRN (14:40)
--- NOTE | 2024-09-09 16:08 | P.HP ---
Certification for Inpatient Patient admitted to: Observation With expected LOS: <2 Midnights Patient will require the following post-hospital care: None Practitioner: I am a practitioner with admitting privileges, knowledge of patient current condition, hospital course, and medical plan of care. Services: Services provided to patient in accordance with Admission requirements found in Title 42 Section 412.3 of the Code of Federal Regulations Patient History Date of Service: 09/09/24 Reason for admission: Dyspnea, pleural effusion History of Present Illness: 79-year-old male with history of ESRD on HD, recent aortic aneurysm repair, bypass/valve replacement at [facility] in [place] presents to the emergency department for evaluation of constipation, shortness of breath. He reports had not had a bowel movement in the last 6 days as well as being short of breath over his baseline. He is compliant with dialysis, his schedule is TTS. He was evaluated in the ER his labs were significant for redemonstration of his chronic renal disease a sodium of 131 and potassium of 3.3 white blood cell count 11.[address] of the abdomen pelvis was performed without IV contrast which showed that his rectum is distended with stool which may indicate a fecal impaction. Moderate right pleural effusion, 1.4 cm left renal mass probably a benign complex cyst nonemergent renal ultrasound is recommended. Patient with some tachypnea, mild dyspnea and pleural effusion, had some mild improvement with fleets enema but still significant constipated. Will admit under observation for dyspnea, pleural effusion, constipation. Allergies cephalexin [From Keflex] Allergy (Verified 08/07/24 19:32) Rash diltiazem Allergy (Verified 08/07/24 19:32) Rash tape Allergy (Uncoded 08/07/24 19:32) Rash Home Medications: Acetaminophen 2 tab PO Q6H PRN 08/07/24 Aspirin 1 tab PO DAILY 08/07/24 Atorvastatin Calcium [Lipitor] 1 tab PO BEDTIME 08/07/24 Clopidogrel Bisulfate [Plavix*] 1 tab PO DAILY 08/07/24 Cyanocobalamin (Vitamin B-12) [Vitamin B-12] 1 tab PO DAILY 08/07/24 Folic Acid/Vit B Complex and C [Terese-Ko Tablet] 1 tab PO DAILY 08/07/24 Furosemide [Lasix*] 1 tab PO BID 08/07/24 Lactulose 30 ml PO DAILY 08/07/24 Levothyroxine [Synthroid*] 25 mcg PO DAILY 08/07/24 Melatonin [Melatonin*] 1 tab PO BEDTIME 08/07/24 Metoprolol Tartrate [Lopressor*] 0.5 tab PO BID 08/07/24 Pantoprazole [Protonix Tab*] 1 tab PO DAILY 08/07/24 Polyethylene Glycol 3350 [Miralax] 1 packet PO BID 08/07/24 Sennosides/Docusate Sodium [Senna Plus 8.6-50 mg Tablet] 1 tab PO BID 08/07/24 Sevelamer HCl [Renagel] 1 tab PO TIDWM 08/07/24 Tamsulosin [Flomax*] 1 cap PO DAILY 08/07/24 Epoetin [Retacrit] 10,000 unit IV EVERY HD vial 08/16/24 Heparin [Heparin 1,000 units/mL *] 3,000 unit IV EVERY HD PRN vial 08/16/24 Heparin [Heparin 1,000 units/mL *] 6,000 unit IV EVERY HD PRN vial 08/16/24 Midodrine HCl [Proamatine*] 5 mg PO EVERY HD PRN #90 tab 08/16/24 levoFLOXacin [Levaquin*] [facility]12 tab 08/16/24 - Past Medical/Surgical History Diabetic: No -: Hypertension -: GERD -: Dyslipidemia -: BPH -: esrd hd tths -: chronic jenkins -: cad ef 35-40% -: sic after avr -: EGD -: avr -: cabg Psychosocial/ Personal History: Lives at home with family - Family History Father -: Heart disease, Diabetes Mother -: Heart disease, Lung disease, Stroke, Cancer - Social History Alcohol use: No CD- Drugs: No Caffeine use: Yes Place of Residence: Home Review of Systems 10-point ROS is otherwise unremarkable Respiratory: Shortness of Breath Physical Examination - Physical Exam General: Alert, In no apparent distress, Oriented x3 HEENT: Atraumatic, PERRLA Neck: Supple, 2+ carotid pulse no bruit Respiratory: Clear to auscultation bilaterally, Normal air movement Cardiovascular: Regular rate/rhythm, Normal S1 S2 Gastrointestinal: Normal bowel sounds, No tenderness Musculoskeletal: No tenderness Integumentary: No rashes Neurological: Normal speech, Normal strength at 5/5 x4 extr, Normal affect Lymphatics: No axilla or inguinal lymphadenopathy - Studies Laboratory Data (last 24 hrs) 09/09/24 09/09/24 10:41 10:41 WBC 11.90 H Hgb 10.7 L Hct 32.7 L Plt Count 162 Sodium 131 L Potassium 3.3 L BUN 11 Creatinine 3.06 H Glucose 88 Total Bilirubin 0.9 AST 14 L ALT 17 Alkaline Phosphatase 61 Lipase 25 Assessment and Plan - Plan Assessment: Dyspnea, pleural effusions ESRD on HD TTS Constipation/fecal impaction Recent aortic aneurysm repair/aortic valve repair/CABG Hypertension Hyperlipidemia Plan: Dyspnea, pleural effusions ESRD on HD TTS Nephrology consultation Does make some urine, chronic indwelling Jenkins catheter Lasix given in ED, continue IV Lasix Renal ultrasound ordered given abnormal findings on CT with possible cyst versus mass Constipation/fecal impaction Fleets enema given x 2 in ED with some improvement P.o. lactulose given Deferred digital rectal exam/disimpaction as patient has significant hemorrhoids Recent aortic aneurysm repair/aortic valve repair/CABG Hypertension Hyperlipidemia Continue home medications when verified DVT PPX:heparin subq Code status:Full Discharge Plan: Home Plan to discharge in: 24 Hours - Advance Directives Does patient have a Living Will: No Does patient have a Durable POA for Healthcare: No - Code Status/Comfort Care Code Status Assessed: Yes (Full code) Critical Care: No Time Spent Managing Pts Care (In Minutes): 65
--- NOTE | 2024-09-09 17:37 | RAD REPORT ---
EXAMINATION: US RENAL ULTRASOUND CLINICAL INDICATION: abn ct, renal mass/cyst? TECHNIQUE: Real-time ultrasonography of the abdomen was performed. COMPARISON: No prior exam. FINDINGS: RIGHT KIDNEY: Right renal length measurement: 9.6 x 4.8 x 4.6 cm. No hydronephrosis. Small cortical c yst present measuring 10 mm. LEFT KIDNEY: Left renal length measurement: 7.5 x 3.4 x 3.1 cm. No hydronephrosis. Small cortical cys t is present. 21 mm solid appearing lesion seen emanating from the cortex of the left kidney. URINARY BLADDER: Decompressed by Bella catheter. ADDITIONAL FINDINGS: Mildly prominent spleen. IMPRESSION: Questionable 21 mm solid appearing left renal mass. Contrast-enhanced MRI would be useful for furthe r workup.
[2024-09-09 17:43] VITALS: BMI 26.1
[2024-09-09] MEDS: SEVELAMER CARBONATE 800 MG TABLET PO SCH (17:56)
[2024-09-09] MEDS: METOPROLOL TAR 25 MG TAB PO SCH (17:57)
[2024-09-09] MEDS: HEPARIN 5000 UNIT/ML 1 ML VIAL SQ SCH (20:46)
[2024-09-09] MEDS: ATORVASTATIN 40 MG TAB PO SCH (20:46)
[2024-09-09] MEDS: POTASSIUM CL SA 10 MEQ TAB PO ONE (21:44)
[2024-09-10] MEDS: PANTOPRAZOLE 40MG TABLET PO SCH (05:39)
[2024-09-10] MEDS: LEVOTHYROXINE SOD 0.025 MG TAB PO SCH (05:40)
[2024-09-10 06:04] LABS: Absolute Basophils 0.1 K/uL (0-0.5); Absolute Eosinophils 1.2 K/uL (0-0.5); Absolute Lymphocytes (CBC) 1.3 K/uL (0.7-4.9); Absolute Monocytes 0.4 K/uL (0.1-1.3); Absolute Neutrophil 3.8 K/uL (1.8-8.0); Eosinophils % 17.2 % (0-4.4); Hematocrit 30.6 % (39.6-49.0); Hemoglobin 10.3 g/dL (13.6-17.9); Lymphocytes % 18.6 % (15.3-44.8); MCH 27.5 pg (27.0-35.0); MCHC 33.6 g/dL (32.0-36.0); MCV 82.1 fL (80-100); MPV 7.7 fL (7.6-11.3); Monocytes % 6.3 % (3.3-12.3); Neutrophils % 56.9 % (41.7-73.7); Nucleated Red Blood Cells % 0.1 % (0-0); Platelets 150 thou/uL (152-406); RBC Red Blood Cell Count 3.72 M/uL (4.33-5.43); Red Cell Distribution Width 16.4 % (12.1-15.2)
[2024-09-10 06:24] LABS: AST/SGOT 11 U/L (15-37); Albumin/Globulin Ratio 0.9 (1.1-1.8); Alkaline Phosphatase 54 U/L (45-117); Anion Gap 8.6 mEq/L (5.0-15.0); BUN Blood Urea Nitrogen 14 mg/dL (7-18); Bicarbonate 30 mEq/L (21-32); Bilirubin Total 0.8 mg/dL (0.2-1.0); Globulin 3.4 g/dL (2.3-3.5); Glomerular Filtration Rate 18 ml/min (=/>90); Glucose Level 89 mg/dL (74-106); Potassium 3.6 mEq/L (3.5-5.1); Protein, Total 6.4 g/dL (6.4-8.2); Sodium Level 134 mEq/L (136-145)
[2024-09-10 06:29] LABS: ALT/SGPT < 14 U/L (16-61)
[2024-09-10 07:56] LABS: Differential Total Cells Count 100; Eosinophils 14 % (0-3); Lymphocytes 19 % (15-42); Monocytes 5 % (0-10); Segmented Neutrophils 60 % (40-80)
[2024-09-10 07:57] LABS: Anisocytosis 1+; Blood Morphology Comment NOTED (NOT SEEN); Platelet Estimate DECR
[2024-09-10] MEDS: FUROSEMIDE 40 MG/4 ML VIAL IV SCH (08:33)
[2024-09-10] MEDS: ASPIRIN EC 81 MG TAB PO SCH (08:33)
[2024-09-10] MEDS: FOLIC ACID 1 MG TABLET PO SCH (08:33)
[2024-09-10] MEDS: CLOPIDOGREL 75 MG TABLET PO SCH (08:33)
[2024-09-10] MEDS: FLEET ENEMA ADULT PR ONE (08:50)
[2024-09-10] MEDS: POLYETHYL GLY 3350 17 GM/DOSE PO ONE ×2 (08:50→15:33)
[2024-09-10] MEDS: EPOETIN 4,000 UNIT/ML VIAL IV SCH (13:00)
[2024-09-10 14:03] VITALS: O2SAT 98
--- NOTE | 2024-09-10 16:38 | CON ---
Date of Consultation: 09/10/2024 Reason For Consultation: End-stage renal disease, over volume, electrolyte imbalance. History Of Present Illness: This is a pleasant 79-year-old gentleman, well known to me from the dialysis and from the office. Follow up with Dr. Bishop as outpatient. Dialysis with significant past medical history of end-stage renal disease secondary to cardiorenal, recently was initiated on dialysis, hypertension, hyperlipidemia, CAD with congestive heart failure, ejection fraction of 30%, status post valve repair recently, the patient followup with [facility], congestive heart failure, ejection fraction of 30%, the patient came to the hospital complaining from constipation for the last few days with shortness of breath. For that reason, was admitted. The patient found to have hyponatremia, hypokalemia, and over volume. For that reason, we have been consulted. The patient denied any chest pain. Past Medical History: Include: 1. Hypertension. 2. Gastroesophageal reflux disease. 3. Hyperlipidemia. 4. End-stage renal disease, on hemodialysis, TTS. 5. CAD with valvular heart disease, status post valve repair. 6. Coronary artery bypass graft. Past Surgical History: Include: 1. Valve repair. 2. CABG. 3. TDC placement. Family History: Positive for diabetes and hypertension. Social History: Denied smoking. Denied drinking. Denied drugs abuse. Review of Systems: Head and Neck: No red eye. No ear pain. GI: No nausea, no vomiting. Has constipation. : No polyuria. No dysuria. No hematuria. 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 Respiratory: Has shortness of breath. Cardiovascular: No chest pain. Endocrine: No polydipsia. Skin: No rash. Neuro: Has weakness. Musculoskeletal: Generalized fatigue. Extremity: No edema. Physical Examination: Vital Signs: When I saw the patient, blood pressure of 146/68, pulse of 65. Chest: Clear to auscultation. Heart S1, S2. Systolic murmur. Abdomen: Soft nontender. Extremity: No edema. Neurologic: Alert. No focality. Laboratory Data: WBC 6.7, hemoglobin 10.3. Sodium 134, potassium 3.6, bicarb 30, BUN 14, creatinine 3.3, calcium 8.4, phosphorus 5. Current Medications: The patient on include Plavix, Epogen, heparin, Lasix, Tylenol, Renvela, pantoprazole. Assessment And Plan: 1. End-stage renal disease, over volume. We will do the patient dialysis today. We will challenge the patient and we will follow up. 2. Over volume. Patient is going to be challenged on dialysis today, then back to his schedule. 3. Secondary hyperparathyroid. Continue Renvela. 4. Anemia of chronic kidney disease. Resume NATACHA. 5. Hyponatremia dilutional secondary to renal failure. Will be corrected with dialysis. XENIA Voice ID: [id number] Report ID: [id number]
--- NOTE | 2024-09-10 17:03 | P.DS ---
Admission Date: 09/09/24 Discharge Date: 09/10/24 Disposition: ROUTINE DISCHARGE Discharge Condition: GOOD Reason for Admission: Dyspnea, pleural effusion Brief History of Present Illness: 79-year-old male with history of ESRD on HD, recent aortic aneurysm repair, bypass/valve replacement at [facility] in [place] presents to the emergency department for evaluation of constipation, shortness of breath. He reports had not had a bowel movement in the last 6 days as well as being short of breath over his baseline. He is compliant with dialysis, his schedule is TTS. He was evaluated in the ER his labs were significant for redemonstration of his chronic renal disease a sodium of 131 and potassium of 3.3 white blood cell count 11.[address] of the abdomen pelvis was performed without IV contrast which showed that his rectum is distended with stool which may indicate a fecal impaction. Moderate right pleural effusion, 1.4 cm left renal mass probably a benign complex cyst nonemergent renal ultrasound is recommended. Patient with some tachypnea, mild dyspnea and pleural effusion, had some mild improvement with fleets enema but still significant constipated. Will admit under observation for dyspnea, pleural effusion, constipation. Hospital Course: Assessment: New onset atrial flutter Dyspnea, pleural effusions ESRD on HD TTS with volume overload Constipation/fecal impaction Recent aortic aneurysm repair/aortic valve repair/CABG x 2 Urinary retention with Bella catheter in place 21 mm left renal mass Hypertension Hyperlipidemia Patient was admitted to the hospital for constipation/fecal impaction, dyspnea with pleural effusions. He is on dialysis outpatient Monday and Saturdays which she has been compliant with. Of note he had a prolonged hospitalization after he underwent a ascending aortic aneurysm repair, aortic valve replacement, two-vessel CABG 4 weeks prior to this hospitalization. He was treated with fleets enemas, p.o. lactulose and he had resolution of his constipation with multiple bowel movements during hospitalization, states the symptoms have improved, we recommend taking daily MiraLAX for now to assist with regular bowel movements. Patient was diuresed with IV Lasix and underwent hemodialysis in the hospital and his tachypnea/dyspnea have resolved. He is seen by nephrology recommends resuming with his scheduled outpatient HD on TTS. He had a CT scan of his abdomen pelvis which noted a suspected complex cyst to the left kidney but recommended nonemergent renal ultrasound, renal ultrasound was performed during his hospitalization which showed questionable 21 mm solid- appearing left renal mass. This was discussed with urology who recommends further evaluation as an outpatient with around 3-month follow-up. This was also discussed with the patient's son who is a physician and was aware of the mass, stating that in May was read 1.5 cm. Patient also has a indwelling Bella catheter since April of last year and has not been able to see urology at outpatient, our urologist will attempt to get them in and help arrange for definitive care outpatient. Dr. Grossman information supplied on discharge report. Additionally patient reported that at his erp implementation consultant office 2 days ago they mentioned that he could be in atrial flutter, EKG was obtained which did demonstrate rate controlled atrial flutter, he has been rate controlled throughout his hospitalization with rates between 60s and 80s. This was discussed with cardiology, patient currently was on aspirin and Plavix, it was recommended that we discontinue the aspirin and start Eliquis 2.5 mg twice daily in addition to the Plavix. Patient should also follow-up with [facility] cardiology group for repeat echocardiogram which he was due for. STOP aspirin Start taking eliquis 2.5mg twice daily to reduce risk of stroke Vital Signs/Physical Exam: Temp Pulse Resp BP Pulse Ox 97.4 F 70 18 119/55 L 98 09/10/24 08:00 09/10/24 16:52 09/10/24 08:00 09/10/24 16:52 09/10/24 08:00 General: Alert, In no apparent distress, Oriented x3 HEENT: Atraumatic, PERRLA Neck: Supple, JVD not distended Respiratory: Clear to auscultation bilaterally, Normal air movement Cardiovascular: Irregular heart rate/rhythm (atrial flutter rate 70s), Systolic murmur Gastrointestinal: Non-distended Musculoskeletal: No contractures Neurological: Normal tone, Normal affect Laboratory Data at Discharge: WBC 6.70 thou/uL (4.3-10.9) 09/10/24 05:27 Hgb 10.3 g/dL (13.6-17.9) L 09/10/24 05:27 Hct 30.6 % (39.6-49.0) L 09/10/24 05:27 Plt Count 150 thou/uL (152-406) L 09/10/24 05:27 Sodium 134 mEq/L (136-145) L 09/10/24 05:27 Potassium 3.6 mEq/L (3.5-5.1) 09/10/24 05:27 BUN 14 mg/dL (7-18) 09/10/24 05:27 Creatinine 3.32 mg/dL (0.70-1.30) H 09/10/24 05:27 Glucose 89 mg/dL (74-106) 09/10/24 05:27 Phosphorus 5.0 mg/dL (2.5-4.9) H 09/10/24 05:27 Magnesium 2.0 mg/dL (1.6-2.4) 09/10/24 05:27 Total Bilirubin 0.8 mg/dL (0.2-1.0) 09/10/24 05:27 AST 11 U/L (15-37) L 09/10/24 05:27 ALT < 14 U/L (16-61) L 09/10/24 05:27 Alkaline Phosphatase 54 U/L (45-117) 09/10/24 05:27 Lipase 25 U/L (13-75) 09/09/24 10:41 Home Medications: Acetaminophen 2 tab PO Q6H PRN 08/07/24 Atorvastatin Calcium [Lipitor] 1 tab PO BEDTIME 08/07/24 Clopidogrel Bisulfate [Plavix*] 1 tab PO DAILY 08/07/24 Cyanocobalamin (Vitamin B-12) [Vitamin B-12] 1 tab PO DAILY 08/07/24 Folic Acid/Vit B Complex and C [Terese-Ko Tablet] 1 tab PO DAILY 08/07/24 Furosemide [Lasix*] 1 tab PO BID 08/07/24 Levothyroxine [Synthroid*] 25 mcg PO DAILY 08/07/24 Melatonin [Melatonin*] 1 tab PO BEDTIME 08/07/24 Metoprolol Tartrate [Lopressor*] 0.5 tab PO BID 08/07/24 Pantoprazole [Protonix Tab*] 1 tab PO DAILY 08/07/24 Sevelamer HCl [Renagel] 1 tab PO TIDWM 08/07/24 Tamsulosin [Flomax*] 1 cap PO DAILY 08/07/24 Apixaban [Eliquis] 2.5 mg PO BID #60 tablet 09/10/24 New Medications: Apixaban [Eliquis] 2.5 mg PO BID #60 tablet Physician Discharge Instructions: Patient was admitted to the hospital for constipation/fecal impaction, dyspnea with pleural effusions. He is on dialysis outpatient Monday and Saturdays which she has been compliant with. Of note he had a prolonged hospitalization after he underwent a ascending aortic aneurysm repair, aortic v alve replacement, two-vessel CABG 4 weeks prior to this hospitalization. He was treated with fleets enemas, p.o. lactulose and he had resolution of his constipation with multiple bowel movements during hospitalization, states the symptoms have improved, we recommend taking daily MiraLAX for now to assist with regular bowel movements. Patient was diuresed with IV Lasix and underwent hemodialysis in the hospital and his tachypnea/dyspnea have resolved. He is seen by nephrology recommends resuming with his scheduled outpatient HD on TTS. He had a CT scan of his abdomen pelvis which noted a suspected complex cyst to the left kidney but recommended nonemergent renal ultrasound, renal ultrasound was performed during his hospitalization which showed questionable 21 mm solid- appearing left renal mass. This was discussed with urology who recommends further evaluation as an outpatient with around 3-month follow-up. This was also discussed with the patient's son who is a physician and was aware of the mass, stating that in May was read 1.5 cm. Patient also has a indwelling Bella catheter since April of last year and has not been able to see urology at outpatient, our urologist will attempt to get them in and help arrange for definitive care outpatient. Dr. Grossman information supplied on discharge report. Additionally patient reported that at his erp implementation consultant office 2 days ago they mentioned that he could be in atrial flutter, EKG was obtained which did demonstrate rate controlled atrial flutter, he has been rate controlled throughout his hospitalization with rates between 60s and 80s. This was discussed with cardiology, patient currently was on aspirin and Plavix, it was recommended that we discontinue the aspirin and start Eliquis 2.5 mg twice daily in addition to the Plavix. Patient should also follow-up with [facility] cardiology group for repeat echocardiogram which he was due for. STOP aspirin Start taking eliquis 2.5mg twice daily to reduce risk of stroke Diet: Renal Activity: Fall precautions (walker) Followup: OOT,OOT [Primary Care Provider] - 1-2 Weeks Ranjith Grossman [ACTIVE - CAN ADMIT] - 1-2 Weeks Time spent managing pt's care (in minutes): 62
[2024-09-10 17:16] VITALS: TEMP 97.6
[2024-09-10 20:03] VITALS: BP 118/59
--- NOTE | 2024-09-11 11:59 | EKG ---
Test Date: 2024-09-10 Test Time: 15:05:23 Counter Clerk: MEASUREMENT RESULTS: Intervals: Rate: 70 NE: 184 QRSD: 184 QT: 462 QTc: 498 [place]: P: 87 NE: 184 QRS: -54 T: 97 INTERPRETIVE STATEMENTS: Sinus rhythm with premature supraventricular complexes Left axis deviation Right bundle branch block T wave abnormality, consider lateral ischemia Abnormal ECG Compared to ECG 08/12/2024 10:04:23 Atrial premature complex(es) now present Atrial fibrillation no longer present T-wave abnormality still present Possible ischemia still present Electronically Signed On 09-11-24 11:57:23 CDT by Kalpesh Cat
== END 2024-09-10 20:56 | disposition home or self-care (01) ==
LOC: ER 09:50 → ERHOLD 14:37 → 4TH 15:18
PROVIDERS: ADMIT Internal Medicine; ATTEND Hospitalist
DX: N18.6 End stage renal disease (principal); J90 Pleural effusion, not elsewhere classified; K59.00 Constipation, unspecified; I10 Essential (primary) hypertension; R06.00 Dyspnea, unspecified; E78.5 Hyperlipidemia, unspecified; K21.9 Gastro-esophageal reflux disease without esophagitis; I25.10 Atherosclerotic heart disease of native coronary artery without angina pectoris; E11.9 Type 2 diabetes mellitus without complications; I48.92 Unspecified atrial flutter; R33.9 Retention of urine, unspecified; N28.89 Other specified disorders of kidney and ureter; Z95.1 Presence of aortocoronary bypass graft; Z99.2 Dependence on renal dialysis; Z88.1 Allergy status to other antibiotic agents
CPT/HCPCS: 85025 ×2; 36415; 83735; 84100; 83690; 80053 ×2; 83880; 74176; 71045; 90935; 76770; 97116; 97161; 96374; 99284; J1644 ×2; Q5105; J1940 ×3; 93005; G0378